=== PATIENT | female | born 1935 | race Caucasian/White ===

== ENCOUNTER → 2016-09-24 | Outpatient (CLI) | payer MEDICARE, OTHER ==
--- NOTE | 2016-09-24 14:58 | US ---
EXAMINATION TYPE: US carotid duplex BILAT DATE OF EXAM: 09/24/2016 2:15 PM COMPARISON: NONE CLINICAL HISTORY: Carotid Bruit R09.89. Carotid bruit right side EXAM MEASUREMENTS: RIGHT: Peak Systolic Velocity (PSV) cm/sec ----- Right CCA: 68.6 ----- Right ICA: 94.1 ----- Right ECA: 99.6 ICA/CCA ratio: 1.4 RIGHT: End Diastole cm/sec ----- Right CCA: 13.6 ----- Right ICA: 32.5 ----- Right ECA: 0.0 LEFT: Peak Systolic Velocity (PSV) cm/sec ----- Left CCA: 74.7 ----- Left ICA: 76.4 ----- Left ECA: 119.8 ICA/CCA ratio: 1.0 LEFT: End Diastole cm/sec ----- Left CCA: 18.8 ----- Left ICA: 27.6 ----- Left ECA: 12.4 VERTEBRALS (direction of flow): Right Vertebral: Antegrade Left Vertebral: Antegrade TECHNOLOGIST IMPRESSION: No evidence of significant hemodynamic stenosis bilaterally Grayscale, color Doppler, spectral Doppler imaging performed. Atheromatous changes are present at the carotid bulbs. IMPRESSION: No hemodynamic significant stenosis of the proximal internal carotid arteries bilaterall y by Doppler criteria, and indirect measurement of carotid stenosis
== END | disposition home or self-care (01) ==
LOC: RADUSWWP 13:54
PROVIDERS: ATTEND Family Medicine
DX: R09.89 Other specified symptoms and signs involving the circulatory and respiratory systems (principal)
CPT/HCPCS: 93880

== ENCOUNTER 2017-04-28 16:23 | Emergency (ER) | payer MEDICARE, OTHER ==
[2017-04-28] MEDS ORDERED: SODIUM CHLORIDE 0.9% 1,000 ML IV STA (17:01)
[2017-04-28 17:30] LABS: Basophils % (A) 0 %; CH 29.7; CHCM 33.4; Eosinophils # (A) 0.1 k/uL (0-0.7); Eosinophils % (A) 2 %; HCT 40.4 % (34.0-46.0); HDW 2.22; HGB 13.4 gm/dL (11.4-16.0); Luc # (Auto) 0.08; Luc % (Auto) 2; Lymphocytes # (A) 0.9 k/uL (1.0-4.8); Lymphocytes % (A) 21 %; MCH 29.5 pg (25.0-35.0); MCHC 33.1 g/dL (31.0-37.0); MCV 89.1 fL (80.0-100.0); Mean Platelet Volume 7.3; Monocytes # (A) 0.3 k/uL (0-1.0); Monocytes % (A) 7 %; Neutrophils % (A) 68 %; RBC 4.53 m/uL (3.80-5.40); RDW 13.3 % (11.5-15.5); WBC 4.4 k/uL (3.8-10.6)
[2017-04-28 17:43] LABS: ALT 28 U/L (9-52); AST 18 U/L (14-36); Alkaline Phosphatase 70 U/L (38-126); Anion Gap 9 mmol/L; Blood Urea Nitrogen 11 mg/dL (7-17); Carbon Dioxide 22 mmol/L (22-30); Chloride 104 mmol/L (98-107); Glucose 93 mg/dL (74-99); Non-African American GFR(MDRD) 60 (>60 ml/min/1.73 sqM); Potassium 4.2 mmol/L (3.5-5.1); Sodium 135 mmol/L (137-145); Total Bilirubin 0.3 mg/dL (0.2-1.3); Total Protein 6.5 g/dL (6.3-8.2)
--- NOTE | 2017-04-28 17:49 | ED ---
General Adult HPI - General Chief complaint: Urogenital Stated complaint: UTI Time Seen by Provider: 04/28/17 16:52 Source: patient, RN notes reviewed Mode of arrival: wheelchair Limitations: no limitations - History of Present Illness Initial comments: 82-year-old female presents emergency Department chief complaint of right-sided flank pain. Patient states it started on for this with her Dr. she was diagnosed with UTI. Patient states her flank pain has been progressively worsening. Patient states she's had low-grade fevers at home. Patient states she's had nausea without vomiting. She called her doctor today and they referred her here due to her worsening symptoms. She states that she started the antibiotics initially 5:00. Patient was concerned due to the fact that she is just not feeling any better and she is getting worse so she thought that she should be reevaluated. Patient denies any recent fever, chills, shortness of breath, chest pain,vomiting, numbness or tingling, dysuria or hematuria, constipation or diarrhea, headaches or visual changes, or any other current symptoms. - Related Data Home Medications Medication Instructions Recorded Confirmed Cholecalciferol [Vitamin D3] 1,000 unit PO DAILY 12/14/14 04/28/17 Cyanocobalamin [Vitamin B-12] 500 mcg PO DAILY 12/14/14 04/28/17 Ubidecarenone [Co Q-10] 100 mg PO DAILY 12/14/14 04/28/17 Cephalexin [Keflex] 500 mg PO Q6HR 04/28/17 04/28/17 Ibuprofen [Motrin] 200 - 400 mg PO Q6HR PRN 04/28/17 04/28/17 Levothyroxine Sodium [Synthroid] 88 mcg PO DAILY 04/28/17 04/28/17 Previous Rx's Medication Instructions Recorded Levofloxacin [Levaquin] 750 mg PO DAILY #7 tab 04/28/17 Allergies Allergy/AdvReac Type Severity Reaction Status Date / Time Iodinated Contrast- Oral and Allergy Anaphylaxis Verified 04/28/17 16:52 IV Dye [Iodinated Contrast Media - IV Dye] atorvastatin calcium AdvReac Nausea Verified 04/28/17 16:52 [From Lipitor] celecoxib [From Celebrex] AdvReac Nausea Verified 04/28/17 16:52 influenza virus vaccine, AdvReac Nausea & Verified 04/28/17 16:29 specific Vomiting [influenza virus vacc,specific] Influenza Virus Vaccines AdvReac Nausea & Verified 04/28/17 16:52 Vomiting & Diarrhea Review of Systems ROS Statement: Those systems with pertinent positive or pertinent negative responses have been documented in the HPI. ROS Other: All systems not noted in ROS Statement are negative. Past Medical History Past Medical History: Cancer, Hearing Disorder / Deafness, Hyperlipidemia, Osteoarthritis (OA), Thyroid Disorder Additional Past Medical History / Comment(s): bowel obstruction, right breast cancer, skin cancer, osteoporosis History of Any Multi-Drug Resistant Organisms: MRSA Date of last positivie culture/infection: Pt states 6-7yrs ago MDRO Source:: post surgical wound from bowel resection Past Surgical History: Bowel Resection, Breast Surgery, Cholecystectomy, Hysterectomy Additional Past Surgical History / Comment(s): bilateral cataracts Past Anesthesia/Blood Transfusion Reactions: No Reported Reaction Past Psychological History: No Psychological Hx Reported Smoking Status: Never smoker Past Alcohol Use History: None Reported Past Drug Use History: None Reported - Past Family History Mother Additional Family Medical History / Comment(s): Stomach cancer Father Family Medical History: CVA/TIA General Exam - General Exam Comments Initial Comments: General: The patient is awake and alert, in no distress, and does not appear acutely ill. Eye: Pupils are equal, round and reactive to light, extra-ocular movements are intact; there is normal conjunctiva bilaterally. No signs of icterus. Ears, nose, mouth and throat: There are moist mucous membranes and no oral lesions. Neck: The neck is supple, there is no tenderness. Cardiovascular: There is a regular rate and rhythm. No murmur, rub or gallop is appreciated. Respiratory: Lungs are clear to auscultation, respirations are non-labored, breath sounds are equal. No wheezes, stridor, rales, or rhonchi. Gastrointestinal: Soft, non-distended, mild tenderness in right lower quadrant of the abdomen without masses or organomegaly noted. There is no rebound or guarding present. No CVA tenderness. Bowel sounds are unremarkable. Back: There is no tenderness to palpation in the midline. There is no obvious deformity. No rashes noted. Musculoskeletal: Normal ROM, no tenderness, There is no pedal edema. There is no calf tenderness or swelling. Sensation intact. Pulses equal bilaterally 2+. Neurological: CN II-XII intact, There are no obvious motor or sensory deficits. Coordination appears grossly intact. Speech is normal. Skin: Skin is warm and dry and no rashes or lesions are noted. Psychiatric: Cooperative, appropriate mood & affect, normal judgment. Limitations: no limitations Course Vital Signs 04/28/17 16:26 Temperature 99.1 F Pulse Rate 93 Respiratory 18 Rate Blood Pressure 127/71 O2 Sat by Pulse 95 Oximetry Medical Decision Making - Medical Decision Making 82-year-old female presents for right-sided abdominal pain. At this time patient's laboratory is reviewed that does show no white blood cell, vital signs are stable she does appear to have suspicion for UTI and CT does show suspicion for right lower lobe pneumonia. This time we will put the patient on Levaquin. We discussed stopping the Keflex. We discussed close follow-up return parameters all patient's questions. She stated she understood and she is agreement plan. She'll be discharged. - Lab Data Result diagrams: 04/28/17 17:18 04/28/17 17:18 Lab Results 04/28/17 04/28/17 04/28/17 Range/Units 17:18 17:18 17:18 WBC 4.4 (3.8-10.6) k/uL RBC 4.53 (3.80-5.40) m/uL Hgb 13.4 (11.4-16.0) gm/dL Hct 40.4 (34.0-46.0) % MCV 89.1 (80.0-100.0) fL MCH 29.5 (25.0-35.0) pg MCHC 33.1 (31.0-37.0) g/dL RDW 13.3 (11.5-15.5) % Plt Count 178 (150-450) k/uL Neutrophils % 68 % Lymphocytes % 21 % Monocytes % 7 % Eosinophils % 2 % Basophils % 0 % Neutrophils # 3.0 (1.3-7.7) k/uL Lymphocytes # 0.9 L (1.0-4.8) k/uL Monocytes # 0.3 (0-1.0) k/uL Eosinophils # 0.1 (0-0.7) k/uL Basophils # 0.0 (0-0.2) k/uL Sodium 135 L (137-145) mmol/L Potassium 4.2 (3.5-5.1) mmol/L Chloride 104 (98-107) mmol/L Carbon Dioxide 22 (22-30) mmol/L Anion Gap 9 mmol/L BUN 11 (7-17) mg/dL Creatinine 0.90 (0.52-1.04) mg/dL Est GFR (MDRD) Af Amer >60 (>60 ml/min/1.73 sqM) Est GFR (MDRD) Non-Af 60 (>60 ml/min/1.73 sqM) Glucose 93 (74-99) mg/dL Plasma Lactic Acid Jefferson 1.6 (0.7-2.0) mmol/L Calcium 9.0 (8.4-10.2) mg/dL Total Bilirubin 0.3 (0.2-1.3) mg/dL AST 18 (14-36) U/L ALT 28 (9-52) U/L Alkaline Phosphatase 70 (38-126) U/L Total Protein 6.5 (6.3-8.2) g/dL Albumin 3.5 (3.5-5.0) g/dL Urine Color Urine Appearance (Clear) Urine pH (5.0-8.0) Ur Specific [place] (1.001-1.035) Urine Protein (Negative) Urine Glucose (UA) (Negative) Urine Ketones (Negative) Urine Blood (Negative) Urine Nitrite (Negative) Urine Bilirubin (Negative) Urine Urobilinogen (<2.0) mg/dL Ur Leukocyte Esterase (Negative) Urine RBC (0-5) /hpf Urine WBC (0-5) /hpf Ur Squamous Epith Cells (0-4) /hpf Urine Bacteria (None) /hpf Urine Mucus (None) /hpf 04/28/17 Range/Units 17:43 WBC (3.8-10.6) k/uL RBC (3.80-5.40) m/uL Hgb (11.4-16.0) gm/dL Hct (34.0-46.0) % MCV (80.0-100.0) fL MCH (25.0-35.0) pg MCHC (31.0-37.0) g/dL RDW (11.5-15.5) % Plt Count (150-450) k/uL Neutrophils % % Lymphocytes % % Monocytes % % Eosinophils % % Basophils % % Neutrophils # (1.3-7.7) k/uL Lymphocytes # (1.0-4.8) k/uL Monocytes # (0-1.0) k/uL Eosinophils # (0-0.7) k/uL Basophils # (0-0.2) k/uL Sodium (137-145) mmol/L Potassium (3.5-5.1) mmol/L Chloride (98-107) mmol/L Carbon Dioxide (22-30) mmol/L Anion Gap mmol/L BUN (7-17) mg/dL Creatinine (0.52-1.04) mg/dL Est GFR (MDRD) Af Amer (>60 ml/min/1.73 sqM) Est GFR (MDRD) Non-Af (>60 ml/min/1.73 sqM) Glucose (74-99) mg/dL Plasma Lactic Acid Jefferson (0.7-2.0) mmol/L Calcium (8.4-10.2) mg/dL Total Bilirubin (0.2-1.3) mg/dL AST (14-36) U/L ALT (9-52) U/L Alkaline Phosphatase (38-126) U/L Total Protein (6.3-8.2) g/dL Albumin (3.5-5.0) g/dL Urine Color Yellow Urine Appearance Clear (Clear) Urine pH 6.0 (5.0-8.0) Ur Specific [place] 1.012 (1.001-1.035) Urine Protein Negative (Negative) Urine Glucose (UA) Negative (Negative) Urine Ketones Negative (Negative) Urine Blood Negative (Negative) Urine Nitrite Negative (Negative) Urine Bilirubin Negative (Negative) Urine Urobilinogen <2.0 (<2.0) mg/dL Ur Leukocyte Esterase Large H (Negative) Urine RBC <1 (0-5) /hpf Urine WBC 46 H (0-5) /hpf Ur Squamous Epith Cells <1 (0-4) /hpf Urine Bacteria Rare H (None) /hpf Urine Mucus Rare H (None) /hpf - Radiology Data Radiology results: report reviewed, image reviewed Disposition Clinical Impression: Right lower lobe pneumonia, UTI (urinary tract infection) Disposition: HOME SELF-CARE Instructions: Urinary Tract Infection in Women (ED), Bacterial Pneumonia (ED) Additional Instructions: Please use medication as discussed. Please follow up with family doctor if symptoms have not improved over the next two days. Please return to the emergency room if your symptoms increase or worsen or for any other concerns. Prescriptions: Levofloxacin [Levaquin] 750 mg PO DAILY #7 tab Referrals: Rob Arias MD [Primary Care Provider] - 1-2 days Time of Disposition: 18:39
[2017-04-28 17:59] LABS: Appearance,Urine Clear (Clear); Bacteria,Urine Rare /hpf; Bilirubin,Urine Negative (Negative); Glucose,Urine (UA) Negative (Negative); Ketones,Urine Negative (Negative); Leukocyte Esterase,Urine Large (Negative); Mucus,Urine Rare /hpf; Nitrite,Urine Negative (Negative); Particle Count 1168; Protein,Urine Negative (Negative); RBC,Urine <1 /hpf (0-5); Specific Gravity,Urine 1.012 (1.001-1.035); Squamous Epithelial Cell,Urine <1 /hpf (0-4); UA Billing (MACRO vs. MICRO) MICRO; Urobilinogen,Urine <2.0 mg/dL (<2.0); WBC,Urine 46 /hpf (0-5)
--- NOTE | 2017-04-28 18:28 | CT ---
EXAMINATION TYPE: CT abdomen pelvis wo con DATE OF EXAM: 04/28/2017 COMPARISON: 08/26/2015 HISTORY: Patient complains of right flank pain and fever. CT DLP: 400.8 mGycm Automated exposure control for dose reduction was used. TECHNIQUE: Helical acquisition of images was performed from the lung bases through the pelvis. FINDINGS: There is some patchy pneumonic consolidation at the right posterior lung base. There is a hiatal girma ia. There is no pleural effusion. There are clips from cholecystectomy. Spleen and pancreas appear normal. Liver shows no focal defect. There is umbilical hernia that contains omental fat. I see no intestinal wall thickening. Bladder is almost empty. There is fluid-filled loop of bowel in the pelvis on the right side that is probably the cecum. There are spondylotic changes in the lumbar spine. Abdominal aorta is atheromatous. There is no retroperitoneal adenopathy. Kidneys have normal size. There is no hydronephrosis. Ureters are not dilated. There is no adrenal ma ss. Common bile duct is large and measures 1.5 cm. There is no dilation of the intrahepatic bile ducts. IMPRESSION: Hiatal hernia. UMBILICAL HERNIA CONTAINS OMENTAL FAT. THERE IS CLEARING OF THE SMALL BOWEL ILEUS FINDINGS COMPARED T O OLD EXAM. STABLE MILDLY DILATED COMMON BILE DUCT BUT NO DILATION OF THE INTRAHEPATIC BILE DUCTS. THERE IS NEW RIGHT LOWER LOBE PNEUMONIA COMPARED TO OLD EXAM.
[2017-04-28] MEDS ORDERED: LEVOFLOXACIN 750 MG TAB PO STA (18:40)
[2017-04-28] MEDS ORDERED: HYDROmorphone 1 MG/ML 1 ML SYRINGE IVP STA (18:40)
[2017-04-28 19:42] VITALS: BP 144/64; PULSE 85; RESP 18; TEMP 98.4
== END 2017-04-28 19:53 | disposition home or self-care (01) ==
LOC: EC 16:23
DX: J18.9 Pneumonia, unspecified organism (principal); N39.0 Urinary tract infection, site not specified; E07.9 Disorder of thyroid, unspecified; Z85.3 Personal history of malignant neoplasm of breast; Z85.828 Personal history of other malignant neoplasm of skin; Z86.14 Personal history of Methicillin resistant Staphylococcus aureus infection; Z90.49 Acquired absence of other specified parts of digestive tract; Z90.710 Acquired absence of both cervix and uterus; Z79.899 Other long term (current) drug therapy; Z91.041 Radiographic dye allergy status; Z88.8 Allergy status to other drugs, medicaments and biological substances; Z88.1 Allergy status to other antibiotic agents; Z88.7 Allergy status to serum and vaccine
CPT/HCPCS: 36415; 80053; 83605; 85025; 81001; 87040; 87086; 74176; 99284; 96365; 96375; 96361; J0696; J1170

== ENCOUNTER → 2017-10-12 | Outpatient (CLI) | payer MEDICARE ==
--- NOTE | 2017-10-12 16:29 | XR ---
EXAMINATION TYPE: XR chest 2V DATE OF EXAM: 10/12/2017 COMPARISON: Prior chest x-ray 12/13/2014 HISTORY: Dyspnea TECHNIQUE: Frontal and lateral views of the chest are obtained. FINDINGS: There is no focal air space opacity, pleural effusion, or pneumothorax seen. The cardiac silhouette size is within normal limits. Prominent lung volume could be indicative of COPD. Surgical clips present in the right axillary region again noted. Patient is rotated, there may be spinal curva ture. Apical pleural thickening is stable. The osseous structures are intact. IMPRESSION: No acute cardiopulmonary process.
== END | disposition home or self-care (01) ==
LOC: RADXRMAIN 15:35
PROVIDERS: ATTEND Physician Assistant
DX: R06.00 Dyspnea, unspecified (principal)
CPT/HCPCS: 71046

== ENCOUNTER 2018-02-03 10:15 | Day surgery (SDC) | payer MEDICARE ==
[2018-02-02 09:48] VITALS: BMI 29.2
--- NOTE | 2018-02-03 09:13 | P.GSHP ---
History of Present Illness H&P Date: 02/03/18 CHIEF COMPLAINT: Colon screen HISTORY OF PRESENT ILLNESS: The patient is a 83-year-old female who presents for colon screen. Lower endoscopy was offered for further evaluation and management. PAST MEDICAL HISTORY: Please see list. PAST SURGICAL HISTORY: Please see list. MEDICATIONS: Please see list. ALLERGIES: Please see list. SOCIAL HISTORY: No illicit drug use FAMILY HISTORY: No reports of Crohn disease or ulcerative colitis. REVIEW OF ORGAN SYSTEMS: CONSTITUTIONAL: No reports of fevers or chills. PHYSICAL EXAM: VITAL SIGNS: Stable GENERAL: Well-developed pleasant in no acute distress. HEENT: No scleral icterus. Extraocular movements grossly intact. Moist buccal mucosa. NECK: Supple without lymphadenopathy. CHEST: Unlabored respirations. Equal bilateral excursions. CARDIOVASCULAR: Regular rate and rhythm. Distal 2+ pulses. ABDOMEN: Soft, nontender, nondistended. MUSCULOSKELETAL: No clubbing, cyanosis, or edema. ASSESSMENT: 1. Colon screen. PLAN: 1. Recommend proceeding with a lower endoscopy Past Medical History Past Medical History: Cancer, Hearing Disorder / Deafness, Hyperlipidemia, Osteoarthritis (OA), Thyroid Disorder Additional Past Medical History / Comment(s): constipation for 2 1/2 weeks, able to pass gas and very small amounts of stools,Hx bowel obstruction, right breast cancer-1997 no chemo or radiation, melanoma face 2015, osteoporosis History of Any Multi-Drug Resistant Organisms: MRSA Date of last positivie culture/infection: 2010? MDRO Source:: post surgical wound from bowel resection Past Surgical History: Appendectomy, Bowel Resection, Breast Surgery, Cholecystectomy, Hysterectomy Additional Past Surgical History / Comment(s): bilateral cataracts,rt mastectomy Past Anesthesia/Blood Transfusion Reactions: No Reported Reaction Smoking Status: Never smoker - Past Family History Mother Family Medical History: Cancer Additional Family Medical History / Comment(s): Stomach cancer Father Family Medical History: CVA/TIA Medications and Allergies Home Medications Medication Instructions Recorded Confirmed Type Cholecalciferol [Vitamin D3] 2,000 unit PO DAILY 12/14/14 02/02/18 History Cyanocobalamin [Vitamin B-12] 1,000 mcg PO DAILY 12/14/14 02/02/18 History Ubidecarenone [Co Q-10] 100 mg PO DAILY 12/14/14 02/02/18 History Levothyroxine Sodium [Synthroid] 88 mcg PO QAM 10/24/17 07/31/18 History Acetaminophen [Tylenol] 500 mg PO Q4-6H PRN 02/02/18 02/02/18 History Matys Acid Indigestion Supp 1 tbsp PO TID-W/MEALS 02/02/18 02/02/18 History Allergies Allergy/AdvReac Type Severity Reaction Status Date / Time Iodinated Contrast- Oral and Allergy Anaphylaxis Verified 02/02/18 09:37 IV Dye [Iodinated Contrast Media - IV Dye] atorvastatin calcium AdvReac Nausea Verified 02/02/18 09:37 [From Lipitor] celecoxib [From Celebrex] AdvReac Nausea Verified 02/02/18 09:37 influenza virus vaccine, AdvReac Nausea & Verified 02/02/18 09:37 specific Vomiting & [influenza virus Diarrhea,high vacc,specific] fever Influenza Virus Vaccines AdvReac Nausea & Verified 02/02/18 09:37 Vomiting & Diarrhea,high fever
[~2018-02-03 10:15] MED LIST: LACTATED RINGERS 1,000 ML IV SCH; LIDOCAINE 1% 20 ML VIAL (10MG/ML) FOR IV START INTRADERMA PRN
[2018-02-03 11:46] VITALS: TEMP 98
[2018-02-03] MEDS ORDERED: LIDOCAINE 1% INJ 10MG/ML (20 ML MDV) ONE (12:12)
[2018-02-03] MEDS ORDERED: ONDANSETRON 4 MG/2 ML VIAL ONE (12:12)
[2018-02-03] MEDS ORDERED: PROPOFOL 10 MG/ML 20 ML VIAL IV ONE (12:12)
[2018-02-03 12:53] VITALS: RESP 20
--- NOTE | 2018-02-03 13:00 | P.PCN ---
Date of Procedure: 02/03/18 Description of Procedure: PREOPERATIVE DIAGNOSIS: Change in bowel habits History of partial colectomy Personal history of high-risk colon polyps POSTOPERATIVE DIAGNOSIS: Change in bowel habits History of partial colectomy Personal history of high-risk colon polyps Diverticulosis, scattered Tumor adenoma of transverse colon and sigmoid colon OPERATION: Colonoscopy to the ileocecal valve and appendiceal orifice SURGEON: Kailyn Pineda MD. ANESTHESIA: MAC. INDICATIONS: The patient is a 83-year-old female who presents for colonoscopy screening. Her last colonoscopy was more than 10+ years ago. Benefits and risks were described and informed consent was obtained. DESCRIPTION OF PROCEDURE: The patient had undergone Gatorade, MiraLAX and Dulcolax prep. She had been brought into the operating room and laid in the left lateral decubitus position. After adequate intravenous sedation, the rectum was examined with 2% lidocaine jelly. No external hemorrhoids were encountered. The rectal tone was within normal limits. No lesions were palpated in the rectal vault. An Olympus colonoscope was advanced until the ileocecal valve were clearly viewed. The prep was excellent with clear visualization of the mucosal folds. Her colon was extremely tortuous with high risk of colonic volvulus. Abdominal pressure was used to advance the scope. Tubular adenomas were identified along the sigmoid colon and transverse colon over 1 cm however difficult to obtain secondary to tortuosity of colon. The scope was removed with visualization of each mucosal fold. Scattered diverticulosis was encountered. No evidence of focal colitis was found. Retroflexion of the scope demonstrated grade 1 internal hemorrhoids without active bleeding or inflammation. The colon was desufflated. The patient had tolerated the procedure well. Withdrawal time was over 6 minutes. FINDINGS: Internal hemorrhoids, grade 1 No external prolapsed hemorrhoids. No arteriovenous malformations. Tubular adenomas were identified along the sigmoid colon and transverse colon over 1 cm however difficult to obtain secondary to tortuosity of colon. No focal colitis Colonic volvulus Sigmoid diverticulosis RECOMMENDATIONS: Barium enema today. Repeat colonoscopy one year for polypectomy Plan - Discharge Summary New Discharge Prescriptions: No Action Ubidecarenone [Co Q-10] 100 mg PO DAILY Cyanocobalamin [Vitamin B-12] 1,000 mcg PO DAILY Cholecalciferol [Vitamin D3] 2,000 unit PO DAILY Levothyroxine Sodium [Synthroid] 88 mcg PO QAM Matys Acid Indigestion Supp 1 tbsp PO TID-W/MEALS Acetaminophen [Tylenol] 500 mg PO Q4-6H PRN PRN Reason: Pain Discharge Medication List Cholecalciferol [Vitamin D3] 2,000 unit PO DAILY 12/14/14 [History] Cyanocobalamin [Vitamin B-12] 1,000 mcg PO DAILY 12/14/14 [History] Ubidecarenone [Co Q-10] 100 mg PO DAILY 12/14/14 [History] Levothyroxine Sodium [Synthroid] 88 mcg PO QAM 04/28/17 [History] Acetaminophen [Tylenol] 500 mg PO Q4-6H PRN 02/02/18 [History] Matys Acid Indigestion Supp 1 tbsp PO TID-W/MEALS 02/02/18 [History] Follow up Appointment(s)/Referral(s): Kailyn Pineda MD [STAFF PHYSICIAN] - 02/09/18 Patient Instructions/Handouts: Colorectal Polyps (GEN), Diverticulosis Diet ( GEN), Diverticulosis (GEN) Activity/Diet/Wound Care/Special Instructions: Repeat colonoscopy one year, 2018 for high-risk colon polyp Discharge Disposition: HOME SELF-CARE
[2018-02-03 13:12] VITALS: BP 152/73; PULSE 66
--- NOTE | 2018-02-03 14:16 | FL ---
EXAMINATION TYPE: FL barium enema DATE OF EXAM: 02/03/2018 COMPARISON: CT abdomen pelvis April 28, 2017. HISTORY: Incomplete colonoscopy. History of constipation for 3 weeks with intermittent pain. TECHNIQUE: A double contrast barium enema study is attempted. A total of 1 minute 17 seconds of fluo roscopic time was utilized during procedure. FINDINGS: Pile Driver view of the abdomen shows overall prominence of gas throughout small and large bowel loops. Gas is seen in nondistended stomach. Cholecystectomy clips are redemonstrated. Barium enema was attempted. There is poor proximal progression likely due to gas prominent colonic lo ops after contrast reaches level of splenic flexure. Patient then was unable to tolerate procedure as there was significant leak from rectum. At this point procedure had to be terminated. IMPRESSION: Unsuccessful enema study as patient does not have satisfactory rectal control or tone to prevent leakage. Spot imaging not performed. Consider further investigation with CT colonoscopy as i f felt clinically necessary.
== END 2018-02-03 13:29 | disposition home or self-care (01) ==
LOC: ORWHC2ENDO 10:15
PROVIDERS: ATTEND Surgery Plastic and Reconstructive Surgery
DX: D12.5 Benign neoplasm of sigmoid colon (principal); D12.3 Benign neoplasm of transverse colon; K57.30 Diverticulosis of large intestine without perforation or abscess without bleeding; K64.0 First degree hemorrhoids; Q43.8 Other specified congenital malformations of intestine; K56.2 Volvulus; Z86.010 Personal history of colon polyps; Z90.49 Acquired absence of other specified parts of digestive tract; H91.90 Unspecified hearing loss, unspecified ear; E78.5 Hyperlipidemia, unspecified; M19.90 Unspecified osteoarthritis, unspecified site; E07.9 Disorder of thyroid, unspecified; M81.0 Age-related osteoporosis without current pathological fracture; Z85.3 Personal history of malignant neoplasm of breast; Z85.820 Personal history of malignant melanoma of skin; Z86.14 Personal history of Methicillin resistant Staphylococcus aureus infection; Z79.890 Hormone replacement therapy; Z79.899 Other long term (current) drug therapy; Z91.041 Radiographic dye allergy status
CPT/HCPCS: 74270; 45378; J2405; J2001; J2704

== ENCOUNTER 2018-02-05 15:40 | Emergency (ER) | payer MEDICARE ==
[2018-02-05 15:58] VITALS: TEMP 97.9
--- NOTE | 2018-02-05 16:55 | ED ---
General Adult HPI - General Chief complaint: Abdominal Pain Stated complaint: Abd Pain Time Seen by Provider: 02/05/18 16:12 Source: patient, family, RN notes reviewed, old records reviewed Mode of arrival: wheelchair Limitations: no limitations - History of Present Illness Initial comments: Chief complaint and history of present illness this is an 83-year-old female here with her significant other. The patient reports abdominal bloating. No nausea no vomiting. She has not had a bowel movement or passed gas since she had a colonoscopy followed by barium enema yesterday. The patient's colonoscopy was done because she had had frequent episodes of constipation. The colonoscopy report was reviewed. The surgeon mentioned tortuous bowel. No biopsies performed. - Related Data Home Medications Medication Instructions Recorded Confirmed Cholecalciferol [Vitamin D3] 2,000 unit PO DAILY 12/14/14 02/03/18 Cyanocobalamin [Vitamin B-12] 1,000 mcg PO DAILY 12/14/14 02/03/18 Ubidecarenone [Co Q-10] 100 mg PO DAILY 12/14/14 02/03/18 Levothyroxine Sodium [Synthroid] 88 mcg PO QAM 04/28/17 02/03/18 Acetaminophen [Tylenol] 500 mg PO Q4-6H PRN 02/02/18 02/03/18 Matys Acid Indigestion Supp 1 tbsp PO TID-W/MEALS 02/02/18 02/03/18 Previous Rx's Medication Instructions Recorded Sulfamethox-Tmp 800-160Mg [Bactrim 1 each PO Q12HR #20 tab 02/05/18 DS 800-160 mg] Allergies Allergy/AdvReac Type Severity Reaction Status Date / Time Iodinated Contrast- Oral and Allergy Anaphylaxis Verified 02/05/18 15:59 IV Dye [Iodinated Contrast Media - IV Dye] atorvastatin calcium AdvReac Nausea Verified 02/05/18 15:59 [From Lipitor] celecoxib [From Celebrex] AdvReac Nausea Verified 02/05/18 15:59 influenza virus vaccine, AdvReac Nausea & Verified 02/05/18 15:59 specific Vomiting & [influenza virus Diarrhea,high vacc,specific] fever Influenza Virus Vaccines AdvReac Nausea & Verified 02/05/18 15:59 Vomiting & Diarrhea,high fever Review of Systems ROS Statement: Those systems with pertinent positive or pertinent negative responses have been documented in the HPI. Review of systems. No visual acuity changes, patient has had bilateral cataract surgery. Denies any chest pain or shortness of breath. States that she feels bloated. Mild discomfort no cramping. No burping, no flatus, no bowel movement. No neuro deficits. All systems are reviewed. Past medical problems significant for breast cancer, hyperlipidemia, osteoarthritis, hypothyroidism and constipation. Her surgeries include appendectomy, right breast resection because of breast cancer. Bowel resection because of diverticulosis, cholecystectomy, hysterectomy as noted above bilateral cataracts. Family history includes cancers, stomach, lung and breast. Patient has ALLERGIES to iodine contrast, Lipitor, influenza virus vaccine and celecoxib. Nonsmoker nondrinker ROS Other: All systems not noted in ROS Statement are negative. Past Medical History Past Medical History: Cancer, Hearing Disorder / Deafness, Hyperlipidemia, Osteoarthritis (OA), Thyroid Disorder Additional Past Medical History / Comment(s): constipation ,Hx bowel obstruction , right breast cancer-1997 no chemo or radiation, melanoma face 2015, osteoporosis History of Any Multi-Drug Resistant Organisms: MRSA Date of last positivie culture/infection: 2010? MDRO Source:: post surgical wound from bowel resection Past Surgical History: Appendectomy, Bowel Resection, Breast Surgery, Cholecystectomy, Hysterectomy Additional Past Surgical History / Comment(s): bilateral cataracts,rt mastectomy Past Anesthesia/Blood Transfusion Reactions: No Reported Reaction Past Psychological History: No Psychological Hx Reported Smoking Status: Never smoker - Past Family History Mother Family Medical History: Cancer Additional Family Medical History / Comment(s): Stomach cancer Father Family Medical History: CVA/TIA General Exam - General Exam Comments Initial Comments: General: The patient is awake and alert, here because she has not passed gas and feels bloated after having had a colonoscopy and barium enema just yesterday. Vital signs show a temperature 97.9 pulse 88 respiratory rate 18 pulse ox 94% on room air and blood pressure 107/76. Eye: Pupils are equal, round and reactive to light, extra-ocular movements are intact ; there is normal conjunctiva bilaterally. No signs of icterus. History of bilateral cataract surgery. Ears, nose, mouth and throat: There are moist mucous membranes and no oral lesions. Neck: The neck is supple, there is no tenderness Cardiovascular: There is a regular rate and rhythm. No murmur, rub or gallop is appreciated. Respiratory: Lungs are clear to auscultation, respirations are non-labored, breath sounds are equal. No wheezes, stridor, rales, or rhonchi. Gastrointestinal: Examination of the abdomen shows patient's mildly tympanitic, states and looks bloated. Hypoactive bowel sounds. No pain with deep palpation, no organomegaly. Back: No back pain Musculoskeletal: Sensation intact. Pulses equal bilaterally 2+. Neurological: Denies any neuro deficits, no dizziness. Alert and oriented. Skin: Denies any rashes Limitations: no limitations Course Vital Signs 02/05/18 15:54 Temperature 97.9 F Pulse Rate 88 Respiratory 18 Rate Blood Pressure 107/76 O2 Sat by Pulse 94 L Oximetry Medical Decision Making - Medical Decision Making Medical decision making; this is an 83-year-old female here for complaint of bloating. Has not passed gas or bowel movement since having had a colonoscopy yesterday followed by a barium enema. X-ray of the abdomen was done and reviewed by radiologist his impression is there is barium and large bowel. There is no sign of intestinal obstruction or pneumoperitoneum. Fecal pattern is normal. There is mild lumbar dextroscoliosis. Lung bases are clear. There are surgical clips in the right upper quadrant. Impression; nonacute abdomen. As read by Dr. Michaud Labs show white count 6 hemoglobin 14 hematocrit of 44 potassium 4.2. BUN 9 creatinine 0.9 the GFR 60. The patient's urine shows 22 whites and 1 red positive leukoesterase. Amylase lipase normal limits. Blood sugar 94. The plant this time the patient be placed on medication for what appears to be urinary tract infection, cultures are pending. She'll also be advised to increase her fluids and take mag citrate to help her intestines discharge the air and barium from yesterday's procedure. Advised return emergency room if she has increased discomfort or problems. Otherwise follow-up with family physician and her surgeon. - Lab Data Result diagrams: 02/05/18 16:45 02/05/18 16:45 Lab Results 02/05/18 02/05/18 02/05/18 Range/Units 16:45 16:45 16:45 WBC 6.0 (3.8-10.6) k/uL RBC 5.08 (3.80-5.40) m/uL Hgb 14.8 (11.4-16.0) gm/dL Hct 44.5 (34.0-46.0) % MCV 87.5 (80.0-100.0) fL MCH 29.1 (25.0-35.0) pg MCHC 33.2 (31.0-37.0) g/dL RDW 12.7 (11.5-15.5) % Plt Count 212 (150-450) k/uL Neutrophils % 55 % Lymphocytes % 31 % Monocytes % 7 % Eosinophils % 4 % Basophils % 0 % Neutrophils # 3.3 (1.3-7.7) k/uL Lymphocytes # 1.9 (1.0-4.8) k/uL Monocytes # 0.4 (0-1.0) k/uL Eosinophils # 0.3 (0-0.7) k/uL Basophils # 0.0 (0-0.2) k/uL Sodium 141 (137-145) mmol/L Potassium 4.2 (3.5-5.1) mmol/L Chloride 106 (98-107) mmol/L Carbon Dioxide 26 (22-30) mmol/L Anion Gap 9 mmol/L BUN 9 (7-17) mg/dL Creatinine 0.90 (0.52-1.04) mg/dL Est GFR (CKD-EPI)AfAm 69 (>60 ml/min/1.73 sqM) Est GFR (CKD-EPI)NonAf 60 (>60 ml/min/1.73 sqM) Glucose 94 (74-99) mg/dL Calcium 9.8 (8.4-10.2) mg/dL Total Bilirubin 0.4 (0.2-1.3) mg/dL AST 29 (14-36) U/L ALT 29 (9-52) U/L Alkaline Phosphatase 76 (38-126) U/L Total Protein 7.3 (6.3-8.2) g/dL Albumin 4.4 (3.5-5.0) g/dL Amylase 53 (30-110) U/L Lipase 109 (23-300) U/L Urine Color Light Yellow Urine Appearance Clear (Clear) Urine pH 6.0 (5.0-8.0) Ur Specific [place] 1.005 (1.001-1.035) Urine Protein Negative (Negative) Urine Glucose (UA) Negative (Negative) Urine Ketones Negative (Negative) Urine Blood Negative (Negative) Urine Nitrite Negative (Negative) Urine Bilirubin Negative (Negative) Urine Urobilinogen <2.0 (<2.0) mg/dL Ur Leukocyte Esterase Large H (Negative) Urine RBC 1 (0-5) /hpf Urine WBC 22 H (0-5) /hpf Urine WBC Clumps Rare H (None) /hpf Ur Squamous Epith Cells <1 (0-4) /hpf Urine Bacteria Rare H (None) /hpf Disposition Clinical Impression: Constipation by delayed colonic transit, UTI (urinary tract infection) Disposition: HOME SELF-CARE Condition: Fair Instructions: Constipation (ED), High Fiber Diet (ED), Fleet Enema (ED), Urinary Tract Infection in Women (ED) Additional Instructions: Continue with fluids. Take Bactrim for the urinary tract infection. Use the magnesium citrate to help bowel movement to remove the gas and barium from yesterday's colonoscopy. Return emergency room if pain starts, follow-up family doctor as needed. Prescriptions: Sulfamethox-Tmp 800-160Mg [Bactrim DS 800-160 mg] 1 each PO Q12HR #20 tab Is patient prescribed a controlled substance at d/c from ED?: No Referrals: Rob Arias MD [Primary Care Provider] - 1-2 days Time of Disposition: 17:49
[2018-02-05 17:12] LABS: Basophils % (A) 0 %; Eosinophils # (A) 0.3 k/uL (0-0.7); Eosinophils % (A) 4 %; HCT 44.5 % (34.0-46.0); HGB 14.8 gm/dL (11.4-16.0); Lymphocytes # (A) 1.9 k/uL (1.0-4.8); Lymphocytes % (A) 31 %; MCH 29.1 pg (25.0-35.0); MCHC 33.2 g/dL (31.0-37.0); MCV 87.5 fL (80.0-100.0); Monocytes # (A) 0.4 k/uL (0-1.0); Monocytes % (A) 7 %; Neutrophils # (A) 3.3 k/uL (1.3-7.7); Neutrophils % (A) 55 %; Platelet Count 212 k/uL (150-450); RBC 5.08 m/uL (3.80-5.40); RDW 12.7 % (11.5-15.5)
--- NOTE | 2018-02-05 17:14 | XR ---
EXAMINATION TYPE: XR abdomen 2V DATE OF EXAM: 02/05/2018 COMPARISON: 01/14/2016 HISTORY: Abdominal pain TECHNIQUE: Supine and upright views. FINDINGS: There is barium in the large bowel. There is no sign of intestinal obstruction or pneumoperitoneum. Fecal pattern is normal. There is mild lumbar dextroscoliosis. Lung bases are clear. There are surgic al clips in the right upper quadrant. IMPRESSION: Nonacute abdomen.
[2018-02-05 17:18] LABS: Appearance,Urine Clear (Clear); Bacteria,Urine Rare /hpf; Bilirubin,Urine Negative (Negative); Blood,Urine Negative (Negative); Color,Urine Light Yellow; Glucose,Urine (UA) Negative (Negative); Ketones,Urine Negative (Negative); Leukocyte Esterase,Urine Large (Negative); Nitrite,Urine Negative (Negative); Protein,Urine Negative (Negative); RBC,Urine 1 /hpf (0-5); Specific Gravity,Urine 1.005 (1.001-1.035); Squamous Epithelial Cell,Urine <1 /hpf (0-4); Urobilinogen,Urine <2.0 mg/dL (<2.0); WBC,Urine 22 /hpf (0-5)
[2018-02-05 17:24] LABS: Albumin 4.4 g/dL (3.5-5.0); Calcium 9.8 mg/dL (8.4-10.2); Potassium 4.2 mmol/L (3.5-5.1); Total Bilirubin 0.4 mg/dL (0.2-1.3); Total Protein 7.3 g/dL (6.3-8.2)
[2018-02-05] MEDS ORDERED: SULFAMETH-TMP DS STARTER PACK 2 TAB BTL PO STA (17:42)
[2018-02-05] MEDS ORDERED: MAGNESIUM CITRATE 296 ML BOTTLE PO ONE (17:43)
[2018-02-05 18:18] VITALS: BP 160/67; PULSE 76; RESP 16
== END 2018-02-05 18:17 | disposition home or self-care (01) ==
LOC: EC 15:40
DX: K59.01 Slow transit constipation (principal); N39.0 Urinary tract infection, site not specified; M41.86 Other forms of scoliosis, lumbar region; E03.9 Hypothyroidism, unspecified; H91.90 Unspecified hearing loss, unspecified ear; Z85.3 Personal history of malignant neoplasm of breast; Z85.820 Personal history of malignant melanoma of skin; Z86.14 Personal history of Methicillin resistant Staphylococcus aureus infection; Z79.899 Other long term (current) drug therapy; Z91.041 Radiographic dye allergy status; Z88.7 Allergy status to serum and vaccine; Z88.6 Allergy status to analgesic agent; Z88.8 Allergy status to other drugs, medicaments and biological substances; Z90.49 Acquired absence of other specified parts of digestive tract; Z90.710 Acquired absence of both cervix and uterus; Z98.890 Other specified postprocedural states
CPT/HCPCS: 36415; 74019; 80053; 81001; 82150; 83690; 85025; 87086; 99284

== ENCOUNTER → 2018-05-14 | Outpatient (CLI) | payer MEDICARE ==
[2018-05-14 16:35] LABS: HCT 44.3 % (34.0-46.0); HGB 14.6 gm/dL (11.4-16.0); MCH 29.5 pg (25.0-35.0); MCHC 32.9 g/dL (31.0-37.0); MCV 89.6 fL (80.0-100.0); Mean Platelet Volume 6.8; Platelet Count 175 k/uL (150-450); RBC 4.94 m/uL (3.80-5.40); RDW 13.1 % (11.5-15.5); WBC 5.2 k/uL (3.8-10.6)
== END | disposition home or self-care (01) ==
LOC: LABPAT 15:50
PROVIDERS: ATTEND Anesthesiology
DX: Z01.812 Encounter for preprocedural laboratory examination (principal)
CPT/HCPCS: 85027

== ENCOUNTER 2018-05-20 07:33 | Inpatient (IN) | payer MEDICARE ==
[2018-05-12 12:07] VITALS: BMI 21.6
[~2018-05-20 07:33] MED LIST changes: +DEXAMETHASONE SOD PHOSPHATE 10 MG/ML 1 ML VIAL IV ONE; +HEPARIN SODIUM,PORCINE 5,000 UNIT/ML 1 ML VIAL SQ ONE; -LACTATED RINGERS 1,000 ML IV SCH; +MIDAZOLAM 2 MG/2 ML VIAL IV PRN; +ONDANSETRON 4 MG/2 ML VIAL IVP ONE; +ceFAZolin IN SWFI 2 GM/20 ML SYRINGE IVP ONE; +fentaNYL (PF) 50 MCG/ML 2 ML AMP IV PRN; +metroNIDAZOLE-NS PMX 500 MG in SALINE 1 100ML.BAG IVPB ONE
[2018-05-20] MEDS: LACTATED RINGERS 1,000 ML IV SCH (08:04)
--- NOTE | 2018-05-20 09:09 | P.GSHP ---
History of Present Illness H&P Date: 05/20/18 CHIEF COMPLAINT: Paraesophageal hiatal hernia with gastroesophageal reflux disease. HISTORY OF PRESENT ILLNESS: The patient is a 83-year-old female who presents with paraesophageal hiatal hernia. She has completed an esophageal manometry including upper endoscopy workup. Now she presents for surgical intervention. PAST MEDICAL HISTORY: Please see list. PAST SURGICAL HISTORY: Please see list. MEDICATIONS: Please see list. ALLERGIES: Please see list. SOCIAL HISTORY: No illicit drug use FAMILY HISTORY: No reports of Crohn disease or ulcerative colitis. REVIEW OF ORGAN SYSTEMS: CONSTITUTIONAL: No reports of fevers or chills. GI: Denies any blood in stools or constipation. PHYSICAL EXAM: VITAL SIGNS: Stable GENERAL: Well-developed pleasant and in no acute distress. HEENT: No scleral icterus. Extraocular movements grossly intact. Moist buccal mucosa. NECK: Supple without lymphadenopathy. CHEST: Unlabored respirations. Equal bilateral excursions. CARDIOVASCULAR: Regular rate and rhythm. Distal 2+ pulses. ABDOMEN: Soft, nondistended. No peritoneal signs. MUSCULOSKELETAL: No clubbing, cyanosis, or edema. SKIN: Well-perfused. Good skin turgor. MANOMETRY: Shows no evidence of achalasia or scleroderma. ASSESSMENT: 1. Diaphragmatic paraesophageal hiatal hernia with severe gastroesophageal reflux disease. PLAN: 1. Recommend proceeding with a robotic paraesophageal hiatal hernia with possible mesh. 2. Benefits and risks of surgical intervention was discussed including possibility of open technique. 3. Inpatient hospitalization recommended of 2 nights 4. DVT prophylaxis. 5. Antibiotic prophylaxis. 6. She has also completed a very low caloric high-protein diet to address underlying hepatomegaly. Past Medical History Past Medical History: Atrial Fibrillation, Cancer, COPD, GERD/Reflux, Hearing Disorder / Deafness, Hyperlipidemia, Musculoskeletal Disorder, Osteoarthritis ( OA), Pneumonia, Thyroid Disorder Additional Past Medical History / Comment(s): Constipation, bowel adhesions. Hx bowel obstruction, right breast cancer-1997 no chemo or radiation, melanoma face 2014, osteoporosis, pneumonia Aug 2016. History of Any Multi-Drug Resistant Organisms: MRSA Date of last positivie culture/infection: 2010? MDRO Source:: post surgical wound from bowel resection Past Surgical History: Appendectomy, Bowel Resection, Breast Surgery, Cholecystectomy, Hysterectomy Additional Past Surgical History / Comment(s): Bilateral cataracts, right mastectomy. Past Anesthesia/Blood Transfusion Reactions: No Reported Reaction Past Psychological History: No Psychological Hx Reported Smoking Status: Never smoker Past Alcohol Use History: None Reported Past Drug Use History: None Reported - Past Family History Sister(s) Family Medical History: CVA/TIA Son(s) Additional Family Medical History / Comment(s): Congential heart problem. Daughter(s) Family Medical History: Cancer Mother Family Medical History: Cancer Additional Family Medical History / Comment(s): Stomach cancer Father Family Medical History: CVA/TIA Medications and Allergies Home Medications Medication Instructions Recorded Confirmed Type Cholecalciferol [Vitamin D3] 2,000 unit PO DAILY 12/14/14 05/20/18 History Cyanocobalamin [Vitamin B-12] 1,000 mcg PO DAILY 12/14/14 05/12/18 History Ubidecarenone [Co Q-10] 100 mg PO DAILY 12/14/14 05/20/18 History Levothyroxine Sodium [Synthroid] 88 mcg PO QAM 04/28/17 05/20/18 History Acetaminophen [Tylenol] 500 mg PO Q4-6H PRN 02/02/18 05/20/18 History L.acidoph,Paracasei, B.lactis 1 each PO DAILY 05/12/18 05/12/18 History [Probiotic] Stool Softener 1 tab PO DAILY 05/12/18 05/20/18 History Allergies Allergy/AdvReac Type Severity Reaction Status Date / Time Iodinated Contrast- Oral and Allergy Anaphylaxis Verified 05/12/18 12:20 IV Dye [Iodinated Contrast Media - IV Dye] atorvastatin calcium AdvReac Nausea Verified 05/12/18 12:20 [From Lipitor] celecoxib [From Celebrex] AdvReac Nausea Verified 05/12/18 12:20 influenza virus vaccine, AdvReac Nausea & Verified 05/12/18 12:20 specific Vomiting & [influenza virus Diarrhea,high vacc,specific] fever Surgical - Exam Vital Signs Temp Pulse Resp BP Pulse Ox 97.3 F L 86 18 151/66 94 L 05/20/18 07:54 05/20/18 07:54 05/20/18 07:54 05/20/18 07:54 05/20/18 07:54
[2018-05-20] MEDS ORDERED: SUCCINYLCHOLINE CHLORIDE 100 MG/5 ML SYR IV ONE (09:36)
[2018-05-20] MEDS ORDERED: GLYCOPYRROLATE 0.2 MG/ML 2 ML VIAL ONE (09:36)
[2018-05-20] MEDS ORDERED: LIDOCAINE 1% INJ 10MG/ML (20 ML MDV) ONE (09:36)
[2018-05-20] MEDS ORDERED: fentaNYL (PF) 50 MCG/ML 2 ML AMP ONE (09:36)
[2018-05-20] MEDS ORDERED: VECURONIUM 10 MG VIAL IV ONE (09:36)
[2018-05-20] MEDS ORDERED: NEOSTIGMINE 1 MG/ML 10 ML VIAL ONE (09:36)
[2018-05-20] MEDS ORDERED: PROPOFOL 10 MG/ML 20 ML VIAL IV ONE (09:36)
[2018-05-20] MEDS ORDERED: PHENYLEPHRINE-0.9% NACL SYG 1 MG/10 ML SYRINGE ONE (09:36)
[2018-05-20] MEDS ORDERED: BUPIVACAIN-EPI 0.25%-1:200,000 30 ML VIAL SQ ONE (10:03)
[2018-05-20] MEDS ORDERED: LACTATED RINGERS 1,000 ML IV ONE (11:00)
[2018-05-20] MEDS ORDERED: ACETAMINOPHEN IV (For NPO) 1,000 MG in EMPTY BAG 1 BAG IVPB ONE (12:00)
[2018-05-20] MEDS ORDERED: HYDROcodone/APAP 15 ML SOLUTION PO PRN (12:00)
[2018-05-20] MEDS: ALBUTEROL NEBULIZED 2.5 MG/3 ML INHALATION SCH ×3 (12:00→19:11)
[2018-05-20] MEDS ORDERED: NALOXONE 0.4 MG/ML 1 ML VIAL IV PRN (12:00)
--- NOTE | 2018-05-20 12:00 | P.OP ---
Description of Procedure: DESCRIPTION OF PROCEDURE(S): SURGEON: JONY THOMAS MD PREOPERATIVE DIAGNOSES: 1. Gastroesophageal reflux disease. 2. Paraesophageal hiatal hernia, midline. 3. Presbyesophagus 4. Dysphagia 5. Hypothyroidism 6. Atrial fibrillation 7. History of breast cancer 8. History of melanoma 9. History of multiple abdominal adhesions POSTOPERATIVE DIAGNOSES: 1. Gastroesophageal reflux disease. 2. 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 Presbyesophagus 4. Dysphagia 5. Hypothyroidism 6. Atrial fibrillation 7. History of breast cancer 8. History of melanoma 9. History of multiple abdominal adhesions 10. Moderate peritoneal adhesions lower abdomen and pelvis 11. Mediastinal mass 3 cm 12. Gastritis OPERATION: 1. Robotic-assisted da Tayla Xi laparoscopic repair of paraesophageal hiatal hernia, 8 x 7 cm, with [place] Biopatch A 8 x 8 cm. 2. Intraoperative esophagogastroduodenoscopy with cold biopsy forceps of the antrum 3. Placement of esophageal 56-Malay bougie ANESTHESIA: General with local anesthetic. ESTIMATED BLOOD LOSS: 5 mL SPECIMENS REMOVED: 1. Mediastinal mass 3 cm at phrenoesophageal ligament 2. Antrum biopsies upper endoscopy COMPLICATIONS: None. FINDINGS: 1. Large midline paraesophageal hiatal hernia 7 x 8 cm requiring moderate dissection and mediastinum 2. Gastritis with biopsies obtained of the antrum 3. Lymphadenopathy along the perigastric phrenoesophageal ligament INDICATIONS: The patient is a 83-year-old male who presents with regurgitation, gastroesophageal reflux disease poorly controlled despite medications, and a symptomatic diaphragmatic hiatal hernia. Preoperative workup including upper endoscopy demonstrated a Hill grade 4 lower esophageal valve. She completed an esophageal manometry. Given the severity of his symptoms, she had elected for surgical intervention. Benefits and risks including bleeding, infection, recurrence, dysphagia, injury to the lung, need for further surgery was described at length. Informed consent was obtained. DESCRIPTION: The patient was brought into the operating room and placed in supine position. Preoperatively she had received heparin subcutaneously for DVT prophylaxis. After general induction, the abdomen was prepped and draped in standard sterile fashion. The patient had previously voided prior to coming to the operating room. [place] draping was placed along the abdomen. A timeout protocol was confirmed with the surgical team, for which the patient's name, procedure to be performed including DVT prophylaxis with bilateral SCDs, and preoperative antibiotics were also confirmed. A robotic da Tayla Xi system was prepped and primed. At 12 cm from the xiphoid to just below the umbilicus, proposed port sites were marked with indelible marker along the left axillary line, left mid-clavicular line with each ports were marked 10 cm from each other. A 5 mm 0 degrees laparoscopic trocar entry was performed along the left upper quadrant. The abdomen was insufflated to 15 mmHg pressure she tolerated well. Diagnostic laparoscopy demonstrated no injury to bowel, viscera, or mesentery. No injury had occurred to the small bowel or viscera. Moderate adhesions along the lower abdomen and epigastrium were identified where ports were readjusted at 10 cm distal to the xiphoid. Next, one 8 mm robotic port was placed along the right upper abdomen. An 8-mm port was were placed along the left lateral abdominal wall. The camera 8-mm port was maintained along the epigastrium via the hernia defect. Another 12 mm port was placed along the left upper abdominal wall after exchanging the 5 mm port. Please note that the ports were placed at least 20 cm away from the target anatomy. Care was taken to check that each robotic arm were safely away from collision with the bed or the patient. At the epigastrium, a median sized Herbert liver retractor was placed under direct visualization with the Iron [employer] For [employer] Adults placed under the right shoulder of the patient. All robotic arms were used. The patient was repositioned in reverse Trendelenburg position at 14-degrees after lowering the bed. The robot was docked above the right side of the patient. Using a grasper for arm 3, a grasper for arm 1, including vessel sealer for arm 2, the robotic system was docked and primed as described. Instruments were interchanged by the curatorial assistant. I had sat at the console. The gastrohepatic ligament was cleaved using a vessel sealer. Next, the phrenoesophageal ligament was mobilized and the distal esophagus was mobilized circumferentially. The left and right crura was identified. An midline hiatal hernia and sac was found incarcerated into the mediastinum. A separate mediastinal lesion 3 x 2 cm was found along the external surface of the distal esophagus and resected. Circumferentially, the hernia sac was excised and brought into the peritoneal cavity. Moderate dissection into the mediastinum was performed to release the esophagus into the abdominal cavity. Care was taken to avoid any gastrotomy. The measured defect was consistent with 8 cm axial length and 7 cm in width. After dissection, the distal esophagus of 3 cm was brought into the abdominal cavity. Once the hiatus and crura was dissected, 2-0 VLOC suture was placed to reapproximate the diaphragmatic hiatus posteriorly. To buttress the repair, a [place] Biopatch A was prepared along the back table and cut in half of a austin-hole fashion as to reinforce the repair as an underlay. The mesh was placed along the crural repair and tagged using horizontal mattress sutures using 2-0 VLOC. I went to the head of the bed to perform intraoperative esophagogastroduodenoscopy and placement of a 56Fr bougie. The patient has history of presbyesophagus including mild esophageal dysmotility and a 56-Malay bougie was placed under direct visualization. The bougie was placed for 1 minute and then removed. An Olympus gastroscope was passed through posterior oropharynx. Erosive esophagitis LA grade A was confirmed. The stomach was entered. Retroflexion of the scope confirmed a Hill grade 2 lower esophageal valve. The stomach had been desufflated. No evidence of leaks were found of the esophagus or stomach. Gastritis was identified along the antrum with cold biopsy forceps obtained. The squamocolumnar junction and hiatus was placed at 40 cm from the incisors. Minimal bleeding was found along the GE junction without full-thickness defect. The GI tract with desufflated This concluded the endoscopic portion of the case. The robot was undocked from the patient. I re-scrubbed into the case. All instruments and pneumoperitoneum and specimens were evacuated from the abdominal cavity. Incisions were reapproximated using 4-0 Monocryl in an interrupted subcuticular fashion. Liquid glue was applied to the skin. Local anesthetic was infiltrated in all wounds for postop analgesia. Multiple intra-abdominal films were obtained. At the end of the procedure, needle, sponge, and instrument count was verified correct by the surgical assistant. The patient had tolerated the procedure well and was taken to the postanesthesia unit in stable condition. Intraoperative films were reviewed with the patient's family who was pleased with the level of care. Console time 44 minutes Plan - Discharge Summary Discharge Rx Participant: Yes New Discharge Prescriptions: No Action Ubidecarenone [Co Q-10] 100 mg PO DAILY Cyanocobalamin [Vitamin B-12] 1,000 mcg PO DAILY Cholecalciferol [Vitamin D3] 2,000 unit PO DAILY Levothyroxine Sodium [Synthroid] 88 mcg PO QAM Acetaminophen [Tylenol] 500 mg PO Q4-6H PRN PRN Reason: Pain L.acidoph,Paracasei, B.lactis [Probiotic] 1 each PO DAILY Stool Softener 1 tab PO DAILY Discharge Medication List Cholecalciferol [Vitamin D3] 2,000 unit PO DAILY 12/14/14 [History] Cyanocobalamin [Vitamin B-12] 1,000 mcg PO DAILY 12/14/14 [History] Ubidecarenone [Co Q-10] 100 mg PO DAILY 12/14/14 [History] Levothyroxine Sodium [Synthroid] 88 mcg PO QAM 04/28/17 [History] Acetaminophen [Tylenol] 500 mg PO Q4-6H PRN 02/02/18 [History] L.acidoph,Paracasei, B.lactis [Probiotic] 1 each PO DAILY 05/12/18 [History] Stool Softener 1 tab PO DAILY 05/12/18 [History]
[2018-05-20] MEDS: HYDROmorphone 1 MG/ML 1 ML SYRINGE IVP ONE ×2 (12:11→12:15)
[2018-05-20] MEDS ORDERED: MEPERIDINE 50 MG/ML SYRINGE IVP ONE (12:21)
[2018-05-20] MEDS: HYOSCYAMINE ORAL DROPS 1.875 MG/15 ML BOTTLE PO SCH ×3 (13:14→23:07)
[2018-05-20] MEDS: SIMETHICONE 40 MG/0.6 ML DROPS 2,000 MG/30 ML BOTTLE PO SCH ×3 (13:14→23:07)
[2018-05-20] MEDS: 0.9% NACL WITH KCL 20 MEQ/L 1,000 ML IV SCH ×2 (13:37→23:07)
[2018-05-20] MEDS: AMPICILLIN-SULBACTAM 3 GM in SODIUM CHLORIDE 0.9% 100 ML IVPB SCH ×2 (13:38→17:38)
[2018-05-20] MEDS: ONDANSETRON 4 MG/2 ML VIAL IVP SCH ×3 (13:38→23:07)
[2018-05-20] MEDS: DEXAMETHASONE SOD PHOSPHATE 4 MG/ML 1 ML VIAL IV SCH ×3 (13:41→23:07)
[2018-05-20] MEDS: HYDROmorphone 1 MG/ML 1 ML SYRINGE IVP PRN ×2 (13:55→17:39)
[2018-05-21] MEDS: HYDROmorphone 1 MG/ML 1 ML SYRINGE IVP PRN (02:47)
[2018-05-21] MEDS: DEXAMETHASONE SOD PHOSPHATE 4 MG/ML 1 ML VIAL IV SCH ×2 (05:10→12:09)
[2018-05-21] MEDS: SIMETHICONE 40 MG/0.6 ML DROPS 2,000 MG/30 ML BOTTLE PO SCH ×2 (05:10→12:09)
[2018-05-21] MEDS: HYOSCYAMINE ORAL DROPS 1.875 MG/15 ML BOTTLE PO SCH ×2 (05:10→12:10)
[2018-05-21] MEDS: ONDANSETRON 4 MG/2 ML VIAL IVP SCH ×2 (05:11→12:09)
[2018-05-21] MEDS: LACTATED RINGERS 1,000 ML IV SCH (05:43)
[2018-05-21] MEDS ORDERED: LEVOTHYROXINE 88 MCG TAB PO SCH (06:30)
[2018-05-21] MEDS ORDERED: 0.9% NACL WITH KCL 20 MEQ/L 1,000 ML IV SCH (08:00)
[2018-05-21 08:32] LABS: Basophils % (A) 0 %; Eosinophils # (A) 0.1 k/uL (0-0.7); Eosinophils % (A) 1 %; HCT 35.2 % (34.0-46.0); HGB 11.7 gm/dL (11.4-16.0); Lymphocytes # (A) 0.6 k/uL (1.0-4.8); Lymphocytes % (A) 8 %; MCH 29.3 pg (25.0-35.0); MCHC 33.1 g/dL (31.0-37.0); MCV 88.6 fL (80.0-100.0); Mean Platelet Volume 7.3; Monocytes # (A) 0.2 k/uL (0-1.0); Monocytes % (A) 3 %; Neutrophils # (A) 6.3 k/uL (1.3-7.7); Neutrophils % (A) 88 %; Platelet Count 165 k/uL (150-450); RBC 3.98 m/uL (3.80-5.40); WBC 7.2 k/uL (3.8-10.6)
[2018-05-21 08:49] LABS: Magnesium 1.5 mg/dL (1.6-2.3); Phosphorus 3.2 mg/dL (2.5-4.5); Potassium 4.7 mmol/L (3.5-5.1)
[2018-05-21] MEDS: ALBUTEROL NEBULIZED 2.5 MG/3 ML INHALATION SCH ×3 (08:57→15:20)
[2018-05-21] MEDS ORDERED: PANTOPRAZOLE 40 MG/10 ML VIAL IV SCH (09:00)
[2018-05-21] MEDS ORDERED: ENOXAPARIN 30 MG/0.3 ML SYRINGE SQ SCH (09:00)
[2018-05-21] MEDS: MAGNESIUM SULFATE-D5W PMX 1 GM in DEXTROSE/WATER 1 100ML.BAG IVPB SCH ×4 (10:05→14:28)
--- NOTE | 2018-05-21 10:10 | FL ---
EXAMINATION TYPE: FL UGI DATE OF EXAM: 05/21/2018 LIMITED UGI-ESOPHAGRAM: CLINICAL HISTORY: Hiatal hernia and reflux status post Avery fundoplication surgery one day earlier. Comparison:CT abdomen pelvis April 28, 2017. Esophagram May 21, 2016 TECHNIQUE: Limited esophagram is performed utilizing 20 oz of thin liquid barium. A total of 54 seco nds of fluoroscopic time was utilized during procedure. 24 spot images are saved. FINDINGS: The patient swallowed contrast without difficulty or delay. Esophageal peristalsis and mo tility are satisfactory. There is good flow of contrast along the diaphragmatic hiatus into the stoma ch on initial images, there is mild delay on subsequent swallows. There is no evidence of contrast ex travasation to suggest leak. No persistent hiatal hernia is seen after surgery. Patient remains asymp tomatic. Cholecystectomy clips are incidentally noted. IMPRESSION: No evidence of leak or significant obstruction status post Avery fundoplication surgery yesterday.
--- NOTE | 2018-05-21 13:52 | P.PN ---
Subjective Progress Note Date: 05/21/18 CHIEF COMPLAINT: Status post paraesophageal hiatal hernia repair HISTORY OF PRESENT ILLNESS: The patient is a 83-year-old female status post repair of large hiatal hernia. She is tolerating liquids. Esophagram was within normal limits. She reports mild abdominal gas bloat following drinking the esophagram contrast. Family is at bedside. She has baseline history of chronic constipation. PHYSICAL EXAM: VITAL SIGNS: Vital Signs Temp 97.9 F 05/21/18 07:00 Pulse 78 05/21/18 11:47 Resp 18 05/21/18 08:00 BP 94/55 05/21/18 07:00 Pulse Ox 96 05/21/18 07:00 Intake & Output 05/20/18 05/21/18 05/21/18 18:59 06:59 18:59 Intake Total 1800 Output Total 355 200 Balance 1445 -200 Weight 58.967 kg 58.967 kg 58.967 kg Intake: IV 1800 Output: Urine 350 200 Estimated Blood Loss 5 Other: Voiding Method Toilet Toilet # Voids 3 GENERAL: Well-developed in no acute distress. HEENT: No sclera icterus. Extraocular movements grossly intact. Moist buccal mucosa. Head is atraumatic, normocephalic. Hears conversational speech. No nasal drainage. NECK: Supple without lymphadenopathy. CHEST: Non-labored respirations and equal bilateral excursions. CARDIOVASCULAR: Regular rate. Regular rhythm ABDOMEN: Soft. Minimally distended. Nontender. MUSCULOSKELETAL: No clubbing, cyanosis or edema. NEUROLOGIC: No focal or lateralizing signs. Cranial nerves II through XII grossly intact. PSYCH: Alert and oriented to person, place and time. SKIN: Well perfused. Good skin turgor. LABS: Reviewed ASSESSMENT: 1. Paraesophageal hiatal hernia symptomatic 2. Low magnesium level PLAN: 1. Recommend correction of low magnesium level 2. Laxative described for bowel movement 3. Post-[place] diet reviewed in detail. Objective - Vital Signs Vital signs: Vital Signs Temp 97.9 F 05/21/18 07:00 Pulse 78 05/21/18 11:47 Resp 18 05/21/18 08:00 BP 94/55 05/21/18 07:00 Pulse Ox 96 05/21/18 07:00 Intake & Output 05/20/18 05/21/18 05/21/18 18:59 06:59 18:59 Intake Total 1800 Output Total 355 200 Balance 1445 -200 Weight 58.967 kg 58.967 kg 58.967 kg Intake: IV 1800 Output: Urine 350 200 Estimated Blood Loss 5 Other: Voiding Method Toilet Toilet # Voids 3 - Labs CBC & Chem 7: 05/21/18 07:53 05/21/18 07:53 Labs: Abnormal Lab Results - Last 24 Hours (Table) 05/21/18 05/21/18 Range/Units 07:53 07:53 Lymphocytes # 0.6 L (1.0-4.8) k/uL Sodium 136 L (137-145) mmol/L Carbon Dioxide 20 L (22-30) mmol/L Magnesium 1.5 L (1.6-2.3) mg/dL
[2018-05-21 15:44] VITALS: BP 105/66; PULSE 100; RESP 16; TEMP 97.5
--- NOTE | 2018-05-24 19:03 | P.DS ---
Providers Date of admission: 05/21/18 13:46 Expected date of discharge: 05/21/18 Attending physician: Kailyn Pineda Primary care physician: Rob Arias - Discharge Diagnosis(es) (1) Paraesophageal hernia with obstruction but no gangrene Status: Acute (2) Abdominal pain Status: Acute (3) Hiatal hernia Status: Acute (4) History of colonic diverticulitis Status: Acute (5) S/P hernia repair Status: Acute Hospital Course: POSTOPERATIVE DIAGNOSES: 1. Gastroesophageal reflux disease. 2. 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 Presbyesophagus 4. Dysphagia 5. Hypothyroidism 6. Atrial fibrillation 7. History of breast cancer 8. History of melanoma 9. History of multiple abdominal adhesions 10. Moderate peritoneal adhesions lower abdomen and pelvis 11. Mediastinal mass 3 cm 12. Gastritis COURSE: The patient is an 83-year-old female who reports underlying dysphagia including severe gastroesophageal reflux disease. She underwent a paraesophageal hiatal hernia demonstrating a large hiatal hernia. Esophagram postoperatively was unremarkable for obstruction or leaks. Post hiatal hernia diet was reviewed in detail which demonstrated understanding. Prior to discharge she was tolerating diet. Pertinent Studies: Esophagram demonstrates no evidence of obstruction or leak Procedures: OPERATION: 1. Robotic-assisted da Tayla Xi laparoscopic repair of paraesophageal hiatal hernia, 8 x 7 cm, with Dalhart Biopatch A 8 x 8 cm. 2. Intraoperative esophagogastroduodenoscopy with cold biopsy forceps of the antrum 3. Placement of esophageal 56-[place] bougie ANESTHESIA: General with local anesthetic. ESTIMATED BLOOD LOSS: 5 mL SPECIMENS REMOVED: 1. Mediastinal mass 3 cm at phrenoesophageal ligament 2. Antrum biopsies upper endoscopy COMPLICATIONS: None. FINDINGS: 1. Large midline paraesophageal hiatal hernia 7 x 8 cm requiring moderate dissection and mediastinum 2. Gastritis with biopsies obtained of the antrum 3. Lymphadenopathy along the perigastric phrenoesophageal ligament Patient Condition at Discharge: Stable Plan - Discharge Summary Discharge Rx Participant: Yes New Discharge Prescriptions: New Ondansetron HCl [Zofran] 4 mg PO Q8HR PRN #10 tablet PRN Reason: Nausea Simethicone 40 mg/0.6 ml Drops [Mylicon Drops] 40 mg PO Q6HR PRN #30 ml PRN Reason: Abdominal Distention Continue Ubidecarenone [Co Q-10] 100 mg PO DAILY Levothyroxine Sodium [Synthroid] 88 mcg PO QAM Acetaminophen [Tylenol] 500 mg PO Q4-6H PRN PRN Reason: Pain L.acidoph,Paracasei, B.lactis [Probiotic] 1 cap PO DAILY Stool Softener 1 tab PO DAILY Discontinued Cyanocobalamin [Vitamin B-12] 1,000 mcg PO DAILY Cholecalciferol [Vitamin D3] 2,000 unit PO DAILY Discharge Medication List Ubidecarenone [Co Q-10] 100 mg PO DAILY 12/14/14 [History] Levothyroxine Sodium [Synthroid] 88 mcg PO QAM 04/28/17 [History] Acetaminophen [Tylenol] 500 mg PO Q4-6H PRN 02/02/18 [History] L.acidoph,Paracasei, B.lactis [Probiotic] 1 cap PO DAILY 05/12/18 [History] Stool Softener 1 tab PO DAILY 05/12/18 [History] Ondansetron HCl [Zofran] 4 mg PO Q8HR PRN #10 tablet 05/21/18 [Rx] Simethicone 40 mg/0.6 ml Drops [Mylicon Drops] 40 mg PO Q6HR PRN #30 ml [Rx] Follow up Appointment(s)/Referral(s): Kailyn Pineda MD [STAFF PHYSICIAN] - 05/25/18 10:20 am Patient Instructions/Handouts: Simethicone (By mouth), Ondansetron (By mouth), Laparoscopic Hiatal Hernia Repair (DC) Activity/Diet/Wound Care/Special Instructions: No lifting for 4 pounds in 4 weeks. May shower. No bathtub soaks. Liquid diet only. No straws or carbonated beverages. Open capsules or crush medications for anything larger than a tic tac Discharge Disposition: HOME SELF-CARE
== END 2018-05-21 16:00 | disposition home or self-care (01) | DRG 327 ==
LOC: OR 07:33 → EDSTATUS 11:30 → 4SSUR 11:45 → OR 05-21 16:20
PROVIDERS: ADMIT Surgery Plastic and Reconstructive Surgery; ATTEND Surgery Plastic and Reconstructive Surgery
PROC: 8E0W0CZ Robotic Assisted Procedure of Trunk Region, Open Approach (ICD-10-PCS; principal; 2018-05-20 09:10)
PROC: 0BUT0JZ Supplement Diaphragm with Synthetic Substitute, Open Approach (ICD-10-PCS; principal; 2018-05-20 09:10)
PROC: 0DD78ZX Extraction of Stomach, Pylorus, Via Natural or Artificial Opening Endoscopic, Diagnostic (ICD-10-PCS; principal; 2018-05-20 09:10)
PROC: 0DB50ZX Excision of Esophagus, Open Approach, Diagnostic (ICD-10-PCS; principal; 2018-05-20 09:10)
DX: K44.0 Diaphragmatic hernia with obstruction, without gangrene (principal); K22.10 Ulcer of esophagus without bleeding; E03.9 Hypothyroidism, unspecified; E78.5 Hyperlipidemia, unspecified; H91.90 Unspecified hearing loss, unspecified ear; I48.91 Unspecified atrial fibrillation; J44.9 Chronic obstructive pulmonary disease, unspecified; K21.9 Gastro-esophageal reflux disease without esophagitis; K22.4 Dyskinesia of esophagus; K22.8 Other specified diseases of esophagus; K29.70 Gastritis, unspecified, without bleeding; Z80.0 Family history of malignant neoplasm of digestive organs; Z85.3 Personal history of malignant neoplasm of breast; Z85.820 Personal history of malignant melanoma of skin; Z90.11 Acquired absence of right breast and nipple; Z90.710 Acquired absence of both cervix and uterus
CPT/HCPCS: 74240; 80051; 82310; 82565; 83735; 84100; 84520; 85025; 88304; 88305; 93005; 94640

== ENCOUNTER → 2018-06-14 | Outpatient (CLI) | payer MEDICARE ==
--- NOTE | 2018-06-14 11:30 | XR ---
Left shoulder HISTORY: Pain 3 views of the left shoulder correlated to chest x-ray 10/12/2017 There is arthropathy at the acromioclavicular joint. Bone mineralization is reduced. Left lung apex s hows some apical pleural thickening as on prior chest x-ray. Alignment is maintained. Joint spaces wi thin normal limits. The aorta is dense. No fracture or dislocation. IMPRESSION: Acromioclavicular joint arthropathy. Apical pleural thickening. Osteopenia. Shoulder MRI may be of benefit.
== END | disposition home or self-care (01) ==
LOC: RADXRMAIN 10:57
PROVIDERS: ATTEND Physician Assistant
DX: M12.812 Other specific arthropathies, not elsewhere classified, left shoulder (principal); M85.812 Other specified disorders of bone density and structure, left shoulder

== ENCOUNTER → 2018-08-06 | Outpatient (CLI) | payer MEDICARE ==
--- NOTE | 2018-08-06 10:06 | US ---
EXAMINATION TYPE: US axilla LT DATE OF EXAM: 08/06/2018 COMPARISON: NONE CLINICAL HISTORY: R22.9 Localized swelling, mass and lump, unspecifi. Left axilla pain and lump for 2 weeks that is getting larger. History of breast cancer right breast Multiple probable lymph nodes noted left axilla with largest 2 = 2.6 x 1.4 x 1.8cm and 2.6 x 1.2 x 2. 4cm IMPRESSION: Multiple abnormal appearing lymph nodes within the left axilla.
== END ==
LOC: RADUSWWP 09:25
PROVIDERS: ATTEND Family Medicine
DX: R22.2 Localized swelling, mass and lump, trunk (principal)

== ENCOUNTER → 2018-08-12 | Outpatient (CLI) | payer MEDICARE ==
[2018-08-12 09:41] VITALS: BP 137/78; PULSE 95; RESP 18; TEMP 96.2; BMI 22.1
--- NOTE | 2018-08-12 10:49 | P.GSHP ---
History of Present Illness H&P Date: 08/12/18 Chief Complaint: pain left axilla Marsha is an 83-year-old white female who is status post right mastectomy in 1999. The patient was treated with Arimidex for 5 years. The patient has subsequently had skin cancer on her left cheek and nose, as well as ovarian cancer. Both tubes and ovaries were removed as she had already had a hysterectomy. She did not have any chemotherapy. The patient approximately 5 weeks ago lifted a 20 pound container of salt. Following that she had pain in her left upper extremity. She saw physician and had x-rays done, she was told she did not have any fracture and piriformis sling. The pain abated following this. Approximately 2 weeks ago patient began having increased pain again in the left axilla and upper outer quadrant of the left breast. The patient now complains of a large swelling under her left arm. The patient complains of chills the past 2 days. The patient has night sweats for the past 6 months. The patient does not know if she has any recent fever. She also has a lump in the upper outer quadrant of her left breast. She states that she is noticed it approximately 2 weeks ago. The patient has no history of any infection the breast. She has no history of any recent trauma to the breast. The patient had a CBC performed on 130 119. White count was 9, hemoglobin 13.2. Patient's TSH 3.85 and T4 1 0.43 both within normal limits. The patient underwent an ultrasound of the left axilla and 2118. This revealed multiple palpable lymph nodes in the left axilla with the largest being 2.6 x 1.4. Impression multiple abnormal-appearing lymph nodes within the left axilla Family history: 1. patient: ovarian, skin cancer, breast cancer 2. mother: stomach 3. three sisters: breast cancer, youngest in her 50's 4. brother: lung 5. brother: kidney cancer 6. daughter: colon Hormonal History: menarche: 10 : 5, children 5, breast fed: yes, first born at 16 menopause: hysterectomy at 43; dropped uterus and bleeding BCP: 1 year hormones: premarin 4 years Past surgical history: 1. Appendectomy 2. Hysterectomy 3. Right mastectomy 4. Subsequent bilateral salpingo-oophorectomy 5. facial surgery for cancer took 6 hours 6. Bilateral cataracts 7. hiatal hernia 8. colon resection/diverticuli 9. Second bowel resection/surgery patient had MRSA at that time about 2013 Past medical history: 1. thrush 2. weak/loss of appitite Social history: Smoke: Negative Alcohol: Negative drugs: Negative - Constitutional Constitutional: Reports sweats - EENT Comment: cataract surgery bilateral cloudy vision of the right eye at times Eyes: right blurred vision, denies pain Ears: bilateral: decreased hearing, deny: tinnitus Ears, nose, mouth and throat: Reports headache - Breasts Breasts: bilateral: as per HPI - Cardiovascular Cardiovascular: Reports irregular heart beat, Reports shortness of breath, Denies chest pain - Respiratory Respiratory: Denies cough, Denies 7 - Gastrointestinal Comment: diverticular disease hiatal hernia Gastrointestinal: Reports constipation - Genitourinary (Female) Comment: ovarian cancer - Menstruation Menstruation: Reports post hysterectomy - Musculoskeletal Comment: arthritis - Integumentary Comment: skin cancer - Neurological Neurological: Reports weakness, Denies numbness - Psychiatric Psychiatric: Reports depression, Denies anxiety - Endocrine Endocrine: Reports fatigue, Denies weight change - Hematologic/Lymphatic Comment: none - Allergic/Immunologic Allergic/Immunologic: Reports as per HPI, Reports seasonal allergies Past Medical History Past Medical History: Atrial Fibrillation, Cancer, COPD, GERD/Reflux, Hearing Disorder / Deafness, Hyperlipidemia, Musculoskeletal Disorder, Osteoarthritis ( OA), Pneumonia, Thyroid Disorder Additional Past Medical History / Comment(s): Constipation, bowel adhesions. Hx bowel obstruction, right breast cancer-1997 no chemo or radiation, melanoma face 2014, osteoporosis, pneumonia Aug 2016. History of Any Multi-Drug Resistant Organisms: MRSA Date of last positivie culture/infection: 2010? MDRO Source:: post surgical wound from bowel resection Past Surgical History: Appendectomy, Bowel Resection, Breast Surgery, Cholecystectomy, Hysterectomy Additional Past Surgical History / Comment(s): Bilateral cataracts, right mastectomy. Past Anesthesia/Blood Transfusion Reactions: No Reported Reaction Past Psychological History: No Psychological Hx Reported Smoking Status: Never smoker Past Alcohol Use History: None Reported Past Drug Use History: None Reported - Past Family History Sister(s) Family Medical History: CVA/TIA Son(s) Additional Family Medical History / Comment(s): Congential heart problem. Daughter(s) Family Medical History: Cancer Mother Family Medical History: Cancer Additional Family Medical History / Comment(s): Stomach cancer Father Family Medical History: CVA/TIA Medications and Allergies Home Medications Medication Instructions Recorded Confirmed Type Ubidecarenone [Co Q-10] 88 mg PO DAILY 12/14/14 08/12/18 History Levothyroxine Sodium [Synthroid] 88 mcg PO QAM 04/28/17 08/12/18 History Acetaminophen [Tylenol] 500 mg PO Q4-6H PRN 02/02/18 08/12/18 History L.acidoph,Paracasei, B.lactis 1 cap PO DAILY 05/12/18 08/12/18 History [Probiotic] Stool Softener 3 tab PO DAILY 05/12/18 08/12/18 History Ondansetron HCl [Zofran] 4 mg PO Q8HR PRN #10 tablet 05/21/18 08/12/18 Rx Simethicone 40 mg/0.6 ml Drops 40 mg PO Q6HR PRN #30 ml 05/21/18 08/12/18 Rx [Mylicon Drops] Ascorbic Acid [Vitamin C] 08/12/18 History Cholecalciferol (Vitamin D3) 08/12/18 History [Vitamin D3] Cyanocobalamin (Vitamin B-12) 08/12/18 History [Vitamin B-12] [place]-3 Fatty Acids/Fish Oil [Fish 08/12/18 History Oil 1,000 mg Softgel] Allergies Allergy/AdvReac Type Severity Reaction Status Date / Time Iodinated Contrast- Oral and Allergy Anaphylaxis Verified 08/12/18 09:43 IV Dye [Iodinated Contrast Media - IV Dye] atorvastatin calcium AdvReac Nausea Verified 08/12/18 09:43 [From Lipitor] celecoxib [From Celebrex] AdvReac Nausea Verified 08/12/18 09:43 cephalexin [From Keflex] AdvReac Unknown Unverified 08/12/18 09:43 influenza virus vaccine, AdvReac Nausea & Verified 08/12/18 09:43 specific Vomiting & [influenza virus Diarrhea,high vacc,specific] fever Surgical - Exam Vital Signs Temp Pulse Resp BP 96.2 F L 95 18 137/78 08/12/18 09:28 08/12/18 09:28 08/12/18 09:28 08/12/18 09:28 BMI 22.1 - General cachectic - Eyes PERRL - ENT status post left facial surgery resection from melanoma normal nares - Neck no masses, trachea midline - Respiratory normal respiratory effort, clear to auscultation - Cardiovascular Rhythm: regular Heart Sounds: normal: S1, S2 - Abdomen well healed scar from prior surgery Abdomen: soft - Integumentary well healed scar right neck well healed scar abdomen - Neurologic no disoriented, no combative - Musculoskeletal normal gait - Psychiatric oriented to time, oriented to person, oriented to place, speech is normal, memory intact Breast examination: Right breast: Patient is status post mastectomy chest wall is incision is clean and dry with no evidence of recurrence, right axilla no adenopathy of concern Left breast: Enlarged mass upper outer quadrant area extending to the region of the axilla approximately 5 cm in size there is resting as to whether these are 2 separate masses or if this is contiguous with axillary adenopathy Left axilla: Left axillary mass contiguous with upper outer quadrant breast mass This area is tender to palpation, no other masses of concern noted in the breast Results Ultrasound of left axilla reviewed Assessment and Plan Assessment: Impression: 1. New-onset left axillary and upper outer quadrant left breast Mass. 2. Pain in left breast 3. Night sweats 4. Chills 5. Normal white count on 130 119 6. Status post surgery for ovarian cancer in 7. Status post surgery for diverticular disease 8. Status post surgery for hiatal hernia 9. Melanoma right face 10. Intermittent atrial fibrillation 11. Weakness 12. Asthma 13. Prior history of MRSA Plan: 1. Left breast mammogram 2. Biopsy of left breast and axillary lesions 3. Medical management of medical conditions 4. Patient does not appear to have acute infection at this time we will facilitate biopsies as soon as possible to initiate treatment Dr. Rob Arias
== END | disposition home or self-care (01) ==
LOC: WWCWWP 09:24
PROVIDERS: ATTEND Surgery
DX: Z53.9 Procedure and treatment not carried out, unspecified reason (principal)

== ENCOUNTER → 2018-08-12 | Outpatient (CLI) | payer MEDICARE ==
--- NOTE | 2018-08-12 13:00 | MM ---
Reason for exam: additional evaluation requested from prior study. Last mammogram was performed 2 years and 5 months ago. History: Patient is postmenopausal, has history of ovarian cancer at age 73, has history of breast cancer at age 65, and history of other cancer. Family history of breast cancer in sister at age 50 and breast cancer in sister at age 60. Mastectomy of the right breast, 1999. 2 excisional biopsies of the left breast. Physical Findings: Breast exam performed by Dr. Deras. MG 3D Diag Mammo W/Cad LT CC and MLO view(s) were taken of the left breast. Prior study comparison: March 04, 2016, left breast MG diagnostic mammo LT w CAD. March 02, 2015, left breast MG diagnostic mammo LT w CAD. The breast tissue is heterogeneously dense. This may lower the sensitivity of mammography. No suspicious calcifications are seen. Increased interstitium may reflect CHF. Correlate clinically. No significant new findings when compared with previous films. These results were verbally communicated with the patient and result sheet given to the patient on 08/12/18. ASSESSMENT: Benign, BI-RAD 2 RECOMMENDATION: Follow-up diagnostic mammogram of the left breast in 1 year.
== END | disposition home or self-care (01) ==
LOC: RADMAMWWP 11:15
PROVIDERS: ATTEND Surgery
DX: Z08 Encounter for follow-up examination after completed treatment for malignant neoplasm (principal); Z85.3 Personal history of malignant neoplasm of breast; Z90.11 Acquired absence of right breast and nipple
CPT/HCPCS: 77065; G0279; 77061

== ENCOUNTER 2018-08-18 08:45 | Day surgery (SDC) | payer MEDICARE ==
[2018-08-18 09:19] VITALS: TEMP 98.2
[2018-08-18 10:51] VITALS: BP 128/64; PULSE 84; RESP 16
--- NOTE | 2018-08-18 12:10 | US ---
EXAMINATION TYPE: US FNA first lesion, US biopsy soft tissue/muscle DATE OF EXAM: 08/18/2018 HISTORY: Left axillary mass, adenopathy. FINDINGS: Maximal barrier technique was utilized. The skin overlying a suitable path to the patient' s mass was localized with ultrasound and the left axilla and the overlying skin prepped and draped. Ultrasound was utilized with sterile technique. Lidocaine was used for local anesthesia. 2 passes w ere made with a 25-gauge and 23-gauge needle, specimen submitted to cytology. A skin marina was made wi th a scalpel. An 18-gauge needle was advanced under direct ultrasound guidance and core specimen obt ained of the mass, an additional core was obtained at adjacent lesion. Specimen submitted in formali n to Pathology. Following the procedure, hemostasis achieved and the patient is discharged in stable condition without complication. IMPRESSION:STATUS POST ULTRASOUND GUIDED CORE BIOPSY and fine-needle aspiration OF left axillary MASS as described, PATHOLOGY IS PENDING. THIS PROCEDURE IS PERFORMED BY THE UNDERSIGNED.
== END 2018-08-18 10:40 | disposition home or self-care (01) ==
LOC: RADPROMAIN 08:45
PROVIDERS: ATTEND Surgery
DX: D49.89 Neoplasm of unspecified behavior of other specified sites (principal)
CPT/HCPCS: 10005; 20206; 76942; 88173; 88305; 88341; 88342

== ENCOUNTER → 2018-08-27 | Outpatient (CLI) | payer MEDICARE ==
[2018-08-27 14:40] VITALS: BP 124/69; PULSE 83; RESP 18; TEMP 96.4; BMI 21.6
--- NOTE | 2018-08-27 15:43 | P.GSHP ---
History of Present Illness H&P Date: 08/27/18 Chief Complaint: Left axillary adenopathy Marsha is an 83-year-old white female who is status post right mastectomy in 1999. The patient was treated with Arimidex for 5 years. The patient subsequently had skin cancer on the left cheek and nose as well as ovarian cancer. Both tubes and ovaries removed as she had already had a hysterectomy. She did not have any chemotherapy. The patient several weeks ago this to 20 pound container of salt. Following that she had pain in her left upper extremity. She saw a physician and had x- rays done and was told she did not have any fracture and her arm was placed in a sling. The pain abated following this but several weeks later she began having increasing pain again in the left axilla and upper outer quadrant of the left breast. The patient presented complaining of some swelling under her left arm. The patient complained of chills as well. The patient subsequently underwent a core biopsy of this area which was consistent with findings highly suspicious for diffuse large B-cell lymphoma this was done on 08/18/2018. This was reviewed by pathology in [place]. The results of this were reviewed with Dr. Howard from [facility]. The case was discussed with Dr. Kennedy, from medical oncology and it was recommended by pathology as well as medical oncology that an open biopsy be performed so definitive diagnosis could be obtained. I discussed this with the patient and her granddaughter and of offered them a ultrasound guided repeat core biopsy. The patient wanted more definitive procedure to be performed and has declined repeat ultrasound-guided core biopsy. They understand the risks and benefits associated with an open biopsy including the possibility of bleeding and wished to proceed. Family history: 1. Patient: Ovarian, skin, and breast cancer 2. Mother: Stomach cancer 3. 3 sisters: Breast cancer, youngest in her 50s 4. Brother: Lung cancer 5. Bladder: Kidney cancer 6. Daughter: Colon cancer Hormonal history: Menarche: 10 Pregnancies: 5, and 5 children, breast fed: Yes, firstborn a 16 Menopause: Hysterectomy of 43 secondary to dropped uterus and bleeding Postoperative control pills: 1 year Hormones: Premarin 4 years Past surgical history: 1. Appendectomy 2. Hysterectomy 3. Right mastectomy 4. Subsequent bilateral salpingo-oophorectomy 5. Facial surgery for cancer took 6 hours 6. Bilateral cataract surgery 7. Hiatal hernia 8. Colon resection diverticular disease 9. Second bowel resection/patient had MRSA at that time about 2013 Past medical history: 1./ 2. Weak/loss of appetite Social history: Smoke: Negative Alcohol: Negative Drugs: Negative - Constitutional Constitutional: Reports sweats - EENT Eyes: right blurred vision, denies pain Ears: bilateral: decreased hearing, deny: tinnitus Ears, nose, mouth and throat: Reports headache - Breasts Breasts: bilateral: as per HPI - Cardiovascular Cardiovascular: Reports irregular heart beat, Reports shortness of breath - Respiratory Respiratory: Denies cough, Denies 7 - Gastrointestinal Comment: diverticular disease Gastrointestinal: Reports constipation - Genitourinary (Female) Comment: ovarian cancer - Menstruation Menstruation: Reports post hysterectomy - Musculoskeletal Comment: arthritis - Integumentary Integumentary: Reports as per HPI - Neurological Neurological: Reports weakness - Psychiatric Psychiatric: Reports depression - Endocrine Endocrine: Reports fatigue - Allergic/Immunologic Allergic/Immunologic: Reports seasonal allergies Past Medical History Past Medical History: Atrial Fibrillation, Cancer, COPD, GERD/Reflux, Hearing Disorder / Deafness, Hyperlipidemia, Musculoskeletal Disorder, Osteoarthritis ( OA), Pneumonia, Thyroid Disorder Additional Past Medical History / Comment(s): Constipation, bowel adhesions. Hx bowel obstruction, right breast cancer-1997 no chemo or radiation, melanoma face 2014, osteoporosis, pneumonia Aug 2016. History of Any Multi-Drug Resistant Organisms: MRSA Date of last positivie culture/infection: 2010? MDRO Source:: post surgical wound from bowel resection Past Surgical History: Appendectomy, Bowel Resection, Breast Surgery, Cholecystectomy, Hysterectomy Additional Past Surgical History / Comment(s): Bilateral cataracts, right mastectomy. Past Anesthesia/Blood Transfusion Reactions: No Reported Reaction Past Psychological History: No Psychological Hx Reported Smoking Status: Never smoker Past Alcohol Use History: None Reported Past Drug Use History: None Reported - Past Family History Sister(s) Family Medical History: CVA/TIA Additional Family Medical History / Comment(s): breast Cancer in 3 sisters Son(s) Family Medical History: Thyroid Disorder Additional Family Medical History / Comment(s): Congential heart problem. Daughter(s) Family Medical History: Cancer Additional Family Medical History / Comment(s): colon cancer Mother Family Medical History: Cancer Additional Family Medical History / Comment(s): Stomach cancer Father Family Medical History: CVA/TIA Medications and Allergies Home Medications Medication Instructions Recorded Confirmed Type Ubidecarenone [Co Q-10] 88 mg PO DAILY 12/14/14 08/27/18 History Levothyroxine Sodium [Synthroid] 88 mcg PO QAM 04/28/17 08/27/18 History Acetaminophen [Tylenol] 500 mg PO Q4-6H PRN 02/02/18 08/27/18 History L.acidoph,Paracasei, B.lactis 1 cap PO DAILY 05/12/18 08/27/18 History [Probiotic] Stool Softener 3 tab PO DAILY 05/12/18 08/27/18 History Ondansetron HCl [Zofran] 4 mg PO Q8HR PRN #10 tablet 05/21/18 08/27/18 Rx Simethicone 40 mg/0.6 ml Drops 40 mg PO Q6HR PRN #30 ml 05/21/18 08/27/18 Rx [Mylicon Drops] Ascorbic Acid [Vitamin C] 1 tablet PO DAILY 08/12/18 08/27/18 History Cholecalciferol (Vitamin D3) 1 tablet PO DAILY 08/12/18 08/27/18 History [Vitamin D3] Cyanocobalamin (Vitamin B-12) 1 tablet PO DAILY 08/12/18 08/27/18 History [Vitamin B-12] Allergies Allergy/AdvReac Type Severity Reaction Status Date / Time Iodinated Contrast- Oral and Allergy Anaphylaxis Verified 08/27/18 14:36 IV Dye [Iodinated Contrast Media - IV Dye] atorvastatin calcium AdvReac Nausea Verified 08/27/18 14:36 [From Lipitor] celecoxib [From Celebrex] AdvReac Nausea Verified 08/27/18 14:36 cephalexin [From Keflex] AdvReac Unknown Unverified 08/27/18 14:36 influenza virus vaccine, AdvReac Nausea & Verified 08/27/18 14:36 specific Vomiting & [influenza virus Diarrhea,high vacc,specific] fever Surgical - Exam Vital Signs Temp Pulse Resp BP Pulse Ox 96.4 F L 83 18 124/69 94 L 08/27/18 14:37 08/27/18 14:37 08/27/18 14:37 08/27/18 14:37 08/27/18 14:37 BMI 21.6 - General cachectic - Eyes normal ocular movement - ENT no hearing loss, no congestion - Neck no masses, trachea midline - Cardiovascular Heart Sounds: normal: S1, S2 - Abdomen well healed scar from prior surgery Abdomen: soft, non tender, no guarding, no rigid, no rebound - Integumentary normal turgor - Neurologic no disoriented, no combative - Musculoskeletal normal gait - Psychiatric oriented to time, oriented to person, oriented to place, speech is normal, memory intact Breast examination: Right breast: Patient status post mastectomy, chest wall incision clean and dry with no evidence of recurrence Right axilla: No adenopathy of concern Left breast: Enlarged fullness upper-outer quadrant area extending to the region of the axilla proximally 5 cm in size, there are also a fullness of the left axilla Left axilla: Left axillary mass contiguous with upper-outer quadrant breast mass This area is not tender to palpation today The patient does not have cervical adenopathy, no right axillary adenopathy, no groin adenopathy Results Patient's pathology report revealed highly suspicious for B-cell lymphoma Assessment and Plan Assessment: Impression: 1. New-onset left axillary node but her quadrant breast mass, status post core biopsy suspicious for B-cell lymphoma 2. Resolved pain in left breast 3. Night sweats 4. Status post surgery for ovarian cancer 5. Status post surgery for diverticular disease 6. Status post surgery for hiatal hernia 7. Melanoma right face 8. Family history of breast cancer 9. Personal history of breast cancer Plan: 1. The patient is going to have a open biopsy of the left upper outer quadrant/ axillary breast adenopathy 2. Medical management of medical conditions We have discussed options with the patient and her granddaughter. This will include repeat core biopsy versus open biopsy in the operating room. They understand the risk of open biopsy which includes increased risk of bleeding, risk of infection. They wish to proceed. The do not want to undergo a repeat core biopsy and has declined this at the present time. Her case is also been discussed with medical oncology and pathology which also are requesting an open biopsy be performed. Cc: Dr. Rob Arias
== END | disposition home or self-care (01) ==
LOC: WWCWWP 14:26
PROVIDERS: ATTEND Surgery
DX: Z53.9 Procedure and treatment not carried out, unspecified reason (principal)

== ENCOUNTER 2018-09-07 08:50 | Day surgery (SDC) | payer MEDICARE ==
[2018-09-03 10:47] VITALS: BMI 21.1
[~2018-09-07 08:50] MED LIST changes: +HYDROmorphone 0.5 MG/0.5 ML SYRINGE IVP PRN; +LACTATED RINGERS 1,000 ML IV SCH; +Pre Op ABX Message 1 EACH MISC MISCELLANE ONE; +SCOPOLAMINE 1.5MG/72HR PATCH TRANSDERM ONE; -ceFAZolin IN SWFI 2 GM/20 ML SYRINGE IVP ONE; -fentaNYL (PF) 50 MCG/ML 2 ML AMP IV PRN; -metroNIDAZOLE-NS PMX 500 MG in SALINE 1 100ML.BAG IVPB ONE
[2018-09-07 09:18] VITALS: RESP 16
[2018-09-07] MEDS ORDERED: HEPARIN SODIUM,PORCINE 5,000 UNIT/ML 1 ML VIAL SQ ONE (10:01)
[2018-09-07] MEDS ORDERED: HYDROmorphone (PF) 1 MG/ML ONE (10:19)
[2018-09-07] MEDS ORDERED: LIDOCAINE 1% INJ 10MG/ML (20 ML MDV) ONE (10:19)
[2018-09-07] MEDS ORDERED: SUCCINYLCHOLINE CHLORIDE 100 MG/5 ML SYR IV ONE (10:19)
[2018-09-07] MEDS ORDERED: fentaNYL (PF) 50 MCG/ML 2 ML AMP ONE (10:19)
[2018-09-07] MEDS ORDERED: PROPOFOL 10 MG/ML 20 ML VIAL IV ONE (10:19)
[2018-09-07] MEDS ORDERED: LIDOCAINE 1% INJ 10MG/ML (20 ML MDV) SQ ONE ×2 (10:21)
--- NOTE | 2018-09-07 11:11 | P.OP ---
Date of Procedure: 09/07/18 Preoperative Diagnosis: Mass left breast tail of the breast extending into the axilla Postoperative Diagnosis: Same Procedure(s) Performed: Local biopsy left tail of the breast/axillary mass Anesthesia: ELIAS Surgeon: Mary Deras Estimated Blood Loss (ml): 5 IV fluids (ml): 400 Pathology: other (The biopsy tissue axillary tail of left breast) Condition: stable Disposition: same day Indications for Procedure: Biopsies suspicious for B-cell lymphoma but nondiagnostic recommended to undergo open biopsy Operative Findings: Mass tail of the breast extending into the area of the axilla Description of Procedure: Marsha is an 83-year-old white female who presented with a fullness in the tail of the left breast extending to the area of the axilla. A core biopsy was obtained which was suspicious for B-cell lymphoma but nondiagnostic. We were requested to perform an open biopsy for more tissue. The patient was taken to the operating room and the left breast and axilla were prepped and draped in a sterile fashion. This was done following induction of general anesthesia. An incision was made over the palpable abnormality. A area approximately 2 x 2 centimeters which was firm and consistent with tumor was excised. This was done utilizing the Harmonic scalpel and being careful to maintain hemostasis. After assured that hemostasis was attained the specimen was sent fresh to pathology. The deep tissues were closed using 3-0 Vicryl suture. The skin was closed using 4-0 Monocryl. Intraoperative conversation with pathology was obtained and the specimen was evaluated by pathology prior to awakening the patient. Patient tolerated procedure in stable condition. All instrument and sponge counts were correct at the end of the case.
--- NOTE | 2018-09-07 11:24 | P.DS ---
Providers Attending physician: Mary Deras Primary care physician: Rob Arias Plan - Discharge Summary Discharge Rx Participant: No New Discharge Prescriptions: No Action Ubidecarenone [Co Q-10] 88 mg PO DAILY Levothyroxine Sodium [Synthroid] 88 mcg PO QAM L.acidoph,Paracasei, B.lactis [Probiotic] 1 cap PO DAILY Stool Softener 3 tab PO DAILY Cyanocobalamin (Vitamin B-12) [Vitamin B-12] 1,000 mcg PO DAILY Cholecalciferol (Vitamin D3) [Vitamin D3] 2,000 unit PO DAILY Ascorbic Acid [Vitamin C] 500 mg PO DAILY Discharge Medication List Ubidecarenone [Co Q-10] 88 mg PO DAILY 12/14/14 [History] Levothyroxine Sodium [Synthroid] 88 mcg PO QAM 04/28/17 [History] L.acidoph,Paracasei, B.lactis [Probiotic] 1 cap PO DAILY 05/12/18 [History] Stool Softener 3 tab PO DAILY 05/12/18 [History] Ascorbic Acid [Vitamin C] 500 mg PO DAILY 08/12/18 [History] Cholecalciferol (Vitamin D3) [Vitamin D3] 2,000 unit PO DAILY 08/12/18 [History] Cyanocobalamin (Vitamin B-12) [Vitamin B-12] 1,000 mcg PO DAILY 08/12/18 [ History] Follow up Appointment(s)/Referral(s): Mary Deras MD [STAFF PHYSICIAN] - 1 Week Activity/Diet/Wound Care/Special Instructions: do not drive today may shower after 48 hours Discharge Disposition: HOME SELF-CARE
[2018-09-07 11:35] VITALS: TEMP 98.2
[2018-09-07 12:47] VITALS: BP 117/54; PULSE 82
== END 2018-09-07 12:58 | disposition home or self-care (01) ==
LOC: OR 08:50
PROVIDERS: ATTEND Surgery
DX: C83.34 Diffuse large B-cell lymphoma, lymph nodes of axilla and upper limb (principal); E07.9 Disorder of thyroid, unspecified; M19.90 Unspecified osteoarthritis, unspecified site; C43.30 Malignant melanoma of unspecified part of face; Z85.3 Personal history of malignant neoplasm of breast; Z87.19 Personal history of other diseases of the digestive system; Z85.828 Personal history of other malignant neoplasm of skin; Z85.43 Personal history of malignant neoplasm of ovary; Z90.11 Acquired absence of right breast and nipple; Z90.710 Acquired absence of both cervix and uterus; Z90.79 Acquired absence of other genital organ(s); Z90.722 Acquired absence of ovaries, bilateral; Z80.3 Family history of malignant neoplasm of breast; Z80.51 Family history of malignant neoplasm of kidney; Z80.1 Family history of malignant neoplasm of trachea, bronchus and lung; Z80.0 Family history of malignant neoplasm of digestive organs; Z79.890 Hormone replacement therapy; Z79.899 Other long term (current) drug therapy; Z88.8 Allergy status to other drugs, medicaments and biological substances; Z88.1 Allergy status to other antibiotic agents; Z91.041 Radiographic dye allergy status; Z88.7 Allergy status to serum and vaccine; E78.5 Hyperlipidemia, unspecified; I48.91 Unspecified atrial fibrillation; Z87.01 Personal history of pneumonia (recurrent)
CPT/HCPCS: 19120; 88305; 88342; 88341; J1644; J1100; J2405; J2001; J3010; J1170; J0330; J2704

== ENCOUNTER → 2018-09-10 | Outpatient (CLI) | payer MEDICARE ==
[2018-09-10 13:04] VITALS: BP 153/78; PULSE 91; RESP 18; TEMP 96.9; BMI 20.5
--- NOTE | 2018-09-10 13:08 | P.PN ---
Progress Note - Text Progress Note Date: 09/10/18 Marsha is an 83-year-old white female status post left lateral breast/axillary tissue biopsy on 3518. 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 The patient has no complaints related to the biopsy. Physical exam: Lungs: Clear Heart: S1-S2 normal murmurs Incision: Clean and dry Evidence of infection Impression: 1. Patient postoperative left lateral breast/axillary donovan tissue biopsy positive for diffuse large B-cell lymphoma 2. Patient doing well at this time Plan: 1. Follow-up with medical oncology 2. Patient to follow here regarding her breast disease in 6 months CC: Dr. Kennedy, DR. Gilmore
== END | disposition home or self-care (01) ==
LOC: WWCWWP 12:42
PROVIDERS: ATTEND Surgery
DX: Z53.9 Procedure and treatment not carried out, unspecified reason (principal)

== ENCOUNTER → 2018-09-14 | Outpatient (CLI) | payer MEDICARE ==
[2018-09-14 12:03] VITALS: BP 135/63; PULSE 88; RESP 18; TEMP 97.2
--- NOTE | 2018-09-14 14:40 | P.PN ---
Progress Note - Text Progress Note Date: 09/14/18 The patient is an 83 year-old white female who is status post left breast/axillary tissue biopsy on 3518. 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 The patient was seen postoperatively and 3818. At that time she had no complaints related to the surgery and was doing well. However since then she is began to experience pain in the left axilla. This is remote from the biopsy site. A be consistent with the tumor itself. The patient has an appointment with medical oncology in approximately a week and a half however states that she wishes to see them sooner if possible. Physical exam: Incision clean and dry no evidence of infection Mild ecchymosis at incision site No Evidence of hematoma at this time Bulky left axillary adenopathy Impression: 1. Patient post procedure biopsy, positive for large B-cell lymphoma Plan: 1. I discussed the case with Dr. Kennedy who is going to see the patient on at 7:00 AM. I've also discussed this with the patient and she feels comfortable with this.
== END ==
LOC: WWCWWP 11:48
PROVIDERS: ATTEND Surgery
DX: Z53.9 Procedure and treatment not carried out, unspecified reason (principal)

== ENCOUNTER → 2018-09-16 | Outpatient (CLI) | payer MEDICARE ==
--- NOTE | 2018-09-16 13:32 | ECHOF ---
Referral Reason: MEASUREMENTS -------- HEIGHT: 162.6 cm WEIGHT: 56.2 kg BP: RVIDd: 2.9 cm (< 3.3) IVSd: 0.9 cm (0.6 - 1.1) LVIDd: 4.2 cm (3.9 - 5.3) LVPWd: 0.9 cm (0.6 - 1.1) IVSs: 1.4 cm LVIDs: 2.4 cm LVPWs: 1.7 cm LAESV Index (A-L): 20.91 ml/m Ao Diam: 2.9 cm (2.0 - 3.7) AV Cusp: 1.4 cm (1.5 - 2.6) LA Diam: 2.5 cm (2.7 - 3.8) MV EXCURSION: 12.755 mm (> 18.000) MV EF SLOPE: 27 mm/s (70 - 150) EPSS: 0.5 cm MV E Elias: 0.86 m/s MV DecT: 215 ms MV A Elias: 1.28 m/s MV E/A Ratio: 0.68 AR PHT: 266 ms RAP: 5.00 mmHg RVSP: 38.40 mmHg FINDINGS -------- Sinus rhythm with extra systolic beats. This was a technically adequate study. The left ventricular size is normal. Overall left ventricular systolic function is low-normal with, an EF between 50 - 55 %. The right ventricle is normal in size. Normal LA size by volume 22+/-6 ml/m2. The right atrial size is normal. There is mild aortic valve sclerosis. There is [id number] aortic regurgitation. The mitral valve leaflets are mildly thickened. Moderate mitral annular calcification present. Mi ld mitral regurgitation is present. Moderate tricuspid regurgitation present. There is mild pulmonary hypertension. The right ventric ular systolic pressure, as measured by Doppler, is 38.40mmHg. Trace/mild (physiologic) pulmonic regurgitation. There is a small, generalized pericardial effusion present. CONCLUSIONS -------- 1. Sinus rhythm with extra systolic beats. 2. This was a technically adequate study. 3. The left ventricular size is normal. 4. Overall left ventricular systolic function is low-normal with, an EF between 50 - 55 %. 5. Normal LA size by volume 22+/-6 ml/m2. 6. There is mild aortic valve sclerosis. 7. There is acjf-qe-gkjkvxak aortic regurgitation. 8. The mitral valve leaflets are mildly thickened. 9. Moderate mitral annular calcification present. 10. Mild mitral regurgitation is present. 11. Moderate tricuspid regurgitation present. 12. There is mild pulmonary hypertension. 13. Trace/mild (physiologic) pulmonic regurgitation. 14. There is a small, generalized pericardial effusion present. PLANT [employer] EQUIPMENT WORKER: Deborah Hanson RDCS
== END | disposition home or self-care (01) ==
LOC: RADECHMAIN 10:08
PROVIDERS: ATTEND Internal Medicine Hematology & Oncology
DX: Z01.818 Encounter for other preprocedural examination (principal); I08.3 Combined rheumatic disorders of mitral, aortic and tricuspid valves; I27.20 Pulmonary hypertension, unspecified; I31.3 Pericardial effusion (noninflammatory)
CPT/HCPCS: 93306

== ENCOUNTER → 2018-09-16 | Day surgery (SDC) | payer MEDICARE ==
[~2018-09-16] MED LIST changes: -DEXAMETHASONE SOD PHOSPHATE 10 MG/ML 1 ML VIAL IV ONE; -HEPARIN SODIUM,PORCINE 5,000 UNIT/ML 1 ML VIAL SQ ONE; -HYDROmorphone 0.5 MG/0.5 ML SYRINGE IVP PRN; -LACTATED RINGERS 1,000 ML IV SCH; -LIDOCAINE 1% 20 ML VIAL (10MG/ML) FOR IV START INTRADERMA PRN; +LIDOCAINE 1% INJ 10MG/ML (20 ML MDV) SQ ONE; -MIDAZOLAM 2 MG/2 ML VIAL IV PRN; -ONDANSETRON 4 MG/2 ML VIAL IVP ONE; -Pre Op ABX Message 1 EACH MISC MISCELLANE ONE; -SCOPOLAMINE 1.5MG/72HR PATCH TRANSDERM ONE
[2018-09-16 09:34] VITALS: PULSE 76; RESP 18; TEMP 98
[2018-09-16 11:46] VITALS: BP 129/62
--- NOTE | 2018-09-17 10:04 | IR ---
EXAMINATION TYPE: IR cvc insert >=5 years DATE OF EXAM: 09/16/2018 COMPARISON: NONE CLINICAL HISTORY: B-cell lymphoma Needs long-term intravenous access for chemotherapy. PROCEDURE: After informed consent, the skin overlying the right basilic vein was localized with ultrasound and n oted to be compressible and patent. An ultrasound image was obtained and submitted on the patient's chart. The overlying skin was prepped and draped and Lidocaine was used for local anesthesia. A ski n marina was made with a scalpel. Access was gained to the vein under ultrasound guidance with a 21 ga uge needle and a 0.018 inch wire was advanced. Access site was dilated with Peel-Away sheath and cat heter tailored to the appropriate length and advanced such that the distal tip is at the cavoatrial j unction. Spot image was obtained verifying placement. Catheter was fixed to the skin and a sterile dressing was placed following hemostasis. Catheter was aspirated and flushed with saline. Patient w as discharged in stable condition without complication. Maximal barrier technique is utilized. Ultra sound image is documented on the chart. Ultrasound used with sterile technique. Fluoro time and fluoroscopic images submitted to document procedure: 1.2 minutes fluoroscopy, 648 int raoperative C-arm images IMPRESSION: STATUS POST ULTRASOUND AND FLUOROSCOPIC GUIDED PICC LINE PLACEMENT, READY FOR USE. THIS PROCEDURE WAS PERFORMED BY THE UNDERSIGNED.
== END ==
LOC: CATHCVL 09:13
PROVIDERS: ATTEND Radiology Diagnostic Radiology
DX: C83.39 Diffuse large B-cell lymphoma, extranodal and solid organ sites (principal); C83.34 Diffuse large B-cell lymphoma, lymph nodes of axilla and upper limb; C82.09 Follicular lymphoma grade I, extranodal and solid organ sites; C44.319 Basal cell carcinoma of skin of other parts of face; M15.9 Polyosteoarthritis, unspecified; M79.7 Fibromyalgia; E03.9 Hypothyroidism, unspecified; E78.00 Pure hypercholesterolemia, unspecified; Z85.3 Personal history of malignant neoplasm of breast; Z90.11 Acquired absence of right breast and nipple; Z80.0 Family history of malignant neoplasm of digestive organs; Z80.1 Family history of malignant neoplasm of trachea, bronchus and lung; Z80.3 Family history of malignant neoplasm of breast; Z80.52 Family history of malignant neoplasm of bladder; Z79.890 Hormone replacement therapy; Z79.891 Long term (current) use of opiate analgesic; Z88.8 Allergy status to other drugs, medicaments and biological substances; Z91.041 Radiographic dye allergy status
CPT/HCPCS: 36573; C1751; C1769; J2001

== ENCOUNTER 2018-09-17 05:38 | Day surgery (SDC) | payer MEDICARE ==
[2018-09-16 14:52] VITALS: BMI 21.2
[~2018-09-17 05:38] MED LIST changes: +LACTATED RINGERS 1,000 ML IV SCH; +LIDOCAINE 1% 20 ML VIAL (10MG/ML) FOR IV START INTRADERMA PRN; -LIDOCAINE 1% INJ 10MG/ML (20 ML MDV) SQ ONE
[2018-09-17 06:26] VITALS: TEMP 98.4
[2018-09-17] MEDS ORDERED: PROPOFOL 10 MG/ML 20 ML VIAL IV ONE (07:17)
--- NOTE | 2018-09-17 07:39 | P.PCN ---
Date of Procedure: 09/17/18 Preoperative Diagnosis: B cell NHL Postoperative Diagnosis: B-cell lymphoma Procedure(s) Performed: bone marrow aspiration biopsy Anesthesia: MAC Surgeon: Valeriy Dalal Chief Marketing Officer #1: Stated None Estimated Blood Loss (ml): 2 Pathology: other Condition: stable Disposition: same day Indications for Procedure: new diagnosis of diffuse large B-cell lymphoma. Bone marrow aspiration biopsy done for staging Operative Findings: adequate samples Description of Procedure: the procedure was explained in detail to the patient in the office by Dr. Kennedy. She presented to the outpatient endoscopy suite where IV access and informed consent was obtained. She was then placed in the left lateral decubitus position. The area over both posterior iliac crest was cleaned and prepped with chlorhexidine and sterile draping. IV sedation was then initiated. local anesthesia was administered with lidocaine to the right posterior hilar crest. A Jamshidi needle was then inserted and bone marrow aspirate and biopsy obtained. On withdrawal of the needle hemostasis was easily achieved. Blood loss was minimal and recovery from sedation was satisfactory. she appeared to have tolerated the procedure well without any obvious immediate complications.
[2018-09-17 07:51] VITALS: RESP 16
[2018-09-17 07:51] LABS: Basophils % (A) 0 %; Eosinophils # (A) 0.3 k/uL (0-0.7); Eosinophils % (A) 3 %; HCT 34.7 % (34.0-46.0); HGB 11.2 gm/dL (11.4-16.0); Lymphocytes % (A) 9 %; MCH 26.7 pg (25.0-35.0); MCHC 32.4 g/dL (31.0-37.0); MCV 82.6 fL (80.0-100.0); Mean Platelet Volume 7.5; Monocytes # (A) 0.9 k/uL (0-1.0); Monocytes % (A) 8 %; Neutrophils # (A) 8.8 k/uL (1.3-7.7); Neutrophils % (A) 79 %; Platelet Count 333 k/uL (150-450); RDW 14.1 % (11.5-15.5); WBC 11.2 k/uL (3.8-10.6)
[2018-09-17 08:08] VITALS: BP 101/61; PULSE 85
== END 2018-09-17 08:29 | disposition home or self-care (01) ==
LOC: OR 05:38
PROVIDERS: ATTEND Internal Medicine Hematology & Oncology
DX: D64.9 Anemia, unspecified (principal); Z90.11 Acquired absence of right breast and nipple; M15.9 Polyosteoarthritis, unspecified; M79.7 Fibromyalgia; E03.9 Hypothyroidism, unspecified; Z85.3 Personal history of malignant neoplasm of breast; Z85.43 Personal history of malignant neoplasm of ovary; Z85.828 Personal history of other malignant neoplasm of skin; Z85.89 Personal history of malignant neoplasm of other organs and systems; E78.00 Pure hypercholesterolemia, unspecified; Z80.0 Family history of malignant neoplasm of digestive organs; Z80.52 Family history of malignant neoplasm of bladder; Z80.1 Family history of malignant neoplasm of trachea, bronchus and lung; Z80.3 Family history of malignant neoplasm of breast; Z79.890 Hormone replacement therapy; Z79.891 Long term (current) use of opiate analgesic; Z88.8 Allergy status to other drugs, medicaments and biological substances; Z91.041 Radiographic dye allergy status
CPT/HCPCS: 85025; 38222; J2704

== ENCOUNTER → 2018-09-18 | Outpatient (CLI) | payer MEDICARE ==
--- NOTE | 2018-09-20 09:12 | PE ---
Nuclear medicine PET/CT HISTORY: Lymphoma, initial Patient received 13.1 mCi F-18 FDG intravenously in delayed scanning was performed from the skull bas e to the mid thighs. An attenuation correction, localization CT scan was also performed. Correlation to CT 04/28/2017 Neck and chest: Left supraclavicular adenopathy shows associated hypermetabolic uptake, SUV 9.5, 8.7. There is extensive retropectoral, left axillary adenopathy with associated hypermetabolic uptake, AMEZCUA V up to 15. Left upper lobe lung mass measures approximately 16 x 14 mm and shows hypermetabolic upta ke, SUV 5.3. Retrocaval pretracheal nodes, prevascular nodes, subcarinal nodes show associated hyperm etabolic uptake SUV 3.8-7.4, there is internal mammary node which is enlarged on the left and shows a ssociated hypermetabolic uptake, SUV 13.1. There is a small left pleural effusion, basilar atelectati c changes are present bilaterally. The heart is enlarged. There are coronary artery calcifications. T here is trace pericardial effusion. Small hiatal hernia. Abdomen pelvis: There is extensive retroperitoneal adenopathy with associated hypermetabolic uptake S UV 10, spleen shows hyperintensity and is likely enlarged, SUV 15-18. There is activity along the les ser curvature of the stomach SUV 7.6 and within the portal region there is adenopathy with associated hypermetabolic uptake, SUV 6. Hypermetabolic uptake is also noted along the iliac nodes SUV 6.2-11on the right, 3.3-16 on the left. There is some mild uptake in the inguinal nodes, left inguinal node is enlarged at 17 mm. SUV 11. Patient is post cholecystectomy. Osseous structures: No suspicious hypermetabolic uptake. IMPRESSION: Findings compatible with patient's history of lymphoma.
== END | disposition home or self-care (01) ==
LOC: RADPETMAIN 09:30
PROVIDERS: ATTEND Internal Medicine Hematology & Oncology
DX: C83.34 Diffuse large B-cell lymphoma, lymph nodes of axilla and upper limb (principal)
CPT/HCPCS: 78815; A9552

== ENCOUNTER 2018-09-26 06:41 | Inpatient (IN) | payer MEDICARE ==
--- NOTE | 2018-09-26 07:19 | XR ---
EXAMINATION TYPE: XR KUB DATE OF EXAM: 09/26/2018 CLINICAL DATA: 83-year-old female with pain, [facility] COMPARISON: Correlation PET CT 09/18/2018 and radiograph 02/03/2018 FINDINGS: Lung bases are clear. No evidence for free intraperitoneal air. No dilated small bowel or air-fluid levels. Scattered air and stool seen throughout the colon extendi ng distally into the rectum. Multiple prominent air distended colonic loops redemonstrated. Cholecystectomy clips. IMPRESSION: Some similar prominent air distended colon without evidence of bowel obstruction or free intraperiton eal air.
--- NOTE | 2018-09-26 07:38 | ED ---
General Adult HPI - General Chief complaint: Abdominal Pain Stated complaint: Abdominal Pain Time Seen by Provider: 09/26/18 07:13 Source: patient Mode of arrival: wheelchair Limitations: no limitations - History of Present Illness Initial comments: Dictation was produced using [employer] dictation software. please excuse any grammatical, word or spelling errors. Chief Complaint: 83-year-old female presents with abdominal pain and constipation since yesterday. History of Present Illness: Patient is 83-year-old female shows past medical history of lymphoma. She is currently has a PICC line placed for chemotherapy. Patient is known history of bowel adhesions causing mild bowel obstruction. Patient has seen Dr. Dumont from general surgery before. She reports that her last bowel movement was 2 days ago. She feels nauseous however no vomiting. Patient also reports associated abdominal pain. She reports that she has twisted while which was told to her by general surgeon. There was plans to have lysis of adhesions procedure performed however in light of recent lymphoma exacerbation that surgery was rescheduled for later time once lymphoma issues were addressed. Patient states she has not passed gas at all today. She does feel nauseated. Denies any fever, chills, constitutional symptoms. Patient still able to tolerate clear liquids. The ROS documented in this emergency department record has been reviewed and confirmed by me. Those systems with pertinent positive or negative responses have been documented in the HPI. All other systems are other negative and/or noncontributory. PHYSICAL EXAM: General Impression: Alert and oriented x3, not in acute distress HEENT: Normocephalic atraumatic, extra-ocular movements intact, pupils equal and reactive to light bilaterally, mucous membranes moist. Cardiovascular: Heart regular rate and rhythm, S1&S2 audible, no murmurs, rubs or gallops Chest: Lungs clear to auscultation bilaterally, no rhonchi, no wheeze, no rales Abdomen: Bowel sounds present, diffuse abdominal tenderness, tympany to percussion Musculoskeletal: Pulses present and equal in all extremities, no peripheral edema Motor: no focal deficits noted Neurological: CN II-XII grossly intact, no focal motor or sensory deficits noted Skin: Intact with no visualized rashes Psych: Normal affect and mood ED course: 83-year-old female past medical history of lymphoma, atrial fibrill ation, dyslipidemia, pneumonia, bowel adhesions presents with obstipation. Vital signs upon arrival are within acceptable limits. Patient is resting comfortably at this time. There is elicited tenderness with palpation to the abdomen.Lab data evaluation obtained. Patient is monocytosis 11.1 likely secondary to stress. Metabolic panel shows no acute processes. No laxity acidosis or anion gap acidosis. Given patient's degree of symptoms x-ray was obtained showing crease tumor burden of the bowel and retroperitoneal space. Given positive radiographic evidence and patient's abdominal symptoms , obstipation patient will be admitted to inpatient with consultation to general surgery, gastroenterology and oncology. At this point patient not showing any signs of vomiting however she feels nauseous and is having abdominal pain. She is given IV analgesia. At this point there is no clear indication for NG tube placement. Patient understandable and agreeable to plan. No findings to sug gest intra-abdominal infection to warrant antibiotic administration at this time. - Related Data Home Medications Medication Instructions Recorded Confirmed Levothyroxine Sodium [Synthroid] 88 mcg PO QAM 04/28/17 09/26/18 traMADol HCL [Ultram] 50 mg PO Q6H PRN 09/14/18 09/26/18 Acetaminophen [Tylenol Extra 500 mg PO TID PRN 09/26/18 09/26/18 Strength] Allergies Allergy/AdvReac Type Severity Reaction Status Date / Time Iodinated Contrast- Oral and Allergy Anaphylaxis Verified 09/26/18 07:40 IV Dye [Iodinated Contrast Media - IV Dye] atorvastatin calcium AdvReac Nausea Verified 09/26/18 07:40 [From Lipitor] celecoxib [From Celebrex] AdvReac Nausea Verified 09/26/18 07:40 cephalexin [From Keflex] AdvReac Unknown Verified 09/26/18 07:40 influenza virus vaccine, AdvReac Nausea & Verified 09/26/18 07:40 specific Vomiting & [influenza virus Diarrhea,high vacc,specific] fever Review of Systems ROS Statement: Those systems with pertinent positive or pertinent negative responses have been documented in the HPI. ROS Other: All systems not noted in ROS Statement are negative. Past Medical History Past Medical History: Atrial Fibrillation, Cancer, COPD, GERD/Reflux, Hearing Disorder / Deafness, Hyperlipidemia, Musculoskeletal Disorder, Osteoarthritis (OA), Pneumonia, Thyroid Disorder Additional Past Medical History / Comment(s): Constipation, bowel adhesions. Hx bowel obstruction, right breast cancer-1997 no chemo or radiation, melanoma face 2015, osteoporosis, pneumonia Aug 2016, Lymphoma History of Any Multi-Drug Resistant Organisms: MRSA Date of last positivie culture/infection: 2010? MDRO Source:: post surgical wound from bowel resection Past Surgical History: Appendectomy, Bowel Resection, Breast Surgery, Cholecystectomy, Hysterectomy Additional Past Surgical History / Comment(s): Bilateral cataracts, right mastectomy. Past Anesthesia/Blood Transfusion Reactions: No Reported Reaction Additional Past Anesthesia/Blood Transfusion Reaction / Comment(s): no hx blood transfusion Past Psychological History: No Psychological Hx Reported Smoking Status: Never smoker Past Alcohol Use History: None Reported Past Drug Use History: None Reported - Past Family History Sister(s) Family Medical History: Cancer, CVA/TIA Additional Family Medical History / Comment(s): breast Cancer in 3 sisters Son(s) Family Medical History: Cancer, Thyroid Disorder Additional Family Medical History / Comment(s): LYMPHOMA, Congential heart problem. Daughter(s) Family Medical History: Cancer Additional Family Medical History / Comment(s): colon cancer Brother(s) Family Medical History: Cancer Additional Family Medical History / Comment(s): ONE BROTHER BLADDER CA, ONE WITH LUNG CA Mother Family Medical History: Cancer Additional Family Medical History / Comment(s): Stomach cancer Father Family Medical History: CVA/TIA General Exam Limitations: no limitations Course Vital Signs 09/26/18 09/26/18 09/26/18 06:47 07:40 08:00 Temperature 97.9 F Pulse Rate 93 82 Respiratory 20 18 16 Rate Blood Pressure 121/72 121/82 121/82 O2 Sat by Pulse 95 96 97 Oximetry 09/26/18 09/26/18 09/26/18 08:30 09:00 09:30 Temperature Pulse Rate 84 Respiratory 16 Rate Blood Pressure 111/62 130/67 124/70 O2 Sat by Pulse 96 96 95 Oximetry 09/26/18 10:00 Temperature Pulse Rate Respiratory Rate Blood Pressure 132/63 O2 Sat by Pulse 96 Oximetry Medical Decision Making - Lab Data Result diagrams: 09/26/18 07:40 09/26/18 07:40 Lab Results 09/26/18 09/26/18 09/26/18 Range/Units 07:40 07:40 07:40 WBC 11.1 H (3.8-10.6) k/uL RBC 4.06 (3.80-5.40) m/uL Hgb 10.8 L (11.4-16.0) gm/dL Hct 34.2 (34.0-46.0) % MCV 84.2 (80.0-100.0) fL MCH 26.6 (25.0-35.0) pg MCHC 31.6 (31.0-37.0) g/dL RDW 14.3 (11.5-15.5) % Plt Count 326 (150-450) k/uL Neutrophils % 85 % Lymphocytes % 7 % Monocytes % 5 % Eosinophils % 2 % Basophils % 0 % Neutrophils # 9.4 H (1.3-7.7) k/uL Lymphocytes # 0.8 L (1.0-4.8) k/uL Monocytes # 0.6 (0-1.0) k/uL Eosinophils # 0.2 (0-0.7) k/uL Basophils # 0.0 (0-0.2) k/uL Hypochromasia Slight Sodium 135 L (137-145) mmol/L Potassium 3.8 (3.5-5.1) mmol/L Chloride 99 (98-107) mmol/L Carbon Dioxide 29 (22-30) mmol/L Anion Gap 7 mmol/L BUN 13 (7-17) mg/dL Creatinine 0.91 (0.52-1.04) mg/dL Est GFR (CKD-EPI)AfAm 67 (>60 ml/min/1.73 sqM) Est GFR (CKD-EPI)NonAf 59 (>60 ml/min/1.73 sqM) Glucose 106 H (74-99) mg/dL Plasma Lactic Acid Jefferson 1.2 (0.7-2.0) mmol/L Calcium 11.5 H (8.4-10.2) mg/dL Magnesium 1.9 (1.6-2.3) mg/dL Total Bilirubin 0.8 (0.2-1.3) mg/dL AST 26 (14-36) U/L ALT 21 (9-52) U/L Alkaline Phosphatase 93 (38-126) U/L Total Protein 5.6 L (6.3-8.2) g/dL Albumin 2.8 L (3.5-5.0) g/dL Lipase 71 (23-300) U/L Disposition Clinical Impression: Abdominal pain Disposition: ADMITTED IP TO THIS HOSP Condition: Fair Referrals: Rob Arias MD [Primary Care Provider] - 1-2 days Decision Time: 10:32
[2018-09-26 07:51] LABS: Basophils % (A) 0 %; Eosinophils # (A) 0.2 k/uL (0-0.7); Eosinophils % (A) 2 %; HCT 34.2 % (34.0-46.0); HGB 10.8 gm/dL (11.4-16.0); Hypochromasia Slight; Lymphocytes # (A) 0.8 k/uL (1.0-4.8); Lymphocytes % (A) 7 %; MCH 26.6 pg (25.0-35.0); MCHC 31.6 g/dL (31.0-37.0); MCV 84.2 fL (80.0-100.0); Mean Platelet Volume 6.2; Monocytes # (A) 0.6 k/uL (0-1.0); Monocytes % (A) 5 %; Neutrophils # (A) 9.4 k/uL (1.3-7.7); Neutrophils % (A) 85 %; Platelet Count 326 k/uL (150-450); RBC 4.06 m/uL (3.80-5.40); RDW 14.3 % (11.5-15.5); WBC 11.1 k/uL (3.8-10.6)
[2018-09-26] MEDS ORDERED: MORPHINE SULFATE 2 MG/ML SYRINGE IVP STA (08:07)
[2018-09-26 08:21] LABS: Albumin 2.8 g/dL (3.5-5.0); Calcium 11.5 mg/dL (8.4-10.2); Magnesium 1.9 mg/dL (1.6-2.3); Potassium 3.8 mmol/L (3.5-5.1); Total Bilirubin 0.8 mg/dL (0.2-1.3); Total Protein 5.6 g/dL (6.3-8.2)
--- NOTE | 2018-09-26 08:22 | CT ---
EXAMINATION TYPE: CT abdomen pelvis wo con DATE OF EXAM: 09/26/2018 COMPARISON: PET CT 09/18/2018 HISTORY: 83-year-old female Abdominal pain CT DLP: 373.9 mGycm. Automated exposure control for dose reduction was used. TECHNIQUE: Contiguous axial scanning of the abdomen and pelvis without IV contrast. Coronal and sagit pavan reconstructions performed. FINDINGS: Heart upper limits of normal in size with new small pericardial effusion measuring 1.1 cm thick. Cont inued small left pleural effusion. Patchy posterior basilar opacities are noted, probably atelectasis . 5 mm right basilar pulmonary nodule axial image 10 is unchanged. Moderate atherosclerotic calcification throughout the abdominal aorta and iliac arteries. Stable dilatation of bile duct into 1.5 cm without a distal obstructing lesion seen, probably chronic in this patient status post cholecystectomy. Noncontrast appearance of the liver, adrenal glands, kidneys, and pancreas show no gross abnormal mob ility. Stable bulky appearance to the spleen, borderline enlarged at 13.8 cm. It appears slightly larger fro m prior exam. Central hypodensity is unchanged. Generalized lymphadenopathy particularly in the retroperitoneal region shows slight increase in the i nterval measuring 2.4 cm aortocaval versus 2.2 cm, previously, 2.3 cm right pericaval versus 1.9 cm, previously. 1.7 cm left para-aortic versus 1.6 cm, previously. Small fatty umbilical hernia. No dilated small bowel, free fluid, or free air. Low hanging cecum located within the pelvis. Moderate stool primarily in the cecum though decreased f rom prior. No pericolonic inflammatory change seen. Bladder partially distended. Iliac GI lymph nodes measure 21.8 cm on the right and 1.5 cm on the left and do not appear significantly changed. Small amount of cul-de-sac free fluid is unchanged. Left fe moral chain/inguinal lymph node measures 1.6 cm, unchanged. Bones: Facet arthropathy lower lumbar spine. Moderate to advanced degenerative disc disease throughou t the lumbar spine. IMPRESSION: 1. Correlate for possible fluid overload state given small left pleural effusion and small amount of pelvic ascites. A small pericardial effusion measuring 1.1 cm thick is new. 2. Diffuse retroperitoneal and some mesenteric lymphadenopathy as well as pelvic side chain and left inguinal lymphadenopathy. Lymph nodes, particularly in the retroperitoneum are either stable or slig htly larger measuring up to 2.4 cm as outlined above. 3. Bulky spleen is slightly larger now as well measuring 13.8 cm versus 12.0 cm, previously. 4. Stable 1.5 cm dilatation of the bile duct probably normal in this patient post cholecystectomy. T his can be confirmed with normal alkaline phosphatase and bilirubin levels.
[2018-09-26] MEDS ORDERED: ACETAMINOPHEN TAB 325 MG TAB PO PRN (10:26)
[2018-09-26] MEDS ORDERED: NALOXONE 0.4 MG/ML 1 ML VIAL IV PRN (10:26)
[2018-09-26] MEDS: SODIUM CHLORIDE 0.9% 1,000 ML IV SCH (10:44)
[2018-09-26 11:50] LABS: Appearance,Urine Clear (Clear); Color,Urine Light Yellow; Specific Gravity,Urine 1.005 (1.001-1.035)
[2018-09-26 11:51] LABS: Bilirubin,Urine Negative (Negative); Blood,Urine Negative (Negative); Glucose,Urine (UA) Negative (Negative); Ketones,Urine Negative (Negative); Leukocyte Esterase,Urine Small (Negative); Nitrite,Urine Negative (Negative); Protein,Urine Negative (Negative); Urobilinogen,Urine <2.0 mg/dL (<2.0)
[2018-09-26 11:52] LABS: RBC,Urine 1 /hpf (0-5); WBC,Urine >5 /hpf (0-5)
[2018-09-26 11:53] LABS: Amorphous Sediment,Urine Moderate /hpf; Bacteria,Urine Many /hpf; Squamous Epithelial Cell,Urine 3 /hpf (0-4)
--- NOTE | 2018-09-26 13:06 | P.HPIM ---
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 Arias This is a pleasant 83 years old female with past medical history of atrial fibrillation, COPD, lymphoma, GERD, hearing difficulty, osteoarthritis, hyperlipidemia, constipation,. Who presents because of abdominal pain. Patient states that she's been diagnosed with lymphoma about 4-5 weeks ago when she had left axillary lymphadenopathy. Biopsy was positive for lymphoma as per patient. And she follow up with Dr. Kennedy. However patient denies fever or weakness. About 4 days ago she was started having crampy abdominal pain in the middle abdomen more on the right side, nonradiating, was severe enough to prevent her from sleep, it felt like 10/10. Usually patient constipated but she is not eating much and she did not have bowel movement for the last 3-4 days. She has some nausea but no vomiting. She is drinking enough fluid but not good amount of food. No urinary complaints. CT of the abdomen: atelectasis, pulmonary nodule (5mm), slightly enlarged spleen and slightly enlarged than before retroperitoneal lymphadenopathy. Postcholecystectomy CBD dilatation WBC 11.1 K, hemoglobin 10.8.creatinine 0.9, lactic acid 1.2, high calcium at 11.5. Urinalysis is negative for infection. Patient has history of constipation, colonoscopy done on 02/2018: Diverticulosis,tortuous colon, Tubular adenomas were identified along the sigmoid colon and transverse colon over 1 cm however difficult to obtain secondary to tortuosity of colon. Review of Systems CONSTITUTIONAL: No fever, no malaise, no fatigue. HEENT: No recent visual problems or hearing problems. Denied any sore throat. CARDIOVASCULAR: No orthopnea, PND, no palpitations, no syncope. PULMONARY: No shortness of breath, no cough, no hemoptysis. GASTROINTESTINAL: No diarrhea, no nausea, no vomiting, no abdominal pain. Normoactive bowel sounds. NEUROLOGICAL: No headaches, no weakness, no numbness. HEMATOLOGICAL: Denies any bleeding or petechiae. GENITOURINARY: Denies any burning micturition, frequency, or urgency. MUSCULOSKELETAL/RHEUMATOLOGICAL: Denies any joint pain, swelling, or any muscle pain. ENDOCRINE: Denies any polyuria or polydipsia. Past Medical History Past Medical History: Atrial Fibrillation, Cancer, COPD, GERD/Reflux, Hearing Disorder / Deafness, Hyperlipidemia, Musculoskeletal Disorder, Osteoarthritis (OA), Pneumonia, Thyroid Disorder Additional Past Medical History / Comment(s): Constipation, bowel adhesions. Hx bowel obstruction, right breast cancer-1997 no chemo or radiation, melanoma face 2014, osteoporosis, pneumonia Aug 2016, Lymphoma History of Any Multi-Drug Resistant Organisms: MRSA Date of last positivie culture/infection: 2010? MDRO Source:: post surgical wound from bowel resection Past Surgical History: Appendectomy, Bowel Resection, Breast Surgery, Cholecyste ctomy, Hysterectomy Additional Past Surgical History / Comment(s): Bilateral cataracts, right mastectomy. Past Anesthesia/Blood Transfusion Reactions: No Reported Reaction Additional Past Anesthesia/Blood Transfusion Reaction / Comment(s): no hx blood transfusion Past Psychological History: No Psychological Hx Reported Smoking Status: Never smoker Past Alcohol Use History: None Reported Past Drug Use History: None Reported - Past Family History Sister(s) Family Medical History: Cancer, CVA/TIA Additional Family Medical History / Comment(s): breast Cancer in 3 sisters Son(s) Family Medical History: Cancer, Thyroid Disorder Additional Family Medical History / Comment(s): LYMPHOMA, Congential heart problem. Daughter(s) Family Medical History: Cancer Additional Family Medical History / Comment(s): colon cancer Brother(s) Family Medical History: Cancer Additional Family Medical History / Comment(s): ONE BROTHER BLADDER CA, ONE WITH LUNG CA Mother Family Medical History: Cancer Additional Family Medical History / Comment(s): Stomach cancer Father Family Medical History: CVA/TIA Medications and Allergies Home Medications Medication Instructions Recorded Confirmed Type RX: Levothyroxine Sodium 88 mcg PO QAM 04/28/17 09/26/18 History [Synthroid] traMADol HCL [Ultram] 50 mg PO Q6H PRN 09/14/18 09/26/18 History Acetaminophen [Tylenol Extra 500 mg PO TID PRN 09/26/18 09/26/18 History Strength] Allergies Allergy/AdvReac Type Severity Reaction Status Date / Time Iodinated Contrast- Oral and Allergy Anaphylaxis Verified 09/26/18 07:40 IV Dye [Iodinated Contrast Media - IV Dye] atorvastatin calcium AdvReac Nausea Verified 09/26/18 07:40 [From Lipitor] celecoxib [From Celebrex] AdvReac Nausea Verified 09/26/18 07:40 cephalexin [From Keflex] AdvReac Unknown Verified 09/26/18 07:40 influenza virus vaccine, AdvReac Nausea & Verified 09/26/18 07:40 specific Vomiting & [influenza virus Diarrhea,high vacc,specific] fever Physical Exam Vitals: Vital Signs Temp Pulse Resp BP Pulse Ox 09/26/18 10:30 150/69 96 09/26/18 10:00 132/63 96 09/26/18 09:30 124/70 95 09/26/18 09:00 130/67 96 09/26/18 08:30 84 16 111/62 96 09/26/18 08:00 82 16 121/82 97 09/26/18 07:40 18 121/82 96 09/26/18 06:47 97.9 F 93 20 121/72 95 Intake and Output 09/25/18 09/26/18 09/26/18 22:59 06:59 14:59 Other: Weight 55.792 kg GENERAL: The patient is alert and oriented x3, not in any acute distress. Well developed, well nourished. HEENT: Pupils are round and equally reacting to light. EOMI. No scleral icterus. No conjunctival pallor. Normocephalic, atraumatic. No pharyngeal erythema. No t hyromegaly. CARDIOVASCULAR: S1 and S2 present. No murmurs, rubs, or gallops. PULMONARY: Chest is clear to auscultation, no wheezing or crackles. -ABDOMEN: Soft, I abdominal periumbilical tenderness, with no guarding or rebound tenderness nondistended, normoactive bowel sounds. No palpable organom egaly. MUSCULOSKELETAL: No joint swelling or deformity. EXTREMITIES: No cyanosis, clubbing, or pedal edema. NEUROLOGICAL: Gross neurological examination did not reveal any focal deficits. SKIN: No rashes. Results CBC & Chem 7: 09/26/18 07:40 09/26/18 07:40 Labs: Abnormal Lab Results - Last 24 Hours (Table) 09/26/18 09/26/18 09/26/18 Range/Units 07:40 07:40 10:02 WBC 11.1 H (3.8-10.6) k/uL Hgb 10.8 L (11.4-16.0) gm/dL Neutrophils # 9.4 H (1.3-7.7) k/uL Lymphocytes # 0.8 L (1.0-4.8) k/uL Sodium 135 L (137-145) mmol/L Glucose 106 H (74-99) mg/dL Calcium 11.5 H (8.4-10.2) mg/dL Total Protein 5.6 L (6.3-8.2) g/dL Albumin 2.8 L (3.5-5.0) g/dL Urine WBC >5 H (0-5) /hpf Urine WBC Clumps Rare H (None) /hpf Amorphous Sediment Moderate H (None) /hpf Urine Bacteria Many H (None) /hpf Assessment and Plan Assessment: Abdominal pain, GI and surgery consult has been called by ED team Slightly worsening retroperitoneal lymphadenopathy and splenomegaly Recent history of lymphoma Pulmonary nodule, 5 mm Chronic atrial fibrillation, not on anticoagulation. Patient follow up with Dr. Casarez History of GERD Hearing difficulty Osteoarthritis Hyperlipidemia History of constipation Postcholecystectomy CBD dilatation Plan: This is a pleasant 83 years old female who presents because of abdominal pain with recently diagnosed lymphoma. Her pain looks like related to her retroperitoneal lymphadenopathy and lymphoma. Reconsult and hematology. However GI and surgical consult has been called already. With pain management. Gentle hydration Labs and medication were reviewed.. Continue same treatment. Continue with symptomatic treatment. Resume home medication. Monitor lytes and vitals. DVT and GI prophylaxis. Further recommendations of the clinical course of the patient DVT prophylaxis: Subcutaneous heparin GI Prophylaxis: Pepcid PT/OT: Pending Prognosis is guarded Dr. Arias and his team will resume the care of the patient tomorrow
[2018-09-26] MEDS: MORPHINE SULFATE 2 MG/ML SYRINGE IVP PRN (13:55)
[2018-09-26] MEDS: ONDANSETRON 4 MG/2 ML VIAL IVP PRN (13:56)
[2018-09-26] MEDS ORDERED: CLOTRIMAZOLE TROCHE 10 MG TROCHE MUCOUS MEM SCH (16:00)
[2018-09-26] MEDS ORDERED: MD COMMUNICATION TO PHARMACY 1 EACH MISC PO PRN (16:13)
--- NOTE | 2018-09-26 16:27 | P.GSCN ---
History of Present Illness Consult date: 09/26/18 History of present illness: CHIEF COMPLAINT: Abdominal pain HISTORY OF PRESENT ILLNESS: The patient is an 83-year-old female with recent history of high-grade lymphoma diagnosis less than 1 month ago. She reports in the last 2-3 days having severe constipation with ongoing abdominal pain of the lower abdomen. She had taken cathartics including laxatives, smooth move tea, prune juice without any bowel movement. She is passing decreased amount of flatus. Pain is crampy in nature. She is pending a Mediport placement to address her high-grade lymphoma. She denies any alleviating factors. She reports moderate to severe crampy bilateral lower abdominal pain. PAST MEDICAL HISTORY: See list. PAST SURGICAL HISTORY: See list. MEDICATIONS: See list. ALLERGIES: See list. SOCIAL HISTORY: No illicit drug use FAMILY HISTORY: No reports of Crohn's disease or inflammatory bowel disease REVIEW OF ORGAN SYSTEMS: CONSTITUTIONAL: No fevers or chills. Has recent weight loss. EYES: Denies any trouble with vision. Wears glasses. HEENT: No difficulties with hearing. No nosebleeds. No difficulty swallowing. RESPIRATORY: Denies pneumonia. Denies any troubles with breathing or dyspnea on exertion. CARDIOVASCULAR: Denies any chest pain, palpitations, or recent heart attacks. GASTROINTESTINAL: Resolved gastroesophageal reflux disease and dysphagia following hiatal hernia repair 8 months ago. History of chronic constipation. GENITOURINARY: Denies any blood in urine or increased urinary frequency. NEUROLOGICAL: Denies any numbness or tingling along the distal extremities. No seizure disorders or headaches. MUSCULOSKELETAL: Has back pain, stiffness or joint arthritis. SKIN: No current skin cancer. No rash. PSYCHIATRIC: Denies current depression or suicidal thoughts. ENDOCRINE: Has thyroid disorders. Denies any blood sugar glucose intolerance. HEME/LYMPHATIC: New diagnosis of high-grade lymphoma. No recent deep venous thrombosis. ALLERGY/IMMUNOLOGY: No immunoglobulin therapy. No immune deficiencies. BREAST: History of breast cancer status post mastectomy, left side. PHYSICAL EXAM: VITALS: Reviewed CONSTITUTIONAL: Well developed and in no acute distress. EYES: Conjuctivae with sclera icterus.Extraocular movements grossly intact. HEAD, EARS, NOSE, THROAT: Moist buccal mucosa. Head is atraumatic, normocephalic. Hears conversational speech. No nasal drainage. NECK: Supple. No thyromegaly. RESPIRATORY: Non-labored respirations and equal bilateral excursions. No gross wheezes. CARDIOVASCULAR: Regular rate and rhythm. Extremities without moderate edema. Palpable 2+ radial pulses. ABDOMEN: Soft. Tender bilateral lower abdomen. No peritonitis. LYMPH: No neck lymphadenopathy. No axillary lymphadenopathy. MUSCULOSKELETAL: No clubbing cyanosis or edema. SKIN: Warm and well perfused with good skin turgor. NEUROLOGIC: Cranial nerves I through XII grossly intact. Sensation upper and extremities intact. No focal or lateralizing signs. PSYCH: Appropriate affect. Alert and oriented to person, place and time. Displays appropriate insight. CLINCAL LABS: Reviewed RADIOLOGY: Report reviewed IMAGING: Independently reviewed a CT of the abdomen and pelvis including PET scan consistent with diffuse lymphoma, high-grade. Retained stool along the rectum sigmoid colon and cecum. ASSESSMENT: 1. Bilateral lower abdominal pain 2. High-grade diffuse lymphoma, new diagnosis 3. Need for chemotherapeutic access 4. History of chronic constipation PLAN: 1. Recommend soapsuds enema. 2. IV fluid hydration for leukocytosis and dehydration. 3. She is scheduled for Mediport placement in 2 weeks however given the severity of her lymphoma, we'll arrange for immediate port placement during current admission. Thank you for this kind consultation. Past Medical History Past Medical History: Atrial Fibrillation, Cancer, COPD, GERD/Reflux, Hearing Disorder / Deafness, Hyperlipidemia, Musculoskeletal Disorder, Osteoarthritis (OA), Pneumonia, Thyroid Disorder Additional Past Medical History / Comment(s): Constipation, bowel adhesions. Hx bowel obstruction, right breast cancer-1997 no chemo or radiation, melanoma face 2014, osteoporosis, pneumonia Aug 2016, Lymphoma History of Any Multi-Drug Resistant Organisms: MRSA Year Discovered:: 2010? MDRO Source:: post surgical wound from bowel resection Past Surgical History: Appendectomy, Bowel Resection, Breast Surgery, Cholecystectomy, Hysterectomy Additional Past Surgical History / Comment(s): Bilateral cataracts, right mastectomy. Past Anesthesia/Blood Transfusion Reactions: No Reported Reaction Additional Past Anesthesia/Blood Transfusion Reaction / Comm: no hx blood transfusion Past Psychological History: No Psychological Hx Reported Smoking Status: Never smoker Past Alcohol Use History: None Reported Past Drug Use History: None Reported - Past Family History Sister(s) Family Medical History: Cancer, CVA/TIA Additional Family Medical History / Comment(s): breast Cancer in 3 sisters Son(s) Family Medical History: Cancer, Thyroid Disorder Additional Family Medical History / Comment(s): LYMPHOMA, Congential heart problem. Daughter(s) Family Medical History: Cancer Additional Family Medical History / Comment(s): colon cancer Brother(s) Family Medical History: Cancer Additional Family Medical History / Comment(s): ONE BROTHER BLADDER CA, ONE WITH LUNG CA Mother Family Medical History: Cancer Additional Family Medical History / Comment(s): Stomach cancer Father Family Medical History: CVA/TIA Medications and Allergies Home Medications Medication Instructions Recorded Confirmed Type Levothyroxine Sodium [Synthroid] 88 mcg PO QAM 04/28/17 09/26/18 History traMADol HCL [Ultram] 50 mg PO Q6H PRN 09/14/18 09/26/18 History Acetaminophen [Tylenol Extra 500 mg PO TID PRN 09/26/18 09/26/18 History Strength] Allergies Allergy/AdvReac Type Severity Reaction Status Date / Time Iodinated Contrast- Oral and Allergy Anaphylaxis Verified 09/26/18 07:40 IV Dye [Iodinated Contrast Media - IV Dye] atorvastatin calcium AdvReac Nausea Verified 09/26/18 07:40 [From Lipitor] celecoxib [From Celebrex] AdvReac Nausea Verified 09/26/18 07:40 cephalexin [From Keflex] AdvReac Unknown Verified 09/26/18 07:40 influenza virus vaccine, AdvReac Nausea & Verified 09/26/18 07:40 specific Vomiting & [influenza virus Diarrhea,high vacc,specific] fever Surgical - Exam Vital Signs Temp Pulse Resp BP Pulse Ox 97.9 F 93 20 121/72 95 09/26/18 06:47 09/26/18 06:47 09/26/18 06:47 09/26/18 06:47 09/26/18 06:47 Results - Labs 09/26/18 07:40 09/26/18 07:40 Abnormal Lab Results - Last 24 Hours (Table) 09/26/18 09/26/18 09/26/18 Range/Units 07:40 07:40 10:02 WBC 11.1 H (3.8-10.6) k/uL Hgb 10.8 L (11.4-16.0) gm/dL Neutrophils # 9.4 H (1.3-7.7) k/uL Lymphocytes # 0.8 L (1.0-4.8) k/uL Sodium 135 L (137-145) mmol/L Glucose 106 H (74-99) mg/dL Calcium 11.5 H (8.4-10.2) mg/dL Total Protein 5.6 L (6.3-8.2) g/dL Albumin 2.8 L (3.5-5.0) g/dL Urine WBC >5 H (0-5) /hpf Urine WBC Clumps Rare H (None) /hpf Amorphous Sediment Moderate H (None) /hpf Urine Bacteria Many H (None) /hpf Diabetes panel 09/26/18 Range/Units 07:40 Sodium 135 L (137-145) mmol/L Potassium 3.8 (3.5-5.1) mmol/L Chloride 99 (98-107) mmol/L Carbon Dioxide 29 (22-30) mmol/L BUN 13 (7-17) mg/dL Creatinine 0.91 (0.52-1.04) mg/dL Glucose 106 H (74-99) mg/dL Calcium 11.5 H (8.4-10.2) mg/dL AST 26 (14-36) U/L ALT 21 (9-52) U/L Alkaline Phosphatase 93 (38-126) U/L Total Protein 5.6 L (6.3-8.2) g/dL Albumin 2.8 L (3.5-5.0) g/dL Calcium panel 09/26/18 Range/Units 07:40 Calcium 11.5 H (8.4-10.2) mg/dL Albumin 2.8 L (3.5-5.0) g/dL Pituitary panel 09/26/18 Range/Units 07:40 Sodium 135 L (137-145) mmol/L Potassium 3.8 (3.5-5.1) mmol/L Chloride 99 (98-107) mmol/L Carbon Dioxide 29 (22-30) mmol/L BUN 13 (7-17) mg/dL Creatinine 0.91 (0.52-1.04) mg/dL Glucose 106 H (74-99) mg/dL Calcium 11.5 H (8.4-10.2) mg/dL Adrenal panel 09/26/18 Range/Units 07:40 Sodium 135 L (137-145) mmol/L Potassium 3.8 (3.5-5.1) mmol/L Chloride 99 (98-107) mmol/L Carbon Dioxide 29 (22-30) mmol/L BUN 13 (7-17) mg/dL Creatinine 0.91 (0.52-1.04) mg/dL Glucose 106 H (74-99) mg/dL Calcium 11.5 H (8.4-10.2) mg/dL Total Bilirubin 0.8 (0.2-1.3) mg/dL AST 26 (14-36) U/L ALT 21 (9-52) U/L Alkaline Phosphatase 93 (38-126) U/L Total Protein 5.6 L (6.3-8.2) g/dL Albumin 2.8 L (3.5-5.0) g/dL Assessment and Plan (1) High grade malignant lymphoma Current Visit: Yes Status: Acute Code(s): C85.90 - NON-HODGKIN LYMPHOMA, UNSPECIFIED, UNSPECIFIED SITE SNOMED Code(s): 586730972 (2) Lower abdominal pain Current Visit: Yes Status: Acute Code(s): R10.30 - LOWER ABDOMINAL PAIN, UNSPECIFIED SNOMED Code(s): 52785859 (3) Leukocytosis Current Visit: Yes Status: Acute Code(s): D72.829 - ELEVATED WHITE BLOOD CELL COUNT, UNSPECIFIED SNOMED Code(s): 708266111
[2018-09-26] MEDS ORDERED: SODIUM CHLORIDE 0.9% 1,000 ML IV ONE (16:28)
[2018-09-26] MEDS: NYSTATIN 100000 UNIT/ML PO SCH ×2 (16:54→20:18)
[2018-09-26] MEDS: FAMOTIDINE 20 MG/2 ML VIAL IV SCH (20:16)
[2018-09-27] MEDS: NYSTATIN 100000 UNIT/ML PO SCH ×6 (00:44→23:56)
[2018-09-27] MEDS: SODIUM CHLORIDE 0.9% 1,000 ML IV SCH ×2 (00:44→21:26)
[2018-09-27] MEDS: HEPARIN SODIUM,PORCINE 5,000 UNIT/ML 1 ML VIAL SQ SCH ×3 (00:44→21:27)
[2018-09-27] MEDS: LEVOTHYROXINE 88 MCG TAB PO SCH (05:51)
[2018-09-27 08:20] LABS: Basophils # (A) 0.1 k/uL (0-0.2); Basophils % (A) 1 %; Eosinophils # (A) 0.2 k/uL (0-0.7); Eosinophils % (A) 3 %; HCT 33.5 % (34.0-46.0); HGB 10.4 gm/dL (11.4-16.0); Hypochromasia Marked; Lymphocytes # (A) 0.8 k/uL (1.0-4.8); Lymphocytes % (A) 10 %; MCH 26.8 pg (25.0-35.0); MCHC 30.9 g/dL (31.0-37.0); MCV 86.6 fL (80.0-100.0); Mean Platelet Volume 7.2; Monocytes # (A) 0.5 k/uL (0-1.0); Monocytes % (A) 6 %; Neutrophils # (A) 6.8 k/uL (1.3-7.7); Neutrophils % (A) 80 %; Platelet Count 282 k/uL (150-450); RBC 3.87 m/uL (3.80-5.40); RDW 13.9 % (11.5-15.5); WBC 8.6 k/uL (3.8-10.6)
[2018-09-27 08:33] LABS: Calcium 11.1 mg/dL (8.4-10.2); Potassium 4.2 mmol/L (3.5-5.1)
--- NOTE | 2018-09-27 08:33 | P.PN ---
Progress Note - Text Progress Note Date: 09/27/18 I am out of town for the week. Dr. Scanlon to take over care. Nursing team made aware.
[2018-09-27] MEDS: FAMOTIDINE 20 MG/2 ML VIAL IV SCH (08:37)
[2018-09-27] MEDS: MORPHINE SULFATE 2 MG/ML SYRINGE IVP PRN ×3 (08:38→21:26)
[2018-09-27] MEDS ORDERED: PANTOPRAZOLE 40 MG/10 ML VIAL IV SCH (09:00)
[2018-09-27] MEDS ORDERED: IV FLUID CONTINUATION 1,000 ML IV ONE (10:28)
--- NOTE | 2018-09-27 10:56 | P.CONS ---
History of Present Illness - Reason for Consult Consult date: 09/27/18 lymphoma Requesting physician: Saturnino Huff - Chief Complaint abd pain - History of Present Illness Mrs. Dudley is a very pleasant female pt of Dr. Kennedy, treated by Dr. Grace for Non-Hodgkin's lymphoma-Grade I-II Follicular-Jun 2008 involving R fallopian tube, treated with surgery alone (Dr. Galvez) resection back in 2007. She has a remote history of a stage II breast cancer diagnosed in December 1999, treated with R mastectomy, no chemotherapy, received Arimidex X 5 years, last visit 2011. She also had a basal cell carcinoma extending to the margin of rese ction in 2018. 09/16/18 she presented to PCP Dr. Zuleima Arias, with rapidly progressive painful swelling of L axilla X 2 months, core biopsy 08/18/18 was suggestive of high-grade lymphoma, incisional biopsy on 09/07/18 revealed DLBCL, BCL6+. She was to have port placed in the near future to begin R-CHOP in the outpatient setting. She had concerns about "twisted bowel", but, it was clarified that the lymphoma was the more likely cause of her symptoms and she needed to start treatment. She was positive for B symptoms of night sweats and weight loss of 25lbs in last 4 months. She came to the hospital with c/o of abd pain and constipation, the pain is constant, wraps around the lower abd to the back, her right axilla has adenopathy that is painful, denies nausea, dysphagia, dysuria, bleeding or lower extremity swelling. Review of Systems 14 point ROS is negative except as stated in HPI Past Medical History Past Medical History: Atrial Fibrillation, Cancer, COPD, GERD/Reflux, Hearing Disorder / Deafness, Hyperlipidemia, Musculoskeletal Disorder, Osteoarthritis (OA), Pneumonia, Thyroid Disorder Additional Past Medical History / Comment(s): Constipation, bowel adhesions. Hx bowel obstruction, right breast cancer-1997 no chemo or radiation, melanoma face 2014, osteoporosis, pneumonia Aug 2016, Lymphoma History of Any Multi-Drug Resistant Organisms: MRSA Year Discovered:: 2010? MDRO Source:: post surgical wound from bowel resection Past Surgical History: Appendectomy, Bowel Resection, Breast Surgery, Cholecystectomy, Hysterectomy Additional Past Surgical History / Comment(s): Bilateral cataracts, right mastectomy. Past Anesthesia/Blood Transfusion Reactions: No Reported Reaction Additional Past Anesthesia/Blood Transfusion Reaction / Comm: no hx blood transfusion Past Psychological History: No Psychological Hx Reported Smoking Status: Never smoker Past Alcohol Use History: None Reported Past Drug Use History: None Reported - Past Family History Sister(s) Family Medical History: Cancer, CVA/TIA Additional Family Medical History / Comment(s): breast Cancer in 3 sisters Son(s) Family Medical History: Cancer, Thyroid Disorder Additional Family Medical History / Comment(s): LYMPHOMA, Congential heart problem. Daughter(s) Family Medical History: Cancer Additional Family Medical History / Comment(s): colon cancer Brother(s) Family Medical History: Cancer Additional Family Medical History / Comment(s): ONE BROTHER BLADDER CA, ONE WITH LUNG CA Mother Family Medical History: Cancer Additional Family Medical History / Comment(s): Stomach cancer Father Family Medical History: CVA/TIA Medications and Allergies Home Medications Medication Instructions Recorded Confirmed Type Levothyroxine Sodium [Synthroid] 88 mcg PO QAM 04/28/17 09/26/18 History traMADol HCL [Ultram] 50 mg PO Q6H PRN 09/14/18 09/26/18 History Acetaminophen [Tylenol Extra 500 mg PO TID PRN 09/26/18 09/26/18 History Strength] Allergies Allergy/AdvReac Type Severity Reaction Status Date / Time Iodinated Contrast- Oral and Allergy Anaphylaxis Verified 09/26/18 07:40 IV Dye [Iodinated Contrast Media - IV Dye] atorvastatin calcium AdvReac Nausea Verified 09/26/18 07:40 [From Lipitor] celecoxib [From Celebrex] AdvReac Nausea Verified 09/26/18 07:40 cephalexin [From Keflex] AdvReac Unknown Verified 09/26/18 07:40 influenza virus vaccine, AdvReac Nausea & Verified 09/26/18 07:40 specific Vomiting & [influenza virus Diarrhea,high vacc,specific] fever Physical Exam Vitals: Vital Signs Temp Pulse Pulse Resp BP Pulse Ox 09/27/18 10:17 97.9 F 79 20 141/65 94 L 09/27/18 06:01 97.6 F 76 18 135/64 94 L 09/26/18 21:22 98.9 F 76 17 134/66 96 09/26/18 20:07 16 09/26/18 16:30 98.0 F 74 17 139/75 93 L 09/26/18 14:44 73 16 09/26/18 12:45 97.8 F 73 16 142/60 97 Intake and Output 09/26/18 09/27/18 09/27/18 22:59 06:59 14:59 Intake Total 600 Balance 600 Intake: Intake, IV Titration 400 Amount Sodium Chloride 0.9% 1, 400 000 ml @ 50 mls/hr IV . Q20H [facility] Rx#:[id number] Oral 200 Other: Voiding Method Toilet # Voids 1 1 # Bowel Movements 1 - Constitutional General appearance: cooperative, no acute distress, thin - EENT Eyes: anicteric sclerae, EOMI ENT: hearing grossly normal, normal oropharynx - Neck Neck: lymphadenopathy - Respiratory Respiratory: bilateral: CTA - Cardiovascular Heart sounds: normal: S1, S2 - Gastrointestinal General gastrointestinal: no absent bowel sounds, no decreased bowel sounds, no distended, no hepatomegaly, no hyperactive bowel sounds, normal bowel sounds, no organomegaly, no rigid, no scaphoid, soft, no splenomegaly, tenderness, no um bilical hernia, no ventral hernia Localized gastrointestinal: tender: RLQ, LLQ, epigastric periumbilical, suprabubic - Integumentary Integumentary: pale - Neurologic Neurologic: CNII-XII intact - Musculoskeletal Musculoskeletal: generalized weakness, strength equal bilaterally - Psychiatric Psychiatric: A&O x's 3, appropriate affect, intact judgment & insight Results CBC & Chem 7: 09/27/18 07:45 09/27/18 07:45 Labs: Abnormal Lab Results - Last 24 Hours (Table) 09/26/18 09/27/18 09/27/18 Range/Units 10:02 07:45 07:45 Hgb 10.4 L (11.4-16.0) gm/dL Hct 33.5 L (34.0-46.0) % MCHC 30.9 L (31.0-37.0) g/dL Lymphocytes # 0.8 L (1.0-4.8) k/uL Calcium 11.1 H (8.4-10.2) mg/dL Urine WBC >5 H (0-5) /hpf Urine WBC Clumps Rare H (None) /hpf Amorphous Sediment Moderate H (None) /hpf Urine Bacteria Many H (None) /hpf Microbiology - Last 24 Hours (Table) 09/26/18 10:02 Urine Culture - Preliminary Urine,Voided Abdominal x-ray: report reviewed CT scan - abdomen: report reviewed CT scan - pelvis: report reviewed Assessment and Plan (1) Abdominal pain Narrative/Plan: Likely r/t retroperitoneal adenopathy and constipation. Pain medication titration Aggressive bowel mgmt Current Visit: Yes Status: Acute Priority: High Code(s): R10.9 - UNSPECIFIED ABDOMINAL PAIN SNOMED Code(s): 22735937 (2) High grade malignant lymphoma Narrative/Plan: Pt is going to have her port placed while inpatient so she can begin treatment soon. Current Visit: Yes Status: Acute Priority: High Code(s): C85.90 - NON- HODGKIN LYMPHOMA, UNSPECIFIED, UNSPECIFIED SITE SNOMED Code(s): 615994223 Plan: Attests: I have performed H&P and developed impression and plan of care of patient, discussed with dictator. I agree with dictated note, documented as a scribe.
--- NOTE | 2018-09-27 11:05 | P.PN ---
Progress Note - Text Progress Note Date: 09/27/18 The patient will undergo placement of Port-A-Cath today. The risks and benefits were discussed with the patient and her family.
[2018-09-27] MEDS ORDERED: fentaNYL (PF) 50 MCG/ML 2 ML AMP ONE (11:20)
[2018-09-27] MEDS ORDERED: PROPOFOL 10 MG/ML 20 ML VIAL IV ONE (11:20)
[2018-09-27] MEDS ORDERED: LACTATED RINGERS 1,000 ML IV ONE (11:23)
[2018-09-27] MEDS ORDERED: BUPIVACAIN-EPI 0.5%-1:200,000 30 ML VIAL SQ ONE ×2 (11:41)
[2018-09-27] MEDS ORDERED: HEPARIN SODIUM,PORCINE 100 UNIT/ML 5 ML VIAL IV ONE (11:50)
--- NOTE | 2018-09-27 12:06 | P.OP ---
Date of Procedure: 09/27/18 Preoperative Diagnosis: Lymphoma Postoperative Diagnosis: Lymphoma Procedure(s) Performed: Insertion of left subclavian Port-A-Cath Anesthesia: MAC Surgeon: Jorge Scanlon Estimated Blood Loss (ml): 10 Pathology: none sent Condition: stable Disposition: PACU Description of Procedure: ThPROCEDURE: The patient was placed on the operating table in the supine position. She received MAC anesthetic. The [left] chest was prepped and draped in the usual sterile fashion. The skin underneath the right clavicle was anesthetized with 1% Xylocaine and using Seldinger technique, the right subclavian vein was cannulized. The wire was placed through the needle and positioned under fluoroscopy. Next, the needle was removed and the port site was anesthetized with 1% Xylocaine. Skin was incised with #15 blade and port pocket was made using blunt and sharp dissection. Following this the catheter was attached to the sport and the port was flushed. The port was positioned into the pocket site and was secured with 3-0 Vicryl suture. The catheter was then brought out through the wire site and then the dilator sheath was placed over the wire and the dilator and the wire were removed. The catheter was placed through the sheath and the sheath was removed. The port was flushed with hep-lock solution. Skin was closed with interrupted 3-0 Vicryl sutures. Steri-Strips were applied. The patient tolerated the procedure well. The patient was sent to recovery room for chest x-ray after the procedure.
--- NOTE | 2018-09-27 13:37 | FL ---
Fluoroscopy INDICATION: Pain, line placement FINDINGS: Fluoroscopy time: 8 seconds. Images obtained: 1. IMPRESSIONS: 1. Documentation of fluoroscopy.
[2018-09-27 14:50] VITALS: BMI 21.1
--- NOTE | 2018-09-27 17:48 | P.PN ---
Subjective Patient had placement of Port-A-Cath. Continues to complain of abdominal pain. Patient had consultation with oncology Objective - Vital Signs Vital signs: Vital Signs Temp 97.9 F 09/27/18 13:32 Pulse 94 09/27/18 13:32 Resp 16 09/27/18 13:32 BP 108/75 09/27/18 13:32 Pulse Ox 94 L 09/27/18 13:32 Intake & Output 09/26/18 09/27/18 09/27/18 18:59 06:59 18:59 Intake Total 285 533 3680 Output Total 10 Balance 217 685 5053 Weight 55.792 kg Intake: IV 450 Intake, IV Titration 200 400 400 Amount Sodium Chloride 0.9% 1, 200 400 400 000 ml @ 50 mls/hr IV . Q20H [facility] Rx#:[id number] Oral 0 200 300 Output: Estimated Blood Loss 10 Other: Voiding Method Toilet Toilet Toilet # Voids 1 # Bowel Movements 1 - Constitutional General appearance: Present: mild distress, thin - EENT Ears: bilateral: normal - Neck Neck: Present: lymphadenopathy - Respiratory Respiratory: bilateral: CTA - Cardiovascular Rhythm: irregularly irregular - Gastrointestinal General gastrointestinal: Present: soft Localized gastrointestinal: tender: diffuse - Integumentary Integumentary: Present: normal - Neurologic Neurologic: Present: CNII-XII intact - Musculoskeletal Musculoskeletal: Present: generalized weakness - Psychiatric Psychiatric: Present: A&O x's 3, appropriate affect, intact judgment & insight - Labs CBC & Chem 7: 09/27/18 07:45 09/27/18 07:45 Labs: Abnormal Lab Results - Last 24 Hours (Table) 09/27/18 09/27/18 Range/Units 07:45 07:45 Hgb 10.4 L (11.4-16.0) gm/dL Hct 33.5 L (34.0-46.0) % MCHC 30.9 L (31.0-37.0) g/dL Lymphocytes # 0.8 L (1.0-4.8) k/uL Calcium 11.1 H (8.4-10.2) mg/dL Microbiology - Last 24 Hours (Table) 09/26/18 10:02 Urine Culture - Preliminary Urine,Voided - Imaging and Cardiology CT scan - abdomen: report reviewed CT scan - chest: report reviewed Assessment and Plan Plan: Assessment Abdominal pain Worsening retroperitoneal lymphadenopathy and splenomegaly new diagnosis of lymphoma Chronic atrial fibrillation EKG noted sinus rhythm with PACs GERD Heart of hearing Osteoarthritis Hyperlipidemia Chronic constipation UTI awaiting cultures Plan Continue consultation with Dr. Lara and oncology
--- NOTE | 2018-09-27 20:36 | P.PN ---
Subjective Progress Note Date: 09/27/18 Principal diagnosis: Abdominal pain Attempted to see the patient on two occasions but she was out of her room undergoing a procedure. We will see the patient tomorrow. Objective - Vital Signs Vital signs: Vital Signs Temp 97.9 F 09/27/18 13:32 Pulse 94 09/27/18 13:32 Resp 16 09/27/18 13:32 BP 108/75 09/27/18 13:32 Pulse Ox 94 L 09/27/18 13:32 Intake & Output 09/27/18 09/27/18 09/28/18 06:59 18:59 06:59 Intake Total 600 1150 Output Total 10 Balance 600 1140 Weight 55.792 kg Intake: IV 450 Intake, IV Titration 400 400 Amount Sodium Chloride 0.9% 1, 400 400 000 ml @ 50 mls/hr IV . Q20H [facility] Rx#:[id number] Oral 200 300 Output: Estimated Blood Loss 10 Other: Voiding Method Toilet Toilet # Voids 1 - Labs CBC & Chem 7: 09/27/18 07:45 09/27/18 07:45 Labs: Abnormal Lab Results - Last 24 Hours (Table) 09/27/18 09/27/18 Range/Units 07:45 07:45 Hgb 10.4 L (11.4-16.0) gm/dL Hct 33.5 L (34.0-46.0) % MCHC 30.9 L (31.0-37.0) g/dL Lymphocytes # 0.8 L (1.0-4.8) k/uL Calcium 11.1 H (8.4-10.2) mg/dL Microbiology - Last 24 Hours (Table) 09/26/18 10:02 Urine Culture - Preliminary Urine,Voided Group D Enterococcus
[2018-09-27] MEDS: FAMOTIDINE 20 MG TAB PO SCH (21:26)
[2018-09-28] MEDS: MORPHINE SULFATE 2 MG/ML SYRINGE IVP PRN ×2 (03:31→10:08)
[2018-09-28] MEDS: NYSTATIN 100000 UNIT/ML PO SCH ×4 (03:31→20:49)
[2018-09-28] MEDS: POLYETHYLENE GLYCOL 3350 17 GM POWD.PACK PO SCH (08:22)
[2018-09-28] MEDS: HEPARIN SODIUM,PORCINE 5,000 UNIT/ML 1 ML VIAL SQ SCH ×2 (08:22→20:49)
[2018-09-28] MEDS: LEVOTHYROXINE 88 MCG TAB PO SCH (08:22)
[2018-09-28] MEDS: FAMOTIDINE 20 MG TAB PO SCH ×2 (08:22→20:49)
[2018-09-28 08:56] LABS: Basophils % (A) 0 %; Eosinophils # (A) 0.2 k/uL (0-0.7); Eosinophils % (A) 2 %; HCT 36.9 % (34.0-46.0); HGB 11.1 gm/dL (11.4-16.0); Hypochromasia Marked; Lymphocytes % (A) 11 %; MCH 26.2 pg (25.0-35.0); MCHC 30.1 g/dL (31.0-37.0); Mean Platelet Volume 7.6; Monocytes # (A) 0.5 k/uL (0-1.0); Monocytes % (A) 5 %; Neutrophils # (A) 7.6 k/uL (1.3-7.7); Neutrophils % (A) 80 %; Platelet Count 321 k/uL (150-450); RBC 4.24 m/uL (3.80-5.40); RDW 13.9 % (11.5-15.5); WBC 9.6 k/uL (3.8-10.6)
[2018-09-28 09:21] LABS: Calcium 11.3 mg/dL (8.4-10.2); Potassium 4.1 mmol/L (3.5-5.1)
[2018-09-28] MEDS ORDERED: SENNOSIDES 8.6 MG TAB PO SCH (10:30)
--- NOTE | 2018-09-28 10:46 | P.PN ---
Subjective Progress Note Date: 09/28/18 Principal diagnosis: abd pain, lymphoma In f/u today pt has persistent lower abd pain, managed with current analgesic regimen, no BM since stool she had with enema on admit, appetite is fair, she has early satiety. Port has been placed Objective - Vital Signs Vital signs: Vital Signs Temp 98.1 F 09/28/18 05:49 Pulse 77 09/28/18 05:49 Resp 16 09/28/18 05:49 BP 106/66 09/28/18 05:49 Pulse Ox 97 09/28/18 05:49 Intake & Output 09/27/18 09/28/18 09/28/18 18:59 06:59 18:59 Intake Total 1150 1000 Output Total 10 Balance 1140 1000 Weight 55.792 kg Intake: IV 450 Intake, IV Titration 400 700 Amount Sodium Chloride 0.9% 1, 400 700 000 ml @ 50 mls/hr IV . Q20H [facility] Rx#:[id number] Oral 300 300 Output: Estimated Blood Loss 10 Other: Voiding Method Toilet Toilet # Voids 2 - Constitutional General appearance: Present: cooperative, no acute distress, thin - EENT Eyes: Present: anicteric sclerae, EOMI ENT: Present: hearing grossly normal - Neck Neck: Present: lymphadenopathy - Respiratory Respiratory: bilateral: CTA - Cardiovascular Heart sounds: normal: S1, S2 - Gastrointestinal General gastrointestinal: Present: soft, tenderness - Integumentary Integumentary: Present: pale - Neurologic Neurologic: Present: CNII-XII intact - Musculoskeletal Musculoskeletal: Present: generalized weakness, strength equal bilaterally - Psychiatric Psychiatric: Present: A&O x's 3, appropriate affect, intact judgment & insight - Labs CBC & Chem 7: 09/28/18 08:18 09/28/18 08:18 Labs: Abnormal Lab Results - Last 24 Hours (Table) 09/28/18 09/28/18 Range/Units 08:18 08:18 Hgb 11.1 L (11.4-16.0) gm/dL MCHC 30.1 L (31.0-37.0) g/dL Carbon Dioxide 32 H (22-30) mmol/L Creatinine 1.09 H (0.52-1.04) mg/dL Glucose 115 H (74-99) mg/dL Calcium 11.3 H (8.4-10.2) mg/dL Microbiology - Last 24 Hours (Table) 09/26/18 10:02 Urine Culture - Preliminary Urine,Voided Group D Enterococcus Assessment and Plan (1) Abdominal pain Narrative/Plan: Converted to oral pain medication today. Nursing will monitor and report effectiveness Aggressive bowel regimen ordered (miralax daily with senna BID) Current Visit: Yes Status: Acute Priority: High Code(s): R10.9 - UNSPECIFIED ABDOMINAL PAIN SNOMED Code(s): 73095965 (2) High grade malignant lymphoma Narrative/Plan: Port has been placed. Recommendation is to begin treatment ALLISON outpatient. It was clarified again with pt and family at bedside that much of the cause of her abd pain is from adenopathy. Hoping to have constipation under control and pain managed on orals in the next 24 hours so pt can be discharged Current Visit: Yes Status: Acute Priority: High Code(s): C85.90 - NON- HODGKIN LYMPHOMA, UNSPECIFIED, UNSPECIFIED SITE SNOMED Code(s): 030490119 (3) Early satiety Narrative/Plan: Reviewed with pt that her early satiety is r/t lymphoma and constipation. She is to start chemo as soon as discharged and she is on medications for relief of constipation. Pt and family was educated on small, frequent meals as a strategy for relief of early satiety. Also, recommended plenty of fluids, using liquid nutritional supplements Current Visit: Yes Status: Acute Priority: Medium Code(s): R68.81 - EARLY SATIETY SNOMED Code(s): 563264380
--- NOTE | 2018-09-28 11:50 | P.PN ---
Subjective Progress Note Date: 09/28/18 CHIEF COMPLAINT: Lymphoma HISTORY OF PRESENT ILLNESS: 83-year-old female who is status post insertion of left subclavian Port-A-Cath secondary to lymphoma. POD #1. Patient examined at the bedside. Patient reports mild tenderness near surgical site. PHYSICAL EXAM: VITAL SIGNS: Reviewed. GENERAL: Well-developed in no acute distress. HEENT: No sclera icterus. Extraocular movements grossly intact. Moist buccal mucosa. Head is atraumatic, normocephalic. ABDOMEN: Soft. Nondistended. Nontender. NEUROLOGIC: Alert and oriented. Cranial nerves II through XII grossly intact. SKIN: Port-A-Cath surgical site without drainage. No signs of infection. ASSESSMENT: 1. Lymphoma, status post left subclavian Port-A-Cath insertion PLAN: Patient is stable from a surgical standpoint. We will sign off. Patient is to follow-up with Dr. Scanlon in one week to assess surgical site. Nurse practitioner note has been reviewed by physician. Signing provider agrees with the documented findings, assessment, and plan of care. Objective - Vital Signs Vital signs: Vital Signs Temp 98.1 F 09/28/18 05:49 Pulse 77 09/28/18 05:49 Resp 16 09/28/18 05:49 BP 106/66 09/28/18 05:49 Pulse Ox 97 09/28/18 05:49 Intake & Output 09/27/18 09/28/18 09/28/18 18:59 06:59 18:59 Intake Total 1150 1000 Output Total 10 Balance 1140 1000 Weight 55.792 kg Intake: IV 450 Intake, IV Titration 400 700 Amount Sodium Chloride 0.9% 1, 400 700 000 ml @ 50 mls/hr IV . Q20H [facility] Rx#:[id number] Oral 300 300 Output: Estimated Blood Loss 10 Other: Voiding Method Toilet Toilet # Voids 2 - Labs CBC & Chem 7: 09/28/18 08:18 09/28/18 08:18 Labs: Abnormal Lab Results - Last 24 Hours (Table) 09/28/18 09/28/18 Range/Units 08:18 08:18 Hgb 11.1 L (11.4-16.0) gm/dL MCHC 30.1 L (31.0-37.0) g/dL Carbon Dioxide 32 H (22-30) mmol/L Creatinine 1.09 H (0.52-1.04) mg/dL Glucose 115 H (74-99) mg/dL Calcium 11.3 H (8.4-10.2) mg/dL Microbiology - Last 24 Hours (Table) 09/26/18 10:02 Urine Culture - Preliminary Urine,Voided Group D Enterococcus
--- NOTE | 2018-09-28 11:56 | P.PN ---
Subjective Patient resting in bed appears more comfortable than yesterday. His urinary tract infection enterococcus will be started on ampicillin. In continue with surgical consult and oncology. Has a Port-A-Cath in place plan is to start chemotherapy on discharge Objective - Vital Signs Vital signs: Vital Signs Temp 98.1 F 09/28/18 05:49 Pulse 77 09/28/18 05:49 Resp 16 09/28/18 05:49 BP 106/66 09/28/18 05:49 Pulse Ox 97 09/28/18 05:49 Intake & Output 09/27/18 09/28/18 09/28/18 18:59 06:59 18:59 Intake Total 1150 1000 Output Total 10 Balance 1140 1000 Weight 55.792 kg Intake: IV 450 Intake, IV Titration 400 700 Amount Sodium Chloride 0.9% 1, 400 700 000 ml @ 50 mls/hr IV . Q20H [facility] Rx#:[id number] Oral 300 300 Output: Estimated Blood Loss 10 Other: Voiding Method Toilet Toilet # Voids 2 - Constitutional General appearance: Present: mild distress - EENT Eyes: Present: PERRLA Ears: bilateral: normal - Neck Neck: Present: normal ROM - Respiratory Respiratory: bilateral: CTA - Cardiovascular Rhythm: regular - Gastrointestinal General gastrointestinal: Present: soft Localized gastrointestinal: tender: diffuse - Musculoskeletal Musculoskeletal: Present: generalized weakness - Psychiatric Psychiatric: Present: A&O x's 3, appropriate affect, intact judgment & insight - Labs CBC & Chem 7: 09/28/18 08:18 09/28/18 08:18 Labs: Abnormal Lab Results - Last 24 Hours (Table) 09/28/18 09/28/18 Range/Units 08:18 08:18 Hgb 11.1 L (11.4-16.0) gm/dL MCHC 30.1 L (31.0-37.0) g/dL Carbon Dioxide 32 H (22-30) mmol/L Creatinine 1.09 H (0.52-1.04) mg/dL Glucose 115 H (74-99) mg/dL Calcium 11.3 H (8.4-10.2) mg/dL Microbiology - Last 24 Hours (Table) 09/26/18 10:02 Urine Culture - Preliminary Urine,Voided Group D Enterococcus Assessment and Plan Plan: Assessment Abdominal pain secondary to lymphadenopathy Recent diagnosis of lymphoma History of chronic A. fib patient knows Kvng PACs History of GERD Chronic hearing Osteoarthritis Hyperlipidemia Constipation Urinary tract infection enterococcus group D \ Plan Continue consultation with oncology and gastroenterology Discharge home and then chemotherapy initiated
[2018-09-28] MEDS: AMPICILLIN 1,000 MG in SODIUM CHLORIDE 0.9% 50 ML IVPB SCH ×2 (13:02→18:45)
[2018-09-28] MEDS ORDERED: BISACODYL 10 MG SUPP RECTAL PRN (13:07)
[2018-09-28] MEDS ORDERED: BISACODYL 10 MG SUPP RECTAL STA (13:07)
--- NOTE | 2018-09-28 13:07 | P.CONS ---
History of Present Illness - Reason for Consult Consult date: 09/28/18 Abdominal pain Requesting physician: Rob Arias - Chief Complaint Abdominal pain - History of Present Illness 83-year-old female with a history of high-grade lymphoma recently diagnosed one month ago admitted with constipation diffuse abdominal discomfort in the lower a bdomen. Patient received enema with minimal improvement. Colonoscopy last fall to her memory unremarkable. Mediport inserted during this hospitalization. Denies hematemesis hematochezia melena. White count 9.6. Hemoglobin 11.1. Platelet 321. CT abdomen small amount of pelvic ascites. Small pericardial effusion. Small left pleural effusion. Diffuse retroperitoneal some mesenteric lymphadenopathy as well as pelvic site chain and left inguinal lymphadenopathy. Bulky spleen. Review of Systems ReConstitutional: Denies fever, chills, sweats, weight gain, or loss. HEENT: Negative for migraines, blurred vision or loss, earaches, drainage, t innitus, oral mucosal lesions, dysphagia, or odynophagia. CARDIAC: Negative for chest pain, arrhythmias, or palpitation. RESPIRATORY: Negative for shortness of breath, hemoptysis, cough, or sputum pro duction. GI: See HPI for pertinent findings. : Negative for hematuria, urgency, frequency, polyuria, or dysuria. GYNc: Negative vaginal discharge. MUSCULOSKELETAL: Negative for muscle aches, swelling, arthritis, and arthralgias. NEUROLOGIC: Negative for stroke or TIA. ENDOCRINE: Negative for thyroid problems. SKIN: Negative for rash or itching. PSYCHIATRIC: Negative history for depression and anxietymale Past Medical History Past Medical History: Atrial Fibrillation, Cancer, COPD, GERD/Reflux, Hearing Disorder / Deafness, Hyperlipidemia, Musculoskeletal Disorder, Osteoarthritis (OA), Pneumonia, Thyroid Disorder Additional Past Medical History / Comment(s): Constipation, bowel adhesions. Hx bowel obstruction, right breast cancer-1997 no chemo or radiation, melanoma face 2014, osteoporosis, pneumonia Aug 2016, Lymphoma History of Any Multi-Drug Resistant Organisms: MRSA Year Discovered:: 2010? MDRO Source:: post surgical wound from bowel resection Past Surgical History: Appendectomy, Bowel Resection, Breast Surgery, Cholecystectomy, Hysterectomy Additional Past Surgical History / Comment(s): Bilateral cataracts, right mastectomy. Past Anesthesia/Blood Transfusion Reactions: No Reported Reaction Additional Past Anesthesia/Blood Transfusion Reaction / Comm: no hx blood transfusion Past Psychological History: No Psychological Hx Reported Smoking Status: Never smoker Past Alcohol Use History: None Reported Past Drug Use History: None Reported - Past Family History Sister(s) Family Medical History: Cancer, CVA/TIA Additional Family Medical History / Comment(s): breast Cancer in 3 sisters Son(s) Family Medical History: Cancer, Thyroid Disorder Additional Family Medical History / Comment(s): LYMPHOMA, Congential heart problem. Daughter(s) Family Medical History: Cancer Additional Family Medical History / Comment(s): colon cancer Brother(s) Family Medical History: Cancer Additional Family Medical History / Comment(s): ONE BROTHER BLADDER CA, ONE WITH LUNG CA Mother Family Medical History: Cancer Additional Family Medical History / Comment(s): Stomach cancer Father Family Medical History: CVA/TIA Medications and Allergies Home Medications Medication Instructions Recorded Confirmed Type Levothyroxine Sodium [Synthroid] 88 mcg PO QAM 04/28/17 09/26/18 History traMADol HCL [Ultram] 50 mg PO Q6H PRN 09/14/18 09/26/18 History Acetaminophen [Tylenol Extra 500 mg PO TID PRN 09/26/18 09/26/18 History Strength] Lidocaine-Prilocaine Cream [Emla 1 applic TOPICAL DIRECTED PRN 09/28/18 Rx Cream 2.5%/2.5%] #30 gm Allergies Allergy/AdvReac Type Severity Reaction Status Date / Time Iodinated Contrast- Oral and Allergy Anaphylaxis Verified 09/26/18 07:40 IV Dye [Iodinated Contrast Media - IV Dye] atorvastatin calcium AdvReac Nausea Verified 09/26/18 07:40 [From Lipitor] celecoxib [From Celebrex] AdvReac Nausea Verified 09/26/18 07:40 cephalexin [From Keflex] AdvReac Unknown Verified 09/26/18 07:40 influenza virus vaccine, AdvReac Nausea & Verified 09/26/18 07:40 specific Vomiting & [influenza virus Diarrhea,high vacc,specific] fever Physical Exam Vitals: Vital Signs Temp Pulse Pulse Resp BP Pulse Ox 09/28/18 12:39 97.9 F 73 18 106/53 94 L 09/28/18 05:49 98.1 F 77 16 106/66 97 09/27/18 21:25 98.0 F 85 16 131/57 94 L 09/27/18 20:20 16 09/27/18 13:32 97.9 F 94 16 108/75 94 L Intake and Output 09/27/18 09/28/18 09/28/18 22:59 06:59 14:59 Intake Total 500 500 Balance 500 500 Intake: Intake, IV Titration 300 400 Amount Sodium Chloride 0.9% 1, 300 400 000 ml @ 50 mls/hr IV . Q20H [facility] Rx#:[id number] Oral 200 100 Other: Voiding Method Toilet # Voids 1 2 General appearance: The patient is alert, oriented, in no acute distress. HET: Head is normocephalic and atraumatic. Pupils are equal and reactive. Or opharynx is clear without lesions. Neck: Supple without lymphadenopathy. Trachea midline. Left anterior chest wall port without erythema or drainage Heart: S1 S2. Regular rate and rhythm. Lungs: No crackles or wheezes are heard. Abdomen: Soft, mildly bloated with mild tenderness across mid lower abdomen with bowel sounds. No peritoneal signs. No palpable organomegaly or masses. Extremities: Normal skin color and turgor. No cyanosis, rash, ulceration, clubbing, or edema. Radial and pedal pulses are 2/4 bilaterally. Neurological: No focal deficits. Strength and sensation are grossly intact. Results CBC & Chem 7: 09/28/18 08:18 09/28/18 08:18 Labs: Abnormal Lab Results - Last 24 Hours (Table) 09/28/18 09/28/18 Range/Units 08:18 08:18 Hgb 11.1 L (11.4-16.0) gm/dL MCHC 30.1 L (31.0-37.0) g/dL Carbon Dioxide 32 H (22-30) mmol/L Creatinine 1.09 H (0.52-1.04) mg/dL Glucose 115 H (74-99) mg/dL Calcium 11.3 H (8.4-10.2) mg/dL Microbiology - Last 24 Hours (Table) 09/26/18 10:02 Urine Culture - Preliminary Urine,Voided Group D Enterococcus CT scan - abdomen: report reviewed (Dr. Hartman) Assessment and Plan (1) Abdominal pain Narrative/Plan: 83-year-old female with a recent diagnosis of high-grade lymphoma underlying constipation Mediport placement completed. Colonoscopy reported last fall reported by patient within normal limits. Current Visit: Yes Status: Acute Priority: High Code(s): R10.9 - UNSPECIFIED ABDOMINAL PAIN SNOMED Code(s): 79467306 (2) Constipation Current Visit: Yes Status: Acute Code(s): K59.00 - CONSTIPATION, UNSPECIFIED SNOMED Code(s): 75370617 (3) High grade malignant lymphoma Current Visit: Yes Status: Acute Priority: High Code(s): C85.90 - NON- HODGKIN LYMPHOMA, UNSPECIFIED, UNSPECIFIED SITE SNOMED Code(s): 175770087 Plan: 1. Senokot 2 tablets twice a day. Continue MiraLAX 17 g daily. Dulcolax suppository 1 and as needed. We'll follow with you. Thank you for this kind referral and the opportunity to participate in the care of your patient. This consultation was discussed with Dr. Hartman. The impression and plan of care have been directed as dictated.
[2018-09-28] MEDS: HYDROcodone/APAP 10-325MG 1 EACH TAB PO PRN ×3 (13:11→23:10)
[2018-09-28] MEDS: SODIUM CHLORIDE 0.9% 1,000 ML IV SCH (17:14)
[2018-09-28] MEDS: SENNOSIDES 8.6 MG TAB PO SCH (20:49)
[2018-09-29] MEDS: NYSTATIN 100000 UNIT/ML PO SCH ×5 (00:41→21:25)
[2018-09-29] MEDS: AMPICILLIN 1,000 MG in SODIUM CHLORIDE 0.9% 50 ML IVPB SCH ×5 (00:47→23:58)
[2018-09-29] MEDS: HYDROcodone/APAP 10-325MG 1 EACH TAB PO PRN ×2 (03:16→15:27)
[2018-09-29] MEDS: POLYETHYLENE GLYCOL 3350 17 GM POWD.PACK PO SCH (08:27)
[2018-09-29] MEDS: FAMOTIDINE 20 MG TAB PO SCH ×2 (08:27→21:26)
[2018-09-29] MEDS: LEVOTHYROXINE 88 MCG TAB PO SCH (08:27)
[2018-09-29] MEDS: SENNOSIDES 8.6 MG TAB PO SCH ×2 (08:27→21:26)
[2018-09-29] MEDS: HEPARIN SODIUM,PORCINE 5,000 UNIT/ML 1 ML VIAL SQ SCH ×2 (08:27→21:26)
[2018-09-29] MEDS ORDERED: MAGNESIUM HYDROXIDE 2,400 MG/10 ML CUP PO PRN ×2 (10:02)
--- NOTE | 2018-09-29 10:03 | P.PN ---
Subjective Progress Note Date: 09/29/18 Principal diagnosis: Abdominal pain constipation high-grade lymphoma Abdominal pain improved. Passing flatus no bowel movements. Tolerating diet. No emesis. Objective - Vital Signs Vital signs: Vital Signs Temp 97.8 F 09/29/18 05:00 Pulse 101 H 09/29/18 05:00 Resp 16 09/29/18 05:00 BP 128/86 09/29/18 05:00 Pulse Ox 94 L 09/29/18 05:00 Intake & Output 09/28/18 09/29/18 09/29/18 18:59 06:59 18:59 Intake Total 400 1180 Balance 400 1180 Intake: Intake, IV Titration 400 Amount Sodium Chloride 0.9% 1, 400 000 ml @ 50 mls/hr IV . Q20H [facility] Rx#:[id number] Oral 1180 Other: Voiding Method Toilet # Voids 2 2 - Exam General appearance: The patient is alert, oriented, in no acute distress. HET: Head is normocephalic and atraumatic. Pupils are equal and reactive. Oropharynx is clear without lesions. Neck: Supple without lymphadenopathy. Trachea midline. Heart: S1 S2. Regular rate and rhythm. Lungs: No crackles or wheezes are heard. Abdomen: Soft, nontender, nondistended with bowel sounds. No peritoneal signs. No palpable organomegaly or masses. Extremities: Normal skin color and turgor. No cyanosis, rash, ulceration, clubbing, or edema. Radial and pedal pulses are 2/4 bilaterally. Neurological: No focal deficits. Strength and sensation are grossly intact. - Labs CBC & Chem 7: 09/28/18 08:18 09/28/18 08:18 Labs: Microbiology - Last 24 Hours (Table) 09/26/18 10:02 Urine Culture - Final Urine,Voided Enterococcus faecalis Assessment and Plan (1) Abdominal pain Narrative/Plan: 83-year-old female with a recent diagnosis of high-grade lymphoma underlying constipation Mediport placement completed. Colonoscopy reported last fall reported by patient within normal limits. Current Visit: Yes Status: Acute Priority: High Code(s): R10.9 - UNSPECIFIED ABDOMINAL PAIN SNOMED Code(s): 56963641 (2) Constipation Current Visit: Yes Status: Acute Code(s): K59.00 - CONSTIPATION, UNSPECIFIED SNOMED Code(s): 25249205 (3) High grade malignant lymphoma Current Visit: Yes Status: Acute Priority: High Code(s): C85.90 - NON- HODGKIN LYMPHOMA, UNSPECIFIED, UNSPECIFIED SITE SNOMED Code(s): 405478175 Plan: 1. Milk of magnesia 1 and twice a day as needed for constipation. Continue Senokot 2 tablets twice a day. Continue MiraLAX 17 g daily. Dulcolax suppository daily as needed. We'll follow with you. Assessment and plan a care discussed with Dr. Hartman
--- NOTE | 2018-09-29 12:11 | P.PN ---
Subjective Patient feeling much better today sitting in chair at bedside with family in attendance. Patient states she's not have a bowel movement yet. Hopeful discharge home after bowel start working. Patient being treated for UTI with ampicillin noted converted and culture Objective - Vital Signs Vital signs: Vital Signs Temp 97.8 F 09/29/18 05:00 Pulse 101 H 09/29/18 05:00 Resp 16 09/29/18 05:00 BP 128/86 09/29/18 05:00 Pulse Ox 94 L 09/29/18 05:00 Intake & Output 09/28/18 09/29/18 09/29/18 18:59 06:59 18:59 Intake Total 400 1180 Balance 400 1180 Intake: Intake, IV Titration 400 Amount Sodium Chloride 0.9% 1, 400 000 ml @ 50 mls/hr IV . Q20H [facility] Rx#:[id number] Oral 1180 Other: Voiding Method Toilet # Voids 2 2 - Constitutional General appearance: Present: mild distress - EENT Eyes: Present: PERRLA Ears: bilateral: normal - Neck Neck: Present: normal ROM - Respiratory Respiratory: bilateral: CTA - Cardiovascular Rhythm: regular - Gastrointestinal General gastrointestinal: Present: distended, normal bowel sounds, soft - Integumentary Integumentary: Present: normal - Neurologic Neurologic: Present: CNII-XII intact - Musculoskeletal Musculoskeletal: Present: generalized weakness - Psychiatric Psychiatric: Present: A&O x's 3, appropriate affect, intact judgment & insight - Labs CBC & Chem 7: 09/28/18 08:18 09/28/18 08:18 Labs: Microbiology - Last 24 Hours (Table) 09/26/18 10:02 Urine Culture - Final Urine,Voided Enterococcus faecalis Assessment and Plan Plan: Assessment Abdominal pain worsening retroperitoneal lymphadenopathy was splenomegaly Recent diagnosis of lymphoma Chronic atrial fibrillation noted to be in sinus rhythm with PACs history of GERD Heart of hearing Osteoarthritis Hyperlipidemia History of chronic constipation Urinary tract infection enterococcus group D Plan Chemotherapy be initiated after discharge Continue consultation with GI regarding constipation
--- NOTE | 2018-09-29 13:45 | P.PN ---
Subjective Progress Note Date: 09/29/18 Principal diagnosis: abd pain, lymphoma In f/u today pt states good control over abd pain with oral norco, she has had no BM since stool she had with enema on admit. She is feeling better, drinking plenty of fluids. Objective - Vital Signs Vital signs: Vital Signs Temp 97.8 F 09/29/18 05:00 Pulse 101 H 09/29/18 05:00 Resp 16 09/29/18 05:00 BP 128/86 09/29/18 05:00 Pulse Ox 94 L 09/29/18 05:00 Intake & Output 09/28/18 09/29/18 09/29/18 18:59 06:59 18:59 Intake Total 400 1180 Balance 400 1180 Intake: Intake, IV Titration 400 Amount Sodium Chloride 0.9% 1, 400 000 ml @ 50 mls/hr IV . Q20H [facility] Rx#:[id number] Oral 1180 Other: Voiding Method Toilet # Voids 2 2 - Constitutional General appearance: Present: cooperative, no acute distress, thin - EENT Eyes: Present: anicteric sclerae, EOMI ENT: Present: hearing grossly normal - Respiratory Respiratory: bilateral: CTA - Cardiovascular Rhythm: irregularly irregular Heart sounds: normal: S1, S2 Abnormal Heart Sounds: Absent: systolic murmur, diastolic murmur, rub, S3 Gallop, S4 Gallop, click, other - Peripheral edema leg Peripheral Edema: bilateral: None - Gastrointestinal General gastrointestinal: Present: soft Localized gastrointestinal: tender: RLQ - Neurologic Neurologic: Present: CNII-XII intact - Musculoskeletal Musculoskeletal: Present: generalized weakness, strength equal bilaterally - Psychiatric Psychiatric: Present: A&O x's 3, appropriate affect, intact judgment & insight - Labs CBC & Chem 7: 09/28/18 08:18 09/28/18 08:18 Labs: Microbiology - Last 24 Hours (Table) 09/26/18 10:02 Urine Culture - Final Urine,Voided Enterococcus faecalis Assessment and Plan (1) Abdominal pain Narrative/Plan: Oral pain meds providing adequate pain relief. Cont aggressive bowel regimen ordered (miralax daily with senna BID) Current Visit: Yes Status: Acute Priority: High Code(s): R10.9 - UNSPECIFIED ABDOMINAL PAIN SNOMED Code(s): 78939811 (2) High grade malignant lymphoma Narrative/Plan: Port has been placed. Recommendation is to begin treatment ALLISON outpatient. Adding a dose of Milk of mag to hopefully relieve constipation Current Visit: Yes Status: Acute Priority: High Code(s): C85.90 - NON- HODGKIN LYMPHOMA, UNSPECIFIED, UNSPECIFIED SITE SNOMED Code(s): 503792855 (3) Early satiety Narrative/Plan: Reinforced previous discussion that early satiety is r/t lymphoma and cons tipation. Educated on small, frequent meals, liberal fluids and consuming liquid nutritional supplements Current Visit: Yes Status: Acute Priority: Medium Code(s): R68.81 - EARLY SATIETY SNOMED Code(s): 689991734
[2018-09-29] MEDS: SODIUM CHLORIDE 0.9% 1,000 ML IV SCH (15:26)
[2018-09-29] MEDS: ONDANSETRON 4 MG/2 ML VIAL IVP PRN (18:40)
[2018-09-30] MEDS: HYDROcodone/APAP 10-325MG 1 EACH TAB PO PRN ×4 (00:12→18:09)
[2018-09-30] MEDS: AMPICILLIN 1,000 MG in SODIUM CHLORIDE 0.9% 50 ML IVPB SCH ×3 (05:19→16:52)
[2018-09-30] MEDS: NYSTATIN 100000 UNIT/ML PO SCH ×5 (05:21→22:00)
[2018-09-30] MEDS: LEVOTHYROXINE 88 MCG TAB PO SCH (05:22)
[2018-09-30] MEDS: POLYETHYLENE GLYCOL 3350 17 GM POWD.PACK PO SCH (08:19)
[2018-09-30] MEDS: HEPARIN SODIUM,PORCINE 5,000 UNIT/ML 1 ML VIAL SQ SCH ×2 (08:19→22:05)
[2018-09-30] MEDS: SODIUM CHLORIDE 0.9% 1,000 ML IV SCH (08:20)
[2018-09-30] MEDS: SENNOSIDES 8.6 MG TAB PO SCH ×2 (08:20→22:05)
[2018-09-30] MEDS: FAMOTIDINE 20 MG TAB PO SCH ×2 (08:20→22:04)
--- NOTE | 2018-09-30 08:52 | P.PN ---
Subjective Progress Note Date: 09/30/18 Principal diagnosis: Abdominal pain constipation high-grade lymphoma Abdominal pain improved but no bowel movement. Passing flatus. Tolerating diet. No emesis. Objective - Vital Signs Vital signs: Vital Signs Temp 98.0 F 09/30/18 05:00 Pulse 92 09/30/18 05:00 Resp 16 09/30/18 05:00 BP 106/50 09/30/18 05:00 Pulse Ox 93 L 09/30/18 05:00 Intake & Output 09/29/18 09/30/18 09/30/18 18:59 06:59 18:59 Intake Total 400 1060 Balance 400 1060 Weight 55.792 kg Intake: Intake, IV Titration 400 700 Amount Ampicillin 1,000 mg In 100 Sodium Chloride 0.9% 50 ml @ 100 mls/hr IVPB Q6HR [facility] Rx#:[id number] Sodium Chloride 0.9% 1, 400 600 000 ml @ 50 mls/hr IV . Q20H [facility] Rx#:[id number] Oral 360 Other: Voiding Method Toilet # Voids 1 - Exam General appearance: The patient is alert, oriented, in no acute distress. HET: Head is normocephalic and atraumatic. Pupils are equal and reactive. Oropharynx is clear without lesions. Neck: Supple without lymphadenopathy. Trachea midline. Heart: S1 S2. Regular rate and rhythm. Lungs: No crackles or wheezes are heard. Abdomen: Soft, nontender, nondistended with bowel sounds. No peritoneal signs. No palpable organomegaly or masses. Extremities: Normal skin color and turgor. No cyanosis, rash, ulceration, clubbing, or edema. Radial and pedal pulses are 2/4 bilaterally. Neurological: No focal deficits. Strength and sensation are grossly intact. - Labs CBC & Chem 7: 10/01/18 07:34 10/01/18 07:34 Assessment and Plan (1) Abdominal pain Narrative/Plan: 83-year-old female with a recent diagnosis of high-grade lymphoma underlying constipation Mediport placement completed. Colonoscopy reported last fall reported by patient within normal limits. Current Visit: Yes Status: Acute Priority: High Code(s): R10.9 - UNSPECIFIED ABDOMINAL PAIN SNOMED Code(s): 15428222 (2) Constipation Current Visit: Yes Status: Acute Code(s): K59.00 - CONSTIPATION, UNSPECIFIED SNOMED Code(s): 84810596 (3) High grade malignant lymphoma Current Visit: Yes Status: Acute Priority: High Code(s): C85.90 - NON- [place] LYMPHOMA, UNSPECIFIED, UNSPECIFIED SITE SNOMED Code(s): 497333760 Plan: 1. Continue current medical therapy. Passing flatus no bowel movements minimal abdominal pain. Fleet enema 1 abdominal xrays if no improvement. General surgery following will defer to their recommendations. We'll continue to follow as needed. Assessment and plan a care discussed with Dr. Hartman
[2018-09-30] MEDS ORDERED: NA PHOS,M-B/NA PHOS,DI-BA 133 ML ENEMA RECTAL ONE (09:00)
[2018-09-30 11:29] LABS: Albumin 2.9 g/dL (3.5-5.0); Phosphorus 3.1 mg/dL (2.5-4.5); Potassium 4.2 mmol/L (3.5-5.1); Total Bilirubin 0.6 mg/dL (0.2-1.3); Total Protein 5.6 g/dL (6.3-8.2)
--- NOTE | 2018-09-30 12:51 | P.PN ---
Subjective Progress Note Date: 09/30/18 Principal diagnosis: abd pain, lymphoma In follow-up today patient is sitting in a chair. She is unable to confirm if her pain is controlled. Did verify with nursing that they're providing her pain medications as requested. Patient still has not had a bowel movement on her ow n. Case was discussed with Dr. Ramirez. Abdominal x-ray has been ordered for evaluation. Since calcium is noted to be fluctuating between 11 and 11.5, labs been ordered to rule out possible tumor lysis. Objective - Vital Signs Vital signs: Vital Signs Temp 98.0 F 09/30/18 12:11 Pulse 84 09/30/18 12:11 Resp 16 09/30/18 12:11 BP 154/72 09/30/18 12:11 Pulse Ox 90 L 09/30/18 12:11 Intake & Output 09/29/18 09/30/18 09/30/18 18:59 06:59 18:59 Intake Total 400 1060 120 Balance 400 1060 120 Weight 55.792 kg Intake: Intake, IV Titration 400 700 Amount Ampicillin 1,000 mg In 100 Sodium Chloride 0.9% 50 ml @ 100 mls/hr IVPB Q6HR [facility] Rx#:[id number] Sodium Chloride 0.9% 1, 400 600 000 ml @ 50 mls/hr IV . Q20H [facility] Rx#:[id number] Oral 360 120 Other: Voiding Method Toilet Toilet # Voids 1 - Labs CBC & Chem 7: 09/28/18 08:18 09/30/18 10:52 Labs: Abnormal Lab Results - Last 24 Hours (Table) 09/30/18 Range/Units 10:52 Sodium 134 L (137-145) mmol/L Calcium 11.0 H (8.4-10.2) mg/dL Total Protein 5.6 L (6.3-8.2) g/dL Albumin 2.9 L (3.5-5.0) g/dL Assessment and Plan (1) Abdominal pain Current Visit: Yes Status: Acute Priority: High Code(s): R10.9 - UNSPECIFIED ABDOMINAL PAIN SNOMED Code(s): 35980392 (2) High grade malignant lymphoma Current Visit: Yes Status: Acute Priority: High Code(s): C85.90 - NON- H[place] LYMPHOMA, UNSPECIFIED, UNSPECIFIED SITE SNOMED Code(s): 108662215 (3) Early satiety Current Visit: Yes Status: Acute Priority: Medium Code(s): R68.81 - EARLY SATIETY SNOMED Code(s): 858841802 Plan: Case was discussed with Dr. Ramirez. Abdominal x-ray has been ordered for constipation, no bowel movement since admission and that was induced with an enema. Nursing states an enema on Thursday, 4 days ago with no stool. We'll await results Calcium to be fluctuating between 11 and 11.5, labs been ordered to rule out spontaneous tumor lysis. There was discussion of possibly doing extended care facility but, patient's symptoms are related to her aggressive lymphoma. After discussion with attending going to try to plan for home care with PT/OT. Check with the office currently we are still awaiting her [employer] insurance to get approval for chemo (this process was started over 2 weeks ago). We will let patient know as soon as possible when we are able to start her treatment. We will continue with current analgesic regimen, patient will have to make sure that she is clear and communicating her pain and making sure that it is treated. Aggressive bowel regimen remains, especially due to narcotics. Awaiting abdominal x-ray.
--- NOTE | 2018-09-30 15:29 | XR ---
EXAMINATION TYPE: XR abdomen 2V DATE OF EXAM: 09/30/2018 CLINICAL DATA: 83-year-old female with constipation, history of lymphoma, [facility] COMPARISON: 09/26/2018 FINDINGS: Right axillary clips. Central line is present at the caval atrial junction. Small left pleural effusi on with left basilar opacity. No evidence for free intraperitoneal air. Scattered air-fluid levels are present involving multiple small bowel loops and also right hemicolon. Small bowel loops are dilated up to 3.6 cm. Some distal rectal gas remains an additional air seen wi thin the ascending colon and splenic flexure. IMPRESSION: 1. Small left pleural effusion with left basilar atelectasis or infiltrate. 2. No free air seen. 3. Small bowel and colonic air-fluid levels. Colonic air remains but small bowel loops are dilated no w up to 3.6 cm. Correlate for a marked generalized ileus versus partial small bowel obstruction.
--- NOTE | 2018-09-30 23:40 | PN ---
PROGRESS NOTE I am covering for Dr. Arias. DATE OF SERVICE: 09/30/2018 I This 83-year-old woman who was admitted with features of abdominal pain with worsening retroperitoneal lymphadenopathy and splenomegaly also had constipation. The patient is also complaining of tiredness and weakness. Hematology/Oncology is following the patient closely and recommending outpatient chemotherapy sooner than later. Otherwise, the patient also had an abdominal flat plate showed only small left pleural effusion. Oral intake is extremely poor at this time. Some ileus was also suspected. A CT scan of the abdomen and pelvis that was done on the day of admission showed retroperitoneal lymphadenopathy and bulky spleen suggestive of lymphoma at this time. Past medical history reviewed. REVIEW OF SYSTEMS: CARDIOVASCULAR SYSTEM: No angina, palpitations. RESPIRATORY SYSTEM: As mentioned earlier. GI: As mentioned earlier. : No dysuria or retention. NERVOUS SYSTEM: No numbness, weakness. CURRENT MEDICATIONS: Reviewed. The include: 1. Tylenol p.r.n. 2. [place] 10 mg q.4 p.r.n. 3. Unasyn 1 gram q.6. 4. Dulcolax 10 mg p.r.n. 5. Pepcid 20 mg b.i.d. 6. Heparin 5000 units subcutaneously b.i.d. 7. Milk of Magnesia. 8. Narcan. 9. Nystatin. 10.Zofran. 11.MiraLAX. 12.Senokot. 13.IV fluids. PHYSICAL EXAMINATION: Patient is alert, oriented x2. Pulse 84, blood pressure 150/72, respiration 16, temperature 98 degrees, pulse ox 98% on room air. HEENT: Conjunctivae normal. Oral mucosa moist. NECK: No jugular venous distention. No carotid bruit. No lymph node enlargement. CARDIOVASCULAR SYSTEM: S1, S2 muffled. RESPIRATORY SYSTEM: Breath sounds diminished at the bases. A few scattered rhonchi and crackles. ABDOMEN: Soft. Mild diffuse distention. Mild diffuse discomfort on palpation. No guarding. No rigidity. No mass palpable. No ascites. LEGS: No edema. No swelling. NERVOUS SYSTEM: Higher functions as mentioned earlier. Moves all 4 limbs. No focal motor or sensory deficit. LYMPHATICS: No lymph node palpable in neck, axillae or groin. SKIN: No ulcer, rash, bleeding. JOINTS: No active deforming arthropathy. LABS: WBC 9.6, hemoglobin 11.1, sodium 134. Calcium is 11. ASSESSMENT: 1. Abdominal pain secondary to worsening retroperitoneal lymphadenopathy and splenomegaly as well as possible lymphoma. 2. Recent diagnosis of lymphoma. 3. Chronic atrial fibrillation. 4. History of hard of hearing. 5. Degenerative joint disease. 6. Hyperlipidemia. 7. History of chronic constipation. 8. Urinary tract infection with Enterococcus faecalis which is vancomycin-sensitive. 9. Hyponatremia. 10.Anemia of chronic disease. 11.Hypercalcemia secondary to lymphoma. 12.Hypoalbuminemia with mild to moderate protein-calorie malnutrition. 13.NO CODE, NO CPR, NO VENT. RECOMMENDATIONS AND DISCUSSION: In this 83-year-old woman who presented with multiple complex medical issues, we will monitor the patient closely, continue the current management, continue with symptomatic treatment. Otherwise at this time I recommend closely follow with Hematology/Oncology. Hematology/Oncology would like to start the chemotherapy sooner than later to give some palliative relief and comfort for her abdominal symptoms. Will continue to monitor. PT/OT evaluation. Home with home care and PT/OT also will be considered. DVT prophylaxis. Further recommendations to follow. Repeat labs will be ordered. MMODL / IJN: [id number] /
[2018-10-01] MEDS: NYSTATIN 100000 UNIT/ML PO SCH ×3 (00:45→11:04)
[2018-10-01] MEDS: AMPICILLIN 1,000 MG in SODIUM CHLORIDE 0.9% 50 ML IVPB SCH ×3 (00:45→12:21)
[2018-10-01] MEDS: SODIUM CHLORIDE 0.9% 1,000 ML IV SCH (04:20)
[2018-10-01 04:59] VITALS: BP 119/55; RESP 16; TEMP 98.4
[2018-10-01] MEDS: LEVOTHYROXINE 88 MCG TAB PO SCH (06:04)
[2018-10-01] MEDS: HEPARIN SODIUM,PORCINE 5,000 UNIT/ML 1 ML VIAL SQ SCH (07:28)
[2018-10-01] MEDS: FAMOTIDINE 20 MG TAB PO SCH (07:29)
[2018-10-01] MEDS: POLYETHYLENE GLYCOL 3350 17 GM POWD.PACK PO SCH (07:29)
[2018-10-01] MEDS: SENNOSIDES 8.6 MG TAB PO SCH (07:37)
[2018-10-01 08:20] LABS: Basophils % (A) 0 %; Eosinophils # (A) 0.2 k/uL (0-0.7); Eosinophils % (A) 2 %; HCT 39.2 % (34.0-46.0); HGB 11.6 gm/dL (11.4-16.0); Hypochromasia Moderate; Lymphocytes % (A) 8 %; MCH 25.1 pg (25.0-35.0); MCHC 29.6 g/dL (31.0-37.0); MCV 84.8 fL (80.0-100.0); Mean Platelet Volume 6.7; Monocytes # (A) 0.8 k/uL (0-1.0); Monocytes % (A) 6 %; Neutrophils # (A) 9.9 k/uL (1.3-7.7); Neutrophils % (A) 82 %; Platelet Count 297 k/uL (150-450); RBC 4.62 m/uL (3.80-5.40); RDW 14.1 % (11.5-15.5); WBC 12.1 k/uL (3.8-10.6)
[2018-10-01 08:33] LABS: Calcium 11.1 mg/dL (8.4-10.2); Potassium 3.9 mmol/L (3.5-5.1)
[2018-10-01 10:18] VITALS: PULSE 93
--- NOTE | 2018-10-01 11:58 | P.PN ---
Progress Note - Text Progress Note Date: 10/01/18 Patient is being discharged home today. O2 sat on room air after ambulation 87%. Patient will require 2 L nasal cannula O2 for her hypoxic respiratory failure as well as duonebs 4 times a day and every 4 hours when necessary shortness of breath, for her COPD. Case management arranging.
[2018-10-01] MEDS: HYDROcodone/APAP 10-325MG 1 EACH TAB PO PRN (12:20)
--- NOTE | 2018-10-01 22:50 | DS ---
DISCHARGE SUMMARY DATE OF SERVICE: 10/01/2018 FINAL DIAGNOSES: 1. Abdominal pain secondary to worsening retroperitoneal lymphadenopathy, splenomegaly as well as possible lymphoma. 2. Recent diagnosis of lymphoma; waiting for outpatient chemotherapy. 3. Chronic atrial fibrillation. 4. History of hard of hearing. 5. Degenerative joint disease. 6. Hyperlipidemia. 7. History of chronic constipation. 8. Urinary tract infection with Enterococcus faecalis which is vancomycin-sensitive. 9. Hyponatremia. 10.Anemia of chronic disease. 11.Hypercalcemia secondary to lymphoma. 12.Hypoalbuminemia with mild to moderate protein-calorie malnutrition. 13.NO CODE, NO CPR, NO VENT. DISCHARGE DISPOSITION: The patient will be discharged in stable condition with guarded prognosis. Total time taken 35 minutes. HISTORY OF PRESENT ILLNESS: This 83-year-old woman with a past medical history of multiple medical problems, being followed by Dr. Rob Arias in the outpatient setting, was admitted with abdominal pain. The patient was recently diagnosed with lymphoma, treated symptomatically and improved significantly. Outpatient chemotherapy was suggested by Hematology/Oncology, and the patient was discharged in stable condition with guarded prognosis. The patient also had UTI which was treated with IV antibiotics. On exam, vitals are stable. CARDIOVASCULAR SYSTEM: S1, S2 muffled. ABDOMEN: Soft. Mild diffuse discomfort. Otherwise, no guarding, no rigidity. Bowel sounds present. LEGS: No edema. No swelling. NERVOUS SYSTEM: No focal deficit. DISCHARGE ADVICE AND MEDICATIONS: 1. Discharge diet is cardiac, soft and low-residue. 2. Activity limited until followup. 3. Follow up with Dr. Arias in 2-3 days. 4. Follow up with Dr. Dalal as advised for chemotherapy. 5. Follow up with Surgery as recommended. 6. Home care is also being arranged. 7. Synthroid 88 mcg p.o. each morning. 8. Tylenol p.r.n. t.i.d. 9. Augmentin 875 mg p.o. b.i.d. 10.DuoNeb q.i.d. and p.r.n. 11.Lidocaine; local application. 12.MiraLAX 17 grams daily. 13.[place] 10 mg q.6 p.r.n. 14.Pepcid 20 mg p.o. b.i.d. 15.Senokot 17.2 mg p.o. t.i.d. p.r.n. Once again, the patient is being discharged in stable condition with guarded prognosis. Hold laxatives if there is any diarrhea. MMODL / IJN: [id number] /
[2018-10-02] MEDS ORDERED: FAMOTIDINE 20 MG TAB PO SCH (09:00)
--- NOTE | 2018-10-04 09:28 | CDI ---
Documentation Clarification Form Date: 10/04/18 From: Lucie Moise Phone: If you have a question regarding this query, please contact Megan Dumont at [phone] Admit Date: 10/01/2018 9:11:00 AM Patient Name: Marsha Dudley Visit Number: [id number] Discharge Date: 10/01/2018 4:00:00 PM ATTENTION: The Clinical Documentation Specialists (CDI) and [facility] Coding Staff appreciate your assistance in clarifying documentation. Please respond to the clarification below the line at the bottom and electronically sign. The CDI & [facility] Coding staff will review the response and follow-up if needed. Please note: Queries are made part of the Legal Health Record. If you have any questions, please contact the author of this message via ITS. Connie Qiu NP/Dr. Mery Ramirez The patient presented with abdominal pain due to worsening retroperitoneal lymphadenopathy, splenomegaly as well as possible lymphoma. Per your 10/01 progress note the patient will require 2 L O2 per nasal cannula at home for hypoxic respiratory failure. History/Risk Factors: The patient has a history of COPD, chronic a-fib and and anemia of chronic disease. Tobacco use: No history of tobacco use. Clinical Indicators: Decreased O2 sat. Per Connie Qiu's 10/01 progress note, the patient's O2 sat on room air after ambulation was 87%. Vital signs: T. 97.9, P. 93, R. 20, BP 121/72. Pulse oximetry: Admit 95%, Discharge Day: Room air w/exercise 87%, room air at rest 78%, O2 at rest 93% Lung/Breathing assessment: 10/01 - breath sounds diminished at the bases. A few scattered rhonchi and crackles. Treatment: Breathing tx: None O2/Vent/BiPap: O2 per nasal cannula 2-3 and up to 6 on 09/27. Patient going home with O2 at 2L In your professional opinion, can you please clarify the acuity of the hypoxic respiratory failure.? Acute Chronic Acute on Chronic acute hypoxic respiratory failure 10/19/18 acute hypoxic respiratory failure - already answered see above MTDD
== END 2018-10-01 16:00 | disposition home health service (06) | DRG 823 ==
LOC: EC 06:41 → INTOOBSV 10:26 → 3NMEDONC 10:26 → OBSVTOIN 10-01 09:11
PROVIDERS: ADMIT Family Medicine; ATTEND Family Medicine
PROC: 05HY33Z Insertion of Infusion Device into Upper Vein, Percutaneous Approach (ICD-10-PCS; 2018-09-27)
PROC: 0JH60WZ Insertion of Totally Implantable Vascular Access Device into Chest Subcutaneous Tissue and Fascia, Open Approach (ICD-10-PCS; principal; 2018-09-27 13:35)
DX: C83.30 Diffuse large B-cell lymphoma, unspecified site (principal); J96.01 Acute respiratory failure with hypoxia; E44.0 Moderate protein-calorie malnutrition; E87.1 Hypo-osmolality and hyponatremia; I31.3 Pericardial effusion (noninflammatory); J98.11 Atelectasis; N39.0 Urinary tract infection, site not specified; R18.8 Other ascites; K56.7 Ileus, unspecified; I48.2 Chronic atrial fibrillation; J44.9 Chronic obstructive pulmonary disease, unspecified; E83.52 Hypercalcemia; D63.8 Anemia in other chronic diseases classified elsewhere; Z66 Do not resuscitate; B95.2 Enterococcus as the cause of diseases classified elsewhere; D72.821 Monocytosis (symptomatic); E78.5 Hyperlipidemia, unspecified; H91.90 Unspecified hearing loss, unspecified ear; K21.9 Gastro-esophageal reflux disease without esophagitis; K57.30 Diverticulosis of large intestine without perforation or abscess without bleeding; M19.90 Unspecified osteoarthritis, unspecified site; E07.9 Disorder of thyroid, unspecified; K66.0 Peritoneal adhesions (postprocedural) (postinfection); R68.81 Early satiety; R91.1 Solitary pulmonary nodule; K59.09 Other constipation; Z79.890 Hormone replacement therapy; Z90.710 Acquired absence of both cervix and uterus; Z90.11 Acquired absence of right breast and nipple; Z85.3 Personal history of malignant neoplasm of breast; Z85.820 Personal history of malignant melanoma of skin; Z86.14 Personal history of Methicillin resistant Staphylococcus aureus infection; Z98.42 Cataract extraction status, left eye; Z98.41 Cataract extraction status, right eye; Z96.1 Presence of intraocular lens; Z88.7 Allergy status to serum and vaccine; Z88.8 Allergy status to other drugs, medicaments and biological substances; Z88.1 Allergy status to other antibiotic agents; Z91.041 Radiographic dye allergy status; Z68.21 Body mass index [BMI] 21.0-21.9, adult; Z87.01 Personal history of pneumonia (recurrent); Z80.7 Family history of other malignant neoplasms of lymphoid, hematopoietic and related tissues; Z80.52 Family history of malignant neoplasm of bladder; Z80.3 Family history of malignant neoplasm of breast; Z80.1 Family history of malignant neoplasm of trachea, bronchus and lung; Z80.0 Family history of malignant neoplasm of digestive organs; Z80.8 Family history of malignant neoplasm of other organs or systems; Z83.49 Family history of other endocrine, nutritional and metabolic diseases; Z82.3 Family history of stroke; Z90.49 Acquired absence of other specified parts of digestive tract
CPT/HCPCS: 36415; 74018; 74019; 74176; 77001; 80048; 80053; 81001; 83605; 83690; 83735; 83970; 84100; 85025; 87077; 87086; 87186; 93005; 96374; 99285

== ENCOUNTER 2018-10-03 16:34 | Inpatient (IN) | payer MEDICARE ==
[2018-10-03] MEDS ORDERED: MORPHINE SULFATE 4 MG/ML SYRINGE IV STA (16:43)
[2018-10-03] MEDS ORDERED: ONDANSETRON 4 MG/2 ML VIAL IVP STA (16:43)
[2018-10-03] MEDS ORDERED: SODIUM CHLORIDE 0.9% 1,000 ML IV STA ×2 (16:43)
--- NOTE | 2018-10-03 16:44 | ED ---
Abdominal Pain HPI - General Chief Complaint: Abdominal Pain Stated Complaint: vomiting Time Seen by Provider: 10/03/18 16:43 Source: patient, RN notes reviewed, old records reviewed Mode of arrival: wheelchair Limitations: no limitations - History of Present Illness Initial Comments: This is an 80-year-old female the ER for evaluation. Patient has significant abdominal pain. Patient resents today for evaluation regarding abdominal pain shortness of breath with cough. No known fevers. Patient does have multiple history of abdominal surgery multiple abdominal surgeries prior. Mild nausea no vomiting no diarrhea MD Complaint: abdominal pain -: hour(s), unknown Location: diffuse, periumbilical, epigastric, suprapubic Radiation: none Migration to: no migration Severity: moderate Severity scale (1-10): 5 Quality: aching Consistency: constant Improves With: nothing Worsens With: nothing Associated Symptoms: nausea, other (weakness) - Related Data Home Medications Medication Instructions Recorded Confirmed Levothyroxine Sodium [Synthroid] 88 mcg PO QAM 04/28/17 10/03/18 Acetaminophen [Tylenol Extra 500 mg PO TID PRN 09/26/18 10/03/18 Strength] Ipratropium-Albuterol Nebulize 3 ml INHALATION RT-QID 10/03/18 10/03/18 [Duoneb 0.5 mg-3 mg/3 ml Soln] Sodium Bicarbonate Tab 1,300 mg PO BID 10/03/18 10/03/18 Previous Rx's Medication Instructions Recorded Lidocaine-Prilocaine Cream [[place] 1 applic TOPICAL DIRECTED PRN 09/28/18 Cream 2.5%/2.5%] #30 gm Amoxic-Pot Clav 875-125Mg 1 tab PO Q12HR #10 tablet 10/01/18 [Augmentin 875-125] Famotidine [Pepcid] 20 mg PO Q12HR #60 tab 10/01/18 HYDROcodone/APAP 10-325MG [[place] 1 each PO Q6H PRN #10 tab 10/01/18 10-325] Polyethylene Glycol 3350 [Miralax] 17 gm PO DAILY powd.pack 10/01/18 Allergies Allergy/AdvReac Type Severity Reaction Status Date / Time Iodinated Contrast- Oral and Allergy Anaphylaxis Verified 10/03/18 16:56 IV Dye [Iodinated Contrast Media - IV Dye] atorvastatin calcium AdvReac Nausea Verified 10/03/18 16:56 [From Lipitor] celecoxib [From Celebrex] AdvReac Nausea Verified 10/03/18 16:56 cephalexin [From Keflex] AdvReac Unknown Verified 10/03/18 16:56 influenza virus vaccine, AdvReac Nausea & Verified 10/03/18 16:56 specific Vomiting & [influenza virus Diarrhea,high vacc,specific] fever Review of Systems ROS Statement: Those systems with pertinent positive or pertinent negative responses have been documented in the HPI. ROS Other: All systems not noted in ROS Statement are negative. Past Medical History Past Medical History: Atrial Fibrillation, Cancer, COPD, GERD/Reflux, Hearing Disorder / Deafness, Hyperlipidemia, Musculoskeletal Disorder, Osteoarthritis (OA), Pneumonia, Thyroid Disorder Additional Past Medical History / Comment(s): Constipation, bowel adhesions. Hx bowel obstruction, right breast cancer-1997 no chemo or radiation, melanoma face 2014, osteoporosis, pneumonia Aug 2016, Lymphoma History of Any Multi-Drug Resistant Organisms: MRSA Date of last positivie culture/infection: 2010? MDRO Source:: post surgical wound from bowel resection Past Surgical History: Appendectomy, Bowel Resection, Breast Surgery, Cholecystectomy, Hysterectomy Additional Past Surgical History / Comment(s): Bilateral cataracts, right mastectomy. Past Anesthesia/Blood Transfusion Reactions: No Reported Reaction Additional Past Anesthesia/Blood Transfusion Reaction / Comment(s): no hx blood transfusion Past Psychological History: No Psychological Hx Reported Smoking Status: Never smoker Past Alcohol Use History: None Reported Past Drug Use History: None Reported - Past Family History Sister(s) Family Medical History: Cancer, CVA/TIA Additional Family Medical History / Comment(s): breast Cancer in 3 sisters Son(s) Family Medical History: Cancer, Thyroid Disorder Additional Family Medical History / Comment(s): LYMPHOMA, Congential heart problem. Daughter(s) Family Medical History: Cancer Additional Family Medical History / Comment(s): colon cancer Brother(s) Family Medical History: Cancer Additional Family Medical History / Comment(s): ONE BROTHER BLADDER CA, ONE WITH LUNG CA Mother Family Medical History: Cancer Additional Family Medical History / Comment(s): Stomach cancer Father Family Medical History: CVA/TIA General Exam Limitations: no limitations General appearance: alert, in no apparent distress Head exam: Present: atraumatic, normocephalic, normal inspection Eye exam: Present: normal appearance, PERRL, EOMI. Absent: scleral icterus, conjunctival injection, periorbital swelling ENT exam: Present: normal exam, mucous membranes moist Neck exam: Present: normal inspection. Absent: tenderness, meningismus, lymphadenopathy Respiratory exam: Present: normal lung sounds bilaterally. Absent: respiratory distress, wheezes, rales, rhonchi, stridor Cardiovascular Exam: Present: regular rate, normal rhythm, normal heart sounds. Absent: systolic murmur, diastolic murmur, rubs, gallop, clicks GI/Abdominal exam: Present: soft, normal bowel sounds. Absent: distended, tenderness, guarding, rebound, rigid Extremities exam: Present: normal inspection, full ROM, normal capillary refill. Absent: tenderness, pedal edema, joint swelling, calf tenderness Back exam: Present: normal inspection Neurological exam: Present: alert, oriented X3, CN II-XII intact Psychiatric exam: Present: normal affect, normal mood Skin exam: Present: warm, dry, intact, normal color. Absent: rash Course Vital Signs 10/03/18 16:35 Temperature 99.0 F Pulse Rate 83 Respiratory 20 Rate Blood Pressure 139/57 O2 Sat by Pulse 90 L Oximetry - Reevaluation(s) Reevaluation #1: 10/03/18 16:46 Medical records reviewed Reevaluation #2: 10/03/18 19:46 Patient's pain is improved, no nausea vomiting Medical Decision Making - Medical Decision Making 83 female the ER, CT is positive for pneumonia x-rays positive for pneumonia. Abdominal pain with ileus. Also mild anemia with [place] grand he will a drop. Patient will be admitted for evaluation of continuing hemoglobin drop, IV antibiotics for pneumonia - Lab Data Result diagrams: 10/03/18 16:50 10/03/18 16:50 Lab Results 10/03/18 10/03/18 10/03/18 Range/Units 16:50 16:50 16:50 WBC 11.5 H (3.8-10.6) k/uL RBC 3.84 (3.80-5.40) m/uL Hgb 9.8 L D (11.4-16.0) gm/dL Hct 31.4 L (34.0-46.0) % MCV 81.8 (80.0-100.0) fL MCH 25.6 (25.0-35.0) pg MCHC 31.3 (31.0-37.0) g/dL RDW 14.9 (11.5-15.5) % Plt Count 315 (150-450) k/uL Neutrophils % 82 % Lymphocytes % 8 % Monocytes % 7 % Eosinophils % 2 % Basophils % 0 % Neutrophils # 9.4 H (1.3-7.7) k/uL Lymphocytes # 1.0 (1.0-4.8) k/uL Monocytes # 0.8 (0-1.0) k/uL Eosinophils # 0.2 (0-0.7) k/uL Basophils # 0.0 (0-0.2) k/uL Sodium 135 L (137-145) mmol/L Potassium 3.6 (3.5-5.1) mmol/L Chloride 97 L (98-107) mmol/L Carbon Dioxide 31 H (22-30) mmol/L Anion Gap 7 mmol/L BUN 10 (7-17) mg/dL Creatinine 0.83 (0.52-1.04) mg/dL Est GFR (CKD-EPI)AfAm 76 (>60 ml/min/1.73 sqM) Est GFR (CKD-EPI)NonAf 66 (>60 ml/min/1.73 sqM) Glucose 100 H (74-99) mg/dL Plasma Lactic Acid [place] 1.4 (0.7-2.0) mmol/L Calcium 11.7 H (8.4-10.2) mg/dL Total Bilirubin 0.6 (0.2-1.3) mg/dL AST 31 (14-36) U/L ALT 24 (9-52) U/L Alkaline Phosphatase 85 (38-126) U/L Total Protein 5.5 L (6.3-8.2) g/dL Albumin 2.8 L (3.5-5.0) g/dL Amylase <30 L (30-110) U/L Lipase 82 (23-300) U/L Urine Color Urine Appearance (Clear) Urine pH (5.0-8.0) Ur Specific [place] (1.001-1.035) Urine Protein (Negative) Urine Glucose (UA) (Negative) Urine Ketones (Negative) Urine Blood (Negative) Urine Nitrite (Negative) Urine Bilirubin (Negative) Urine Urobilinogen (<2.0) mg/dL Ur Leukocyte Esterase (Negative) Urine WBC (0-5) /hpf 10/03/18 Range/Units 17:36 WBC (3.8-10.6) k/uL RBC (3.80-5.40) m/uL Hgb (11.4-16.0) gm/dL Hct (34.0-46.0) % MCV (80.0-100.0) fL MCH (25.0-35.0) pg MCHC (31.0-37.0) g/dL RDW (11.5-15.5) % Plt Count (150-450) k/uL Neutrophils % % Lymphocytes % % Monocytes % % Eosinophils % % Basophils % % Neutrophils # (1.3-7.7) k/uL Lymphocytes # (1.0-4.8) k/uL Monocytes # (0-1.0) k/uL Eosinophils # (0-0.7) k/uL Basophils # (0-0.2) k/uL Sodium (137-145) mmol/L Potassium (3.5-5.1) mmol/L Chloride (98-107) mmol/L Carbon Dioxide (22-30) mmol/L Anion Gap mmol/L BUN (7-17) mg/dL Creatinine (0.52-1.04) mg/dL Est GFR (CKD-EPI)AfAm (>60 ml/min/1.73 sqM) Est GFR (CKD-EPI)NonAf (>60 ml/min/1.73 sqM) Glucose (74-99) mg/dL Plasma Lactic Acid [place] (0.7-2.0) mmol/L Calcium (8.4-10.2) mg/dL Total Bilirubin (0.2-1.3) mg/dL AST (14-36) U/L ALT (9-52) U/L Alkaline Phosphatase (38-126) U/L Total Protein (6.3-8.2) g/dL Albumin (3.5-5.0) g/dL Amylase (30-110) U/L Lipase (23-300) U/L Urine Color Light Yellow Urine Appearance Cloudy H (Clear) Urine pH 7.0 (5.0-8.0) Ur Specific [place] 1.005 (1.001-1.035) Urine Protein Negative (Negative) Urine Glucose (UA) Negative (Negative) Urine Ketones Negative (Negative) Urine Blood Negative (Negative) Urine Nitrite Negative (Negative) Urine Bilirubin Negative (Negative) Urine Urobilinogen <2.0 (<2.0) mg/dL Ur Leukocyte Esterase Small H (Negative) Urine WBC 20 H (0-5) /hpf - Radiology Data Radiology results: report reviewed (Chest x-ray CT head and pelvis positive for pneumonia, ileus), image reviewed Disposition Clinical Impression: High grade malignant lymphoma, Ileus, Pneumonia, Anemia Disposition: ADMITTED IP TO THIS HOSP Condition: Fair Is patient prescribed a controlled substance at d/c from ED?: No Referrals: oRb Arias MD [Primary Care Provider] - 1-2 days
[2018-10-03 17:02] LABS: Basophils % (A) 0 %; Eosinophils # (A) 0.2 k/uL (0-0.7); Eosinophils % (A) 2 %; HCT 31.4 % (34.0-46.0); Lymphocytes % (A) 8 %; MCH 25.6 pg (25.0-35.0); MCHC 31.3 g/dL (31.0-37.0); MCV 81.8 fL (80.0-100.0); Mean Platelet Volume 6.9; Monocytes # (A) 0.8 k/uL (0-1.0); Monocytes % (A) 7 %; Neutrophils # (A) 9.4 k/uL (1.3-7.7); Neutrophils % (A) 82 %; Platelet Count 315 k/uL (150-450); RBC 3.84 m/uL (3.80-5.40); RDW 14.9 % (11.5-15.5); WBC 11.5 k/uL (3.8-10.6)
[2018-10-03 17:04] LABS: HGB 9.8 gm/dL (11.4-16.0)
[2018-10-03 17:12] LABS: ALT 24 U/L (9-52); AST 31 U/L (14-36); Albumin 2.8 g/dL (3.5-5.0); Alkaline Phosphatase 85 U/L (38-126); Amylase <30 U/L (30-110); Anion Gap 7 mmol/L; Blood Urea Nitrogen 10 mg/dL (7-17); Calcium 11.7 mg/dL (8.4-10.2); Carbon Dioxide 31 mmol/L (22-30); Chloride 97 mmol/L (98-107); Glucose 100 mg/dL (74-99); Lipase 82 U/L (23-300); Potassium 3.6 mmol/L (3.5-5.1); Sodium 135 mmol/L (137-145); Total Bilirubin 0.6 mg/dL (0.2-1.3); Total Protein 5.5 g/dL (6.3-8.2)
--- NOTE | 2018-10-03 17:28 | XR ---
EXAMINATION TYPE: XR abdomen acute w cxr DATE OF EXAM: 10/03/2018 COMPARISON: 09/30/2018 HISTORY: TECHNIQUE: Chest x-ray with supine and upright abdomen FINDINGS: There is some blunting of the costophrenic angles more on the left side. Heart is enlarged. There is no gross heart failure. There is some infiltrate in the left lower lobe. There is surgical clips at t he right axilla. There is a left subclavian catheter with the tip in the superior vena cava. There is large and small bowel gas throughout the abdomen. There is no sign of free air. There are no patholo gic calcifications over the kidneys. There are clips from cholecystectomy. IMPRESSION: There is evidence for some small bowel ileus. No change. Left lower lobe pneumonia with bilateral pleural effusions. Unchanged.
[2018-10-03 17:54] LABS: Appearance,Urine Cloudy (Clear); Bilirubin,Urine Negative (Negative); Blood,Urine Negative (Negative); Color,Urine Light Yellow; Glucose,Urine (UA) Negative (Negative); Ketones,Urine Negative (Negative); Leukocyte Esterase,Urine Small (Negative); Nitrite,Urine Negative (Negative); Protein,Urine Negative (Negative); Specific Gravity,Urine 1.005 (1.001-1.035); Urobilinogen,Urine <2.0 mg/dL (<2.0); WBC,Urine 20 /hpf (0-5)
[2018-10-03] MEDS ORDERED: diphenhydrAMINE 50 MG/ML 1 ML VIAL IVP STA (18:10)
[2018-10-03] MEDS ORDERED: methylPREDNISolone SOD SUCCI 125 MG/2 ML VIAL IV STA (18:10)
[2018-10-03] MEDS ORDERED: FAMOTIDINE 20 MG/2 ML VIAL IV STA (18:10)
[2018-10-03] MEDS ORDERED: PIPERACILLIN-TAZOBACTAM 3.375 GM in SODIUM CHLORIDE 0.9% 100 ML IVPB STA (18:20)
[2018-10-03] MEDS ORDERED: LEVOFLOXACIN 750MG-D5W PMX 750 MG in DEXTROSE/WATER 1 150ML.BAG IVPB STA (18:20)
--- NOTE | 2018-10-03 19:38 | CT ---
EXAMINATION TYPE: CT abdomen pelvis w con DATE OF EXAM: 10/03/2018 COMPARISON: 09/26/2018 HISTORY: abdominal pain, nausea, vomiting. CT DLP: 714 mGycm Automated exposure control for dose reduction was used. TECHNIQUE: Helical acquisition of images was performed from the lung bases through the pelvis. CONTRAST: Performed without Oral Contrast and with IV Contrast, patient injected with 100 mL of Isovue 300. FINDINGS: There are moderate bilateral pleural effusions. There is basilar pulmonary consolidation and atelecta sis. There is pericardial effusion. Heart appears enlarged. There are clips from cholecystectomy. There is dilated common bile duct that measures 2.3 cm. I see n o definite filling defect. There are numerous variable sized hypodense areas in the spleen. These roshan sure up to almost 3 cm. I see no pancreatic mass. There are numerous enlarged retroperitoneal lymph nodes that measure up to 4 x 3 cm. Abdominal aorta is atheromatous. There is no adrenal mass. Kidneys show satisfactory contrast opacification. There is no hydronephrosis. There is mild free fluid in the pelvis. Bladder distends smoothly. There is no pe lvic mass. There are a few inguinal lymph nodes that measure up to 2.2 cm. There is no evidence of a bowel obstruction. There is no mesenteric edema. There are multiple enlarge d mesenteric lymph nodes that measure up to 1.5 cm. There is no free air. Lumbar spine is intact. I s ee no bony destructive process. Bony pelvis is intact. IMPRESSION: ATHEROSCLEROTIC VASCULAR DISEASE. MILD FREE FLUID IN THE PELVIS. MESENTERIC AND RETROPERITONEAL LYMPH ADENOPATHY. INGUINAL ADENOPATHY. MILDLY DILATED BILIARY TREE SLIGHTLY WORSE THAN LAST EXAM BUT NO OBSTRUCTING LESION SEEN. MRCP MIGHT BE USEFUL FOR FURTHER EVALUATION. SMALL PERICARDIAL EFFUSION UNCHANGED. BILATERAL PLEURAL EFFUSIONS AND BASILAR PULMONARY INFILTRATES AND ATELECTASIS INCREASED COMPARED TO R ECENT EXAM. NUMEROUS SPLENIC MASSES CONSISTENT WITH METASTATIC DISEASE. Subcutaneous edema is increas ed compared to last exam. This could relate to congestive heart failure.
[2018-10-03] MEDS ORDERED: PNEUMONIA PROTOCOL UTILIZED 1 EACH MISC PO PRN (19:45)
[2018-10-03] MEDS ORDERED: ALBUTEROL NEBULIZED 2.5 MG/3 ML INHALATION PRN (19:45)
[2018-10-03] MEDS: IPRATROPIUM-ALBUTEROL 3 ML NEB INHALATION SCH (23:29)
[2018-10-03] MEDS: SODIUM CHLORIDE 0.9% 1,000 ML IV SCH (23:49)
[2018-10-04] MEDS ORDERED: PIPERACILLIN-TAZOBACTAM 3.375 GM in SODIUM CHLORIDE 0.9% 100 ML IVPB SCH (06:00)
[2018-10-04] MEDS: SODIUM CHLORIDE 0.9% 1,000 ML IV SCH ×2 (06:05→15:33)
[2018-10-04] MEDS: IPRATROPIUM-ALBUTEROL 3 ML NEB INHALATION SCH ×4 (09:56→20:18)
[2018-10-04 12:01] VITALS: BMI 21.2
--- NOTE | 2018-10-04 12:44 | P.HPIM ---
History of Present Illness 83-year-old female is return visit for complaints of continued abdominal pain and shortness of breath. Patient was found to have pneumonia with pleural effusion. Patient has a history of high-grade malignant lymphoma ileus chronic anemia. Review of Systems Constitutional: Reports fatigue Respiratory: Reports dyspnea Gastrointestinal: Reports abdominal pain, Reports constipation Past Medical History Past Medical History: Atrial Fibrillation, Cancer, COPD, GERD/Reflux, Hearing Disorder / Deafness, Hyperlipidemia, Musculoskeletal Disorder, Osteoarthritis (OA), Pneumonia, Thyroid Disorder Additional Past Medical History / Comment(s): Constipation, bowel adhesions. Hx bowel obstruction, right breast cancer-1997 no chemo or radiation, melanoma face 2014, osteoporosis, pneumonia Aug 2016, Lymphoma History of Any Multi-Drug Resistant Organisms: MRSA Date of last positivie culture/infection: 2010? MDRO Source:: post surgical wound from bowel resection Past Surgical History: Appendectomy, Bowel Resection, Breast Surgery, Cholecystectomy, Hysterectomy Additional Past Surgical History / Comment(s): Bilateral cataracts, right mastectomy. Past Anesthesia/Blood Transfusion Reactions: No Reported Reaction Additional Past Anesthesia/Blood Transfusion Reaction / Comment(s): no hx blood transfusion Past Psychological History: No Psychological Hx Reported Smoking Status: Former smoker Past Alcohol Use History: None Reported Past Drug Use History: None Reported - Past Family History Sister(s) Family Medical History: Cancer, CVA/TIA Additional Family Medical History / Comment(s): breast Cancer in 4 sisters Son(s) Family Medical History: Cancer, Thyroid Disorder Additional Family Medical History / Comment(s): LYMPHOMA, Congential heart problem. Daughter(s) Family Medical History: Cancer Additional Family Medical History / Comment(s): colon cancer Brother(s) Family Medical History: Cancer Additional Family Medical History / Comment(s): ONE BROTHER BLADDER CA, ONE WITH LUNG CA Mother Family Medical History: Cancer Additional Family Medical History / Comment(s): Stomach cancer Father Family Medical History: CVA/TIA Medications and Allergies Home Medications Medication Instructions Recorded Confirmed Type Levothyroxine Sodium [Synthroid] 88 mcg PO QAM 04/28/17 10/03/18 History Acetaminophen [Tylenol Extra 500 mg PO TID PRN 09/26/18 10/03/18 History Strength] Lidocaine-Prilocaine Cream [Emla 1 applic TOPICAL DIRECTED PRN 09/28/18 10/03/18 Rx Cream 2.5%/2.5%] #30 gm Amoxic-Pot Clav 875-125Mg 1 tab PO Q12HR #10 tablet 10/01/18 10/03/18 Rx [Augmentin 875-125] Famotidine [Pepcid] 20 mg PO Q12HR #60 tab 10/01/18 10/03/18 Rx HYDROcodone/APAP 10-325MG [Levant 1 each PO Q6H PRN #10 tab 10/01/18 10/03/18 Rx 10-325] Polyethylene Glycol 3350 [Miralax] 17 gm PO DAILY powd.pack 10/01/18 10/03/18 Rx Ipratropium-Albuterol Nebulize 3 ml INHALATION RT-QID 10/03/18 10/03/18 History [Duoneb 0.5 mg-3 mg/3 ml Soln] Sodium Bicarbonate Tab 1,300 mg PO BID 10/03/18 10/03/18 History Allergies Allergy/AdvReac Type Severity Reaction Status Date / Time Iodinated Contrast- Oral and Allergy Anaphylaxis Verified 10/03/18 16:56 IV Dye [Iodinated Contrast Media - IV Dye] atorvastatin calcium AdvReac Nausea Verified 10/03/18 16:56 [From Lipitor] celecoxib [From Celebrex] AdvReac Nausea Verified 10/03/18 16:56 cephalexin [From Keflex] AdvReac Unknown Verified 10/03/18 16:56 influenza virus vaccine, AdvReac Nausea & Verified 10/03/18 16:56 specific Vomiting & [influenza virus Diarrhea,high vacc,specific] fever Physical Exam Vitals: Vital Signs Temp Pulse Pulse Resp BP BP Pulse Ox 10/04/18 12:05 82 10/04/18 11:54 82 10/04/18 11:36 98 F 86 18 134/60 95 10/04/18 05:21 97.0 F L 78 16 128/63 93 L 10/03/18 23:00 97.7 F 74 18 116/70 94 L 10/03/18 21:00 98.0 F 86 18 118/97 93 L 10/03/18 20:29 98.7 F 82 16 143/81 93 L 10/03/18 16:35 99.0 F 83 20 139/57 90 L Intake and Output 10/03/18 10/04/18 10/04/18 22:59 06:59 14:59 Intake Total 150 300 Balance 150 300 Intake: Intake, IV Titration 150 300 Amount Levofloxacin 750Mg-D5w 150 Pmx 750 mg In Dextrose/ Water 1 150ml.bag @ 100 mls/hr IVPB Q24H [facility] Rx#: [id number] Piperacillin-Tazobactam 3 100 .375 gm In Sodium Chloride 0.9% 100 ml @ 25 mls/hr IVPB ONCE [facility] Rx# :[id number] Sodium Chloride 0.9% 1, 200 000 ml @ 100 mls/hr IV . Q10H [facility] Rx#:[id number] Other: Voiding Method Toilet # Voids 1 2 # Bowel Movements 1 Weight 56.245 kg 56.245 kg - Constitutional General appearance: mild distress - EENT Eyes: PERRLA Ears: bilateral: normal - Neck Neck: normal ROM - Respiratory Respiratory: bilateral: diminished - Cardiovascular Rhythm: regular - Gastrointestinal General gastrointestinal: decreased bowel sounds, soft - Integumentary Erythema to coccyx area - Neurologic Neurologic: CNII-XII intact - Musculoskeletal Musculoskeletal: generalized weakness - Psychiatric Psychiatric: A&O x's 3, appropriate affect, intact judgment & insight Results CBC & Chem 7: 10/03/18 16:50 10/03/18 16:50 Labs: Abnormal Lab Results - Last 24 Hours (Table) 10/03/18 10/03/18 10/03/18 Range/Units 16:50 16:50 17:36 WBC 11.5 H (3.8-10.6) k/uL Hgb 9.8 L D (11.4-16.0) gm/dL Hct 31.4 L (34.0-46.0) % Neutrophils # 9.4 H (1.3-7.7) k/uL Sodium 135 L (137-145) mmol/L Chloride 97 L (98-107) mmol/L Carbon Dioxide 31 H (22-30) mmol/L Glucose 100 H (74-99) mg/dL Calcium 11.7 H (8.4-10.2) mg/dL Total Protein 5.5 L (6.3-8.2) g/dL Albumin 2.8 L (3.5-5.0) g/dL Amylase <30 L (30-110) U/L Urine Appearance Cloudy H (Clear) Ur Leukocyte Esterase Small H (Negative) Urine WBC 20 H (0-5) /hpf Microbiology - Last 24 Hours (Table) 10/03/18 17:36 Urine Culture - Preliminary Urine,Voided Abdominal x-ray: report reviewed CT scan - abdomen: report reviewed Thrombosis Risk Factor Assmnt - Choose All That Apply Any of the Below Risk Factors Present?: Yes Each Factor Represents 1 point: Serious lung disease incl. pneumonia (< 1month) Other Risk Factors: Yes Each Risk Factor Represents 2 Points: Malignancy Each Risk Factor Represents 3 Points: Age 75 years or older Other congenital or acquired thrombophilia - If yes, enter type in comment: No Thrombosis Risk Factor Assessment Total Risk Factor Score: 6 Thrombosis Risk Factor Assessment Level: High Risk Assessment and Plan Plan: Assessment Pneumonia probable healthcare acquired High-grade malignant lymphoma Pleural effusion Ileus Anemia to secondary to chronic disease Paroxysmal atrial fibrillation history History of COPD History of GERD History of osteoarthritis History of bowel resection Plan consultation with pulmonology
--- NOTE | 2018-10-04 12:45 | US ---
EXAMINATION TYPE: US chest DATE OF EXAM: 10/04/2018 COMPARISON: Chest x-ray 10/03/2018 CLINICAL HISTORY: Left pleural effusion TECHNIQUE: Targeted ultrasound of the posterior lower left hemithorax EXAM MEASUREMENTS: Left Pleural Effusion pocket size: 5.0 cm Left skin surface to fluid distance: 1.5 cm Lung seen within mid to anterior portion of fluid pocket Left side MARKED for possible thoracentesis outside the dept. Pulmonologists are able to review the images in the patient?s EMR. IMPRESSIONS: Left pleural effusion
[2018-10-04] MEDS ORDERED: LIDOCAINE-PRILOCAINE 2.5-2.5% CREAM 5 GM TUBE TOPICAL PRN (12:46)
--- NOTE | 2018-10-04 14:30 | CONS ---
CONSULTATION PULMONARY/CRITICAL CARE CONSULTATION This is a pulmonary/critical care consultation for left pleural effusion. This is an 83-year-old female who was seen in the emergency room. She came in apparently with abdominal discomfort. She also apparently had some shortness of breath and minimal cough. We were consulted because of a small left pleural effusion. We did do an ultrasound. The effusion is about 1.5 cm deep and it is about 5 cm in size, not particularly large. The patient is on oxygen, but appears to be relatively comfortable. She does have a history of non-Hodgkin's lymphoma. The patient seems relatively comfortable. She denies any chest pain or chest discomfort. Denies any cough or phlegm production. Denies any wheezing. No fever or chills. I did have a conversation with the patient and the family at the bedside. They understand that if the fluid was relatively smaller, we probably would do nothing about it. MEDICATIONS: Her medications are reviewed. They include levothyroxine, Tylenol, updrafts, sodium bicarbonate tablets, lidocaine, pilocarpine cream, Augmentin, famotidine, Mica, and MiraLAX. ALLERGIES: Allergies include IVP DYE, LIPITOR, CELEBREX, KEFLEX, and INFLUENZA VACCINE. MEDICAL HISTORY: Medical history includes atrial fibrillation, non-Hodgkin's lymphoma, gastroesophageal reflux disease, deafness, hyperlipidemia, DJD, hypothyroidism, chronic constipation, bowel adhesions, previous history of bowel obstruction, right breast cancer, melanoma, osteoporosis, and non-Hodgkin's lymphoma. SURGICAL HISTORY: Surgical history includes among other things bowel resection, appendectomy, breast surgery cholecystectomy, hysterectomy, bilateral cataract surgery, right mastectomy. SOCIAL HISTORY: Social history is significant that she is a lifelong nonsmoker. Denies any illicit drug use or alcohol use. FAMILY HISTORY: Family history is positive for CVA, cancer, lymphoma, hypothyroidism, colon cancer, bladder cancer, and lung cancer. REVIEW OF SYSTEMS: CONSTITUTIONAL: Negative. NEUROLOGIC: Negative. HEENT: Negative. CARDIOVASCULAR: Negative. PULMONARY: Mild shortness of breath seemingly improved. Minimal cough. No phlegm production. GI: Abdominal pain. : Negative. RHEUMATOLOGIC: Negative. IMMUNOLOGIC: Negative. ENDOCRINOLOGIC: Negative. DERMATOLOGIC: Negative. PHYSICAL EXAMINATION: Current vital signs are reviewed. Temperature 98, heart rate 82, respiratory rate 18, blood pressure 134/60, mean 84, room air saturation 95% on 3 L. She is 98%. Appears in no acute distress. HEENT examination is grossly unremarkable. Mucous membranes are moist. Nasal O2 noted. NECK: Supple. Full range of motion. No adenopathy. Cardiovascular examination reveals regular rhythm and rate. S1, S2 normal. No S3, S4, or murmur. Lungs reveal mostly clear breath sounds. A few scattered rhonchi noted. No wheezes or crackles. Slight decreased breath sounds at the left base. ABDOMEN: Soft. Bowel sounds are heard. Extremities are intact. No cyanosis, clubbing, or edema. Skin without rash. Neurologic examination is brief but nonfocal. LABS: Labs are reviewed. White count 11.5, hemoglobin 9.8, hematocrit 31.4, platelet count 315,000. Sodium 135, potassium 3.6, chloride 97, CO2 of 31. BUN and creatinine were 10 and 0.83. Urine is leukocyte esterase positive and there is 20 WBCs in the urine and urine somewhat cloudy. Influenza A and B studies were both negative. Microbiologic studies are negative. Chest x-ray shows bilateral effusions left greater than right, relatively smaller in size. Ultrasound does show a 5 cm pocket on the left side. Medications are reviewed. The patient is on albuterol p.r.n. and Zosyn and Levaquin. The patient is also on updrafts with DuoNeb. ASSESSMENT: 1. Possible pneumonia, although the patient really has a paucity of pulmonary complaints. Her number one issue was abdominal pain. 2. Abdominal discomfort, for which the patient came to the emergency room. 3. Non-Hodgkin's lymphoma. 4. Left-sided pleural effusion relatively smaller in size. 5. No prior history of intrinsic pulmonary disease and lifelong nonsmoker. 6. History of breast cancer. 7. Hypothyroidism. 8. History of atrial fibrillation. 9. History of chronic constipation. 10.Degenerative joint disease. 11.Deafness. 12.Hyperlipidemia. 13.History of melanoma. 14.History of breast cancer with previous mastectomy. 15.Diagnosis of non-Hodgkin's lymphoma. PLAN: The patient's medications will be reviewed. I do not believe she has an overwhelming infection. The patient's medications will be tailored accordingly. The patient can stay on the updrafts for now. We will discuss with her the possibility of thoracentesis, but again I think the fluid is relatively smaller in size. We will continue to follow. Prognosis is guarded. MMODL / IJN: [id number] / MTDD
--- NOTE | 2018-10-04 15:24 | XR ---
EXAMINATION TYPE: XR chest 2V DATE OF EXAM: 10/04/2018 COMPARISON: PET CT September 18, 2018 HISTORY: History of lymphoma with pneumonia per order. TECHNIQUE: Frontal and lateral views of the chest are obtained. FINDINGS: There is new left subclavian Mediport catheter terminating in SVC. There is chronic parenc hymal change with larger small left pleural effusion and associated left basilar atelectasis and/or i nfiltrate. The cardiac silhouette size is enlarged. Right-sided mastectomy changes are redemonstrate d. The osseous structures are demineralized. IMPRESSION: Chronic changes with small left pleural effusion increased from prior and worsening left basilar acute infiltrate and/or atelectasis.
[2018-10-04] MEDS ORDERED: IPRATROPIUM-ALBUTEROL 3 ML NEB INHALATION SCH (16:00)
[2018-10-04] MEDS: FAMOTIDINE 20 MG TAB PO SCH (19:58)
[2018-10-04] MEDS: SODIUM BICARBONATE TAB 650 MG TAB PO SCH (19:58)
[2018-10-04] MEDS ORDERED: LEVOFLOXACIN 750MG-D5W PMX 750 MG in DEXTROSE/WATER 1 150ML.BAG IVPB SCH (20:00)
[2018-10-05] MEDS: ACETAMINOPHEN TAB 500 MG TAB PO PRN ×2 (01:15→11:31)
[2018-10-05] MEDS: SODIUM CHLORIDE 0.9% 1,000 ML IV SCH ×3 (06:03→21:03)
[2018-10-05] MEDS: LEVOTHYROXINE 88 MCG TAB PO SCH (06:04)
[2018-10-05] MEDS: POLYETHYLENE GLYCOL 3350 17 GM POWD.PACK PO SCH (08:01)
[2018-10-05] MEDS: FAMOTIDINE 20 MG TAB PO SCH (08:01)
[2018-10-05] MEDS: SODIUM BICARBONATE TAB 650 MG TAB PO SCH ×2 (08:01→21:01)
[2018-10-05] MEDS: IPRATROPIUM-ALBUTEROL 3 ML NEB INHALATION SCH ×4 (08:22→19:31)
--- NOTE | 2018-10-05 11:42 | P.PN ---
Subjective Patient resting in bed. States abdominal pain improved. Patient was able have a bowel movement. Patient was evaluated by pulmonology for pleural effusion Objective - Vital Signs Vital signs: Vital Signs Temp 97.7 F 10/05/18 05:00 Pulse 84 10/05/18 08:34 Resp 18 10/05/18 08:00 BP 105/56 10/05/18 05:00 Pulse Ox 96 10/05/18 08:23 Intake & Output 10/04/18 10/05/18 10/05/18 18:59 06:59 18:59 Intake Total 500 Balance 500 Weight 56.245 kg Intake: Intake, IV Titration 500 Amount Piperacillin-Tazobactam 3 100 .375 gm In Sodium Chloride 0.9% 100 ml @ 25 mls/hr IVPB Q8H [facility] Rx#: [id number] Sodium Chloride 0.9% 1, 400 000 ml @ 100 mls/hr IV . Q10H [facility] Rx#:[id number] Other: Voiding Method Toilet Toilet # Voids 2 - Constitutional General appearance: Present: mild distress - EENT Eyes: Present: PERRLA Ears: bilateral: normal - Neck Neck: Present: normal ROM - Respiratory Respiratory: bilateral: diminished - Cardiovascular Rhythm: regular - Gastrointestinal General gastrointestinal: Present: normal bowel sounds, soft Localized gastrointestinal: tender: diffuse - Integumentary Integumentary: Present: normal - Neurologic Neurologic: Present: CNII-XII intact - Musculoskeletal Musculoskeletal: Present: generalized weakness - Psychiatric Psychiatric: Present: A&O x's 3, appropriate affect, intact judgment & insight - Labs CBC & Chem 7: 10/03/18 16:50 10/03/18 16:50 Labs: Abnormal Lab Results - Last 24 Hours (Table) 10/04/18 Range/Units 17:12 Procalcitonin 0.13 H (0.02-0.09) ng/mL Microbiology - Last 24 Hours (Table) 10/03/18 19:38 Blood Culture - Preliminary Blood No Growth after 24 hours 10/03/18 17:36 Urine Culture - Final Urine,Voided - Imaging and Cardiology Chest x-ray: report reviewed Assessment and Plan Plan: Assessment Non-Hodgkin's lymphoma high-grade malignant Ileus Pneumonia Anemia chronic disease Left pleural effusion History of atrial fibrillation in sinus rhythm COPD GERD Osteoarthritis History of bowel resection Plan Consultation with gastroenterology for abdominal pain Continue consultation with pulmonology monitoring pleural effusion
--- NOTE | 2018-10-05 15:22 | P.PN ---
Subjective Progress Note Date: 10/05/18 Principal diagnosis: Possible pneumonia, small left pleural effusion This 83-year-old white female patient with past medical history non-Hodgkin's lymphoma, hemoglobin to the hospital on 10/03/2018 with shortness of breath and minimal cough. Denied any chest pain or chest discomfort, denied any chest congestion and phlegm production no wheezing, no fever or chills. Fluids and be were negative. Chest x-ray showed bilateral pleural effusions left greater than the right, relatively small in size. Ultrasound of the chest showed a 5 cm pocket on the left side. She was placed on empiric antibiotics in the form of Zosyn and Levaquin she is on formerly [facility]. She seen in follow-up on oncology floor, she is on room air, with a pulse ox of 94-96%, she is afebrile, hemodynamically patient is stable. No cough or chest congestion, no chest discomfort. Blood and urine cultures were negative. She continues on Levaquin for empiric antibiotic coverage, Zosyn has been discontinued. Lung sounds reveal diminished breath sounds at the bases, no rhonchi or wheezes Objective - Vital Signs Vital signs: Vital Signs Temp 98 F 10/05/18 12:49 Pulse 80 10/05/18 13:51 Resp 18 10/05/18 12:49 BP 177/49 10/05/18 12:49 Pulse Ox 94 L 10/05/18 14:45 Intake & Output 10/04/18 10/05/18 10/05/18 18:59 06:59 18:59 Intake Total 500 Balance 500 Weight 56.245 kg Intake: Intake, IV Titration 500 Amount Piperacillin-Tazobactam 3 100 .375 gm In Sodium Chloride 0.9% 100 ml @ 25 mls/hr IVPB Q8H [facility] Rx#: [id number] Sodium Chloride 0.9% 1, 400 000 ml @ 100 mls/hr IV . Q10H [facility] Rx#:[id number] Other: Voiding Method Toilet Toilet # Voids 2 - Exam GENERAL EXAM: Alert, pleasant, 83-year-old white female comfortable in no apparent distress. HEAD: Normocephalic/atraumatic. EYES: Normal reaction of pupils, equal size. Conjunctiva pink, sclera white. NOSE: Clear with pink turbinates. THROAT: No erythema or exudates. NECK: No masses, no JVD, no thyroid enlargement, no adenopathy. CHEST: No chest wall deformity. Symmetrical expansion. LUNGS: Equal air entry with diminished breath sounds at bases, no significant rhonchi or wheezes CVS: Regular rate and rhythm, normal S1 and S2, no gallops, no murmurs, no rubs ABDOMEN: Soft, nontender. No hepatosplenomegaly, normal bowel sounds, no guarding or rigidity. EXTREMITIES: No clubbing, no edema, no cyanosis, 2+ pulses and upper and lower extremities. MUSCULOSKELETAL: Muscle strength and tone normal. SPINE: No scoliosis or deformity SKIN: No rashes CENTRAL NERVOUS SYSTEM: Alert and oriented -3. No focal deficits, tone is normal in all 4 extremities. PSYCHIATRIC: Alert and oriented -3. Appropriate affect. Intact judgment and insight. - Labs CBC & Chem 7: 10/03/18 16:50 10/03/18 16:50 Labs: Abnormal Lab Results - Last 24 Hours (Table) 10/04/18 Range/Units 17:12 Procalcitonin 0.13 H (0.02-0.09) ng/mL Microbiology - Last 24 Hours (Table) 10/03/18 19:38 Blood Culture - Preliminary Blood No Growth after 24 hours 10/03/18 17:36 Urine Culture - Final Urine,Voided Assessment and Plan Plan: Assessment: #1. Small left-sided pleural effusion, some the chest showed a 5 cm pocket on the left #2. Possible left basilar pneumonia, difficult to exclude #3. History of non-Hodgkin's lymphoma #4. History of breast cancer, previous mastectomy #5. Hypothyroidism #6. Hyperlipidemia #7. History of melanoma Plan: Continue current medical treatment, continue the antibiotics, vital signs are stable, no acute complaints, no worsening dyspnea, she is maintaining good O2 saturations on room air, no cough or chest congestion. Left pleural effusion is small in size, and there is no plan for drainage. I performed a history & physical examination of the patient and discussed their management with my nurse practitioner, Linda García. I reviewed the nurse practitioner's note and agree with the documented findings and plan of care. Lung sounds are positive for diminished breath sounds. The findings and the impression was discussed with the patient. I attest to the documentation by the nurse practitioner. Time with Patient: Less than 30
[2018-10-05] MEDS: HYDROcodone/APAP 10-325MG 1 EACH TAB PO PRN (16:18)
[2018-10-05] MEDS ORDERED: LEVOFLOXACIN 750 MG TAB PO SCH (20:00)
--- NOTE | 2018-10-05 21:39 | P.CONS ---
History of Present Illness - Reason for Consult Consult date: 10/05/18 Abdominal pain Requesting physician: Rob Arias - Chief Complaint Abdominal pain - History of Present Illness A 3-year-old female with a medical history significant for non-Hodgkin's lymphoma, COPD, GERD and osteoarthritis who presented to the hospital with complaints of abdominal pain and shortness of breath. The patient reports shortness of breath with associated cough and was started on antibiotic therapy for treatment of possible pneumonia. In addition the patient has reported abdominal pain. She reports that this pain is across her whole abdomen, it is described as sharp and stabbing in nature. Worse in the lower abdomen the pain will come and go. She reports bowel movements every 4 days prior to presentation. Since being admitted the patient reports that she has been having soft bowel movements every day. On her prior admission the patient was noted to be constipated and started on a bowel regimen. In addition the patient is followed up with the surgical service in the outpatient setting and there is concern for adhesions with discussion of possible exploratory laparotomy with lysis of adhesions which has been postponed due to the patient's recent diagnosis of high-grade non-Hodgkin's lymphoma. Currently the patient is receiving Pepcid and MiraLAX therapy. Review of Systems REVIEW OF SYSTEMS: CONSTITUTIONAL: Denies any fevers, chills, weight change or fatigue. CARDIOVASCULAR: Denies any chest pain, palpitations high or low blood pressures RESPIRATORY: Denies hemoptysis but did report shortness of breath and cough on presentation. GENITOURINARY: No dysuria or hematuria. MUSCULOSKELETAL: No weakness reported. SKIN: Denies any new rashes or lesions, jaundice or pallor. PSYCHIATRIC: Denies any depression or anxiety. NEUROLOGY: Denies headache, denies any new focal deficits. EARS/NOSE/THROAT: No recent hearing change, congestion, nasal discharge or sore throat. EYES: No pain in eyes, discharge or change in vision. GASTROINTESTINAL: As per HPI. Past Medical History Past Medical History: Atrial Fibrillation, Cancer, COPD, GERD/Reflux, Hearing Disorder / Deafness, Hyperlipidemia, Musculoskeletal Disorder, Osteoarthritis (OA), Pneumonia, Thyroid Disorder Additional Past Medical History / Comment(s): Constipation, bowel adhesions. Hx bowel obstruction, right breast cancer-1997 no chemo or radiation, melanoma face 2014, osteoporosis, pneumonia Aug 2016, Lymphoma History of Any Multi-Drug Resistant Organisms: MRSA Year Discovered:: 2010? MDRO Source:: post surgical wound from bowel resection Past Surgical History: Appendectomy, Bowel Resection, Breast Surgery, Cholecystectomy, Hysterectomy Additional Past Surgical History / Comment(s): Bilateral cataracts, right mastectomy. Past Anesthesia/Blood Transfusion Reactions: No Reported Reaction Additional Past Anesthesia/Blood Transfusion Reaction / Comm: no hx blood transfusion Past Psychological History: No Psychological Hx Reported Smoking Status: Former smoker Past Alcohol Use History: None Reported Past Drug Use History: None Reported - Past Family History Sister(s) Family Medical History: Cancer, CVA/TIA Additional Family Medical History / Comment(s): breast Cancer in 4 sisters Son(s) Family Medical History: Cancer, Thyroid Disorder Additional Family Medical History / Comment(s): LYMPHOMA, Congential heart pro blem. Daughter(s) Family Medical History: Cancer Additional Family Medical History / Comment(s): colon cancer Brother(s) Family Medical History: Cancer Additional Family Medical History / Comment(s): ONE BROTHER BLADDER CA, ONE WITH LUNG CA Mother Family Medical History: Cancer Additional Family Medical History / Comment(s): Stomach cancer Father Family Medical History: CVA/TIA Medications and Allergies Home Medications Medication Instructions Recorded Confirmed Type Levothyroxine Sodium [Synthroid] 88 mcg PO QAM 04/28/17 10/03/18 History Acetaminophen [Tylenol Extra 500 mg PO TID PRN 09/26/18 10/03/18 History Strength] Lidocaine-Prilocaine Cream [Emla 1 applic TOPICAL DIRECTED PRN 09/28/18 10/03/18 Rx Cream 2.5%/2.5%] #30 gm Amoxic-Pot Clav 875-125Mg 1 tab PO Q12HR #10 tablet 10/01/18 10/03/18 Rx [Augmentin 875-125] Famotidine [Pepcid] 20 mg PO Q12HR #60 tab 10/01/18 10/03/18 Rx HYDROcodone/APAP 10-325MG [[place] 1 each PO Q6H PRN #10 tab 10/01/18 10/03/18 Rx 10-325] Polyethylene Glycol 3350 [Miralax] 17 gm PO DAILY powd.pack 10/01/18 10/03/18 Rx Ipratropium-Albuterol Nebulize 3 ml INHALATION RT-QID 10/03/18 10/03/18 History [Duoneb 0.5 mg-3 mg/3 ml Soln] Sodium Bicarbonate Tab 1,300 mg PO BID 10/03/18 10/03/18 History Allergies Allergy/AdvReac Type Severity Reaction Status Date / Time Iodinated Contrast- Oral and Allergy Anaphylaxis Verified 10/03/18 16:56 IV Dye [Iodinated Contrast Media - IV Dye] atorvastatin calcium AdvReac Nausea Verified 10/03/18 16:56 [From Lipitor] celecoxib [From Celebrex] AdvReac Nausea Verified 10/03/18 16:56 cephalexin [From Keflex] AdvReac Unknown Verified 10/03/18 16:56 influenza virus vaccine, AdvReac Nausea & Verified 10/03/18 16:56 specific Vomiting & [influenza virus Diarrhea,high vacc,specific] fever Physical Exam Vitals: Vital Signs Temp Pulse Pulse Resp BP Pulse Ox Pulse Ox 10/05/18 19:36 80 10/05/18 19:32 80 10/05/18 16:00 88 18 10/05/18 15:56 84 10/05/18 15:49 88 10/05/18 14:45 94 L 10/05/18 13:51 80 96 10/05/18 12:49 98 F 88 18 177/49 94 L 10/05/18 08:34 84 10/05/18 08:23 85 96 10/05/18 08:00 75 18 10/05/18 05:00 97.7 F 75 18 105/56 94 L Intake and Output 10/05/18 10/05/18 10/05/18 06:59 14:59 22:59 Other: Voiding Method Toilet Toilet # Voids 2 3 # Bowel Movements 2 On physical examination, patient appears comfortable in no apparent distress. HEAD: Normocephalic, atraumatic. EYES: No scleral icterus. No conjunctival injection. MOUTH: No lesions, tongue midline. NECK: Trachea midline, no gross abnormalities. CHEST: Decreased air entry bilaterally. HEART: Regular rate and rhythm. ABDOMEN: Soft, mildly tender to palpation in all quadrants. Bowel sounds are positive. No organomegaly. No guarding or rigidity. EXTREMITIES: No pedal edema. SKIN: No rashes, no jaundice. NEUROLOGIC: Alert and oriented x3. No focal deficits. Results CBC & Chem 7: 10/03/18 16:50 10/03/18 16:50 Labs: Abnormal Lab Results - Last 24 Hours (Table) 10/04/18 Range/Units 17:12 Procalcitonin 0.13 H (0.02-0.09) ng/mL Microbiology - Last 24 Hours (Table) 10/03/18 19:38 Blood Culture - Preliminary Blood No Growth after 24 hours 10/03/18 17:36 Urine Culture - Final Urine,Voided Abdominal x-ray: report reviewed (X-ray of the abdomen with findings suggestive of possible ileus.) Assessment and Plan (1) Abdominal pain Narrative/Plan: Patient presenting back to the hospital with recurrent episodes of abdominal bi n, this likely is multifactorial in the setting of adhesions from prior intra- abdominal surgeries, constipation and lymphadenopathy in the setting of non- Hodgkin's lymphoma. Current Visit: No Status: Acute Priority: High Code(s): R10.9 - UNSPECIFIED ABDOMINAL PAIN SNOMED Code(s): 71818568 (2) Constipation Current Visit: No Status: Acute Code(s): K59.00 - CONSTIPATION, UNSPECIFIED SNOMED Code(s): 75296726 (3) High grade malignant lymphoma Current Visit: Yes Status: Acute Priority: High Code(s): C85.90 - NON-HODGKIN LYMPHOMA, UNSPECIFIED, UNSPECIFIED SITE SNOMED Code(s): 417959854 Plan: Supportive care Okay for diet Patient currently on MiraLAX therapy, will titrate according to bowel movements (currently reporting daily soft bowel movements) Continue Pepcid therapy We'll order repeat x-ray of the abdomen in the morning Will add Bentyl 3 times a day for abdominal cramping Thank you for allowing us to participate in the care of the patient we will co elias to follow
[2018-10-05] MEDS: DICYCLOMINE 10 MG CAP PO SCH (22:02)
[2018-10-06] MEDS: HYDROcodone/APAP 10-325MG 1 EACH TAB PO PRN (00:15)
[2018-10-06] MEDS: DICYCLOMINE 10 MG CAP PO SCH ×2 (00:17→07:40)
[2018-10-06] MEDS: LEVOTHYROXINE 88 MCG TAB PO SCH (05:57)
[2018-10-06] MEDS: POLYETHYLENE GLYCOL 3350 17 GM POWD.PACK PO SCH (07:38)
[2018-10-06] MEDS: SODIUM BICARBONATE TAB 650 MG TAB PO SCH (07:38)
[2018-10-06] MEDS: SODIUM CHLORIDE 0.9% 1,000 ML IV SCH (07:39)
[2018-10-06] MEDS: IPRATROPIUM-ALBUTEROL 3 ML NEB INHALATION SCH ×2 (08:44→12:54)
[2018-10-06] MEDS ORDERED: FAMOTIDINE 20 MG TAB PO SCH (09:00)
--- NOTE | 2018-10-06 10:52 | XR ---
EXAMINATION TYPE: XR abdomen 1V DATE OF EXAM: 10/06/2018 COMPARISON: 09/30/2018 INDICATION: Abdominal pain constipation TECHNIQUE: Single view abdomen frontal supine view FINDINGS: Nonspecific bowel gas is present within small bowel loops as well as the colon. Prominent small bowel loops are not evident at this time. Psoas margins are normal. No organomegaly is present. Cholecystectomy clips are in the right upper quadrant. Osseous structures appear unremarkable. There is some scoliosis within the lumbar spine. IMPRESSION: 1. Nonspecific abdomen
--- NOTE | 2018-10-06 11:35 | P.PN ---
Subjective Patient states improvement cleared for discharge per pulmonology. Abdominal x- ray nonspecific no obstruction noted. Patient was a readmission for complaints of abdominal pain. Patient severely diagnosed non-Hodgkin's lymphoma. Patient noted to have left pleural effusion we'll monitor patient states some relief. Patient to follow-up with oncology and family physician Assessment High-grade malignant lymphoma non-Hodgkin's Ileus Pleural effusion Pneumonia hospital-acquired Anemia chronic disease History of atrial fibrillation in sinus rhythm History of COPD GERD Osteoarthritis Recent bowel resection Plan Follow-up with oncology for lymphoma treatment Follow-up with family physician Objective - Vital Signs Vital signs: Vital Signs Temp 97.7 F 10/06/18 05:00 Pulse 82 10/06/18 08:56 Resp 16 10/06/18 08:00 BP 138/64 10/06/18 05:00 Pulse Ox 95 10/06/18 05:00 Intake & Output 10/05/18 10/06/18 10/06/18 18:59 06:59 18:59 Intake Total 1600 480 Balance 1600 480 Intake: Intake, IV Titration 1600 Amount Sodium Chloride 0.9% 1, 1600 000 ml @ 100 mls/hr IV . Q10H [facility] Rx#:[id number] Oral 480 Other: Voiding Method Toilet Toilet Toilet # Voids 3 1 # Bowel Movements 2 - Labs CBC & Chem 7: 10/03/18 16:50 10/03/18 16:50 Labs: Microbiology - Last 24 Hours (Table) 10/03/18 19:38 Blood Culture - Preliminary Blood No Growth after 48 hours
[2018-10-06 11:48] VITALS: BP 154/73; PULSE 76; RESP 17; TEMP 97.3
--- NOTE | 2018-10-06 13:41 | P.DS ---
Providers Date of admission: 10/03/18 19:45 Expected date of discharge: 10/06/18 Attending physician: Rob Arias Consults: 10/04/18 10:12 Consult Physician Urgent Consulting Provider: Neela Torre Consult Reason/Comments: pneumonia pleural effusion Do you want consulting provider notified?: Yes 10/04/18 12:45 Consult Physician Urgent Consulting Provider: Serg Lara Consult Reason/Comments: abd pain Do you want consulting provider notified?: Yes Primary care physician: Rob Arias Hospital Course: 83-year-old female was admitted through the emergency room with complaints of abdominal pain. Patient is a new diagnosis of non-Hodgkin's lymphoma. This is a readmission. Patient has been cleared by pulmonology for pneumonia. Abdominal x- ray this morning was nonspecific no indications of obstruction. Patient was evaluated by pulmonology and gastroenterology Assessment high-grade malignant lymphoma non-Hodgkin's [place] pleural effusion to be monitor by pulmonology pneumonia hospital acquired anemia of chronic disease history of atrial fibrillation in sinus rhythm history of COPD GERD osteoarthritis recent bowel resection Plan follow up with oncology for lymphoma treatment follow up with family physician Dr. Rob Arias Patient Condition at Discharge: Fair Plan - Discharge Summary Discharge Rx Participant: No New Discharge Prescriptions: New Dicyclomine [Bentyl] 10 mg PO TID #30 cap Levofloxacin [Levaquin] 750 mg PO DAILY@1999 7 Days #7 tab Continue Levothyroxine Sodium [Synthroid] 88 mcg PO QAM Acetaminophen [Tylenol Extra Strength] 500 mg PO TID PRN PRN Reason: Pain Lidocaine-Prilocaine Cream [Emla Cream 2.5%/2.5%] 1 applic TOPICAL DIRECTED PRN #30 gm PRN Reason: Painful Procedures Polyethylene Glycol 3350 [Miralax] 17 gm PO DAILY powd.pack Famotidine [Pepcid] 20 mg PO Q12HR #60 tab HYDROcodone/APAP 10-325MG [[place] 10-325] 1 each PO Q6H PRN #10 tab PRN Reason: Pain Sodium Bicarbonate Tab 1,300 mg PO BID Discontinued Amoxic-Pot Clav 875-125Mg [Augmentin 875-125] 1 tab PO Q12HR #10 tablet Ipratropium-Albuterol Nebulize [Duoneb 0.5 mg-3 mg/3 ml Soln] 3 ml INHALATION RT-QID Discharge Medication List Levothyroxine Sodium [Synthroid] 88 mcg PO QAM 04/28/17 [History] Acetaminophen [Tylenol Extra Strength] 500 mg PO TID PRN 09/26/18 [History] Lidocaine-Prilocaine Cream [Emla Cream 2.5%/2.5%] 1 applic TOPICAL DIRECTED PRN #30 gm 09/28/18 [Rx] Famotidine [Pepcid] 20 mg PO Q12HR #60 tab 10/01/18 [Rx] HYDROcodone/APAP 10-325MG [[place] 10-325] 1 each PO Q6H PRN #10 tab 10/01/18 [Rx] Polyethylene Glycol 3350 [Miralax] 17 gm PO DAILY powd.pack 10/01/18 [Rx] Sodium Bicarbonate Tab 1,300 mg PO BID 10/03/18 [History] Dicyclomine [Bentyl] 10 mg PO TID #30 cap 10/06/18 [Rx] Levofloxacin [Levaquin] 750 mg PO DAILY@1999 7 Days #7 tab 10/06/18 [Rx] Follow up Appointment(s)/Referral(s): Rob Arias MD [Primary Care Provider] - 10/12/18 2:00 pm [facility], [NON-STAFF] - 1 Week Wilson Kennedy MD [STAFF PHYSICIAN] - 10/07/18 3:00 pm Discharge Disposition: HOME WITH HOME HEALTH SERVICES
--- NOTE | 2018-10-06 14:34 | P.PN ---
Subjective Progress Note Date: 10/06/18 Principal diagnosis: Possible pneumonia, small left pleural effusion This 83-year-old white female patient with past medical history non-Hodgkin's lymphoma, hemoglobin to the hospital on 10/03/2018 with shortness of breath and minimal cough. Denied any chest pain or chest discomfort, denied any chest congestion and phlegm production no wheezing, no fever or chills. Fluids and be were negative. Chest x-ray showed bilateral pleural effusions left greater than the right, relatively small in size. Ultrasound of the chest showed a 5 cm pocket on the left side. She was placed on empiric antibiotics in the form of Zosyn and Levaquin she is on formerly [facility]. She seen in follow-up on oncology floor, she is on room air, with a pulse ox of 94-96%, she is afebrile, hemodynamically patient is stable. No cough or chest congestion, no chest discomfort. Blood and urine cultures were negative. She continues on Levaquin for empiric antibiotic coverage, Zosyn has been discontinued. Lung sounds reveal diminished breath sounds at the bases, no rhonchi or wheezes On 10/06/2018 patient seen in follow-up on medical oncology floor. She is sitting up in bed, in no acute distress, she is awake alert oriented 3, denies any shortness of breath, denies any chest pain, she is on 2 L of oxygen per nasal cannula pulse ox is 94%, she is afebrile, hemodynamically stable. Patient has only occasional cough, with rare production of whitish colored phlegm. No new labs today, blood and urine cultures are negative. Acute events overnight, sounds reveal diminished breath sounds over left lower lung, some limited crackles. She is doing well, denies any shortness of breath chest pain, from pulmonary perspective she stable for discharge home today. Objective - Vital Signs Vital signs: Vital Signs Temp 97.3 F L 10/06/18 11:48 Pulse 76 10/06/18 11:48 Resp 17 10/06/18 11:48 BP 154/73 10/06/18 11:48 Pulse Ox 94 L 10/06/18 12:51 Intake & Output 10/05/18 10/06/18 10/06/18 18:59 06:59 18:59 Intake Total 1600 8840 Balance 1600 8840 Intake: Intake, IV Titration 1600 8000 Amount Sodium Chloride 0.9% 1, 1600 8000 000 ml @ 100 mls/hr IV . Q10H [facility] Rx#:[id number] Oral 840 Other: Voiding Method Toilet Toilet Toilet # Voids 3 1 3 # Bowel Movements 2 - Exam GENERAL EXAM: Alert, pleasant, 83-year-old white female comfortable in no apparent distress. HEAD: Normocephalic/atraumatic. EYES: Normal reaction of pupils, equal size. Conjunctiva pink, sclera white. NOSE: Clear with pink turbinates. THROAT: No erythema or exudates. NECK: No masses, no JVD, no thyroid enlargement, no adenopathy. CHEST: No chest wall deformity. Symmetrical expansion. LUNGS: Equal air entry with diminished breath sounds at bases, no significant rhonchi or wheezes CVS: Regular rate and rhythm, normal S1 and S2, no gallops, no murmurs, no rubs ABDOMEN: Soft, nontender. No hepatosplenomegaly, normal bowel sounds, no guarding or rigidity. EXTREMITIES: No clubbing, no edema, no cyanosis, 2+ pulses and upper and lower extremities. MUSCULOSKELETAL: Muscle strength and tone normal. SPINE: No scoliosis or deformity SKIN: No rashes CENTRAL NERVOUS SYSTEM: Alert and oriented -3. No focal deficits, tone is normal in all 4 extremities. PSYCHIATRIC: Alert and oriented -3. Appropriate affect. Intact judgment and insight. - Labs CBC & Chem 7: 10/03/18 16:50 10/03/18 16:50 Labs: Microbiology - Last 24 Hours (Table) 10/03/18 19:38 Blood Culture - Preliminary Blood No Growth after 48 hours Assessment and Plan Plan: Assessment: #1. Small left-sided pleural effusion, some the chest showed a 5 cm pocket on the left #2. Possible left basilar pneumonia, difficult to exclude #3. History of non-Hodgkin's lymphoma #4. History of breast cancer, previous mastectomy #5. Hypothyroidism #6. Hyperlipidemia #7. History of melanoma Plan: From pulmonary perspective patient remains stable, denies any shortness of breath, denies any chest pain, no cough or congestion. Afebrile. Cultures are negative thus far. Small left pleural effusion, no plans for drainage. From pulmonary perspective patient is stable for discharge home today on oral course of antibiotics. I performed a history & physical examination of the patient and discussed their management with my nurse practitioner, Linda García. I reviewed the nurse practitioner's note and agree with the documented findings and plan of care. Lung sounds are positive for diminished breath sounds. The findings and the impression was discussed with the patient. I attest to the documentation by the nurse practitioner. Time with Patient: Less than 30
== END 2018-10-06 14:30 | disposition home health service (06) | DRG 388 ==
LOC: EC 16:34 → 4MS4W 19:45 → 3NMEDONC 21:11
PROVIDERS: ADMIT Family Medicine; ATTEND Family Medicine
DX: K56.7 Ileus, unspecified (principal); J18.9 Pneumonia, unspecified organism; J44.0 Chronic obstructive pulmonary disease with (acute) lower respiratory infection; C81.90 Hodgkin lymphoma, unspecified, unspecified site; I48.0 Paroxysmal atrial fibrillation; D63.8 Anemia in other chronic diseases classified elsewhere; M19.90 Unspecified osteoarthritis, unspecified site; K21.9 Gastro-esophageal reflux disease without esophagitis; H91.90 Unspecified hearing loss, unspecified ear; E78.5 Hyperlipidemia, unspecified; M81.0 Age-related osteoporosis without current pathological fracture; E03.9 Hypothyroidism, unspecified; Y95 Nosocomial condition; Z68.21 Body mass index [BMI] 21.0-21.9, adult; Z71.3 Dietary counseling and surveillance; Z79.899 Other long term (current) drug therapy; Z79.890 Hormone replacement therapy; Z86.14 Personal history of Methicillin resistant Staphylococcus aureus infection; Z85.3 Personal history of malignant neoplasm of breast; Z85.820 Personal history of malignant melanoma of skin; Z87.891 Personal history of nicotine dependence; Z90.710 Acquired absence of both cervix and uterus; Z90.49 Acquired absence of other specified parts of digestive tract; Z98.42 Cataract extraction status, left eye; Z98.41 Cataract extraction status, right eye; Z88.7 Allergy status to serum and vaccine; Z88.8 Allergy status to other drugs, medicaments and biological substances; Z90.11 Acquired absence of right breast and nipple; Z88.1 Allergy status to other antibiotic agents; Z91.041 Radiographic dye allergy status; Z82.3 Family history of stroke; Z80.7 Family history of other malignant neoplasms of lymphoid, hematopoietic and related tissues; Z80.0 Family history of malignant neoplasm of digestive organs; Z80.3 Family history of malignant neoplasm of breast; Z80.52 Family history of malignant neoplasm of bladder; Z80.1 Family history of malignant neoplasm of trachea, bronchus and lung; Z83.49 Family history of other endocrine, nutritional and metabolic diseases
CPT/HCPCS: 36415; 71046; 74018; 74022; 74177; 76604; 80053; 81001; 82150; 83605; 83690; 84145; 85025; 87040; 87086; 87502; 94640; 94760; 96361; 96365; 96375; 99285

== ENCOUNTER → 2018-10-18 | Outpatient (CLI) | payer MEDICARE ==
--- NOTE | 2018-10-18 11:59 | XR ---
EXAMINATION TYPE: XR chest 2V DATE OF EXAM: 10/18/2018 COMPARISON: Chest x-ray October 04, 2018. HISTORY: Hypoxia. History of lymphoma. Background chronic emphysematous change is noted. TECHNIQUE: Frontal and lateral views of the chest are obtained. FINDINGS: There is left subclavian Mediport catheter redemonstrated. There is persistent left basila r opacity consistent with small left pleural effusion and associated left basilar atelectasis and/or infiltrate. Improved aeration right lung is noted. The cardiac silhouette size is stable and upper l imits of normal. The osseous structures are demineralized. Right axillary surgical clips are redemo nstrated from right-sided mastectomy with absent right breast shadow noted IMPRESSION: Chronic emphysematous change with persistent small left pleural effusion and associated left basilar atelectasis and/or infiltrate. Improved aeration right lung base. No new infiltrate is s een.
== END | disposition home or self-care (01) ==
LOC: RADXRMAIN 10:24
PROVIDERS: ATTEND Family Medicine
DX: J43.9 Emphysema, unspecified (principal); J90 Pleural effusion, not elsewhere classified; J98.11 Atelectasis
CPT/HCPCS: 71046

== ENCOUNTER → 2018-12-04 | Outpatient (CLI) | payer MEDICARE ==
--- NOTE | 2018-12-04 12:15 | PE ---
EXAMINATION TYPE: PET CT fusion skull to thigh DATE OF EXAM: 12/04/2018 COMPARISON: Prior PET/CT September 18, 2018. CT abdomen and pelvis October 03, 2018 and older CTs. HISTORY: Non-Hodgkin lymphoma originally diagnosed left axilla completed chemotherapy November 30. TECHNIQUE: Following the intravenous administration of 10.62 mCi of F-18 FDG, whole body images are performed from the skull base to the midthigh. Images are reviewed on the computer in the coronal, a xial, and sagittal planes. Reconstructed rotating images are created on independent workstation and reviewed on the computer. A noncontrast CT is performed in conjunction with the PET scan. SCAN: Subsequent Scan FINDINGS: MEAN SUV MEDIASTINUM: 0.90 MEAN SUV LIVER: 1.81 SKULL BASE AND NECK: Marked interval improvement in left supraclavicular and axillary adenopathy wit hout residual hypermetabolic uptake or enlarged lymph nodes identified currently. CHEST, MEDIASTINUM, AND HILAR REGION: There is fairly stable appearing spiculated hypermetabolic nodu le posterior left upper lobe measuring 1.8 x 1.7 cm on axial image 67 with max SUV of 4.42. There is marked interval improvement in left intramammary hypermetabolic enlarged lymph nodes and med iastinal lymph nodes without residual enlarged or hypermetabolic lymph nodes identified on current st udy. No new areas of hypermetabolic uptake are present. ABDOMEN AND PELVIS: Marked interval improvement in splenomegaly and prior visualized abnormal hyperme tabolic uptake. Marked interval improvement in abnormal hypermetabolic retroperitoneal adenopathy throughout the abdo men and pelvis extending into bilateral groin region. No suspicious enlarged lymph nodes or hypermeta bolic lymph nodes are identified on current study. OSSEOUS STRUCTURES: Mild diffuse uptake is presumed posttreatment response. No new areas of suspiciou s hypermetabolic uptake. OTHER CT: There is new left subclavian Mediport catheter terminating in SVC. Scleral calcification ri ght globe is redemonstrated. Cardiomegaly with small to tiny pericardial effusion is redemonstrated. Interval resolution of small left pleural effusion. Coronary artery calcifications redemonstrated along with calcifications along the aortic and mitral valves. Cholecystectomy clips are redemonstrated. There is moderate calcified plaque of aorta extending into iliac branch vessels. There is low lying slightly prominent cecum into the right pelvis. Uterus is poe rgically absent. There is small fat-containing umbilical hernia. Slight thickening to both adrenal gl ands without hypermetabolic uptake is redemonstrated and stable. There is ductal convex scoliosis centered in the mid lumbar spine with multilevel facet uropathy in t he mid to lower lumbar spine. IMPRESSION: Positive treatment response with resolution of abnormal enlarged lymph nodes and hypermet abolic uptake. Stable appearing hypermetabolic left upper lobe spiculated nodule raises concern for s econdary neoplasm or primary lung carcinoma. No new areas of suspicious hypermetabolic uptake are not ed.
== END | disposition home or self-care (01) ==
LOC: RADPETMAIN 07:50
PROVIDERS: ATTEND Internal Medicine Hematology & Oncology
DX: C83.34 Diffuse large B-cell lymphoma, lymph nodes of axilla and upper limb (principal)
CPT/HCPCS: 78815; A9552

== ENCOUNTER → 2018-12-06 | Outpatient (CLI) | payer MEDICARE ==
--- NOTE | 2018-12-07 10:38 | ECHOF ---
Referral Reason:C83.34 Lymphoma; Z81.8 chemo MEASUREMENTS -------- HEIGHT: 165.1 cm WEIGHT: 56.2 kg BP: 114/73 RVIDd: 2.8 cm (< 3.3) IVSd: 1.0 cm (0.6 - 1.1) LVIDd: 3.7 cm (3.9 - 5.3) LVPWd: 1.3 cm (0.6 - 1.1) IVSs: 1.2 cm LVIDs: 3.1 cm LVPWs: 2.0 cm LA Diam: 2.9 cm (2.7 - 3.8) LAESV Index (A-L): 23.00 ml/m Ao Diam: 3.3 cm (2.0 - 3.7) AV Cusp: 1.9 cm (1.5 - 2.6) MV EXCURSION: 11.562 mm (> 18.000) MV EF SLOPE: 11 mm/s (70 - 150) EPSS: 0.6 cm MV E Elias: 0.86 m/s MV DecT: 218 ms MV A Elias: 1.33 m/s MV E/A Ratio: 0.65 AR PHT: 552 ms RAP: 5.00 mmHg RVSP: 29.66 mmHg FINDINGS -------- Sinus rhythm. This was a technically good study. The left ventricular size is normal. There is mild concentric left ventricular hypertrophy. Overa ll left ventricular systolic function is low-normal with, an EF between 50 - 55 %. The right ventricle is normal in size. Normal LA size by volume 22+/-6 ml/m2. The right atrium is normal in size. Interatrial and interventricular septum intact. There is mild aortic valve sclerosis. There is rrzg-tx-[id number] aortic regurgitation. The mitral valve leaflets are mildly thickened. Mild mitral annular calcification present. Mild tricuspid regurgitation present. Right ventricular systolic pressure is normal at < 35 mmHg. Trace/mild (physiologic) pulmonic regurgitation. The aortic root size is normal. Normal inferior vena cava with normal inspiratory collapse consistent with estimated right atrial pre ssure of 5 mmHg. There is no pericardial effusion. CONCLUSIONS -------- 1. Sinus rhythm. 2. This was a technically good study. 3. The left ventricular size is normal. 4. There is mild concentric left ventricular hypertrophy. 5. Overall left ventricular systolic function is low-normal with, an EF between 50 - 55 %. 6. The right ventricle is normal in size. 7. Normal LA size by volume 22+/-6 ml/m2. 8. The right atrium is normal in size. 9. Interatrial and interventricular septum intact. 10. There is mild aortic valve sclerosis. 11. There is yzyu-vj-viynrodo aortic regurgitation. 12. The mitral valve leaflets are mildly thickened. 13. Mild mitral annular calcification present. 14. Mild tricuspid regurgitation present. 15. Right ventricular systolic pressure is normal at < 35 mmHg. 16. Trace/mild (physiologic) pulmonic regurgitation. 17. The aortic root size is normal. 18. Normal inferior vena cava with normal inspiratory collapse consistent with estimated right atrial pressure of 5 mmHg. 19. There is no pericardial effusion. CONTENT STRATEGIST: Chasity Ray RDCS
== END | disposition home or self-care (01) ==
LOC: RADECHMAIN 15:32
PROVIDERS: ATTEND Internal Medicine Hematology & Oncology
DX: Z01.818 Encounter for other preprocedural examination (principal); C83.34 Diffuse large B-cell lymphoma, lymph nodes of axilla and upper limb; I08.3 Combined rheumatic disorders of mitral, aortic and tricuspid valves
CPT/HCPCS: 93306

== ENCOUNTER → 2019-01-14 | Outpatient (CLI) | payer MEDICARE ==
[2019-01-14 12:11] VITALS: BP 123/72; PULSE 79; RESP 16; TEMP 97.9; BMI 24.7
--- NOTE | 2019-01-14 12:49 | P.PN ---
Subjective Progress Note Date: 01/14/19 Principal diagnosis: B cell lymphoma Marsha is an 83-year-old white female status post right axillary node biopsy in September 2018. Pathology was positive for B-cell lymphoma. She has subsequently undergone 4 courses of chemotherapy. She was recently told by the medical oncologist that she is stable doing well and they will see her again on January 27. She did not have any radiation therapy. Patient is status post right mastectomy in 1999. She was treated with Imitrex for 5 years. She subsequently had skin cancer on the left cheek and nose as well as ovarian cancer. Both tubes and ovaries were removed as she had already had a hysterectomy. She did not have chemotherapy for this. At her visit in August she had been lifting a heavy container cells. Following that she had pain in her left upper extremity. She has seen a physician and x-rays were done and she was told she did not have any fractured her arm was placed in a sling. The pain abated following this several weeks later she began having increasing pain began in the left axilla and upper outer quadrant of the left breast. At that time she underwent a core biopsy of this area which was consistent with findings highly suspicious for diffuse large B-cell lymphoma. The patient subsequently underwent an open biopsy for definitive diagnosis. Patient's last left breast mammogram was August 2018 this was felt to be benign with a repeat mammogram in 1 year recommended. Family history: 1. Patient: Ovarian, skin, and breast cancer 2. Mother: Stomach cancer 3. 3 sisters: Breast cancer, youngest in her 50s 4. Further: Lung cancer 5. Daughter: Colon cancer Hormonal history: Menarche: 10 Pregnancies: 55 children, press-fit: Yes, this point a 16 Menopause: Hysterectomy 43 secondary to trapped uterus and bleeding control pills 1 year Hormones: 4 years Past surgical history: 1. Appendectomy 2. Hysterectomy 3. Right mastectomy 4. Bilateral salpingo-oophorectomy 5. Facial surgery for cancer 6. Bilateral cataract surgery 7. Hiatal hernia 8. Colon resection diverticular disease 9. Bowel resection in 2013 10. axillary fullness, biopsy done Medical history: 1. B-cell lymphoma being treated 2. hypothyroid Social history: Smoke: Negative Alcohol: Negative Drugs: Negative Review of systems: Constitutional: Night sweats HEENT: Negative Breasts: Status post right mastectomy Heart: Irregular heartbeat Respiratory: Negative GI: Colon resection diverticular disease : History of ovarian cancer Musculoskeletal: Arthritis Integument: Skin cancer Neurologic: Weakness Psychiatric: Depression Endocrine: Fatigue ALLERGIES: Seasonal ALLERGIES Objective - Vital Signs Vital signs: Vital Signs Temp 97.9 F 01/14/19 12:01 Pulse 79 01/14/19 12:01 Resp 16 01/14/19 12:01 BP 123/72 01/14/19 12:01 Pulse Ox 99 01/14/19 12:01 Intake & Output 01/13/19 01/14/19 01/14/19 18:59 06:59 18:59 Weight 57.606 kg - Exam BMI 24.8 - Constitutional General appearance: Present: average body habitus - EENT Eyes: Present: EOMI ENT: Present: hard of hearing - Neck Details: well healed scar from prior surgery right side of neck, no adenopathy of concern - Respiratory Respiratory: bilateral: CTA - Cardiovascular Heart sounds: normal: S1, S2 - Gastrointestinal Gastrointestinal Comment(s): No guarding or rebound, no hepatomegaly or splenomegaly General gastrointestinal: Present: soft - Integumentary Integumentary: Present: normal turgor - Musculoskeletal Musculoskeletal: Present: gait normal - Additional findings Additional findings: Examination of the chest wall reveals well-healed scar from prior right mastectomy, no evidence of recurrent disease, no adenopathy in the right axilla concern Left breast: Multiple positional exam revealed scar from prior biopsy no dominant masses or nodules of concern, fibrocystic changes Left axilla: Shoddy adenopathy Assessment and Plan Assessment: Impression: 1. Patient is status post left axillary breast tail biopsy which was positive for a B-cell lymphoma, she is status post chemotherapy and doing well 2. Patient history of ovarian, skin, and breast cancer 3. Family history of breast cancer 4. Atrial fibrillation 5. Healing disorder 6. Hyperlipidemia 7. Thyroid disorder 8. Musculoskeletal disorder 9. COPD Plan: 1. left breast mammogram August 2019 with appointment at that time 2. Continue follow-up with Dr. Kennedy medical oncology 3. Medical management of medical conditions 4. No evidence of breast cancer at this time Cc: Dr. Rob Arias, Dr. Wilson Kennedy
== END | disposition home or self-care (01) ==
LOC: WWCWWP 12:01
PROVIDERS: ATTEND Surgery
DX: Z53.9 Procedure and treatment not carried out, unspecified reason (principal)

== ENCOUNTER → 2019-06-18 | Outpatient (CLI) | payer MEDICARE ==
--- NOTE | 2019-06-21 07:45 | PE ---
EXAMINATION TYPE: PET CT fusion skull to thigh DATE OF EXAM: 06/18/2019 COMPARISON: Prior PET/CT December 04, 2018 and older studies. HISTORY: Non-Hodgkin's lymphoma initially diagnosed left axilla in October 2018. Patient reports hist ory of right breast cancer 2003 and melanoma in the past. TECHNIQUE: Following the intravenous administration of 10.62 mCi of F-18 FDG, whole body images are performed from the skull base to the midthigh. Images are reviewed on the computer in the coronal, a xial, and sagittal planes. Reconstructed rotating images are created on independent workstation and reviewed on the computer. A noncontrast CT is performed in conjunction with the PET scan. SCAN: Subsequent Scan FINDINGS: MEAN SUV MEDIASTINUM: 1.15 MEAN SUV LIVER: 1.93 SKULL BASE AND NECK: No new areas of suspicious hypermetabolic uptake. No new hypermetabolic uptake or enlarging adenopathy left supraclavicular and axillary regions noted. CHEST, MEDIASTINUM, AND HILAR REGION: Fairly stable hypermetabolic posterior left upper lobe nodule w ith slightly spiculated margins measuring 2.0 x 1.5 cm axial image 77 with max SUV of 4.58 on current study. No recurrent enlarging or hypermetabolic adenopathy clearly identified. No new areas of abnormal hype rmetabolic uptake are seen. ABDOMEN AND PELVIS: No new areas of suspicious hypermetabolic uptake. OSSEOUS STRUCTURES: No new areas of suspicious hypermetabolic uptake. OTHER CT: There is stable left subclavian Mediport catheter terminating in SVC. Scleral calcification right globe is redemonstrated. Cardiomegaly with small to tiny pericardial effusion is slightly larg er versus prior. Coronary artery calcifications redemonstrated along with calcifications along the ao rtic and mitral valves. Cholecystectomy clips are redemonstrated. There is moderate calcified plaque of aorta extending into iliac branch vessels. There is low lying slightly prominent cecum into the right pelvis. Uterus is no сергей surgically absent. There is small fat- containing umbilical hernia redemonstrated. Slight thicken ing to both adrenal glands without hypermetabolic uptake is redemonstrated and stable. There is dextr oconvex scoliosis centered in the mid lumbar spine with multilevel spurring of the thoracolumbar spin e and with multilevel facet arthropathy in the mid to lower lumbar spine. IMPRESSION: Overall stable findings from most recent PET/CT. No recurrent hypermetabolic adenopathy a kayleen or below diaphragm. Stable posterior left upper lobe hypermetabolic spiculated nodule in which l juhi neoplasm cannot be excluded.
== END | disposition home or self-care (01) ==
LOC: RADPETMAIN 10:53
PROVIDERS: ATTEND Internal Medicine Hematology & Oncology
DX: C83.34 Diffuse large B-cell lymphoma, lymph nodes of axilla and upper limb (principal); R91.1 Solitary pulmonary nodule; Z92.21 Personal history of antineoplastic chemotherapy
CPT/HCPCS: 78815; A9552

== ENCOUNTER 2019-07-21 16:06 | Emergency (ER) | payer MEDICARE ==
[2019-07-21] MEDS ORDERED: SODIUM CHLORIDE 0.9% 500 ML 500 ML IV ONE (16:27)
--- NOTE | 2019-07-21 16:46 | ED ---
Female Urogenital HPI - General Chief complaint: Urogenital Stated complaint: Kidney issues Time Seen by Provider: 07/21/19 16:15 Source: patient Mode of arrival: ambulatory Limitations: no limitations - History of Present Illness Initial comments: 84-year-old female patient presents to the emergency department today for evaluation after being sent by her doctor for hematuria. Patient states she has been having some bilateral flank pain, worse on the right for the last couple of days. Patient states today she had a urinalysis performed at her doctor's office which showed presence of blood. She was sent over for further evaluation. Patient states she has had some nausea and has felt chilled and feverish. She denies any history of kidney stone. Denies dysuria or urinary frequency. Denies any constipation or diarrhea. She does have a history of A. fib and takes only a baby aspirin. Patient denies any recent rash, shortness breath, cough, chest pain, numbness, tingling, dizziness, weakness, headache, visual changes, or any other complaints. - Related Data Home Medications Medication Instructions Recorded Confirmed Levothyroxine Sodium [Synthroid] 88 mcg PO QAM 04/28/17 01/14/19 Acetaminophen [Tylenol Extra 500 mg PO TID PRN 09/26/18 01/14/19 Strength] Previous Rx's Medication Instructions Recorded Lidocaine-Prilocaine Cream [Emla 1 applic TOPICAL DIRECTED PRN 09/28/18 Cream 2.5%/2.5%] #30 gm Polyethylene Glycol 3350 [Miralax] 17 gm PO DAILY powd.pack 10/01/18 Nitrofurantoin Monohyd/M-Cryst 100 mg PO Q12HR #14 cap 07/21/19 [Macrobid] Allergies Allergy/AdvReac Type Severity Reaction Status Date / Time Iodinated Contrast Media Allergy Anaphylaxis Verified 07/21/19 16:13 [Iodinated Contrast Media - IV Dye] atorvastatin calcium AdvReac Nausea Verified 07/21/19 16:13 [From Lipitor] celecoxib [From Celebrex] AdvReac Nausea Verified 07/21/19 16:13 cephalexin [From Keflex] AdvReac Unknown Verified 07/21/19 16:13 influenza virus vaccine, AdvReac Nausea & Verified 07/21/19 16:13 specific Vomiting & [influenza virus Diarrhea,high vacc,specific] fever Review of Systems ROS Statement: Those systems with pertinent positive or pertinent negative responses have been documented in the HPI. ROS Other: All systems not noted in ROS Statement are negative. Past Medical History Past Medical History: Atrial Fibrillation, Cancer, COPD, GERD/Reflux, Hearing Disorder / Deafness, Hyperlipidemia, Musculoskeletal Disorder, Osteoarthritis (OA), Pneumonia, Thyroid Disorder Additional Past Medical History / Comment(s): Constipation, bowel adhesions. Hx bowel obstruction, right breast cancer-1997 no chemo or radiation, melanoma face 2014, osteoporosis, pneumonia Aug 2016, Lymphoma History of Any Multi-Drug Resistant Organisms: MRSA Date of last positivie culture/infection: 2010? MDRO Source:: post surgical wound from bowel resection Past Surgical History: Appendectomy, Bowel Resection, Breast Surgery, Cholecystectomy, Hysterectomy Additional Past Surgical History / Comment(s): Bilateral cataracts, right mastectomy. Past Anesthesia/Blood Transfusion Reactions: No Reported Reaction Additional Past Anesthesia/Blood Transfusion Reaction / Comment(s): no hx blood transfusion Past Psychological History: No Psychological Hx Reported Smoking Status: Former smoker Past Alcohol Use History: None Reported Past Drug Use History: None Reported - Past Family History Sister(s) Family Medical History: Cancer, CVA/TIA Additional Family Medical History / Comment(s): breast Cancer in 4 sisters Son(s) Family Medical History: Cancer, Thyroid Disorder Additional Family Medical History / Comment(s): LYMPHOMA, Congential heart problem. Daughter(s) Family Medical History: Cancer Additional Family Medical History / Comment(s): colon cancer Brother(s) Family Medical History: Cancer Additional Family Medical History / Comment(s): ONE BROTHER BLADDER CA, ONE WITH LUNG CA Mother Family Medical History: Cancer Additional Family Medical History / Comment(s): Stomach cancer Father Family Medical History: CVA/TIA General Exam Limitations: no limitations General appearance: alert, in no apparent distress, other (Physical well- developed, well-nourished elderly female patient in no acute distress. Vital signs upon presentation are temperature 98.1F, pulse 109, respirations 22, blood pressure 144/79, pulse ox 98% on room air.) Eye exam: Present: normal appearance, PERRL, EOMI. Absent: scleral icterus, conjunctival injection, periorbital swelling ENT exam: Present: normal exam, normal oropharynx, mucous membranes moist Respiratory exam: Present: normal lung sounds bilaterally. Absent: respiratory distress, wheezes, rales, rhonchi, stridor Cardiovascular Exam: Present: normal rhythm, tachycardia, normal heart sounds. Absent: systolic murmur, diastolic murmur, rubs, gallop, clicks GI/Abdominal exam: Present: soft, normal bowel sounds. Absent: distended, tenderness, guarding, rebound, rigid Back exam: Present: normal inspection, CVA tenderness (R), CVA tenderness (L) Neurological exam: Present: alert, oriented X3, CN II-XII intact Psychiatric exam: Present: normal affect, normal mood Skin exam: Present: warm, dry, intact, normal color. Absent: rash Course Vital Signs 07/21/19 07/21/19 07/21/19 16:11 17:41 18:16 Temperature 98.1 F 98.2 F 98 F Pulse Rate 109 H 69 64 Respiratory 22 18 18 Rate Blood Pressure 144/79 144/73 137/78 O2 Sat by Pulse 98 98 98 Oximetry Medical Decision Making - Medical Decision Making 84-year-old female patient presents to the emergency department today for eval uation of flank pain and hematuria. Physical examination reveals mild right CVA tenderness. Mild left CVA tenderness. Abdomen is soft and nontender. Labs reviewed and did reveal positive urinary tract infection. There is no red blood cells in the urine. I did discuss signs and results with the patient. We will treat for urinary tract infection with Macrobid. She is instructed increase fluids patient is instructed to follow-up with her primary care physician for recheck in 1-2 days. Return parameters discussed in detail. She verbalizes understanding and agrees with this plan. - Lab Data Result diagrams: 07/21/19 16:44 07/21/19 16:44 Lab Results 07/21/19 07/21/19 07/21/19 Range/Units 16:44 16:44 16:44 WBC 5.1 (3.8-10.6) k/uL RBC 4.83 (3.80-5.40) m/uL Hgb 14.9 (11.4-16.0) gm/dL Hct 44.7 (34.0-46.0) % MCV 92.5 (80.0-100.0) fL MCH 30.8 (25.0-35.0) pg MCHC 33.3 (31.0-37.0) g/dL RDW 12.2 (11.5-15.5) % Plt Count 166 (150-450) k/uL Neutrophils % 58 % Lymphocytes % 24 % Monocytes % 7 % Eosinophils % 5 % Basophils % 3 % Neutrophils # 3.0 (1.3-7.7) k/uL Lymphocytes # 1.2 (1.0-4.8) k/uL Monocytes # 0.3 (0-1.0) k/uL Eosinophils # 0.3 (0-0.7) k/uL Basophils # 0.1 (0-0.2) k/uL Sodium 137 (137-145) mmol/L Potassium 5.1 (3.5-5.1) mmol/L Chloride 103 (98-107) mmol/L Carbon Dioxide 26 (22-30) mmol/L Anion Gap 8 mmol/L BUN 18 H (7-17) mg/dL Creatinine 0.93 (0.52-1.04) mg/dL Est GFR (CKD-EPI)AfAm 66 (>60 ml/min/1.73 sqM) Est GFR (CKD-EPI)NonAf 57 (>60 ml/min/1.73 sqM) Glucose 89 (74-99) mg/dL Plasma Lactic Acid [place] 0.8 (0.7-2.0) mmol/L Calcium 9.8 (8.4-10.2) mg/dL Total Bilirubin 1.1 (0.2-1.3) mg/dL AST 43 H (14-36) U/L ALT 17 (4-34) U/L Alkaline Phosphatase 105 (38-126) U/L Total Protein 7.8 (6.3-8.2) g/dL Albumin 4.7 (3.5-5.0) g/dL Urine Color Urine Appearance (Clear) Urine pH (5.0-8.0) Ur Specific [place] (1.001-1.035) Urine Protein (Negative) Urine Glucose (UA) (Negative) Urine Ketones (Negative) Urine Blood (Negative) Urine Nitrite (Negative) Urine Bilirubin (Negative) Urine Urobilinogen (<2.0) mg/dL Ur Leukocyte Esterase (Negative) Urine RBC (0-5) /hpf Urine WBC (0-5) /hpf Ur Squamous Epith Cells (0-4) /hpf Urine Bacteria (None) /hpf 07/21/19 Range/Units 16:44 WBC (3.8-10.6) k/uL RBC (3.80-5.40) m/uL Hgb (11.4-16.0) gm/dL Hct (34.0-46.0) % MCV (80.0-100.0) fL MCH (25.0-35.0) pg MCHC (31.0-37.0) g/dL RDW (11.5-15.5) % Plt Count (150-450) k/uL Neutrophils % % Lymphocytes % % Monocytes % % Eosinophils % % Basophils % % Neutrophils # (1.3-7.7) k/uL Lymphocytes # (1.0-4.8) k/uL Monocytes # (0-1.0) k/uL Eosinophils # (0-0.7) k/uL Basophils # (0-0.2) k/uL Sodium (137-145) mmol/L Potassium (3.5-5.1) mmol/L Chloride (98-107) mmol/L Carbon Dioxide (22-30) mmol/L Anion Gap mmol/L BUN (7-17) mg/dL Creatinine (0.52-1.04) mg/dL Est GFR (CKD-EPI)AfAm (>60 ml/min/1.73 sqM) Est GFR (CKD-EPI)NonAf (>60 ml/min/1.73 sqM) Glucose (74-99) mg/dL Plasma Lactic Acid [place] (0.7-2.0) mmol/L Calcium (8.4-10.2) mg/dL Total Bilirubin (0.2-1.3) mg/dL AST (14-36) U/L ALT (4-34) U/L Alkaline Phosphatase (38-126) U/L Total Protein (6.3-8.2) g/dL Albumin (3.5-5.0) g/dL Urine Color Yellow Urine Appearance Clear (Clear) Urine pH 6.0 (5.0-8.0) Ur Specific [place] 1.007 (1.001-1.035) Urine Protein Negative (Negative) Urine Glucose (UA) Negative (Negative) Urine Ketones Negative (Negative) Urine Blood Negative (Negative) Urine Nitrite Negative (Negative) Urine Bilirubin Negative (Negative) Urine Urobilinogen <2.0 (<2.0) mg/dL Ur Leukocyte Esterase Large H (Negative) Urine RBC 1 (0-5) /hpf Urine WBC 41 H (0-5) /hpf Ur Squamous Epith Cells <1 (0-4) /hpf Urine Bacteria Rare H (None) /hpf Disposition Clinical Impression: Urinary tract infection Disposition: HOME SELF-CARE Condition: Good Instructions (If sedation given, give patient instructions): Urinary Tract Infection in Women (ED) Additional Instructions: Increase fluids. Complete antibiotic prescription in full. Follow up with your primary care physician for recheck in 1-2 days. Return to the emergency department for any new, worsening, or concerning symptoms. Prescriptions: Nitrofurantoin Monohyd/M-Cryst [Macrobid] 100 mg PO Q12HR #14 cap Is patient prescribed a controlled substance at d/c from ED?: No Referrals: Rob Arias MD [Primary Care Provider] - 1-2 days Time of Disposition: 17:59
[2019-07-21 16:58] LABS: Basophils # (A) 0.1 k/uL (0-0.2); Basophils % (A) 3 %; Eosinophils # (A) 0.3 k/uL (0-0.7); Eosinophils % (A) 5 %; HCT 44.7 % (34.0-46.0); HGB 14.9 gm/dL (11.4-16.0); Lymphocytes # (A) 1.2 k/uL (1.0-4.8); Lymphocytes % (A) 24 %; MCH 30.8 pg (25.0-35.0); MCHC 33.3 g/dL (31.0-37.0); MCV 92.5 fL (80.0-100.0); Mean Platelet Volume 7.4; Monocytes # (A) 0.3 k/uL (0-1.0); Monocytes % (A) 7 %; Neutrophils % (A) 58 %; Platelet Count 166 k/uL (150-450); RBC 4.83 m/uL (3.80-5.40); RDW 12.2 % (11.5-15.5); WBC 5.1 k/uL (3.8-10.6)
[2019-07-21 17:06] LABS: Albumin 4.7 g/dL (3.5-5.0); Calcium 9.8 mg/dL (8.4-10.2); Total Bilirubin 1.1 mg/dL (0.2-1.3); Total Protein 7.8 g/dL (6.3-8.2)
[2019-07-21 17:11] LABS: Potassium 5.1 mmol/L (3.5-5.1)
[2019-07-21 17:19] LABS: Appearance,Urine Clear (Clear); Bacteria,Urine Rare /hpf; Bilirubin,Urine Negative (Negative); Blood,Urine Negative (Negative); Color,Urine Yellow; Glucose,Urine (UA) Negative (Negative); Ketones,Urine Negative (Negative); Leukocyte Esterase,Urine Large (Negative); Nitrite,Urine Negative (Negative); Protein,Urine Negative (Negative); RBC,Urine 1 /hpf (0-5); Specific Gravity,Urine 1.007 (1.001-1.035); Squamous Epithelial Cell,Urine <1 /hpf (0-4); Urobilinogen,Urine <2.0 mg/dL (<2.0); WBC,Urine 41 /hpf (0-5)
[2019-07-21 17:42] VITALS: RESP 18
[2019-07-21] MEDS ORDERED: NITROFURANTOIN MONOHYD/M-CRYST 100 MG CAP PO STA (17:44)
[2019-07-21 18:20] VITALS: BP 137/78; PULSE 64; TEMP 98
== END 2019-07-21 18:16 | disposition home or self-care (01) ==
LOC: EC 16:06
DX: N39.0 Urinary tract infection, site not specified (principal); R00.0 Tachycardia, unspecified; R11.0 Nausea; I48.91 Unspecified atrial fibrillation; E07.9 Disorder of thyroid, unspecified; Z87.891 Personal history of nicotine dependence; Z88.1 Allergy status to other antibiotic agents; Z88.7 Allergy status to serum and vaccine; Z88.6 Allergy status to analgesic agent; Z88.8 Allergy status to other drugs, medicaments and biological substances; Z91.041 Radiographic dye allergy status; Z79.82 Long term (current) use of aspirin; Z79.890 Hormone replacement therapy; Z86.14 Personal history of Methicillin resistant Staphylococcus aureus infection; Z85.3 Personal history of malignant neoplasm of breast; Z90.11 Acquired absence of right breast and nipple; Z85.820 Personal history of malignant melanoma of skin; Z85.72 Personal history of non-Hodgkin lymphomas; Z90.49 Acquired absence of other specified parts of digestive tract; Z80.0 Family history of malignant neoplasm of digestive organs
CPT/HCPCS: 36415; 80053; 81001; 83605; 85025; 87040; 99284

== ENCOUNTER 2019-08-04 06:42 | Day surgery (SDC) | payer MEDICARE ==
[2019-08-02 14:25] VITALS: BMI 21.6
[2019-08-04] MEDS ORDERED: LACTATED RINGERS 1,000 ML IV ONE (07:07)
[2019-08-04 07:23] VITALS: TEMP 98.6
[2019-08-04] MEDS ORDERED: LIDOCAINE 1% INJ 10MG/ML (20 ML MDV) ONE (07:40)
[2019-08-04] MEDS ORDERED: PROPOFOL 10 MG/ML 20 ML VIAL IV ONE (07:40)
--- NOTE | 2019-08-04 07:43 | P.GSHP ---
History of Present Illness H&P Date: 08/04/19 CHIEF COMPLAINT: Colon screen HISTORY OF PRESENT ILLNESS: The patient is a 84-year-old female who presents for colon screen. Lower endoscopy was offered for further evaluation and management. PAST MEDICAL HISTORY: Please see list. PAST SURGICAL HISTORY: Please see list. MEDICATIONS: Please see list. ALLERGIES: Please see list. SOCIAL HISTORY: No illicit drug use FAMILY HISTORY: No reports of Crohn disease or ulcerative colitis. REVIEW OF ORGAN SYSTEMS: CONSTITUTIONAL: No reports of fevers or chills. PHYSICAL EXAM: VITAL SIGNS: Stable GENERAL: Well-developed pleasant in no acute distress. HEENT: No scleral icterus. Extraocular movements grossly intact. Moist buccal mucosa. NECK: Supple without lymphadenopathy. CHEST: Unlabored respirations. Equal bilateral excursions. CARDIOVASCULAR: Regular rate and rhythm. Distal 2+ pulses. ABDOMEN: Soft, nontender, nondistended. MUSCULOSKELETAL: No clubbing, cyanosis, or edema. ASSESSMENT: 1. Colon screen. PLAN: 1. Recommend proceeding with a lower endoscopy Past Medical History Past Medical History: Atrial Fibrillation, Cancer, COPD, Hearing Disorder / Deafness, Hyperlipidemia, Osteoarthritis (OA), Pneumonia, Thyroid Disorder Additional Past Medical History / Comment(s): Constipation, bowel adhesions. Hx bowel obstruction, right breast cancer-1997 no chemo or radiation, melanoma face, osteoporosis, non hodgkens Lymphoma, recent UTI, ovarian cancer, hx diverticulitis History of Any Multi-Drug Resistant Organisms: MRSA Date of last positivie culture/infection: 2010? MDRO Source:: post surgical wound from bowel resection Past Surgical History: Appendectomy, Bowel Resection, Breast Surgery, Cholecystectomy, Hysterectomy Additional Past Surgical History / Comment(s): Bilateral cataracts, right mastectomy. surgery to repair hiatal hernia, jevon oophorectomy, port placement Past Anesthesia/Blood Transfusion Reactions: No Reported Reaction Additional Past Anesthesia/Blood Transfusion Reaction / Comment(s): no hx blood transfusion Smoking Status: Former smoker - Past Family History Sister(s) Family Medical History: Cancer Additional Family Medical History / Comment(s): breast Cancer in 4 sisters Son(s) Family Medical History: Cancer Additional Family Medical History / Comment(s): LYMPHOMA, Congential heart problem. Daughter(s) Family Medical History: Cancer Additional Family Medical History / Comment(s): colon cancer Brother(s) Family Medical History: Cancer Additional Family Medical History / Comment(s): ONE BROTHER BLADDER CA, ONE WITH LUNG CA Mother Family Medical History: Cancer Additional Family Medical History / Comment(s): Stomach cancer Father Family Medical History: CVA/TIA Medications and Allergies Home Medications Medication Instructions Recorded Confirmed Type Acetaminophen [Tylenol Extra 500 mg PO TID PRN 09/26/18 08/04/19 History Strength] Polyethylene Glycol 3350 [Miralax] 17 gm PO DAILY powd.pack 10/01/18 08/04/19 Rx Aspirin [Adult Low Dose Aspirin EC] 81 mg PO DAILY 08/02/19 08/02/19 History Docusate [Colace] 100 mg PO BID 08/02/19 08/04/19 History Fluticasone Nasal Jeannette [Flonase 1 spray EA NOSTRIL DAILY PRN 08/02/19 08/04/19 History Nasal Jeannette] Immunotherapy 1 applicate IV Q60D 08/02/19 08/04/19 History Levothyroxine Sodium [Synthroid] 100 mcg PO DAILY 08/02/19 08/04/19 History Allergies Allergy/AdvReac Type Severity Reaction Status Date / Time Iodinated Contrast Media Allergy Severe Anaphylaxis Verified 08/04/19 07:17 [Iodinated Contrast Media - IV Dye] atorvastatin calcium AdvReac Nausea Verified 08/04/19 07:17 [From Lipitor] celecoxib [From Celebrex] AdvReac Nausea Verified 08/04/19 07:17 cephalexin [From Keflex] AdvReac thrush Verified 08/04/19 07:17 influenza virus vaccine, AdvReac Nausea & Verified 08/04/19 07:17 specific Vomiting & [influenza virus Diarrhea,high vacc,specific] fever Surgical - Exam Vital Signs Temp Pulse Resp BP Pulse Ox 98.6 F 117 H 14 152/81 98 08/04/19 07:21 08/04/19 07:21 08/04/19 07:21 08/04/19 07:21 08/04/19 07:21
[2019-08-04 08:21] VITALS: RESP 16
--- NOTE | 2019-08-04 08:38 | P.PCN ---
Date of Procedure: 08/04/19 Description of Procedure: PREOPERATIVE DIAGNOSIS: History of diverticulitis Change in bowel habits History of partial colectomy Personal history of high-risk colon polyps POSTOPERATIVE DIAGNOSIS: History of diverticulitis Change in bowel habits History of partial colectomy Personal history of high-risk colon polyps Diverticulosis, scattered OPERATION: Colonoscopy to the ascending colon SURGEON: Kailyn Pineda MD. ANESTHESIA: MAC. INDICATIONS: The patient is a 83-year-old female who presents for colonoscopy. She has history of high-risk polyps including change in bowel habits and diverticulosis with diverticulitis. Her last colonoscopy was less than 5 years ago. Benefits and risks were described and informed consent was obtained. DESCRIPTION OF PROCEDURE: The patient had undergone Suprep. She had been brought into the operating room and laid in the left lateral decubitus position. After adequate intravenous sedation, the rectum was examined with 2% lidocaine jelly. No external hemorrhoids were encountered. The rectal tone was within normal limits. No lesions were palpated in the rectal vault. An Olympus colonoscope was advanced until the ileocecal valve were clearly viewed. The prep was excellent with clear visualization of the mucosal folds. Her colon was extremely tortuous. Abdominal pressure was used to advance the scope. No additional large adenomatous polyps were found. The scope was removed with visualization of each mucosal fold. Scattered diverticulosis was encountered. No evidence of focal colitis was found. Retroflexion of the scope demonstrated grade 1 internal hemorrhoids without active bleeding or inflammation. The colon was desufflated. The patient had tolerated the procedure well. Withdrawal time was over 6 minutes. FINDINGS: Aronchick preparation quality scale 1 (1-5) Internal hemorrhoids, grade 1 No external prolapsed hemorrhoids. No arteriovenous malformations. No new tubular adenomas No focal colitis Sigmoid diverticulosis RECOMMENDATIONS: 1. Will need continued colonic surveillance with history of colon cancer Plan - Discharge Summary New Discharge Prescriptions: No Action Acetaminophen [Tylenol Extra Strength] 500 mg PO TID PRN PRN Reason: Pain Polyethylene Glycol 3350 [Miralax] 17 gm PO DAILY powd.pack Levothyroxine Sodium [Synthroid] 100 mcg PO DAILY Fluticasone Nasal [place] [Flonase Nasal [place]] 1 spray EA NOSTRIL DAILY PRN PRN Reason: Runny Nose Aspirin [Adult Low Dose Aspirin EC] 81 mg PO DAILY Docusate [Colace] 100 mg PO BID Immunotherapy 1 applicate IV Q60D Discharge Medication List Acetaminophen [Tylenol Extra Strength] 500 mg PO TID PRN 09/26/18 [History] Polyethylene Glycol 3350 [Miralax] 17 gm PO DAILY powd.pack 10/01/18 [Rx] Aspirin [Adult Low Dose Aspirin EC] 81 mg PO DAILY 08/02/19 [History] Docusate [Colace] 100 mg PO BID 08/02/19 [History] Fluticasone Nasal [place] [Flonase Nasal [place]] 1 spray EA NOSTRIL DAILY PRN 08/02/19 [History] Immunotherapy 1 applicate IV Q60D 08/02/19 [History] Levothyroxine Sodium [Synthroid] 100 mcg PO DAILY 08/02/19 [History] Follow up Appointment(s)/Referral(s): Kailyn Pineda MD [STAFF PHYSICIAN] - 08/16/19 Patient Instructions/Handouts: *[facility] - (Anesthesia) Endoscopy Discharge Instructions, *Sur[facility] - (Anesthesia) Discharge Instructions Outpatient Surgery, Diverticulosis (DC), Diverticulosis Diet (GEN) Discharge Disposition: HOME SELF-CARE
[2019-08-04 09:15] VITALS: BP 147/74; PULSE 74
== END 2019-08-04 09:15 | disposition home or self-care (01) ==
LOC: ORWHC2ENDO 06:42
PROVIDERS: ATTEND Surgery Plastic and Reconstructive Surgery
DX: K57.30 Diverticulosis of large intestine without perforation or abscess without bleeding (principal); Q43.8 Other specified congenital malformations of intestine; K64.0 First degree hemorrhoids; Z85.038 Personal history of other malignant neoplasm of large intestine; Z86.010 Personal history of colon polyps; I48.91 Unspecified atrial fibrillation; J44.9 Chronic obstructive pulmonary disease, unspecified; H91.90 Unspecified hearing loss, unspecified ear; E78.5 Hyperlipidemia, unspecified; M19.90 Unspecified osteoarthritis, unspecified site; K59.00 Constipation, unspecified; E07.9 Disorder of thyroid, unspecified; K08.89 Other specified disorders of teeth and supporting structures; Z88.1 Allergy status to other antibiotic agents; Z88.6 Allergy status to analgesic agent; Z91.041 Radiographic dye allergy status; Z85.3 Personal history of malignant neoplasm of breast; Z85.820 Personal history of malignant melanoma of skin; Z87.01 Personal history of pneumonia (recurrent); Z87.19 Personal history of other diseases of the digestive system; Z87.39 Personal history of other diseases of the musculoskeletal system and connective tissue; Z85.71 Personal history of Hodgkin lymphoma; Z87.440 Personal history of urinary (tract) infections; Z85.43 Personal history of malignant neoplasm of ovary; Z86.14 Personal history of Methicillin resistant Staphylococcus aureus infection; Z90.49 Acquired absence of other specified parts of digestive tract; Z98.890 Other specified postprocedural states; Z90.710 Acquired absence of both cervix and uterus; Z98.42 Cataract extraction status, left eye; Z98.41 Cataract extraction status, right eye; Z90.11 Acquired absence of right breast and nipple; Z90.722 Acquired absence of ovaries, bilateral; Z87.891 Personal history of nicotine dependence; Z79.899 Other long term (current) drug therapy; Z79.82 Long term (current) use of aspirin; Z79.890 Hormone replacement therapy; Z88.8 Allergy status to other drugs, medicaments and biological substances; Z88.7 Allergy status to serum and vaccine; Z97.2 Presence of dental prosthetic device (complete) (partial); Z80.3 Family history of malignant neoplasm of breast; Z80.7 Family history of other malignant neoplasms of lymphoid, hematopoietic and related tissues; Z82.79 Family history of other congenital malformations, deformations and chromosomal abnormalities; Z80.0 Family history of malignant neoplasm of digestive organs; Z80.52 Family history of malignant neoplasm of bladder; Z80.1 Family history of malignant neoplasm of trachea, bronchus and lung; Z82.3 Family history of stroke
CPT/HCPCS: 45378; J2001; J1642; J2704

== ENCOUNTER → 2019-08-15 | Outpatient (CLI) | payer MEDICARE ==
--- NOTE | 2019-08-16 09:10 | MM ---
Reason for exam: additional evaluation requested from prior study. Last mammogram was performed 1 year ago. History: Patient is postmenopausal, has history of other cancer at age 83, has history of ovarian cancer at age 73, and has history of breast cancer at age 65. Family history of breast cancer in sister at age 50 and breast cancer in sister at age 60. Mastectomy of the right breast, 1999. 2 excisional biopsies of the left breast. Took hormonal contraceptives for 2 months. Physical Findings: Nurse did not find any significant physical abnormalities on exam. MG Diagnostic Mammo LT w CAD CC and MLO view(s) were taken of the left breast. Prior study comparison: August 12, 2018, left breast MG 3d diag mammo w/cad LT. March 04, 2016, left breast MG diagnostic mammo LT w CAD. The breast tissue is heterogeneously dense. This may lower the sensitivity of mammography. Finding: There is equal indistinct architectural distortion located 11 cm from the nipple in the upper outer quadrant, axillary tail position of the left breast. Focal asymmetry on the left breast. New finding since August 12, 2018 and March 04, 2016. These results were verbally communicated with the patient and result sheet given to the patient on 08/15/19. ASSESSMENT: Incomplete: need additional imaging evaluation, BI-RAD 0 RECOMMENDATION: Ultrasound of the left breast.
--- NOTE | 2019-08-16 09:12 | USB ---
Reason for exam: additional evaluation requested from abnormal screening. History: Patient is postmenopausal, has history of other cancer at age 83, has history of ovarian cancer at age 73, and has history of breast cancer at age 65. Family history of breast cancer in sister at age 50 and breast cancer in sister at age 60. Mastectomy of the right breast, 1999. 2 excisional biopsies of the left breast. Took hormonal contraceptives for 2 months. US Breast Limited LT Left limited breast ultrasound including focal area of concern, retroareolar and axilla demonstrates a 0.5 x 0.4 x 0.3cm oval, irregular, hypoechoic lesion at 2 o'clock, suspicious, ultrasound core biopsy, then correlate with mammogram and a 0.5 x 0.5 x 0.4cm oval node at the axilla tail. These results were verbally communicated with the patient and result sheet given to the patient on 08/15/19. ASSESSMENT: Suspicious, BI-RAD 4 RECOMMENDATION: Ultrasound core biopsy of the left breast. Called office with mammographic findings and has scheduled an appointment for the patient for 08/18/19 at 3:[address] Deras. PRELIMINARY REPORT CALLED AND FAXED TO DR. DERAS ON 08/16/19.
== END | disposition home or self-care (01) ==
LOC: RADMAMWWP 15:47
PROVIDERS: ATTEND Surgery
DX: R92.8 Other abnormal and inconclusive findings on diagnostic imaging of breast (principal)
CPT/HCPCS: 77065

== ENCOUNTER → 2019-09-12 | Day surgery (SDC) | payer MEDICARE ==
[2019-09-12 13:54] VITALS: RESP 16; TEMP 97.9
[2019-09-12 15:01] VITALS: BP 141/76; PULSE 69
--- NOTE | 2019-09-12 15:39 | USB ---
EXAMINATION TYPE: US biopsy breast VAD LT, MG diagnostic mammo LT wo CAD DATE OF EXAM: 09/12/2019 CLINICAL HISTORY: R92.8, Abnormal mammogram. TECHNIQUE: Ultrasound guided core biopsy of left breast. COMPARISON: Left breast ultrasound dated 08/15/2019 FINDINGS: The procedure of ultrasound guided core biopsy was explained to the patient. Benefits, alternatives, and risks were discussed. An informed consent was then obtained. Preprocedural timeout was performed. The patient was placed in supine positioning for imaging and for the procedure. The overlying skin was prepped and draped in usual sterile fashion. Lidocaine buffered with bicarbonate was used as anesthetic into the skin and subcutaneous tissue up to a 0.5 cm mass at the 2:00 position in the left. Under ultrasound guidance, a 12-gauge vacuum assisted biopsy gun device was used to obtain 3 core samples. Following this, a coil-shaped biopsy marker was left at the site of biopsy. The patient tolerated the procedure well without any immediate complication. The patient was kept in the radiology department for short stay after the procedure and then discharged home in stable condition. Postprocedure mammogram demonstrates appropriate biopsy marker placement. IMPRESSION: Successful, uncomplicated ultrasound guided core biopsy of a 5 mm mass at the 2:00 position in the left breast, full pathology results to follow. Pathology Results: Benign LEFT BREAST LESION AT 2:00 POSITION, NEEDLE CORE BIOPSIES: Predominantly fibrous breast parenchyma with fibrocystic spectrum disease changes, microscopic calcifications and metaplastic changes. Recommendation Follow up mammogram of the left breast in 6 months. ALEXD
== END ==
LOC: RADUSWWP 13:31
PROVIDERS: ATTEND Surgery
DX: N60.12 Diffuse cystic mastopathy of left breast (principal); N60.82 Other benign mammary dysplasias of left breast
CPT/HCPCS: 88305; 77065; 19083; A4648; J2001

== ENCOUNTER → 2019-11-03 | Outpatient (CLI) | payer MEDICARE ==
--- NOTE | 2019-11-03 15:24 | CT ---
EXAMINATION TYPE: CT brain wo con DATE OF EXAM: 11/03/2019 HISTORY: Headache and vision loss. History of non-Hodgkin lymphoma CT DLP: 1012.7 mGycm. Automated Exposure Control for Dose Reduction was Utilized. TECHNIQUE: CT scan of the head is performed without contrast. COMPARISON: None. FINDINGS: There is no acute intracranial hemorrhage or midline shift identified. There is diffuse v entricular and sulcal prominence consistent with diffuse age-related cerebral atrophy. There is low- attenuation in the periventricular white matter consistent with chronic small vessel ischemic change. Scleral calcification right globe. Visualized sinuses are clear. Some hyperostosis frontalis redemon strated. IMPRESSION: No acute intracranial hemorrhage or midline shift. There is mild diffuse cerebral atrop hy and mild to moderate nonspecific white matter changes presumed on the basis of product of chronic small vessel ischemic change in patient of this age. Both findings new or more prominent from 2012 CT .
== END | disposition home or self-care (01) ==
LOC: RADCTMAIN 14:53
PROVIDERS: ATTEND Family Medicine
DX: G31.9 Degenerative disease of nervous system, unspecified (principal); R90.82 White matter disease, unspecified
CPT/HCPCS: 70450

== ENCOUNTER 2019-12-29 10:28 | Day surgery (SDC) | payer MEDICARE, OTHER ==
[2019-12-27 14:59] VITALS: BMI 23.5
[2019-12-29 11:07] VITALS: RESP 16; TEMP 98.3
[2019-12-29 12:25] VITALS: BP 142/71
--- NOTE | 2020-01-26 08:34 | IR ---
Fluoroscopic portogram([facility]). HISTORY: Device malfunction. The patient presented to the CVL with a Zeng needle within the port. Preliminary fluoroscopy demonst rated the catheter to be intact. There is a small amount of contrast along the tip of the catheter . Could represent a tiny fibrin sheath. 0.5 minutes of fluoroscopy utilized and 140 images submitted. IMPRESSION: 1. No obstruction or extravasation. See above.
== END 2019-12-29 12:30 | disposition home or self-care (01) ==
LOC: CATHCVL 10:28
PROVIDERS: ATTEND Radiology Diagnostic Radiology
DX: T85.618A Breakdown (mechanical) of other specified internal prosthetic devices, implants and grafts, initial encounter (principal); C83.30 Diffuse large B-cell lymphoma, unspecified site; C82.09 Follicular lymphoma grade I, extranodal and solid organ sites; G89.3 Neoplasm related pain (acute) (chronic); D70.2 Other drug-induced agranulocytosis; J96.21 Acute and chronic respiratory failure with hypoxia; Z99.81 Dependence on supplemental oxygen; G72.9 Myopathy, unspecified; G47.00 Insomnia, unspecified; F41.1 Generalized anxiety disorder; M79.7 Fibromyalgia; M19.90 Unspecified osteoarthritis, unspecified site; E03.9 Hypothyroidism, unspecified; E78.00 Pure hypercholesterolemia, unspecified; Z85.3 Personal history of malignant neoplasm of breast; Z90.49 Acquired absence of other specified parts of digestive tract; Z90.710 Acquired absence of both cervix and uterus; Z90.11 Acquired absence of right breast and nipple; Z98.890 Other specified postprocedural states; Z80.0 Family history of malignant neoplasm of digestive organs; Z80.1 Family history of malignant neoplasm of trachea, bronchus and lung; Z80.3 Family history of malignant neoplasm of breast; Z86.19 Personal history of other infectious and parasitic diseases; Z79.890 Hormone replacement therapy; Z88.8 Allergy status to other drugs, medicaments and biological substances; Z91.041 Radiographic dye allergy status
CPT/HCPCS: 36598

== ENCOUNTER → 2020-01-18 | Outpatient (CLI) | payer MEDICARE, OTHER ==
--- NOTE | 2020-01-18 16:32 | CT ---
EXAMINATION TYPE: CT ChestAbdPelvis w con DATE OF EXAM: 01/18/2020 COMPARISON: Prior nuclear medicine PET/CT 06/18/2019 HISTORY: Pulmonary, breast cancer CT DLP: 1052 mGycm Automated exposure control for dose reduction was used. CONTRAST: CT scan of the chest, abdomen and pelvis is performed with Oral Contrast and with IV Contrast, patien t injected with 100 mL of Isovue 300. FINDINGS: There is a small hiatal hernia present. Small umbilical hernia contains fat. LUNGS: The lungs are remarkable for a stable spiculated left upper lobe lung mass. In the left lower lobe on axial image #40 minimal pleural thickening is noted posteriorly questionable clinical signifi cance. There is no pleural effusion or pneumothorax seen. The tracheobronchial tree is patent. MEDIASTINUM: There are no greater than 1 cm hilar or mediastinal lymph nodes. No pericardial effusi on is seen. Air coronary artery calcifications present. AORTA: No significant abnormality is seen. OTHER: No additional significant abnormality is seen. LIVER/GB: Liver shows no mass, calcification peripherally in the right lobe at the level of the diaph ragm is stable, patient is post cholecystectomy, dilated common bile duct likely due to postcholecyst ectomy change. PANCREAS: No significant abnormality is seen. SPLEEN: No significant abnormality is seen. ADRENALS: No significant abnormality is seen. KIDNEYS: No significant abnormality is seen. REPRODUCTIVE ORGANS: Not seen. BOWEL: No significant abnormality is seen. FREE AIR: No Free Air visible. ASCITES: None seen. RETROPERITONEAL ADENOPATHY: No retroperitoneal adenopathy is seen. LYMPH NODES: No greater than 1 cm abdominal or pelvic lymph nodes are appreciated. URINARY BLADDER: No significant abnormality is seen. PELVIC ADENOPATHY: None visualized. OSSEOUS STRUCTURES: No significant abnormality is seen. IMPRESSION: No acute osseous fracture, abnormal fluid collection, or evidence of solid organ injury i n the thorax, abdomen, or pelvis.
== END | disposition home or self-care (01) ==
LOC: RADCTMAIN 13:17
PROVIDERS: ATTEND Internal Medicine Hematology & Oncology
DX: C50.919 Malignant neoplasm of unspecified site of unspecified female breast (principal); C82.09 Follicular lymphoma grade I, extranodal and solid organ sites; Z88.8 Allergy status to other drugs, medicaments and biological substances; Z91.041 Radiographic dye allergy status
CPT/HCPCS: 82565; 84520; 71260; 74177; 36415; Q9967

== ENCOUNTER → 2020-02-23 | Outpatient (CLI) | payer MEDICARE ==
--- NOTE | 2020-02-24 18:00 | ECHOF ---
Referral Reason:R03.0 elevated blood pressure reading, w/o dx hype MEASUREMENTS -------- HEIGHT: 152.4 cm WEIGHT: 63.5 kg BP: 157/70 RVIDd: 3.1 cm (< 3.3) IVSd: 1.1 cm (0.6 - 1.1) LVIDd: 4.7 cm (3.9 - 5.3) LVPWd: 1.1 cm (0.6 - 1.1) EDV(Teich): 101 ml IVSs: 1.5 cm LVIDs: 3.0 cm LVPWs: 1.6 cm %IVS Thck: 43 % ESV(Teich): 36 ml EF(Teich): 64 % %FS: 35 % SV(Teich): 65 ml LA Diam: 2.9 cm (2.7 - 3.8) LALs A4C: 4.3 cm LAAs A4C: 14.8 cm LAESV A-L A4C: 44 ml LAESV MOD A4C: 43 ml LALs A2C: 5.7 cm LAAs A2C: 15.4 cm LAESV A-L A2C: 35 ml LAESV MOD A2C: 33 ml LAESV(A-L): 45 ml LAESV Index (A-L): 28.11 ml/m Ao Diam: 3.2 cm (2.0 - 3.7) AV Cusp: 2.0 cm (1.5 - 2.6) MV EXCURSION: 9.111 mm (> 18.000) MV EF SLOPE: 15 mm/s (70 - 150) EPSS: 0.7 cm MV E Elias: 0.90 m/s MV DecT: 372 ms MV Dec Adams: 2.4 m/s MV A Elias: 1.33 m/s MV E/A Ratio: 0.68 MV PHT: 108 ms MV Vmax: 1.71 m/s MV Vmean: 0.87 m/s MV maxP.73 mmHg MV meanP.65 mmHg MV VTI: 46.6 cm LVOT Vmax: 1.13 m/s LVOT maxP.09 mmHg AV Vmax: 1.64 m/s AV maxP.86 mmHg AV Vmax: 1.31 m/s AV Vmean: 0.79 m/s AV maxP.63 mmHg AV meanP.82 mmHg AV Env.Ti: 259 ms AV VTI: 23.4 cm AR Vmax: 3.25 m/s AR maxP.22 mmHg AR PHT: 733 ms AR Dec Time: 2527 ms AR Dec Adams: 1.3 m/s TR Vmax: 2.67 m/s TR maxP.54 mmHg RAP: 5.00 mmHg RVSP: 33.54 mmHg FINDINGS -------- Sinus rhythm. This was a technically good study. The left ventricular size is normal. There is borderline concentric left ventricular hypertrophy. Overall left ventricular systolic function is normal with, an EF between 55 - 60 %. The right ventricle is normal in size. Normal LA size by volume 22+/-6 ml/m2. The right atrium is normal in size. Interatrial and interventricular septum intact. There is mild aortic valve sclerosis. There is moderate aortic regurgitation. The mitral valve leaflets are mildly thickened. Moderate mitral annular calcification present. Mo derate mitral regurgitation is present. The peak and mean MV gradients are 11.73mmHg 3.65mmHg as m easured by doppler. Mild mitral stenosis. Moderate tricuspid regurgitation present. There is borderline pulmonary artery hypertension. The right ventricular systolic pressure, as measured by Doppler, is 33.54mmHg. Trace/mild (physiologic) pulmonic regurgitation. The aortic root size is normal. Normal inferior vena cava with normal inspiratory collapse consistent with estimated right atrial pre ssure of 5 mmHg. There is no pericardial effusion. CONCLUSIONS -------- 1. The left ventricular size is normal. 2. There is borderline concentric left ventricular hypertrophy. 3. Overall left ventricular systolic function is normal with, an EF between 55 - 60 %. 4. There is mild aortic valve sclerosis. 5. There is moderate aortic regurgitation. 6. The mitral valve leaflets are mildly thickened. 7. Moderate mitral annular calcification present. 8. Moderate mitral regurgitation is present. 9. The peak and mean MV gradients are 11.73mmHg 3.65mmHg as measured by doppler. 10. Mild mitral stenosis. 11. Moderate tricuspid regurgitation present. 12. There is borderline pulmonary artery hypertension. 13. The right ventricular systolic pressure, as measured by Doppler, is 33.54mmHg. 14. Trace/mild (physiologic) pulmonic regurgitation. 15. There is no pericardial effusion. INTEGRITY MANAGER: Chasity Ray RDCS
== END | disposition home or self-care (01) ==
LOC: RADECHMAIN 14:55
PROVIDERS: ATTEND Family Medicine
DX: I08.3 Combined rheumatic disorders of mitral, aortic and tricuspid valves (principal)
CPT/HCPCS: 93306

== ENCOUNTER → 2020-03-16 | Outpatient (CLI) | payer MEDICARE, OTHER ==
--- NOTE | 2020-03-19 08:12 | MM ---
Reason for exam: follow-up at short interval from prior study. Last mammogram was performed 6 months ago. History: Patient is postmenopausal, has history of other cancer at age 83, has history of ovarian cancer at age 73, and has history of breast cancer at age 65. Family history of breast cancer in sister at age 50 and breast cancer in sister at age 60. Benign US biopsy breast VAD LT of the left breast, September 12, 2019. Mastectomy of the right breast, 1999. 2 excisional biopsies of the left breast. Took hormonal contraceptives for 2 months. Physical Findings: Nurse did not find any significant physical abnormalities on exam. MG Diagnostic Mammo LT w CAD CC and MLO view(s) were taken of the left breast. Prior study comparison: September 12, 2019, left breast MG diagnostic mammo LT wo CAD. August 15, 2019, left breast MG diagnostic mammo LT w CAD. The breast tissue is heterogeneously dense. This may lower the sensitivity of mammography. No significant new findings when compared with previous films. These results were verbally communicated with the patient and result sheet given to the patient on 03/16/20. ASSESSMENT: Benign, BI-RAD 2 RECOMMENDATION: Follow-up diagnostic mammogram of the left breast in 1 year.
== END | disposition home or self-care (01) ==
LOC: RADMAMWWP 14:12
PROVIDERS: ATTEND Surgery
DX: R92.8 Other abnormal and inconclusive findings on diagnostic imaging of breast (principal)
CPT/HCPCS: 77065

== ENCOUNTER 2020-04-05 15:21 | Observation (INO) | payer MEDICARE, OTHER ==
[2020-04-05] MEDS ORDERED: SODIUM CHLORIDE 0.9% 1,000 ML IV STA (15:49)
[2020-04-05] MEDS ORDERED: ONDANSETRON 4 MG/2 ML VIAL IVP STA (15:49)
[2020-04-05] MEDS ORDERED: MORPHINE SULFATE 4 MG/ML SYRINGE IV STA (15:49)
--- NOTE | 2020-04-05 15:57 | ED ---
Headache HPI - General Chief Complaint: Headache Stated Complaint: Headache Time Seen by Provider: 04/05/20 15:37 Source: RN notes reviewed, old records reviewed Mode of arrival: wheelchair Limitations: no limitations, altered mental status (Secondary to severe pain) - History of Present Illness Initial Comments: This is a 5-year-old female DF for evaluation patient Dese for evaluation regards to severe headache patient with she was complaining of severe headache with nausea. No recent Travel history other complaints. Patient is in severe severe pain screaming moaning in pain denies history of similar pain before states pains and back were not top of her head. No fevers no trauma, no blood thinners Complaint: headache -: hour(s) (4) Onset Description: sudden Location: frontal, occipital, neck Severity: severe Severity scale (1-10): 10 Quality: aching, throbbing, sharp Consistency: constant Improves With: nothing Worsens With: none Context: occurred at rest Associated Symptoms: nausea, weakness Treatments Prior to Arrival: none - Related Data Home Medications Medication Instructions Recorded Confirmed RX: Acetaminophen [Tylenol Extra 500 mg PO TID PRN 09/26/18 12/27/19 Strength] Aspirin [Adult Low Dose Aspirin EC] 81 mg PO DAILY 08/02/19 12/29/19 Docusate [Colace] 100 mg PO BID 08/02/19 12/29/19 Fluticasone Nasal [place] [Flonase 1 spray EA NOSTRIL DAILY PRN 08/02/19 12/29/19 Nasal [place]] Immunotherapy 1 dose IV Q60D 08/02/19 12/29/19 Levothyroxine Sodium [Synthroid] 100 mcg PO DAILY 08/02/19 12/29/19 [place]-3/Dha/Epa/Fish Oil [Fish Oil 1.5 each PO DAILY 08/25/19 12/29/19 500 mg Softgel] Ubidecarenone [Co Q-10] 300 mg PO DAILY 08/25/19 12/29/19 Albuterol Inhaler [Ventolin Hfa 1 puff INHALATION DAILY PRN 12/27/19 12/29/19 Inhaler] Allergies Allergy/AdvReac Type Severity Reaction Status Date / Time Iodinated Contrast Media Allergy Severe Anaphylaxis Verified 12/27/19 14:50 [Iodinated Contrast Media - IV Dye] atorvastatin calcium AdvReac Nausea Verified 12/27/19 14:50 [From Lipitor] celecoxib [From Celebrex] AdvReac Nausea Verified 12/27/19 14:50 cephalexin [From Keflex] AdvReac thrush Verified 12/27/19 14:50 influenza virus vaccine, AdvReac Nausea & Verified 12/27/19 14:50 specific Vomiting & [influenza virus Diarrhea,high vacc,specific] fever Review of Systems ROS Statement: Those systems with pertinent positive or pertinent negative responses have been documented in the HPI. ROS Other: All systems not noted in ROS Statement are negative. Past Medical History Past Medical History: Atrial Fibrillation, Cancer, COPD, GERD/Reflux, Hearing Disorder / Deafness, Hyperlipidemia, Osteoarthritis (OA), Pneumonia, Thyroid Disorder Additional Past Medical History / Comment(s): Constipation, bowel adhesions. Hx bowel obstruction, right breast cancer-1997 no chemo or radiation, melanoma face 2014, osteoporosis, pneumonia Aug 2016, Lymphoma receives immunotherapy q60d History of Any Multi-Drug Resistant Organisms: MRSA Date of last positivie culture/infection: 2010? MDRO Source:: post surgical wound from bowel resection Past Surgical History: Appendectomy, Bowel Resection, Breast Surgery, Cholecystectomy, Hysterectomy Additional Past Surgical History / Comment(s): Bilateral cataracts, right mastectomy, port a cath left upper chest Past Anesthesia/Blood Transfusion Reactions: No Reported Reaction Additional Past Anesthesia/Blood Transfusion Reaction / Comment(s): no hx blood transfusion Past Psychological History: No Psychological Hx Reported Smoking Status: Never smoker Past Alcohol Use History: None Reported Past Drug Use History: None Reported - Past Family History Sister(s) Family Medical History: Cancer Additional Family Medical History / Comment(s): breast Cancer in 4 sisters Son(s) Family Medical History: Cancer Additional Family Medical History / Comment(s): LYMPHOMA, Congential heart problem. Daughter(s) Family Medical History: Cancer Additional Family Medical History / Comment(s): colon cancer Brother(s) Family Medical History: Cancer Additional Family Medical History / Comment(s): ONE BROTHER BLADDER CA, ONE WITH LUNG CA Mother Family Medical History: Cancer Additional Family Medical History / Comment(s): Stomach cancer Father Family Medical History: CVA/TIA General Exam - General Exam Comments Initial Comments: NIH of 0, no focal deficits, no meningeal signs General appearance: alert, in no apparent distress Head exam: Present: atraumatic, normocephalic, normal inspection Eye exam: Present: normal appearance, PERRL, EOMI. Absent: scleral icterus, conjunctival injection, periorbital swelling ENT exam: Present: normal exam, mucous membranes moist Neck exam: Present: normal inspection. Absent: tenderness, meningismus, lymphadenopathy Respiratory exam: Present: normal lung sounds bilaterally. Absent: respiratory distress, wheezes, rales, rhonchi, stridor Cardiovascular Exam: Present: regular rate, normal rhythm, normal heart sounds. Absent: systolic murmur, diastolic murmur, rubs, gallop, clicks GI/Abdominal exam: Present: soft, normal bowel sounds. Absent: distended, tenderness, guarding, rebound, rigid Extremities exam: Present: normal inspection, full ROM, normal capillary refill. Absent: tenderness, pedal edema, joint swelling, calf tenderness Back exam: Present: normal inspection Neurological exam: Present: alert, oriented X3, CN II-XII intact Psychiatric exam: Present: normal affect, normal mood Skin exam: Present: warm, dry, intact, normal color. Absent: rash Course Vital Signs 04/05/20 04/05/20 15:31 17:35 Temperature 98.0 F Pulse Rate 95 93 Respiratory 18 16 Rate Blood Pressure 129/71 148/67 O2 Sat by Pulse 96 97 Oximetry - Reevaluation(s) Reevaluation #1: 04/05/20 17:16 Medical record is reviewed Reevaluation #2: 04/05/20 17:16 Patient's evaluation is continued patient is not complaining of back pain and chest pain chest pain back pain pain radiating to the back. Reevaluation #3: 04/05/20 18:22 A she was in significant distress of anxiety and pain although that is improved with symptom control here in the ER Reevaluation #4: 04/05/20 18:22 Patient as well as the patient informed results, questions are answered, patient does admit to still chest pain, - Consultations Consultation #1: Spoke with [facility] agrees to admit this patient Medical Decision Making - Medical Decision Making 85 female to the ER for evaluation of severe headache and chest pain - Lab Data Result diagrams: 04/05/20 16:00 04/05/20 16:00 Lab Results 04/05/20 04/05/20 04/05/20 Range/Units 16:00 16:00 16:00 WBC 8.7 (3.8-10.6) k/uL RBC 4.89 (3.80-5.40) m/uL Hgb 14.6 (11.4-16.0) gm/dL Hct 45.0 (34.0-46.0) % MCV 92.0 (80.0-100.0) fL MCH 29.8 (25.0-35.0) pg MCHC 32.4 (31.0-37.0) g/dL RDW 12.1 (11.5-15.5) % Plt Count 154 (150-450) k/uL Neutrophils % 85 % Lymphocytes % 6 % Monocytes % 5 % Eosinophils % 4 % Basophils % 0 % Neutrophils # 7.4 (1.3-7.7) k/uL Lymphocytes # 0.5 L (1.0-4.8) k/uL Monocytes # 0.4 (0-1.0) k/uL Eosinophils # 0.4 (0-0.7) k/uL Basophils # 0.0 (0-0.2) k/uL PT 9.9 (9.0-12.0) sec INR 0.9 (<1.2) APTT 22.4 (22.0-30.0) sec Sodium 134 L (137-145) mmol/L Potassium 5.8 H (3.5-5.1) mmol/L Chloride 109 H (98-107) mmol/L Carbon Dioxide 14 L (22-30) mmol/L Anion Gap 11 mmol/L BUN 16 (7-17) mg/dL Creatinine 0.92 (0.52-1.04) mg/dL Est GFR (CKD-EPI)AfAm 66 (>60 ml/min/1.73 sqM) Est GFR (CKD-EPI)NonAf 57 (>60 ml/min/1.73 sqM) Glucose 91 (74-99) mg/dL Calcium 9.5 (8.4-10.2) mg/dL Phosphorus 3.6 (2.5-4.5) mg/dL Magnesium 1.8 (1.6-2.3) mg/dL Total Bilirubin 1.8 H (0.2-1.3) mg/dL AST 66 H (14-36) U/L ALT 19 (4-34) U/L Alkaline Phosphatase 150 H (38-126) U/L Creatine Kinase 97 (30-135) U/L Troponin I (0.000-0.034) ng/mL Total Protein 7.7 (6.3-8.2) g/dL Albumin 4.6 (3.5-5.0) g/dL 04/05/20 Range/Units 16:00 WBC (3.8-10.6) k/uL RBC (3.80-5.40) m/uL Hgb (11.4-16.0) gm/dL Hct (34.0-46.0) % MCV (80.0-100.0) fL MCH (25.0-35.0) pg MCHC (31.0-37.0) g/dL RDW (11.5-15.5) % Plt Count (150-450) k/uL Neutrophils % % Lymphocytes % % Monocytes % % Eosinophils % % Basophils % % Neutrophils # (1.3-7.7) k/uL Lymphocytes # (1.0-4.8) k/uL Monocytes # (0-1.0) k/uL Eosinophils # (0-0.7) k/uL Basophils # (0-0.2) k/uL PT (9.0-12.0) sec INR (<1.2) APTT (22.0-30.0) sec Sodium (137-145) mmol/L Potassium (3.5-5.1) mmol/L Chloride (98-107) mmol/L Carbon Dioxide (22-30) mmol/L Anion Gap mmol/L BUN (7-17) mg/dL Creatinine (0.52-1.04) mg/dL Est GFR (CKD-EPI)AfAm (>60 ml/min/1.73 sqM) Est GFR (CKD-EPI)NonAf (>60 ml/min/1.73 sqM) Glucose (74-99) mg/dL Calcium (8.4-10.2) mg/dL Phosphorus (2.5-4.5) mg/dL Magnesium (1.6-2.3) mg/dL Total Bilirubin (0.2-1.3) mg/dL AST (14-36) U/L ALT (4-34) U/L Alkaline Phosphatase (38-126) U/L Creatine Kinase (30-135) U/L Troponin I <0.012 (0.000-0.034) ng/mL Total Protein (6.3-8.2) g/dL Albumin (3.5-5.0) g/dL - EKG Data -: EKG Interpreted by Me (EKG sinus rhythm 87 SD 174 QRS 86 QTc 438) Disposition Clinical Impression: Chest pain, Abdominal pain, Headache Disposition: ADMITTED IP TO THIS HOSP Condition: Fair Is patient prescribed a controlled substance at d/c from ED?: No Referrals: Rob Arias MD [Primary Care Provider] - 1-2 days
[2020-04-05] MEDS ORDERED: methylPREDNISolone SOD SUCCI 125 MG/2 ML VIAL IV STA (16:01)
[2020-04-05] MEDS ORDERED: diphenhydrAMINE 50 MG/ML 1 ML VIAL IVP STA (16:01)
[2020-04-05] MEDS ORDERED: FAMOTIDINE 20 MG/2 ML VIAL IV STA (16:01)
[2020-04-05 16:14] LABS: Basophils % (A) 0 %; Eosinophils # (A) 0.4 k/uL (0-0.7); Eosinophils % (A) 4 %; HGB 14.6 gm/dL (11.4-16.0); Lymphocytes # (A) 0.5 k/uL (1.0-4.8); Lymphocytes % (A) 6 %; MCH 29.8 pg (25.0-35.0); MCHC 32.4 g/dL (31.0-37.0); Mean Platelet Volume 7.2; Monocytes # (A) 0.4 k/uL (0-1.0); Monocytes % (A) 5 %; Neutrophils # (A) 7.4 k/uL (1.3-7.7); Neutrophils % (A) 85 %; Platelet Count 154 k/uL (150-450); RBC 4.89 m/uL (3.80-5.40); RDW 12.1 % (11.5-15.5); WBC 8.7 k/uL (3.8-10.6)
[2020-04-05 16:26] LABS: INR 0.9 (<1.2); Partial Thromboplastin Time 22.4 sec (22.0-30.0); Prothrombin Time 9.9 sec (9.0-12.0)
--- NOTE | 2020-04-05 16:45 | CT ---
EXAMINATION TYPE: CT brain wo con DATE OF EXAM: 04/05/2020 COMPARISON: 11/03/2019 INDICATION: Syncopal episode today. Superior headache DLP: 1127.4 mGycm, Automated exposure control for dose reduction was used. CONTRAST: None CT of the brain is performed utilizing 3 mm thick sections through the posterior fossa and 3 mm thick sections through the remaining calvarium. Study is performed within 24 hours of arrival to the hosp ital. No abnormal hyperdensity is present to suggest an acute intracranial hemorrhage. No mass lesion is evident. No acute infarcts are evident. Mild periventricular white matter hypodensity is present, likely on th e basis of chronic white matter ischemic changes Ventricles and sulci are appropriate for the patient age. Paranasal sinuses and mastoid air cells within the [id number] are clear. IMPRESSIONS: 1. Mild periventricular white matter chronic appearing ischemic changes, stable from prior exam. 2. No acute intracranial process
[2020-04-05 17:01] LABS: Albumin 4.6 g/dL (3.5-5.0); Calcium 9.5 mg/dL (8.4-10.2); Magnesium 1.8 mg/dL (1.6-2.3); Phosphorus 3.6 mg/dL (2.5-4.5); Potassium 5.8 mmol/L (3.5-5.1); Total Bilirubin 1.8 mg/dL (0.2-1.3); Total Protein 7.7 g/dL (6.3-8.2)
[2020-04-05] MEDS ORDERED: HYDROmorphone 1 MG/ML 1 ML SYRINGE IVP PRN (17:05)
[2020-04-05] MEDS ORDERED: HYDROmorphone 1 MG/ML 1 ML SYRINGE IVP STA (17:05)
[2020-04-05] MEDS ORDERED: LORazepam 2 MG/ML INJ IV STA (17:13)
--- NOTE | 2020-04-05 18:06 | CT ---
EXAMINATION TYPE: CT angio COW [place] DATE OF EXAM: 04/05/2020 COMPARISON: None HISTORY: Headache. CT DLP: 1137.6 mGycm Automated exposure control for dose reduction was used. CONTRAST: Performed with IV Contrast, patient injected with 50ml mL of Isovue 370. There are 3-D post processed images. There are images obtained from the skull base to the vertex of t he brain with IV contrast. There is arterial flow in both vertebral arteries. Right vertebral artery is larger than the left. Th ere is arterial flow in the vertebrobasilar artery system. There is arterial flow in the anterior mid dle and posterior cerebral arteries bilaterally. I see no sign of intracranial aneurysm or neovascula rity. There is no evidence of hemodynamic stenosis. Posterior cerebral arteries appear to fill mostly through the basilar artery. There is no mass effect. There is normal contrast opacification of the venous sinuses. IMPRESSION: Negative CT angiogram of the brain.
--- NOTE | 2020-04-05 18:18 | CT ---
EXAMINATION TYPE: CT angio thor/abd pel aorta DATE OF EXAM: 04/05/2020 COMPARISON: None HISTORY: Abdominal pain. CT DLP: 846.9 mGycm Automated exposure control for dose reduction was used. CONTRAST: Performed with IV Contrast, patient injected with 50ml mL of Isovue 370. Images obtained from the thoracic inlet to the floor the pelvis with 3-D post processed images. 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 Heart is enlarged. There is no pericardial effusion. T here is no aortic dissection. I see no filling defects in the pulmonary arteries. Thoracic aorta is a theromatous. There is arterial flow in the celiac artery and superior mesenteric artery. There is plaque formation at the origins of the arteries. There is arterial flow in both renal arteries. There is arterial [place] w in the iliac and femoral arteries. I see no hemodynamic stenosis. There is variable plaque formatio n and luminal narrowing of the iliac arteries up to 50%. There is no abdominal aortic aneurysm. There is no dissection. There is 2.5 cm irregular masslike infiltrate at the left upper lobe posteriorly. There is coarse che undglass interstitial infiltrates in the mid and lower lung michelle posteriorly. There is no pleural e ffusion. There are no hilar masses. There is dilation of the intra and extrahepatic bile ducts. The common bile duct measures 2.5 cm. Spl een is intact. There is no pancreatic mass. The stomach is intact. Kidneys show satisfactory contrast opacification. There is no hydronephrosis. There is no retroperitoneal adenopathy. Bladder distends smoothly. There is no free fluid in the pelvis. There is no sign of a bowel obstruct ion. There is 2 x 3 cm umbilical hernia that contains fat. There is no sign of free air. Vertebra hav e normal alignment. There is no significant compression deformity. The bony pelvis is intact. IMPRESSION: There is atherosclerotic vascular disease. No aortic aneurysm or dissection. No evidence of hemodynam ic stenosis. No evidence of pulmonary embolism. Left upper lobe mass increased compared to old exam a nd consistent with tumor. There are new bilateral interstitial infiltrates in the lung michelle compare d to old exam. This could relate to heart failure. Heart appears increased compared to old exam. Dilated biliary tree not significantly different than old exam. No obstructing lesion seen.
[2020-04-05] MEDS ORDERED: ASPIRIN 81 MG PO STA (18:20)
[2020-04-05] MEDS ORDERED: NITROGLYCERIN SL TABS 0.4 MG TAB SUBLINGUAL PRN (18:20)
[2020-04-05] MEDS ORDERED: MORPHINE SULFATE 4 MG/ML SYRINGE IVP PRN (18:22)
[2020-04-05] MEDS ORDERED: LORazepam 2 MG/ML INJ IV PRN (18:22)
[2020-04-05] MEDS ORDERED: ONDANSETRON 4 MG/2 ML VIAL IVP PRN (18:22)
[2020-04-06] MEDS: METOPROLOL TARTRATE 25 MG TAB PO SCH ×2 (01:44→09:24)
[2020-04-06 04:28] VITALS: TEMP 97.4
[2020-04-06 06:56] LABS: Cholesterol 231 mg/dL (<200); HDL Cholesterol 61 mg/dL (40-60); LDL Cholesterol,Calculated 148 mg/dL (0-99); Triglycerides 109 mg/dL (<150)
[2020-04-06 08:20] VITALS: BP 108/49; PULSE 67; RESP 16
[2020-04-06] MEDS ORDERED: ASPIRIN 325 MG TAB PO SCH (09:00)
--- NOTE | 2020-04-06 10:10 | P.CRDCN ---
History of Present Illness Consult date: 04/06/20 History of present illness: CHIEF COMPLAINT: Chest pain HISTORY OF PRESENT ILLNESS: This is a 85-year old female with a past medical history significant for hypothyroidism and COPD. Patient states she used to follow in the office with Dr. Casarez, but has not been back to the office since he retired. We have been asked to see the patient in consultation for chest pain. Patient examined this morning at the bedside. is present and provides most of the HPI. He reports that the patient was recently diagnosed with a urinary tract infection and was started on Macrobid by her primary care physician. The patient took her medication yesterday and approximately an hour afterwards began having a severe headache that radiated down her neck. The patient also reports having some left lateral wall chest discomfort and left flank pain. The patient currently denies any chest pain or shortness of breath. Denies lightheadedness or dizziness. Denies palpitations. DIAGNOSTICS: EKG reveals sinus rhythm with PACs. CTA of brain and CT of brain negative for acute process CTA of chest reveals 4 cm aortic aneurysm and possible heart failure Laboratory data: WBC 8.7. Hemoglobin 14.6. Platelet count 154. Sodium 134. Potassium 5.8. BUN 16. Creatinine 0.92. Magnesium 1.8. Current home cardiac medications include aspirin 81 mg daily. Echocardiogram completed in February 2020 revealed ejection fraction 55-60%, moderate mitral regurgitation, mild mitral stenosis, moderate tricuspid regurgitation, and borderline pulmonary artery hypertension REVIEW OF SYSTEMS: At the time of my exam: CONSTITUTIONAL: Denies fever or chills. HEENT: Denies blurred vision, vision changes, or eye pain. Denies hemoptysis CARDIOVASCULAR: Denies chest pain, orthopnea, PND or palpitations RESPIRATORY: No shortness of breath. GASTROINTESTINAL: Denies abdominal pain. Denies nausea or vomiting. HEMATOLOGIC: Denies bleeding disorders. GENITOURINARY: Denies any blood in urine. SKIN: Denies pruitis. Denies rash. PHYSICAL EXAM: VITAL SIGNS: Reviewed. GENERAL: Well-developed in no acute distress. HEENT: Head is normocephalic. Pupils are equal, round. Sclerae anicteric. Mucous membranes of the mouth are moist. Neck supple. No JVD or thyromegaly LUNGS: Respirations even and unlabored. Lungs essentially clear to auscultation bilaterally. HEART: Regular rate and rhythm. S1 and S2 heard. ABDOMEN: Soft. Nondistended. Nontender. EXTREMITIES: Normal range of motion. No clubbing or cyanosis. Peripheral pulses intact. No lower extremity edema NEUROLOGIC: Awake and alert. Oriented x 3. ASSESSMENT: Chest pain, atypical Recent diagnosis of urinary tract infection Hypothyroidism Hyperkalemia PLAN: An acute coronary event has been ruled out No need to repeat echocardiogram as this was just performed in February 2020 Repeat BMP to ensure hyperkalemia has resolved Patient is stable for discharge from a cardiac perspective Nurse practitioner note has been reviewed by physician. Signing provider agrees with the documented findings, assessment, and plan of care. Past Medical History Past Medical History: Atrial Fibrillation, Cancer, COPD, GERD/Reflux, Hearing Disorder / Deafness, Hyperlipidemia, Osteoarthritis (OA), Pneumonia, Thyroid Disorder Additional Past Medical History / Comment(s): Constipation, bowel adhesions. Hx bowel obstruction, right breast cancer-1997 no chemo or radiation, melanoma face 2014, osteoporosis, pneumonia Aug 2016, Lymphoma receives immunotherapy q60d History of Any Multi-Drug Resistant Organisms: MRSA Date of last positivie culture/infection: 2010? MDRO Source:: post surgical wound from bowel resection Past Surgical History: Appendectomy, Bowel Resection, Breast Surgery, Cholecystectomy, Hysterectomy Additional Past Surgical History / Comment(s): Bilateral cataracts, right mastectomy, port a cath left upper chest Past Anesthesia/Blood Transfusion Reactions: No Reported Reaction Additional Past Anesthesia/Blood Transfusion Reaction / Comment(s): no hx blood transfusion Past Psychological History: No Psychological Hx Reported Smoking Status: Former smoker Past Alcohol Use History: None Reported Additional Past Alcohol Use History / Comment(s): smoked for 1 yr at age 20 Past Drug Use History: None Reported - Past Family History Sister(s) Family Medical History: Cancer Additional Family Medical History / Comment(s): breast Cancer in 4 sisters Son(s) Family Medical History: Cancer Additional Family Medical History / Comment(s): LYMPHOMA, Congential heart problem. Daughter(s) Family Medical History: Cancer Additional Family Medical History / Comment(s): colon cancer Brother(s) Family Medical History: Cancer Additional Family Medical History / Comment(s): ONE BROTHER BLADDER CA, ONE WITH LUNG CA Mother Family Medical History: Cancer Additional Family Medical History / Comment(s): Stomach cancer Father Family Medical History: CVA/TIA Medications and Allergies Home Medications Medication Instructions Recorded Confirmed Type Acetaminophen [Tylenol Extra 500 mg PO TID PRN 09/26/18 04/05/20 History Strength] Aspirin [Adult Low Dose Aspirin EC] 81 mg PO DAILY 08/02/19 04/05/20 History Docusate [Colace] 100 mg PO BID PRN 08/02/19 04/05/20 History Fluticasone Nasal [place] [Flonase 1 spray EA NOSTRIL DAILY PRN 08/02/19 04/05/20 History Nasal [place]] Immunotherapy 1 dose IV Q60D 08/02/19 04/05/20 History Levothyroxine Sodium [Synthroid] 100 mcg PO DAILY 08/02/19 04/05/20 History [place]-3/Dha/Epa/Fish Oil [Fish Oil 1 tab PO DAILY 08/25/19 04/05/20 History 500 mg Softgel] Ubidecarenone [Co Q-10] 300 mg PO DAILY 08/25/19 04/05/20 History Albuterol Inhaler [Ventolin Hfa 1 puff INHALATION DAILY PRN 12/27/19 04/05/20 History Inhaler] Immune Booster (Unknown Strength) 1 tab PO DAILY 04/05/20 04/05/20 History L.acidoph,Paracasei, B.lactis 1 tab PO DAILY 04/05/20 04/05/20 History [Probiotic] Nitrofurantoin Monohyd/M-Cryst 100 mg PO Q12H 04/05/20 04/05/20 History [Macrobid] Prebiotic (Unknown Strength) 1 tab PO DAILY 04/05/20 04/05/20 History Vitamin B-12 (Unknown Strength) 1 tab PO DAILY 04/05/20 04/05/20 History Vitamin B3 (Unknown Strength) 1 tab PO DAILY 04/05/20 04/05/20 History Allergies Allergy/AdvReac Type Severity Reaction Status Date / Time Iodinated Contrast Media Allergy Severe Anaphylaxis Verified 04/05/20 19:42 [Iodinated Contrast Media - IV Dye] atorvastatin calcium AdvReac Nausea Verified 04/05/20 19:42 [From Lipitor] celecoxib [From Celebrex] AdvReac Nausea Verified 04/05/20 19:42 cephalexin [From Keflex] AdvReac thrush Verified 04/05/20 19:42 influenza virus vaccine, AdvReac Nausea & Verified 04/05/20 19:42 specific Vomiting & [influenza virus Diarrhea,high vacc,specific] fever Physical Exam Vitals: Vital Signs Temp Pulse Pulse Resp BP BP Pulse Ox 04/06/20 08:06 97.4 F L 67 16 108/49 96 04/06/20 03:00 97.4 F L 68 18 104/53 97 04/05/20 21:36 97.6 F 74 16 128/67 96 04/05/20 17:35 93 16 148/67 97 04/05/20 15:31 98.0 F 95 18 129/71 96 Intake and Output 04/05/20 04/06/20 04/06/20 22:59 06:59 14:59 Intake Total 0 Balance 0 Intake: Oral 0 Other: Voiding Method Toilet Toilet Incontinent Incontinent # Voids 1 1 Weight 63.503 kg Results 04/05/20 16:00 04/05/20 16:00 Cardiac Enzymes 04/05/20 04/05/20 04/05/20 Range/Units 16:00 16:00 19:49 AST 66 H (14-36) U/L Troponin I <0.012 <0.012 (0.000-0.034) ng/mL 04/05/20 Range/Units 22:36 AST (14-36) U/L Troponin I <0.012 (0.000-0.034) ng/mL Coagulation 04/05/20 Range/Units 16:00 PT 9.9 (9.0-12.0) sec APTT 22.4 (22.0-30.0) sec Lipids 04/06/20 Range/Units 06:10 Triglycerides 109 (<150) mg/dL Cholesterol 231 H (<200) mg/dL HDL Cholesterol 61 H (40-60) mg/dL CBC 04/05/20 Range/Units 16:00 WBC 8.7 (3.8-10.6) k/uL RBC 4.89 (3.80-5.40) m/uL Hgb 14.6 (11.4-16.0) gm/dL Hct 45.0 (34.0-46.0) % Plt Count 154 (150-450) k/uL Comprehensive Metabolic Panel 04/05/20 Range/Units 16:00 Sodium 134 L (137-145) mmol/L Potassium 5.8 H (3.5-5.1) mmol/L Chloride 109 H (98-107) mmol/L Carbon Dioxide 14 L (22-30) mmol/L BUN 16 (7-17) mg/dL Creatinine 0.92 (0.52-1.04) mg/dL Glucose 91 (74-99) mg/dL Calcium 9.5 (8.4-10.2) mg/dL AST 66 H (14-36) U/L ALT 19 (4-34) U/L Alkaline Phosphatase 150 H (38-126) U/L Total Protein 7.7 (6.3-8.2) g/dL Albumin 4.6 (3.5-5.0) g/dL Current Medications Generic Name Dose Route Start Last Admin Trade Name Freq PRN Reason Stop Dose Admin Aspirin 325 mg 04/06/20 09:00 04/06/20 09:24 Aspirin 325 Mg Tab PO 325 mg DAILY DWAYNE Administration Hydromorphone HCl 1 mg 04/05/20 17:05 Hydromorphone 1 Mg/Ml 1 Ml Syringe IVP Q4HR PRN Pain Lorazepam 1 mg 04/05/20 18:22 Lorazepam 2 Mg/Ml Inj IV Q4HR PRN Anxiety Metoprolol Tartrate 25 mg 04/05/20 21:00 04/06/20 09:24 Metoprolol Tartrate 25 Mg Tab PO 25 mg BID DWAYNE Administration Morphine Sulfate 4 mg 04/05/20 18:22 Morphine Sulfate 4 Mg/Ml Syringe IVP Q4HR PRN Pain Nitroglycerin 0.4 mg 04/05/20 18:20 Nitroglycerin Sl Tabs 0.4 Mg Tab SUBLINGUAL Q5M PRN Chest Pain Ondansetron HCl 4 mg 04/05/20 18:22 Ondansetron 4 Mg/2 Ml Vial IVP Q6HR PRN Nausea And Vomiting Intake and Output 04/05/20 04/06/20 04/06/20 22:59 06:59 14:59 Intake Total 0 Balance 0 Intake: Oral 0 Other: Voiding Method Toilet Toilet Incontinent Incontinent # Voids 1 1 Weight 63.503 kg 04/05/20 16:00 04/05/20 16:00
[2020-04-06 10:20] LABS: Calcium 8.9 mg/dL (8.4-10.2); Potassium 4.4 mmol/L (3.5-5.1)
[2020-04-07] MEDS ORDERED: ASPIRIN 81 MG PO SCH (09:00)
--- NOTE | 2020-04-20 16:21 | P.HPIM ---
History of Present Illness H&P Date: 04/06/20 Chief Complaint: Chest pain 85-year old female with a past medical history significant for hypothyroidism and COPD. Patient states she used to follow in the office with Dr. Casarez, but has not been back to the office since he retired. We have been asked to see the patient in consultation for chest pain. Patient examined this morning at the bedside. is present and provides most of the HPI. He reports that the patient was recently diagnosed with a urinary tract infection and was started on Macrobid by her primary care physician. The patient took her medication yesterday and approximately an hour afterwards began having a severe headache that radiated down her neck. The patient also reports having some left lateral wall chest discomfort and left flank pain. The patient currently denies any chest pain or shortness of breath. Denies lightheadedness or dizziness. Denies palpitations. Review of Systems REVIEW OF SYSTEMS: CONSTITUTIONAL: No fever, no malaise, no fatigue. HEENT: No recent visual problems or hearing problems. Denied any sore throat. CARDIOVASCULAR: No chest pain, orthopnea, PND, no palpitations, no syncope. PULMONARY: No shortness of breath, no cough, no hemoptysis. GASTROINTESTINAL: No diarrhea, no nausea, no vomiting, no abdominal pain. NEUROLOGICAL: No headaches, no weakness, no numbness. HEMATOLOGICAL: Denies any bleeding or petechiae. GENITOURINARY: Denies any burning micturition, frequency, or urgency. MUSCULOSKELETAL/RHEUMATOLOGICAL: Denies any joint pain, swelling, or any muscle pain. ENDOCRINE: Denies any polyuria or polydipsia. The rest of the 14-point review of systems is negative. Past Medical History Past Medical History: Atrial Fibrillation, Cancer, COPD, GERD/Reflux, Hearing Disorder / Deafness, Hyperlipidemia, Osteoarthritis (OA), Pneumonia, Thyroid Disorder Additional Past Medical History / Comment(s): Constipation, bowel adhesions. Hx bowel obstruction, right breast cancer-1997 no chemo or radiation, melanoma face 2014, osteoporosis, pneumonia Aug 2016, Lymphoma receives immunotherapy q60d History of Any Multi-Drug Resistant Organisms: MRSA Date of last positivie culture/infection: 2010? MDRO Source:: post surgical wound from bowel resection Past Surgical History: Appendectomy, Bowel Resection, Breast Surgery, Cholecystectomy, Hysterectomy Additional Past Surgical History / Comment(s): Bilateral cataracts, right mastectomy, port a cath left upper chest Past Anesthesia/Blood Transfusion Reactions: No Reported Reaction Additional Past Anesthesia/Blood Transfusion Reaction / Comment(s): no hx blood transfusion Past Psychological History: No Psychological Hx Reported Smoking Status: Former smoker Past Alcohol Use History: None Reported Additional Past Alcohol Use History / Comment(s): smoked for 1 yr at age 20 Past Drug Use History: None Reported - Past Family History Sister(s) Family Medical History: Cancer Additional Family Medical History / Comment(s): breast Cancer in 4 sisters Son(s) Family Medical History: Cancer Additional Family Medical History / Comment(s): LYMPHOMA, Congential heart problem. Daughter(s) Family Medical History: Cancer Additional Family Medical History / Comment(s): colon cancer Brother(s) Family Medical History: Cancer Additional Family Medical History / Comment(s): ONE BROTHER BLADDER CA, ONE WITH LUNG CA Mother Family Medical History: Cancer Additional Family Medical History / Comment(s): Stomach cancer Father Family Medical History: CVA/TIA Medications and Allergies Home Medications Medication Instructions Recorded Confirmed Type Acetaminophen [Tylenol Extra 500 mg PO TID PRN 09/26/18 04/05/20 History Strength] Aspirin [Adult Low Dose Aspirin EC] 81 mg PO DAILY 08/02/19 04/05/20 History Docusate [Colace] 100 mg PO BID PRN 08/02/19 04/05/20 History Fluticasone Nasal [place] [Flonase 1 spray EA NOSTRIL DAILY PRN 08/02/19 04/05/20 History Nasal [place]] Immunotherapy 1 dose IV Q60D 08/02/19 04/05/20 History Levothyroxine Sodium [Synthroid] 100 mcg PO DAILY 08/02/19 04/05/20 History [place]-3/Dha/Epa/Fish Oil [Fish Oil 1 tab PO DAILY 08/25/19 04/05/20 History 500 mg Softgel] Ubidecarenone [Co Q-10] 300 mg PO DAILY 08/25/19 04/05/20 History Albuterol Inhaler [Ventolin Hfa 1 puff INHALATION DAILY PRN 12/27/19 04/05/20 History Inhaler] Immune Booster (Unknown Strength) 1 tab PO DAILY 04/05/20 04/05/20 History L.acidoph,Paracasei, B.lactis 1 tab PO DAILY 04/05/20 04/05/20 History [Probiotic] Nitrofurantoin Monohyd/M-Cryst 100 mg PO Q12H 04/05/20 04/05/20 History [Macrobid] Prebiotic (Unknown Strength) 1 tab PO DAILY 04/05/20 04/05/20 History Vitamin B-12 (Unknown Strength) 1 tab PO DAILY 04/05/20 04/05/20 History Vitamin B3 (Unknown Strength) 1 tab PO DAILY 04/05/20 04/05/20 History Allergies Allergy/AdvReac Type Severity Reaction Status Date / Time Iodinated Contrast Media Allergy Severe Anaphylaxis Verified 04/05/20 19:42 [Iodinated Contrast Media - IV Dye] atorvastatin calcium AdvReac Nausea Verified 04/05/20 19:42 [From Lipitor] celecoxib [From Celebrex] AdvReac Nausea Verified 04/05/20 19:42 cephalexin [From Keflex] AdvReac thrush Verified 04/05/20 19:42 influenza virus vaccine, AdvReac Nausea & Verified 04/05/20 19:42 specific Vomiting & [influenza virus Diarrhea,high vacc,specific] fever Physical Exam Vitals: Vital Signs Temp Pulse Pulse Resp BP BP Pulse Ox 04/06/20 09:00 67 16 04/06/20 08:06 97.4 F L 67 16 108/49 96 04/06/20 03:00 97.4 F L 68 18 104/53 97 04/05/20 21:36 97.6 F 74 16 128/67 96 04/05/20 17:35 93 16 148/67 97 04/05/20 15:31 98.0 F 95 18 129/71 96 Intake and Output 04/05/20 04/06/20 04/06/20 22:59 06:59 14:59 Intake Total 480 Balance 480 Intake: Oral 480 Other: Voiding Method Toilet Toilet Toilet Incontinent Incontinent Incontinent # Voids 1 1 Weight 63.503 kg - Constitutional General appearance: Present: average body habitus, cooperative, no acute distress - EENT Eyes: Present: anicteric sclerae, EOMI, PERRLA, normal appearance ENT: Present: hearing grossly normal, normal oropharynx Ears: bilateral: normal - Neck Neck: Present: normal ROM. Absent: lymphadenopathy, rigidity, thyromegaly Carotids: negative: bruit present Thyroid: bilateral: normal size, negative: enlarged, nodule - Respiratory Respiratory: bilateral: CTA, negative: rales, rhonchi, wheezing - Cardiovascular Rhythm: regular Heart sounds: normal: S1, S2 Abnormal Heart Sounds: Absent: systolic murmur, diastolic murmur - Gastrointestinal General gastrointestinal: Present: normal bowel sounds, soft. Absent: distended, organomegaly, tenderness - Genitourinary Genitourinary Comment(s): deferred - Integumentary Integumentary: Present: normal turgor. Absent: jaundiced, rash, ulcer - Neurologic Neurologic: Present: CNII-XII intact. Absent: focal deficits - Musculoskeletal Musculoskeletal: Present: gait normal, strength equal bilaterally - Psychiatric Psychiatric: Present: A&O x's 3, appropriate affect, intact judgment & insight Results CBC & Chem 7: 04/05/20 16:00 04/06/20 06:10 Labs: Abnormal Lab Results - Last 24 Hours (Table) 04/05/20 04/05/20 04/06/20 Range/Units 16:00 16:00 06:10 Lymphocytes # 0.5 L (1.0-4.8) k/uL Sodium 134 L (137-145) mmol/L Potassium 5.8 H (3.5-5.1) mmol/L Chloride 109 H (98-107) mmol/L Carbon Dioxide 14 L (22-30) mmol/L Glucose (74-99) mg/dL Total Bilirubin 1.8 H (0.2-1.3) mg/dL AST 66 H (14-36) U/L Alkaline Phosphatase 150 H (38-126) U/L Cholesterol 231 H (<200) mg/dL LDL Cholesterol, Calc 148 H (0-99) mg/dL HDL Cholesterol 61 H (40-60) mg/dL 04/06/20 Range/Units 06:10 Lymphocytes # (1.0-4.8) k/uL Sodium 134 L (137-145) mmol/L Potassium (3.5-5.1) mmol/L Chloride (98-107) mmol/L Carbon Dioxide (22-30) mmol/L Glucose 142 H (74-99) mg/dL Total Bilirubin (0.2-1.3) mg/dL AST (14-36) U/L Alkaline Phosphatase (38-126) U/L Cholesterol (<200) mg/dL LDL Cholesterol, Calc (0-99) mg/dL HDL Cholesterol (40-60) mg/dL Assessment and Plan Assessment: 1. Chest rule out acute coronary syndrome; we will admit to cardiac telemetry a nd monitor cardiac enzymes every 83; monitor EKG; obtain 2-D echo; consult cardiology 2. Recent UTI; continue with home treatment 3. Hypothyroidism; continue with home dose of levothyroxine 4. Hyperlipidemia; statin therapy DVT prophylaxis; SCDs CODE STATUS; full code
--- NOTE | 2020-04-20 16:38 | P.DS ---
Providers Date of admission: 04/05/20 18:21 Expected date of discharge: 04/06/20 Attending physician: Mery Ramirez Consults: 04/05/20 18:21 Consult Physician Urgent Consulting Provider: Juancho Hercules Consult Reason/Comments: cp Do you want consulting provider notified?: Yes Primary care physician: Rob Arias [facility] Course: 85-year old female with a past medical history significant for hypothyroidism and COPD. Patient states she used to follow in the office with Dr. Casarez, but has not been back to the office since he retired. We have been asked to see the patient in consultation for chest pain. Patient examined this morning at the bedside. is present and provides most of the HPI. He reports that the patient was recently diagnosed with a urinary tract infection and was started on Macrobid by her primary care physician. The patient took her medication yesterday and approximately an hour afterwards began having a severe headache that radiated down her neck. The patient also reports having some left lateral wall chest discomfort and left flank pain. The patient currently denies any chest pain or shortness of breath. Denies lightheadedness or dizziness. Denies palpitations. Patient was admitted by cardiology and acute coronary syndrome was ruled out; cardiology reviewed echocardiogram from February 2020 and did not want any further workup; patient's hyperkalemia resolved and was discharged home in a stable condition Patient Condition at Discharge: Fair Plan - Discharge Summary Discharge Rx Participant: No New Discharge Prescriptions: Continue Acetaminophen [Tylenol Extra Strength] 500 mg PO TID PRN PRN Reason: Pain Levothyroxine Sodium [Synthroid] 100 mcg PO DAILY Fluticasone Nasal [place] [Flonase Nasal [place]] 1 spray EA NOSTRIL DAILY PRN PRN Reason: Runny Nose Aspirin [Adult Low Dose Aspirin EC] 81 mg PO DAILY Docusate [Colace] 100 mg PO BID PRN PRN Reason: Constipation Immunotherapy 1 dose IV Q60D Ubidecarenone [Co Q-10] 300 mg PO DAILY [place]-3/Dha/Epa/Fish Oil [Fish Oil 500 mg Softgel] 1 tab PO DAILY Albuterol Inhaler [Ventolin Hfa Inhaler] 1 puff INHALATION DAILY PRN PRN Reason: Dyspnea L.acidoph,Paracasei, B.lactis [Probiotic] 1 tab PO DAILY Immune Booster (Unknown Strength) 1 tab PO DAILY Vitamin B3 (Unknown Strength) 1 tab PO DAILY Vitamin B-12 (Unknown Strength) 1 tab PO DAILY Prebiotic (Unknown Strength) 1 tab PO DAILY Nitrofurantoin Monohyd/M-Cryst [Macrobid] 100 mg PO Q12H Discharge Medication List Acetaminophen [Tylenol Extra Strength] 500 mg PO TID PRN 09/26/18 [History] Aspirin [Adult Low Dose Aspirin EC] 81 mg PO DAILY 08/02/19 [History] Docusate [Colace] 100 mg PO BID PRN 08/02/19 [History] Fluticasone Nasal [place] [Flonase Nasal [place]] 1 spray EA NOSTRIL DAILY PRN 08/02/19 [History] Immunotherapy 1 dose IV Q60D 08/02/19 [History] Levothyroxine Sodium [Synthroid] 100 mcg PO DAILY 08/02/19 [History] [place]-3/Dha/Epa/Fish Oil [Fish Oil 500 mg Softgel] 1 tab PO DAILY 08/25/19 [History] Ubidecarenone [Co Q-10] 300 mg PO DAILY 08/25/19 [History] Albuterol Inhaler [Ventolin Hfa Inhaler] 1 puff INHALATION DAILY PRN 12/27/19 [History] Immune Booster (Unknown Strength) 1 tab PO DAILY 04/05/20 [History] L.acidoph,Paracasei, B.lactis [Probiotic] 1 tab PO DAILY 04/05/20 [History] Nitrofurantoin Monohyd/M-Cryst [Macrobid] 100 mg PO Q12H 04/05/20 [History] Prebiotic (Unknown Strength) 1 tab PO DAILY 04/05/20 [History] Vitamin B-12 (Unknown Strength) 1 tab PO DAILY 04/05/20 [History] Vitamin B3 (Unknown Strength) 1 tab PO DAILY 04/05/20 [History] Follow up Appointment(s)/Referral(s): Rob Arias MD [Primary Care Provider] - 04/11/20 2:20 pm Patient Instructions/Handouts: Chest Pain (GEN), Hyperkalemia (GEN) Discharge Disposition: HOME SELF-CARE
== END 2020-04-06 14:00 | disposition home or self-care (01) ==
LOC: EC 15:21 → 3NCARDOBS 18:21
PROVIDERS: ADMIT Hospitalist; ATTEND Hospitalist
DX: R51.9 Headache, unspecified (principal); R07.89 Other chest pain; R11.0 Nausea; N39.0 Urinary tract infection, site not specified; E03.9 Hypothyroidism, unspecified; E78.5 Hyperlipidemia, unspecified; E87.5 Hyperkalemia; H91.90 Unspecified hearing loss, unspecified ear; I48.91 Unspecified atrial fibrillation; J44.9 Chronic obstructive pulmonary disease, unspecified; Z79.82 Long term (current) use of aspirin; Z79.890 Hormone replacement therapy; Z80.0 Family history of malignant neoplasm of digestive organs; Z80.1 Family history of malignant neoplasm of trachea, bronchus and lung; Z80.3 Family history of malignant neoplasm of breast; Z80.52 Family history of malignant neoplasm of bladder; Z80.7 Family history of other malignant neoplasms of lymphoid, hematopoietic and related tissues; Z85.3 Personal history of malignant neoplasm of breast; Z87.891 Personal history of nicotine dependence; Z90.11 Acquired absence of right breast and nipple; Z90.710 Acquired absence of both cervix and uterus
CPT/HCPCS: 93005 ×2; 96374; 96375; 99285; 36415; 80061; 80053; 80048; 82550; 83735; 84100; 84484; 85025; 85610; 85730; 70496; 70450; 71275; 74174; G0378 ×2; J2060; J2270; J1200; J2930; J2405; Q9967

== ENCOUNTER → 2020-05-12 | Outpatient (CLI) | payer MEDICARE, OTHER ==
--- NOTE | 2020-05-14 07:06 | PE ---
EXAMINATION TYPE: PET CT fusion skull to thigh DATE OF EXAM: 05/12/2020 COMPARISON: Most recent PET CT June 18, 2019 and older PET CTs. Most recent CT April 05, 2020 an d older CTs HISTORY: History of right breast cancer 2000. Non-Hodgkin Lymphoma progress study. Originally diagn osed in 2019 currently on immunotherapy. TECHNIQUE: Following the intravenous administration of 8.9 mCi of F-18 FDG, whole body images are pe rformed from the skull base to the midthigh. Images are reviewed on the computer in the coronal, axi al, and sagittal planes. Reconstructed rotating images are created on independent workstation and re viewed on the computer. A localization noncontrast CT is performed in conjunction with the PET scan . SCAN: Subsequent Scan FINDINGS: MEAN SUV MEDIASTINUM: 2.01 MEAN SUV LIVER: 1.94 SKULL BASE AND NECK: No new areas of suspicious hypermetabolic uptake. CHEST, MEDIASTINUM, AND HILAR REGION: Slightly larger and more hypermetabolic posterior left upper lo be nodule currently measuring 2.3 x 2.1 cm axial image 62 with max SUV of 6.75 on current study. No new suspicious hypermetabolic nodules or lymph nodes. ABDOMEN AND PELVIS: No new areas of abnormal hypermetabolic uptake. Normal excretion. OSSEOUS STRUCTURES: No new areas of abnormal hypermetabolic uptake. OTHER CT: There is stable left subclavian Mediport catheter terminating in SVC. Scleral calcification right globe is redemonstrated. Cardiomegaly with tiny pericardial effusion is fairly stable versus p rior. Coronary artery calcifications redemonstrated along with calcifications within the aortic and m itral valves. [id number] biapical pleural/parenchymal scarring. Surgical clips right axilla wit h absent right breast noted. Scar tissue left axilla. Cholecystectomy clips are redemonstrated. There is moderate calcified plaque of aorta extending into iliac branch vessels. There is low lying slightly prominent cecum into the right pelvis. Uterus is no сергей surgically absent. There is small fat- containing umbilical hernia redemonstrated. Slight thicken ing to both adrenal glands without hypermetabolic uptake is redemonstrated and stable consistent with benign lipid rich hyperplasia. There is dextroconvex scoliosis centered in the mid lumbar spine with multilevel spurring of the thor acolumbar spine and with multilevel facet arthropathy in the mid to lower lumbar spine. IMPRESSION: Local neoplastic progression. No new hypermetabolic lymph nodes or masses.
== END | disposition home or self-care (01) ==
LOC: RADPETMAIN 08:51
PROVIDERS: ATTEND Internal Medicine Hematology & Oncology
DX: C85.84 Other specified types of non-Hodgkin lymphoma, lymph nodes of axilla and upper limb (principal)
CPT/HCPCS: 78815; A9552

== ENCOUNTER 2020-06-02 05:18 | Observation (INO) | payer MEDICARE, OTHER ==
[2020-06-02 05:51] LABS: Basophils % (A) 0 %; Eosinophils # (A) 0.2 k/uL (0-0.7); Eosinophils % (A) 3 %; HCT 40.6 % (34.0-46.0); HGB 13.6 gm/dL (11.4-16.0); Lymphocytes # (A) 1.3 k/uL (1.0-4.8); Lymphocytes % (A) 17 %; MCH 30.6 pg (25.0-35.0); MCHC 33.6 g/dL (31.0-37.0); MCV 91.1 fL (80.0-100.0); Mean Platelet Volume 7.1; Monocytes # (A) 0.3 k/uL (0-1.0); Monocytes % (A) 5 %; Neutrophils # (A) 5.3 k/uL (1.3-7.7); Neutrophils % (A) 74 %; Platelet Count 190 k/uL (150-450); RBC 4.46 m/uL (3.80-5.40); WBC 7.2 k/uL (3.8-10.6)
--- NOTE | 2020-06-02 06:01 | ED ---
Chest Pain HPI - General Chief Complaint: Chest Pain Stated Complaint: Chest Pain Time Seen by Provider: 06/02/20 05:25 Source: patient, EMS Mode of arrival: EMS Limitations: no limitations - History of Present Illness Initial Comments: Patient is 85-year-old woman who presents to be evaluated for chest pain that came on this morning. The patient states she had been in her usual state of health when she went to sleep. She woke she is bathroom and then had the onset of substernal pain that she states was sharp and accompanied by diaphoresis. She then felt weak and they called EMS. She was given nitroglycerin and states she is feeling much better now though the nitroglycerin did give her a mild headache. On review of systems, patient states she was diagnosed recently with herpes zoster affecting the right side of her chest. She is taking Valtrex and Tylenol with codeine. She states that that pain is completely different from what she experienced this morning. MD Complaint: chest pain -: minutes(s) Onset: during rest Pain Location: substernal Pain Radiation: none Severity: moderate Quality: sharp Consistency: now resolved Improves With: nitroglycerin Worsens With: nothing Anginal Symptoms: diaphoresis Treatments Prior to Arrival: nitroglycerin - Related Data Home Medications Medication Instructions Recorded Confirmed Acetaminophen [Tylenol Extra 500 mg PO TID PRN 09/26/18 04/05/20 Strength] Aspirin [Adult Low Dose Aspirin EC] 81 mg PO DAILY 08/02/19 04/05/20 Docusate [Colace] 100 mg PO BID PRN 08/02/19 04/05/20 Fluticasone Nasal [place] [Flonase 1 spray EA NOSTRIL DAILY PRN 08/02/19 04/05/20 Nasal [place]] Immunotherapy 1 dose IV Q60D 08/02/19 04/05/20 Levothyroxine Sodium [Synthroid] 100 mcg PO DAILY 08/02/19 04/05/20 [place]-3/Dha/Epa/Fish Oil [Fish Oil 1 tab PO DAILY 08/25/19 04/05/20 500 mg Softgel] Ubidecarenone [Co Q-10] 300 mg PO DAILY 08/25/19 04/05/20 Albuterol Inhaler [Ventolin Hfa 1 puff INHALATION DAILY PRN 12/27/19 04/05/20 Inhaler] Immune Booster (Unknown Strength) 1 tab PO DAILY 10/01/20 10/01/20 L.acidoph,Paracasei, B.lactis 1 tab PO DAILY 04/05/20 04/05/20 [Probiotic] Nitrofurantoin Monohyd/M-Cryst 100 mg PO Q12H 04/05/20 04/05/20 [Macrobid] Prebiotic (Unknown Strength) 1 tab PO DAILY 04/05/20 04/05/20 Vitamin B-12 (Unknown Strength) 1 tab PO DAILY 04/05/20 04/05/20 Vitamin B3 (Unknown Strength) 1 tab PO DAILY 04/05/20 04/05/20 Allergies Allergy/AdvReac Type Severity Reaction Status Date / Time Iodinated Contrast Media Allergy Severe Anaphylaxis Verified 06/02/20 05:26 [Iodinated Contrast Media - IV Dye] atorvastatin calcium AdvReac Nausea Verified 06/02/20 05:26 [From Lipitor] celecoxib [From Celebrex] AdvReac Nausea Verified 06/02/20 05:26 cephalexin [From Keflex] AdvReac thrush Verified 06/02/20 05:26 influenza virus vaccine, AdvReac Nausea & Verified 06/02/20 05:26 specific Vomiting & [influenza virus Diarrhea,high vacc,specific] fever Review of Systems ROS Statement: Those systems with pertinent positive or pertinent negative responses have been documented in the HPI. ROS Other: All systems not noted in ROS Statement are negative. Constitutional: Denies: fever, chills Respiratory: Reports: dyspnea. Denies: cough, wheezes Cardiovascular: Reports: chest pain. Denies: palpitations, orthopnea, edema, syncope Gastrointestinal: Denies: abdominal pain, nausea, vomiting, diarrhea Genitourinary: Denies: dysuria, hematuria Musculoskeletal: Denies: back pain Skin: Denies: rash Neurological: Denies: headache, weakness, numbness EKG Findings - EKG Comments: EKG Findings:: 12-lead ECG shows what appears to be in atrial fibrillation competing pacemaker rate 90 bpm - EKG Results: EKG: interpreted by ERMD - Blocks, [place], Hypertrophy, ST Abn: QRS axis and voltage: left axis deviation (-30 to -90) Chamber hypertrophy or enlargement: only voltage criteria for left ventricular hypertrophy Repolarization changes or abnormalities: nonspecific abnormality, ST segment, and/or T wave Past Medical History Past Medical History: Atrial Fibrillation, Cancer, COPD, GERD/Reflux, Hearing Disorder / Deafness, Hyperlipidemia, Osteoarthritis (OA), Pneumonia, Thyroid Disorder Additional Past Medical History / Comment(s): Constipation, bowel adhesions. Hx bowel obstruction, right breast cancer-1997 no chemo or radiation, melanoma face 2014, osteoporosis, pneumonia Aug 2016, Lymphoma receives immunotherapy q60d, active shingles History of Any Multi-Drug Resistant Organisms: MRSA Date of last positivie culture/infection: 2010? MDRO Source:: post surgical wound from bowel resection Past Surgical History: Appendectomy, Bowel Resection, Breast Surgery, Cholecystectomy, Hysterectomy Additional Past Surgical History / Comment(s): Bilateral cataracts, right mastectomy, port a cath left upper chest Past Anesthesia/Blood Transfusion Reactions: No Reported Reaction Additional Past Anesthesia/Blood Transfusion Reaction / Comment(s): no hx blood transfusion Past Psychological History: No Psychological Hx Reported Smoking Status: Former smoker Past Alcohol Use History: None Reported Past Drug Use History: None Reported - Past Family History Sister(s) Family Medical History: Cancer Additional Family Medical History / Comment(s): breast Cancer in 4 sisters Son(s) Family Medical History: Cancer Additional Family Medical History / Comment(s): LYMPHOMA, Congential heart problem. Daughter(s) Family Medical History: Cancer Additional Family Medical History / Comment(s): colon cancer Brother(s) Family Medical History: Cancer Additional Family Medical History / Comment(s): ONE BROTHER BLADDER CA, ONE WITH LUNG CA Mother Family Medical History: Cancer Additional Family Medical History / Comment(s): Stomach cancer Father Family Medical History: CVA/TIA General Exam Limitations: no limitations General appearance: alert, in no apparent distress Head exam: Present: atraumatic, normocephalic Eye exam: Present: normal appearance. Absent: scleral icterus, conjunctival injection Neck exam: Present: normal inspection, full ROM Respiratory exam: Present: normal lung sounds bilaterally. Absent: respiratory distress, wheezes, rales, rhonchi, stridor Cardiovascular Exam: Present: regular rate, normal rhythm, normal heart sounds. Absent: systolic murmur, diastolic murmur, rubs, gallop GI/Abdominal exam: Present: soft. Absent: distended, tenderness, guarding, rebo und, rigid, mass Extremities exam: Present: normal inspection, normal capillary refill. Absent: pedal edema, calf tenderness Back exam: Present: normal inspection. Absent: CVA tenderness (R), CVA tenderness (L) Neurological exam: Present: alert Skin exam: Present: warm, dry, intact, normal color. Absent: rash Course Vital Signs 06/02/20 06/02/20 06/02/20 05:20 05:29 07:19 Temperature 97.4 F L 97.9 F Pulse Rate 109 H 77 80 Respiratory 22 16 16 Rate Blood Pressure 169/100 148/67 133/55 O2 Sat by Pulse 98 66 L Oximetry Disposition Clinical Impression: Chest pain Disposition: ADMITTED IP TO THIS HOSP Condition: Good Instructions (If sedation given, give patient instructions): Chest Pain (ED) Is patient prescribed a controlled substance at d/c from ED?: No Referrals: Rob Arias MD [Primary Care Provider] - 1-2 days
[2020-06-02 06:03] LABS: Prothrombin Time 10.4 sec (9.0-12.0)
[2020-06-02 06:20] LABS: Albumin 3.6 g/dL (3.5-5.0); Magnesium 1.8 mg/dL (1.6-2.3); Potassium 3.9 mmol/L (3.5-5.1); Total Bilirubin 0.6 mg/dL (0.2-1.3); Total Protein 6.1 g/dL (6.3-8.2)
[2020-06-02 06:30] LABS: Partial Thromboplastin Time 21.7 sec (22.0-30.0)
[2020-06-02] MEDS ORDERED: NITROGLYCERIN SL TABS 0.4 MG TAB SUBLINGUAL PRN (07:15)
[2020-06-02] MEDS ORDERED: ACETAMINOPHEN TAB 500 MG TAB PO PRN (07:17)
[2020-06-02] MEDS ORDERED: ALBUTEROL NEBULIZED 2.5 MG/3 ML INHALATION PRN (07:17)
[2020-06-02] MEDS ORDERED: DOCUSATE 100 MG CAP PO PRN (07:17)
--- NOTE | 2020-06-02 07:48 | XR ---
EXAMINATION TYPE: XR chest 2V DATE OF EXAM: 06/02/2020 COMPARISON: Chest x-ray October 18, 2018. CT chest January 18, 2020. Most recent PET/CT May 12, 2020 HISTORY: Chest pain. History of lymphoma. TECHNIQUE: Frontal and lateral views of the chest are obtained. FINDINGS: There is background chronic emphysematous change redemonstrated. Stable left subclavian Me diport catheter. Left upper lung nodule redemonstrated near EKG lead. No new focal airspace opacity, pleural effusion, or pneumothorax seen bilaterally. Stable mild cardiomegaly. Right axillary surgical clips redemonstrated. Osseous structures are demineralized with underlying scoliosis. IMPRESSION: Chronic changes and mild cardiomegaly without new acute pulmonary process.
[2020-06-02] MEDS: ASPIRIN 81 MG PO SCH (09:45)
[2020-06-02] MEDS: valACYclovir HCL 1,000 MG TABLET PO SCH ×2 (09:45→22:29)
[2020-06-02] MEDS: ISOSORBIDE MONONITRATE ER 30 MG TAB.ER.24H PO SCH (11:32)
[2020-06-02] MEDS: METOPROLOL TARTRATE 25 MG TAB PO SCH ×2 (11:32→22:18)
--- NOTE | 2020-06-02 12:12 | P.CRDCN ---
History of Present Illness Consult date: 06/02/20 Requesting physician: Mery Ramirez Reason for Consult (text): chest pain Chief complaint: chest pain, diaphoresis, weakness History of present illness: This is a pleasant 85-year-old female patient with a history of hypothyroidism, lymphoma, recent shingles outbreak and COPD. She previously followed with Dr. Casarez but has not been seen in the office since his detention. She presented to the emergency department after waking early this morning to get up to go to the bathroom and developed some chest pain that lasted about 5-10 minutes and after going to the bathroom she became very diaphoretic and weak. She did not have a bowel movement she only urinated. She's been feeling better since coming to the emergency department. Upon arrival EKG showed sinus rhythm with frequent PACs. She's been afebrile. Blood pressure has been elevated as high as 199/86. Heart rates been high 60s to 100. Laboratory values show normal CBC, sodium 135, potassium 3.9, BUN 16, creatinine 0.94 and troponins negative 2. Chest x- ray showed chronic changes and mild cardiomegaly without new acute pulmonary process. Home medications include multiple supplements, Valtrex, levothyroxine, and low-dose aspirin. Upon examination she is resting comfortably in bed with her at the bedside. She is overall feeling better. Past Medical History Past Medical History: Atrial Fibrillation, Cancer, COPD, GERD/Reflux, Hearing Disorder / Deafness, Hyperlipidemia, Osteoarthritis (OA), Pneumonia, Thyroid Disorder Additional Past Medical History / Comment(s): Constipation, bowel adhesions. Hx bowel obstruction, right breast cancer-1997 no chemo or radiation, melanoma face 2014, osteoporosis, pneumonia Aug 2016, Lymphoma receives immunotherapy q60d, active shingles History of Any Multi-Drug Resistant Organisms: MRSA Date of last positivie culture/infection: 2010? MDRO Source:: post surgical wound from bowel resection Past Surgical History: Appendectomy, Bowel Resection, Breast Surgery, Cholecystectomy, Hysterectomy Additional Past Surgical History / Comment(s): Bilateral cataracts, right mastectomy, port a cath left upper chest Past Anesthesia/Blood Transfusion Reactions: No Reported Reaction Additional Past Anesthesia/Blood Transfusion Reaction / Comment(s): no hx blood transfusion Past Psychological History: No Psychological Hx Reported Smoking Status: Former smoker Past Alcohol Use History: None Reported Past Drug Use History: None Reported - Past Family History Sister(s) Family Medical History: Cancer Additional Family Medical History / Comment(s): breast Cancer in 4 sisters Son(s) Family Medical History: Cancer Additional Family Medical History / Comment(s): LYMPHOMA, Congential heart problem. Daughter(s) Family Medical History: Cancer Additional Family Medical History / Comment(s): colon cancer Brother(s) Family Medical History: Cancer Additional Family Medical History / Comment(s): ONE BROTHER BLADDER CA, ONE WITH LUNG CA Mother Family Medical History: Cancer Additional Family Medical History / Comment(s): Stomach cancer Father Family Medical History: CVA/TIA Medications and Allergies Home Medications Medication Instructions Recorded Confirmed Type Acetaminophen [Tylenol Extra 500 mg PO TID PRN 09/26/18 06/02/20 History Strength] Aspirin [Adult Low Dose Aspirin EC] 81 mg PO DAILY 08/02/19 06/02/20 History Docusate [Colace] 100 mg PO BID PRN 08/02/19 06/02/20 History Levothyroxine Sodium [Synthroid] 100 mcg PO DAILY 08/02/19 06/02/20 History Ubidecarenone [Co Q-10] 300 mg PO DAILY 08/25/19 06/02/20 History Albuterol Inhaler [Ventolin Hfa 2 puff INHALATION RT-Q4H PRN 12/27/19 06/02/20 History Inhaler] Immune Booster (Unknown Strength) 1 tab PO DAILY 04/05/20 06/02/20 History L.acidoph,Paracasei, B.lactis 1 tab PO DAILY 04/05/20 06/02/20 History [Probiotic] Ascorbic Acid [Vitamin C] 1,000 mg PO DAILY 06/02/20 06/02/20 History Black Seed Oil 1 dose PO DAILY 06/02/20 06/02/20 History Cholecalciferol [Vitamin D3 (25 2,000 unit PO DAILY 06/02/20 06/02/20 History Mcg = 1000 Iu)] Cyanocobalamin (Vitamin B-12) 1,000 mcg PO DAILY 06/02/20 06/02/20 History [Vitamin B-12] Oil Of Oregano 1 dose PO DAILY 06/02/20 06/02/20 History [place]-3 Fatty Acids/Fish Oil [Fish 1 cap PO DAILY 06/02/20 06/02/20 History Oil 1,000 mg Softgel] traMADol HCL 50 mg PO Q6H PRN 06/02/20 06/02/20 History valACYclovir [Valtrex] 500 mg PO BID 06/02/20 06/02/20 History Allergies Allergy/AdvReac Type Severity Reaction Status Date / Time Iodinated Contrast Media Allergy Severe Anaphylaxis Verified 06/02/20 08:42 [Iodinated Contrast Media - IV Dye] atorvastatin calcium AdvReac Nausea Verified 06/02/20 08:42 [From Lipitor] celecoxib [From Celebrex] AdvReac Nausea Verified 06/02/20 08:42 cephalexin [From Keflex] AdvReac thrush Verified 06/02/20 08:42 influenza virus vaccine, AdvReac Nausea & Verified 06/02/20 08:42 specific Vomiting & [influenza virus Diarrhea,high vacc,specific] fever Physical Exam Vitals: Vital Signs Temp Pulse Resp BP Pulse Ox 06/02/20 11:56 72 18 134/78 97 06/02/20 11:25 82 18 162/82 96 06/02/20 11:16 97.9 F 73 18 148/70 96 06/02/20 11:00 100 18 145/80 98 06/02/20 08:36 66 18 199/86 98 06/02/20 07:19 97.9 F 80 16 133/55 06/02/20 05:29 77 16 148/67 66 L 06/02/20 05:20 97.4 F L 109 H 22 169/100 98 Intake and Output 06/01/20 06/02/20 06/02/20 22:59 06:59 14:59 Other: Weight 63.503 kg PHYSICAL EXAMINATION: This is a 85-year-old female in no apparent distress at the time of my examination. VITAL SIGNS: Blood pressure 134/78, heart rate 72, respirations 18, temp 97.9F. Patient is 97 % on 2 L via nasal cannula. HEENT: Head is atraumatic, normocephalic. Pupils are equal, round. Sclerae anicteric. Conjunctivae are clear. Mucous membranes of the mouth are moist. Neck is supple. There is no elevated jugular venous pressure. No carotid bruit is heard. CHEST EXAMINATION: Clear to auscultation bilaterally. No wheezes rales or rhonchi. Respirations even and nonlabored. HEART EXAMINATION: Heart regular with extrasystole, positive S1 and S2. No S3. No S4. With a systolic murmur. ABDOMEN: Soft, nontender. Bowel sounds are heard. No organomegaly noted. EXTREMITIES: 2+ peripheral pulses with no evidence of peripheral edema and no calf tenderness noted. NEUROLOGIC EXAMINATION: Patient is awake, alert and oriented x3. Results 06/02/20 05:44 06/02/20 05:44 Cardiac Enzymes 06/02/20 06/02/20 06/02/20 Range/Units 05:44 05:44 10:28 AST 60 H (14-36) U/L Troponin I <0.012 <0.012 (0.000-0.034) ng/mL Coagulation 06/02/20 Range/Units 05:44 PT 10.4 (9.0-12.0) sec APTT 21.7 L (22.0-30.0) sec CBC 06/02/20 Range/Units 05:44 WBC 7.2 (3.8-10.6) k/uL RBC 4.46 (3.80-5.40) m/uL Hgb 13.6 (11.4-16.0) gm/dL Hct 40.6 (34.0-46.0) % Plt Count 190 (150-450) k/uL Comprehensive Metabolic Panel 06/02/20 Range/Units 05:44 Sodium 135 L (137-145) mmol/L Potassium 3.9 (3.5-5.1) mmol/L Chloride 108 H (98-107) mmol/L Carbon Dioxide 22 (22-30) mmol/L BUN 16 (7-17) mg/dL Creatinine 0.94 (0.52-1.04) mg/dL Glucose 119 H (74-99) mg/dL Calcium 9.0 (8.4-10.2) mg/dL AST 60 H (14-36) U/L ALT 25 (4-34) U/L Alkaline Phosphatase 103 (38-126) U/L Total Protein 6.1 L (6.3-8.2) g/dL Albumin 3.6 (3.5-5.0) g/dL Current Medications Generic Name Dose Route Start Last Admin Trade Name Freq PRN Reason Stop Dose Admin Acetaminophen 500 mg 06/02/20 07:17 Acetaminophen Tab 500 Mg Tab PO TID PRN Pain Acetaminophen/Codeine Phosphate 2 each 06/02/20 07:27 Acetaminophen-Codeine 300-30mg Tab PO Q6H PRN Pain Albuterol Sulfate 2.5 mg 06/02/20 07:17 Albuterol Nebulized 2.5 Mg/3 Ml INHALATION DAILY PRN Dyspnea Aspirin 81 mg 06/02/20 09:00 06/02/20 09:45 Aspirin 81 Mg PO 81 mg DAILY DWAYNE Administration Docusate Sodium 100 mg 06/02/20 07:17 Docusate 100 Mg Cap PO BID PRN Constipation Isosorbide Mononitrate 30 mg 06/02/20 11:15 06/02/20 11:32 Isosorbide Mononitrate Er 30 Mg Tab.Er.24h PO 30 mg DAILY DWAYNE Administration Levothyroxine Sodium 100 mcg 06/03/20 06:30 Levothyroxine [address] [place] [address] DWAYNE Metoprolol Tartrate 25 mg 06/02/20 11:15 06/02/20 11:32 Metoprolol Tartrate 25 Mg Tab PO 25 mg BID DWAYNE Administration Nitroglycerin 0.4 mg 06/02/20 07:15 06/02/20 08:38 Nitroglycerin Sl Tabs 0.4 Mg Tab SUBLINGUAL 0.4 mg Q5M PRN Administration Chest Pain Valacyclovir HCl 1,000 mg 06/02/20 09:00 06/02/20 09:45 Valacyclovir Hcl 1,000 Mg Tablet PO 1,000 mg BID DWAYNE Administration Intake and Output 06/01/20 06/02/20 06/02/20 22:59 06:59 14:59 Other: Weight 63.503 kg 06/02/20 05:44 06/02/20 05:44 EKG Interpretations (text) Sinus rhythm with frequent PACs Assessment and Plan Assessment: #1 symptoms of chest pain with troponins negative 2 and no evidence of ischemia on EKG #2 elevated blood pressure #3 PACs #4 hypothyroidism Plan: From cardiology's perspective the patient had a 2-D echo with Doppler done in February of this year which showed a normal LV systolic function with ejection fraction of 55-60%, moderate AR, moderate MR, mild MS, moderate TR and borderline hypertension. We will not repeat an echocardiogram this admission. At this time we will treat the patient medically. Continue low-dose aspirin. We will add a nitrate and beta barbara. Continue to trend troponins. We will continue to follow the patient provide further recommendations accordingly. RECREATION COORDINATOR note has been reviewed, I agree with a documented findings and plan of care. Patient was seen and examined.
[2020-06-02] MEDS ORDERED: traMADol 50 MG TAB PO PRN (14:36)
--- NOTE | 2020-06-02 15:02 | P.HPIM ---
History of Present Illness This is a pleasant 85 resolved female with multiple medical problems as below who presents because of chest pain patient developed chest pain while going to the bathroom. Chest pain was central radiating into the back, felt like squeezing pain/pain she did not fall but she has to sit on the toilet seat but she could not get up Patient felt dizzy and short of breath with some dizziness and nausea she managed to crawl to the floor but she did not fall or hit herself. Currently she feels better. She denies smoking, alcohol or illicit drugs She has recent infection of shingles in the upper abdomen with the lesions been dried, because of recent infection with shingles her lymphoma chemotherapy was held until June 19. Patient has an appointment with her oncologist on June 07 CBC, INR, BMP and liver enzymes were unremarkable. Serial troponins are negative 3 with less than 0.012. D-dimer is negative as 0.5 Chest x-ray: No acute process by Radiologist, chronic changes only. EKG showing chronic atrial fibrillation at 90 bpm In the emergency room patient was continued with aspirin Review of Systems CONSTITUTIONAL: No fever, no malaise, no fatigue. HEENT: No recent visual problems or hearing problems. Denied any sore throat. CARDIOVASCULAR: No orthopnea, PND, no palpitations, no syncope. PULMONARY: No shortness of breath, no cough, no hemoptysis. GASTROINTESTINAL: No diarrhea, no nausea, no vomiting, no abdominal pain. Normoactive bowel sounds. NEUROLOGICAL: No headaches, no weakness, no numbness. HEMATOLOGICAL: Denies any bleeding or petechiae. GENITOURINARY: Denies any burning micturition, frequency, or urgency. MUSCULOSKELETAL/RHEUMATOLOGICAL: Denies any joint pain, swelling, or any muscle pain. ENDOCRINE: Denies any polyuria or polydipsia. Past Medical History Past Medical History: Atrial Fibrillation, Cancer, COPD, GERD/Reflux, Hearing Disorder / Deafness, Hyperlipidemia, Osteoarthritis (OA), Pneumonia, Thyroid Disorder Additional Past Medical History / Comment(s): Constipation, bowel adhesions. Hx bowel obstruction, right breast cancer-1997 no chemo or radiation, melanoma face 2014, osteoporosis, pneumonia Aug 2016, Lymphoma receives immunotherapy q60d, active shingles History of Any Multi-Drug Resistant Organisms: MRSA Date of last positivie culture/infection: 2010? MDRO Source:: post surgical wound from bowel resection Past Surgical History: Appendectomy, Bowel Resection, Breast Surgery, Cholecystectomy, Hysterectomy Additional Past Surgical History / Comment(s): Bilateral cataracts, right mastectomy, port a cath left upper chest Past Anesthesia/Blood Transfusion Reactions: No Reported Reaction Additional Past Anesthesia/Blood Transfusion Reaction / Comment(s): no hx blood transfusion Past Psychological History: No Psychological Hx Reported Smoking Status: Former smoker Past Alcohol Use History: None Reported Past Drug Use History: None Reported - Past Family History Sister(s) Family Medical History: Cancer Additional Family Medical History / Comment(s): breast Cancer in 4 sisters Son(s) Family Medical History: Cancer Additional Family Medical History / Comment(s): LYMPHOMA, Congential heart problem. Daughter(s) Family Medical History: Cancer Additional Family Medical History / Comment(s): colon cancer Brother(s) Family Medical History: Cancer Additional Family Medical History / Comment(s): ONE BROTHER BLADDER CA, ONE WITH LUNG CA Mother Family Medical History: Cancer Additional Family Medical History / Comment(s): Stomach cancer Father Family Medical History: CVA/TIA Medications and Allergies Home Medications Medication Instructions Recorded Confirmed Type Acetaminophen [Tylenol Extra 500 mg PO TID PRN 09/26/18 06/02/20 History Strength] Aspirin [Adult Low Dose Aspirin EC] 81 mg PO DAILY 08/02/19 06/02/20 History Docusate [Colace] 100 mg PO BID PRN 08/02/19 06/02/20 History Levothyroxine Sodium [Synthroid] 100 mcg PO DAILY 08/02/19 06/02/20 History Ubidecarenone [Co Q-10] 300 mg PO DAILY 08/25/19 06/02/20 History Albuterol Inhaler [Ventolin Hfa 2 puff INHALATION RT-Q4H PRN 12/27/19 06/02/20 History Inhaler] Immune Booster (Unknown Strength) 1 tab PO DAILY 04/05/20 06/02/20 History L.acidoph,Paracasei, B.lactis 1 tab PO DAILY 04/05/20 06/02/20 History [Probiotic] Ascorbic Acid [Vitamin C] 1,000 mg PO DAILY 06/02/20 06/02/20 History Black Seed Oil 1 dose PO DAILY 06/02/20 06/02/20 History Cholecalciferol [Vitamin D3 (25 2,000 unit PO DAILY 06/02/20 06/02/20 History Mcg = 1000 Iu)] Cyanocobalamin (Vitamin B-12) 1,000 mcg PO DAILY 06/02/20 06/02/20 History [Vitamin B-12] Oil Of Oregano 1 dose PO DAILY 06/02/20 06/02/20 History [place]-3 Fatty Acids/Fish Oil [Fish 1 cap PO DAILY 06/02/20 06/02/20 History Oil 1,000 mg Softgel] traMADol HCL 50 mg PO Q6H PRN 06/02/20 06/02/20 History valACYclovir [Valtrex] 500 mg PO BID 06/02/20 06/02/20 History Allergies Allergy/AdvReac Type Severity Reaction Status Date / Time Iodinated Contrast Media Allergy Severe Anaphylaxis Verified 06/02/20 08:42 [Iodinated Contrast Media - IV Dye] atorvastatin calcium AdvReac Nausea Verified 06/02/20 08:42 [From Lipitor] celecoxib [From Celebrex] AdvReac Nausea Verified 06/02/20 08:42 cephalexin [From Keflex] AdvReac thrush Verified 06/02/20 08:42 influenza virus vaccine, AdvReac Nausea & Verified 06/02/20 08:42 specific Vomiting & [influenza virus Diarrhea,high vacc,specific] fever Physical Exam Vitals: Vital Signs Temp Pulse Resp BP Pulse Ox 06/02/20 13:27 60 18 110/61 96 06/02/20 11:56 72 18 134/78 97 06/02/20 11:25 82 18 162/82 96 06/02/20 11:16 97.9 F 73 18 148/70 96 06/02/20 11:00 100 18 145/80 98 06/02/20 08:36 66 18 199/86 98 06/02/20 07:19 97.9 F 80 16 133/55 06/02/20 05:29 77 16 148/67 66 L 06/02/20 05:20 97.4 F L 109 H 22 169/100 98 Intake and Output 06/01/20 06/02/20 06/02/20 22:59 06:59 14:59 Other: Weight 63.503 kg GENERAL: The patient is alert and oriented x3, not in any acute distress. Well developed, well nourished. HEENT: Pupils are round and equally reacting to light. EOMI. No scleral icterus. No conjunctival pallor. Normocephalic, atraumatic. No pharyngeal erythema. No thyromegaly. CARDIOVASCULAR: S1 and S2 present. No murmurs, rubs, or gallops. PULMONARY: Chest is clear to auscultation, no wheezing or crackles. -ABDOMEN: Soft, nontender, nondistended, normoactive bowel sounds. No palpable organomegaly. Dried vesicles in the right upper abdomen to the dermatome MUSCULOSKELETAL: No joint swelling or deformity. EXTREMITIES: No cyanosis, clubbing, or pedal edema. NEUROLOGICAL: Gross neurological examination did not reveal any focal deficits. SKIN: No rashes. No petechiae Results CBC & Chem 7: 06/02/20 05:44 06/02/20 05:44 Labs: Abnormal Lab Results - Last 24 Hours (Table) 06/02/20 06/02/20 Range/Units 05:44 05:44 APTT 21.7 L (22.0-30.0) sec Sodium 135 L (137-145) mmol/L Chloride 108 H (98-107) mmol/L Glucose 119 H (74-99) mg/dL AST 60 H (14-36) U/L Total Protein 6.1 L (6.3-8.2) g/dL Assessment and Plan Assessment: Chest pain with negative d-dimer. Rule out cardiac causes Shingles with healing lesion in right upper abdomen dermatome Lymphoma, she supposed to get chemotherapy but postponed until June 19 Chronic atrial fibrillation, rate controlled COPD, normoactive tissue GERD Hearing difficulty Hyperlipidemia Osteoarthritis History of breast cancer in 1997 Plan: This is a pleasant 85 years old female who presents with chest pain. Cardiology on the case, old echocardiogram was reviewed showing valvular heart disease, no need to repeat echo for now. 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 Resume her home dose of aspirin. Labs and medication were reviewed.. Continue same treatment. Continue with symptomatic treatment. Resume home medication. Monitor lytes and vitals. DVT and GI prophylaxis. Further recommendations depends on the clinical course of t he patient DVT prophylaxis: Subcutaneous heparin GI Prophylaxis: Pepcid PT/OT: Pending Prognosis is guarded
[2020-06-02] MEDS: Acetaminophen-Codeine 300-30mg TAB PO PRN ×2 (16:35→22:14)
[2020-06-03] MEDS: Acetaminophen-Codeine 300-30mg TAB PO PRN ×2 (04:45→09:02)
[2020-06-03 06:20] VITALS: RESP 18
[2020-06-03] MEDS ORDERED: LEVOTHYROXINE 100 MCG TAB PO SCH (06:30)
[2020-06-03 07:35] LABS: Cholesterol 227 mg/dL (<200); HDL Cholesterol 53 mg/dL (40-60); LDL Cholesterol,Calculated 131 mg/dL (0-99); Triglycerides 214 mg/dL (<150)
[2020-06-03] MEDS: ASPIRIN 81 MG PO SCH (08:57)
[2020-06-03] MEDS: ISOSORBIDE MONONITRATE ER 30 MG TAB.ER.24H PO SCH (08:58)
[2020-06-03] MEDS: valACYclovir HCL 1,000 MG TABLET PO SCH (08:58)
[2020-06-03] MEDS: METOPROLOL TARTRATE 25 MG TAB PO SCH (08:58)
[2020-06-03] MEDS ORDERED: CHOLECALCIFEROL 1,000 UNIT TAB PO SCH (09:00)
[2020-06-03] MEDS ORDERED: ASCORBIC ACID 500 MG TAB PO SCH (09:00)
[2020-06-03 09:16] VITALS: BP 151/70; TEMP 96.8
--- NOTE | 2020-06-03 10:35 | PN ---
PROGRESS NOTE Mrs. Dudley is an 85-year-old female who presented with symptoms of left-sided chest discomfort as well as discomfort related to her recent herpes zoster. Her chest discomfort resolved. She is complaining of some discomfort at the site of her shingles. She denies any dizziness or palpitation. She denies any nausea. Her breathing is stable. She continues to be at this time on aspirin 81 mg daily, isosorbide mononitrate 30 mg daily, metoprolol tartrate 25 mg twice a day. PHYSICAL EXAMINATION: Blood pressure running in the 120s with a heart rate in 60s to 70s. LUNGS: Clear. Heart regular rate and rhythm S1, S2. No S3. No rub. ABDOMEN: Soft, nontender. EXTREMITIES: No edema. IMPRESSION: 1. Chest discomfort, atypical features for ischemic heart disease probably noncardiac. 2. Hypertension under better control. 3. Recent herpes zoster infection. RECOMMENDATIONS: From the cardiac standpoint, she is stable. I would expect she should be able to be discharged home soon from the cardiac standpoint. Will see her on an as-needed basis. Please feel free to call us for any questions. MMODL / IJN: [id number] /
[2020-06-03] MEDS ORDERED: GABAPENTIN 300 MG CAP PO SCH (13:00)
[2020-06-03 13:45] VITALS: PULSE 70
== END 2020-06-03 15:48 | disposition home or self-care (01) ==
LOC: EC 05:18 → 1SOBS 07:15
PROVIDERS: ADMIT Hospitalist; ATTEND Hospitalist
DX: R07.89 Other chest pain (principal); B02.9 Zoster without complications; I11.9 Hypertensive heart disease without heart failure; C85.90 Non-Hodgkin lymphoma, unspecified, unspecified site; I49.1 Atrial premature depolarization; I08.3 Combined rheumatic disorders of mitral, aortic and tricuspid valves; I48.20 Chronic atrial fibrillation, unspecified; J44.9 Chronic obstructive pulmonary disease, unspecified; R61 Generalized hyperhidrosis; K21.9 Gastro-esophageal reflux disease without esophagitis; E78.5 Hyperlipidemia, unspecified; M19.90 Unspecified osteoarthritis, unspecified site; E03.9 Hypothyroidism, unspecified; K59.00 Constipation, unspecified; H91.90 Unspecified hearing loss, unspecified ear; M81.0 Age-related osteoporosis without current pathological fracture; Z79.82 Long term (current) use of aspirin; Z79.890 Hormone replacement therapy; Z79.899 Other long term (current) drug therapy; Z88.7 Allergy status to serum and vaccine; Z88.8 Allergy status to other drugs, medicaments and biological substances; Z88.1 Allergy status to other antibiotic agents; Z91.041 Radiographic dye allergy status; Z85.3 Personal history of malignant neoplasm of breast; Z87.01 Personal history of pneumonia (recurrent); Z85.820 Personal history of malignant melanoma of skin; Z86.14 Personal history of Methicillin resistant Staphylococcus aureus infection; Z90.49 Acquired absence of other specified parts of digestive tract; Z90.11 Acquired absence of right breast and nipple; Z90.710 Acquired absence of both cervix and uterus; Z87.19 Personal history of other diseases of the digestive system; Z98.42 Cataract extraction status, left eye; Z98.41 Cataract extraction status, right eye; Z87.891 Personal history of nicotine dependence; Z80.3 Family history of malignant neoplasm of breast; Z80.7 Family history of other malignant neoplasms of lymphoid, hematopoietic and related tissues; Z80.0 Family history of malignant neoplasm of digestive organs; Z80.1 Family history of malignant neoplasm of trachea, bronchus and lung; Z80.52 Family history of malignant neoplasm of bladder; Z82.3 Family history of stroke; Z82.79 Family history of other congenital malformations, deformations and chromosomal abnormalities
CPT/HCPCS: 93005 ×2; 99285; 36415; 94640; 85379; 80061; 80053; 83735; 84484; 85025; 85610; 85730; 71046; G0378 ×2

== ENCOUNTER 2020-07-05 13:44 | Emergency (ER) | payer MEDICARE, OTHER ==
[2020-07-05 14:03] VITALS: TEMP 98.3
[2020-07-05] MEDS ORDERED: IPRATROPIUM-ALBUTEROL 3 ML NEB INHALATION STA (14:19)
--- NOTE | 2020-07-05 14:24 | ED ---
General Adult HPI - General Chief complaint: Weakness Stated complaint: Weakness/SOB/Headache Time Seen by Provider: 07/05/20 14:05 Source: patient, RN notes reviewed, old records reviewed Mode of arrival: ambulatory Limitations: no limitations - History of Present Illness Initial comments: 85-year-old female patient ED for evaluation weakness shortness of breath headache. Patient reports that symptoms have been ongoing for the last 2 days. She reports that when she gets overexerted herself she feels short of breath that she has had a mild generalized headache since this morning. Patient has a history of COPD. She denies any chest pain or any focal area of pain. She denies any coughing or any fevers. Systemic: Pt denies fatigue, fever/chills, rash. Pt denies weakness, night sweats, weight loss. Neuro: Pt denies visual disturbances, syncope or pre-syncope. HEENT: Pt denies ocular discharge or irritation, otalgia, rhinorrhea, pharyngitis or notable lymphadenopathy. Cardiopulmonary: Pt denies chest pain, heart palpitations, dyspnea on exertion. Abdominal/GI: Pt denies abdominal pain, n/v/d. : Pt denies dysuria, burning w/ urination, frequency/urgency. Denies new onset urinary or bowel incontinence. MSK: Pt denies myalgia, loss of strength or function in extremities. Neuro: Pt denies new onset weakness, paresthesias. - Related Data Home Medications Medication Instructions Recorded Confirmed Acetaminophen [Tylenol Extra 500 mg PO TID PRN 09/26/18 06/02/20 Strength] Aspirin [Adult Low Dose Aspirin EC] 81 mg PO DAILY 08/02/19 06/02/20 Docusate [Colace] 100 mg PO BID PRN 08/02/19 06/02/20 Levothyroxine Sodium [Synthroid] 100 mcg PO DAILY 08/02/19 06/02/20 Ubidecarenone [Co Q-10] 300 mg PO DAILY 08/25/19 06/02/20 Albuterol Inhaler [Ventolin Hfa 2 puff INHALATION RT-Q4H PRN 12/27/19 06/02/20 Inhaler] Immune Booster (Unknown Strength) 1 tab PO DAILY 04/05/20 06/02/20 L.acidoph,Paracasei, B.lactis 1 tab PO DAILY 04/05/20 06/02/20 [Probiotic] Ascorbic Acid [Vitamin C] 1,000 mg PO DAILY 06/02/20 06/02/20 Black Seed Oil 1 dose PO DAILY 06/02/20 06/02/20 Cholecalciferol [Vitamin D3 (25 2,000 unit PO DAILY 06/02/20 06/02/20 Mcg = 1000 Iu)] Cyanocobalamin (Vitamin B-12) 1,000 mcg PO DAILY 06/02/20 06/02/20 [Vitamin B-12] Oil Of Oregano 1 dose PO DAILY 06/02/20 06/02/20 [place]-3 Fatty Acids/Fish Oil [Fish 1 cap PO DAILY 06/02/20 06/02/20 Oil 1,000 mg Softgel] traMADol HCL 50 mg PO Q6H PRN 06/02/20 06/02/20 valACYclovir [Valtrex] 500 mg PO BID 06/02/20 06/02/20 Previous Rx's Medication Instructions Recorded Gabapentin [Neurontin] 300 mg PO TID #45 cap 06/03/20 Isosorbide Mononitrate ER [Imdur] 30 mg PO DAILY #30 tab.er.24h 06/03/20 Metoprolol Tartrate [Lopressor] 25 mg PO BID #60 tab 06/03/20 Nitroglycerin Sl Tabs [Nitrostat] 0.4 mg SUBLINGUAL Q5M PRN #20 tab 06/03/20 Albuterol Nebulized [Ventolin 2.5 mg INHALATION Q4H PRN 10 Days 07/05/20 Nebulized] #30 nebu Cephalexin [Keflex] 500 mg PO Q6HR 10 Days #40 cap 07/05/20 Ipratropium-Albuterol Nebulize 1 neb INHALATION Q6HR PRN 40 Days 07/05/20 [Duoneb 0.5 mg-3 mg/3 ml Soln] #30 neb Allergies Allergy/AdvReac Type Severity Reaction Status Date / Time Iodinated Contrast Media Allergy Severe Anaphylaxis Verified 07/05/20 14:03 [Iodinated Contrast Media - IV Dye] atorvastatin calcium AdvReac Nausea Verified 07/05/20 14:03 [From Lipitor] celecoxib [From Celebrex] AdvReac Nausea Verified 07/05/20 14:03 cephalexin [From Keflex] AdvReac thrush Verified 07/05/20 14:03 influenza virus vaccine, AdvReac Nausea & Verified 07/05/20 14:03 specific Vomiting & [influenza virus Diarrhea,high vacc,specific] fever Review of Systems ROS Statement: Those systems with pertinent positive or pertinent negative responses have been documented in the HPI. ROS Other: All systems not noted in ROS Statement are negative. Past Medical History Past Medical History: Atrial Fibrillation, Cancer, COPD, GERD/Reflux, Hearing Disorder / Deafness, Hyperlipidemia, Osteoarthritis (OA), Pneumonia, Thyroid Disorder Additional Past Medical History / Comment(s): Constipation, bowel adhesions. Hx bowel obstruction, right breast cancer-1997 no chemo or radiation, melanoma face 2014, osteoporosis, pneumonia Aug 2016, Lymphoma receives immunotherapy q60d, active shingles History of Any Multi-Drug Resistant Organisms: MRSA Date of last positivie culture/infection: 2010? MDRO Source:: post surgical wound from bowel resection Past Surgical History: Appendectomy, Bowel Resection, Breast Surgery, Cholecystectomy, Hysterectomy Additional Past Surgical History / Comment(s): Bilateral cataracts, right mastectomy, port a cath left upper chest Past Anesthesia/Blood Transfusion Reactions: No Reported Reaction Additional Past Anesthesia/Blood Transfusion Reaction / Comment(s): no hx blood transfusion Past Psychological History: No Psychological Hx Reported Smoking Status: Former smoker Past Alcohol Use History: None Reported Past Drug Use History: None Reported - Past Family History Sister(s) Family Medical History: Cancer Additional Family Medical History / Comment(s): breast Cancer in 4 sisters Son(s) Family Medical History: Cancer Additional Family Medical History / Comment(s): LYMPHOMA, Congential heart problem. Daughter(s) Family Medical History: Cancer Additional Family Medical History / Comment(s): colon cancer Brother(s) Family Medical History: Cancer Additional Family Medical History / Comment(s): ONE BROTHER BLADDER CA, ONE WITH LUNG CA Mother Family Medical History: Cancer Additional Family Medical History / Comment(s): Stomach cancer Father Family Medical History: CVA/TIA General Exam - General Exam Comments Initial Comments: Constitutional: NAD, AOX3, Pt has pleasant affect. HEENT: NC/AT, trachea midline, neck supple, no lymphadenopathy. Posterior pharynx non erythematous, without exudates. External ears appear normal, without discharge. Mucous membranes moist. Eyes PERRLA, EOM intact. There is no scleral icterus. No pallor noted. Cardiopulmonary: RRR, no murmurs, rubs or gallops, no JVD noted. Mild wheezing noted posterior lung michelle.. No peripheral edema. Abdominal exam: Abdomen soft and non-distended. Abdomen non-tender to palpation in all 4 quadrants. Bowel sounds active in LLQ. No hepatosplenomegaly. No ecchymosis Neuro: CN II-XII intact. No nuchal rigidity. No raccon eyes, no bowie sign, no hemotympanum. No cervical spinal tenderness. MSK: No posterior calf tenderness bilaterally, homans sign negative bilaterally. Posterior tibialis and radial pulse +2 bilaterally. Sensation intact in upper and lower extremities. Full active ROM in upper and lower extremities, 5/5 stre gnth. Limitations: no limitations Course Vital Signs 07/05/20 07/05/20 07/05/20 13:59 15:00 15:13 Temperature 98.3 F Pulse Rate 82 76 73 Respiratory 20 22 Rate Blood Pressure 125/85 126/65 O2 Sat by Pulse 97 98 Oximetry 07/05/20 07/05/20 07/05/20 15:18 15:30 16:00 Temperature Pulse Rate 76 60 76 Respiratory 22 20 Rate Blood Pressure 125/88 126/53 O2 Sat by Pulse 100 98 Oximetry Medical Decision Making - Medical Decision Making 85-year-old female patient ED for evaluation of multiple complaints. She reports that she has had a mild frontal headache. Reports that she is feeling generally weak and she also had mild shortness of breath. No chest pain. Physical exam displayed intact neurologic exam. Mild wheezing. Vital signs are stable, afebrile. Of investigations significantly urinary tract infection. EKG is nonischemic. In CT and chest x-ray did not display any acute process. Patient is feeling much improved with analgesia, breathing treatment. Shortness of breath is resolved. She'll be placed on Keflex for urinary tract infection. She reports she has had no difficulty taking this medication the past. She also represcribed breathing treatments will follow-up with her primary care provider and return if any worsening symptoms. Case dsicussed with Dr. Yoo. - Lab Data Result diagrams: 07/05/20 14:26 07/05/20 14:26 Lab Results 12/31/20 12/31/20 12/31/20 Range/Units 14:18 14:18 14:18 WBC (3.8-10.6) k/uL RBC (3.80-5.40) m/uL Hgb (11.4-16.0) gm/dL Hct (34.0-46.0) % MCV (80.0-100.0) fL MCH (25.0-35.0) pg MCHC (31.0-37.0) g/dL RDW (11.5-15.5) % Plt Count (150-450) k/uL MPV Neutrophils % % Lymphocytes % % Monocytes % % Eosinophils % % Basophils % % Neutrophils # (1.3-7.7) k/uL Lymphocytes # (1.0-4.8) k/uL Monocytes # (0-1.0) k/uL Eosinophils # (0-0.7) k/uL Basophils # (0-0.2) k/uL PT (9.0-12.0) sec INR (<1.2) APTT (22.0-30.0) sec D-Dimer (<0.60) mg/L FEU Sodium (137-145) mmol/L Potassium (3.5-5.1) mmol/L Chloride (98-107) mmol/L Carbon Dioxide (22-30) mmol/L Anion Gap mmol/L BUN (7-17) mg/dL Creatinine (0.52-1.04) mg/dL Est GFR (CKD-EPI)AfAm (>60 ml/min/1.73 sqM) Est GFR (CKD-EPI)NonAf (>60 ml/min/1.73 sqM) Glucose (74-99) mg/dL Plasma Lactic Acid Jefferson (0.7-2.0) mmol/L Calcium (8.4-10.2) mg/dL Phosphorus (2.5-4.5) mg/dL Magnesium (1.6-2.3) mg/dL Total Bilirubin (0.2-1.3) mg/dL AST (14-36) U/L ALT (4-34) U/L Alkaline Phosphatase (38-126) U/L Troponin I (0.000-0.034) ng/mL NT-Pro-B Natriuret Pep 831 pg/mL Total Protein (6.3-8.2) g/dL Albumin (3.5-5.0) g/dL Urine Color Yellow Urine Appearance Cloudy H (Clear) Urine pH 6.5 (5.0-8.0) Ur Specific Hunter 1.014 (1.001-1.035) Urine Protein Negative (Negative) Urine Glucose (UA) Negative (Negative) Urine Ketones Negative (Negative) Urine Blood Negative (Negative) Urine Nitrite Negative (Negative) Urine Bilirubin Negative (Negative) Urine Urobilinogen <2.0 (<2.0) mg/dL Ur Leukocyte Esterase Large H (Negative) Urine RBC 2 (0-5) /hpf Urine WBC 140 H (0-5) /hpf Ur Squamous Epith Cells 1 (0-4) /hpf Amorphous Sediment Rare H (None) /hpf Urine Bacteria Rare H (None) /hpf Coronavirus (PCR) Not Detected (Not Detectd) 07/05/20 07/05/20 07/05/20 Range/Units 14:26 14:26 14:26 WBC 8.8 (3.8-10.6) k/uL RBC 4.99 (3.80-5.40) m/uL Hgb 15.7 (11.4-16.0) gm/dL Hct 45.6 (34.0-46.0) % MCV 91.3 (80.0-100.0) fL MCH 31.4 (25.0-35.0) pg MCHC 34.4 (31.0-37.0) g/dL RDW 12.4 (11.5-15.5) % Plt Count 198 (150-450) k/uL MPV 7.1 Neutrophils % 74 % Lymphocytes % 15 % Monocytes % 6 % Eosinophils % 3 % Basophils % 0 % Neutrophils # 6.6 (1.3-7.7) k/uL Lymphocytes # 1.3 (1.0-4.8) k/uL Monocytes # 0.5 (0-1.0) k/uL Eosinophils # 0.3 (0-0.7) k/uL Basophils # 0.0 (0-0.2) k/uL PT 10.6 (9.0-12.0) sec INR 1.0 (<1.2) APTT 22.8 (22.0-30.0) sec D-Dimer 0.49 (<0.60) mg/L FEU Sodium 135 L (137-145) mmol/L Potassium 4.1 (3.5-5.1) mmol/L Chloride 108 H (98-107) mmol/L Carbon Dioxide 20 L (22-30) mmol/L Anion Gap 7 mmol/L BUN 15 (7-17) mg/dL Creatinine 0.92 (0.52-1.04) mg/dL Est GFR (CKD-EPI)AfAm 66 (>60 ml/min/1.73 sqM) Est GFR (CKD-EPI)NonAf 57 (>60 ml/min/1.73 sqM) Glucose 105 H (74-99) mg/dL Plasma Lactic Acid Jefferson (0.7-2.0) mmol/L Calcium 9.7 (8.4-10.2) mg/dL Phosphorus 2.6 (2.5-4.5) mg/dL Magnesium 1.7 (1.6-2.3) mg/dL Total Bilirubin 0.6 (0.2-1.3) mg/dL AST 27 (14-36) U/L ALT 18 (4-34) U/L Alkaline Phosphatase 79 (38-126) U/L Troponin I (0.000-0.034) ng/mL NT-Pro-B Natriuret Pep pg/mL Total Protein 6.7 (6.3-8.2) g/dL Albumin 4.0 (3.5-5.0) g/dL Urine Color Urine Appearance (Clear) Urine pH (5.0-8.0) Ur Specific Hunter (1.001-1.035) Urine Protein (Negative) Urine Glucose (UA) (Negative) Urine Ketones (Negative) Urine Blood (Negative) Urine Nitrite (Negative) Urine Bilirubin (Negative) Urine Urobilinogen (<2.0) mg/dL Ur Leukocyte Esterase (Negative) Urine RBC (0-5) /hpf Urine WBC (0-5) /hpf Ur Squamous Epith Cells (0-4) /hpf Amorphous Sediment (None) /hpf Urine Bacteria (None) /hpf Coronavirus (PCR) (Not Detectd) 07/05/20 07/05/20 Range/Units 14:26 14:26 WBC (3.8-10.6) k/uL RBC (3.80-5.40) m/uL Hgb (11.4-16.0) gm/dL Hct (34.0-46.0) % MCV (80.0-100.0) fL MCH (25.0-35.0) pg MCHC (31.0-37.0) g/dL RDW (11.5-15.5) % Plt Count (150-450) k/uL MPV Neutrophils % % Lymphocytes % % Monocytes % % Eosinophils % % Basophils % % Neutrophils # (1.3-7.7) k/uL Lymphocytes # (1.0-4.8) k/uL Monocytes # (0-1.0) k/uL Eosinophils # (0-0.7) k/uL Basophils # (0-0.2) k/uL PT (9.0-12.0) sec INR (<1.2) APTT (22.0-30.0) sec D-Dimer (<0.60) mg/L FEU Sodium (137-145) mmol/L Potassium (3.5-5.1) mmol/L Chloride (98-107) mmol/L Carbon Dioxide (22-30) mmol/L Anion Gap mmol/L BUN (7-17) mg/dL Creatinine (0.52-1.04) mg/dL Est GFR (CKD-EPI)AfAm (>60 ml/min/1.73 sqM) Est GFR (CKD-EPI)NonAf (>60 ml/min/1.73 sqM) Glucose (74-99) mg/dL Plasma Lactic Acid Jefferson 2.0 (0.7-2.0) mmol/L Calcium (8.4-10.2) mg/dL Phosphorus (2.5-4.5) mg/dL Magnesium (1.6-2.3) mg/dL Total Bilirubin (0.2-1.3) mg/dL AST (14-36) U/L ALT (4-34) U/L Alkaline Phosphatase (38-126) U/L Troponin I <0.012 (0.000-0.034) ng/mL NT-Pro-B Natriuret Pep pg/mL Total Protein (6.3-8.2) g/dL Albumin (3.5-5.0) g/dL Urine Color Urine Appearance (Clear) Urine pH (5.0-8.0) Ur Specific Hunter (1.001-1.035) Urine Protein (Negative) Urine Glucose (UA) (Negative) Urine Ketones (Negative) Urine Blood (Negative) Urine Nitrite (Negative) Urine Bilirubin (Negative) Urine Urobilinogen (<2.0) mg/dL Ur Leukocyte Esterase (Negative) Urine RBC (0-5) /hpf Urine WBC (0-5) /hpf Ur Squamous Epith Cells (0-4) /hpf Amorphous Sediment (None) /hpf Urine Bacteria (None) /hpf Coronavirus (PCR) (Not Detectd) - EKG Data -: EKG Interpreted by Me (and Dr. Yoo ) EKG Comments: Ventricular rate 80, WV interval 162, QRS 80,QT/QTC 370/426. sinus rhythm with premature atrial complex. Left anterior fascicular block. No concern for acute ischemia. Disposition Clinical Impression: UTI (urinary tract infection), Headache, COPD (chronic obstructive pulmonary disease) Disposition: HOME SELF-CARE Condition: Stable Instructions (If sedation given, give patient instructions): COPD (Chronic Obstructive Pulmonary Disease) (ED), Urinary Tract Infection in Women (ED) Additional Instructions: Follow up with PCP tomorrow. Take antibiotics as directed. Use breathing treatments as needed. Return to ED with any worsening symptoms. Prescriptions: Ipratropium-Albuterol Nebulize [Duoneb 0.5 mg-3 mg/3 ml Soln] 1 neb INHALATION Q6HR PRN 40 Days #30 neb PRN Reason: wheezing Cephalexin [Keflex] 500 mg PO Q6HR 10 Days #40 cap Albuterol Nebulized [Ventolin Nebulized] 2.5 mg INHALATION Q4H PRN 10 Days #30 nebu PRN Reason: Cough Is patient prescribed a controlled substance at d/c from ED?: No Referrals: Rob Arias MD [Primary Care Provider] - 1-2 days
[2020-07-05] MEDS ORDERED: HYDROcodone/APAP 5-325MG 1 EACH TAB PO STA (14:35)
[2020-07-05 14:40] LABS: Basophils % (A) 0 %; Eosinophils # (A) 0.3 k/uL (0-0.7); Eosinophils % (A) 3 %; HCT 45.6 % (34.0-46.0); HGB 15.7 gm/dL (11.4-16.0); Lymphocytes # (A) 1.3 k/uL (1.0-4.8); Lymphocytes % (A) 15 %; MCH 31.4 pg (25.0-35.0); MCHC 34.4 g/dL (31.0-37.0); MCV 91.3 fL (80.0-100.0); Mean Platelet Volume 7.1; Monocytes # (A) 0.5 k/uL (0-1.0); Monocytes % (A) 6 %; Neutrophils # (A) 6.6 k/uL (1.3-7.7); Neutrophils % (A) 74 %; Platelet Count 198 k/uL (150-450); RBC 4.99 m/uL (3.80-5.40); RDW 12.4 % (11.5-15.5); WBC 8.8 k/uL (3.8-10.6)
[2020-07-05 14:53] LABS: Calcium 9.7 mg/dL (8.4-10.2); Magnesium 1.7 mg/dL (1.6-2.3); Phosphorus 2.6 mg/dL (2.5-4.5); Potassium 4.1 mmol/L (3.5-5.1); Total Bilirubin 0.6 mg/dL (0.2-1.3); Total Protein 6.7 g/dL (6.3-8.2)
[2020-07-05 14:58] LABS: D-Dimer 0.49 mg/L FEU (<0.60); Partial Thromboplastin Time 22.8 sec (22.0-30.0); Prothrombin Time 10.6 sec (9.0-12.0)
--- NOTE | 2020-07-05 15:08 | XR ---
EXAMINATION TYPE: XR chest 2V DATE OF EXAM: 07/05/2020 COMPARISON: 06/02/2020 HISTORY: 85-year-old female with weakness TECHNIQUE: AP and lateral views FINDINGS: Heart upper limits of normal in size. Aorta and pulmonary vasculature within normal limits. Surgical clips in the right axilla. Mild interstitial prominence is unchanged. No consolidation or pleural eff usion. Left anterior chest wall injection port with subclavian access and catheter tip at the lower S VC level. Severe degenerative disc disease near the thoracic lumbar junction with focal kyphosis here. IMPRESSION: Chronic changes without acute process seen. Borderline heart size.
--- NOTE | 2020-07-05 15:12 | CT ---
EXAMINATION TYPE: CT brain wo con DATE OF EXAM: 07/05/2020 COMPARISON: 04/05/2020 HISTORY: 85-year-old female Weakness, superior headache TECHNIQUE: Examination was done in axial plane without intravenous contrast. Coronal and sagittal r econstructions performed. CT DLP: 1066.4 mGycm Automated exposure control for dose reduction was used. FINDINGS: There is no evidence of acute intracranial hemorrhage, acute ischemic changes, mass, mass-effect, or extra-axial fluid collection. There is no effacement of cerebral sulci or basal subarachnoid cister ns. There is no hydrocephalus. There is no midline shift. Rivero-white matter distinction is preserv ed. Focal subcortical hypodensity anterior frontal lobe is unchanged. Additional minimal scattered patchy subcortical white matter hypodensities. Paranasal sinuses and mastoid air cells are pneumatized. Orbits and globes are intact. IMPRESSION: Mild patchy burden of chronic small vessel ischemic disease. No acute intracranial abnormality seen.
[2020-07-05 15:53] LABS: Amorphous Sediment,Urine Rare /hpf; Appearance,Urine Cloudy (Clear); Bacteria,Urine Rare /hpf; Bilirubin,Urine Negative (Negative); Blood,Urine Negative (Negative); Color,Urine Yellow; Glucose,Urine (UA) Negative (Negative); Ketones,Urine Negative (Negative); Leukocyte Esterase,Urine Large (Negative); Nitrite,Urine Negative (Negative); PH, Urine 6.5 (5.0-8.0); Protein,Urine Negative (Negative); RBC,Urine 2 /hpf (0-5); Specific Gravity,Urine 1.014 (1.001-1.035); Squamous Epithelial Cell,Urine 1 /hpf (0-4); Urobilinogen,Urine <2.0 mg/dL (<2.0); WBC,Urine 140 /hpf (0-5)
[2020-07-05] MEDS ORDERED: diphenhydrAMINE 50 MG/ML 1 ML VIAL IVP STA (16:21)
[2020-07-05 16:53] VITALS: BP 128/61; PULSE 68; RESP 24
== END 2020-07-05 17:33 | disposition home or self-care (01) ==
LOC: EC 13:44
DX: N39.0 Urinary tract infection, site not specified (principal); J44.9 Chronic obstructive pulmonary disease, unspecified; R51.9 Headache, unspecified; H91.90 Unspecified hearing loss, unspecified ear; E78.5 Hyperlipidemia, unspecified; E07.9 Disorder of thyroid, unspecified; M19.90 Unspecified osteoarthritis, unspecified site; Z20.828 Contact with and (suspected) exposure to other viral communicable diseases; Z79.899 Other long term (current) drug therapy; Z79.890 Hormone replacement therapy; Z79.82 Long term (current) use of aspirin; Z91.041 Radiographic dye allergy status; Z88.8 Allergy status to other drugs, medicaments and biological substances; Z88.1 Allergy status to other antibiotic agents; Z88.7 Allergy status to serum and vaccine; Z88.6 Allergy status to analgesic agent; Z86.14 Personal history of Methicillin resistant Staphylococcus aureus infection; Z85.72 Personal history of non-Hodgkin lymphomas; Z85.820 Personal history of malignant melanoma of skin; Z85.3 Personal history of malignant neoplasm of breast; Z87.891 Personal history of nicotine dependence
CPT/HCPCS: 36415; 94640; 93005; 85379; 83880; 80053; 83605; 83735; 84100; 84484; 85025; 85610; 85730; 81001; 87086; 87635; 71046; 70450; 99285; 96365; 96375; J1200; J0696

== ENCOUNTER → 2020-09-21 | Outpatient (CLI) | payer MEDICARE, OTHER ==
--- NOTE | 2020-09-25 06:04 | PE ---
EXAMINATION TYPE: PET CT fusion skull to thigh DATE OF EXAM: 09/21/2020 COMPARISON: Prior PET/CT May 12, 2020 and older studies HISTORY: Non-Hodgkin Lymphoma progress study. Currently on chemotherapy treatment through September 03. H istory of right-sided breast cancer 1999. TECHNIQUE: Following the intravenous administration of 13.01 mCi of F-18 FDG, whole body images are performed from the skull base to the midthigh. Images are reviewed on the computer in the coronal, a xial, and sagittal planes. Reconstructed rotating images are created on independent workstation and reviewed on the computer. A localization and attenuation correction CT is performed in conjunction with the PET scan. Blood glucose level equals 93 SCAN: Subsequent Scan FINDINGS: Mean SUV mediastinum: 0.74 Mean SUV liver: 2.12 SKULL BASE AND NECK: No new areas of suspicious hypermetabolic uptake. CHEST, MEDIASTINUM, AND HILAR REGION: Fairly stable in size hypermetabolic posterior left upper lobe nodule currently measuring 2.3 x 2.1 cm axial image 63 with max SUV 7.53 current study versus 6.75 on prior study. No new suspicious hypermetabolic nodules or lymph nodes. ABDOMEN AND PELVIS: No new areas of abnormal hypermetabolic uptake. Normal excretion. OSSEOUS STRUCTURES: No new areas of abnormal hypermetabolic uptake. OTHER CT: There is stable left subclavian Mediport catheter terminating in SVC. Scleral calcification right globe is redemonstrated. Cardiomegaly with tiny pericardial effusion is fairly stable versus p rior. Coronary artery calcifications redemonstrated along with calcifications within the aortic and m itral valves. [id number] biapical pleural/parenchymal scarring. Surgical clips right axilla wit h absent right breast noted. Scar tissue left axilla. Cholecystectomy clips are redemonstrated. There is moderate calcified plaque of aorta extending into iliac branch vessels. There is low lying slightly prominent cecum into the right pelvis. Uterus is no сергей surgically absent. There is small fat- containing umbilical hernia redemonstrated. Slight thicken ing to both adrenal glands without hypermetabolic uptake is redemonstrated and stable consistent with benign lipid rich hyperplasia. There is dextroconvex scoliosis centered in the mid lumbar spine with multilevel spurring of the thor acolumbar spine and with multilevel facet arthropathy in the mid to lower lumbar spine. IMPRESSION: Slight Local neoplastic progression. No new hypermetabolic lymph nodes or masses.
== END | disposition home or self-care (01) ==
LOC: RADPETMAIN 12:07
PROVIDERS: ATTEND Internal Medicine Hematology & Oncology
DX: C85.90 Non-Hodgkin lymphoma, unspecified, unspecified site (principal); Z85.3 Personal history of malignant neoplasm of breast
CPT/HCPCS: 78815; A9552

== ENCOUNTER → 2020-09-27 | Outpatient (CLI) | payer MEDICARE, OTHER | END | disposition home or self-care (01) | LOC: LABWHC1 16:31 | PROVIDERS: ATTEND Family Medicine | DX: Z20.822 Contact with and (suspected) exposure to COVID-19 (principal) | CPT/HCPCS: U0003; C9803; U0005 ==

== ENCOUNTER 2020-09-28 07:16 | Inpatient (IN) | payer MEDICARE, OTHER ==
[2020-09-28] MEDS ORDERED: LIDOCAINE VISCOUS 2% 15 ML CUP MUCOUS MEM ONE (08:13)
[2020-09-28] MEDS ORDERED: KETOROLAC 15 MG/ML 1 ML VIAL IVP STA (08:14)
--- NOTE | 2020-09-28 08:54 | XR ---
EXAMINATION TYPE: XR chest 2V DATE OF EXAM: 09/28/2020 COMPARISON: 07/05/2020 HISTORY: Shortness of breath TECHNIQUE: Frontal and lateral views of the chest are obtained. FINDINGS: Scattered senescent parenchymal changes noted. Hyperinflation compatible with COPD. Subtle interstitial prominence within the mid and lower lung zones may reflect developing infiltrate. Correlate clinically. MediPort catheter is unchanged. Heart size is stable. Mediastinal structures are stable and grossly unremarkable. No evidence for hilar prominence. Degenerative changes dorsal spine. IMPRESSION: 1. Subtle interstitial prominence within the mid and lower lung zones may reflect developing infiltra te. Correlate clinically.
[2020-09-28] MEDS ORDERED: methylPREDNISolone SOD SUCCI 125 MG/2 ML VIAL IV STA (09:15)
[2020-09-28] MEDS ORDERED: FAMOTIDINE 20 MG/2 ML VIAL IV STA (09:15)
[2020-09-28] MEDS ORDERED: diphenhydrAMINE 50 MG/ML 1 ML VIAL IVP STA (09:15)
[2020-09-28 09:16] LABS: Basophils % (A) 1 %; Eosinophils % (A) 0 %; HCT 44.9 % (34.0-46.0); HGB 15.4 gm/dL (11.4-16.0); Lymphocytes # (A) 0.9 k/uL (1.0-4.8); Lymphocytes % (A) 39 %; MCHC 34.2 g/dL (31.0-37.0); MCV 90.8 fL (80.0-100.0); Mean Platelet Volume 7.8; Monocytes # (A) 0.3 k/uL (0-1.0); Monocytes % (A) 13 %; Neutrophils % (A) 44 %; Platelet Count 145 k/uL (150-450); RBC 4.95 m/uL (3.80-5.40); RDW 12.8 % (11.5-15.5); WBC 2.2 k/uL (3.8-10.6)
[2020-09-28 09:23] LABS: Albumin 3.9 g/dL (3.5-5.0); C Reactive Protein 14.2 mg/L (<10.0); Calcium 8.8 mg/dL (8.4-10.2); Potassium 4.4 mmol/L (3.5-5.1); Total Bilirubin 0.5 mg/dL (0.2-1.3); Total Protein 6.5 g/dL (6.3-8.2)
[2020-09-28 09:26] LABS: Prothrombin Time 10.8 sec (9.0-12.0)
--- NOTE | 2020-09-28 10:00 | CT ---
EXAMINATION TYPE: CT soft tissue neck w con DATE OF EXAM: 09/28/2020 COMPARISON: Head CT 09/21/2020 HISTORY: Throat swelling and hoarseness CT DLP: 230 mGycm CONTRAST: CT scan of the neck is performed with IV Contrast, patient injected with 80 mL of Isovue 300. Contrast enhanced CT of the neck was performed from the skull base through the lung apices. AIRWAY: The supraglottic and subglottic portions of the airway appear patent and free of mass. Ther e is airway narrowing at the level of the vocal cords measuring up to 3.7 mm. This is of uncertain et iology and consider direct visualization. No distinct mass appreciated. SALIVARY GLANDS: The submandibular and parotid glands are free of mass or inflammatory process. THYROID GLAND: No nodules or masses seen. LYMPH NODES: No adenopathy seen greater than 1cm. LUNG APICES: 2.5 cm left upper lobe mass. OTHER: Vascular structures are patent. Moderate degenerative narrowing throughout the cervical spine . No abscess seen. IMPRESSION: 1.There is airway narrowing at the level of the vocal cords measuring up to 3.7 mm. This is of uncert ain etiology and consider direct visualization. No distinct mass appreciated. 2. Left apical lung mass.
[2020-09-28] MEDS ORDERED: MORPHINE SULFATE 4 MG/ML SYRINGE IVP STA (10:13)
[2020-09-28] MEDS ORDERED: NALOXONE 0.4 MG/ML 1 ML VIAL IV PRN (10:39)
--- NOTE | 2020-09-28 10:39 | ED ---
ENT HPI - General Chief complaint: ENT Stated complaint: SALEEM Source: patient, family Mode of arrival: wheelchair Limitations: physical limitation - History of Present Illness Initial comments: 85-year-old female with past medical history of A. fib, COPD, lymphoma on active chemotherapy presents emergency Department reporting that her throat is closing off. She reports that she began having a sore throat yesterday. She attempted to go to sleep. She woke at 3 AM and states that she had sudden onset that her throat was closing off. She feels as if she is having difficulty breathing and swallowing. Patient was able to take some Tylenol and drink some water without vomiting. No history of similar in the past. Denies fevers or chills. No concern for ALLERGIC reaction as the patient has not come into contact with any new exposures. She did test positive for Covid yesterday however denies any current shortness of breath, cough, nausea, vomiting or diarrhea. Patient sees Dr. Kennedy from oncology. Last chemo session was on the eighth. No other alleviating, precipitating or modifying factors - Related Data Home Medications Medication Instructions Recorded Confirmed Acetaminophen [Tylenol Extra 500 - 1,000 mg PO TID PRN 09/26/18 09/28/20 Strength] Levothyroxine Sodium [Synthroid] 100 mcg PO DAILY 08/02/19 09/28/20 Ubidecarenone [Co Q-10] 300 mg PO DAILY 08/25/19 09/28/20 Albuterol Inhaler [Ventolin Hfa 2 puff INHALATION RT-Q4H PRN 12/27/19 09/28/20 Inhaler] Ascorbic Acid [Vitamin C] 1,000 mg PO DAILY 06/02/20 09/28/20 Cholecalciferol [Vitamin D3 (25 50 mcg PO DAILY 06/02/20 09/28/20 Mcg = 1000 Iu)] Cyanocobalamin (Vitamin B-12) 1,000 mcg PO DAILY 06/02/20 09/28/20 [Vitamin B-12] [place]-3 Fatty Acids/Fish Oil [Fish 1 cap PO DAILY 06/02/20 09/28/20 Oil 1,000 mg Softgel] Albuterol Nebulized [Ventolin 2.5 mg INHALATION RT-QID PRN 09/28/20 09/28/20 Nebulized] Multivit-Min36/Iron/Folic Acid 1 tab PO DAILY 09/28/20 09/28/20 [Geritol Complete Tablet] Allergies Allergy/AdvReac Type Severity Reaction Status Date / Time Iodinated Contrast Media Allergy Severe Anaphylaxis Verified 09/28/20 11:47 [Iodinated Contrast Media - IV Dye] atorvastatin calcium AdvReac Nausea Verified 09/28/20 11:47 [From Lipitor] celecoxib [From Celebrex] AdvReac Nausea Verified 09/28/20 11:47 cephalexin [From Keflex] AdvReac thrush Verified 09/28/20 11:47 influenza virus vaccine, AdvReac Nausea & Verified 09/28/20 11:47 specific Vomiting & [influenza virus Diarrhea,high vacc,specific] fever Review of Systems ROS Statement: Those systems with pertinent positive or pertinent negative responses have been documented in the HPI. ROS Other: All systems not noted in ROS Statement are negative. Past Medical History Past Medical History: Atrial Fibrillation, Cancer, COPD, GERD/Reflux, Hearing Disorder / Deafness, Hyperlipidemia, Osteoarthritis (OA), Pneumonia, Thyroid Disorder Additional Past Medical History / Comment(s): Constipation, bowel adhesions. Hx bowel obstruction, right breast cancer-1997 no chemo or radiation, melanoma face 2014, osteoporosis, pneumonia Aug 2016, Lymphoma receives immunotherapy q60d, active shingles History of Any Multi-Drug Resistant Organisms: MRSA Date of last positivie culture/infection: 2010? MDRO Source:: post surgical wound from bowel resection Past Surgical History: Appendectomy, Bowel Resection, Breast Surgery, Cholecystectomy, Hysterectomy Additional Past Surgical History / Comment(s): Bilateral cataracts, right mastectomy, port a cath left upper chest Past Anesthesia/Blood Transfusion Reactions: No Reported Reaction Additional Past Anesthesia/Blood Transfusion Reaction / Comment(s): no hx blood transfusion Past Psychological History: No Psychological Hx Reported Smoking Status: Former smoker Past Alcohol Use History: None Reported Past Drug Use History: None Reported - Past Family History Sister(s) Family Medical History: Cancer Additional Family Medical History / Comment(s): breast Cancer in 4 sisters Son(s) Family Medical History: Cancer Additional Family Medical History / Comment(s): LYMPHOMA, Congential heart problem. Daughter(s) Family Medical History: Cancer Additional Family Medical History / Comment(s): colon cancer Brother(s) Family Medical History: Cancer Additional Family Medical History / Comment(s): ONE BROTHER BLADDER CA, ONE WITH LUNG CA Mother Family Medical History: Cancer Additional Family Medical History / Comment(s): Stomach cancer Father Family Medical History: CVA/TIA General Exam Limitations: no limitations General appearance: alert, in no apparent distress Head exam: Present: atraumatic, normocephalic, normal inspection Eye exam: Present: normal appearance, PERRL, EOMI. Absent: scleral icterus, conjunctival injection, periorbital swelling ENT exam: Present: normal exam, mucous membranes moist, other (no posterior pharyngeal swelling. No drooling, trisumus, hoarseness or stridor. No brawny edema of the neck. No palpable anterior neck lizz) Neck exam: Present: normal inspection. Absent: tenderness, meningismus, lymphadenopathy Respiratory exam: Present: normal lung sounds bilaterally. Absent: respiratory distress, wheezes, rales, rhonchi, stridor Cardiovascular Exam: Present: regular rate, normal rhythm, normal heart sounds. Absent: systolic murmur, diastolic murmur, rubs, gallop, clicks GI/Abdominal exam: Present: soft, normal bowel sounds. Absent: distended, tenderness, guarding, rebound, rigid Extremities exam: Present: normal inspection, full ROM, normal capillary refill. Absent: tenderness, pedal edema, joint swelling, calf tenderness Back exam: Present: normal inspection Neurological exam: Present: alert, oriented X3, CN II-XII intact Psychiatric exam: Present: normal affect, normal mood Skin exam: Present: warm, dry, intact, normal color. Absent: rash Course Vital Signs 09/28/20 09/28/20 09/28/20 07:17 07:32 08:00 Temperature 99.1 F Pulse Rate 63 Respiratory 22 Rate Blood Pressure 131/60 O2 Sat by Pulse 95 94 L 95 Oximetry 09/28/20 09/28/20 09/28/20 08:37 10:00 10:33 Temperature Pulse Rate 53 L 72 Respiratory 18 18 Rate Blood Pressure 131/60 124/44 128/54 O2 Sat by Pulse 96 93 L 95 Oximetry 09/28/20 09/28/20 09/28/20 12:00 14:00 16:00 Temperature Pulse Rate 72 67 Respiratory 20 23 20 Rate Blood Pressure 120/60 137/62 120/57 O2 Sat by Pulse 95 89 L 88 L Oximetry 09/28/20 17:23 Temperature 99.1 F Pulse Rate 67 Respiratory 20 Rate Blood Pressure 120/57 O2 Sat by Pulse 94 L Oximetry Medical Decision Making - Medical Decision Making Upon arrival patient is placed in room 23. A thorough history and physical exam is performed. Patient is in a significant amount of distress due to the sensation that her airway is closing off. Patient does not demonstrate any drooling, trismus, hoarseness or stridor. Posterior pharynx is widely patent. The patient does have normal vitals. IV is established. The patient was given 15 mg of Toradol for pain control and started on 75 mL of normal saline per hour. I also provided her with some viscous lidocaine. Laboratory studies were conducted. I did recommend a CT of her soft tissues of her neck. Patient does have a contrast ALLERGY and therefore she is given Benadryl, Pepcid and Solu-Medrol. Laboratory studies are reviewed. White count mildly low at 2.2. CT of the neck demonstrates airway narrowing at the level of the vocal cords measuring 3.7 mm. Left apical lung mass consistent with her history of lymphoma. Chest x-ray demonstrates subtle interstitial prominence within the mid and lower lung zones. I did discuss these results with Dr. Del Castillo who accepted admission of the patient. I will place oncology and ENT on consult for possible scope. Patient did agree to this treatment plan and continued to have some pain and therefore she was given 4 mg of morphine informal grams of Zofran. Patient is currently awaiting a bed on the floor - Lab Data Result diagrams: 10/01/20 06:59 10/01/20 06:59 Lab Results 09/28/20 09/28/20 09/28/20 Range/Units 07:35 08:35 08:35 WBC 2.2 L (3.8-10.6) k/uL RBC 4.95 (3.80-5.40) m/uL Hgb 15.4 (11.4-16.0) gm/dL Hct 44.9 (34.0-46.0) % MCV 90.8 (80.0-100.0) fL MCH 31.0 (25.0-35.0) pg MCHC 34.2 (31.0-37.0) g/dL RDW 12.8 (11.5-15.5) % Plt Count 145 L (150-450) k/uL Plt Count Comment MPV 7.8 Immature Gran % (Auto) % Absolute Nucleated RBC (0.00-0.00) X 10*3/uL Neutrophils % 44 % Lymphocytes % 39 % Monocytes % 13 % Eosinophils % 0 % Basophils % 1 % Immature Gran # (0.00-0.04) X 10*3/uL Neutrophils # 1.0 L (1.3-7.7) k/uL Lymphocytes # 0.9 L (1.0-4.8) k/uL Monocytes # 0.3 (0-1.0) k/uL Eosinophils # 0.0 (0-0.7) k/uL Basophils # 0.0 (0-0.2) k/uL NRBC/100 WBC Diff (0.0-0.0) /100 WBCS Elliptocytes ESR Cancelled PT 10.8 (9.0-12.0) sec INR 1.0 (<1.2) APTT 25.0 (22.0-30.0) sec D-Dimer (<0.60) mg/L FEU Sodium (137-145) mmol/L Potassium (3.5-5.1) mmol/L Chloride (98-107) mmol/L Carbon Dioxide (22-30) mmol/L Anion Gap mmol/L BUN (7-17) mg/dL Creatinine (0.52-1.04) mg/dL Est GFR (CKD-EPI)AfAm (>60 ml/min/1.73 sqM) Est GFR (CKD-EPI)NonAf (>60 ml/min/1.73 sqM) Glucose (74-99) mg/dL Plasma Lactic Acid Jefferson 1.3 (0.7-2.0) mmol/L Calcium (8.4-10.2) mg/dL Total Bilirubin (0.2-1.3) mg/dL AST (14-36) U/L ALT (4-34) U/L Alkaline Phosphatase (38-126) U/L Lactate Dehydrogenase (313-618) U/L C-Reactive Protein (<10.0) mg/L Total Protein (6.3-8.2) g/dL Albumin (3.5-5.0) g/dL Globulin g/dL Albumin/Globulin Ratio 09/28/20 09/28/20 09/29/20 Range/Units 08:35 10:00 09:10 WBC 2.0 L (3.8-10.6) k/uL RBC 4.57 (3.80-5.40) m/uL Hgb 14.5 (11.4-16.0) gm/dL Hct 42.5 (34.0-46.0) % MCV 93.2 (80.0-100.0) fL MCH 31.7 (25.0-35.0) pg MCHC 34.0 (31.0-37.0) g/dL RDW 12.3 (11.5-15.5) % Plt Count 116 L (150-450) k/uL Plt Count Comment DECREASED A MPV 8.0 Immature Gran % (Auto) 0.6 % Absolute Nucleated RBC 0 (0.00-0.00) X 10*3/uL Neutrophils % 48 % Lymphocytes % 38 % Monocytes % 10 % Eosinophils % 1 % Basophils % 0 % Immature Gran # 0.01 (0.00-0.04) X 10*3/uL Neutrophils # 1.0 L (1.3-7.7) k/uL Lymphocytes # 0.8 L (1.0-4.8) k/uL Monocytes # 0.2 (0-1.0) k/uL Eosinophils # 0.0 (0-0.7) k/uL Basophils # 0.0 (0-0.2) k/uL NRBC/100 WBC Diff 0 (0.0-0.0) /100 WBCS Elliptocytes 2+ ESR 9 PT (9.0-12.0) sec INR (<1.2) APTT (22.0-30.0) sec D-Dimer (<0.60) mg/L FEU Sodium 130 L (137-145) mmol/L Potassium 4.4 (3.5-5.1) mmol/L Chloride 102 (98-107) mmol/L Carbon Dioxide 19 L (22-30) mmol/L Anion Gap 9 mmol/L BUN 10 (7-17) mg/dL Creatinine 0.95 (0.52-1.04) mg/dL Est GFR (CKD-EPI)AfAm 64 (>60 ml/min/1.73 sqM) Est GFR (CKD-EPI)NonAf 55 (>60 ml/min/1.73 sqM) Glucose 112 H (74-99) mg/dL Plasma Lactic Acid Jefferson (0.7-2.0) mmol/L Calcium 8.8 (8.4-10.2) mg/dL Total Bilirubin 0.5 (0.2-1.3) mg/dL AST 121 H (14-36) U/L ALT 160 H (4-34) U/L Alkaline Phosphatase 111 (38-126) U/L Lactate Dehydrogenase (313-618) U/L C-Reactive Protein 14.2 H (<10.0) mg/L Total Protein 6.5 (6.3-8.2) g/dL Albumin 3.9 (3.5-5.0) g/dL Globulin g/dL Albumin/Globulin Ratio 09/29/20 09/29/20 Range/Units 09:13 11:48 WBC (3.8-10.6) k/uL RBC (3.80-5.40) m/uL Hgb (11.4-16.0) gm/dL Hct (34.0-46.0) % MCV (80.0-100.0) fL MCH (25.0-35.0) pg MCHC (31.0-37.0) g/dL RDW (11.5-15.5) % Plt Count (150-450) k/uL Plt Count Comment MPV Immature Gran % (Auto) % Absolute Nucleated RBC (0.00-0.00) X 10*3/uL Neutrophils % % Lymphocytes % % Monocytes % % Eosinophils % % Basophils % % Immature Gran # (0.00-0.04) X 10*3/uL Neutrophils # (1.3-7.7) k/uL Lymphocytes # (1.0-4.8) k/uL Monocytes # (0-1.0) k/uL Eosinophils # (0-0.7) k/uL Basophils # (0-0.2) k/uL NRBC/100 WBC Diff (0.0-0.0) /100 WBCS Elliptocytes ESR PT (9.0-12.0) sec INR (<1.2) APTT (22.0-30.0) sec D-Dimer 0.38 (<0.60) mg/L FEU Sodium 133 L (137-145) mmol/L Potassium 5.1 (3.5-5.1) mmol/L Chloride 106 (98-107) mmol/L Carbon Dioxide 21 L (22-30) mmol/L Anion Gap 6 mmol/L BUN 14 (7-17) mg/dL Creatinine 0.92 (0.52-1.04) mg/dL Est GFR (CKD-EPI)AfAm 66 (>60 ml/min/1.73 sqM) Est GFR (CKD-EPI)NonAf 57 (>60 ml/min/1.73 sqM) Glucose 108 H (74-99) mg/dL Plasma Lactic Acid Jefferson (0.7-2.0) mmol/L Calcium 8.3 L (8.4-10.2) mg/dL Total Bilirubin 0.8 (0.2-1.3) mg/dL AST 314 H (14-36) U/L ALT 284 H (4-34) U/L Alkaline Phosphatase 120 (38-126) U/L Lactate Dehydrogenase 1149 H (313-618) U/L C-Reactive Protein 27.0 H (<10.0) mg/L Total Protein 6.1 L (6.3-8.2) g/dL Albumin 3.6 (3.5-5.0) g/dL Globulin 2.5 g/dL Albumin/Globulin Ratio 1.4 Disposition Clinical Impression: Acute respiratory insufficiency, Trachea, stenosis, Lymphoma, COVID-19 Disposition: ADMITTED IP TO THIS [facility] Condition: Stable Is patient prescribed a controlled substance at d/c from ED?: No Decision to Admit Reason: Admit from EC Decision Date: 09/28/20 Decision Time: 10:39
[2020-09-28] MEDS: ONDANSETRON 4 MG/2 ML VIAL IVP PRN (12:12)
[2020-09-28] MEDS: SODIUM CHLORIDE 0.9% 1,000 ML IV SCH ×2 (13:11→21:52)
[2020-09-28] MEDS: MORPHINE SULFATE 4 MG/ML SYRINGE IV PRN (21:50)
--- NOTE | 2020-09-28 23:51 | P.HPIM ---
History of Present Illness H&P Date: 09/28/20 Chief Complaint: Sore throat Ms. Dudley is a 85-year-old female with a past medical history of atrial fibrillation, GERD, hypertension, hyperlipidemia, osteoarthritis, thyroid disorder, and breast cancer, melanoma of the face, osteoporosis, lymphoma receiving immunotherapy coming to the hospital stating that she has a sore throat and feels like that it is closing off on her. Patient states that she was diagnosed with Covid infection 3 to 4 days back, she states that her granddaughter was tested positive for Covid and she probably got it from her. She has also been feeling lethargic with myalgias. She denies having any fevers or chills. Her main complaint is that she feels that her throat is closing off and it has been difficult for her to breathe or swallow. Patient denies having any abdominal pain nausea vomiting or diarrhea. No dysuria or hematuria. In the ER patient had soft tissue neck CT showing airway narrowing at the level of vocal cords measuring up to 3.7 mm and the left apical lung mass. Patient was given a dose of Solu-Medrol and is admitted for further management. Patient's vitals at the time of admission temperature of 99.1, heart rate 63, rest rate 22 saturating at 95% on room air. On reviewing her labs white count of 2.2, hemoglobin 15.4, platelets 145. Sodium 130, potassium 4.4, chloride 102, bicarb 19. BUN is 10 and creatinine 0.95. CRP of 14.2. Review of Systems REVIEW OF SYSTEMS: CONSTITUTIONAL: As per HPI HEENT: No recent visual problems or hearing problems. As per HPI CARDIOVASCULAR: No chest pain, orthopnea, PND, no palpitations, no syncope. PULMONARY:No cough or SOB GASTROINTESTINAL: NO nausea and vomiting. No diarrhea. No abdominal pain NEUROLOGICAL: No headaches, no weakness. HEMATOLOGICAL: Denies any bleeding or petechiae. GENITOURINARY: Denies any burning micturition, frequency, or urgency. MUSCULOSKELETAL/RHEUMATOLOGICAL: Denies any joint pain, swelling, or any muscle pain. ENDOCRINE: Denies any polyuria or polydipsia. The rest of the 14-point review of systems is negative. Past Medical History Past Medical History: Atrial Fibrillation, Cancer, COPD, GERD/Reflux, Hearing Disorder / Deafness, Hyperlipidemia, Osteoarthritis (OA), Pneumonia, Thyroid Disorder Additional Past Medical History / Comment(s): Constipation, bowel adhesions. Hx bowel obstruction, right breast cancer-1997 no chemo or radiation, melanoma face 2014, osteoporosis, pneumonia Aug 2016, Lymphoma receives immunotherapy q60d, active shingles History of Any Multi-Drug Resistant Organisms: MRSA Date of last positivie culture/infection: 2010? MDRO Source:: post surgical wound from bowel resection Past Surgical History: Appendectomy, Bowel Resection, Breast Surgery, Cholecystectomy, Hysterectomy Additional Past Surgical History / Comment(s): Bilateral cataracts, right mast ectomy, port a cath left upper chest Past Anesthesia/Blood Transfusion Reactions: No Reported Reaction Additional Past Anesthesia/Blood Transfusion Reaction / Comment(s): no hx blood transfusion Past Psychological History: No Psychological Hx Reported Smoking Status: Former smoker Past Alcohol Use History: None Reported Past Drug Use History: None Reported - Past Family History Sister(s) Family Medical History: Cancer Additional Family Medical History / Comment(s): breast Cancer in 4 sisters Son(s) Family Medical History: Cancer Additional Family Medical History / Comment(s): LYMPHOMA, Congential heart pro blem. Daughter(s) Family Medical History: Cancer Additional Family Medical History / Comment(s): colon cancer Brother(s) Family Medical History: Cancer Additional Family Medical History / Comment(s): ONE BROTHER BLADDER CA, ONE WITH LUNG CA Mother Family Medical History: Cancer Additional Family Medical History / Comment(s): Stomach cancer Father Family Medical History: CVA/TIA Medications and Allergies Home Medications Medication Instructions Recorded Confirmed Type Acetaminophen [Tylenol Extra 500 - 1,000 mg PO TID PRN 09/26/18 09/28/20 History Strength] Levothyroxine Sodium [Synthroid] 100 mcg PO DAILY 08/02/19 09/28/20 History Ubidecarenone [Co Q-10] 300 mg PO DAILY 08/25/19 09/28/20 History Albuterol Inhaler [Ventolin Hfa 2 puff INHALATION RT-Q4H PRN 12/27/19 09/28/20 History Inhaler] Ascorbic Acid [Vitamin C] 1,000 mg PO DAILY 06/02/20 09/28/20 History Cholecalciferol [Vitamin D3 (25 50 mcg PO DAILY 06/02/20 09/28/20 History Mcg = 1000 Iu)] Cyanocobalamin (Vitamin B-12) 1,000 mcg PO DAILY 06/02/20 09/28/20 History [Vitamin B-12] [place]-3 Fatty Acids/Fish Oil [Fish 1 cap PO DAILY 06/02/20 09/28/20 History Oil 1,000 mg Softgel] Albuterol Nebulized [Ventolin 2.5 mg INHALATION RT-QID PRN 09/28/20 09/28/20 History Nebulized] Multivit-Min36/Iron/Folic Acid 1 tab PO DAILY 09/28/20 09/28/20 History [Geritol Complete Tablet] Allergies Allergy/AdvReac Type Severity Reaction Status Date / Time Iodinated Contrast Media Allergy Severe Anaphylaxis Verified 09/28/20 11:47 [Iodinated Contrast Media - IV Dye] atorvastatin calcium AdvReac Nausea Verified 09/28/20 11:47 [From Lipitor] celecoxib [From Celebrex] AdvReac Nausea Verified 09/28/20 11:47 cephalexin [From Keflex] AdvReac thrush Verified 09/28/20 11:47 influenza virus vaccine, AdvReac Nausea & Verified 09/28/20 11:47 specific Vomiting & [influenza virus Diarrhea,high vacc,specific] fever Physical Exam Vitals: Vital Signs Temp Pulse Resp BP Pulse Ox 09/28/20 17:23 99.1 F 67 20 120/57 94 L 09/28/20 16:00 67 20 120/57 88 L 09/28/20 14:00 72 23 137/62 89 L 09/28/20 12:00 20 120/60 95 09/28/20 10:33 72 18 128/54 95 09/28/20 10:00 124/44 93 L 09/28/20 08:37 53 L 18 131/60 96 09/28/20 08:00 131/60 95 09/28/20 07:32 94 L 09/28/20 07:17 99.1 F 63 22 95 Intake and Output 09/28/20 09/28/20 09/28/20 06:59 14:59 22:59 Other: Weight 67.585 kg PHYSICAL EXAMINATION: GENERAL: The patient is alert and oriented x3, not in any acute distress. Elderly lying in bed HEENT: Pupils are round and equally reacting to light. EOMI. No scleral icterus. No pallor. Throat exam- she has dentures, could not visualize the back of her thraot. CARDIOVASCULAR: S1 and S2 present. PULMONARY: Bilateral breath sounds positive. No crackles at the lower lung bases. ABDOMEN: Abdomen is soft. Nontender. Nondistended. Normal bowel sounds. MUSCULOSKELETAL: No joint swelling or deformity. EXTREMITIES: No cyanosis, clubbing, or pedal edema. NEUROLOGICAL: Gross neurological examination did not reveal any focal deficits. SKIN: No rashes. Results CBC & Chem 7: 09/28/20 08:35 09/28/20 08:35 Labs: Abnormal Lab Results - Last 24 Hours (Table) 09/28/20 09/28/20 Range/Units 08:35 08:35 WBC 2.2 L (3.8-10.6) k/uL Plt Count 145 L (150-450) k/uL Neutrophils # 1.0 L (1.3-7.7) k/uL Lymphocytes # 0.9 L (1.0-4.8) k/uL Sodium 130 L (137-145) mmol/L Carbon Dioxide 19 L (22-30) mmol/L Glucose 112 H (74-99) mg/dL AST 121 H (14-36) U/L ALT 160 H (4-34) U/L C-Reactive Protein 14.2 H (<10.0) mg/L Assessment and Plan Assessment: ASSESSMENT COVID-19 pneumonia Sore throat Airway narrowing at the level of vocal cords Leukopenia with lymphopenia Hyponatremia-most likely hypovolemic Transaminitis Elevated inflammatory markers History of atrial fibrillation Right breast cancer Lymphoma on immunotherapy Hyperlipidemia Hypertension GERD Thyroid disorder Hard of hearing History of breast surgery History of hysterectomy History of bowel resection Former smoker PLAN: Patient received a dose of Solu-Medrol in the ED along with Benadryl and famotidine. She states that she feels a little better since coming in to the hospital. Patient is requiring 2 L of oxygen and saturating at 94%. As the CAT scan of the neck is showing narrowing at the level of vocal cords, patient will need direct visualization of the larynx, for which ENT has been consulted. Patient has Covid and chest x-ray showing bilateral infiltrates, so we will continue with Decadron 6 mg. Lovenox for DVT prophylaxis. She will be restarted on her home medications. Oncology Dr. Kennedy has been consulted. Overall prognosis is guarded secondary to her age and chronic medical conditions. Further recommendations to follow depending on the progress of the patient.
[2020-09-29] MEDS: LEVOTHYROXINE 100 MCG TAB PO SCH (05:11)
[2020-09-29] MEDS: MORPHINE SULFATE 4 MG/ML SYRINGE IV PRN (06:25)
[2020-09-29] MEDS: CYANOCOBALAMIN 500 MCG TAB PO SCH (08:15)
[2020-09-29] MEDS: ASCORBIC ACID 500 MG TAB PO SCH (08:15)
[2020-09-29] MEDS: ENOXAPARIN 40 MG/0.4 ML SYRINGE SQ SCH (08:15)
[2020-09-29] MEDS: MULTIVITAMINS, THERA 1 EACH TAB PO SCH (08:15)
[2020-09-29] MEDS: CHOLECALCIFEROL 25 MCG (1000 IU) TABLET PO SCH (08:15)
[2020-09-29] MEDS ORDERED: NON FORMULARY DRUG (Ubidecarenone [Co Q-10] 300 MG Capsule) PO SCH (09:00)
[2020-09-29] MEDS ORDERED: NON FORMULARY DRUG (Omega-3 Fatty Acids/Fish Oil [Fish Oil 1,000 Mg Softgel] 1 EACH Capsul PO SCH (09:00)
[2020-09-29] MEDS ORDERED: dexAMETHasone 2 MG TAB PO SCH (09:00)
[2020-09-29 09:51] LABS: Basophils % (A) 0 %; Eosinophils % (A) 1 %; HCT 42.5 % (34.0-46.0); HGB 14.5 gm/dL (11.4-16.0); Lymphocytes # (A) 0.8 k/uL (1.0-4.8); Lymphocytes % (A) 38 %; MCH 31.7 pg (25.0-35.0); MCV 93.2 fL (80.0-100.0); Monocytes # (A) 0.2 k/uL (0-1.0); Monocytes % (A) 10 %; Neutrophils % (A) 48 %; Platelet Count 116 k/uL (150-450); RBC 4.57 m/uL (3.80-5.40); RDW 12.3 % (11.5-15.5)
[2020-09-29 12:27] LABS: ALT 284 U/L (4-34); AST 314 U/L (14-36); African American GFR (CKD) 66 (>60 ml/min/1.73 sqM); Albumin 3.6 g/dL (3.5-5.0); Albumin/Globulin Ratio 1.4; Alkaline Phosphatase 120 U/L (38-126); Anion Gap 6 mmol/L; Blood Urea Nitrogen 14 mg/dL (7-17); Calcium 8.3 mg/dL (8.4-10.2); Carbon Dioxide 21 mmol/L (22-30); Chloride 106 mmol/L (98-107); Globulin 2.5 g/dL; Glucose 108 mg/dL (74-99); LDH 1149 U/L (313-618); Non-African American GFR(CKD) 57 (>60 ml/min/1.73 sqM); Sodium 133 mmol/L (137-145); Total Bilirubin 0.8 mg/dL (0.2-1.3); Total Protein 6.1 g/dL (6.3-8.2)
[2020-09-29 12:33] LABS: Potassium 5.1 mmol/L (3.5-5.1)
--- NOTE | 2020-09-29 15:02 | P.CONS ---
History of Present Illness - Reason for Consult Consult date: 09/29/20 Lymphoma Requesting physician: Nessa Pike - Chief Complaint Throat tightness - History of Present Illness Ms. Dudley is an 85 yo female with history of NHL as detailed below, how is here for sudden onset of throat tightening that woke her up at 3am. Work up in ED revealed narrowing of airway at vocal cord and CXR with bilateral infiltrate. COVID positive from a few days ago. WBC 2, Hgb 14, plt 145 on presentation, 116 today. She was started on steroids and admitted for further care. We were called due to her history of lymphoma, on treatment. Her cancer history is as follows: She follows with Dr. Kennedy. 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 She also has a remote history of a stage II breast cancer which was diagnosed in December 1999. She has not been seen by myself for about 3 1/2 years. She had been having problems with the dizziness and was seen in an emergency room. During the course of that evaluation, a skin lesion was noted by the ER physician and an excision was recommended. This was done on the 24 of March. The pathology was positive for basal cell carcinoma extending to the margin of resection. Patient denies any other history of skin lesions in the past. She denies any adenopathy. She's not had any fever, chills, night sweats or unexplained weight loss. 09/16/18: Marsha presented to Dr Zuleima Arias, her PCP, with rapidly progressive painful swelling of L axilla X 2 months, she was refered to Dr Arias-Vinod > Core Bx on 08/18/18 was suggestive of high-grade Lymphoma, incisional Bx on 09/07/18 revealed Diffuse Large B cell Lymphoma, BCL6+, further Molecular studies pending (Gen Path). She is C/O severe L axillary pain, denies fever, but admits night sweats and weight loss of 25 LBS in last 4 months which she attributed part of it to recent Hital Hernia surgery (Dr Pineda). 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 Had R Mastectomy 1999, no Chemotherapy, received AIs(Arimidex) X 5 years (Dr Grace), last visit 2011. 10/20/18-patient follow-up today, status post first R-CHOP with Neulasta. Patient was doing very well up until the last 2-3 days, soreness of the tongue has decreased her appetite and oral intake, she is down nearly 10 pounds, she is feeling very weak. Denies fevers, difficulty swallowing, shortness of breath is stable, oxygen needs are stable, no abdominal pain or distention, patient did require a fleets enema for constipation, no bleeding, swelling, weakness is moderate/severe. 10 point review of systems is otherwise negative 10/29/18: Reported severe mucositis for 10 days after Chemotherapy > recovered, had minimal N/V, lost 10LBS in last 2 weeks. 11/16/18: Feels Ok, C/O fatigue, No B-symptoms. Tolerated cycle#2 of R-CHOP Chemotherapy well. 12/09/18: Feels Ok, Tired, tolerated Chemotherapy (Cycle#3) poorly. PET Scan : CR but ELOINA spiculated pulmonary nodule persiststed with moderated SUV of 5. 12/22/18: Only complaint is fatigue and palpiatations. Copleted chemo, otherwise feeling better. 01/27/19: Feels Ok, stronger, no B-symptoms, fully active. 04/26/19: Feels well, tolerating Rituxan well without side effects. 06/23/19: Feels well, tolerating Rituxan well, no B-symptoms, fully active. 08/23/19: Feels well, tolerating Rituxan infusion well. Had an abnormal L mammogram, will have biopsy soon. 12/27/19: Feels Ok, C/O upper back pain, no B-symptoms. 02/02/20: Feels well, no B-symptoms , active, tolerated Rituxan well 03/08/20: Feels well, insurance declined further coverage for Rituxan 05/25/20: C/O painfull R sisded abdominal wall lesions started 2 days ago, no B- symptoms. PET Scan: Definate progression 06/07/20:shingles pain has been keeping up at night, gabapentin helps but only taking tid. Lesions scabbed over. Otherwise feels k, denies b symptoms. 06/19/20: Feels Ok, Zoster lesions healed, no longer painful. 07/31/20: Feels Ok, C/O mild left lower chest wall tenderness, no B-symptoms. She was last seen on 07/31/20 and plan was to proceed with Rituxan weekly x 4 doses, followed by PET scan. She completed her 4 weekly rituxan treatments, last given on 09/10/20. Review of Systems All systems: negative Past Medical History Past Medical History: Atrial Fibrillation, Cancer, COPD, GERD/Reflux, Hearing Disorder / Deafness, Hyperlipidemia, Osteoarthritis (OA), Pneumonia, Thyroid Disorder Additional Past Medical History / Comment(s): Constipation, bowel adhesions. Hx bowel obstruction, right breast cancer-1997 no chemo or radiation, melanoma face 2014, osteoporosis, pneumonia Aug 2016, Lymphoma receives immunotherapy q60d, active shingles History of Any Multi-Drug Resistant Organisms: MRSA Year Discovered:: 2010? MDRO Source:: post surgical wound from bowel resection Past Surgical History: Appendectomy, Bowel Resection, Breast Surgery, Cholecystectomy, Hysterectomy Additional Past Surgical History / Comment(s): Bilateral cataracts, right mastectomy, port a cath left upper chest Past Anesthesia/Blood Transfusion Reactions: No Reported Reaction Additional Past Anesthesia/Blood Transfusion Reaction / Comm: no hx blood transfusion Past Psychological History: No Psychological Hx Reported Smoking Status: Former smoker Past Alcohol Use History: None Reported Past Drug Use History: None Reported - Past Family History Sister(s) Family Medical History: Cancer Additional Family Medical History / Comment(s): breast Cancer in 4 sisters Son(s) Family Medical History: Cancer Additional Family Medical History / Comment(s): LYMPHOMA, Congential heart problem. Daughter(s) Family Medical History: Cancer Additional Family Medical History / Comment(s): colon cancer Brother(s) Family Medical History: Cancer Additional Family Medical History / Comment(s): ONE BROTHER BLADDER CA, ONE WITH LUNG CA Mother Family Medical History: Cancer Additional Family Medical History / Comment(s): Stomach cancer Father Family Medical History: CVA/TIA Medications and Allergies Home Medications Medication Instructions Recorded Confirmed Type Acetaminophen [Tylenol Extra 500 - 1,000 mg PO TID PRN 09/26/18 09/28/20 History Strength] Levothyroxine Sodium [Synthroid] 100 mcg PO DAILY 08/02/19 09/28/20 History Ubidecarenone [Co Q-10] 300 mg PO DAILY 08/25/19 09/28/20 History Albuterol Inhaler [Ventolin Hfa 2 puff INHALATION RT-Q4H PRN 12/27/19 09/28/20 History Inhaler] Ascorbic Acid [Vitamin C] 1,000 mg PO DAILY 06/02/20 09/28/20 History Cholecalciferol [Vitamin D3 (25 50 mcg PO DAILY 06/02/20 09/28/20 History Mcg = 1000 Iu)] Cyanocobalamin (Vitamin B-12) 1,000 mcg PO DAILY 06/02/20 09/28/20 History [Vitamin B-12] [place]-3 Fatty Acids/Fish Oil [Fish 1 cap PO DAILY 06/02/20 09/28/20 History Oil 1,000 mg Softgel] Albuterol Nebulized [Ventolin 2.5 mg INHALATION RT-QID PRN 09/28/20 09/28/20 History Nebulized] Multivit-Min36/Iron/Folic Acid 1 tab PO DAILY 09/28/20 09/28/20 History [Geritol Complete Tablet] Allergies Allergy/AdvReac Type Severity Reaction Status Date / Time Iodinated Contrast Media Allergy Severe Anaphylaxis Verified 09/28/20 11:47 [Iodinated Contrast Media - IV Dye] atorvastatin calcium AdvReac Nausea Verified 09/28/20 11:47 [From Lipitor] celecoxib [From Celebrex] AdvReac Nausea Verified 09/28/20 11:47 cephalexin [From Keflex] AdvReac thrush Verified 09/28/20 11:47 influenza virus vaccine, AdvReac Nausea & Verified 09/28/20 11:47 specific Vomiting & [influenza virus Diarrhea,high vacc,specific] fever Physical Exam Vitals: Vital Signs Temp Pulse Pulse Resp BP BP Pulse Ox 09/29/20 08:00 97.7 F 65 16 122/70 98 09/29/20 00:54 98.6 F 68 20 129/70 94 L 09/28/20 20:00 97.6 F 74 18 131/57 97 09/28/20 17:57 98.2 F 72 20 138/57 98 09/28/20 17:23 99.1 F 67 20 120/57 94 L 09/28/20 16:00 67 20 120/57 88 L 09/28/20 14:00 72 23 137/62 89 L Intake and Output 09/28/20 09/29/20 09/29/20 22:59 06:59 14:59 Intake Total 560 Balance 560 Intake: Intake, IV Titration 560 Amount Sodium Chloride 0.9% 1, 560 000 ml @ 75 mls/hr IV . [id number] [facility] Rx#:[id number] Other: Voiding Method Toilet Toilet # Voids 1 1 1 Weight 67.585 kg Due to concerns of COVID19 detection/exposure, in an effort to limit healthcare provider exposure and transmission, parts of the encounter may have been obtained through chart review, family members, total/video visits, and/or discussion with primary team/nursing and ancillary staff. Results CBC & Chem 7: 09/29/20 09:10 09/29/20 11:48 Labs: Abnormal Lab Results - Last 24 Hours (Table) 09/29/20 09/29/20 Range/Units 09:10 11:48 WBC 2.0 L (3.8-10.6) k/uL Plt Count 116 L (150-450) k/uL Plt Count Comment DECREASED A Neutrophils # 1.0 L (1.3-7.7) k/uL Lymphocytes # 0.8 L (1.0-4.8) k/uL Sodium 133 L (137-145) mmol/L Carbon Dioxide 21 L (22-30) mmol/L Glucose 108 H (74-99) mg/dL Calcium 8.3 L (8.4-10.2) mg/dL AST 314 H (14-36) U/L ALT 284 H (4-34) U/L Lactate Dehydrogenase 1149 H (313-618) U/L C-Reactive Protein 27.0 H (<10.0) mg/L Total Protein 6.1 L (6.3-8.2) g/dL Comments: CT neck with airway narrowing at hte level of the vocal cords. Left apical lung mass. Chest x-ray: report reviewed Assessment and Plan Assessment: 1. COVID pneumonia 2. Bicytopenia, with anemia and thrombocytopenia due to chemotherapy and infection 3. Airway/vocal cord narrowing 4. Lung mass 5. NHL s/p rituxan weekly x4 doses Plan: Ms. Dudley is an 85 yo female, pt of Dr. Kennedy, with known long standing history of NHL, [place], who is here for throat swelling and airway narrowing at vocal cord on CT in setting of recent diagnosis of COVID infection. CXR with bilateral infiltrations consistent with COVID pneumonia. CT neck also with lung mass, ?infiltrate vs mass? She did recently receive rituxan weekly x4, last dose on 09/10/20. COVID infection management as per primary team. As for her lymphoma, she completed her planned treatment already. Once pt overall improved and discharged, she can follow up with Dr. Kennedy as previously planned for repeat imaging and reassessing her condition. She also has bicytopenia, leukopenia/neutropenia and thrombocytopenia, which is new. Likely this is due to her COVID infection and acute illness, however cannot rule out side effect of rituxan. Monitor and supportive transfusion in future if needed and plt continues to be downtrending. No need for G-CSF as this time as ANC is 1.0 and seems stable. Due to concerns of COVID19 detection/exposure, in an effort to limit healthcare provider exposure and transmission, parts of the encounter may have been obtained through chart review, family members, total/video visits, and/or discussion with primary team/nursing and ancillary staff.
[2020-09-29] MEDS ORDERED: dexAMETHasone 4 MG TAB PO SCH (16:00)
[2020-09-29] MEDS: SODIUM CHLORIDE 0.9% 1,000 ML IV SCH (16:43)
[2020-09-29] MEDS: DEXAMETHASONE SOD PHOSPHATE 10 MG/ML 1 ML VIAL IV SCH ×2 (16:50→21:44)
[2020-09-29] MEDS: TEMAZEPAM 15 MG CAP PO PRN (21:44)
--- NOTE | 2020-09-29 21:55 | P.PN ---
Subjective Progress Note Date: 09/29/20 Principal diagnosis: COVID Pneumonia Ms. Dudley is a 85-year-old female with a past medical history of atrial fibrillation, GERD, hypertension, hyperlipidemia, osteoarthritis, thyroid disorder, and breast cancer, melanoma of the face, osteoporosis, lymphoma receiving immunotherapy coming to the hospital stating that she has a sore throat and feels like that it is closing off on her. Patient states that she was diagnosed with Covid infection 3 to 4 days back, she states that her granddaughter was tested positive for Covid and she probably got it from her. She has also been feeling lethargic with myalgias. She denies having any fevers or chills. Her main complaint is that she feels that her throat is closing off and it has been difficult for her to breathe or swallow. Patient denies having any abdominal pain nausea vomiting or diarrhea. No dysuria or hematuria. In the ER patient had soft tissue neck CT showing airway narrowing at the level of vocal cords measuring up to 3.7 mm and the left apical lung mass. Patient was given a dose of Solu-Medrol and is admitted for further management. Patient's vitals at the time of admission temperature of 99.1, heart rate 63, rest rate 22 saturating at 95% on room air. On reviewing her labs white count of 2.2, hemoglobin 15.4, platelets 145. Sodium 130, potassium 4.4, chloride 102, bicarb 19. BUN is 10 and creatinine 0.95. CRP of 14.2. On 09/29/2020-patient was seen and examined at the bedside. She states that her throat tightness feels much better compared to yesterday. As per discussion with nursing staff, patient had difficulty swallowing her pills this morning. She crushed it in applesauce and give it to the patient. Patient states that difficulty in breathing is better. No chest pain or palpitations. No abdominal pain nausea vomiting or diarrhea. No dysuria or hematuria. On reviewing her vitals T-max of 98.6, heart rate 60s to 70s, respiratory 20, blood pressure 129/70 saturating at 94% on 2 L of oxygen. On reviewing the labs from this morning white count of 2, hemoglobin 14.5, platelets 116. Sodium 133, potassium 5.1, chloride 106, bicarb 21, BUN 14, creatinine 0.92. AST 314, ALT 284. CRP 27. Active Medications Ascorbic Acid (Ascorbic Acid 500 Mg Tab) 1,000 mg PO DAILY [facility] Last Admin: 09/29/20 08:15 Dose: 1,000 mg Documented by: Cholecalciferol (Cholecalciferol 25 Mcg (1000 Iu) Tablet) 50 mcg PO DAILY [facility] Last Admin: 09/29/20 08:15 Dose: 50 mcg Documented by: Cyanocobalamin (Cyanocobalamin 500 Mcg Tab) 1,000 mcg PO DAILY [facility] Last Admin: 09/29/20 08:15 Dose: 1,000 mcg Documented by: Dexamethasone Sodium Phosphate (Dexamethasone Sod Phosphate 10 Mg/Ml 1 Ml Vial) 8 mg IV Q8HR [facility] Stop: 09/30/20 15:59 Last Admin: 09/29/20 21:44 Dose: 8 mg Documented by: Dexamethasone Sodium Phosphate (Dexamethasone Sod Phosphate 4 Mg/Ml 1 Ml Vial) 4 mg IV Q8HR [facility] Stop: 10/01/20 15:59 Dexamethasone Sodium Phosphate (Dexamethasone Sod Phosphate 4 Mg/Ml 1 Ml Vial) 2 mg IV BID [facility] Enoxaparin Sodium (Enoxaparin 40 Mg/0.4 Ml Syringe) 40 mg SQ DAILY [facility] Last Admin: 09/29/20 08:15 Dose: 40 mg Documented by: Sodium Chloride (Saline 0.9%) 1,000 mls @ 75 mls/hr IV .[id number] [facility] Last Admin: 09/29/20 16:43 Dose: Not Given Documented by: Levothyroxine Sodium (Levothyroxine 100 Mcg Tab) 100 mcg PO DAILY@0630 [facility] Last Admin: 09/29/20 05:11 Dose: 100 mcg Documented by: Morphine Sulfate (Morphine Sulfate 4 Mg/Ml Syringe) 4 mg IV Q4HR PRN PRN Reason: Severe Pain Last Admin: 09/29/20 06:25 Dose: 4 mg Documented by: Multivitamins (Multivitamins, Thera 1 Each Tab) 1 each PO DAILY [facility] Last Admin: 09/29/20 08:15 Dose: 1 each Documented by: Naloxone HCl (Naloxone 0.4 Mg/Ml 1 Ml Vial) 0.2 mg IV Q2M PRN PRN Reason: Opioid Reversal Ondansetron HCl (Ondansetron 4 Mg/2 Ml Vial) 4 mg IVP Q8H PRN PRN Reason: Nausea And Vomiting Last Admin: 09/28/20 12:12 Dose: 4 mg Documented by: Temazepam (Temazepam 15 Mg Cap) 15 mg PO HS PRN PRN Reason: Insomnia Last Admin: 09/29/20 21:44 Dose: 15 mg Documented by: Objective - Vital Signs Vital signs: Vital Signs Temp 97.7 F 09/29/20 08:00 Pulse 65 09/29/20 08:00 Resp 16 09/29/20 08:00 BP 122/70 09/29/20 08:00 Pulse Ox 98 09/29/20 08:00 Intake & Output 09/28/20 09/29/20 09/29/20 18:59 06:59 18:59 Intake Total 560 Balance 560 Weight 67.585 kg Intake: Intake, IV Titration 560 Amount Sodium Chloride 0.9% 1, 560 000 ml @ 75 mls/hr IV . [id number] [facility] Rx#:[id number] Other: Voiding Method Toilet Toilet # Voids 1 1 - Exam PHYSICAL EXAMINATION: GENERAL: The patient is alert and oriented x3, not in any acute distress. Elderly lying in bed HEENT: Pupils are round and equally reacting to light. EOMI. No scleral icterus. No pallor. Throat exam- she has dentures, could not visualize the back of her thraot. CARDIOVASCULAR: S1 and S2 present. PULMONARY: Bilateral breath sounds positive. Few crackles at the lower lung bases. ABDOMEN: Abdomen is soft. Nontender. Nondistended. Normal bowel sounds. MUSCULOSKELETAL: No joint swelling or deformity. EXTREMITIES: No cyanosis, clubbing, or pedal edema. NEUROLOGICAL: Gross neurological examination did not reveal any focal deficits. SKIN: No rashes. - Labs CBC & Chem 7: 09/29/20 09:10 09/29/20 11:48 Labs: Abnormal Lab Results - Last 24 Hours (Table) 09/29/20 Range/Units 09:10 WBC 2.0 L (3.8-10.6) k/uL Plt Count 116 L (150-450) k/uL Neutrophils # 1.0 L (1.3-7.7) k/uL Lymphocytes # 0.8 L (1.0-4.8) k/uL Assessment and Plan Assessment: ASSESSMENT COVID-19 pneumonia Sore throat Airway narrowing at the level of vocal cords Leukopenia with lymphopenia Hyponatremia-most likely hypovolemic Transaminitis Elevated inflammatory markers History of atrial fibrillation Right breast cancer Lymphoma on immunotherapy Hyperlipidemia Hypertension GERD Thyroid disorder Hard of hearing History of breast surgery History of hysterectomy History of bowel resection Former smoker PLAN: Patient symptoms of sore throat and chest tightness seem to be improving. She is requiring 2 L of oxygen to keep her saturations around 94%. Will consult ID Dr. Menendez. Patient to be continued on Decadron 6 mg daily. Lovenox for DVT prophylaxis. Oncology and ENT have been consulted. Overall prognosis is guarded secondary to her age and chronic medical conditions. Further recommendations to follow depending on the progress of the patient.
[2020-09-30] MEDS: SODIUM CHLORIDE 0.9% 1,000 ML IV SCH ×2 (01:22→17:55)
[2020-09-30] MEDS: LEVOTHYROXINE 100 MCG TAB PO SCH (05:25)
--- NOTE | 2020-09-30 05:46 | CONS ---
CONSULTATION DATE OF SERVICE: 09/29/2020 REASON FOR THE CONSULTATION: Respiratory distress with narrowing of the laryngeal airway. HISTORY OF PRESENT ILLNESS: The patient is a very pleasant 85-year-old female who states that approximately 3 or 4 days prior to coming to [facility] Emergency Room, she developed a sore throat and generalized body aches. She apparently had been previously diagnosed as being COVID-19 positive. She subsequently states that in the last approximately 24 hours prior to her admission, that she developed a significant sore throat, difficulty swallowing, and also a feeling as if her throat was closing off. That is to say, she was having some difficulty breathing. She also noticed that her voice became extremely hoarse. She was taken to the [facility] Emergency Room and was felt to be in respiratory distress. At that time she was given a dose of Solu-Medrol, oxygen, and a CT scan was performed. The CT scan, which I personally reviewed, showed evidence of narrowing of the airway at the level of the true vocal cords. This appears to be most likely due to edema and not secondary to any type of mass. The patient has history of lymphoma and is currently undergoing chemotherapy. In addition to this, there was a high suspicion for there being some slight inflammation of the upper trachea suggesting tracheitis. The patient has history of COPD and emphysema, but she quit smoking when she was approximately 20 years old. She was subsequently admitted to the hospital and has been given dexamethasone 6 mg, steroids. ALLERGIES: IODINE, RADIOCONTRAST DYE, CELEBREX, ATORVASTATIN, KEFLEX, and FLU VACCINE. HOME MEDICATIONS: Include [id number] Co-Q10, Synthroid, Ventolin inhaler, albuterol updraft treatments and extra-strength Tylenol tablets. REVIEW OF SYSTEMS: Positive with respect to the respiratory system in that the patient has history of COPD and emphysema. The metabolic endocrine system is positive in that the patient is known to be hypothyroid. The remainder of review of systems is unremarkable. PHYSICAL EXAMINATION: Patient is a very pleasant 85-year-old female who is alert, cooperative and well- oriented to time and place. She is not in any acute respiratory distress at this time and her voice sounds slightly hoarse, but the patient is not having any difficulty swallowing or airway difficulty. She states that the soreness of throat has decreased somewhat. On physical examination HEENT patient is normocephalic. Tympanic membranes are normal. Middle ear space is free of any fluid or infection. Pupils equal, round, react to light and accommodation. Extraocular movements within normal limits. Intranasal examination reveals moderate to severe septal deviation with compensatory hypertrophy of inferior turbinates. The inferior turbinates had a moderate amount of mucus on the mucous membranes and draining down the posterior pharynx. The mucus is clear. Examination of the oropharynx is unremarkable. I am not able to examine the larynx nor would I attempt to examine the patient's larynx in the hospital room if a patient who was having swelling of the vocal cords. In those cases, if it was necessary, then the patient would be examined in the surgical suite, in a controlled situation. Palpation of neck is negative for any neck masses or lymphadenopathy. Cranial nerves 2-12 and remainder of the head and neck exam is unremarkable. CHEST CARDIOVASCULAR: Both lung michelle are clear to percussion and auscultation. Patient is in regular sinus rhythm S1, S2 without any murmurs, S3s or S4s. ABDOMEN: There is no evidence any masses, megaly or tenderness. The abdomen is soft. SKIN: Unremarkable. Musculoskeletal, neurological and remainder of physical exam is unremarkable. IMPRESSION: Acute obstructive laryngitis with early tracheitis. PLAN: I am going to initiate this patient on a brief burst of steroids, specifically dexamethasone 8 mg IV t.i.d. for 24 hours, then dexamethasone 4 mg IV t.i.d. for 24 hours, and finally dexamethasone 2 mg IV b.i.d., then stop. This should help resolve the remaining laryngeal edema and any tracheal edema that the patient is experiencing. Unfortunately, this patient is definitely immunosuppressed. If there is any concern with regard to a bacterial infection, then certainly coverage with any type of oral antibiotic would be sufficient, however, I will leave that up to the primary physician to determine whether or not they wish to place her on a type of antibiotic or not. I would certainly recommend keeping the patient through Thursday, but if she is feeling better by Thursday, then certainly she would be able to be discharged. The brief burst of dexamethasone that she is on could certainly be interrupted at that time, even if she has not completed the full course, without any concern for problems. I am not sure whether or not the COVID-19 had any role in this patient's laryngitis. Certainly, viruses as well as bacteria are known to cause laryngitis and certainly because the patient is immune compromised, she would be a definite candidate for something like that happening, especially since the COVID-19 seems to really affect the respiratory tract. I personally review the patient's CT scan and agree that all of her airway obstruction was at the level of both the true vocal cords and there was no evidence of any masses in the neck/larynx that would necessitate any type of surgical intervention at this time. I understand that she does have a mass/lesion in the upper lung field on the right side. I wanted to take this opportunity to thank you for allowing me to assist in the care of your patient. I will see her again tomorrow on 09/30/2020, to make sure she is doing well. If she is, then at that point, I will sign off of her case. If you need to re-consult me, feel free to do so. Thank you again for allowing me to participate in the care of your patient. JEAN-PAUL / KULWANT: [id number] / ABUNDIO
[2020-09-30] MEDS: ENOXAPARIN 40 MG/0.4 ML SYRINGE SQ SCH (08:24)
[2020-09-30] MEDS: MULTIVITAMINS, THERA 1 EACH TAB PO SCH (08:24)
[2020-09-30] MEDS: CYANOCOBALAMIN 500 MCG TAB PO SCH (08:24)
[2020-09-30] MEDS: CHOLECALCIFEROL 25 MCG (1000 IU) TABLET PO SCH (08:24)
[2020-09-30] MEDS: ASCORBIC ACID 500 MG TAB PO SCH (08:24)
[2020-09-30] MEDS: ONDANSETRON 4 MG/2 ML VIAL IVP PRN (08:25)
[2020-09-30] MEDS: DEXAMETHASONE SOD PHOSPHATE 10 MG/ML 1 ML VIAL IV SCH (08:25)
[2020-09-30 08:56] LABS: Basophils # (A) 0 X 10*3/uL (0.00-0.10); Basophils % (A) 0 %; Eosinophils # (A) 0 X 10*3/uL (0.04-0.35); Eosinophils % (A) 0 %; HCT 38.4 % (37.2-46.3); HGB 12.4 g/dL (12.0-15.0); Lymphocytes % (A) 30.5 %; MCH 30.4 pg (27.0-32.0); MCHC 32.3 g/dL (32.0-37.0); MCV 94.1 fL (80.0-97.0); Mean Platelet Volume 10.3 fL (9.5-12.2); Monocytes # (A) 0.31 X 10*3/uL (0.20-1.00); Monocytes % (A) 15.7 %; Neutrophils # (A) 1.03 X 10*3/uL (1.80-7.70); Neutrophils % (A) 52.3 %; Platelet Count 105 X 10*3/uL (140-440); RBC 4.08 X 10*6/uL (4.10-5.20); RDW 12.1 % (11.5-14.5); WBC 1.97 X 10*3/uL (4.50-10.00)
[2020-09-30 09:17] LABS: African American GFR (CKD) 67.6 (60.0-200.0); Albumin 3.5 g/dL (3.80-4.90); Albumin/Globulin Ratio 2.06 (1.60-3.17); BUN/Creat Ratio 16.67 Ratio (12.00-20.00); C Reactive Protein 0.9 mg/dL (0.0-0.8); Calcium 8.3 mg/dL (8.7-10.3); Globulin 1.7 g/dL (1.6-3.3); Non-African American GFR(CKD) 58.3 (60.0-200.0); Potassium 4.3 mmol/L (3.5-5.5); Total Bilirubin 0.3 mg/dL (0.3-1.2); Total Protein 5.2 g/dL (6.2-8.2)
--- NOTE | 2020-09-30 15:55 | P.PN ---
Subjective Progress Note Date: 09/30/20 Principal diagnosis: COVID Pneumonia Ms. Dudley is a 85-year-old female with a past medical history of atrial fibrillation, GERD, hypertension, hyperlipidemia, osteoarthritis, thyroid disorder, and breast cancer, melanoma of the face, osteoporosis, lymphoma receiving immunotherapy coming to the hospital stating that she has a sore throat and feels like that it is closing off on her. Patient states that she was diagnosed with Covid infection 3 to 4 days back, she states that her granddaughter was tested positive for Covid and she probably got it from her. She has also been feeling lethargic with myalgias. She denies having any fevers or chills. Her main complaint is that she feels that her throat is closing off and it has been difficult for her to breathe or swallow. Patient denies having any abdominal pain nausea vomiting or diarrhea. No dysuria or hematuria. In the ER patient had soft tissue neck CT showing airway narrowing at the level of vocal cords measuring up to 3.7 mm and the left apical lung mass. Patient was given a dose of Solu-Medrol and is admitted for further management. Patient's vitals at the time of admission temperature of 99.1, heart rate 63, rest rate 22 saturating at 95% on room air. On reviewing her labs white count of 2.2, hemoglobin 15.4, platelets 145. Sodium 130, potassium 4.4, chloride 102, bicarb 19. BUN is 10 and creatinine 0.95. CRP of 14.2. On 09/29/2020-patient was seen and examined at the bedside. She states that her throat tightness feels much better compared to yesterday. As per discussion with nursing staff, patient had difficulty swallowing her pills this morning. She crushed it in applesauce and give it to the patient. Patient states that difficulty in breathing is better. No chest pain or palpitations. No abdominal pain nausea vomiting or diarrhea. No dysuria or hematuria. On reviewing her vitals T-max of 98.6, heart rate 60s to 70s, respiratory 20, blood pressure 129/70 saturating at 94% on 2 L of oxygen. On reviewing the labs from this morning white count of 2, hemoglobin 14.5, platelets 116. Sodium 133, potassium 5.1, chloride 106, bicarb 21, BUN 14, creatinine 0.92. AST 314, ALT 284. CRP 27. On 09/30/2020 - patient was seen and examined at bedside. On reviewing the overnight telemetry, patient was found to have bradycardia heart rate as low as 30 in sinus rhythm, and this happened during her sleep. Patient denies having any chest pain or palpitations. She has mild difficulty in breathing along with mild dry cough. No abdominal pain nausea vomiting or diarrhea. No dysuria or hematuria. On reviewing her vitals T-max of 98.9, heart rate 30s to 50s, respiratory rate 18, blood pressure 1 32 x 68, saturating at 94% on room air. On reviewing her labs- white count of 1.97, hemoglobin 12.4, platelets 105. Sodium 139, potassium 4.3, chloride 108, bicarbonate 25, BUN 15, creatinine 0.9. AST 101, ALT 194, LDH 208, CRP 0.9. Active Medications Ascorbic Acid (Ascorbic Acid 500 Mg Tab) 1,000 mg PO DAILY [facility] Last Admin: 09/30/20 08:24 Dose: 1,000 mg Documented by: Cholecalciferol (Cholecalciferol 25 Mcg (1000 Iu) Tablet) 50 mcg PO DAILY [facility] Last Admin: 09/30/20 08:24 Dose: 50 mcg Documented by: Cyanocobalamin (Cyanocobalamin 500 Mcg Tab) 1,000 mcg PO DAILY [facility] Last Admin: 09/30/20 08:24 Dose: 1,000 mcg Documented by: Dexamethasone Sodium Phosphate (Dexamethasone Sod Phosphate 10 Mg/Ml 1 Ml Vial) 8 mg IV Q8HR [facility] Stop: 09/30/20 15:59 Last Admin: 09/30/20 08:25 Dose: 8 mg Documented by: Dexamethasone Sodium Phosphate (Dexamethasone Sod Phosphate 4 Mg/Ml 1 Ml Vial) 4 mg IV Q8HR [facility] Stop: 10/01/20 15:59 Dexamethasone Sodium Phosphate (Dexamethasone Sod Phosphate 4 Mg/Ml 1 Ml Vial) 2 mg IV BID [facility] Enoxaparin Sodium (Enoxaparin 40 Mg/0.4 Ml Syringe) 40 mg SQ DAILY [facility] Last Admin: 09/30/20 08:24 Dose: 40 mg Documented by: Sodium Chloride (Saline 0.9%) 1,000 mls @ 75 mls/hr IV .[id number] [facility] Last Admin: 09/30/20 01:22 Dose: 75 mls/hr Documented by: Levothyroxine Sodium (Levothyroxine 100 Mcg Tab) 100 mcg PO DAILY@0630 [facility] Last Admin: 09/30/20 05:25 Dose: 100 mcg Documented by: Morphine Sulfate (Morphine Sulfate 4 Mg/Ml Syringe) 4 mg IV Q4HR PRN PRN Reason: Severe Pain Last Admin: 09/29/20 06:25 Dose: 4 mg Documented by: Multivitamins (Multivitamins, Thera 1 Each Tab) 1 each PO DAILY [facility] Last Admin: 09/30/20 08:24 Dose: 1 each Documented by: Naloxone HCl (Naloxone 0.4 Mg/Ml 1 Ml Vial) 0.2 mg IV Q2M PRN PRN Reason: Opioid Reversal Ondansetron HCl (Ondansetron 4 Mg/2 Ml Vial) 4 mg IVP Q8H PRN PRN Reason: Nausea And Vomiting Last Admin: 09/30/20 08:25 Dose: 4 mg Documented by: Temazepam (Temazepam 15 Mg Cap) 15 mg PO HS PRN PRN Reason: Insomnia Last Admin: 09/29/20 21:44 Dose: 15 mg Documented by: Objective - Vital Signs Vital signs: Vital Signs Temp 97.9 F 09/30/20 07:25 Pulse 35 L 09/30/20 07:25 Resp 18 09/30/20 07:25 BP 132/68 09/30/20 07:25 Pulse Ox 94 L 09/30/20 07:25 Intake & Output 09/29/20 09/30/20 09/30/20 18:59 06:59 18:59 Other: Voiding Method Toilet Toilet Toilet # Voids 1 2 2 - Exam PHYSICAL EXAMINATION: GENERAL: The patient is alert and oriented x3, not in any acute distress. HEENT: Pupils are round and equally reacting to light. EOMI. No scleral icterus. No pallor. Throat exam- she has dentures, could not visualize the back of her thraot. CARDIOVASCULAR: S1 and S2 present. Bradycardia PULMONARY: Bilateral breath sounds positive. Few crackles at the lower lung bases. ABDOMEN: Abdomen is soft. Nontender. Nondistended. Normal bowel sounds. MUSCULOSKELETAL: No joint swelling or deformity. EXTREMITIES: No cyanosis, clubbing, or pedal edema. NEUROLOGICAL: Gross neurological examination did not reveal any focal deficits. SKIN: No rashes. - Labs CBC & Chem 7: 09/30/20 06:35 09/30/20 06:35 Labs: Abnormal Lab Results - Last 24 Hours (Table) 09/30/20 09/30/20 Range/Units 06:35 06:35 WBC 1.97 L (4.50-10.00) X 10*3/uL RBC 4.08 L (4.10-5.20) X 10*6/uL Plt Count 105 L (140-440) X 10*3/uL Neutrophils # 1.03 L (1.80-7.70) X 10*3/uL Lymphocytes # 0.60 L (0.90-5.00) X 10*3/uL Eosinophils # 0 L (0.04-0.35) X 10*3/uL Est GFR (CKD-EPI)NonAf 58.3 L (60.0-200.0) Glucose 136 H (70-110) mg/dL Calcium 8.3 L (8.7-10.3) mg/dL AST 101 H (13-35) U/L ALT 194 H (8-44) U/L C-Reactive Protein 0.9 H (0.0-0.8) mg/dL Total Protein 5.2 L (6.2-8.2) g/dL Albumin 3.50 L (3.80-4.90) g/dL Assessment and Plan Assessment: ASSESSMENT COVID-19 pneumonia Acute obstructive Laryngitis with early tracheitis Leukopenia with lymphopenia Bradycardia Hyponatremia- resolved Transaminitis - trending down Elevated inflammatory markers History of atrial fibrillation Right breast cancer Lymphoma on immunotherapy Hyperlipidemia Hypertension GERD Thyroid disorder Hard of hearing History of breast surgery History of hysterectomy History of bowel resection Former smoker PLAN: Patient was evaluated by ENT Dr. Diaz and started on dexamethasone 8 mg IV 3 times a day yesterday and he suggested a taper. Patient will be getting 4 mg IV 3 times a day today. She should be continued on 6 mg dexamethasone daily to cover for COVID pneumonia for a total of 10 day course. This was discussed in detail with the pharmacy today on the phone. She is currently sat urating at 95% on room air. ID Dr. Menendez consulted for antibiotic stewardship in view of her immunocompromised status and COVID. Lovenox for DVT prophylaxis. As the patient has bradycardia heart rate as low as 34 on the telemetry, during her sleep, will consult cardiology for any further recomm endations. Overall prognosis is guarded secondary to her age and chronic medical conditions. Further recommendations to follow depending on the progress of the patient.
[2020-09-30] MEDS: DEXAMETHASONE SOD PHOSPHATE 4 MG/ML 1 ML VIAL IV SCH ×2 (17:55→21:49)
[2020-09-30] MEDS ORDERED: REMDESIVIR 200 MG in SODIUM CHLORIDE 0.9% 250 ML IVPB ONE (18:00)
--- NOTE | 2020-09-30 20:27 | CONS ---
CONSULTATION DATE OF SERVICE: 09/30/2020 REASON FOR CONSULTATION: COVID-19 infection. HISTORY OF PRESENT ILLNESS: The patient is an 85-year-old female with past medical history significant for lymphoma, history of lung cancer for which the patient is currently on chemo. He did have left chest wall MediPort. The patient presented to the [facility] ER on September 28, for evaluation of symptoms of throat was closing off. The patient symptoms started the day before presentation to hospital. The symptoms started when it was time to go to sleep, woke up in the morning and feeling like his throat was closing off. The patient was also complaining of difficulty in breathing and swallowing. Did have some nausea but no vomiting. The patient denies having any chest pain, shortness of breath. Minimal cough but not bringing up any sputum. No abdominal pain. Did have some diarrhea. With concern for possible allergic reaction, the patient presented to [facility] 2 days ago. The patient on arrival to the ER did have a low-grade fever of 99.1 degrees Fahrenheit. The patient noticed to be hypoxic. At one point, she was on room air. She is currently 93% on room air. The patient did have leukopenia as well as lymphopenia. D-dimer was normal. Liver enzymes are elevated. CRP was elevated. LDH of 149. The patient did have a chest x-ray with evidence of lower zone developing infiltrate. Did have a CT of the soft tissue of the neck which shows at the level of adding up to 3.7 mm possible etiology left apical lung mass. The patient has been evaluated by the ENT. The patient has been started on steroids and subsequently did have improvement in her symptoms. Infectious disease was consulted with a positive COVID test and need for Remdesivir therapy. REVIEW OF SYSTEMS: Positive points have been mentioned in HPI. Rest of systems are negative. PAST MEDICAL HISTORY: Significant for lymphoma, COPD, atrial fibrillation, history of lung cancer, osteoarthritis, pneumonia, hypothyroidism. PAST SURGICAL HISTORY: Appendectomy, bowel resection, breast surgery, cholecystectomy, hysterectomy, and Port- A-catheter placement for chemo. SOCIAL HISTORY: Remote history of smoking. No drinking or drug use. FAMILY HISTORY: Sister with history of breast cancer and mother history of lymphoma. ALLERGIES: TO IODINATED CONTRAST DYE, CEPHALEXIN, LIPITOR AND CELEBREX. MEDICATIONS: The patient is currently on vitamin C, vitamin D3, vitamin B1, dexamethasone, Lovenox, Synthroid, morphine sulfate, Theragran, Narcan, Zofran, Restoril, and zinc sulfate. PHYSICAL EXAMINATION: Blood pressure 129/74, pulse of 50, temperature 98.9. She is 93% on room air. General description is an elderly female lying in bed in no distress. HEENT: Examination shows no pallor or scleral icterus. Oral mucous membranes dry. NECK: Trachea central. No thyromegaly. LUNGS: Unlabored breathing, decreased breath sounds. No wheeze. HEART S1, S2. Regular rate and rhythm. ABDOMEN soft, no tenderness. No guarding. No rigidity. EXTREMITIES: No edema of the feet. SKIN examination: No rash or mass palpable. NEUROLOGICAL: Patient is awake, alert, oriented times three. Mood and affect normal. LABS: Hemoglobin 12.4, white count 1.97, BUN of 15, creatinine 0.9 and electrolytes have been normal. Liver enzymes are elevated. LDH was elevated as well as CRP. Covid testing is positive. Chest x-ray with developing infiltrate. DIAGNOSTIC IMPRESSION/PLAN: Patient admitted to the hospital with increasing shortness of breath in addition to the patient's symptom of throat closing up. She did have abnormal CT with some narrowing that was seen and has been seen by an ENT, started on dexamethasone. The patient does have developing infiltrate with underlying chronic obstructive pulmonary disease, symptom onset of the 25th with component of COVID-19 pneumonia, acute and high risk of progression to respiratory failure. PLAN: 1. The patient will be started on Remdesivir per protocol 200 mg x1 followed by 100 mg daily. Heart rate needs to be monitored closely. Currently not on any beta blockers. 2. Lovenox, dexamethasone, zinc and vitamin C. 3. Droplet isolation and respiratory support. 4. We will follow on clinical condition and culture to further adjust medication if needed. Thank you for this consultation. Will follow this patient along with you. MMODL / IJN: [id number] /
[2020-09-30] MEDS: TEMAZEPAM 15 MG CAP PO PRN (21:49)
--- NOTE | 2020-10-01 04:17 | PN ---
PROGRESS NOTE DATE OF SERVICE: 09/30/2020. SUBJECTIVE: Vital sounds are stable. The patient is afebrile. The patient states that she feels much better. She feels that her voice is just about back to normal. She is not having difficulty swallowing. Her sore throat is minimal at this time. She is also not complaining of any difficulty with respect to breathing or her airway. OBJECTIVE: HEENT patient is normocephalic. Examination of oropharynx, palpation of neck etc and remainder of the head and neck exam all within normal limits. ASSESSMENT: Severe acute laryngitis with partial obstruction of the laryngeal airway, tracheitis, resolving. PLAN: The dexamethasone burst is helping the patient significantly and her airway is just about back to normal.Dexamethasone is the "work horse" in most ENT cases compared to other steroids. I do not believe that she is having any airway problems at this time, nor do I feel that she is going to have any in the immediate future. Therefore, if the primary service feels that appropriate, the patient, from an ENT standpoint, can be safely discharged home tomorrow(10/01/2020). If she is still in the middle of the some of the steroid treatment, because the dose is so low it is safe to abruptly stop this without concern of any type of problems. In addition, I would wonder whether not this patient would be a candidate for Remdesivir or would that be contraindicated because of her lymphoma and her current chemotherapy treatment. I will not need to see this patient for followup in my office, but again I will remain available if I need to be reconsulted for this patient. I want to take this opportunity to thank you for allowing me to assist in the care of this pleasant patient. If I could be of any further assistance, please feel free to call my office. MMODL / IJN: [id number] / ABUNDIO
[2020-10-01] MEDS: SODIUM CHLORIDE 0.9% 1,000 ML IV SCH ×2 (05:22→19:39)
[2020-10-01] MEDS: LEVOTHYROXINE 100 MCG TAB PO SCH (05:23)
[2020-10-01] MEDS: MULTIVITAMINS, THERA 1 EACH TAB PO SCH (09:00)
[2020-10-01] MEDS: CYANOCOBALAMIN 500 MCG TAB PO SCH (09:00)
[2020-10-01] MEDS: ASCORBIC ACID 500 MG TAB PO SCH (09:00)
[2020-10-01] MEDS: ZINC SULFATE 220 MG CAP PO SCH (09:01)
[2020-10-01] MEDS: DEXAMETHASONE SOD PHOSPHATE 4 MG/ML 1 ML VIAL IV SCH ×2 (09:01→17:22)
[2020-10-01] MEDS: ENOXAPARIN 40 MG/0.4 ML SYRINGE SQ SCH (09:01)
[2020-10-01] MEDS: CHOLECALCIFEROL 25 MCG (1000 IU) TABLET PO SCH (09:01)
[2020-10-01 10:26] LABS: Basophils # (A) 0.01 X 10*3/uL (0.00-0.10); Basophils % (A) 0.4 %; Eosinophils # (A) 0 X 10*3/uL (0.04-0.35); Eosinophils % (A) 0 %; HCT 35.7 % (37.2-46.3); HGB 11.7 g/dL (12.0-15.0); Lymphocytes # (A) 0.59 X 10*3/uL (0.90-5.00); Lymphocytes % (A) 21.1 %; MCHC 32.8 g/dL (32.0-37.0); MCV 94.7 fL (80.0-97.0); Mean Platelet Volume 10.9 fL (9.5-12.2); Monocytes # (A) 0.51 X 10*3/uL (0.20-1.00); Monocytes % (A) 18.2 %; Neutrophils # (A) 1.66 X 10*3/uL (1.80-7.70); Neutrophils % (A) 59.2 %; Platelet Count 118 X 10*3/uL (140-440); RBC 3.77 X 10*6/uL (4.10-5.20); RDW 12.3 % (11.5-14.5)
[2020-10-01 12:58] LABS: African American GFR (CKD) 67.6 (60.0-200.0); Albumin 3.2 g/dL (3.80-4.90); Anion Gap 7.2 mmol/L (4.00-12.00); BUN/Creat Ratio 17.78 Ratio (12.00-20.00); Calcium 8.1 mg/dL (8.7-10.3); Carbon Dioxide 20.8 mmol/L (21.6-31.8); Globulin 1.6 g/dL (1.6-3.3); Magnesium 2.1 mg/dL (1.5-2.4); Non-African American GFR(CKD) 58.3 (60.0-200.0); Phosphorus 3.4 mg/dL (2.4-5.1); Total Bilirubin 0.2 mg/dL (0.3-1.2); Total Protein 4.8 g/dL (6.2-8.2); Uric Acid 4.2 mg/dL (2.9-7.7)
--- NOTE | 2020-10-01 14:39 | P.PN ---
Subjective Progress Note Date: 10/01/20 COVID Pneumonia Ms. Dudley is a 85-year-old female with a past medical history of atrial fibrillation, GERD, hypertension, hyperlipidemia, osteoarthritis, thyroid disorder, and breast cancer, melanoma of the face, osteoporosis, lymphoma receiving immunotherapy coming to the hospital stating that she has a sore throat and feels like that it is closing off on her. Patient states that she was diagnosed with Covid infection 3 to 4 days back, she states that her granddaughter was tested positive for Covid and she probably got it from her. She has also been feeling lethargic with myalgias. She denies having any fevers or chills. Her main complaint is that she feels that her throat is closing off and it has been difficult for her to breathe or swallow. Patient denies having any abdominal pain nausea vomiting or diarrhea. No dysuria or hematuria. In the ER patient had soft tissue neck CT showing airway narrowing at the level of vocal cords measuring up to 3.7 mm and the left apical lung mass. Patient was given a dose of Solu-Medrol and is admitted for further management. Patient's vitals at the time of admission temperature of 99.1, heart rate 63, rest rate 22 saturating at 95% on room air. On reviewing her labs white count of 2.2, hemoglobin 15.4, platelets 145. Sodium 130, potassium 4.4, chloride 102, bicarb 19. BUN is 10 and creatinine 0.95. CRP of 14.2. On 09/29/2020-patient was seen and examined at the bedside. She states that her throat tightness feels much better compared to yesterday. As per discussion with nursing staff, patient had difficulty swallowing her pills this morning. She crushed it in applesauce and give it to the patient. Patient states that difficulty in breathing is better. No chest pain or palpitations. No abdominal pain nausea vomiting or diarrhea. No dysuria or hematuria. On reviewing her vitals T-max of 98.6, heart rate 60s to 70s, respiratory 20, blood pressure 129/70 saturating at 94% on 2 L of oxygen. On reviewing the labs from this morning white count of 2, hemoglobin 14.5, platelets 116. Sodium 133, potassium 5.1, chloride 106, bicarb 21, BUN 14, creatinine 0.92. AST 314, ALT 284. CRP 27. On 09/30/2020 - patient was seen and examined at bedside. On reviewing the overnight telemetry, patient was found to have bradycardia heart rate as low as 30 in sinus rhythm, and this happened during her sleep. Patient denies having any chest pain or palpitations. She has mild difficulty in breathing along with mild dry cough. No abdominal pain nausea vomiting or diarrhea. No dysuria or hematuria. On reviewing her vitals T-max of 98.9, heart rate 30s to 50s, respiratory rate 18, blood pressure 1 32 x 68, saturating at 94% on room air. On reviewing her labs- white count of 1.97, hemoglobin 12.4, platelets 105. Sodium 139, potassium 4.3, chloride 108, bicarbonate 25, BUN 15, creatinine 0.9. AST 101, ALT 194, LDH 208, CRP 0.9. 10/01/2020 Patient is seen and evaluated in follow-up currently sitting up in the chair status post is working with physical therapy. Patient will require a walker for gait dysfunction. Patient is currently maintained on 2 L of oxygen via nasal cannula at 96% oxygenation. Patient states she has had oxygen at home in the past although returned it as it was not needed. Patient may need home oxygen was stabilized and discharged. Patient is being followed by infectious disease and currently maintained on Remdesivir along with dexamethasone, Lovenox, vitamin C and zinc supplements and will continue at this time. Patient was seen and evaluated by ENT Dr. Diaz she had some increase swelling and edema noted in her airway passage although has improved she states significantly with steroids. Patient continues to have some tenderness of the oral pharynx although states is tolerating diet with no difficulties in swallowing. Inflammatory markers trending down and liver functions trending down as well. Review of systems: Constitutional: No reports of fatigue, fever, or chills Cardiovascular: No reports of chest pain or palpitations Respiratory: Reports mild shortness of breath or cough GI: No reports of nausea, vomiting, or diarrhea : No reports of dysuria or retention Neurovascular: No reports of weakness or numbness All medications have been reviewed Objective - Vital Signs Vital signs: Vital Signs Temp 97.8 F 10/01/20 07:15 Pulse 60 10/01/20 07:15 Resp 24 10/01/20 07:15 BP 115/51 10/01/20 07:15 Pulse Ox 96 10/01/20 07:15 Intake & Output 09/30/20 10/01/20 10/01/20 18:59 06:59 18:59 Intake Total 240 Balance 240 Intake: Oral 240 Other: Voiding Method Toilet Toilet Toilet # Voids 2 1 - Exam GENERAL: The patient is alert and oriented x3, not in any acute distress. HEENT: Pupils are round and equally reacting to light. EOMI. No scleral icterus. No pallor. Throat exam- she has dentures, swelling improved CARDIOVASCULAR: S1 and S2 present. Bradycardia PULMONARY: Bilateral breath sounds diminished with some scattered rhonchi noted. ABDOMEN: Abdomen is soft. Nontender. Nondistended. Normal bowel sounds. MUSCULOSKELETAL: No joint swelling or deformity. EXTREMITIES: No cyanosis, clubbing, or pedal edema. NEUROLOGICAL: Gross neurological examination did not reveal any focal deficits. SKIN: No rashes. - Labs CBC & Chem 7: 10/01/20 06:59 10/01/20 06:59 Labs: Abnormal Lab Results - Last 24 Hours (Table) 10/01/20 Range/Units 06:59 WBC 2.80 L (4.50-10.00) X 10*3/uL RBC 3.77 L (4.10-5.20) X 10*6/uL Hgb 11.7 L (12.0-15.0) g/dL Hct 35.7 L (37.2-46.3) % Plt Count 118 L (140-440) X 10*3/uL Neutrophils # 1.66 L (1.80-7.70) X 10*3/uL Lymphocytes # 0.59 L (0.90-5.00) X 10*3/uL Eosinophils # 0 L (0.04-0.35) X 10*3/uL Assessment and Plan Assessment: COVID-19 pneumonia Acute obstructive Laryngitis with early tracheitis Leukopenia with lymphopenia Bradycardia Hyponatremia- resolved Transaminitis - trending down Elevated inflammatory markers History of atrial fibrillation Right breast cancer Lymphoma on immunotherapy Hyperlipidemia Hypertension GERD Thyroid disorder Hard of hearing History of breast surgery History of hysterectomy History of bowel resection Former smoker PLAN: Patient has been evaluated by ENT Dr. Diaz and started on dexamethasone taper and will finish and continue on dexamethasone 6 mg daily for Covid pneumonia. Infectious disease consulted and following and patient has been started on Remdesivir and will continue to monitor closely. Patient is following with oncology outpatient she is actively receiving treatment. Patient is also maintained on Lovenox along with vitamin C and zinc supplements and will continue. Continue to monitor airway. Patient had some brief episodes of bradycardia during rest and is asymptomatic and will continue telemetry monitoring. She denies any chest pain, shortness of breath, or palpitations. Patient was seen and evaluated by PT/OT therapy and will require a walker upon discharge for steady gait. Overall prognosis is guarded secondary to her age and chronic medical conditions.
[2020-10-01] MEDS ORDERED: REMDESIVIR 100 MG in SODIUM CHLORIDE 0.9% 250 ML IVPB SCH (18:00)
[2020-10-01] MEDS: TEMAZEPAM 15 MG CAP PO PRN (21:31)
[2020-10-01] MEDS: MORPHINE SULFATE 4 MG/ML SYRINGE IV PRN (21:41)
--- NOTE | 2020-10-01 21:46 | P.PN ---
Subjective Progress Note Date: 10/01/20 Principal diagnosis: Covid, Respiratory Failure WBC are improving and hemoglobin stable. Awaiting IgG level for potential additional immune support with IVIG during viral infection. Objective - Vital Signs Vital signs: Vital Signs Temp 98.1 F 10/01/20 20:00 Pulse 51 L 10/01/20 20:00 Resp 20 10/01/20 20:00 BP 141/51 10/01/20 20:00 Pulse Ox 96 10/01/20 20:00 Intake & Output 10/01/20 10/01/20 10/02/20 06:59 18:59 06:59 Intake Total 480 Balance 480 Intake: Oral 480 Other: Voiding Method Toilet Toilet # Voids 1 1 # Bowel Movements 1 - Constitutional General appearance: Present: cooperative, mild distress - EENT Eyes: Present: EOMI ENT: Present: hard of hearing, NA/AT, normal oropharynx - Neck Neck: Present: lymphadenopathy - Respiratory Respiratory: bilateral: diminished, rhonchi, wheezing - Cardiovascular Rhythm: regularly irregular - Gastrointestinal General gastrointestinal: Present: soft - Integumentary Integumentary: Present: pale - Neurologic Neurologic: Present: CNII-XII intact - Musculoskeletal Musculoskeletal: Present: generalized weakness - Psychiatric Psychiatric: Present: A&O x's 3 - Labs CBC & Chem 7: 10/01/20 06:59 10/01/20 06:59 Labs: Abnormal Lab Results - Last 24 Hours (Table) 10/01/20 10/01/20 Range/Units 06:59 06:59 WBC 2.80 L (4.50-10.00) X 10*3/uL RBC 3.77 L (4.10-5.20) X 10*6/uL Hgb 11.7 L (12.0-15.0) g/dL Hct 35.7 L (37.2-46.3) % Plt Count 118 L (140-440) X 10*3/uL Neutrophils # 1.66 L (1.80-7.70) X 10*3/uL Lymphocytes # 0.59 L (0.90-5.00) X 10*3/uL Eosinophils # 0 L (0.04-0.35) X 10*3/uL Carbon Dioxide 20.8 L (21.6-31.8) mmol/L Est GFR (CKD-EPI)NonAf 58.3 L (60.0-200.0) Glucose 115 H (70-110) mg/dL Calcium 8.1 L (8.7-10.3) mg/dL Total Bilirubin 0.2 L (0.3-1.2) mg/dL AST 45 H (13-35) U/L ALT 125 H (8-44) U/L Total Protein 4.8 L (6.2-8.2) g/dL Albumin 3.20 L (3.80-4.90) g/dL Assessment and Plan (1) Acute respiratory insufficiency Current Visit: Yes Status: Acute Code(s): R06.89 - OTHER ABNORMALITIES OF BREATHING SNOMED Code(s): 631728730 (2) COVID-19 Current Visit: Yes Status: Acute Code(s): U07.1 - COVID-19 SNOMED Code(s): 910734892 (3) Lymphoma Current Visit: Yes Status: Acute Code(s): C85.90 - NON-HODGKIN LYMPHOMA, UNSPECIFIED, UNSPECIFIED SITE SNOMED Code(s): 697064878 Plan: Check for additional support of IVIG if IgG decreased COntinue supportive care If ANC less than 1 will begin GCSF.
--- NOTE | 2020-10-02 00:01 | PN ---
PROGRESS NOTE DATE OF SERVICE: 10/01/2020. REASON FOR FOLLOWUP: Covid 19 pneumonia. INTERVAL HISTORY: Patient is currently afebrile. The patient is breathing comfortably. He denies having any chest pain. Occasional cough. No nausea, vomiting. No abdominal pain or diarrhea. PHYSICAL EXAMINATION: Blood pressure 141/51 with a pulse of 81, temperature 98.1. She is 97% on 2 L nasal cannula. General description is an elderly female lying in bed in no distress. Respiratory system: Unlabored breathing, decreased breath sounds. Heart S1, S2. Regular. Abdomen: Soft, no tenderness. LAB: Hemoglobin 11.1, white count 2.8, BUN of 16, creatinine 0.9. DIAGNOSTIC IMPRESSION AND PLAN: Patient with acute COVID-19 pneumonia. The patient was on hold because of bradyarrhythmia. Cardiology was supposed to be consulted. However that was not done. This morning, the patient heart rate has normalized. Remdesivir has been started that will continue along with dexamethasone and along with zinc. We will monitor clinical course closely. Continue supportive care. MMODL / IJN: [id number] /
[2020-10-02] MEDS: LEVOTHYROXINE 100 MCG TAB PO SCH (05:23)
[2020-10-02] MEDS: ENOXAPARIN 40 MG/0.4 ML SYRINGE SQ SCH (08:09)
[2020-10-02] MEDS: DEXAMETHASONE SOD PHOSPHATE 4 MG/ML 1 ML VIAL IV SCH (08:10)
[2020-10-02] MEDS: ZINC SULFATE 220 MG CAP PO SCH (08:10)
[2020-10-02] MEDS: ASCORBIC ACID 500 MG TAB PO SCH (08:10)
[2020-10-02] MEDS: CYANOCOBALAMIN 500 MCG TAB PO SCH (08:10)
[2020-10-02] MEDS: CHOLECALCIFEROL 25 MCG (1000 IU) TABLET PO SCH (08:10)
[2020-10-02] MEDS: MULTIVITAMINS, THERA 1 EACH TAB PO SCH (08:10)
[2020-10-02] MEDS: ONDANSETRON 4 MG/2 ML VIAL IVP PRN (10:28)
[2020-10-02] MEDS: REMDESIVIR 100 MG in SODIUM CHLORIDE 0.9% 250 ML IVPB SCH (12:28)
--- NOTE | 2020-10-02 14:30 | P.PN ---
Subjective COVID Pneumonia Ms. Dudley is a 85-year-old female with a past medical history of atrial fibrillation, GERD, hypertension, hyperlipidemia, osteoarthritis, thyroid disorder, and breast cancer, melanoma of the face, osteoporosis, lymphoma receiving immunotherapy coming to the hospital stating that she has a sore throat and feels like that it is closing off on her. Patient states that she was diagnosed with Covid infection 3 to 4 days back, she states that her granddaughter was tested positive for Covid and she probably got it from her. She has also been feeling lethargic with myalgias. She denies having any fevers or chills. Her main complaint is that she feels that her throat is closing off and it has been difficult for her to breathe or swallow. Patient denies having any abdominal pain nausea vomiting or diarrhea. No dysuria or hematuria. In the ER patient had soft tissue neck CT showing airway narrowing at the level of vocal cords measuring up to 3.7 mm and the left apical lung mass. Patient was given a dose of Solu-Medrol and is admitted for further management. Patient's vitals at the time of admission temperature of 99.1, heart rate 63, rest rate 22 saturating at 95% on room air. On reviewing her labs white count of 2.2, hemoglobin 15.4, platelets 145. Sodium 130, potassium 4.4, chloride 102, bicarb 19. BUN is 10 and creatinine 0.95. CRP of 14.2. On 09/29/2020-patient was seen and examined at the bedside. She states that her throat tightness feels much better compared to yesterday. As per discussion with nursing staff, patient had difficulty swallowing her pills this morning. She crushed it in applesauce and give it to the patient. Patient states that difficulty in breathing is better. No chest pain or palpitations. No abdominal pain nausea vomiting or diarrhea. No dysuria or hematuria. On reviewing her vitals T-max of 98.6, heart rate 60s to 70s, respiratory 20, blood pressure 129/70 saturating at 94% on 2 L of oxygen. On reviewing the labs from this morning white count of 2, hemoglobin 14.5, platelets 116. Sodium 133, potassium 5.1, chloride 106, bicarb 21, BUN 14, creatinine 0.92. AST 314, ALT 284. CRP 27. On 09/30/2020 - patient was seen and examined at bedside. On reviewing the overnight telemetry, patient was found to have bradycardia heart rate as low as 30 in sinus rhythm, and this happened during her sleep. Patient denies having any chest pain or palpitations. She has mild difficulty in breathing along with mild dry cough. No abdominal pain nausea vomiting or diarrhea. No dysuria or hematuria. On reviewing her vitals T-max of 98.9, heart rate 30s to 50s, respi ratory rate 18, blood pressure 1 32 x 68, saturating at 94% on room air. On reviewing her labs- white count of 1.97, hemoglobin 12.4, platelets 105. Sodium 139, potassium 4.3, chloride 108, bicarbonate 25, BUN 15, creatinine 0.9. AST 101, ALT 194, LDH 208, CRP 0.9. 10/01/2020 Patient is seen and evaluated in follow-up currently sitting up in the chair status post is working with physical therapy. Patient will require a walker for gait dysfunction. Patient is currently maintained on 2 L of oxygen via nasal cannula at 96% oxygenation. Patient states she has had oxygen at home in the past although returned it as it was not needed. Patient may need home oxygen was stabilized and discharged. Patient is being followed by infectious disease and currently maintained on Remdesivir along with dexamethasone, Lovenox, vitamin C and zinc supplements and will continue at this time. Patient was seen and evaluated by ENT Dr. Diaz she had some increase swelling and edema noted in her airway passage although has improved she states significantly with steroids. Patient continues to have some tenderness of the oral pharynx although states is tolerating diet with no difficulties in swallowing. Inflammatory markers trending down and liver functions trending down as well. 10/03/2019 Patient remains on 2 L of oxygen feeling bit better. We will continue to wean off oxygen possibility of discharge in a day or 2 Review of systems: Constitutional: No reports of fatigue, fever, or chills Cardiovascular: No reports of chest pain or palpitations Respiratory: Reports mild shortness of breath or cough GI: No reports of nausea, vomiting, or diarrhea : No reports of dysuria or retention Neurovascular: No reports of weakness or numbness All medications have been reviewed Objective - Vital Signs Vital signs: Vital Signs Temp 98.9 F 10/02/20 07:05 Pulse 63 03/30/21 07:05 Resp 16 10/02/20 07:05 BP 118/55 10/02/20 07:05 Pulse Ox 93 L 10/02/20 08:45 Intake & Output 10/01/20 10/02/20 10/02/20 18:59 06:59 18:59 Intake Total 480 250 Balance 480 250 Intake: Intake, IV Titration 250 Amount Remdesivir 100 mg In 250 Sodium Chloride 0.9% 250 ml @ 250 mls/hr IVPB DAILY@1800 [facility] Rx#: [id number] Oral 480 Other: Voiding Method Toilet Toilet # Voids 1 2 # Bowel Movements 1 - Exam GENERAL: The patient is alert and oriented x3, not in any acute distress. HEENT: Pupils are round and equally reacting to light. EOMI. No scleral icterus. No pallor. Throat exam- she has dentures, swelling improved CARDIOVASCULAR: S1 and S2 present. Bradycardia PULMONARY: Bilateral breath sounds diminished with some scattered rhonchi. ABDOMEN: Abdomen is soft. Nontender. Nondistended. Normal bowel sounds. MUSCULOSKELETAL: No joint swelling or deformity. EXTREMITIES: No cyanosis, clubbing, or pedal edema. NEUROLOGICAL: Gross neurological examination did not reveal any focal deficits. SKIN: No rashes. - Labs CBC & Chem 7: 10/01/20 06:59 10/01/20 06:59 Assessment and Plan Plan: COVID-19 pneumonia: Patient is on Decadron, Remdesivir, Covid vitamins. Patient is presently on 2 L of oxygen continue to wean off 50 saturating at 93% is still a chance of worsening because of which patient is not being discharged at this time. Acute obstructive Laryngitis with tracheitis Leukopenia with lymphopenia Bradycardia, mild sinus secondary to Remdesivir Hyponatremia- resolved, hypovolemic hyponatremia improved Transaminitis - trending down Elevated inflammatory markers History of atrial fibrillation Right breast cancer Lymphoma on immunotherapy Hyperlipidemia Hypertension GERD Thyroid disorder Former smoker Patient was seen and evaluated by PT/OT therapy and will require a walker upon discharge for steady gait. Overall prognosis is guarded secondary to her age and chronic medical conditions.
[2020-10-02] MEDS: SODIUM CHLORIDE 0.9% 1,000 ML IV SCH ×2 (18:58→21:11)
[2020-10-02] MEDS: MORPHINE SULFATE 4 MG/ML SYRINGE IV PRN (21:06)
[2020-10-02] MEDS: TEMAZEPAM 15 MG CAP PO PRN (22:40)
--- NOTE | 2020-10-03 03:07 | PN ---
PROGRESS NOTE DATE OF SERVICE: 10/02/2020. REASON FOR FOLLOWUP: Covid 19 pneumonia. INTERVAL HISTORY: Patient is currently afebrile. The patient is still complaining of shortness of breath on minimal exertion. Also has a cough with moderate intensity. No chest pain. No abdominal pain. No worsening diarrhea. PHYSICAL EXAMINATION: Blood pressure 134/60, pulse of 103, temperature 98.3. She is 93% on 2 L nasal cannula. General description is an elderly female lying in bed in no distress. Respiratory system: Unlabored breathing, decreased intensity of breath sounds. No wheeze. HEART: S1, S2. Regular rate and rhythm. ABDOMEN: Soft, no tenderness. LABS: Hemoglobin 11.7, white count 2.0, BUN of 16, creatinine 0.9. DIAGNOSTIC IMPRESSION AND PLAN: Patient with acute COVID-19 pneumonia. The patient is currently covered with Remdesivir that will be continued while waiting her closely in addition to the dexamethasone, ascorbic acid, zinc and Lovenox and monitor clinical course closely. Continue supportive care. MMODL / IJN: [id number] /
[2020-10-03] MEDS: LEVOTHYROXINE 100 MCG TAB PO SCH (06:03)
[2020-10-03] MEDS: ENOXAPARIN 40 MG/0.4 ML SYRINGE SQ SCH (08:41)
[2020-10-03] MEDS: CHOLECALCIFEROL 25 MCG (1000 IU) TABLET PO SCH (08:41)
[2020-10-03] MEDS: ASCORBIC ACID 500 MG TAB PO SCH (08:41)
[2020-10-03] MEDS: CYANOCOBALAMIN 500 MCG TAB PO SCH (08:42)
[2020-10-03] MEDS: DEXAMETHASONE SOD PHOSPHATE 10 MG/ML 1 ML VIAL IV SCH (08:42)
[2020-10-03] MEDS: ZINC SULFATE 220 MG CAP PO SCH (08:42)
[2020-10-03] MEDS: SODIUM CHLORIDE 0.9% 1,000 ML IV SCH (08:42)
[2020-10-03] MEDS: MULTIVITAMINS, THERA 1 EACH TAB PO SCH (08:42)
[2020-10-03 09:14] LABS: HGB 13.9 g/dL (12.0-15.0); MCH 30.6 pg (27.0-32.0); MCHC 33.1 g/dL (32.0-37.0); MCV 92.5 fL (80.0-97.0); Mean Platelet Volume 10.6 fL (9.5-12.2); Platelet Count 119 X 10*3/uL (140-440); RBC 4.54 X 10*6/uL (4.10-5.20); WBC 3.33 X 10*3/uL (4.50-10.00)
--- NOTE | 2020-10-03 09:42 | XR ---
EXAMINATION TYPE: XR chest 1V portable DATE OF EXAM: 10/03/2020 COMPARISON: Chest x-ray 09/28/2020 HISTORY: Pneumonia TECHNIQUE: Single frontal view of the chest is obtained. FINDINGS: Left-sided port is stable of the distal tip overlying the superior vena cava. Surgical cli ps present in the right axilla. Indeterminate sclerotic density present in the proximal right humerus . There are overlying artifacts. No evident pneumothorax or pleural effusion. Cardiac mediastinal anna houette not significantly changed accounting for differences in technique, rotation. Bilateral airspa ce disease is present. IMPRESSION: Findings consistent with patient's history pneumonia. Indeterminate density in the proxi mal right humerus, consider bone scan as indicated.
[2020-10-03 09:59] LABS: African American GFR (CKD) 77.9 (60.0-200.0); BUN/Creat Ratio 17.5 Ratio (12.00-20.00); Calcium 7.9 mg/dL (8.7-10.3); Non-African American GFR(CKD) 67.2 (60.0-200.0)
[2020-10-03 10:08] LABS: ALT 171 U/L (4-34); AST 94 U/L (14-36); African American GFR (CKD) 73 (>60 ml/min/1.73 sqM); Albumin 3.1 g/dL (3.5-5.0); Albumin/Globulin Ratio 1.3; Alkaline Phosphatase 92 U/L (38-126); Anion Gap 4 mmol/L; Blood Urea Nitrogen 15 mg/dL (7-17); C Reactive Protein 79.7 mg/L (<10.0); Calcium 8.1 mg/dL (8.4-10.2); Carbon Dioxide 27 mmol/L (22-30); Chloride 99 mmol/L (98-107); Globulin 2.3 g/dL; Glucose 143 mg/dL (74-99); LDH 864 U/L (313-618); Non-African American GFR(CKD) 63 (>60 ml/min/1.73 sqM); Sodium 130 mmol/L (137-145); Total Bilirubin 0.6 mg/dL (0.2-1.3); Total Protein 5.4 g/dL (6.3-8.2)
[2020-10-03] MEDS: REMDESIVIR 100 MG in SODIUM CHLORIDE 0.9% 250 ML IVPB SCH (11:51)
[2020-10-03] MEDS: MORPHINE SULFATE 4 MG/ML SYRINGE IV PRN (11:52)
[2020-10-03 11:58] LABS: Immunoglobulin A 64.1 mg/dL (60.0-350.0); Immunoglobulin M 87.3 mg/dL (40.0-280.0)
--- NOTE | 2020-10-03 12:36 | P.CRDCN ---
History of Present Illness History of present illness: HISTORY OF PRESENTING ILLNESS This is a pleasant 85-year-old female past medical history significant for GERD, hypertension, hyperlipidemia, lymphoma receiving immunotherapy. She used to foll ow in the office with Dr. Casarez, last seen in 2018. We have been asked to see in consultation for new onset atrial fibrillation. It is in the patient's history that she has had atrial fibrillation, however, patient is not on anticoagulation and office notes do not mention any episodes of atrial fib rillation. Patient presents to the hospital with complaints of sore throat, felt her throat was closing off, lethargy, myalgias. Patient was recently diagnosis covid-19 infection 3 days ago and she states that her granddaughter was tested positive for covid-19. In the ER, CT of the soft tissue neck showing airway narrowing at the level of the vocal cords measuring up to 3.7 mm in the left apical lung mass. On 09/30, patient was found to be sinus bradycardia, HR 30s during her sleep. Per Nursing she has been getting bradycardic with Remdesivir medication. Laboratory data reviewed, sodium 1:30, potassium 4.0, creatinine 0.85, magnesium 2.1, elevated liver enzymes AST 94, PLT 171 , D-dimer 0.28 Vital signs blood pressure 118/82, heart rate 70s-120. Patient does not currently take any cardiac medications she is not on an anticoagulation DIAGNOSTICS Echocardiogram 02/2020 revealed left ventricular systolic function with an EF between 55-60%, mild aortic valve sclerosis, moderate AR, moderate MR, mild mitral stenosis, moderate TR, borderline pulmonary hypertension. Telemetry tracings indicate 10/02 around 1020am episode of atrial fibrillation RVR 170s. 10/03 another episode of atrial fibrillation with HR 160s. Patient also converts back at times to sinus tachycardia Chest xray Consistent with pneumonia REVIEW OF SYSTEMS At the time of my exam: CONSTITUTIONAL: Denies fever or chills. CARDIOVASCULAR: Denies chest pain, shortness of breath, orthopnea, PND or palpitations. RESPIRATORY: Denies cough. GASTROINTESTINAL: Denies abdominal pain, diarrhea, constipation, nausea or vomiting. MUSCULOSKELETAL: Denies myalgias. NEUROLOGIC: Denies numbness, tingling, headacbe or weakness. ENDOCRINE: Denies fatigue, weight change, polydipsia or polyurina. GENITOURINARY: Denies burning, hematuria or urgency with micturation. HEMATOLOGIC: Denies history of anemia or bleeding. PHYSICAL EXAMINATION Thorough physical exam not completed due to Covid-19 ASSESSMENT Paroxysmal Atrial Fibrillation- -[id number] score 4 COVID-19 Hypertension Hyperlipidemia PLAN -Will start metoprolol tartrate 12.5mg BID -Continue cardiac telemetry -Will discuss anticoagulation plan with family and PCP and most likely start anticoagulation tomorrow. Nurse Practitioner note has been reviewed, I agree with a documented findings and plan of care. Patient was seen and examined. Past Medical History Past Medical History: Atrial Fibrillation, Cancer, COPD, GERD/Reflux, Hearing Disorder / Deafness, Hyperlipidemia, Osteoarthritis (OA), Pneumonia, Thyroid Disorder Additional Past Medical History / Comment(s): Constipation, bowel adhesions. Hx bowel obstruction, right breast cancer-1997 no chemo or radiation, melanoma face 2014, osteoporosis, pneumonia Aug 2016, Lymphoma receives immunotherapy q60d, active shingles History of Any Multi-Drug Resistant Organisms: MRSA Date of last positivie culture/infection: 2010? MDRO Source:: post surgical wound from bowel resection Past Surgical History: Appendectomy, Bowel Resection, Breast Surgery, Cholecystectomy, Hysterectomy Additional Past Surgical History / Comment(s): Bilateral cataracts, right mastectomy, port a cath left upper chest Past Anesthesia/Blood Transfusion Reactions: No Reported Reaction Additional Past Anesthesia/Blood Transfusion Reaction / Comment(s): no hx blood transfusion Past Psychological History: No Psychological Hx Reported Smoking Status: Former smoker Past Alcohol Use History: None Reported Past Drug Use History: None Reported - Past Family History Sister(s) Family Medical History: Cancer Additional Family Medical History / Comment(s): breast Cancer in 4 sisters Son(s) Family Medical History: Cancer Additional Family Medical History / Comment(s): LYMPHOMA, Congential heart problem. Daughter(s) Family Medical History: Cancer Additional Family Medical History / Comment(s): colon cancer Brother(s) Family Medical History: Cancer Additional Family Medical History / Comment(s): ONE BROTHER BLADDER CA, ONE WITH LUNG CA Mother Family Medical History: Cancer Additional Family Medical History / Comment(s): Stomach cancer Father Family Medical History: CVA/TIA Medications and Allergies Home Medications Medication Instructions Recorded Confirmed Type Acetaminophen [Tylenol Extra 500 - 1,000 mg PO TID PRN 09/26/18 09/28/20 History Strength] Levothyroxine Sodium [Synthroid] 100 mcg PO DAILY 08/02/19 09/28/20 History Ubidecarenone [Co Q-10] 300 mg PO DAILY 08/25/19 09/28/20 History Albuterol Inhaler [Ventolin Hfa 2 puff INHALATION RT-Q4H PRN 12/27/19 09/28/20 History Inhaler] Ascorbic Acid [Vitamin C] 1,000 mg PO DAILY 06/02/20 09/28/20 History Cholecalciferol [Vitamin D3 (25 50 mcg PO DAILY 06/02/20 09/28/20 History Mcg = 1000 Iu)] Cyanocobalamin (Vitamin B-12) 1,000 mcg PO DAILY 06/02/20 09/28/20 History [Vitamin B-12] Welcome-3 Fatty Acids/Fish Oil [Fish 1 cap PO DAILY 06/02/20 09/28/20 History Oil 1,000 mg Softgel] Albuterol Nebulized [Ventolin 2.5 mg INHALATION RT-QID PRN 09/28/20 09/28/20 History Nebulized] Multivit-Min36/Iron/Folic Acid 1 tab PO DAILY 09/28/20 09/28/20 History [Geritol Complete Tablet] Allergies Allergy/AdvReac Type Severity Reaction Status Date / Time Iodinated Contrast Media Allergy Severe Anaphylaxis Verified 09/28/20 11:47 [Iodinated Contrast Media - IV Dye] atorvastatin calcium AdvReac Nausea Verified 09/28/20 11:47 [From Lipitor] celecoxib [From Celebrex] AdvReac Nausea Verified 09/28/20 11:47 cephalexin [From Keflex] AdvReac thrush Verified 09/28/20 11:47 influenza virus vaccine, AdvReac Nausea & Verified 09/28/20 11:47 specific Vomiting & [influenza virus Diarrhea,high vacc,specific] fever Physical Exam Vitals: Vital Signs Temp Pulse Resp BP Pulse Ox 10/03/20 08:00 97.8 F 119 H 17 118/82 84 L 10/03/20 02:00 98.5 F 112 H 16 129/68 93 L 10/02/20 21:16 43 L 18 10/02/20 19:40 98.3 F 43 L 18 134/60 93 L 10/02/20 13:00 98.9 F 56 L 16 131/54 91 L Intake and Output 10/02/20 10/03/20 10/03/20 22:59 06:59 14:59 Intake Total 120 Balance 120 Intake: Oral 120 Other: Voiding Method Toilet Toilet # Voids 1 2 1 # Bowel Movements 0 Results 10/03/20 05:08 10/03/20 09:15 Cardiac Enzymes 10/03/20 Range/Units 09:15 AST 94 H (14-36) U/L Lactate Dehydrogenase 864 H (313-618) U/L CBC 10/03/20 Range/Units 05:08 WBC 3.33 L (4.50-10.00) X 10*3/uL RBC 4.54 (4.10-5.20) X 10*6/uL Hgb 13.9 (12.0-15.0) g/dL Hct 42.0 (37.2-46.3) % Plt Count 119 L (140-440) X 10*3/uL Comprehensive Metabolic Panel 10/03/20 10/03/20 Range/Units 05:08 09:15 Sodium 135 130 L (135-145) mmol/L Potassium 4.0 4.0 (3.5-5.5) mmol/L Chloride 103 99 (96-109) mmol/L Carbon Dioxide 24.0 27 (21.6-31.8) mmol/L BUN 14.0 15 (9.0-27.0) mg/dL Creatinine 0.8 0.85 (0.6-1.5) mg/dL Glucose 114 H 143 H (70-110) mg/dL Calcium 7.9 L 8.1 L (8.7-10.3) mg/dL AST 94 H (14-36) U/L ALT 171 H (4-34) U/L Alkaline Phosphatase 92 (38-126) U/L Total Protein 5.4 L (6.3-8.2) g/dL Albumin 3.1 L (3.5-5.0) g/dL Current Medications Generic Name Dose Route Start Last Admin Trade Name Freq PRN Reason Stop Dose Admin Ascorbic Acid 1,000 mg 09/29/20 09:00 10/03/20 08:41 Ascorbic Acid 500 Mg Tab PO 1,000 mg DAILY DWAYNE Administration Cholecalciferol 50 mcg 09/29/20 09:00 10/03/20 08:41 Cholecalciferol 25 Mcg (1000 Iu) Tablet PO 50 mcg DAILY DWAYNE Administration Cyanocobalamin 1,000 mcg 09/29/20 09:00 10/03/20 08:42 Cyanocobalamin 500 Mcg Tab PO 1,000 mcg DAILY DWAYNE Administration Dexamethasone Sodium Phosphate 6 mg 10/03/20 09:00 10/03/20 08:42 Dexamethasone Sod Phosphate 10 Mg/Ml 1 Ml Vial IV 10/08/20 23:00 6 mg DAILY DWAYNE Administration Enoxaparin Sodium 40 mg 09/29/20 09:00 10/03/20 08:41 Enoxaparin 40 Mg/0.4 Ml Syringe SQ 40 mg DAILY DWAYNE Administration Sodium Chloride 1,000 mls @ 75 mls/hr 09/28/20 10:45 10/03/20 08:42 Saline 0.9% IV 75 mls/hr .[id number] DWAYNE Administration Remdesivir 100 mg/ Sodium 250 mls @ 250 mls/hr 10/02/20 12:00 10/03/20 11:51 Chloride IVPB 10/04/20 12:59 250 mls/hr DAILY@1200 DWAYNE Administration Levothyroxine Sodium 100 mcg 09/29/20 06:30 10/03/20 06:03 Levothyroxine 100 Mcg Tab PO 100 mcg DAILY@0630 DWAYNE Administration Metoprolol Tartrate 12.5 mg 10/03/20 21:00 Metoprolol Tartrate 12.5 Mg Tab PO BID [facility] Morphine Sulfate 4 mg 09/28/20 10:39 10/03/20 11:52 Morphine Sulfate 4 Mg/Ml Syringe IV 4 mg Q4HR PRN Administration Severe Pain Multivitamins 1 each 09/29/20 09:00 10/03/20 08:42 Multivitamins, Thera 1 Each Tab PO 1 each DAILY DWAYNE Administration Naloxone HCl 0.2 mg 09/28/20 10:39 Naloxone 0.4 Mg/Ml 1 Ml Vial IV Q2M PRN Opioid Reversal Ondansetron HCl 4 mg 09/28/20 11:59 10/02/20 10:28 Ondansetron 4 Mg/2 Ml Vial IVP 4 mg Q8H PRN Administration Nausea And Vomiting Temazepam 15 mg 09/29/20 16:59 10/02/20 22:40 Temazepam 15 Mg Cap PO 15 mg HS PRN Administration Insomnia Zinc Sulfate 220 mg 10/01/20 09:00 10/03/20 08:42 Zinc Sulfate 220 Mg Cap PO 220 mg DAILY DWAYNE Administration Intake and Output 10/02/20 10/03/20 10/03/20 22:59 06:59 14:59 Intake Total 120 Balance 120 Intake: Oral 120 Other: Voiding Method Toilet Toilet # Voids 1 2 1 # Bowel Movements 0 10/03/20 05:08 10/03/20 09:15
[2020-10-03] MEDS: METOPROLOL TARTRATE 12.5 MG TAB PO SCH ×2 (13:54→21:13)
--- NOTE | 2020-10-03 15:19 | P.PN ---
Subjective Progress Note Date: 10/03/20 Principal diagnosis: Covid, Respiratory Failure IgG is 533, pharmacy notified and asked for additional immune support given her dx covid and other multiple co morbidities and lymphoma history. We will give her 20grams daily x2 Objective - Vital Signs Vital signs: Vital Signs Temp 100.0 F H 10/03/20 14:00 Pulse 115 H 10/03/20 14:00 Resp 22 10/03/20 14:00 BP 133/73 10/03/20 14:00 Pulse Ox 90 L 10/03/20 14:00 Intake & Output 10/02/20 10/03/20 10/03/20 18:59 06:59 18:59 Intake Total 520 Balance 520 Intake: Oral 520 Other: Voiding Method Toilet Toilet # Voids 4 2 1 # Bowel Movements 0 0 - Exam - Constitutional General appearance: Present: cooperative, mild distress - EENT Eyes: Present: EOMI ENT: Present: hard of hearing, NA/AT, normal oropharynx - Neck Neck: Present: lymphadenopathy - Respiratory Respiratory: bilateral: diminished, rhonchi, wheezing - Cardiovascular Rhythm: regularly irregular - Gastrointestinal General gastrointestinal: Present: soft - Integumentary Integumentary: Present: pale - Neurologic Neurologic: Present: CNII-XII intact - Musculoskeletal Musculoskeletal: Present: generalized weakness - Psychiatric Psychiatric: Present: A&O x's 3 - Labs CBC & Chem 7: 10/04/20 09:40 10/04/20 09:39 Labs: Abnormal Lab Results - Last 24 Hours (Table) 10/01/20 10/03/20 10/03/20 Range/Units 06:59 05:08 05:08 WBC 3.33 L (4.50-10.00) X 10*3/uL Plt Count 119 L (140-440) X 10*3/uL Sodium (137-145) mmol/L Glucose 114 H (70-110) mg/dL Calcium 7.9 L (8.7-10.3) mg/dL AST (14-36) U/L ALT (4-34) U/L Lactate Dehydrogenase (313-618) U/L C-Reactive Protein (<10.0) mg/L Total Protein (6.3-8.2) g/dL Albumin (3.5-5.0) g/dL IgG 533.0 L (700.0-1600.0) mg/dL 10/03/20 Range/Units 09:15 WBC (4.50-10.00) X 10*3/uL Plt Count (140-440) X 10*3/uL Sodium 130 L (137-145) mmol/L Glucose 143 H (70-110) mg/dL Calcium 8.1 L (8.7-10.3) mg/dL AST 94 H (14-36) U/L ALT 171 H (4-34) U/L Lactate Dehydrogenase 864 H (313-618) U/L C-Reactive Protein 79.7 H (<10.0) mg/L Total Protein 5.4 L (6.3-8.2) g/dL Albumin 3.1 L (3.5-5.0) g/dL IgG (700.0-1600.0) mg/dL Microbiology - Last 24 Hours (Table) 10/02/20 19:30 Gram Stain - Preliminary Sputum Sputum Culture - Preliminary Assessment and Plan (1) Acute respiratory insufficiency Current Visit: Yes Status: Acute Code(s): R06.89 - OTHER ABNORMALITIES OF BREATHING SNOMED Code(s): 783763012 (2) COVID-19 Current Visit: Yes Status: Acute Code(s): U07.1 - COVID-19 SNOMED Code(s): 783668549 (3) Lymphoma Current Visit: Yes Status: Acute Code(s): C85.90 - NON-HODGKIN LYMPHOMA, UNSPECIFIED, UNSPECIFIED SITE SNOMED Code(s): 281584417 Plan: IgG 533 - We will give her 20grams daily x2 COntinue supportive care If ANC less than 1 will begin GCSF. Although currently stable
[2020-10-03] MEDS ORDERED: IMMUNE GLOBULIN (GAMMAGARD) 20 GM in EMPTY BAG 1 BAG IV ONE (16:00)
[2020-10-03] MEDS ORDERED: IOPAMIDOL CONTRAST (ORAL USE) VIAL PO PRN (16:04)
[2020-10-03] MEDS: ACETAMINOPHEN TAB 500 MG TAB PO PRN (16:54)
--- NOTE | 2020-10-03 17:26 | CT ---
EXAMINATION TYPE: CT ChestAbdPelvis wo con DATE OF EXAM: 10/03/2020 COMPARISON: HISTORY: Chest pain radiating to LT side of back. PT allergic to iodine, RN Melissa said study had to be done ALLISON because of possible dissection. Changed to CAP w/o. CT DLP: 496.80 mGycm Automated exposure control for dose reduction was used. Images obtained from the thoracic inlet to the floor the pelvis with no contrast. FINDINGS: There is patchy interstitial and airspace infiltrates throughout both lungs. There is more involvemen t of the upper lobes. There are bilateral pleural effusions. There is infiltrate and atelectasis at t he posterior lung bases. Heart is slightly enlarged. There is calcification in the mitral annulus. Th ere is coronary artery calcification. There is 4 cm aneurysm of the ascending aorta. There is no cont rast to evaluate for dissection. There is no pericardial effusion. There are no hilar masses. There is no mediastinal adenopathy. Liver spleen appear intact. There is no pancreatic mass. There is pancreatic atrophy. There are clips from cholecystectomy. There is dilated common bile duct that measures 2.2 cm. Intrahepatic bile duct s are not dilated. There is no adrenal mass. Kidneys have normal size. There is no hydronephrosis. Ureters are not dilat ed. Abdominal aorta is atheromatous. There is epigastric ventral hernia that contains fat and portion s of intestinal loops. There is no incarceration. Hernia is 4.5 cm in width. There is no retroperitoneal adenopathy. There is umbilical hernia that contains fat and measures 1.5 x 2 cm. The bladder distends smoothly. There is some free fluid in the pelvis. Fluid has low attenuat ion with density of 3 which is consistent with nonhemorrhagic fluid. There is no inguinal hernia. There is no evidence of a pelvic mass. There is no mesenteric edema. There is no free air. There is no sign of a bowel obstruction. Appendix is not definitely seen. There is no evidence of thickened appendix. Thoracic and lumbar spine appear intact. There is no significant compression deformity. Sternum is in tact. The bony pelvis is intact. Proximal femurs and hip joints are intact. There is no hip dysplasia . There is mild acetabular spurring. Sacroiliac joints are intact. Shoulder joints are intact. IMPRESSION: Bilateral patchy pneumonia with pleural effusions and basilar infiltrate and atelectasis. Aneurysm of the ascending aorta. Possibility of aortic dissection not evaluated due to lack of contra st. There is low-density free fluid in the pelvis of uncertain significance. No sign of inflammatory dominick l disease. Epigastric ventral hernia and umbilical hernia.
[2020-10-03] MEDS ORDERED: FUROSEMIDE 10 MG/ML 2 ML VIAL IV ONE (17:48)
--- NOTE | 2020-10-03 18:01 | P.PN ---
Subjective Progress Note Date: 10/03/20 COVID Pneumonia Ms. Dudley is a 85-year-old female with a past medical history of atrial fibrillation, GERD, hypertension, hyperlipidemia, osteoarthritis, thyroid disorder, and breast cancer, melanoma of the face, osteoporosis, lymphoma receiving immunotherapy coming to the hospital stating that she has a sore throat and feels like that it is closing off on her. Patient states that she was diagnosed with Covid infection 3 to 4 days back, she states that her granddaughter was tested positive for Covid and she probably got it from her. She has also been feeling lethargic with myalgias. She denies having any fevers or chills. Her main complaint is that she feels that her throat is closing off and it has been difficult for her to breathe or swallow. Patient denies having any abdominal pain nausea vomiting or diarrhea. No dysuria or hematuria. In the ER patient had soft tissue neck CT showing airway narrowing at the level of vocal cords measuring up to 3.7 mm and the left apical lung mass. Patient was given a dose of Solu-Medrol and is admitted for further management. Patient's vitals at the time of admission temperature of 99.1, heart rate 63, rest rate 22 saturating at 95% on room air. On reviewing her labs white count of 2.2, hemoglobin 15.4, platelets 145. Sodium 130, potassium 4.4, chloride 102, bicarb 19. BUN is 10 and creatinine 0.95. CRP of 14.2. On 09/29/2020-patient was seen and examined at the bedside. She states that her throat tightness feels much better compared to yesterday. As per discussion with nursing staff, patient had difficulty swallowing her pills this morning. She crushed it in applesauce and give it to the patient. Patient states that difficulty in breathing is better. No chest pain or palpitations. No abdominal pain nausea vomiting or diarrhea. No dysuria or hematuria. On reviewing her vitals T-max of 98.6, heart rate 60s to 70s, respiratory 20, blood pressure 129/70 saturating at 94% on 2 L of oxygen. On reviewing the labs from this morning white count of 2, hemoglobin 14.5, platelets 116. Sodium 133, potassium 5.1, chloride 106, bicarb 21, BUN 14, creatinine 0.92. AST 314, ALT 284. CRP 27. On 09/30/2020 - patient was seen and examined at bedside. On reviewing the overnight telemetry, patient was found to have bradycardia heart rate as low as 30 in sinus rhythm, and this happened during her sleep. Patient denies having any chest pain or palpitations. She has mild difficulty in breathing along with mild dry cough. No abdominal pain nausea vomiting or diarrhea. No dysuria or hematuria. On reviewing her vitals T-max of 98.9, heart rate 30s to 50s, respiratory rate 18, blood pressure 1 32 x 68, saturating at 94% on room air. On reviewing her labs- white count of 1.97, hemoglobin 12.4, platelets 105. Sodium 139, potassium 4.3, chloride 108, bicarbonate 25, BUN 15, creatinine 0.9. AST 101, ALT 194, LDH 208, CRP 0.9. 10/01/2020 Patient is seen and evaluated in follow-up currently sitting up in the chair status post is working with physical therapy. Patient will require a walker for gait dysfunction. Patient is currently maintained on 2 L of oxygen via nasal cannula at 96% oxygenation. Patient states she has had oxygen at home in the past although returned it as it was not needed. Patient may need home oxygen was stabilized and discharged. Patient is being followed by infectious disease and currently maintained on Remdesivir along with dexamethasone, Lovenox, vitamin C and zinc supplements and will continue at this time. Patient was seen and evaluated by ENT Dr. Diaz she had some increase swelling and edema noted in her airway passage although has improved she states significantly with steroids. Patient continues to have some tenderness of the oral pharynx although states is tolerating diet with no difficulties in swallowing. Inflammatory markers trending down and liver functions trending down as well. 10/03/2019 Patient remains on 2 L of oxygen feeling bit better. We will continue to wean off oxygen possibility of discharge in a day or 2 10/03/2020 Patient is seen and evaluated this morning currently requiring more oxygen and has continued cough and chest pain that radiates to her back. 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 Patient will be given a dose of IV Lasix and monitored closely. She continues to be on 5 L of oxygen and is receiv ing Remdesivir. Infectious disease is following and will consult pulmonary. Cardiology also consulted as patient has been in and out of [facility] with RVR and was started on metoprolol. Patient was also noted to have a low-grade fever today. Patient's overall appearance is ill-appearing. Patient denies history of aneurysm. Review of systems: Constitutional: reports fatigue, and fever, or chills Cardiovascular: Reports chest pain or palpitations Respiratory: Reports worsening shortness of breath or cough GI: No reports of nausea, vomiting, or diarrhea : No reports of dysuria or retention Neurovascular: No reports of weakness or numbness All medications have been reviewed Objective - Vital Signs Vital signs: Vital Signs Temp 97.8 F 10/03/20 08:00 Pulse 119 H 10/03/20 08:00 Resp 17 10/03/20 08:00 BP 118/82 10/03/20 08:00 Pulse Ox 84 L 10/03/20 08:00 Intake & Output 10/02/20 10/03/20 10/03/20 18:59 06:59 18:59 Intake Total 120 Balance 120 Intake: Oral 120 Other: Voiding Method Toilet Toilet # Voids 4 2 1 # Bowel Movements 0 0 - Exam GENERAL: The patient is alert and oriented x3, ill-appearing today, reQuiring m ore oxygen and currently on 5 L HEENT: Pupils are round and equally reacting to light. EOMI. No scleral icterus. No pallor. Throat exam- she has dentures, swelling improved CARDIOVASCULAR: S1 and S2 present. Bradycardia PULMONARY: Bilateral breath sounds diminished with some scattered rhonchi noted. ABDOMEN: Abdomen is soft. Nontender. Nondistended. Normal bowel sounds. MUSCULOSKELETAL: No joint swelling or deformity. EXTREMITIES: No cyanosis, clubbing, or pedal edema. NEUROLOGICAL: Gross neurological examination did not reveal any focal deficits. SKIN: No rashes. - Labs CBC & Chem 7: 10/03/20 05:08 10/03/20 09:15 Labs: Abnormal Lab Results - Last 24 Hours (Table) 10/01/20 10/03/20 10/03/20 Range/Units 06:59 05:08 05:08 WBC 3.33 L (4.50-10.00) X 10*3/uL Plt Count 119 L (140-440) X 10*3/uL Sodium (137-145) mmol/L Glucose 114 H (70-110) mg/dL Calcium 7.9 L (8.7-10.3) mg/dL AST (14-36) U/L ALT (4-34) U/L Lactate Dehydrogenase (313-618) U/L C-Reactive Protein (<10.0) mg/L Total Protein (6.3-8.2) g/dL Albumin (3.5-5.0) g/dL IgG 533.0 L (700.0-1600.0) mg/dL 10/03/20 Range/Units 09:15 WBC (4.50-10.00) X 10*3/uL Plt Count (140-440) X 10*3/uL Sodium 130 L (137-145) mmol/L Glucose 143 H (70-110) mg/dL Calcium 8.1 L (8.7-10.3) mg/dL AST 94 H (14-36) U/L ALT 171 H (4-34) U/L Lactate Dehydrogenase 864 H (313-618) U/L C-Reactive Protein 79.7 H (<10.0) mg/L Total Protein 5.4 L (6.3-8.2) g/dL Albumin 3.1 L (3.5-5.0) g/dL IgG (700.0-1600.0) mg/dL Microbiology - Last 24 Hours (Table) 10/02/20 19:30 Gram Stain - Preliminary Sputum Sputum Culture - Preliminary Assessment and Plan Assessment: COVID-19 pneumonia, a she is maintained on Decadron currently receiving remdesivir, vitamin and zinc supplements along with Lovenox, now requiring 5 L of oxygen and having worsening shortness of breath Acute obstructive Laryngitis with early tracheitis Leukopenia with lymphopenia Bradycardia Hyponatremia- resolved Transaminitis - trending down Elevated inflammatory markers History of atrial fibrillation Right breast cancer Lymphoma on immunotherapy Hyperlipidemia Hypertension GERD Thyroid disorder Hard of hearing History of breast surgery History of hysterectomy History of bowel resection Former smoker PLAN: Sinuous current medications patient will be given a one-time dose of 20 mg IV Lasix as CT of the chest showed pleural effusions and pulmonary will be consulted. multiple medical consultations following. Cardiology also consulted as patient has been in and out of [facility] with no known history. Patient currently receiving Remdesivir and continued on Lovenox along with vitamin supplements. Currently and worsening shortness of breath and is on [address] abdomen and pelvis chest done as mentioned previously. Overall prognosis remains guarded.
[2020-10-03] MEDS ORDERED: METOPROLOL TARTRATE 12.5 MG TAB PO SCH (21:00)
[2020-10-03] MEDS: TEMAZEPAM 15 MG CAP PO PRN (21:20)
[2020-10-03] MEDS: FUROSEMIDE 10 MG/ML 2 ML VIAL IV SCH (22:30)
--- NOTE | 2020-10-03 22:41 | PN ---
PROGRESS NOTE DATE OF SERVICE: 10/03/2020 REASON FOR FOLLOWUP: Acute COVID-19 pneumonia. INTERVAL HISTORY: Patient is currently atrial fibrillation with RVR and did have a low grade fever of 100 this afternoon. The patient denies any worsening shortness of breath. She did have some cough with occasional sputum. No nausea, no vomiting. No abdominal pain or diarrhea. PHYSICAL EXAMINATION: Blood pressure 124/61 with a pulse of 103, temperature is 97.5. She is 92% 4 L nasal cannula. General description is an elderly female up in the bed in no distress. RESPIRATORY SYSTEM: Unlabored breathing. Decreased breath sounds in the bases with no wheeze. HEART S1, S2. Regular rate and rhythm. ABDOMEN: Soft, no tenderness. LABS: Hemoglobin is 13.1, white count 3.33, creatinine 0.85. Troponin has been negative. DIAGNOSTIC IMPRESSION AND PLAN: Patient with acute COVID-19 pneumonia in this patient currently covered with Remdesivir to continue along with dexamethasone, Lovenox and ascorbic acid. Monitor clinical course closely. Continue supportive care. MMALANL / OLYN: [id number] /
[2020-10-04] MEDS: ACETAMINOPHEN TAB 500 MG TAB PO PRN ×3 (00:04→19:54)
[2020-10-04] MEDS: MORPHINE SULFATE 4 MG/ML SYRINGE IV PRN (00:05)
[2020-10-04] MEDS: ONDANSETRON 4 MG/2 ML VIAL IVP PRN (00:36)
[2020-10-04] MEDS ORDERED: METOPROLOL TARTRATE 12.5 MG TAB PO STA (00:43)
[2020-10-04] MEDS: SODIUM CHLORIDE 0.9% 1,000 ML IV SCH (00:54)
[2020-10-04] MEDS: LEVOTHYROXINE 100 MCG TAB PO SCH (06:04)
[2020-10-04] MEDS: ENOXAPARIN 40 MG/0.4 ML SYRINGE SQ SCH (09:29)
[2020-10-04] MEDS: CYANOCOBALAMIN 500 MCG TAB PO SCH (09:29)
[2020-10-04] MEDS: FUROSEMIDE 10 MG/ML 2 ML VIAL IV SCH ×2 (09:30→19:55)
[2020-10-04] MEDS: ASCORBIC ACID 500 MG TAB PO SCH (09:30)
[2020-10-04] MEDS: DEXAMETHASONE SOD PHOSPHATE 10 MG/ML 1 ML VIAL IV SCH (09:30)
[2020-10-04] MEDS: MULTIVITAMINS, THERA 1 EACH TAB PO SCH (09:30)
[2020-10-04] MEDS: CHOLECALCIFEROL 25 MCG (1000 IU) TABLET PO SCH (09:30)
[2020-10-04] MEDS: METOPROLOL TARTRATE 12.5 MG TAB PO SCH ×3 (09:40→21:58)
[2020-10-04] MEDS: ZINC SULFATE 220 MG CAP PO SCH (09:40)
[2020-10-04 10:39] LABS: African American GFR (CKD) 68 (>60 ml/min/1.73 sqM); Anion Gap 6 mmol/L; Blood Urea Nitrogen 19 mg/dL (7-17); Calcium 8.1 mg/dL (8.4-10.2); Carbon Dioxide 29 mmol/L (22-30); Chloride 99 mmol/L (98-107); Glucose 97 mg/dL (74-99); Non-African American GFR(CKD) 59 (>60 ml/min/1.73 sqM); Potassium 3.7 mmol/L (3.5-5.1); Sodium 134 mmol/L (137-145)
[2020-10-04 10:45] LABS: HCT 43.8 % (34.0-46.0); HGB 14.7 gm/dL (11.4-16.0); MCH 30.6 pg (25.0-35.0); MCHC 33.5 g/dL (31.0-37.0); MCV 91.4 fL (80.0-100.0); Mean Platelet Volume 8.4; Platelet Count 164 k/uL (150-450); RDW 12.6 % (11.5-15.5); WBC 4.1 k/uL (3.8-10.6)
[2020-10-04 11:01] LABS: Band Neutrophils % 8 %; Eosinophils # (M) 0.04 k/uL (0-0.7); Lymphocytes # (M) 1.11 k/uL (1.0-4.8); Metamyelocytes # (M) 0.08 k/uL (0); Metamyelocytes % 2 %; Monocytes # (M) 0.41 k/uL (0-1.0); Myelocytes # (M) 0.04 k/uL (0); Myelocytes % 1 %; Neutrophils % (M) 53 %; Nucleated Red Blood Cells 0 /100 WBC (0-0); Poikilocytosis (M) Present; Total Cells Counted 200; Toxic Vacuolation Present
[2020-10-04] MEDS: REMDESIVIR 100 MG in SODIUM CHLORIDE 0.9% 250 ML IVPB SCH (12:10)
--- NOTE | 2020-10-04 12:53 | P.CNPUL ---
History of Present Illness Consult date: 10/04/20 Requesting physician: Mery Ramirez Reason for consult: dyspnea, abnormal CXR/CT Chief complaint: Sore throat, difficulty swallowing, shortness of breath History of present illness: This is an 85-year-old female patient with a history of atrial fibrillation, COPD, lymphoma on active chemotherapy, hypothyroidism, hearing disorder, hyperlipidemia, right breast cancer, melanoma former smoker. She had presented to the emergency room back on 09/28/2020. We're consulted today for a chest x- ray showing possible pleural effusion. Computed tomography scan of the chest revealed bilateral patchy pneumonia with pleural effusions and basilar infiltrate and atelectasis. She is seen today on the regular medical floor. Currently sitting up in a chair at the bedside. Maintaining O2 saturation low 90s on 4 L/m per nasal cannula. She's afebrile. Sputum culture pending. Blood culture reveals no growth to date. White count 4.1. Hemoglobin 14.7. Sodium 134. Creatinine 0.90. Troponin is negative x 2. ProBNP 5330. She is initiated on Lasix 20 mg IV every 12 hours. Anticoagulated with Eliquis. Remains on vitamin supplements, dexamethasone. He has been initiated on Remdesivir. This is day number #4. Review of Systems REVIEW OF SYSTEMS: CONSTITUTIONAL: Generalized weakness. Denies any recent significant weight loss or weight gain. EYES: Denies change in vision. EARS, NOSE, MOUTH, THROAT: Denies headaches, denies sore throat. CARDIOVASCULAR: Denies chest pain, palpitations or syncopal episodes. RESPIRATORY: Positive for shortness of breath, cough, congestion no hemoptysis. GASTROINTESTINAL: Denies change in appetite, denies abdominal pain GENITOURINARY: Denies hematuria, denies infections. MUSKULOSKELETAL: Denies pain, denies swelling. INTEGUMENTARY: Denies rash, denies eczema. NEUROLOGICAL: Denies recent memory loss, no recent seizure activity. PSYCHIATRIC: Denies anxiety, denies depression. HEMATOLOGIC/LYMPHATIC: Denies anemia, denies enlarged lymph nodes. Past Medical History Past Medical History: Atrial Fibrillation, Cancer, COPD, GERD/Reflux, Hearing Disorder / Deafness, Hyperlipidemia, Osteoarthritis (OA), Pneumonia, Thyroid Disorder Additional Past Medical History / Comment(s): Constipation, bowel adhesions. Hx bowel obstruction, right breast cancer-1997 no chemo or radiation, melanoma face 2015, osteoporosis, pneumonia Aug 2016, Lymphoma receives immunotherapy q60d, active shingles History of Any Multi-Drug Resistant Organisms: MRSA Date of last positivie culture/infection: 2010? MDRO Source:: post surgical wound from bowel resection Past Surgical History: Appendectomy, Bowel Resection, Breast Surgery, Cholecystectomy, Hysterectomy Additional Past Surgical History / Comment(s): Bilateral cataracts, right mastectomy, port a cath left upper chest Past Anesthesia/Blood Transfusion Reactions: No Reported Reaction Additional Past Anesthesia/Blood Transfusion Reaction / Comment(s): no hx blood transfusion Past Psychological History: No Psychological Hx Reported Smoking Status: Former smoker Past Alcohol Use History: None Reported Past Drug Use History: None Reported - Past Family History Sister(s) Family Medical History: Cancer Additional Family Medical History / Comment(s): breast Cancer in 4 sisters Son(s) Family Medical History: Cancer Additional Family Medical History / Comment(s): LYMPHOMA, Congential heart problem. Daughter(s) Family Medical History: Cancer Additional Family Medical History / Comment(s): colon cancer Brother(s) Family Medical History: Cancer Additional Family Medical History / Comment(s): ONE BROTHER BLADDER CA, ONE WITH LUNG CA Mother Family Medical History: Cancer Additional Family Medical History / Comment(s): Stomach cancer Father Family Medical History: CVA/TIA Medications and Allergies Home Medications Medication Instructions Recorded Confirmed Type Acetaminophen [Tylenol Extra 500 - 1,000 mg PO TID PRN 09/26/18 09/28/20 History Strength] Levothyroxine Sodium [Synthroid] 100 mcg PO DAILY 08/02/19 09/28/20 History Ubidecarenone [Co Q-10] 300 mg PO DAILY 08/25/19 09/28/20 History Albuterol Inhaler [Ventolin Hfa 2 puff INHALATION RT-Q4H PRN 12/27/19 09/28/20 History Inhaler] Ascorbic Acid [Vitamin C] 1,000 mg PO DAILY 06/02/20 09/28/20 History Cholecalciferol [Vitamin D3 (25 50 mcg PO DAILY 06/02/20 09/28/20 History Mcg = 1000 Iu)] Cyanocobalamin (Vitamin B-12) 1,000 mcg PO DAILY 06/02/20 09/28/20 History [Vitamin B-12] Childress-3 Fatty Acids/Fish Oil [Fish 1 cap PO DAILY 06/02/20 09/28/20 History Oil 1,000 mg Softgel] Albuterol Nebulized [Ventolin 2.5 mg INHALATION RT-QID PRN 09/28/20 09/28/20 H istory Nebulized] Multivit-Min36/Iron/Folic Acid 1 tab PO DAILY 09/28/20 09/28/20 History [Geritol Complete Tablet] Apixaban [Eliquis] 2.5 mg PO BID 30 Days #60 tablet 10/04/20 Rx Allergies Allergy/AdvReac Type Severity Reaction Status Date / Time Iodinated Contrast Media Allergy Severe Anaphylaxis Verified 09/28/20 11:47 [Iodinated Contrast Media - IV Dye] atorvastatin calcium AdvReac Nausea Verified 09/28/20 11:47 [From Lipitor] celecoxib [From Celebrex] AdvReac Nausea Verified 09/28/20 11:47 cephalexin [From Keflex] AdvReac thrush Verified 09/28/20 11:47 influenza virus vaccine, AdvReac Nausea & Verified 09/28/20 11:47 specific Vomiting & [influenza virus Diarrhea,high vacc,specific] fever Physical Exam Vitals: Vital Signs Temp Pulse Resp BP Pulse Ox 10/04/20 08:00 97.1 F L 57 L 18 115/56 90 L 10/04/20 02:00 97.5 F L 94 18 99/65 94 L 10/04/20 01:27 160 H 10/04/20 00:46 99.1 F 79 20 131/78 92 L 10/04/20 00:25 97.9 F 140 H 24 140/89 94 L 10/04/20 00:08 157 H 10/03/20 21:09 94 L 10/03/20 20:00 97.5 F L 103 H 18 124/61 92 L 10/03/20 14:00 100.0 F H 115 H 22 133/73 90 L Intake and Output 10/03/20 10/04/20 10/04/20 22:59 06:59 14:59 Intake Total 200 Balance 200 Intake: Oral 200 Other: Voiding Method Toilet Toilet # Voids 1 GENERAL EXAM: Alert, frail, 85-year-old female patient, on 4 L nasal cannula comfortable in no apparent distress. HEAD: Normocephalic. EYES: Normal reaction of pupils, equal size. NOSE: Clear with pink turbinates. THROAT: No erythema or exudates. NECK: No masses, no JVD. CHEST: No chest wall deformity. LUNGS: Equal air entry with with crackles in the bilateral bases. CVS: S1 and S2 normal with no audible murmur, irregular rhythm. ABDOMEN: No hepatosplenomegaly, normal bowel sounds, no guarding or rigidity. SPINE: No scoliosis or deformity SKIN: No rashes CENTRAL NERVOUS SYSTEM: No focal deficits, tone is normal in all 4 extremities. EXTREMITIES: There is no peripheral edema. No clubbing, no cyanosis. Peripheral pulses are intact. Results - Laboratory Findings CBC and BMP: 10/04/20 09:40 10/04/20 09:39 PT/INR, D-dimer PT 10.8 sec (9.0-12.0) 09/28/20 08:35 INR 1.0 (<1.2) 09/28/20 08:35 D-Dimer 0.28 mg/L FEU (<0.60) 09/30/20 06:35 Abnormal lab findings: Abnormal Labs 09/28/20 09/28/20 09/29/20 08:35 08:35 09:10 WBC 2.2 L 2.0 L RBC Hgb Hct Plt Count 145 L 116 L Plt Count Comment DECREASED A Neutrophils # 1.0 L 1.0 L Lymphocytes # 0.9 L 0.8 L Eosinophils # Metamyelocytes # (Man) Myelocytes # (Manual) Sodium 130 L Carbon Dioxide 19 L BUN Est GFR (CKD-EPI)NonAf Glucose 112 H Calcium Total Bilirubin AST 121 H ALT 160 H Lactate Dehydrogenase C-Reactive Protein 14.2 H Total Protein Albumin IgG 09/29/20 09/30/20 09/30/20 11:48 06:35 06:35 WBC 1.97 L RBC 4.08 L Hgb Hct Plt Count 105 L Plt Count Comment Neutrophils # 1.03 L Lymphocytes # 0.60 L Eosinophils # 0 L Metamyelocytes # (Man) Myelocytes # (Manual) Sodium 133 L Carbon Dioxide 21 L BUN Est GFR (CKD-EPI)NonAf 58.3 L Glucose 108 H 136 H Calcium 8.3 L 8.3 L Total Bilirubin AST 314 H 101 H ALT 284 H 194 H Lactate Dehydrogenase 1149 H C-Reactive Protein 27.0 H 0.9 H Total Protein 6.1 L 5.2 L Albumin 3.50 L IgG 10/01/20 10/01/20 10/01/20 06:59 06:59 06:59 WBC 2.80 L RBC 3.77 L Hgb 11.7 L Hct 35.7 L Plt Count 118 L Plt Count Comment Neutrophils # 1.66 L Lymphocytes # 0.59 L Eosinophils # 0 L Metamyelocytes # (Man) Myelocytes # (Manual) Sodium Carbon Dioxide 20.8 L BUN Est GFR (CKD-EPI)NonAf 58.3 L Glucose 115 H Calcium 8.1 L Total Bilirubin 0.2 L AST 45 H ALT 125 H Lactate Dehydrogenase C-Reactive Protein Total Protein 4.8 L Albumin 3.20 L IgG 533.0 L 10/03/20 10/03/20 10/03/20 05:08 05:08 09:15 WBC 3.33 L RBC Hgb Hct Plt Count 119 L Plt Count Comment Neutrophils # Lymphocytes # Eosinophils # Metamyelocytes # (Man) Myelocytes # (Manual) Sodium 130 L Carbon Dioxide BUN Est GFR (CKD-EPI)NonAf Glucose 114 H 143 H Calcium 7.9 L 8.1 L Total Bilirubin AST 94 H ALT 171 H Lactate Dehydrogenase 864 H C-Reactive Protein 79.7 H Total Protein 5.4 L Albumin 3.1 L IgG 10/04/20 10/04/20 09:39 09:40 WBC RBC Hgb Hct Plt Count Plt Count Comment Neutrophils # Lymphocytes # Eosinophils # Metamyelocytes # (Man) 0.08 H Myelocytes # (Manual) 0.04 H Sodium 134 L Carbon Dioxide BUN 19 H Est GFR (CKD-EPI)NonAf Glucose Calcium 8.1 L Total Bilirubin AST ALT Lactate Dehydrogenase C-Reactive Protein Total Protein Albumin IgG - Diagnostic Findings Chest x-ray: image reviewed CT scan - chest: image reviewed Assessment and Plan Assessment: 1 Acute hypoxemic respiratory failure secondary to CoVID 19 pneumonia, acute exacerbation of diastolic congestive heart failure 2 Paroxysmal atrial fibrillation 3 Hypertension 4 Hyperlipidemia 5 lymphoma with active chemotherapy 6 Hypothyroidism 7 Hyperlipidemia 8 Hearing disorder 9 Hypothyroidism 10 History of breast cancer 11 History of melanoma 12 Previous bowel resection 13 Poor overall functional performance based on the above-mentioned multiple comorbidities Plan: The patient was seen and evaluated by Dr. Salazar Chest x-ray, CAT scans and labs reviewed Continue IV diuretics No need for thoracentesis at this time Titrate down the FiO2 as tolerated Continue Remdesivir, Decadron, vitamin supplements Anticoagulation per cardiology We will continue to follow make further recommendations based on her clinical status I, the cosigning physician, performed a history & physical examination of the patient. Lungs sounds crackles in the bilateral posterior bases. Maintaining good O2 saturations in the 90s on 4 L/m per nasal cannula. I discussed the assessment and plan of care with my nurse practitioner, Aleshia Mancilla. I attest to the above consultation as dictated by her. Time with Patient: Greater than 30
[2020-10-04 13:41] VITALS: BMI 24.7
--- NOTE | 2020-10-04 13:53 | P.PN ---
Subjective This is a pleasant 85-year-old female past medical history significant for GERD, hypertension, hyperlipidemia, lymphoma receiving immunotherapy. She used to follow in the office with Dr. Casarez, last seen in 2018. We have been asked to see in consultation for new onset atrial fibrillation. It is in the patient's history that she has had atrial fibrillation, however, patient is not on anticoagulation and office notes do not mention any episodes of atrial fibrillation. Patient presents to the hospital with complaints of sore throat, felt her throat was closing off, lethargy, myalgias. Patient was recently diagnosis covid-19 infection 3 days ago and she states that her granddaughter was tested positive for covid-19. In the ER, CT of the soft tissue neck showing airway narrowing at the level of the vocal cords measuring up to 3.7 mm in the left apical lung mass. On 09/30, patient was found to be sinus bradycardia, HR 30s during her sleep. Per Nursing she has been getting bradycardic with Remdesivir medication. Laboratory data reviewed, sodium 1:30, potassium 4.0, creatinine 0.85, magnesium 2.1, elevated liver enzymes AST 94, PLT 171 , D-dimer 0.28 Vital signs blood pressure 118/82, heart rate 70s-120. Patient does not currently take any cardiac medications she is not on an anticoagulation DIAGNOSTICS Echocardiogram 02/2020 revealed left ventricular systolic function with an EF between 55-60%, mild aortic valve sclerosis, moderate AR, moderate MR, mild mitral stenosis, moderate TR, borderline pulmonary hypertension. Telemetry tracings indicate 10/02 around 1020am episode of atrial fibrillation RVR 170s. 10/03 another episode of atrial fibrillation with HR 160s. Patient also converts back at times to sinus tachycardia Chest xray Consistent with pneumonia 10/04/20: Overnight A-Team called due to increased HR in the 160s, Patient noted to be in atrial flutter. Patient given one time dose of Lopressor 12.5mg PO. Patient's t elemetry reviewed Patient continues to be in and out of atrial fibrillation. HR noted overnight in the 140s. BP overnight 99/65, this am BP 115/56m afebrile, maintaining oxygen saturations on 4L nasal cannula. Laboratory data reviewed, sodium 134, potassium 3.7, serum creatinine 0.90, creatinine 19, troponin negative 2, BNP 5330, TSH 1.9, WBC 4.1, hemoglobin 14.7, platelets 164.Spoke with patient's yesterday and he states she has been told she has had atrial fibrillation before, but that it was controlled and "not critical where she had to do anything about". He doesnt recall her being on an anticoagulation or metoprolol. He states that she used to see Dr. 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 He does endorse some worries about a blood thinner due to his being very weak. PHYSICAL EXAMINATION Thorough physical exam not completed due to Covid-19, Patient discussed and chart reviewed ASSESSMENT Paroxysmal Atrial Fibrillation- -[id number] score 4 COVID-19 Hypertension Hyperlipidemia PLAN -Will increase metoprolol tartrate 12.5mg to TID -Continue cardiac telemetry -Will start Eliquis 2.5mg BID and check cost with case management. Nurse Practitioner note has been reviewed, I agree with a documented findings and plan of care. Patient was seen and examined. Objective - Vital Signs Vital signs: Vital Signs Temp 97.1 F L 10/04/20 08:00 Pulse 57 L 10/04/20 08:00 Resp 18 10/04/20 08:00 BP 115/56 10/04/20 08:00 Pulse Ox 90 L 10/04/20 08:00 Intake & Output 10/03/20 10/04/20 10/04/20 18:59 06:59 18:59 Intake Total 520 200 Balance 520 200 Weight 67.585 kg Intake: Oral 520 200 Other: Voiding Method Toilet Toilet Toilet # Voids 1 1 - Labs CBC & Chem 7: 10/04/20 09:40 10/04/20 09:39 Labs: Abnormal Lab Results - Last 24 Hours (Table) 10/04/20 10/04/20 Range/Units 09:39 09:40 Metamyelocytes # (Man) 0.08 H (0) k/uL Myelocytes # (Manual) 0.04 H (0) k/uL Sodium 134 L (137-145) mmol/L BUN 19 H (7-17) mg/dL Calcium 8.1 L (8.4-10.2) mg/dL Microbiology - Last 24 Hours (Table) 10/03/20 09:15 Blood Culture - Preliminary Blood No Growth after 24 hours
--- NOTE | 2020-10-04 14:49 | P.PN ---
Subjective Progress Note Date: 10/04/20 COVID Pneumonia Ms. Dudley is a 85-year-old female with a past medical history of atrial fibrillation, GERD, hypertension, hyperlipidemia, osteoarthritis, thyroid disorder, and breast cancer, melanoma of the face, osteoporosis, lymphoma receiving immunotherapy coming to the hospital stating that she has a sore throat and feels like that it is closing off on her. Patient states that she was diagnosed with Covid infection 3 to 4 days back, she states that her granddaughter was tested positive for Covid and she probably got it from her. She has also been feeling lethargic with myalgias. She denies having any fevers or chills. Her main complaint is that she feels that her throat is closing off and it has been difficult for her to breathe or swallow. Patient denies having any abdominal pain nausea vomiting or diarrhea. No dysuria or hematuria. In the ER patient had soft tissue neck CT showing airway narrowing at the level of vocal cords measuring up to 3.7 mm and the left apical lung mass. Patient was given a dose of Solu-Medrol and is admitted for further management. Patient's vitals at the time of admission temperature of 99.1, heart rate 63, rest rate 22 saturating at 95% on room air. On reviewing her labs white count of 2.2, hemoglobin 15.4, platelets 145. Sodium 130, potassium 4.4, chloride 102, bicarb 19. BUN is 10 and creatinine 0.95. CRP of 14.2. On 09/29/2020-patient was seen and examined at the bedside. She states that her throat tightness feels much better compared to yesterday. As per discussion with nursing staff, patient had difficulty swallowing her pills this morning. She crushed it in applesauce and give it to the patient. Patient states that difficulty in breathing is better. No chest pain or palpitations. No abdominal pain nausea vomiting or diarrhea. No dysuria or hematuria. On reviewing her vitals T-max of 98.6, heart rate 60s to 70s, respiratory 20, blood pressure 129/70 saturating at 94% on 2 L of oxygen. On reviewing the labs from this morning white count of 2, hemoglobin 14.5, platelets 116. Sodium 133, potassium 5.1, chloride 106, bicarb 21, BUN 14, creatinine 0.92. AST 314, ALT 284. CRP 27. On 09/30/2020 - patient was seen and examined at bedside. On reviewing the overnight telemetry, patient was found to have bradycardia heart rate as low as 30 in sinus rhythm, and this happened during her sleep. Patient denies having any chest pain or palpitations. She has mild difficulty in breathing along with mild dry cough. No abdominal pain nausea vomiting or diarrhea. No dysuria or hematuria. On reviewing her vitals T-max of 98.9, heart rate 30s to 50s, respiratory rate 18, blood pressure 1 32 x 68, saturating at 94% on room air. On reviewing her labs- white count of 1.97, hemoglobin 12.4, platelets 105. Sodium 139, potassium 4.3, chloride 108, bicarbonate 25, BUN 15, creatinine 0.9. AST 101, ALT 194, LDH 208, CRP 0.9. 10/01/2020 Patient is seen and evaluated in follow-up currently sitting up in the chair status post is working with physical therapy. Patient will require a walker for gait dysfunction. Patient is currently maintained on 2 L of oxygen via nasal cannula at 96% oxygenation. Patient states she has had oxygen at home in the past although returned it as it was not needed. Patient may need home oxygen was stabilized and discharged. Patient is being followed by infectious disease and currently maintained on Remdesivir along with dexamethasone, Lovenox, vitamin C and zinc supplements and will continue at this time. Patient was seen and evaluated by ENT Dr. Diaz she had some increase swelling and edema noted in her airway passage although has improved she states significantly with steroids. Patient continues to have some tenderness of the oral pharynx although states is tolerating diet with no difficulties in swallowing. Inflammatory markers trending down and liver functions trending down as well. 10/03/2019 Patient remains on 2 L of oxygen feeling bit better. We will continue to wean off oxygen possibility of discharge in a day or 2 10/03/2020 Patient is seen and evaluated this morning currently requiring more oxygen and has continued cough and chest pain that radiates to her back. 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 Patient will be given a dose of IV Lasix and monitored closely. She continues to be on 5 L of oxygen and is receiv ing Remdesivir. Infectious disease is following and will consult pulmonary. Cardiology also consulted as patient has been in and out of A. fib with RVR and was started on metoprolol. Patient was also noted to have a low-grade fever today. Patient's overall appearance is ill-appearing. Patient denies history of aneurysm. 10/04/2020 Patient is seen in follow-up this morning appears slightly improved from yesterday. Pulmonary was consulted and now following along with infectious disease and cardiology. Patient continues to be in atrial fibrillation and was initiated on metoprolol by cardiology and is being started on anticoagulant Eliquis. Patient is currently maintained on 4 L of oxygen via nasal cannula and denies any worsening shortness of breath. Patient states she has a continued cough and was having some back discomfort although has improved from yesterday. Patient was started on 20 mg IV Lasix twice daily and will continue at this time. Patient was also on IV fluids which were discontinued. Patient is tolerating diet and drinking with no reports of nausea or vomiting noted. BNP was done yesterday showing 5330. Sodium today is 134 with a potassium of 3.7 and current creatinine is 0.9. CBC within normal limits. Patient is afebrile. Review of systems: Constitutional: reports fatigue, and fever, or chills Cardiovascular: Reports chest pain or palpitations Respiratory: Reports shortness of breath and cough although feels has slightly improved GI: No reports of nausea, vomiting, or diarrhea : No reports of dysuria or retention Neurovascular: No reports of weakness or numbness All medications have been reviewed Objective - Vital Signs Vital signs: Vital Signs Temp 97.1 F L 10/04/20 08:00 Pulse 57 L 10/04/20 08:00 Resp 18 10/04/20 08:00 BP 115/56 10/04/20 08:00 Pulse Ox 90 L 10/04/20 08:00 Intake & Output 10/03/20 10/04/20 10/04/20 18:59 06:59 18:59 Intake Total 520 200 Balance 520 200 Weight 67.585 kg Intake: Oral 520 200 Other: Voiding Method Toilet Toilet Toilet # Voids 1 1 - Exam GENERAL: The patient is alert and oriented x3, appears in no acute distress, currently on 4 L via nasal cannula HEENT: Pupils are round and equally reacting to light. EOMI. No scleral icterus. No pallor. Throat exam- she has dentures, swelling improved CARDIOVASCULAR: S1 and S2 present. Bradycardia PULMONARY: Bilateral breath sounds diminished with some scattered rhonchi noted. ABDOMEN: Abdomen is soft. Nontender. Nondistended. Normal bowel sounds. MUSCULOSKELETAL: No joint swelling or deformity. EXTREMITIES: No cyanosis, clubbing, or pedal edema. NEUROLOGICAL: Gross neurological examination did not reveal any focal deficits. SKIN: No rashes. - Labs CBC & Chem 7: 10/04/20 09:40 10/04/20 09:39 Labs: Abnormal Lab Results - Last 24 Hours (Table) 10/04/20 10/04/20 Range/Units 09:39 09:40 Metamyelocytes # (Man) 0.08 H (0) k/uL Myelocytes # (Manual) 0.04 H (0) k/uL Sodium 134 L (137-145) mmol/L BUN 19 H (7-17) mg/dL Calcium 8.1 L (8.4-10.2) mg/dL Microbiology - Last 24 Hours (Table) 10/02/20 19:30 Gram Stain - Preliminary Sputum Sputum Culture - Preliminary 10/03/20 09:15 Blood Culture - Preliminary Blood No Growth after 24 hours Assessment and Plan Assessment: COVID-19 pneumonia, a she is maintained on Decadron received her last dose of remdesivir today, vitamin and zinc supplements along with Eliquis, currently 4 L of oxygen Acute obstructive Laryngitis with early tracheitis Leukopenia with lymphopenia Bradycardia Hyponatremia- resolved Transaminitis - trending down Elevated inflammatory markers History of atrial fibrillation Right breast cancer Lymphoma on immunotherapy Hyperlipidemia Hypertension GERD Thyroid disorder Hard of hearing History of breast surgery History of hysterectomy History of bowel resection Former smoker PLAN: Continue current medications. Patient is maintained on 20 mg IV Lasix twice daily as CT of the chest showed pleural effusions and pulmonary following. Patient currently on 4 L of oxygen via nasal cannula and discuss with nursing s taff about weaning as tolerated. multiple medical consultations following. Cardiology following as well for atrial fibrillation and discussed with patient today and states she does have a history of atrial fibrillation but was not on any medications or anticoagulation for it. She was started on metoprolol along with Eliquis. Patient currently receiving last dose of Remdesivir today.
[2020-10-04] MEDS ORDERED: IMMUNE GLOBULIN (GAMMAGARD) 20 GM in EMPTY BAG 1 BAG IV ONE (16:00)
[2020-10-04] MEDS: APIXABAN 2.5 MG TABLET PO SCH (19:54)
--- NOTE | 2020-10-04 20:12 | P.PN ---
Subjective Progress Note Date: 10/04/20 Principal diagnosis: Covid, Respiratory Failure Status post one dose IVIG, Afebrile Objective - Vital Signs Vital signs: Vital Signs Temp 98.3 F 10/04/20 19:37 Pulse 94 10/04/20 19:37 Resp 20 10/04/20 19:37 BP 127/76 10/04/20 19:37 Pulse Ox 94 L 10/04/20 14:00 Intake & Output 10/04/20 10/04/20 10/05/20 06:59 18:59 06:59 Intake Total 700 Balance 700 Weight 67.585 kg Intake: Oral 700 Other: Voiding Method Toilet Toilet Toilet # Voids 1 5 - Exam - Constitutional General appearance: Present: cooperative, mild distress - EENT Eyes: Present: EOMI ENT: Present: hard of hearing, NA/AT, normal oropharynx - Neck Neck: Present: lymphadenopathy - Respiratory Respiratory: bilateral: diminished, rhonchi, wheezing - Cardiovascular Rhythm: regularly irregular - Gastrointestinal General gastrointestinal: Present: soft - Integumentary Integumentary: Present: pale - Neurologic Neurologic: Present: CNII-XII intact - Musculoskeletal Musculoskeletal: Present: generalized weakness - Psychiatric Psychiatric: Present: A&O x's 3 - Labs CBC & Chem 7: 10/04/20 09:40 10/04/20 09:39 Labs: Abnormal Lab Results - Last 24 Hours (Table) 10/04/20 10/04/20 Range/Units 09:39 09:40 Metamyelocytes # (Man) 0.08 H (0) k/uL Myelocytes # (Manual) 0.04 H (0) k/uL Sodium 134 L (137-145) mmol/L BUN 19 H (7-17) mg/dL Calcium 8.1 L (8.4-10.2) mg/dL Microbiology - Last 24 Hours (Table) 10/02/20 19:30 Gram Stain - Preliminary Sputum Sputum Culture - Preliminary 10/03/20 09:15 Blood Culture - Preliminary Blood No Growth after 24 hours Assessment and Plan (1) Acute respiratory insufficiency Current Visit: Yes Status: Acute Code(s): R06.89 - OTHER ABNORMALITIES OF BREATHING SNOMED Code(s): 932854601 (2) COVID-19 Current Visit: Yes Status: Acute Code(s): U07.1 - COVID-19 SNOMED Code(s): 664417345 (3) Lymphoma Current Visit: Yes Status: Acute Code(s): C85.90 - NON-HODGKIN LYMPHOMA, UNSPECIFIED, UNSPECIFIED SITE SNOMED Code(s): 389840161 Plan: IgG 533 - Status POst 1/2 IVIG for additional immune support Monitor CMP COntinue supportive care Stable counts today no intervention
[2020-10-04] MEDS: TEMAZEPAM 15 MG CAP PO PRN (21:52)
--- NOTE | 2020-10-05 05:43 | PN ---
PROGRESS NOTE DATE OF SERVICE: 10/04/2020 REASON FOR FOLLOWUP: COVID-19 pneumonia. INTERVAL HISTORY: The patient is currently afebrile. The patient is feeling better compared to yesterday. The patient denies having any chest pain. No shortness of breath or cough. No nausea, vomiting. No abdominal pain or diarrhea. PHYSICAL EXAMINATION: VITAL SIGNS: Blood pressure 127/76 with a pulse of 94, temperature 98.3, 94% on 4 L nasal cannula. GENERAL DESCRIPTION: Patient is an elderly female lying in bed in no distress. LUNGS: Unlabored breathing, decreased intensity of breath sounds, no wheeze. HEART: S1-S2, regular rate and rhythm. ABDOMEN: Soft, no tenderness. LABS: Hemoglobin , white count: 4.1, BUN of 19, creatinine 0.90. IMPRESSION/PLAN: Patient with acute COVID-19 pneumonia patient has completed remdesivir therapy. Patient is currently on zinc, dexamethasone, Eliquis and to continue and monitor clinical course closely. Continue supportive care. MMODL / IJN: [id number] /
[2020-10-05] MEDS: LEVOTHYROXINE 100 MCG TAB PO SCH ×2 (05:48→05:51)
[2020-10-05] MEDS: ACETAMINOPHEN TAB 500 MG TAB PO PRN (05:50)
[2020-10-05] MEDS: METOPROLOL TARTRATE 12.5 MG TAB PO SCH (08:41)
[2020-10-05] MEDS: MULTIVITAMINS, THERA 1 EACH TAB PO SCH (08:41)
[2020-10-05] MEDS: FUROSEMIDE 10 MG/ML 2 ML VIAL IV SCH ×2 (08:41→19:58)
[2020-10-05] MEDS: ASCORBIC ACID 500 MG TAB PO SCH (08:41)
[2020-10-05] MEDS: ZINC SULFATE 220 MG CAP PO SCH (08:41)
[2020-10-05] MEDS: CHOLECALCIFEROL 25 MCG (1000 IU) TABLET PO SCH (08:41)
[2020-10-05] MEDS: DEXAMETHASONE SOD PHOSPHATE 10 MG/ML 1 ML VIAL IV SCH (08:41)
[2020-10-05] MEDS: CYANOCOBALAMIN 500 MCG TAB PO SCH (08:41)
[2020-10-05] MEDS: APIXABAN 2.5 MG TABLET PO SCH ×2 (08:41→19:58)
[2020-10-05 09:20] LABS: HCT 39.2 % (37.2-46.3); HGB 13.4 g/dL (12.0-15.0); MCH 30.7 pg (27.0-32.0); MCHC 34.2 g/dL (32.0-37.0); MCV 89.9 fL (80.0-97.0); Mean Platelet Volume 10.4 fL (9.5-12.2); Platelet Count 180 X 10*3/uL (140-440); RBC 4.36 X 10*6/uL (4.10-5.20); RDW 11.9 % (11.5-14.5); WBC 4.85 X 10*3/uL (4.50-10.00)
[2020-10-05 10:00] LABS: African American GFR (CKD) 67.6 (60.0-200.0); Albumin 3.1 g/dL (3.80-4.90); Albumin/Globulin Ratio 1.19 (1.60-3.17); Anion Gap 8.6 mmol/L (4.00-12.00); BUN/Creat Ratio 18.89 Ratio (12.00-20.00); Carbon Dioxide 26.4 mmol/L (21.6-31.8); Globulin 2.6 g/dL (1.6-3.3); Magnesium 1.7 mg/dL (1.5-2.4); Non-African American GFR(CKD) 58.3 (60.0-200.0); Total Bilirubin 0.4 mg/dL (0.3-1.2); Total Protein 5.7 g/dL (6.2-8.2)
[2020-10-05 11:31] LABS: Basophils # (M) 0 X 10*3/uL (0.00-0.10); Eosinophils # (M) 0 X 10*3/uL (0.04-0.35); Lymphocytes # (M) 0.24 X 10*3/uL (0.90-5.00); Monocytes # (M) 0.68 X 10*3/uL (0.20-1.00); Neutrophils # (M) 3.93 X 10*3/uL (2.00-8.90); Neutrophils % (M) 81 %
--- NOTE | 2020-10-05 12:41 | P.PN ---
Subjective This is a pleasant 85-year-old female past medical history significant for GERD, hypertension, hyperlipidemia, lymphoma receiving immunotherapy. She used to follow in the office with Dr. Casarez, last seen in 2018. She does not follow with a clerical dentist assistant at this time. We have been asked to see in consultation for new onset atrial fibrillation. It is in the patient's history that she has had atrial fibrillation, however, patient is not on anticoagulation and office notes do not mention any episodes of atrial fibrillation. Patient presents to the hospital with complaints of sore throat, felt her throat was closing off, lethargy, myalgias. Patient was recently diagnosis covid-19 infection 3 days ago and she states that her granddaughter was tested positive for covid-19. In the ER, CT of the soft tissue neck showing airway narrowing at the level of the vocal cords measuring up to 3.7 mm in the left apical lung mass. On 09/30, patient was found to be sinus bradycardia, HR 30s during her sleep. Per Nursing she has been getting bradycardic with Remdesivir medication. Laboratory data reviewed, sodium 1:30, potassium 4.0, creatinine 0.85, magnesium 2.1, elevated liver enzymes AST 94, PLT 171 , D-dimer 0.28 Vital signs blood pressure 118/82, heart rate 70s-120. Patient does not currently take any cardiac medications she is not on an anticoagulation DIAGNOSTICS Echocardiogram 02/2020 revealed left ventricular systolic function with an EF between 55-60%, mild aortic valve sclerosis, moderate AR, moderate MR, mild mitral stenosis, moderate TR, borderline pulmonary hypertension. Telemetry tracings indicate 10/02 around 1020am episode of atrial fibrillation RVR 170s. 10/03 another episode of atrial fibrillation with HR 160s. Patient also converts back at times to sinus tachycardia Chest xray Consistent with pneumonia On 10/04/20: Overnight A-Team called due to increased HR in the 160s, Patient noted to be in atrial fibrillation. Patient given one time dose of Lopressor 12.5mg PO. Troponin negative x 2, TSH 1.9, BNP 5330. Spoke with patient's and he states she has been told she has had atrial fibrillation before, but that it was controlled and "not critical where she had to do anything about". He doesn't recall her being on an anticoagulation or metoprolol. He does endorse some worries about a blood thinner due to his being very weak. 10/05/20: Patient's telemetry reviewed Patient continues to be in and out of atrial fibrillation. No episodes of tachycardia or Afib with RVR overnight. HR 90s-100s this morning. BP 122/75 afebrile, continues to require oxygen, currently on 4L nasal cannula. Laboratory data reviewed, WBC 4.8, hemoglobin 15.4, platelets 180, sodium 134, potassium 4.0, serum creatinine 0.9, magnesium 1.7, AST 52, ALT 12. Patient is currently maintained on metoprolol titrate 0.5 mg 3 times a day, Eliquis 2.5 mg twice a day PHYSICAL EXAMINATION Thorough physical exam not completed due to Covid-19, Patient discussed and chart reviewed ASSESSMENT Paroxysmal Atrial Fibrillation- -[id number] score 4 COVID-19 Hypertension Hyperlipidemia PLAN -Will change metoprolol to 25mg BID -Continue Eliquis 2.5mg BID- case management consulted and medication is covered with $4 copay -Continue cardiac telemetry -Patient will follow up outpatient with Dr. Duff. -We will sign off at this time. Please reach out for any further questions or concerns. Nurse Practitioner note has been reviewed, I agree with a documented findings and plan of care. Patient was seen and examined. Objective - Vital Signs Vital signs: Vital Signs Temp 98.1 F 10/05/20 08:00 Pulse 100 10/05/20 08:00 Resp 22 10/05/20 08:00 BP 122/75 10/05/20 08:00 Pulse Ox 90 L 10/05/20 08:00 Intake & Output 10/04/20 10/05/20 10/05/20 18:59 06:59 18:59 Intake Total 700 180 Balance 700 180 Weight 67.585 kg Intake: Oral 700 180 Other: Voiding Method Toilet Toilet Toilet # Voids 5 1 - Labs CBC & Chem 7: 10/05/20 05:57 10/05/20 05:57 Labs: Abnormal Lab Results - Last 24 Hours (Table) 10/04/20 10/04/20 10/05/20 Range/Units 09:39 09:40 05:57 Metamyelocytes # (Man) 0.08 H (0) k/uL Myelocytes # (Manual) 0.04 H (0) k/uL Sodium 134 L 134 L (137-145) mmol/L BUN 19 H (7-17) mg/dL Est GFR (CKD-EPI)NonAf 58.3 L (60.0-200.0) Glucose 138 H (70-110) mg/dL Calcium 8.1 L 8.0 L (8.4-10.2) mg/dL AST 52 H (13-35) U/L ALT 121 H (8-44) U/L Total Protein 5.7 L (6.2-8.2) g/dL Albumin 3.10 L (3.80-4.90) g/dL Albumin/Globulin Ratio 1.19 L (1.60-3.17) g/dL Microbiology - Last 24 Hours (Table) 10/02/20 19:30 Gram Stain - Preliminary Sputum Sputum Culture - Preliminary 10/03/20 09:15 Blood Culture - Preliminary Blood No Growth after 24 hours
[2020-10-05] MEDS: SENNOSIDES 8.6 MG TAB PO SCH ×2 (13:25→19:58)
--- NOTE | 2020-10-05 13:41 | P.PN ---
Subjective Progress Note Date: 10/05/20 Principal diagnosis: CoVID 19 pneumonia This is an 85-year-old female patient with a history of atrial fibrillation, COPD, lymphoma on active chemotherapy, hypothyroidism, hearing disorder, hyperlipidemia, right breast cancer, melanoma former smoker. She had presented to the emergency room back on 09/28/2020. We're consulted today for a chest x- ray showing possible pleural effusion. Computed tomography scan of the chest revealed bilateral patchy pneumonia with pleural effusions and basilar infiltrate and atelectasis. She is seen today on the regular medical floor. Currently sitting up in a chair at the bedside. Maintaining O2 saturation low 90s on 4 L/m per nasal cannula. She's afebrile. Sputum culture pending. Blood culture reveals no growth to date. White count 4.1. Hemoglobin 14.7. Sodium 134. Creatinine 0.90. Troponin is negative x 2. ProBNP 5330. She is initiated on Lasix 20 mg IV every 12 hours. Anticoagulated with Eliquis. Remains on vitamin supplements, dexamethasone. He has been initiated on Remdesivir. This is day number #4. The patient is seen today 10/05/2020 in follow-up on the regular medical floor. She is awake and alert in no acute distress. Still feeling quite weak and fatigued. Short of breath with exertion. She completed Remdesivir today. She remains on 4 L high flow nasal cannula to maintain O2 saturations in the 90s. Sputum culture revealed no growth. Blood cultures revealed no growth. White count 4.8. Hemoglobin 13.4. Sodium 134. Potassium 4.0. Creatinine 0.9. Remains on Decadron, Eliquis, vitamin supplements. Continued on IV diuretics. Objective - Vital Signs Vital signs: Vital Signs Temp 98.1 F 10/05/20 08:00 Pulse 100 10/05/20 08:00 Resp 22 10/05/20 08:00 BP 122/75 10/05/20 08:00 Pulse Ox 90 L 10/05/20 08:00 Intake & Output 10/04/20 10/05/20 10/05/20 18:59 06:59 18:59 Intake Total 700 180 Balance 700 180 Weight 67.585 kg Intake: Oral 700 180 Other: Voiding Method Toilet Toilet Toilet # Voids 5 1 - Exam GENERAL EXAM: Alert, frail, 85-year-old female patient, on 4 L nasal cannula comfortable in no apparent distress. HEAD: Normocephalic. EYES: Normal reaction of pupils, equal size. NOSE: Clear with pink turbinates. THROAT: No erythema or exudates. NECK: No masses, no JVD. CHEST: No chest wall deformity. LUNGS: Equal air entry with with crackles in the bilateral bases. CVS: S1 and S2 normal with no audible murmur, irregular rhythm. ABDOMEN: No hepatosplenomegaly, normal bowel sounds, no guarding or rigidity. SPINE: No scoliosis or deformity SKIN: No rashes CENTRAL NERVOUS SYSTEM: No focal deficits, tone is normal in all 4 extremities. EXTREMITIES: There is no peripheral edema. No clubbing, no cyanosis. Perip heral pulses are intact. - Labs CBC & Chem 7: 10/05/20 05:57 10/05/20 05:57 Labs: Abnormal Lab Results - Last 24 Hours (Table) 10/05/20 10/05/20 Range/Units 05:57 05:57 Lymphocytes # (Manual) 0.24 L (0.90-5.00) X 10*3/uL Eosinophils # (Manual) 0 L (0.04-0.35) X 10*3/uL Sodium 134 L (135-145) mmol/L Est GFR (CKD-EPI)NonAf 58.3 L (60.0-200.0) Glucose 138 H (70-110) mg/dL Calcium 8.0 L (8.7-10.3) mg/dL AST 52 H (13-35) U/L ALT 121 H (8-44) U/L Total Protein 5.7 L (6.2-8.2) g/dL Albumin 3.10 L (3.80-4.90) g/dL Albumin/Globulin Ratio 1.19 L (1.60-3.17) g/dL Microbiology - Last 24 Hours (Table) 10/03/20 09:15 Blood Culture - Preliminary Blood No Growth after 48 hours 10/02/20 19:30 Gram Stain - Final Sputum Sputum Culture - Final Assessment and Plan Assessment: 1 Acute hypoxemic respiratory failure secondary to CoVID 19 pneumonia, acute exacerbation of diastolic congestive heart failure 2 Paroxysmal atrial fibrillation anticoagulated with Eliquis 3 Hypertension 4 Hyperlipidemia 5 lymphoma with active chemotherapy 6 Hypothyroidism 7 Hyperlipidemia 8 Hearing disorder 9 Hypothyroidism 10 History of breast cancer 11 History of melanoma 12 Previous bowel resection 13 Poor overall functional performance based on the above-mentioned multiple comorbidities Plan: The patient was seen and evaluated by Dr. Salazar Titrate down the FiO2 as tolerated Completed Remdesivir Continue Decadron, vitamin supplements Anticoagulated with Eliquis Continued on IV diuretics No plans for thoracentesis at this time We will continue to follow and make further recommendations based on her clinical status I, the cosigning physician, performed a history & physical examination of the patient. Lungs sounds crackles in the bilateral posterior bases. Maintaining good O2 saturations in the 90s on 4 L/m per nasal cannula. I discussed the asse ssment and plan of care with my nurse practitioner, Aleshia Mancilla. I attest to the above note as dictated by her.
--- NOTE | 2020-10-05 16:22 | P.PN ---
Subjective Progress Note Date: 10/05/20 COVID Pneumonia Ms. Dudley is a 85-year-old female with a past medical history of atrial fibrillation, GERD, hypertension, hyperlipidemia, osteoarthritis, thyroid disorder, and breast cancer, melanoma of the face, osteoporosis, lymphoma receiving immunotherapy coming to the hospital stating that she has a sore throat and feels like that it is closing off on her. Patient states that she was diagnosed with Covid infection 3 to 4 days back, she states that her granddaughter was tested positive for Covid and she probably got it from her. She has also been feeling lethargic with myalgias. She denies having any fevers or chills. Her main complaint is that she feels that her throat is closing off and it has been difficult for her to breathe or swallow. Patient denies having any abdominal pain nausea vomiting or diarrhea. No dysuria or hematuria. In the ER patient had soft tissue neck CT showing airway narrowing at the level of vocal cords measuring up to 3.7 mm and the left apical lung mass. Patient was given a dose of Solu-Medrol and is admitted for further management. Patient's vitals at the time of admission temperature of 99.1, heart rate 63, rest rate 22 saturating at 95% on room air. On reviewing her labs white count of 2.2, hemoglobin 15.4, platelets 145. Sodium 130, potassium 4.4, chloride 102, bicarb 19. BUN is 10 and creatinine 0.95. CRP of 14.2. On 09/29/2020-patient was seen and examined at the bedside. She states that her throat tightness feels much better compared to yesterday. As per discussion with nursing staff, patient had difficulty swallowing her pills this morning. She crushed it in applesauce and give it to the patient. Patient states that difficulty in breathing is better. No chest pain or palpitations. No abdominal pain nausea vomiting or diarrhea. No dysuria or hematuria. On reviewing her vitals T-max of 98.6, heart rate 60s to 70s, respiratory 20, blood pressure 129/70 saturating at 94% on 2 L of oxygen. On reviewing the labs from this morning white count of 2, hemoglobin 14.5, platelets 116. Sodium 133, potassium 5.1, chloride 106, bicarb 21, BUN 14, creatinine 0.92. AST 314, ALT 284. CRP 27. On 09/30/2020 - patient was seen and examined at bedside. On reviewing the overnight telemetry, patient was found to have bradycardia heart rate as low as 30 in sinus rhythm, and this happened during her sleep. Patient denies having any chest pain or palpitations. She has mild difficulty in breathing along with mild dry cough. No abdominal pain nausea vomiting or diarrhea. No dysuria or hematuria. On reviewing her vitals T-max of 98.9, heart rate 30s to 50s, respiratory rate 18, blood pressure 1 32 x 68, saturating at 94% on room air. On reviewing her labs- white count of 1.97, hemoglobin 12.4, platelets 105. Sodium 139, potassium 4.3, chloride 108, bicarbonate 25, BUN 15, creatinine 0.9. AST 101, ALT 194, LDH 208, CRP 0.9. 10/01/2020 Patient is seen and evaluated in follow-up currently sitting up in the chair status post is working with physical therapy. Patient will require a walker for gait dysfunction. Patient is currently maintained on 2 L of oxygen via nasal cannula at 96% oxygenation. Patient states she has had oxygen at home in the past although returned it as it was not needed. Patient may need home oxygen was stabilized and discharged. Patient is being followed by infectious disease and currently maintained on Remdesivir along with dexamethasone, Lovenox, vitamin C and zinc supplements and will continue at this time. Patient was seen and evaluated by ENT Dr. Diaz she had some increase swelling and edema noted in her airway passage although has improved she states significantly with steroids. Patient continues to have some tenderness of the oral pharynx although states is tolerating diet with no difficulties in swallowing. Inflammatory markers trending down and liver functions trending down as well. 10/03/2019 Patient remains on 2 L of oxygen feeling bit better. We will continue to wean off oxygen possibility of discharge in a day or 2 10/03/2020 Patient is seen and evaluated this morning currently requiring more oxygen and has continued cough and chest pain that radiates to her back. 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 Patient will be given a dose of IV Lasix and monitored closely. She continues to be on 5 L of oxygen and is receiv ing Remdesivir. Infectious disease is following and will consult pulmonary. Cardiology also consulted as patient has been in and out of A. fib with RVR and was started on metoprolol. Patient was also noted to have a low-grade fever today. Patient's overall appearance is ill-appearing. Patient denies history of aneurysm. 10/04/2020 Patient is seen in follow-up this morning appears slightly improved from yesterday. Pulmonary was consulted and now following along with infectious disease and cardiology. Patient continues to be in atrial fibrillation and was initiated on metoprolol by cardiology and is being started on anticoagulant Eliquis. Patient is currently maintained on 4 L of oxygen via nasal cannula and denies any worsening shortness of breath. Patient states she has a continued cough and was having some back discomfort although has improved from yesterday. Patient was started on 20 mg IV Lasix twice daily and will continue at this time. Patient was also on IV fluids which were discontinued. Patient is tolerating diet and drinking with no reports of nausea or vomiting noted. BNP was done yesterday showing 5330. Sodium today is 134 with a potassium of 3.7 and current creatinine is 0.9. CBC within normal limits. Patient is afebrile. 10/05/2020 Patient is seen in follow-up and is lethargic and weak today and is currently maintained on 4 L of oxygen. Patient is also continued on IV Lasix twice daily and will continue. Will repeat a.m. chest x-ray and continue to wean FiO2 as tolerated. Patient recently completed Remdesivir is maintained on Eliquis for anticoagulation along with vitamin and zinc supplements and will continue. Multiple medical consultations following including infectious disease, pulmonary, and cardiology. Labs today within normal limits. Patient also continues to be dyspneic with minimal exertion. Review of systems: Constitutional: reports fatigue, and fever, or chills Cardiovascular: Reports chest pain or palpitations Respiratory: Reports shortness of breath and cough although feels has slightly improved GI: No reports of nausea, vomiting, or diarrhea : No reports of dysuria or retention Neurovascular: No reports of weakness or numbness All medications have been reviewed Objective - Vital Signs Vital signs: Vital Signs Temp 98.1 F 10/05/20 08:00 Pulse 100 10/05/20 08:00 Resp 22 04/02/21 08:00 BP 122/75 10/05/20 08:00 Pulse Ox 90 L 10/05/20 08:00 Intake & Output 10/04/20 10/05/20 10/05/20 18:59 06:59 18:59 Intake Total 700 Balance 700 Weight 67.585 kg Intake: Oral 700 Other: Voiding Method Toilet Toilet # Voids 5 1 - Exam GENERAL: The patient is alert and oriented x3, appears in no acute distress, currently on 4 L via nasal cannula HEENT: Pupils are round and equally reacting to light. EOMI. No scleral icterus. No pallor. Throat exam- she has dentures, swelling improved CARDIOVASCULAR: S1 and S2 present. Bradycardia PULMONARY: Bilateral breath sounds diminished with some scattered rhonchi noted. ABDOMEN: Abdomen is soft. Nontender. Nondistended. Normal bowel sounds. MUSCULOSKELETAL: No joint swelling or deformity. EXTREMITIES: No cyanosis, clubbing, or pedal edema. NEUROLOGICAL: Gross neurological examination did not reveal any focal deficits. Diffusely weak SKIN: No rashes. - Labs CBC & Chem 7: 10/05/20 05:57 10/05/20 05:57 Labs: Abnormal Lab Results - Last 24 Hours (Table) 10/04/20 10/04/20 Range/Units 09:39 09:40 Metamyelocytes # (Man) 0.08 H (0) k/uL Myelocytes # (Manual) 0.04 H (0) k/uL Sodium 134 L (137-145) mmol/L BUN 19 H (7-17) mg/dL Calcium 8.1 L (8.4-10.2) mg/dL Microbiology - Last 24 Hours (Table) 10/02/20 19:30 Gram Stain - Preliminary Sputum Sputum Culture - Preliminary 10/03/20 09:15 Blood Culture - Preliminary Blood No Growth after 24 hours Assessment and Plan Assessment: COVID-19 pneumonia, a she is maintained on Decadron received her last dose of remdesivir today, vitamin and zinc supplements along with Eliquis, currently 4 L of oxygen Acute obstructive Laryngitis with early tracheitis Leukopenia with lymphopenia Bradycardia Hyponatremia- resolved Transaminitis - trending down Elevated inflammatory markers History of atrial fibrillation Right breast cancer Lymphoma on immunotherapy Hyperlipidemia Hypertension GERD Thyroid disorder Hard of hearing History of breast surgery History of hysterectomy History of bowel resection Former smoker PLAN: Continue current medications. Patient is maintained on 20 mg IV Lasix twice daily as CT of the chest showed pleural effusions and pulmonary following. Patient currently on 4 L of oxygen via nasal cannula and discuss with nursing staff about weaning as tolerated. multiple medical consultations following. Cardiology following as well. She was started on metoprolol along with Eliquis. Patient recently received last dose of Remdesivir. Labs within normal limits today and will repeat a.m. labs and chest x-ray. Will need PT/OT to reevaluate the patient as patient continues to be extremely weak and may require ECF for rehab once stabilized and discharged. Will discuss with her about the treatment plan.
--- NOTE | 2020-10-05 19:37 | PN ---
PROGRESS NOTE DATE OF SERVICE: 10/05/2020 REASON FOR FOLLOWUP: COVID-19 pneumonia. INTERVAL HISTORY: The patient is currently afebrile. The patient is breathing more comfortably today. The patient denies having any chest pain. She did have occasional cough; not much sputum. No abdominal pain and no diarrhea. PHYSICAL EXAMINATION: Blood pressure 112/53, pulse of 83, temperature 97.8. She is 93% on 4 L nasal cannula. General description is an elderly female lying in bed in no distress. RESPIRATORY SYSTEM: Unlabored breathing with decreased breath sounds at the base. No wheeze. HEART: S1, S2. Regular rate and rhythm. ABDOMEN: Soft. No tenderness. LABS: Hemoglobin is 13.4, white count 4.85, BUN of 17, creatinine 0.9. DIAGNOSTIC IMPRESSION AND PLAN: Patient with acute COVID-19 pneumonia in this patient who has completed her remdesivir therapy. The patient is currently on dexamethasone, zinc, Eliquis, ascorbic acid; to continue along with respiratory support. Monitor clinical course closely. MMODL / IJN: [id number] /
[2020-10-05] MEDS: METOPROLOL TARTRATE 25 MG TAB PO SCH (19:58)
[2020-10-05] MEDS: TEMAZEPAM 15 MG CAP PO PRN (22:13)
[2020-10-06] MEDS: MORPHINE SULFATE 4 MG/ML SYRINGE IV PRN (02:09)
[2020-10-06] MEDS: LEVOTHYROXINE 100 MCG TAB PO SCH (06:03)
--- NOTE | 2020-10-06 07:01 | XR ---
EXAMINATION TYPE: XR chest 1V portable DATE OF EXAM: 10/06/2020 COMPARISON: 10/04/2020 HISTORY: Covid pneumonia/CHF TECHNIQUE: Single frontal view of the chest is obtained. FINDINGS: There is moderate diffuse interstitial opacity predominantly in the upper lung zones uncha nged since the prior study. Is a central line tip in the SVC/RA junction unchanged in position. The heart size is normal for the technique. There is no pneumothorax. There is no large pleural effus ions. The osseous structures are intact IMPRESSION: Upper lung zone opacities as described above essentially unchanged since the prior study .
[2020-10-06 08:57] LABS: Basophils # (A) 0.01 X 10*3/uL (0.00-0.10); Basophils % (A) 0.1 %; Eosinophils # (A) 0 X 10*3/uL (0.04-0.35); Eosinophils % (A) 0 %; HCT 41.1 % (37.2-46.3); HGB 13.9 g/dL (12.0-15.0); Lymphocytes # (A) 0.69 X 10*3/uL (0.90-5.00); Lymphocytes % (A) 9.8 %; MCH 30.7 pg (27.0-32.0); MCHC 33.8 g/dL (32.0-37.0); MCV 90.7 fL (80.0-97.0); Mean Platelet Volume 10.2 fL (9.5-12.2); Monocytes # (A) 0.93 X 10*3/uL (0.20-1.00); Monocytes % (A) 13.2 %; Neutrophils # (A) 5.18 X 10*3/uL (1.80-7.70); Neutrophils % (A) 73.9 %; Platelet Count 206 X 10*3/uL (140-440); RBC 4.53 X 10*6/uL (4.10-5.20); WBC 7.02 X 10*3/uL (4.50-10.00)
[2020-10-06] MEDS: APIXABAN 2.5 MG TABLET PO SCH ×2 (09:20→20:29)
[2020-10-06] MEDS: ZINC SULFATE 220 MG CAP PO SCH (09:20)
[2020-10-06] MEDS: METOPROLOL TARTRATE 25 MG TAB PO SCH ×2 (09:20→20:28)
[2020-10-06] MEDS: CYANOCOBALAMIN 500 MCG TAB PO SCH (09:20)
[2020-10-06] MEDS: ACETAMINOPHEN TAB 500 MG TAB PO PRN (09:20)
[2020-10-06] MEDS: SENNOSIDES 8.6 MG TAB PO SCH ×2 (09:20→20:29)
[2020-10-06] MEDS: CHOLECALCIFEROL 25 MCG (1000 IU) TABLET PO SCH (09:21)
[2020-10-06] MEDS: MULTIVITAMINS, THERA 1 EACH TAB PO SCH (09:21)
[2020-10-06] MEDS: FUROSEMIDE 10 MG/ML 2 ML VIAL IV SCH ×2 (09:21→20:29)
[2020-10-06] MEDS: ASCORBIC ACID 500 MG TAB PO SCH (09:21)
[2020-10-06] MEDS: DEXAMETHASONE SOD PHOSPHATE 10 MG/ML 1 ML VIAL IV SCH (09:23)
--- NOTE | 2020-10-06 09:34 | P.PN ---
Subjective Progress Note Date: 10/06/20 Principal diagnosis: Shortness of breath, cough. This is an 85-year-old female patient with a history of atrial fibrillation, COPD, lymphoma on active chemotherapy, hypothyroidism, hearing disorder, hyperlipidemia, right breast cancer, melanoma former smoker. She had presented to the emergency room back on 09/28/2020. We're consulted today for a chest x- ray showing possible pleural effusion. Computed tomography scan of the chest revealed bilateral patchy pneumonia with pleural effusions and basilar infiltrate and atelectasis. She is seen today on the regular medical floor. Currently sitting up in a chair at the bedside. Maintaining O2 saturation low 90s on 4 L/m per nasal cannula. She's afebrile. Sputum culture pending. Blood culture reveals no growth to date. White count 4.1. Hemoglobin 14.7. Sodium 134. Creatinine 0.90. Troponin is negative x 2. ProBNP 5330. She is initiated on Lasix 20 mg IV every 12 hours. Anticoagulated with Eliquis. Remains on vitamin supplements, dexamethasone. He has been initiated on Remdesivir. This is day number #4. The patient is seen today 10/05/2020 in follow-up on the regular medical floor. She is awake and alert in no acute distress. Still feeling quite weak and fatigued. Short of breath with exertion. She completed Remdesivir today. She remains on 4 L high flow nasal cannula to maintain O2 saturations in the 90s. Sputum culture revealed no growth. Blood cultures revealed no growth. White count 4.8. Hemoglobin 13.4. Sodium 134. Potassium 4.0. Creatinine 0.9. Remains on Decadron, Eliquis, vitamin supplements. Continued on IV diuretics. Progress note dated 10/06/2020. 5-year-old female, with a history of multiple medical problems including acute hypoxemic respiratory failure secondary to COVID 19 pneumonia, diastolic CHF, paroxysmal atrial fibrillation, hypertension, hyperlipidemia, lymphoma, hypothyroidism, hyperlipidemia, deafness, hypothyroidism, breast cancer, melanoma, and bowel resection. The patient states that she is feeling a bit better. She looks quite weak. She's on 4 L nasal cannula. Her saturations are reasonable. She's getting saline at 20 mL an hour. She apparently did have a significant coughing spell last night. Overall though, she does feel improved. She did complete REM. White count 7.02, hemoglobin 13.9, hematocrit 41.1, platelet count 206,000. D-dimer 0.27. I could not view the chest x-ray today, but the report mentions upper lung zone opacities which are unchanged compared to an x-ray done on October 04. Objective - Vital Signs Vital signs: Vital Signs Temp 97.9 F 10/06/20 00:24 Pulse 68 10/06/20 00:24 Resp 20 10/06/20 00:24 BP 141/63 10/06/20 00:24 Pulse Ox 90 L 10/06/20 00:24 Intake & Output 10/05/20 10/06/20 10/06/20 18:59 06:59 18:59 Intake Total 480 Balance 480 Intake: Oral 480 Other: Voiding Method Toilet Toilet # Voids 4 2 # Bowel Movements 0 - Exam No acute distress, oriented 3. Frail appearing. Currently on 4 L nasal cannula. HEENT examination is grossly unremarkable. Mucous membranes are moist. No oral lesions. Neck supple. Full range of motion. No adenopathy thyromegaly or neck vein distention. Cardiovascular examination reveals an irregular rhythm and rate. S1-S2 normal. No S3 or S4. No discernible murmur noted. Heart sounds distant, heart rate 68 bpm. Lungs reveal no evidence of rhonchi or wheezes. There are bibasilar crackles. The patient is not in any respiratory distress. Saturations 90% Abdomen soft bowel sounds are heard. No masses or tenderness. Extremities are intact. No cyanosis clubbing or edema. Skin is without rash or lesion. Neurologic examination is brief but nonfocal. - Labs CBC & Chem 7: 10/06/20 06:09 10/05/20 05:57 Labs: Abnormal Lab Results - Last 24 Hours (Table) 10/05/20 10/05/20 10/06/20 Range/Units 05:57 05:57 06:09 Immature Gran # 0.21 H (0.00-0.04) X 10*3/uL Lymphocytes # 0.69 L (0.90-5.00) X 10*3/uL Lymphocytes # (Manual) 0.24 L (0.90-5.00) X 10*3/uL Eosinophils # 0 L (0.04-0.35) X 10*3/uL Eosinophils # (Manual) 0 L (0.04-0.35) X 10*3/uL Sodium 134 L (135-145) mmol/L Est GFR (CKD-EPI)NonAf 58.3 L (60.0-200.0) Glucose 138 H (70-110) mg/dL Calcium 8.0 L (8.7-10.3) mg/dL AST 52 H (13-35) U/L ALT 121 H (8-44) U/L Total Protein 5.7 L (6.2-8.2) g/dL Albumin 3.10 L (3.80-4.90) g/dL Albumin/Globulin Ratio 1.19 L (1.60-3.17) g/dL Microbiology - Last 24 Hours (Table) 10/03/20 09:15 Blood Culture - Preliminary Blood No Growth after 48 hours 10/02/20 19:30 Gram Stain - Final Sputum Sputum Culture - Final Assessment and Plan Assessment: Acute hypoxemic respiratory failure, secondary to COVID 19 pneumonia, and complicated by acute exacerbation of diastolic congestive heart failure. Paroxysmal atrial fibrillation. Benign essential hypertension. Hyperlipidemia. History of lymphoma. Hypothyroidism. Hyperlipidemia. Deafness. Hypothyroidism. History of breast cancer. History of melanoma. History of bowel resection. General medical debility. Plan: Plan dated 10/06/2020. The patient's oxygen has been titrated down, to accept saturations of 90% or greater. The patient has completed her REM. She continues on Decadron, vitamin C, vitamin D3, and zinc. She is ready anticoagulated with a factor X a inhibitor. No plans for thoracentesis at this time. Continue IV diuretics. We will continue to follow. Prognosis is guarded. The patient appears to be very frail, but she does feel a bit better. Time with Patient: Less than 30
[2020-10-06 09:36] LABS: African American GFR (CKD) 77.9 (60.0-200.0); Anion Gap 8.9 mmol/L (4.00-12.00); BUN/Creat Ratio 26.25 Ratio (12.00-20.00); Carbon Dioxide 30.1 mmol/L (21.6-31.8); Non-African American GFR(CKD) 67.2 (60.0-200.0); Potassium 3.9 mmol/L (3.5-5.5)
--- NOTE | 2020-10-06 15:57 | P.PN ---
Subjective COVID Pneumonia Ms. Dudley is a 85-year-old female with a past medical history of atrial fibrillation, GERD, hypertension, hyperlipidemia, osteoarthritis, thyroid disorder, and breast cancer, melanoma of the face, osteoporosis, lymphoma receiving immunotherapy coming to the hospital stating that she has a sore throat and feels like that it is closing off on her. Patient states that she was diagnosed with Covid infection 3 to 4 days back, she states that her granddaughter was tested positive for Covid and she probably got it from her. She has also been feeling lethargic with myalgias. She denies having any fevers or chills. Her main complaint is that she feels that her throat is closing off and it has been difficult for her to breathe or swallow. Patient denies having any abdominal pain nausea vomiting or diarrhea. No dysuria or hematuria. In the ER patient had soft tissue neck CT showing airway narrowing at the level of vocal cords measuring up to 3.7 mm and the left apical lung mass. Patient was given a dose of Solu-Medrol and is admitted for further management. Patient's vitals at the time of admission temperature of 99.1, heart rate 63, rest rate 22 saturating at 95% on room air. On reviewing her labs white count of 2.2, hemoglobin 15.4, platelets 145. Sodium 130, potassium 4.4, chloride 102, bicarb 19. BUN is 10 and creatinine 0.95. CRP of 14.2. On 09/29/2020-patient was seen and examined at the bedside. She states that her throat tightness feels much better compared to yesterday. As per discussion with nursing staff, patient had difficulty swallowing her pills this morning. She crushed it in applesauce and give it to the patient. Patient states that difficulty in breathing is better. No chest pain or palpitations. No abdominal pain nausea vomiting or diarrhea. No dysuria or hematuria. On reviewing her vitals T-max of 98.6, heart rate 60s to 70s, respiratory 20, blood pressure 129/70 saturating at 94% on 2 L of oxygen. On reviewing the labs from this morning white count of 2, hemoglobin 14.5, platelets 116. Sodium 133, potassium 5.1, chloride 106, bicarb 21, BUN 14, creatinine 0.92. AST 314, ALT 284. CRP 27. On 09/30/2020 - patient was seen and examined at bedside. On reviewing the overnight telemetry, patient was found to have bradycardia heart rate as low as 30 in sinus rhythm, and this happened during her sleep. Patient denies having any chest pain or palpitations. She has mild difficulty in breathing along with mild dry cough. No abdominal pain nausea vomiting or diarrhea. No dysuria or hematuria. On reviewing her vitals T-max of 98.9, heart rate 30s to 50s, resp iratory rate 18, blood pressure 1 32 x 68, saturating at 94% on room air. On reviewing her labs- white count of 1.97, hemoglobin 12.4, platelets 105. Sodium 139, potassium 4.3, chloride 108, bicarbonate 25, BUN 15, creatinine 0.9. AST 101, ALT 194, LDH 208, CRP 0.9. 10/01/2020 Patient is seen and evaluated in follow-up currently sitting up in the chair status post is working with physical therapy. Patient will require a walker for gait dysfunction. Patient is currently maintained on 2 L of oxygen via nasal cannula at 96% oxygenation. Patient states she has had oxygen at home in the past although returned it as it was not needed. Patient may need home oxygen was stabilized and discharged. Patient is being followed by infectious disease and currently maintained on Remdesivir along with dexamethasone, Lovenox, vitamin C and zinc supplements and will continue at this time. Patient was seen and evaluated by ENT Dr. Diaz she had some increase swelling and edema noted in her airway passage although has improved she states significantly with steroids. Patient continues to have some tenderness of the oral pharynx although states is tolerating diet with no difficulties in swallowing. Inflammatory markers trending down and liver functions trending down as well. 10/03/2019 Patient remains on 2 L of oxygen feeling bit better. We will continue to wean off oxygen possibility of discharge in a day or 2 10/03/2020 Patient is seen and evaluated this morning currently requiring more oxygen and has continued cough and chest pain that radiates to her back. 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 Patient will be given a dose of IV Lasix and monitored closely. She continues to be on 5 L of oxygen and is receiving Remdesivir. Infectious disease is following and will consult pulmonary. Cardiology also consulted as patient has been in and out of A. fib with RVR and was started on metoprolol. Patient was also noted to have a low- grade fever today. Patient's overall appearance is ill-appearing. Patient denies history of aneurysm. 10/04/2020 Patient is seen in follow-up this morning appears slightly improved from yesterday. Pulmonary was consulted and now following along with infectious disease and cardiology. Patient continues to be in atrial fibrillation and was initiated on metoprolol by cardiology and is being started on anticoagulant Eliquis. Patient is currently maintained on 4 L of oxygen via nasal cannula and denies any worsening shortness of breath. Patient states she has a continued cough and was having some back discomfort although has improved from yesterday. Patient was started on 20 mg IV Lasix twice daily and will continue at this time. Patient was also on IV fluids which were discontinued. Patient is tolerating diet and drinking with no reports of nausea or vomiting noted. BNP was done yesterday showing 5330. Sodium today is 134 with a potassium of 3.7 and current creatinine is 0.9. CBC within normal limits. Patient is afebrile. 10/05/2020 Patient is seen in follow-up and is lethargic and weak today and is currently maintained on 4 L of oxygen. Patient is also continued on IV Lasix twice daily and will continue. Will repeat a.m. chest x-ray and continue to wean FiO2 as tolerated. Patient recently completed Remdesivir is maintained on Eliquis for anticoagulation along with vitamin and zinc supplements and will continue. Multiple medical consultations following including infectious disease, pulmonary, and cardiology. Labs today within normal limits. Patient also continues to be dyspneic with minimal exertion. 10/06/2020 Patient remains on 4 L of oxygen appears to be doing well but will may require subacute rehabilitation, discussed and updated her yesterday was hoping that patient can come home soon. Patient also feels little bit weak Review of systems: Constitutional: reports fatigue, and fever, or chills Cardiovascular: Reports chest pain or palpitations Respiratory: Reports shortness of breath and cough although feels has slightly improved GI: No reports of nausea, vomiting, or diarrhea : No reports of dysuria or retention Neurovascular: No reports of weakness or numbness All medications have been reviewed Objective - Vital Signs Vital signs: Vital Signs Temp 97.0 F L 10/06/20 08:00 Pulse 92 10/06/20 08:00 Resp 18 10/06/20 08:00 BP 116/60 10/06/20 08:00 Pulse Ox 93 L 10/06/20 08:00 Intake & Output 10/05/20 10/06/20 10/06/20 18:59 06:59 18:59 Intake Total 480 180 Balance 480 180 Intake: Oral 480 180 Other: Voiding Method Toilet Toilet # Voids 4 2 # Bowel Movements 0 - Exam GENERAL: The patient is alert and oriented x3, not in any acute distress. HEENT: Pupils are round and equally reacting to light. EOMI. No scleral icterus. No pallor. Throat exam- she has dentures, swelling improved CARDIOVASCULAR: S1 and S2 present. Bradycardia PULMONARY: Bilateral breath sounds diminished with some scattered rhonchi. ABDOMEN: Abdomen is soft. Nontender. Nondistended. Normal bowel sounds. MUSCULOSKELETAL: No joint swelling or deformity. EXTREMITIES: No cyanosis, clubbing, or pedal edema. NEUROLOGICAL: Gross neurological examination did not reveal any focal deficits. SKIN: No rashes. - Labs CBC & Chem 7: 10/06/20 06:09 10/06/20 06:09 Labs: Abnormal Lab Results - Last 24 Hours (Table) 10/06/20 10/06/20 10/06/20 Range/Units 06:09 06:09 06:09 Immature Gran # 0.21 H (0.00-0.04) X 10*3/uL Lymphocytes # 0.69 L (0.90-5.00) X 10*3/uL Eosinophils # 0 L (0.04-0.35) X 10*3/uL BUN/Creatinine Ratio 26.25 H (12.00-20.00) Ratio Lactate Dehydrogenase 384 H (120-246) U/L Procalcitonin 0.16 H (0.02-0.09) ng/mL Microbiology - Last 24 Hours (Table) 10/03/20 09:15 Blood Culture - Preliminary Blood No Growth after 72 hours Assessment and Plan Plan: COVID-19 pneumonia: Patient is on Decadron, Remdesivir, Covid vitamins. Patient is presently on 2 L of oxygen continue to wean off 50 saturating at 93% is still a chance of worsening because of which patient is not being discharged at this time. Acute obstructive Laryngitis with tracheitis Leukopenia with lymphopenia Bradycardia, mild sinus secondary to Remdesivir, improved now completed Remdesivir Hyponatremia- resolved, hypovolemic hyponatremia improved Transaminitis - trending down Elevated inflammatory markers History of atrial fibrillation Right breast cancer Lymphoma on immunotherapy Hyperlipidemia Hypertension GERD Thyroid disorder Former smoker Patient was seen and evaluated by PT/OT therapy and will require a walker upon discharge for steady gait. Overall prognosis is guarded secondary to her age and chronic medical conditions.
--- NOTE | 2020-10-06 21:49 | PN ---
PROGRESS NOTE DATE OF SERVICE: 10/06/2020 REASON FOR FOLLOWUP: COVID-19 pneumonia. INTERVAL HISTORY: Patient is currently afebrile. She is breathing comfortably. Patient denies having any chest pain, shortness of breath or cough. No abdominal pain. No diarrhea. PHYSICAL EXAMINATION: Blood pressure 116/72 with a pulse of 92. Temperature is 97.8. She is 92% on 4 L. General description is an elderly female lying in bed in no distress. Respiratory system: Unlabored breathing. Clear to auscultation anteriorly. Heart S1, S2. Regular rate and rhythm. ABDOMEN: Soft. No tenderness. LABS: Hemoglobin 13.1, white count 7.02. BUN of 21, creatinine 0.8. DIAGNOSTIC IMPRESSION/PLAN: Patient with acute COVID-19 infection in this patient who has completed her Remdesivir therapy, currently covered with dexamethasone, Eliquis, zinc and ascorbic acid to continue along with respiratory support and monitor clinical course closely. MMODL / IJN: [id number] /
[2020-10-06] MEDS: TEMAZEPAM 15 MG CAP PO PRN (22:00)
[2020-10-07] MEDS: MORPHINE SULFATE 4 MG/ML SYRINGE IV PRN (04:47)
[2020-10-07] MEDS: LEVOTHYROXINE 100 MCG TAB PO SCH (05:57)
[2020-10-07] MEDS: METOPROLOL TARTRATE 25 MG TAB PO SCH (07:43)
[2020-10-07] MEDS: FUROSEMIDE 10 MG/ML 2 ML VIAL IV SCH (07:44)
[2020-10-07] MEDS: APIXABAN 2.5 MG TABLET PO SCH ×2 (07:44→20:09)
[2020-10-07] MEDS: DEXAMETHASONE SOD PHOSPHATE 10 MG/ML 1 ML VIAL IV SCH (07:44)
[2020-10-07] MEDS ORDERED: METOPROLOL TARTRATE 5 MG/5 ML VIAL IVP ONE (07:46)
--- NOTE | 2020-10-07 08:29 | XR ---
EXAMINATION TYPE: XR chest 1V portable DATE OF EXAM: 10/07/2020 COMPARISON: 10/06/2020 HISTORY: Shortness of breath. TECHNIQUE: Single frontal view of the chest is obtained. FINDINGS: There is mild increase of bilateral diffuse, patchy airspace opacities most pronounced in the upper midlungs. No pleural effusion, or pneumothorax seen. The cardiac silhouette size is within normal limits. The osseous structures are intact. The left IJ port catheter remains in place. Stab le left axillary surgical clips. IMPRESSION: Mild worsening of bilateral airspace opacities.
[2020-10-07 08:49] LABS: African American GFR (CKD) 49 (>60 ml/min/1.73 sqM); Anion Gap 10 mmol/L; Blood Urea Nitrogen 24 mg/dL (7-17); C Reactive Protein 70.6 mg/L (<10.0); Calcium 9.3 mg/dL (8.4-10.2); Carbon Dioxide 31 mmol/L (22-30); Chloride 93 mmol/L (98-107); Glucose 107 mg/dL (74-99); LDH 1283 U/L (313-618); Magnesium 1.5 mg/dL (1.6-2.3); Non-African American GFR(CKD) 43 (>60 ml/min/1.73 sqM); Potassium 4.2 mmol/L (3.5-5.1); Sodium 134 mmol/L (137-145)
[2020-10-07] MEDS ORDERED: METOPROLOL TARTRATE 25 MG TAB PO STA (11:27)
--- NOTE | 2020-10-07 12:05 | P.PN ---
Subjective COVID Pneumonia Ms. Dudley is a 85-year-old female with a past medical history of atrial fibrillation, GERD, hypertension, hyperlipidemia, osteoarthritis, thyroid disorder, and breast cancer, melanoma of the face, osteoporosis, lymphoma receiving immunotherapy coming to the hospital stating that she has a sore throat and feels like that it is closing off on her. Patient states that she was diagnosed with Covid infection 3 to 4 days back, she states that her granddaughter was tested positive for Covid and she probably got it from her. She has also been feeling lethargic with myalgias. She denies having any fevers or chills. Her main complaint is that she feels that her throat is closing off and it has been difficult for her to breathe or swallow. Patient denies having any abdominal pain nausea vomiting or diarrhea. No dysuria or hematuria. In the ER patient had soft tissue neck CT showing airway narrowing at the level of vocal cords measuring up to 3.7 mm and the left apical lung mass. Patient was given a dose of Solu-Medrol and is admitted for further management. Patient's vitals at the time of admission temperature of 99.1, heart rate 63, rest rate 22 saturating at 95% on room air. On reviewing her labs white count of 2.2, hemoglobin 15.4, platelets 145. Sodium 130, potassium 4.4, chloride 102, bicarb 19. BUN is 10 and creatinine 0.95. CRP of 14.2. On 09/29/2020-patient was seen and examined at the bedside. She states that her throat tightness feels much better compared to yesterday. As per discussion with nursing staff, patient had difficulty swallowing her pills this morning. She crushed it in applesauce and give it to the patient. Patient states that difficulty in breathing is better. No chest pain or palpitations. No abdominal pain nausea vomiting or diarrhea. No dysuria or hematuria. On reviewing her vitals T-max of 98.6, heart rate 60s to 70s, respiratory 20, blood pressure 129/70 saturating at 94% on 2 L of oxygen. On reviewing the labs from this morning white count of 2, hemoglobin 14.5, platelets 116. Sodium 133, potassium 5.1, chloride 106, bicarb 21, BUN 14, creatinine 0.92. AST 314, ALT 284. CRP 27. On 09/30/2020 - patient was seen and examined at bedside. On reviewing the overnight telemetry, patient was found to have bradycardia heart rate as low as 30 in sinus rhythm, and this happened during her sleep. Patient denies having any chest pain or palpitations. She has mild difficulty in breathing along with mild dry cough. No abdominal pain nausea vomiting or diarrhea. No dysuria or hematuria. On reviewing her vitals T-max of 98.9, heart rate 30s to 50s, resp iratory rate 18, blood pressure 1 32 x 68, saturating at 94% on room air. On reviewing her labs- white count of 1.97, hemoglobin 12.4, platelets 105. Sodium 139, potassium 4.3, chloride 108, bicarbonate 25, BUN 15, creatinine 0.9. AST 101, ALT 194, LDH 208, CRP 0.9. 10/01/2020 Patient is seen and evaluated in follow-up currently sitting up in the chair status post is working with physical therapy. Patient will require a walker for gait dysfunction. Patient is currently maintained on 2 L of oxygen via nasal cannula at 96% oxygenation. Patient states she has had oxygen at home in the past although returned it as it was not needed. Patient may need home oxygen was stabilized and discharged. Patient is being followed by infectious disease and currently maintained on Remdesivir along with dexamethasone, Lovenox, vitamin C and zinc supplements and will continue at this time. Patient was seen and evaluated by ENT Dr. Diaz she had some increase swelling and edema noted in her airway passage although has improved she states significantly with steroids. Patient continues to have some tenderness of the oral pharynx although states is tolerating diet with no difficulties in swallowing. Inflammatory markers trending down and liver functions trending down as well. 10/03/2019 Patient remains on 2 L of oxygen feeling bit better. We will continue to wean off oxygen possibility of discharge in a day or 2 10/03/2020 Patient is seen and evaluated this morning currently requiring more oxygen and has continued cough and chest pain that radiates to her back. 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 Patient will be given a dose of IV Lasix and monitored closely. She continues to be on 5 L of oxygen and is receiving Remdesivir. Infectious disease is following and will consult pulmonary. Cardiology also consulted as patient has been in and out of A. fib with RVR and was started on metoprolol. Patient was also noted to have a low- grade fever today. Patient's overall appearance is ill-appearing. Patient denies history of aneurysm. 10/04/2020 Patient is seen in follow-up this morning appears slightly improved from yesterday. Pulmonary was consulted and now following along with infectious disease and cardiology. Patient continues to be in atrial fibrillation and was initiated on metoprolol by cardiology and is being started on anticoagulant Eliquis. Patient is currently maintained on 4 L of oxygen via nasal cannula and denies any worsening shortness of breath. Patient states she has a continued cough and was having some back discomfort although has improved from yesterday. Patient was started on 20 mg IV Lasix twice daily and will continue at this time. Patient was also on IV fluids which were discontinued. Patient is tolerating diet and drinking with no reports of nausea or vomiting noted. BNP was done yesterday showing 5330. Sodium today is 134 with a potassium of 3.7 and current creatinine is 0.9. CBC within normal limits. Patient is afebrile. 10/05/2020 Patient is seen in follow-up and is lethargic and weak today and is currently maintained on 4 L of oxygen. Patient is also continued on IV Lasix twice daily and will continue. Will repeat a.m. chest x-ray and continue to wean FiO2 as tolerated. Patient recently completed Remdesivir is maintained on Eliquis for anticoagulation along with vitamin and zinc supplements and will continue. Multiple medical consultations following including infectious disease, pulmonary, and cardiology. Labs today within normal limits. Patient also continues to be dyspneic with minimal exertion. 10/06/2020 Patient remains on 4 L of oxygen appears to be doing well but will may require subacute rehabilitation, discussed and updated her yesterday was hoping that patient can come home soon. Patient also feels little bit weak 10/07/2020 Patient underwent respiratory distress went into atrial fibrillation appears to be bit volume depleted clinically with mildly worsening serum creatinine of 1.1 her baseline should be around 0.2, and with acute exacerbation of discontinued at this time patient is also on some narcotics including morphine which will be discontinued. Patient is presently on 15 L of oxygen, does have some rhonchi and crackles on exam patient was given 2.5 mg of IV metoprolol when she went into A. fib and when her heart rate was high testing that she was hypoxic. Heart rate came down to now 110s patient is on 25 twice a day of metoprolol which will be changed to 50 twice a day we will give her 25 mg of metoprolol additionally. Patient was only on the phone liters of oxygen yesterday her overall prognosis although his poor. Review of systems: Constitutional: reports fatigue, and fever, or chills Cardiovascular: Reports chest pain or palpitations Respiratory: Reports shortness of breath and cough although feels has slightly i mproved GI: No reports of nausea, vomiting, or diarrhea : No reports of dysuria or retention Neurovascular: No reports of weakness or numbness All medications have been reviewed Objective - Vital Signs Vital signs: Vital Signs Temp 99.3 F 10/07/20 02:00 Pulse 101 H 10/07/20 11:55 Resp 30 H 10/07/20 07:35 BP 130/72 10/07/20 11:55 Pulse Ox 90 L 10/07/20 07:35 Intake & Output 10/06/20 10/07/20 10/07/20 18:59 06:59 18:59 Intake Total 180 Balance 180 Intake: Oral 180 Other: Voiding Method Toilet # Voids 1 3 # Bowel Movements 0 - Exam GENERAL: The patient is alert and oriented x3, mild respiratory distress HEENT: Pupils are round and equally reacting to light. EOMI. No scleral icterus. No pallor. Throat exam- she has dentures, swelling improved CARDIOVASCULAR: S1 and S2 present. Cardiac irregularly irregular rhythm PULMONARY: Bilateral breath sounds diminished with some scattered rhonchi and possible bibasilar crackles. ABDOMEN: Abdomen is soft. Nontender. Nondistended. Normal bowel sounds. MUSCULOSKELETAL: No joint swelling or deformity. EXTREMITIES: No cyanosis, clubbing, or pedal edema. NEUROLOGICAL: Gross neurological examination did not reveal any focal deficits. SKIN: No rashes. - Labs CBC & Chem 7: 10/06/20 06:09 10/07/20 08:26 Labs: Abnormal Lab Results - Last 24 Hours (Table) 04/03/21 04/04/21 Range/Units 06:09 08:26 Sodium 134 L (137-145) mmol/L Chloride 93 L (98-107) mmol/L Carbon Dioxide 31 H (22-30) mmol/L BUN 24 H (7-17) mg/dL Creatinine 1.17 H (0.52-1.04) mg/dL Glucose 107 H (74-99) mg/dL Magnesium 1.5 L (1.6-2.3) mg/dL Lactate Dehydrogenase 1283 H (313-618) U/L C-Reactive Protein 70.6 H (<10.0) mg/L Procalcitonin 0.16 H (0.02-0.09) ng/mL Microbiology - Last 24 Hours (Table) 10/03/20 09:15 Blood Culture - Preliminary Blood No Growth after 96 hours Assessment and Plan Plan: COVID-19 pneumonia: Patient is on Decadron, Remdesivir, Covid vitamins. Patient went into acute hypoxic respiratory failure again and is requiring 15 L of oxygen. Atrial fibrillation with rapid ventricular rate: Patient metoprolol dose will be increased, cardiology was consulted. Patient is on Eliquis which will be continued Acute obstructive Laryngitis with tracheitis Leukopenia with lymphopenia Hyponatremia- resolved, hypovolemic hyponatremia improved Transaminitis - improved Right breast cancer Lymphoma on immunotherapy Hyperlipidemia Hypertension GERD Thyroid disorder Former smoker Patient's overall prognosis is extremely poor considering her lymphoma age who with 19, atrial fibrillation
--- NOTE | 2020-10-07 12:48 | P.EN ---
A- team: Indication: A. fib with RVR Background: Arrived to room to find patient being helped up to light back. Patient appears to be in A. fib with RVR heart rates of 150-160. Blood pressure stable at 124/86. She has not yet received her morning dose of metoprolol. She has been hospitalized with Covid since 09/28. She is currently a full code. She has a known history of A. fib. Patient seen and examined at bedside. Patient complains of abdominal pain which has been there for several days. She is also feeling very tired, short of gertrudis th, and lightheaded. Vital signs reviewed General: Ill-appearing, moderate distress, moaning appears at stated age Derm: warm, dry Head: atraumatic, normocephalic, symmetric Eyes: EOMI, no lid lag, anicteric sclera Mouth: no lip lesion, mucus membranes moist Cardiovascular: S1-S2 irregular and tachycardic, no murmur, positive posterior tibial pulse bilateral, Lungs: Coarse breath sounds bilateral, 2 word conversational dyspnea no accessory muscle use Abdominal: soft, nontender to palpation, no guarding, no appreciable organomegaly Ext: no gross muscle atrophy, no edema, no contractures Neuro: CN II-XI grossly intact, no focal neuro deficits Psych: Alert, oriented, appropriate affect Assessment/Plan: Atrial fibrillation with rapid ventricular response, known history of A. fib-patient lost 90 and a new and had to be obtained. She was given metoprolol 2.5 mg IV push 1. She was given her dose of oral metoprolol early. Patient's heart rate decreased to 110 to 115. Her blood pressure was then 140/84. She was feeling better, short of breath. Moaning aborted. Stat chest x-ray, basic metabolic profile, CBC, and magnesium ordered. Will keep her on 6N with close monitor. Hypomagnesemia- replace COVID, [facility]- on treatment Notified: Dr. Bui will consult cardiology A Total of 32 minutes of critical care time was spent on the complex care of this patient.
[2020-10-07] MEDS: MULTIVITAMINS, THERA 1 EACH TAB PO SCH (13:11)
[2020-10-07] MEDS: ASCORBIC ACID 500 MG TAB PO SCH (13:11)
[2020-10-07] MEDS: CYANOCOBALAMIN 500 MCG TAB PO SCH (13:11)
[2020-10-07] MEDS: SENNOSIDES 8.6 MG TAB PO SCH ×2 (13:11→20:09)
[2020-10-07] MEDS: ZINC SULFATE 220 MG CAP PO SCH (13:11)
[2020-10-07] MEDS: CHOLECALCIFEROL 25 MCG (1000 IU) TABLET PO SCH (13:11)
--- NOTE | 2020-10-07 13:23 | P.PN ---
Subjective Progress Note Date: 10/07/20 Principal diagnosis: Shortness of breath, cough. This is an 85-year-old female patient with a history of atrial fibrillation, COPD, lymphoma on active chemotherapy, hypothyroidism, hearing disorder, hyperlipidemia, right breast cancer, melanoma former smoker. She had presented to the emergency room back on 09/28/2020. We're consulted today for a chest x- ray showing possible pleural effusion. Computed tomography scan of the chest revealed bilateral patchy pneumonia with pleural effusions and basilar infiltrate and atelectasis. She is seen today on the regular medical floor. Currently sitting up in a chair at the bedside. Maintaining O2 saturation low 90s on 4 L/m per nasal cannula. She's afebrile. Sputum culture pending. Blood culture reveals no growth to date. White count 4.1. Hemoglobin 14.7. Sodium 134. Creatinine 0.90. Troponin is negative x 2. ProBNP 5330. She is initiated on Lasix 20 mg IV every 12 hours. Anticoagulated with Eliquis. Remains on vitamin supplements, dexamethasone. He has been initiated on Remdesivir. This is day number #4. The patient is seen today 10/05/2020 in follow-up on the regular medical floor. She is awake and alert in no acute distress. Still feeling quite weak and fatigued. Short of breath with exertion. She completed Remdesivir today. She remains on 4 L high flow nasal cannula to maintain O2 saturations in the 90s. Sputum culture revealed no growth. Blood cultures revealed no growth. White count 4.8. Hemoglobin 13.4. Sodium 134. Potassium 4.0. Creatinine 0.9. Remains on Decadron, Eliquis, vitamin supplements. Continued on IV diuretics. Progress note dated 10/06/2020. 5-year-old female, with a history of multiple medical problems including acute hypoxemic respiratory failure secondary to COVID 19 pneumonia, diastolic CHF, paroxysmal atrial fibrillation, hypertension, hyperlipidemia, lymphoma, hypothyroidism, hyperlipidemia, deafness, hypothyroidism, breast cancer, melanoma, and bowel resection. The patient states that she is feeling a bit better. She looks quite weak. She's on 4 L nasal cannula. Her saturations are reasonable. She's getting saline at 20 mL an hour. She apparently did have a significant coughing spell last night. Overall though, she does feel improved. She did complete REM. White count 7.02, hemoglobin 13.9, hematocrit 41.1, platelet count 206,000. D-dimer 0.27. I could not view the chest x-ray today, but the report mentions upper lung zone opacities which are unchanged compared to an x-ray done on October 04. Progress note dated 10/07/2020. 85-year-old female, with multiple medical problems including acute hypoxemic respiratory failure secondary to COVID 19 pneumonia, diastolic CHF, paroxysmal atrial fibrillation, hypertension, hyperlipidemia, lymphoma, hypothyroidism, hyperlipidemia, deafness, hypothyroidism, breast cancer, melanoma, and bowel resection. Currently, the patient is on a nonrebreather mask, and 15 L high flow nasal O2. She's receiving saline at 75 mL an hour. Her saturations are 98%. She does not appear to be in any respiratory distress or difficulty. There is no conversational dyspnea or use of accessory muscles. Labs today include a sodium 134, potassium 4.2, chloride 93, CO2 31, anion gap 10, BUN 24, and creatinine 1.17. LDH is 1283. The C-reactive protein is 71. Pro- calcitonin level from yesterday was 0.16. Chest x-ray show some mild worsening of her bilateral patchy infiltrates. Objective - Vital Signs Vital signs: Vital Signs Temp 99.3 F 10/07/20 02:00 Pulse 101 H 10/07/20 11:55 Resp 30 H 10/07/20 07:35 BP 130/72 10/07/20 11:55 Pulse Ox 90 L 10/07/20 07:35 Intake & Output 10/06/20 10/07/20 10/07/20 18:59 06:59 18:59 Intake Total 180 Balance 180 Intake: Oral 180 Other: Voiding Method Toilet # Voids 1 3 # Bowel Movements 0 - Exam No acute distress, oriented 3. Frail appearing. Currently on 15 L nasal cannula, and nonrebreather mask. HEENT examination is grossly unremarkable. Mucous membranes are moist. No oral lesions. Neck supple. Full range of motion. No adenopathy thyromegaly or neck vein distention. Cardiovascular examination reveals an irregular rhythm and rate. S1-S2 normal. No S3 or S4. No discernible murmur noted. Heart sounds distant, heart rate 101 bpm. Lungs reveal diffuse bilateral crackles and rhonchi. No wheezes. Breath sounds equal but diminished throughout. Saturations are 91%. Abdomen soft bowel sounds are heard. No masses or tenderness. Extremities are intact. No cyanosis clubbing or edema. Skin is without rash or lesion. Neurologic examination is brief but nonfocal. - Labs CBC & Chem 7: 10/06/20 06:09 10/07/20 08:26 Labs: Abnormal Lab Results - Last 24 Hours (Table) 10/06/20 10/07/20 Range/Units 06:09 08:26 Sodium 134 L (137-145) mmol/L Chloride 93 L (98-107) mmol/L Carbon Dioxide 31 H (22-30) mmol/L BUN 24 H (7-17) mg/dL Creatinine 1.17 H (0.52-1.04) mg/dL Glucose 107 H (74-99) mg/dL Magnesium 1.5 L (1.6-2.3) mg/dL Lactate Dehydrogenase 1283 H (313-618) U/L C-Reactive Protein 70.6 H (<10.0) mg/L Procalcitonin 0.16 H (0.02-0.09) ng/mL Microbiology - Last 24 Hours (Table) 10/03/20 09:15 Blood Culture - Preliminary Blood No Growth after 96 hours Assessment and Plan Assessment: Acute hypoxemic respiratory failure, secondary to COVID 19 pneumonia, and complicated by acute exacerbation of diastolic congestive heart failure. Paroxysmal atrial fibrillation. Benign essential hypertension. Hyperlipidemia. History of lymphoma. Hypothyroidism. Hyperlipidemia. Deafness. Hypothyroidism. History of breast cancer. History of melanoma. History of bowel resection. General medical debility. Plan: Plan dated 10/06/2020. The patient's oxygen has been titrated down, to accept saturations of 90% or greater. The patient has completed her REM. She continues on Decadron, vitamin C, vitamin D3, and zinc. She is ready anticoagulated with a factor X a inhibitor. No plans for thoracentesis at this time. Continue IV diuretics. We will continue to follow. Prognosis is guarded. The patient appears to be very frail, but she does feel a bit better. Plan dated 10/07/2020. The patient's oxygen requirements have gone up in the last 24 hours. The patient might be a candidate for TOCI, but unfortunately, the pharmacy does not have any. The patient be watched very closely. Additional recommendations and suggestions are forthcoming. CODE STATUS should be addressed by the primary service. The patient may ultimately end up in the intensive care unit. We may need to make a decision about intubation and mechanical ventilation if her condition continues to worsen. We will continue to follow the patient very closely. Prognosis is very guarded. The patient is very frail appearing. Time with Patient: Less than 30
[2020-10-07] MEDS: MAGNESIUM SULFATE-D5W PMX 1 GM in DEXTROSE/WATER 1 100ML.BAG IVPB SCH ×3 (14:27→18:01)
[2020-10-07] MEDS: ACETAMINOPHEN TAB 500 MG TAB PO PRN (16:57)
[2020-10-07] MEDS: METOPROLOL TARTRATE 50 MG TAB PO SCH (20:09)
--- NOTE | 2020-10-07 21:04 | PN ---
PROGRESS NOTE DATE OF SERVICE: 10/07/2020 REASON FOR FOLLOWUP: COVID-19 pneumonia. INTERVAL HISTORY: Patient is currently afebrile. The patient is feeling slightly better. He has been complaining of pain to the left lower ribcage area. Patient denies having any cough or sputum production. No abdominal pain. No diarrhea. PHYSICAL EXAMINATION: Blood pressure 101/62 with a pulse of 101, temperature 98. She is 92% on 6 L nasal cannula. General description is a middle-aged female up in the chair in no distress. Respiratory system: Unlabored breathing, decreased breath sounds in the base. No wheeze. Heart S1, S2. Regular rate and rhythm. Abdomen soft, no tenderness. LABS: The LDH has gone up to 1283, procalcitonin 0.16. DIAGNOSTIC IMPRESSION AND PLAN: Patient with COVID-19 infection. Patient has completed her Remdesivir therapy. Patient no evidence of mild worsening of her symptoms. Possible left lower versus Covid infection or review of the inflammatory markers, she is to continue with dexamethasone, Eliquis and zinc and monitor clinical course closely. Continue supportive care. MMODL / IJN: [id number] /
[2020-10-07] MEDS: TEMAZEPAM 15 MG CAP PO PRN (23:48)
[2020-10-08] MEDS: LEVOTHYROXINE 100 MCG TAB PO SCH (05:57)
[2020-10-08] MEDS: DEXAMETHASONE SOD PHOSPHATE 10 MG/ML 1 ML VIAL IV SCH (07:29)
[2020-10-08] MEDS: APIXABAN 2.5 MG TABLET PO SCH ×2 (07:29→20:39)
[2020-10-08] MEDS: MULTIVITAMINS, THERA 1 EACH TAB PO SCH (07:29)
[2020-10-08] MEDS: ASCORBIC ACID 500 MG TAB PO SCH (07:29)
[2020-10-08] MEDS: SENNOSIDES 8.6 MG TAB PO SCH ×2 (07:29→20:33)
[2020-10-08] MEDS: CYANOCOBALAMIN 500 MCG TAB PO SCH (07:30)
[2020-10-08] MEDS: CHOLECALCIFEROL 25 MCG (1000 IU) TABLET PO SCH (07:30)
[2020-10-08] MEDS: ZINC SULFATE 220 MG CAP PO SCH (07:31)
[2020-10-08] MEDS: METOPROLOL TARTRATE 50 MG TAB PO SCH ×2 (07:34→20:39)
[2020-10-08 12:34] LABS: African American GFR (CKD) 50 (>60 ml/min/1.73 sqM); Anion Gap 10 mmol/L; Blood Urea Nitrogen 32 mg/dL (7-17); Calcium 8.3 mg/dL (8.4-10.2); Carbon Dioxide 25 mmol/L (22-30); Chloride 94 mmol/L (98-107); Glucose 122 mg/dL (74-99); Non-African American GFR(CKD) 44 (>60 ml/min/1.73 sqM); Potassium 3.8 mmol/L (3.5-5.1); Sodium 129 mmol/L (137-145)
--- NOTE | 2020-10-08 12:45 | P.PN ---
Subjective Progress Note Date: 10/08/20 HISTORY OF PRESENT ILLNESS: This is a pleasant 85-year-old female past medical history significant for GERD, hypertension, hyperlipidemia, lymphoma receiving immunotherapy. She used to follow in the office with Dr. Casarez, last seen in 2018. She does not follow with a mri tech at this time. We have been asked to see in consultation for new onset atrial fibrillation. It is in the patient's history that she has had atrial fibrillation, however, patient is not on anticoagulation and office notes do not mention any episodes of atrial fibrillation. Patient presents to the [facility] with complaints of sore throat, felt her throat was closing off, lethargy, myalgias. Patient was recently diagnosis covid-19 infection 3 days ago and she states that her granddaughter was tested positive for covid-19. In the ER, CT of the soft tissue neck showing airway narrowing at the level of the vocal cords measuring up to 3.7 mm in the left apical lung mass. On 09/30, patient was found to be sinus bradycardia, HR 30s during her sleep. Per Nursing she has been getting bradycardic with Remdesivir medication. Laboratory data reviewed, sodium 1:30, potassium 4.0, creatinine 0.85, magnesium 2.1, elevated liver enzymes AST 94, PLT 171 , D-dimer 0.28 Vital signs blood pressure 118/82, heart rate 70s-120. Patient does not currently take any cardiac medications she is not on an anticoagulation DIAGNOSTICS Echocardiogram 02/2020 revealed left ventricular systolic function with an EF between 55-60%, mild aortic valve sclerosis, moderate AR, moderate MR, mild mitral stenosis, moderate TR, borderline pulmonary hypertension. Telemetry tracings indicate 10/02 around 1020am episode of atrial fibrillation RVR 170s. 10/03 another episode of atrial fibrillation with HR 160s. Patient also converts back at times to sinus tachycardia Chest xray Consistent with pneumonia On 10/04/20: Overnight A-Team called due to increased HR in the 160s, Patient noted to be in atrial fibrillation. Patient given one time dose of Lopressor 12.5mg PO. Troponin negative x 2, TSH 1.9, BNP 5330. Spoke with patient's and he states she has been told she has had atrial fibrillation before, but that it was controlled and "not critical where she had to do anything about". He doesn't recall her being on an anticoagulation or metoprolol. He does endorse some worries about a blood thinner due to his being very weak. 10/05/20: Patient's telemetry reviewed Patient continues to be in and out of atrial fibrillation. No episodes of tachycardia or Afib with RVR overnight. HR 90s-100s this morning. BP 122/75 afebrile, continues to require oxygen, currently on 4L nasal cannula. Laboratory data reviewed, WBC 4.8, hemoglobin 15.4, platelets 180, sodium 134, potassium 4.0, serum creatinine 0.9, magnesium 1.7, AST 52, ALT 12. Patient is currently maintained on metoprolol titrate 0.5 mg 3 times a day, Eliquis 2.5 mg twice a day 10/07/2020 Cardiology was reconsulted yesterday secondary to A. fib with RVR. A team was called yesterday secondary to patient being in A. fib with RVR with heart rate in the 150s. Patient had not received her morning metoprolol at that time. Patient was given a dose of metoprolol IV push and also given a dose of oral metoprolol. Patient was in atrial fibrillation this morning. However she has since converted to sinus mechanism with a heart rate in the 70s. She remains in Eliquis for anticoagulation. Blood pressure 126/78. She is on 6 L nasal cannula with oxygen saturations greater than 92%. Temperature this morning 99.6. PHYSICAL EXAM: Thorough physical exam not completed secondary to limited evaluation/examination due to Covid19 ASSESSMENT: Covid 19 New-onset paroxysmal atrial fibrillation with RVR, currently maintaining sinus mechanism Hypertension Hyperlipidemia PLAN: Continue telemetry monitoring Continue Eliquis Continue current dose of metoprolol Further recommendations pending patient's course Nurse practitioner note has been reviewed by physician. Signing provider agrees with the documented findings, assessment, and plan of care. Objective - Vital Signs Vital signs: Vital Signs Temp 99.6 F 10/08/20 08:00 Pulse 108 H 10/08/20 08:00 Resp 20 10/08/20 08:00 BP 126/78 10/08/20 08:00 Pulse Ox 92 L 10/08/20 08:00 Intake & Output 10/07/20 10/08/20 10/08/20 18:59 06:59 18:59 Other: Voiding Method Toilet # Voids 1 1 # Bowel Movements 0 - Labs CBC & Chem 7: 10/06/20 06:09 10/07/20 08:26 Labs: Microbiology - Last 24 Hours (Table) 10/03/20 09:15 Blood Culture - Preliminary Blood No Growth after 120 hours
--- NOTE | 2020-10-08 13:26 | P.PN ---
Subjective Progress Note Date: 10/08/20 Principal diagnosis: Acute hypoxic respiratory failure secondary to acute covid 19 pneumonia and acute diastolic congestive heart failure This is an 85-year-old female patient with a history of atrial fibrillation, COPD, lymphoma on active chemotherapy, hypothyroidism, hearing disorder, hyperlipidemia, right breast cancer, melanoma former smoker. She had presented to the emergency room back on 09/28/2020. We're consulted today for a chest x- ray showing possible pleural effusion. Computed tomography scan of the chest revealed bilateral patchy pneumonia with pleural effusions and basilar infiltrate and atelectasis. She is seen today on the regular medical floor. Currently sitting up in a chair at the bedside. Maintaining O2 saturation low 90s on 4 L/m per nasal cannula. She's afebrile. Sputum culture pending. Blood culture reveals no growth to date. White count 4.1. Hemoglobin 14.7. Sodium 134. Creatinine 0.90. Troponin is negative x 2. ProBNP 5330. She is initiated on Lasix 20 mg IV every 12 hours. Anticoagulated with Eliquis. Remains on vitamin supplements, dexamethasone. He has been initiated on Remdesivir. This is day number #4. The patient is seen today 10/05/2020 in follow-up on the regular medical floor. She is awake and alert in no acute distress. Still feeling quite weak and fatigued. Short of breath with exertion. She completed Remdesivir today. She remains on 4 L high flow nasal cannula to maintain O2 saturations in the 90s. Sputum culture revealed no growth. Blood cultures revealed no growth. White count 4.8. Hemoglobin 13.4. Sodium 134. Potassium 4.0. Creatinine 0.9. Remains on Decadron, Eliquis, vitamin supplements. Continued on IV diuretics. Progress note dated 10/06/2020. 5-year-old female, with a history of multiple medical problems including acute hypoxemic respiratory failure secondary to COVID 19 pneumonia, diastolic CHF, paroxysmal atrial fibrillation, hypertension, hyperlipidemia, lymphoma, hypothyroidism, hyperlipidemia, deafness, hypothyroidism, breast cancer, melanoma, and bowel resection. The patient states that she is feeling a bit better. She looks quite weak. She's on 4 L nasal cannula. Her saturations are reasonable. She's getting saline at 20 mL an hour. She apparently did have a significant coughing spell last night. Overall though, she does feel improved. She did complete REM. White count 7.02, hemoglobin 13.9, hematocrit 41.1, platelet count 206,000. D-dimer 0.27. I could not view the chest x-ray today, but the report mentions upper lung zone opacities which are unchanged compared to an x-ray done on October 04. Progress note dated 10/07/2020. 85-year-old female, with multiple medical problems including acute hypoxemic respiratory failure secondary to COVID 19 pneumonia, diastolic CHF, paroxysmal atrial fibrillation, hypertension, hyperlipidemia, lymphoma, hypothyroidism, hyperlipidemia, deafness, hypothyroidism, breast cancer, melanoma, and bowel r esection. Currently, the patient is on a nonrebreather mask, and 15 L high flow nasal O2. She's receiving saline at 75 mL an hour. Her saturations are 98%. She does not appear to be in any respiratory distress or difficulty. There is no conversational dyspnea or use of accessory muscles. Labs today include a sodium 134, potassium 4.2, chloride 93, CO2 31, anion gap 10, BUN 24, and creatinine 1.17. LDH is 1283. The C-reactive protein is 71. Pro-calcitonin level from yesterday was 0.16. Chest x-ray show some mild worsening of her bilateral patchy infiltrates. Patient was reevaluated today on 10/08/2020, patient continues to do poorly, she has no symptoms of diarrhea mostly. Continues to have shortness of breath with any activity. She is on 6 L nasal cannula and her O2 saturation is 92%. LDH is 1283 CRP is 70. Pro-calcitonin was 0.16. Chest x-ray yesterday 10/07/2020 showed slight worsening of her bilateral airspace opacities. Her sodium is trending down and is 129 today. Patient was on diuretics. And she is also having intermittent diarrhea. Patient did receive REM, she is on dexamethasone, and she received Gammagard. Given by oncology. Objective - Vital Signs Vital signs: Vital Signs Temp 99.6 F 10/08/20 08:00 Pulse 108 H 10/08/20 08:00 Resp 20 10/08/20 08:00 BP 126/78 10/08/20 08:00 Pulse Ox 92 L 10/08/20 08:00 Intake & Output 10/07/20 10/08/20 10/08/20 18:59 06:59 18:59 Other: Voiding Method Toilet # Voids 1 1 # Bowel Movements 0 - Exam ENERAL EXAM: Alert, frail, 85-year-old female patient, on 6 L nasal cannula. HEAD: Normocephalic. EENT: PERRLA, EOMI, nonicteric, dry mucous membranes. LUNGS: Equal air entry with with crackles in the bilateral bases. CVS: S1 and S2 normal with no audible murmur, irregular rhythm. ABDOMEN: No hepatosplenomegaly, normal bowel sounds, no guarding or rigidity. SPINE: No scoliosis or deformity SKIN: No rashes CENTRAL NERVOUS SYSTEM: No focal deficits, tone is normal in all 4 extremities. EXTREMITIES: There is no peripheral edema. No clubbing, no cyanosis. Periph eral pulses are intact. - Labs CBC & Chem 7: 10/06/20 06:09 10/08/20 11:56 Labs: Abnormal Lab Results - Last 24 Hours (Table) 10/08/20 Range/Units 11:56 Sodium 129 L (137-145) mmol/L Chloride 94 L (98-107) mmol/L BUN 32 H (7-17) mg/dL Creatinine 1.15 H (0.52-1.04) mg/dL Glucose 122 H (74-99) mg/dL Calcium 8.3 L (8.4-10.2) mg/dL Microbiology - Last 24 Hours (Table) 10/03/20 09:15 Blood Culture - Preliminary Blood No Growth after 120 hours Assessment and Plan Assessment: Impression: Acute hypoxic respiratory failure secondary to cope with 19 pneumonia and acute diastolic congestive heart failure History of lymphoma, on chemotherapy. Paroxysmal atrial fibrillation. Hypothyroidism. Benign essential hypertension. Previous bowel resection. History of melanoma Recommendation: Titrate oxygen and maintaining O2 saturation of 90%. Continue the Covid 19 cocktails. Including Decadron and anticoagulation therapy. And vitamins. Patient finished REM treatment. Considering the patient is having diarrhea, we will avoid diuretics for today. Continue to monitor electrolytes. Continue anticoagulation therapy. Patient is on eliquis We'll continue to follow, prognosis is definitely guarded. Time with Patient: Less than 30
[2020-10-08] MEDS ORDERED: LOPERAMIDE 2 MG CAP PO PRN (16:55)
--- NOTE | 2020-10-08 17:02 | P.PN ---
Subjective Progress Note Date: 10/08/20 COVID Pneumonia Ms. Dudley is a 85-year-old female with a past medical history of atrial fibrillation, GERD, hypertension, hyperlipidemia, osteoarthritis, thyroid disorder, and breast cancer, melanoma of the face, osteoporosis, lymphoma receiving immunotherapy coming to the hospital stating that she has a sore throat and feels like that it is closing off on her. Patient states that she was diagnosed with Covid infection 3 to 4 days back, she states that her granddaughter was tested positive for Covid and she probably got it from her. She has also been feeling lethargic with myalgias. She denies having any fevers or chills. Her main complaint is that she feels that her throat is closing off and it has been difficult for her to breathe or swallow. Patient denies having any abdominal pain nausea vomiting or diarrhea. No dysuria or hematuria. In the ER patient had soft tissue neck CT showing airway narrowing at the level of vocal cords measuring up to 3.7 mm and the left apical lung mass. Patient was given a dose of Solu-Medrol and is admitted for further management. Patient's vitals at the time of admission temperature of 99.1, heart rate 63, rest rate 22 saturating at 95% on room air. On reviewing her labs white count of 2.2, hemoglobin 15.4, platelets 145. Sodium 130, potassium 4.4, chloride 102, bicarb 19. BUN is 10 and creatinine 0.95. CRP of 14.2. On 09/29/2020-patient was seen and examined at the bedside. She states that her throat tightness feels much better compared to yesterday. As per discussion with nursing staff, patient had difficulty swallowing her pills this morning. She crushed it in applesauce and give it to the patient. Patient states that difficulty in breathing is better. No chest pain or palpitations. No abdominal pain nausea vomiting or diarrhea. No dysuria or hematuria. On reviewing her vitals T-max of 98.6, heart rate 60s to 70s, respiratory 20, blood pressure 129/70 saturating at 94% on 2 L of oxygen. On reviewing the labs from this morning white count of 2, hemoglobin 14.5, platelets 116. Sodium 133, potassium 5.1, chloride 106, bicarb 21, BUN 14, creatinine 0.92. AST 314, ALT 284. CRP 27. On 09/30/2020 - patient was seen and examined at bedside. On reviewing the overnight telemetry, patient was found to have bradycardia heart rate as low as 30 in sinus rhythm, and this happened during her sleep. Patient denies having any chest pain or palpitations. She has mild difficulty in breathing along with mild dry cough. No abdominal pain nausea vomiting or diarrhea. No dysuria or hematuria. On reviewing her vitals T-max of 98.9, heart rate 30s to 50s, respiratory rate 18, blood pressure 1 32 x 68, saturating at 94% on room air. On reviewing her labs- white count of 1.97, hemoglobin 12.4, platelets 105. Sodium 139, potassium 4.3, chloride 108, bicarbonate 25, BUN 15, creatinine 0.9. AST 101, ALT 194, LDH 208, CRP 0.9. 10/01/2020 Patient is seen and evaluated in follow-up currently sitting up in the chair status post is working with physical therapy. Patient will require a walker for gait dysfunction. Patient is currently maintained on 2 L of oxygen via nasal cannula at 96% oxygenation. Patient states she has had oxygen at home in the past although returned it as it was not needed. Patient may need home oxygen was stabilized and discharged. Patient is being followed by infectious disease and currently maintained on Remdesivir along with dexamethasone, Lovenox, vitamin C and zinc supplements and will continue at this time. Patient was seen and evaluated by ENT Dr. Diaz she had some increase swelling and edema noted in her airway passage although has improved she states significantly with steroids. Patient continues to have some tenderness of the oral pharynx although states is tolerating diet with no difficulties in swallowing. Inflammatory markers trending down and liver functions trending down as well. 10/03/2019 Patient remains on 2 L of oxygen feeling bit better. We will continue to wean off oxygen possibility of discharge in a day or 2 10/03/2020 Patient is seen and evaluated this morning currently requiring more oxygen and has continued cough and chest pain that radiates to her back. 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 Patient will be given a dose of IV Lasix and monitored closely. She continues to be on 5 L of oxygen and is receiv ing Remdesivir. Infectious disease is following and will consult pulmonary. Cardiology also consulted as patient has been in and out of A. fib with RVR and was started on metoprolol. Patient was also noted to have a low-grade fever today. Patient's overall appearance is ill-appearing. Patient denies history of aneurysm. 10/04/2020 Patient is seen in follow-up this morning appears slightly improved from yesterday. Pulmonary was consulted and now following along with infectious disease and cardiology. Patient continues to be in atrial fibrillation and was initiated on metoprolol by cardiology and is being started on anticoagulant Eliquis. Patient is currently maintained on 4 L of oxygen via nasal cannula and denies any worsening shortness of breath. Patient states she has a continued cough and was having some back discomfort although has improved from yesterday. Patient was started on 20 mg IV Lasix twice daily and will continue at this time. Patient was also on IV fluids which were discontinued. Patient is tolerating diet and drinking with no reports of nausea or vomiting noted. BNP was done yesterday showing 5330. Sodium today is 134 with a potassium of 3.7 and current creatinine is 0.9. CBC within normal limits. Patient is afebrile. 10/05/2020 Patient is seen in follow-up and is lethargic and weak today and is currently maintained on 4 L of oxygen. Patient is also continued on IV Lasix twice daily and will continue. Will repeat a.m. chest x-ray and continue to wean FiO2 as tolerated. Patient recently completed Remdesivir is maintained on Eliquis for anticoagulation along with vitamin and zinc supplements and will continue. Multiple medical consultations following including infectious disease, pulmonary, and cardiology. Labs today within normal limits. Patient also continues to be dyspneic with minimal exertion. 10/06/2020 Patient remains on 4 L of oxygen appears to be doing well but will may require subacute rehabilitation, discussed and updated her yesterday was hoping that patient can come home soon. Patient also feels little bit weak 10/07/2020 Patient underwent respiratory distress went into atrial fibrillation appears to be bit volume depleted clinically with mildly worsening serum creatinine of 1.1 her baseline should be around 0.2, and with acute exacerbation of discontinued at this time patient is also on some narcotics including morphine which will be discontinued. Patient is presently on 15 L of oxygen, does have some rhonchi and crackles on exam patient was given 2.5 mg of IV metoprolol when she went into A. fib and when her heart rate was high testing that she was hypoxic. Heart rate came down to now 110s patient is on 25 twice a day of metoprolol which will be changed to 50 twice a day we will give her 25 mg of metoprolol additionally. Patient was only on the phone liters of oxygen yesterday her overall prognosis although his poor. 10/08/2020 Patient is seen and evaluated this morning and follow-up and has had multiple episodes of diarrhea and loose stools and was tested for C. diff which was negative. Patient will be started on Imodium as needed. Patient continues to have shortness of breath and has been in and out of A. fib with RVR and per nursing staff currently converted into normal sinus. Patient is being followed by cardiology. She continues to be extremely short of breath and dyspneic with minimal exertion and currently maintained on nasal cannula 6 L with 89% oxygen saturation. Sodium was found to be at 129 today with a potassium of 3.8 and current creatinine slightly improved at 1.15. Lasix has been discontinued. Will repeat a.m. labs and continue to monitor closely. Review of systems: Constitutional: reports fatigue, and fever, or chills Cardiovascular: Reports chest pain or palpitations Respiratory: Reports shortness of breath and cough although feels has slightly improved GI: No reports of nausea, vomiting, reported multiple episodes of diarrhea and loose stool : No reports of dysuria or retention Neurovascular: reports continued weakness All medications have been reviewed Objective - Vital Signs Vital signs: Vital Signs Temp 99.6 F 10/08/20 08:00 Pulse 103 H 10/08/20 08:00 Resp 18 10/08/20 08:00 BP 126/78 10/08/20 08:00 Pulse Ox 92 L 10/08/20 08:00 Intake & Output 10/07/20 10/08/20 10/08/20 18:59 06:59 18:59 Other: Voiding Method Toilet # Voids 1 1 # Bowel Movements 0 - Exam GENERAL: The patient is alert and oriented x3, appears ill-appearing and weak and lethargic, currently on 6 L via nasal cannula HEENT: Pupils are round and equally reacting to light. EOMI. No scleral icterus. No pallor. Throat exam- she has dentures, swelling improved CARDIOVASCULAR: S1 and S2 present. Bradycardia PULMONARY: Bilateral breath sounds diminished with some scattered rhonchi noted. ABDOMEN: Abdomen is soft. Nontender. Nondistended. Normal bowel sounds. MUSCULOSKELETAL: No joint swelling or deformity. EXTREMITIES: No cyanosis, clubbing, or pedal edema. NEUROLOGICAL: Gross neurological examination did not reveal any focal deficits. Diffusely weak SKIN: No rashes. - Labs CBC & Chem 7: 10/06/20 06:09 10/08/20 11:56 Labs: Abnormal Lab Results - Last 24 Hours (Table) 10/07/20 Range/Units 08:26 Sodium 134 L (137-145) mmol/L Chloride 93 L (98-107) mmol/L Carbon Dioxide 31 H (22-30) mmol/L BUN 24 H (7-17) mg/dL Creatinine 1.17 H (0.52-1.04) mg/dL Glucose 107 H (74-99) mg/dL Magnesium 1.5 L (1.6-2.3) mg/dL Lactate Dehydrogenase 1283 H (313-618) U/L C-Reactive Protein 70.6 H (<10.0) mg/L Microbiology - Last 24 Hours (Table) 10/03/20 09:15 Blood Culture - Preliminary Blood No Growth after 96 hours Assessment and Plan Assessment: COVID-19 pneumonia, a she is maintained on Decadron received her last dose of remdesivir today, vitamin and zinc supplements along with Eliquis, currently 6 L of oxygen Atrial fibrillation with fast ventricular rate, cardiology following and metopr olol has been increased and patient is maintained on Eliquis Acute obstructive Laryngitis with early tracheitis Leukopenia with lymphopenia Bradycardia, resolved Hyponatremia- resolved Transaminitis - improved Elevated inflammatory markers History of atrial fibrillation Right breast cancer Lymphoma on immunotherapy Hyperlipidemia Hypertension GERD Thyroid disorder Hard of hearing History of bowel resection Former smoker PLAN: Continue current medications. Patient is maintained 4 L of oxygen via nasal cannula and discuss with nursing staff about weaning as tolerated. Patient is extremely lethargic and dyspneic with minimal exertion and exhausted today. She had multiple episodes of loose stool and C. diff was negative. Imodium as needed. multiple medical consultations following. Cardiology following as well. She was started on metoprolol recently increased along with Eliquis. Patient has completed last dose of Remdesivir. Will repeat a.m. labs sodium was found to be 129. Will need PT/OT to reevaluate the patient as patient continues to be extremely weak and may require ECF for rehab once stabilized and discharged.
[2020-10-09] MEDS: TEMAZEPAM 15 MG CAP PO PRN (00:20)
--- NOTE | 2020-10-09 01:06 | PN ---
PROGRESS NOTE DATE OF SERVICE: 10/08/2020. REASON FOR FOLLOW UP: COVID-19 infection. INTERVAL HISTORY: The patient is currently afebrile. She is complaining of more shortness of breath. The patient denies any chest pain. Did have occasional cough. No nausea. No vomiting. No abdominal pain or diarrhea. EXAMINATION: Blood pressure 129/58. Pulse of 69. Temperature 99.4, she is 99% on 6 L nasal cannula. General description is an elderly female up in the bed in no distress. Respiratory system: Unlabored breathing, decreased intensity of breath sounds. No wheeze. Heart S1, S2. Regular rate and rhythm. Abdomen: Soft, no tenderness. LABORATORY DATA: DIAGNOSTIC IMPRESSION AND PLAN: Patient with acute COVID-19 infection completed her Remdesivir therapy, now seems to have shown worsening of her clinical status, may benefit from Actemra, will discuss with pulmonary. Continue current supportive treatment including Eliquis, vitamin C, and zinc. MMODL / IJN: [id number] /
[2020-10-09] MEDS: LEVOTHYROXINE 100 MCG TAB PO SCH (05:55)
[2020-10-09 07:00] LABS: Basophils % (A) 0 %; Eosinophils % (A) 1 %; HCT 40.3 % (34.0-46.0); HGB 14.1 gm/dL (11.4-16.0); Lymphocytes # (A) 0.6 k/uL (1.0-4.8); Lymphocytes % (A) 8 %; MCH 31.3 pg (25.0-35.0); MCHC 35.1 g/dL (31.0-37.0); Mean Platelet Volume 8.2; Monocytes # (A) 0.3 k/uL (0-1.0); Monocytes % (A) 4 %; Neutrophils # (A) 5.9 k/uL (1.3-7.7); Neutrophils % (A) 87 %; Platelet Count 189 k/uL (150-450); RBC 4.52 m/uL (3.80-5.40); RDW 12.3 % (11.5-15.5); WBC 6.8 k/uL (3.8-10.6)
--- NOTE | 2020-10-09 07:06 | XR ---
EXAMINATION TYPE: XR chest 1V portable DATE OF EXAM: 10/04/2020 HISTORY: Shortness of breath. COMPARISON: 10/03/2020 TECHNIQUE: Single view of the chest is submitted. FINDINGS: Demonstrated are scattered senescent parenchymal change. Bilateral airspace infiltrates persist without significant change. The heart is stable. Hilar and mediastinal structures are within normal limits. Degenerative changes are seen of the dorsal spine. IMPRESSION: 1. Bilateral airspace infiltrates persist without significant change.
[2020-10-09 07:44] LABS: ABG Base Excess 6.1 mmol/L; ABG HCO3 29 mmol/L (21-25); ABG Oxygen Saturation 82.8 % (94-97); ABG PCO2 34 mmHg (35-45); ABG PH 7.54 (7.35-7.45); ABG TCO2 30 mmol/L (19-24); Allen Test Performed? Yes
[2020-10-09] MEDS: ACETAMINOPHEN TAB 500 MG TAB PO PRN (07:45)
[2020-10-09 08:11] LABS: ABG PO2 43 mmHg (83-108)
--- NOTE | 2020-10-09 08:19 | XR ---
The EXAMINATION TYPE: XR chest 1V portable DATE OF EXAM: 10/09/2020 HISTORY: Shortness of breath. COMPARISON: 10/07/2020 TECHNIQUE: Single view of the chest is submitted. FINDINGS: Demonstrated are scattered senescent parenchymal change. Scattered infiltrates throughout both lung michelle remain essentially unchanged allowing for differenc es in technique. The heart is stable. Hilar and mediastinal structures are within normal limits. Degenerative changes are seen of the dorsal spine. IMPRESSION: 1. Scattered infiltrates throughout both lung michelle remain essentially unchanged allowing for diffe rences in technique.
[2020-10-09 08:22] LABS: African American GFR (CKD) 70 (>60 ml/min/1.73 sqM); Anion Gap 4 mmol/L; Blood Urea Nitrogen 34 mg/dL (7-17); Calcium 8.1 mg/dL (8.4-10.2); Carbon Dioxide 27 mmol/L (22-30); Chloride 97 mmol/L (98-107); Glucose 78 mg/dL (74-99); Non-African American GFR(CKD) 61 (>60 ml/min/1.73 sqM); Sodium 128 mmol/L (137-145)
[2020-10-09 08:30] LABS: Potassium 4.3 mmol/L (3.5-5.1)
[2020-10-09] MEDS: METOPROLOL TARTRATE 50 MG TAB PO SCH ×2 (09:58→19:58)
[2020-10-09] MEDS: APIXABAN 2.5 MG TABLET PO SCH ×2 (09:58→19:58)
[2020-10-09] MEDS: SENNOSIDES 8.6 MG TAB PO SCH ×2 (09:58→19:58)
[2020-10-09] MEDS: ZINC SULFATE 220 MG CAP PO SCH (09:59)
[2020-10-09] MEDS: ASCORBIC ACID 500 MG TAB PO SCH (09:59)
[2020-10-09] MEDS: CHOLECALCIFEROL 25 MCG (1000 IU) TABLET PO SCH (09:59)
[2020-10-09] MEDS: MULTIVITAMINS, THERA 1 EACH TAB PO SCH (09:59)
[2020-10-09] MEDS: CYANOCOBALAMIN 500 MCG TAB PO SCH (09:59)
[2020-10-09] MEDS ORDERED: MORPHINE SULFATE 2 MG/ML SYRINGE IVP PRN (10:42)
[2020-10-09] MEDS ORDERED: TOCILIZUMAB 560 MG in SODIUM CHLORIDE 0.9% 72 ML IV ONE (11:30)
[2020-10-09] MEDS ORDERED: FUROSEMIDE 10 MG/ML 4 ML VIAL IV STA (11:35)
--- NOTE | 2020-10-09 11:40 | P.PN ---
Subjective Progress Note Date: 10/09/20 Principal diagnosis: Acute hypoxic respiratory failure secondary to acute covid 19 pneumonia and acute diastolic congestive heart failure This is an 85-year-old female patient with a history of atrial fibrillation, COPD, lymphoma on active chemotherapy, hypothyroidism, hearing disorder, hyperlipidemia, right breast cancer, melanoma former smoker. She had presented to the emergency room back on 09/28/2020. We're consulted today for a chest x- ray showing possible pleural effusion. Computed tomography scan of the chest revealed bilateral patchy pneumonia with pleural effusions and basilar infiltrate and atelectasis. She is seen today on the regular medical floor. Currently sitting up in a chair at the bedside. Maintaining O2 saturation low 90s on 4 L/m per nasal cannula. She's afebrile. Sputum culture pending. Blood culture reveals no growth to date. White count 4.1. Hemoglobin 14.7. Sodium 134. Creatinine 0.90. Troponin is negative x 2. ProBNP 5330. She is initiated on Lasix 20 mg IV every 12 hours. Anticoagulated with Eliquis. Remains on vitamin supplements, dexamethasone. He has been initiated on Remdesivir. This is day number #4. The patient is seen today 10/05/2020 in follow-up on the regular medical floor. She is awake and alert in no acute distress. Still feeling quite weak and fatigued. Short of breath with exertion. She completed Remdesivir today. She remains on 4 L high flow nasal cannula to maintain O2 saturations in the 90s. Sputum culture revealed no growth. Blood cultures revealed no growth. White count 4.8. Hemoglobin 13.4. Sodium 134. Potassium 4.0. Creatinine 0.9. Remains on Decadron, Eliquis, vitamin supplements. Continued on IV diuretics. Progress note dated 10/06/2020. 5-year-old female, with a history of multiple medical problems including acute hypoxemic respiratory failure secondary to COVID 19 pneumonia, diastolic CHF, paroxysmal atrial fibrillation, hypertension, hyperlipidemia, lymphoma, hypothyroidism, hyperlipidemia, deafness, hypothyroidism, breast cancer, melanoma, and bowel resection. The patient states that she is feeling a bit better. She looks quite weak. She's on 4 L nasal cannula. Her saturations are reasonable. She's getting saline at 20 mL an hour. She apparently did have a significant coughing spell last night. Overall though, she does feel improved. She did complete REM. White count 7.02, hemoglobin 13.9, hematocrit 41.1, platelet count 206,000. D-dimer 0.27. I could not view the chest x-ray today, but the report mentions upper lung zone opacities which are unchanged compared to an x-ray done on October 04. Progress note dated 10/07/2020. 85-year-old female, with multiple medical problems including acute hypoxemic respiratory failure secondary to COVID 19 pneumonia, diastolic CHF, paroxysmal atrial fibrillation, hypertension, hyperlipidemia, lymphoma, hypothyroidism, hyperlipidemia, deafness, hypothyroidism, breast cancer, melanoma, and bowel r esection. Currently, the patient is on a nonrebreather mask, and 15 L high flow nasal O2. She's receiving saline at 75 mL an hour. Her saturations are 98%. She does not appear to be in any respiratory distress or difficulty. There is no conversational dyspnea or use of accessory muscles. Labs today include a sodium 134, potassium 4.2, chloride 93, CO2 31, anion gap 10, BUN 24, and creatinine 1.17. LDH is 1283. The C-reactive protein is 71. Pro-calcitonin level from yesterday was 0.16. Chest x-ray show some mild worsening of her bilateral patchy infiltrates. Patient was reevaluated today on 10/08/2020, patient continues to do poorly, she has no symptoms of diarrhea mostly. Continues to have shortness of breath with any activity. She is on 6 L nasal cannula and her O2 saturation is 92%. LDH is 1283 CRP is 70. Pro-calcitonin was 0.16. Chest x-ray yesterday 10/07/2020 showed slight worsening of her bilateral airspace opacities. Her sodium is trending down and is 129 today. Patient was on diuretics. And she is also having intermittent diarrhea. Patient did receive REM, she is on dexamethasone, and she received Gammagard. Given by oncology. Patient was reevaluated today on 10/09/2020, seems to be getting worse today, patient is on high FiO2. She is now on 90% and 60 L high flow cannula/airvo, patient continues to have marginal saturations in the 80s. Clinically however she doesn't seem to be bothered with her shortness of breath as much as she is bothered with abdominal pain which is across her abdomen but on physical examination her abdomen does not seem to be surgical, it is soft, nontender, no megaly, no rebound, and no guarding. Her admitting physician is handling her abdominal pain. And she would likely benefit from Dilaudid or some other narcotic for pain control considering the worsening of her pulmonary status and requirement for more FiO2, I went ahead and recommended actemra, I also discussed her condition with the infectious disease physician on the case. Earlier ABG on 6 L showed a pO2 of 43 pCO2 of 34 pH of 7.54 hence the patient was placed on a high flow oxygen. WBC count is 6.8 hemoglobin is 14.1. Screening for C. difficile toxin was negative yesterday as the patient had diarrhea. Last LDH 2 days ago was 1283 and C-reactive protein was 71. Chest x- ray today is showing worsening interstitial infiltrates/edema I will recommend a dose of Lasix today. Objective - Vital Signs Vital signs: Vital Signs Temp 98.6 F 10/09/20 07:39 Pulse 77 10/09/20 07:39 Resp 18 10/09/20 07:39 BP 155/61 10/09/20 07:39 Pulse Ox 86 L 10/09/20 07:39 Intake & Output 10/08/20 10/09/20 10/09/20 18:59 06:59 18:59 Output Total 750 Balance -750 Output: Urine 250 Stool 500 Other: Voiding Method Toilet Toilet # Voids 2 1 - Exam ENERAL EXAM: Alert, frail, 85-year-old female patient, on high flow oxygen via airvo HEAD: Normocephalic. EENT: PERRLA, EOMI, nonicteric, dry mucous membranes. LUNGS: Equal air entry with with crackles in the bilateral bases. CVS: S1 and S2 normal with no audible murmur, irregular rhythm. ABDOMEN: Soft, nontender. No guarding. No hepatosplenomegaly, normal bowel sounds, no guarding or rigidity. SPINE: No scoliosis or deformity SKIN: No rashes CENTRAL NERVOUS SYSTEM: No focal deficits, tone is normal in all 4 extremities. EXTREMITIES: There is no peripheral edema. No clubbing, no cyanosis. Peripheral pulses are intact. - Labs CBC & Chem 7: 10/09/20 05:40 10/09/20 05:40 Labs: Abnormal Lab Results - Last 24 Hours (Table) 10/08/20 10/09/20 10/09/20 Range/Units 11:56 05:40 07:38 ABG pH 7.54 H (7.35-7.45) ABG pCO2 34 L (35-45) mmHg ABG pO2 43 L* (83-108) mmHg ABG HCO3 29 H (21-25) mmol/L ABG Total CO2 30 H (19-24) mmol/L ABG O2 Saturation 82.8 L (94-97) % Sodium 129 L 128 L (137-145) mmol/L Chloride 94 L 97 L (98-107) mmol/L BUN 32 H 34 H (7-17) mg/dL Creatinine 1.15 H (0.52-1.04) mg/dL Glucose 122 H (74-99) mg/dL Calcium 8.3 L 8.1 L (8.4-10.2) mg/dL Microbiology - Last 24 Hours (Table) 10/08/20 09:46 Stool Culture - Preliminary Stool 10/03/20 09:15 Blood Culture - Preliminary Blood No Growth after 120 hours Assessment and Plan Assessment: Impression: Acute hypoxic respiratory failure secondary to cope with 19 pneumonia and acute diastolic congestive heart failure, patient seems to be clinically worse today compared to yesterday. History of lymphoma, on chemotherapy. Paroxysmal atrial fibrillation. Hypothyroidism. Benign essential hypertension. Previous bowel resection. History of melanoma Recommendation: Discussed patient condition with infectious disease on the case. Trial of Lasix 40 mg IV push 1. Continue high flow oxygen. Continue the Covid 19 cocktails. Including Decadron and anticoagulation therapy. And vitamins.We will add actemra Patient finished REM treatment. Continue to monitor electrolytes. Continue anticoagulation therapy. Patient is on eliquis We'll continue to follow, prognosis is definitely guarded. Pain meds for abdominal pain we'll continue to follow Admitting physician should at least discussed the CODE STATUS with this patient, I would strongly recommend DO NOT RESUSCITATE CODE STATUS Time with Patient: Less than 30
--- NOTE | 2020-10-09 11:45 | US ---
EXAMINATION TYPE: US abdomen complete DATE OF EXAM: 10/09/2020 COMPARISON: None CLINICAL HISTORY: abdominal pain. Pain. Portable exam. Covid +. Poor historian. GB removed. EXAM MEASUREMENTS: Liver Length: 15.7 cm CBD: 2.0 cm Spleen: 10.3 cm Right Kidney: 9.2 x 3.9 x 3.2 cm Left Kidney: 10.3 x 4.1 x 3.7 cm Limited due to patient unable to move and bowel gas Pancreas: Echogenic in appearance. Main pancreatic duct = 1.9 mm. Liver: Scanned through ribs due to overlying bowel gas- limited visualization. No prominent intrahep atic biliary dilatation seen. visualized. Gallbladder: Surgically absent Evidence for sonographic Liriano's sign: neg CBD: Dilated. Spleen: wnl Right Kidney: No hydronephrosis or masses seen Left Kidney: Limited visualization due to bowel gas Upper IVC: wnl Abd Aorta: Obscured by overlying bowel gas The intrahepatic portion of the IVC and proximal abdominal aorta are within normal limits. There is no evidence of cholelithiasis. Common bile duct is unremarkable. The visualized portions of the hooks creas are homogenous. The spleen is unremarkable. Kidneys are symmetric and free of hydronephrosis. No renal lesions are seen. IMPRESSION: 1. Limited examination as noted above.
[2020-10-09] MEDS: DEXAMETHASONE SOD PHOSPHATE 10 MG/ML 1 ML VIAL IV SCH (11:57)
--- NOTE | 2020-10-09 13:28 | XR ---
EXAMINATION TYPE: XR abdomen 2V DATE OF EXAM: 10/09/2020 HISTORY: Pain. Technique: 2 views of the abdomen are submitted. Comparison: 10/06/2018 Findings: Dilated small bowel noted measuring up to 4 cm. Small amount of air seen within the colon. The findin gs are nonspecific. No evidence for pneumoperitoneum. Pulmonary infiltrates are noted. No mass effects are noted. No renal calcifications are identified. IMPRESSION: 1. Nonspecific bowel gas pattern . Distal obstruction is difficult to exclude. Correlate clinically.
--- NOTE | 2020-10-09 14:27 | P.PN ---
Subjective Progress Note Date: 10/09/20 Principal diagnosis: Covid 19, Hx NHL In follow-up today patient is laying in the bed, very weak, short of breath at rest, has some difficulty speaking. Objective - Vital Signs Vital signs: Vital Signs Temp 98.2 F 10/09/20 13:53 Pulse 60 10/09/20 13:53 Resp 18 10/09/20 13:53 BP 121/60 10/09/20 13:53 Pulse Ox 96 10/09/20 13:53 Intake & Output 10/08/20 10/09/20 10/09/20 18:59 06:59 18:59 Output Total 750 Balance -750 Output: Urine 250 Stool 500 Other: Voiding Method Toilet Toilet # Voids 2 1 - Constitutional General appearance: Present: average body habitus, mild distress - EENT Eyes: Present: anicteric sclerae, EOMI ENT: Present: hearing grossly normal - Musculoskeletal Musculoskeletal: Present: generalized weakness - Labs CBC & Chem 7: 10/09/20 05:40 10/09/20 05:40 Labs: Abnormal Lab Results - Last 24 Hours (Table) 10/08/20 10/09/20 10/09/20 Range/Units 11:56 05:40 05:40 Lymphocytes # 0.6 L (1.0-4.8) k/uL ABG pH (7.35-7.45) ABG pCO2 (35-45) mmHg ABG pO2 (83-108) mmHg ABG HCO3 (21-25) mmol/L ABG Total CO2 (19-24) mmol/L ABG O2 Saturation (94-97) % Sodium 128 L (137-145) mmol/L Chloride 97 L (98-107) mmol/L BUN 34 H (7-17) mg/dL Calcium 8.1 L (8.4-10.2) mg/dL Lactate Dehydrogenase 1354 H (313-618) U/L C-Reactive Protein (<10.0) mg/L 10/09/20 10/09/20 Range/Units 05:40 07:38 Lymphocytes # (1.0-4.8) k/uL ABG pH 7.54 H (7.35-7.45) ABG pCO2 34 L (35-45) mmHg ABG pO2 43 L* (83-108) mmHg ABG HCO3 29 H (21-25) mmol/L ABG Total CO2 30 H (19-24) mmol/L ABG O2 Saturation 82.8 L (94-97) % Sodium (137-145) mmol/L Chloride (98-107) mmol/L BUN (7-17) mg/dL Calcium (8.4-10.2) mg/dL Lactate Dehydrogenase (313-618) U/L C-Reactive Protein 199.2 H (<10.0) mg/L Microbiology - Last 24 Hours (Table) 10/03/20 09:15 Blood Culture - Final Blood No Growth after 144 hours 10/08/20 09:46 Stool Culture - Preliminary Stool - Imaging and Cardiology Chest x-ray: report reviewed Abdominal x-ray: report reviewed US - abdomen: report reviewed Assessment and Plan (1) COVID-19 Narrative/Plan: Patient is suffering from sequela secondary to covid 19 infection. Current Visit: Yes Status: Acute Priority: High Code(s): U07.1 - COVID-19 SNOMED Code(s): 695102577 (2) Lymphoma Narrative/Plan: Patient does have a history of NHL. Treated in August with monoclonal antibod y therapy. Since her admission with acute Covid infection she has received IVIG 2 doses. Patient was due to follow-up with a PET scan to evaluate her lymphoma in the next week or so. Unfortunately, she is likely to succumb to Covid before then. Current Visit: No Status: Chronic Priority: Low Code(s): C85.90 - NON- HODGKIN LYMPHOMA, UNSPECIFIED, UNSPECIFIED SITE SNOMED Code(s): 701133496
--- NOTE | 2020-10-09 15:39 | P.PN ---
Subjective Progress Note Date: 10/09/20 HISTORY OF PRESENT ILLNESS: This is a pleasant 85-year-old female past medical history significant for GERD, hypertension, hyperlipidemia, lymphoma receiving immunotherapy. She used to follow in the office with Dr. Casarez, last seen in 2018. She does not follow with a zyglo inspector at this time. We have been asked to see in consultation for new onset atrial fibrillation. It is in the patient's history that she has had atrial fibrillation, however, patient is not on anticoagulation and office notes do not mention any episodes of atrial fibrillation. Patient presents to the [facility] with complaints of sore throat, felt her throat was closing off, lethargy, myalgias. Patient was recently diagnosis covid-19 infection 3 days ago and she states that her granddaughter was tested positive for covid-19. In the ER, CT of the soft tissue neck showing airway narrowing at the level of the vocal cords measuring up to 3.7 mm in the left apical lung mass. On 09/30, patient was found to be sinus bradycardia, HR 30s during her sleep. Per Nursing she has been getting bradycardic with Remdesivir medication. Laboratory data reviewed, sodium 1:30, potassium 4.0, creatinine 0.85, magnesium 2.1, elevated liver enzymes AST 94, PLT 171 , D-dimer 0.28 Vital signs blood pressure 118/82, heart rate 70s-120. Patient does not currently take any cardiac medications she is not on an anticoagulation DIAGNOSTICS Echocardiogram 02/2020 revealed left ventricular systolic function with an EF between 55-60%, mild aortic valve sclerosis, moderate AR, moderate MR, mild mitral stenosis, moderate TR, borderline pulmonary hypertension. Telemetry tracings indicate 10/02 around 1020am episode of atrial fibrillation RVR 170s. 10/03 another episode of atrial fibrillation with HR 160s. Patient also converts back at times to sinus tachycardia Chest xray Consistent with pneumonia On 10/04/20: Overnight A-Team called due to increased HR in the 160s, Patient noted to be in atrial fibrillation. Patient given one time dose of Lopressor 12.5mg PO. Troponin negative x 2, TSH 1.9, BNP 5330. Spoke with patient's and he states she has been told she has had atrial fibrillation before, but that it was controlled and "not critical where she had to do anything about". He doesn't recall her being on an anticoagulation or metoprolol. He does endorse some worries about a blood thinner due to his being very weak. 10/05/20: Patient's telemetry reviewed Patient continues to be in and out of atrial fibrillation. No episodes of tachycardia or Afib with RVR overnight. HR 90s-100s this morning. BP 122/75 afebrile, continues to require oxygen, currently on 4L nasal cannula. Laboratory data reviewed, WBC 4.8, hemoglobin 15.4, platelets 180, sodium 134, potassium 4.0, serum creatinine 0.9, magnesium 1.7, AST 52, ALT 12. Patient is currently maintained on metoprolol titrate 0.5 mg 3 times a day, Eliquis 2.5 mg twice a day 10/08/2020 Cardiology was reconsulted yesterday secondary to A. fib with RVR. A team was called yesterday secondary to patient being in A. fib with RVR with heart rate in the 150s. Patient had not received her morning metoprolol at that time. Patient was given a dose of metoprolol IV push and also given a dose of oral metoprolol. Patient was in atrial fibrillation this morning. However she has since converted to sinus mechanism with a heart rate in the 70s. She remains in Eliquis for anticoagulation. Blood pressure 126/78. She is on 6 L nasal cannula with oxygen saturations greater than 92%. Temperature this morning 99.6. 10/09/2020 Patient is being moved to the cardiac step down unit secondary to worsening clinical status. Patient remains on sinus mechanism on telemetry. She remains on anticoagulation with Eliquis. Blood pressure 121/60. He is afebrile. PHYSICAL EXAM: Thorough physical exam not completed secondary to limited evaluation/examination due to Covid19 ASSESSMENT: Covid 19 New-onset paroxysmal atrial fibrillation with RVR, currently maintaining sinus mechanism Hypertension Hyperlipidemia PLAN: Continue telemetry monitoring Continue Eliquis Continue current dose of metoprolol No further recommendations from a cardiac standpoint. We will sign off. Please reconsult if needed. Nurse practitioner note has been reviewed by physician. Signing provider agrees with the documented findings, assessment, and plan of care. Objective - Vital Signs Vital signs: Vital Signs Temp 98.2 F 10/09/20 13:53 Pulse 60 04/06/21 13:53 Resp 18 10/09/20 13:53 BP 121/60 10/09/20 13:53 Pulse Ox 96 10/09/20 13:53 Intake & Output 10/08/20 10/09/20 10/09/20 18:59 06:59 18:59 Output Total 750 Balance -750 Output: Urine 250 Stool 500 Other: Voiding Method Toilet Toilet # Voids 2 1 - Labs CBC & Chem 7: 10/09/20 05:40 10/09/20 05:40 Labs: Abnormal Lab Results - Last 24 Hours (Table) 10/08/20 10/09/20 10/09/20 Range/Units 11:56 05:40 05:40 Lymphocytes # 0.6 L (1.0-4.8) k/uL ABG pH (7.35-7.45) ABG pCO2 (35-45) mmHg ABG pO2 (83-108) mmHg ABG HCO3 (21-25) mmol/L ABG Total CO2 (19-24) mmol/L ABG O2 Saturation (94-97) % Sodium 128 L (137-145) mmol/L Chloride 97 L (98-107) mmol/L BUN 34 H (7-17) mg/dL Calcium 8.1 L (8.4-10.2) mg/dL Lactate Dehydrogenase 1354 H (313-618) U/L C-Reactive Protein (<10.0) mg/L 10/09/20 10/09/20 Range/Units 05:40 07:38 Lymphocytes # (1.0-4.8) k/uL ABG pH 7.54 H (7.35-7.45) ABG pCO2 34 L (35-45) mmHg ABG pO2 43 L* (83-108) mmHg ABG HCO3 29 H (21-25) mmol/L ABG Total CO2 30 H (19-24) mmol/L ABG O2 Saturation 82.8 L (94-97) % Sodium (137-145) mmol/L Chloride (98-107) mmol/L BUN (7-17) mg/dL Calcium (8.4-10.2) mg/dL Lactate Dehydrogenase (313-618) U/L C-Reactive Protein 199.2 H (<10.0) mg/L Microbiology - Last 24 Hours (Table) 10/03/20 09:15 Blood Culture - Final Blood No Growth after 144 hours 10/08/20 09:46 Stool Culture - Preliminary Stool
[2020-10-09] MEDS: ONDANSETRON 4 MG/2 ML VIAL IVP PRN (17:21)
[2020-10-09] MEDS: MORPHINE SULFATE 2 MG/ML SYRINGE IVP PRN (17:23)
--- NOTE | 2020-10-09 18:51 | P.PN ---
Subjective Progress Note Date: 10/09/20 Principal diagnosis: Acute hypoxic failure secondary to coven 19 pneumonia and acute diastolic congestive heart failure 85-year-old female was admitted to the hospital with significant medical history of atrial fibrillation, COPD, lymphoma on active chemotherapy, hypothyroidism, hearing disorder, hyperlipidemia, right breast cancer, melanoma and a former smoker. Patient was admitted to the hospital with covid- 19 pneumonia. Upon evaluation this a.m., patient had mild respiratory distress with oxygen saturations 82-86% on 6-10 L of high flowarterial blood gas was obtainedairflow 60 L with oxygen saturation in the 90%. Awaiting on pulmonary critical care for recommendations for possibly actemra. Due to patient's discomfort of the abdomen ordered abdominal series x-ray, and provided low dose of analgesics. chest x-ray shows worsening interstitial infil trates/edemaawaiting on critical care for recommendations with possible loop diuretic. Objective - Vital Signs Vital signs: Vital Signs Temp 98.2 F 10/09/20 13:53 Pulse 60 10/09/20 13:53 Resp 18 10/09/20 13:53 BP 121/60 10/09/20 13:53 Pulse Ox 96 10/09/20 13:53 Intake & Output 10/08/20 10/09/20 10/09/20 18:59 06:59 18:59 Intake Total 100 Output Total 750 1 Balance -750 99 Intake: Intake, IV Titration 100 Amount Tocilizumab 560 mg In 100 Sodium Chloride 0.9% 72 ml @ 100 mls/hr IV ONCE ONE Rx#:[id number] Output: Urine 250 1 Stool 500 Other: Voiding Method Toilet Toilet # Voids 2 1 - Constitutional General appearance: Present: mild distress - EENT Eyes: Present: EOMI, PERRLA ENT: Present: normal oropharynx Ears: bilateral: normal - Neck Neck: Present: normal ROM Carotids: bilateral: upstroke normal Thyroid: bilateral: normal size - Respiratory Respiratory: bilateral: diminished (Anterior and posterior lung michelle) - Cardiovascular Details: Normal sinus rhythm Heart rate: 60 Rhythm: regular Heart sounds: normal: S1, S2 - Peripheral pulses radial pulse Peripheral Pulses: bilateral: Normal dorsalis pedis Peripheral Pulses: bilateral: Normal - Gastrointestinal General gastrointestinal: Present: soft, tenderness - Integumentary Integumentary: Present: pale - Neurologic Neurologic: Present: CNII-XII intact - Musculoskeletal Musculoskeletal: Present: generalized weakness - Allied health notes Allied health notes reviewed: nursing - Labs CBC & Chem 7: 10/09/20 05:40 10/09/20 05:40 Labs: Abnormal Lab Results - Last 24 Hours (Table) 10/08/20 10/09/20 10/09/20 Range/Units 11:56 05:40 05:40 Lymphocytes # 0.6 L (1.0-4.8) k/uL ABG pH (7.35-7.45) ABG pCO2 (35-45) mmHg ABG pO2 (83-108) mmHg ABG HCO3 (21-25) mmol/L ABG Total CO2 (19-24) mmol/L ABG O2 Saturation (94-97) % Sodium 128 L (137-145) mmol/L Chloride 97 L (98-107) mmol/L BUN 34 H (7-17) mg/dL Calcium 8.1 L (8.4-10.2) mg/dL Lactate Dehydrogenase 1354 H (313-618) U/L C-Reactive Protein (<10.0) mg/L 10/09/20 10/09/20 Range/Units 05:40 07:38 Lymphocytes # (1.0-4.8) k/uL ABG pH 7.54 H (7.35-7.45) ABG pCO2 34 L (35-45) mmHg ABG pO2 43 L* (83-108) mmHg ABG HCO3 29 H (21-25) mmol/L ABG Total CO2 30 H (19-24) mmol/L ABG O2 Saturation 82.8 L (94-97) % Sodium (137-145) mmol/L Chloride (98-107) mmol/L BUN (7-17) mg/dL Calcium (8.4-10.2) mg/dL Lactate Dehydrogenase (313-618) U/L C-Reactive Protein 199.2 H (<10.0) mg/L Microbiology - Last 24 Hours (Table) 10/03/20 09:15 Blood Culture - Final Blood No Growth after 144 hours 10/08/20 09:46 Stool Culture - Preliminary Stool - Imaging and Cardiology Chest x-ray: report reviewed Assessment and Plan Assessment: Acute hypoxic respiratory failure second to covid-19 pneumonia Acute diastolic congestive heart failure History of lymphoma on chemotherapy currently Paroxysmal atrial fibrillation Hypothyroidism Hypertension Previous bowel resection History of melanoma Plan: Coven 19 pneumonia with hypoxic respiratory failurecontinue consultation and recommendations from pulmonary critical care Acute diastolic heart failureawaiting on 1 dose of loop diuretics from pulmonary critical care Continue coven 19 cocktails Continue to monitor electrolytes Continue eliquis anticoagulation therapy continue medical management Further recommendations based on clinical presentation and outcomes Time with Patient: Greater than 30
[2020-10-09] MEDS ORDERED: HYDROmorphone 0.5 MG/0.5 ML SYRINGE IVP STA (19:45)
[2020-10-09] MEDS: PROCHLORPERAZINE INJ 10 MG/2 ML VIAL IVP PRN (20:00)
[2020-10-09] MEDS ORDERED: ONDANSETRON 4 MG/2 ML VIAL IVP PRN (20:12)
[2020-10-09] MEDS: ALBUTEROL HFA INHALER INHALATION SCH (20:26)
[2020-10-09] MEDS ORDERED: LORazepam 2 MG/ML INJ IV STA (22:45)
[2020-10-10] MEDS: MORPHINE SULFATE 2 MG/ML SYRINGE IVP PRN ×2 (01:21→12:14)
--- NOTE | 2020-10-10 05:52 | PN ---
PROGRESS NOTE DATE OF SERVICE: 10/09/2020 REASON FOR FOLLOWUP: COVID-19 infection. INTERVAL HISTORY: Patient is currently afebrile. The patient noticed to have worsening of her respiratory status requiring a BiPAP. The patient has been feeling weak, lethargic. Denies any chest pain. No abdominal pain. No diarrhea. PHYSICAL EXAMINATION: Blood pressure 148/66, pulse of 72, temperature 97.6. She is 93% on BiPAP. General description is an elderly female lying in bed in no distress. Respiratory system: Unlabored breathing, coarse breath sounds bilaterally. No wheeze. HEART: S1, S2. Regular rate and rhythm. ABDOMEN: Soft, no tenderness. LABS: Hemoglobin is 14.1, white count 6.8, BUN of 34, creatinine 0.87. Procalcitonin 0.7. CRP is 199. IMPRESSION/PLAN: Patient with acute respiratory failure secondary to COVID-19 infection. This patient has completed her remdesivir therapy, now with worsening of her respiratory failure requiring more high-flow oxygen. Actemra was discussed with Pulmonary and the patient received a dose. She will be continued on zinc, dexamethasone, ascorbic acid and monitor clinical course closely. MMODL / IJN: [id number] /
[2020-10-10] MEDS: LEVOTHYROXINE 100 MCG TAB PO SCH (06:39)
[2020-10-10] MEDS ORDERED: METOCLOPRAMIDE 5 MG/ML 2 ML VIAL IVP SCH (07:15)
[2020-10-10] MEDS: ALBUTEROL HFA INHALER INHALATION SCH ×3 (07:29→17:26)
[2020-10-10] MEDS ORDERED: METOCLOPRAMIDE 5 MG/ML 2 ML VIAL IVP PRN (07:49)
[2020-10-10] MEDS: PROCHLORPERAZINE INJ 10 MG/2 ML VIAL IVP PRN (08:07)
--- NOTE | 2020-10-10 08:26 | XR ---
EXAMINATION TYPE: XR chest 1V portable DATE OF EXAM: 10/10/2020 COMPARISON: 10/09/2020 INDICATION: Short of breath TECHNIQUE: Single frontal view of the chest is obtained. FINDINGS: The heart size is normal. The pulmonary vasculature is normal. Patchy bilateral lung infiltrates are present. Axillary surgical clips around the right Left side port is present with the tip in superior vena cava region. IMPRESSION: 1. Stable appearance portable chest. Patchy infiltrates are unchanged
--- NOTE | 2020-10-10 08:28 | P.PN ---
Subjective Progress Note Date: 10/10/20 Principal diagnosis: Acute hypoxic failure secondary to covid 19 pneumonia and acute diastolic congestive heart failure 85-year-old female was admitted to the hospital with significant medical history of atrial fibrillation, COPD, lymphoma on active chemotherapy, hypothyroidism, hearing disorder, hyperlipidemia, right breast cancer, melanoma and a former smoker. Patient was admitted to the hospital with covid- 19 pneumonia. Upon evaluation this a.m., patient had mild respiratory distress with oxygen saturations 82-86% on 6-10 L of high flowarterial blood gas was obtainedairflow 60 L with oxygen saturation in the 90%. Awaiting on pulmonary critical care for recommendations for possibly actemra. Due to patient's discomfort of the abdomen ordered abdominal series x-ray, and provided low dose of analgesics. chest x-ray shows worsening interstitial infil trates/edemaawaiting on critical care for recommendations with possible loop diuretic. October Evaluated 85-year-old female, on the selective care unit this a.m. Upon night rounds last night patient oxygen saturation was not able to contain oxygen greater than 85% with high flow oxygen, patient was placed on BiPAP of settings 12/5, with the FOI2 of 90 to 100%. Patient was having intermittent nausea additional Compazine and reglan was added as needed for nausea sensation. Abdominal x-ray reviewed possible bowel obstruction consulted surgery to look at films and make clinical judgment. Patient has guarded prognosis at this time. Objective - Vital Signs Vital signs: Vital Signs Temp 97.6 F 10/09/20 20:00 Pulse 62 10/10/20 04:00 Resp 24 10/10/20 04:00 BP 115/57 10/10/20 04:00 Pulse Ox 94 L 10/10/20 04:00 Intake & Output 10/09/20 10/10/20 10/10/20 18:59 06:59 18:59 Intake Total 100 Output Total 1 1601 Balance 99 -1601 Weight 62.5 kg Intake: Intake, IV Titration 100 Amount Tocilizumab 560 mg In 100 Sodium Chloride 0.9% 72 ml @ 100 mls/hr IV ONCE ONE Rx#:[id number] Output: Urine 1 601 Uretheral (Fernández) 600 Stool 1000 Other: Voiding Method Toilet Indwelling Catheter # Voids 1 - Constitutional Constitutional Comment(s): Moderate distress - EENT Ears: bilateral: normal - Neck Carotids: bilateral: upstroke normal Thyroid: bilateral: normal size - Respiratory Respiratory: bilateral: diminished (Anterior lung michelle diminished), rhonchi (Course rhonchi to the anterior bases) - Cardiovascular Details: Normal sinus rhythm Heart rate: 62 Rhythm: regular Heart sounds: normal: S1, S2 - Peripheral pulses radial pulse Peripheral Pulses: bilateral: Normal dorsalis pedis Peripheral Pulses: bilateral: Normal - Gastrointestinal General gastrointestinal: Present: absent bowel sounds Localized gastrointestinal: tender: diffuse - Integumentary Integumentary: Present: decreased turgor, pale - Musculoskeletal Musculoskeletal: Present: generalized weakness - Allied health notes Allied health notes reviewed: nursing - Labs CBC & Chem 7: 10/09/20 05:40 10/09/20 05:40 Labs: Abnormal Lab Results - Last 24 Hours (Table) 10/08/20 10/09/20 10/09/20 Range/Units 11:56 05:40 05:40 Lymphocytes # 0.6 L (1.0-4.8) k/uL Sodium 128 L (137-145) mmol/L Chloride 97 L (98-107) mmol/L BUN 34 H (7-17) mg/dL Calcium 8.1 L (8.4-10.2) mg/dL Lactate Dehydrogenase 1354 H (313-618) U/L C-Reactive Protein (<10.0) mg/L Procalcitonin (0.02-0.09) ng/mL 10/09/20 10/09/20 Range/Units 05:40 05:40 Lymphocytes # (1.0-4.8) k/uL Sodium (137-145) mmol/L Chloride (98-107) mmol/L BUN (7-17) mg/dL Calcium (8.4-10.2) mg/dL Lactate Dehydrogenase (313-618) U/L C-Reactive Protein 199.2 H (<10.0) mg/L Procalcitonin 0.31 H (0.02-0.09) ng/mL Microbiology - Last 24 Hours (Table) 10/03/20 09:15 Blood Culture - Final Blood No Growth after 144 hours - Imaging and Cardiology Chest x-ray: image reviewed Assessment and Plan Assessment: Acute hypoxic respiratory failure second to covid-19 pneumonia Acute diastolic congestive heart failure History of lymphoma on chemotherapy currently Paroxysmal atrial fibrillation Hypothyroidism Hypertension Previous bowel resection History of melanoma Plan: Coven 19 pneumonia with hypoxic respiratory failurecontinue consultation and recommendations from pulmonary critical care Acute diastolic heart failureawaiting on 1 dose of loop diuretics from pulmonary critical care Continue BiPAP for respiratory support and to increase oxygen patient unable to have oxygen saturation's greater than 80% on high flow nasal cannula Continue covid 19 cocktails Continue to monitor electrolytes Continue eliquis anticoagulation therapy continue medical management Further recommendations based on clinical presentation and outcomes Time with Patient: Greater than 30
[2020-10-10] MEDS: CHOLECALCIFEROL 25 MCG (1000 IU) TABLET PO SCH (10:11)
[2020-10-10] MEDS: ASCORBIC ACID 500 MG TAB PO SCH (10:11)
[2020-10-10] MEDS: CYANOCOBALAMIN 500 MCG TAB PO SCH (10:11)
[2020-10-10] MEDS: METOPROLOL TARTRATE 50 MG TAB PO SCH ×2 (10:12→20:35)
[2020-10-10] MEDS: ZINC SULFATE 220 MG CAP PO SCH (10:12)
[2020-10-10] MEDS: MULTIVITAMINS, THERA 1 EACH TAB PO SCH (10:12)
[2020-10-10] MEDS: SENNOSIDES 8.6 MG TAB PO SCH ×2 (10:12→20:35)
[2020-10-10] MEDS: APIXABAN 2.5 MG TABLET PO SCH (10:26)
[2020-10-10] MEDS: DEXAMETHASONE SOD PHOSPHATE 10 MG/ML 1 ML VIAL IV SCH (10:26)
--- NOTE | 2020-10-10 10:57 | P.GSCN ---
<Mariola Vargas - Last Filed: 10/10/20 15:13> History of Present Illness Consult date: 10/10/20 History of present illness: CHIEF COMPLAINT: Shortness of breath Reason for consult: Possible bowel obstruction HISTORY OF PRESENT ILLNESS: This is a 85-year-old female with a past medical history GERD, hypertension, hyperlipidemia, lymphoma receiving immunotherapy, right breast cancer and melanoma. She's also had prior history of bowel obstruction requiring bowel resection. She has surgical history of appendectomy, cholecystectomy and repair of paraesophageal hiatal hernia. Patient presented to the emergency room with complaints of shortness of breath and difficulty swallowing. She was found to be Covid 19 positive with acute respiratory failure and is also treated for an acute diastolic CHF exacerbation. Patient had a decline in her respiratory status yesterday and required to be placed on BiPAP. She also had been complaining of abdominal pain x 2 days. She is been having nausea and vomiting. The last time she vomited was yesterday evening. And it was mostly bile. Patient does report a bowel movement on October 08 that was diarrhea. She rates her abdominal pain 5 out of 10 and it's mostly in the mid abdomen. Abdominal x-ray from yesterday shows nonspecific bowel gas pattern and distal obstruction difficult to exclude. She is afebrile. PAST MEDICAL HISTORY: See list. PAST SURGICAL HISTORY: See list. MEDICATIONS: See list. ALLERGIES: See list. SOCIAL HISTORY: No illicit drug use. REVIEW OF SYSTEMS: CONSTITUTIONAL: Denies fever or chills. HEENT: Denies blurred vision, vision changes, or eye pain. Denies hemoptysis ENDOCRINE: Denies heat or cold intolerance. CARDIOVASCULAR: Denies chest pain or pressure. RESPIRATORY: No shortness of breath. GASTROINTESTINAL: Denies abdominal pain. Denies nausea or vomiting. NEURO: Denies history of seizures. PSYCH: No depression or suicidal ideation HEMATOLOGIC: Denies bleeding disorders. LYMPHATIC: The patient denies any lumps and bumps around the neck. GENITOURINARY: Denies any blood in urine or increased urinary frequency. MUSCULOSKELETAL: Denies myalgias. Denies joint swelling. Denies decreased range of motion beyond patients baseline. SKIN: Denies pruitis. Denies rash. PHYSICAL EXAM: VITAL SIGNS: Reviewed GENERAL: Well-developed in no acute distress. HEENT: No sclera icterus. Extraocular movements grossly intact. Moist buccal mucosa. Head is atraumatic, normocephalic. Hears conversational speech. No nasal drainage. NECK: Supple without lymphadenopathy. CHEST: Non-labored respirations and equal bilateral excursions. CARDIOVASCULAR: Palpable 2+ radial pulses. ABDOMEN: Soft. Mid abdomen tenderness with palpation. Mildly distended. MUSCULOSKELETAL: No clubbing or cyanosis. NEUROLOGIC: No focal or lateralizing signs. Cranial nerves II through XII grossly intact. PSYCH: Appropriate affect. Alert and oriented to person, place and time. SKIN: Well perfused. Good skin turgor. LABORATORY DATA: WBC 6.8 Hgb 14.1 platelets 189 Sodium 128 BUN 34 creatinine 0.87 CRP 199.2 Pro-calcitonin 0.31 C. diff negative IMAGING: Abdominal x-ray from yesterday shows nonspecific bowel gas pattern and distal obstruction difficult to exclude. ASSESSMENT: 1. Abdominal pain with abdominal distention. Abdominal x-ray showing nonspecific bowel pattern and distal obstruction difficult to exclude 2. Covid 19 pneumonia 3. Acute hypoxic respiratory failure secondary to Covid 19 pneumonia and acute diastolic congestive heart failure 4. History of lymphoma on immunotherapy 5. Paroxysmal atrial fibrillation anticoagulated Eliquis 6. Hypothyroidism 7. Hypertension 8. Prior history of bowel obstruction with bowel resection PLAN: -Continue supportive care -Continue antiemetics as needed -Continue pain medication as needed -Further recommendations forthcoming per surgeon Physician Director Of [employer]ch[employer] note has been reviewed by physician. Signing provider agrees with the documented findings, assessment, and plan of care. Past Medical History Past Medical History: Atrial Fibrillation, Cancer, COPD, GERD/Reflux, Hearing Disorder / Deafness, Hyperlipidemia, Osteoarthritis (OA), Pneumonia, Thyroid Disorder Additional Past Medical History / Comment(s): Constipation, bowel adhesions. Hx bowel obstruction, right breast cancer-1997 no chemo or radiation, melanoma face 2014, osteoporosis, pneumonia Aug 2016, Lymphoma receives immunotherapy q60d, active shingles History of Any Multi-Drug Resistant Organisms: MRSA Year Discovered:: 2010? MDRO Source:: post surgical wound from bowel resection Past Surgical History: Appendectomy, Bowel Resection, Breast Surgery, Cholecystectomy, Hysterectomy Additional Past Surgical History / Comment(s): Bilateral cataracts, right mastectomy, port a cath left upper chest Past Anesthesia/Blood Transfusion Reactions: No Reported Reaction Additional Past Anesthesia/Blood Transfusion Reaction / Comm: no hx blood transfusion Past Psychological History: No Psychological Hx Reported Smoking Status: Former smoker Past Alcohol Use History: None Reported Past Drug Use History: None Reported - Past Family History Sister(s) Family Medical History: Cancer Additional Family Medical History / Comment(s): breast Cancer in 4 sisters Son(s) Family Medical History: Cancer Additional Family Medical History / Comment(s): LYMPHOMA, Congential heart problem. Daughter(s) Family Medical History: Cancer Additional Family Medical History / Comment(s): colon cancer Brother(s) Family Medical History: Cancer Additional Family Medical History / Comment(s): ONE BROTHER BLADDER CA, ONE WITH LUNG CA Mother Family Medical History: Cancer Additional Family Medical History / Comment(s): Stomach cancer Father Family Medical History: CVA/TIA Medications and Allergies Home Medications Medication Instructions Recorded Confirmed Type Acetaminophen [Tylenol Extra 500 - 1,000 mg PO TID PRN 09/26/18 09/28/20 History Strength] Levothyroxine Sodium [Synthroid] 100 mcg PO DAILY 08/02/19 09/28/20 History Ubidecarenone [Co Q-10] 300 mg PO DAILY 08/25/19 09/28/20 History Albuterol Inhaler [Ventolin Hfa 2 puff INHALATION RT-Q4H PRN 12/27/19 09/28/20 History Inhaler] Ascorbic Acid [Vitamin C] 1,000 mg PO DAILY 06/02/20 09/28/20 History Cholecalciferol [Vitamin D3 (25 50 mcg PO DAILY 06/02/20 09/28/20 History Mcg = 1000 Iu)] Cyanocobalamin (Vitamin B-12) 1,000 mcg PO DAILY 06/02/20 09/28/20 History [Vitamin B-12] [place]-3 Fatty Acids/Fish Oil [Fish 1 cap PO DAILY 06/02/20 09/28/20 History Oil 1,000 mg Softgel] Albuterol Nebulized [Ventolin 2.5 mg INHALATION RT-QID PRN 09/28/20 09/28/20 History Nebulized] Multivit-Min36/Iron/Folic Acid 1 tab PO DAILY 09/28/20 09/28/20 History [Geritol Complete Tablet] Apixaban [Eliquis] 2.5 mg PO BID 30 Days #60 tablet 10/04/20 Rx Allergies Allergy/AdvReac Type Severity Reaction Status Date / Time Iodinated Contrast Media Allergy Severe Anaphylaxis Verified 09/28/20 11:47 [Iodinated Contrast Media - IV Dye] atorvastatin calcium AdvReac Nausea Verified 09/28/20 11:47 [From Lipitor] celecoxib [From Celebrex] AdvReac Nausea Verified 09/28/20 11:47 cephalexin [From Keflex] AdvReac thrush Verified 09/28/20 11:47 influenza virus vaccine, AdvReac Nausea & Verified 09/28/20 11:47 specific Vomiting & [influenza virus Diarrhea,high vacc,specific] fever Surgical - Exam Vital Signs Temp Pulse Resp Pulse Ox 99.1 F 63 22 95 09/28/20 07:17 09/28/20 07:17 09/28/20 07:17 09/28/20 07:17 Results - Labs 10/10/20 11:14 10/10/20 11:14 Abnormal Lab Results - Last 24 Hours (Table) 10/08/20 10/09/20 10/09/20 Range/Units 11:56 05:40 05:40 Lymphocytes # 0.6 L (1.0-4.8) k/uL Lactate Dehydrogenase 1354 H (313-618) U/L C-Reactive Protein (<10.0) mg/L Procalcitonin 0.31 H (0.02-0.09) ng/mL 10/09/20 Range/Units 05:40 Lymphocytes # (1.0-4.8) k/uL Lactate Dehydrogenase (313-618) U/L C-Reactive Protein 199.2 H (<10.0) mg/L Procalcitonin (0.02-0.09) ng/mL Microbiology - Last 24 Hours (Table) 10/03/20 09:15 Blood Culture - Final Blood No Growth after 144 hours <Kailyn Pineda - Last Filed: 10/11/20 12:58> History of Present Illness History of present illness: Patient seen and evaluated. Please see additional documentation below. CHIEF COMPLAINT: Evaluation of small bowel obstruction HISTORY OF PRESENT ILLNESS: The patient is a 85 year old female well-known to me with prior history of lymphoma including breast cancer, chronic constipation, me lanoma. Per discussion with her , patient was brought into the hospital almost 2 weeks ago. She was recently diagnosed with Covid. She had troubles with breathing. She was admitted as a result. During her hospitalization, patient noted to have abdominal pain ongoing for 2 days. Diagnostic studies including abdominal x-rays demonstrated possible bowel obstruction. Gen. surgery was consulted. No reports of blood in stools. Patient since admission has had progressive decline in her mentation including respiratory status. PAST MEDICAL HISTORY: See list and reviewed including active chemotherapy regimen for lymphoma, past breast cancer, passed melanoma, chronic acute fibrillation PAST SURGICAL HISTORY: See list and reviewed past including port-a-cath placement for chemotherapy, mastectomy, MEDICATIONS: See list and reviewed including anticoagulant Eliquis ALLERGIES: See list and reviewed including iodinated contrast SOCIAL HISTORY: See list and reviewed without active tobacco abuse FAMILY HISTORY: See list and reviewed with multiple cancers in family members REVIEW OF ORGAN SYSTEMS: CONSTITUTIONAL: No fevers or chills. EYES: Denies any trouble with vision. Wears glasses. HEENT: No difficulties with hearing. No nosebleeds. Has difficulty swallowing. RESPIRATORY: Has pneumonia. Has troubles with breathing or dyspnea on exertion. CARDIOVASCULAR: Has atrial fibrillation. On anticoagulation. GASTROINTESTINAL: History of chronic constipation with diverticulosis. Last colonoscopy less than 5 years ago. GENITOURINARY: Denies any blood in urine or increased urinary frequency. NEUROLOGICAL: Denies any numbness or tingling along the distal extremities. MUSCULOSKELETAL: Has back pain, stiffness or joint arthritis. SKIN: No current skin cancer. No rash. PSYCHIATRIC: Denies current depression or suicidal thoughts. ENDOCRINE: Has hypothyroidism. Denies any blood sugar glucose intolerance. HEME/LYMPHATIC: Has lymphoma.. No current DVTs. ALLERGY/IMMUNOLOGY: Under active chemotherapy. BREAST: Past breast cancer. PHYSICAL EXAM: VITALS: Reviewed CONSTITUTIONAL: Well developed and in no acute distress. EYES: Conjuctivae without sclera icterus. Pupils are equally round and reactive to light. Extraocular movements grossly intact. HEAD, EARS, NOSE, THROAT: Dry buccal mucosa. Head is atraumatic, normocephalic. No nasal drainage. NECK: No JV distention. No thyroidomegaly. RESPIRATORY: Non-labored respirations and equal bilateral excursions. No gross wheezes. CARDIOVASCULAR: Irregular rate and irregular rhythm. Palpable 2+ radial pulses. ABDOMEN: No peritonitis. Nondistended. MUSCULOSKELETAL: Nail and fingers with poor capillary refill. SKIN: Cool and poorly perfused NEUROLOGIC: Lethargic with no focal or lateralizing signs. PSYCH: Appropriate affect. Alert and oriented to person, place and time. Displays appropriate insight. CLINCAL LABS: Reviewed. WBC elevated from 6.8-19.4. Sodium low 130. Covid positive IMAGING: Ultrasound of the abdomen reviewed with absent gallbladder. No intraductal dilation. This my independent interpretation. CT of the abdomen and pelvis independent reviewed demonstrating no bowel obstruction. No free air. No perforated diverticulitis. Additionally incisional hernia identified along the epigastrium 2. This my independent interpretation. RADIOLOGY: Report reviewed abdominal x-ray with ileus however distal small bowel obstruction cannot be excluded. CT of chest abdomen and pelvis report demonstrates aortic aneurysm. Bilateral pleural effusions with infiltrates. ASSESSMENT: 1. Covid positive pneumonia 2. Lymphoma undergoing active chemotherapy 3. Atrial fibrillation anticoagulated 4. History of chronic constipation with ileus PLAN: 1. No surgical intervention advised. Recommend correction of hyponatremia with ileus. 2. Diet as tolerated 3. Overall, patient presents with poor prognosis with active chemo management with Covid positive and pneumonia. Thank you for this kind consultation. Surgical - Exam Vital Signs Temp Pulse Resp Pulse Ox 99.1 F 63 22 95 09/28/20 07:17 09/28/20 07:17 09/28/20 07:17 09/28/20 07:17 Results - Labs 10/10/20 11:14 10/10/20 11:14 Abnormal Lab Results - Last 24 Hours (Table) 10/10/20 Range/Units 13:25 ABG pH 7.48 H (7.35-7.45) ABG pO2 72 L (83-108) mmHg ABG HCO3 32 H (21-25) mmol/L ABG Total CO2 33 H (19-24) mmol/L Microbiology - Last 24 Hours (Table) 10/08/20 09:46 Stool Culture - Preliminary Stool Assessment and Plan (1) Acute respiratory insufficiency Current Visit: Yes Status: Acute Code(s): R06.89 - OTHER ABNORMALITIES OF BREATHING SNOMED Code(s): 885441037 (2) COVID-19 Current Visit: Yes Status: Acute Priority: High Code(s): U07.1 - COVID-19 SNOMED Code(s): 735329760 (3) Trachea, stenosis Current Visit: Yes Status: Acute Code(s): J39.8 - OTHER SPECIFIED DISEASES OF UPPER RESPIRATORY TRACT SNOMED Code(s): 16727421 (4) High grade malignant lymphoma Current Visit: No Status: Acute Priority: High Code(s): C85.90 - NON- HODGKIN LYMPHOMA, UNSPECIFIED, UNSPECIFIED SITE SNOMED Code(s): 368067533 (5) Ileus Current Visit: No Status: Acute Code(s): K56.7 - ILEUS, UNSPECIFIED SNOMED Code(s): 640023085
[2020-10-10 11:58] LABS: Albumin 3.3 g/dL (3.5-5.0); Calcium 8.9 mg/dL (8.4-10.2); Magnesium 2.1 mg/dL (1.6-2.3); Potassium 4.4 mmol/L (3.5-5.1); Total Bilirubin 0.8 mg/dL (0.2-1.3); Total Protein 6.2 g/dL (6.3-8.2)
[2020-10-10 12:05] LABS: Glucose,Whole Blood 113 mg/dL (75-99)
[2020-10-10 12:05] LABS: Basophils % (A) 0 %; Eosinophils % (A) 0 %; HGB 15.3 gm/dL (11.4-16.0); Lymphocytes # (A) 0.3 k/uL (1.0-4.8); Lymphocytes % (A) 2 %; MCH 31.2 pg (25.0-35.0); MCHC 34.8 g/dL (31.0-37.0); MCV 89.5 fL (80.0-100.0); Mean Platelet Volume 7.5; Monocytes # (A) 0.4 k/uL (0-1.0); Monocytes % (A) 2 %; Neutrophils # (A) 18.6 k/uL (1.3-7.7); Neutrophils % (A) 96 %; Platelet Count 230 k/uL (150-450); RBC 4.92 m/uL (3.80-5.40); RDW 12.3 % (11.5-15.5); WBC 19.4 k/uL (3.8-10.6)
[2020-10-10 13:35] LABS: ABG Base Excess 8.4 mmol/L; ABG HCO3 32 mmol/L (21-25); ABG Oxygen Saturation 94.3 % (94-97); ABG PCO2 43 mmHg (35-45); ABG PH 7.48 (7.35-7.45); ABG PO2 72 mmHg (83-108); ABG TCO2 33 mmol/L (19-24); Allen Test Performed? Yes
[2020-10-10 15:50] VITALS: BP 133/62; TEMP 97.6
--- NOTE | 2020-10-10 16:33 | P.PN ---
Subjective Progress Note Date: 10/10/20 Principal diagnosis: CoVID 19 pneumonia This is an 85-year-old female patient with a history of atrial fibrillation, COPD, lymphoma on active chemotherapy, hypothyroidism, hearing disorder, hyperlipidemia, right breast cancer, melanoma former smoker. She had presented to the emergency room back on 09/28/2020. We're consulted today for a chest x- ray showing possible pleural effusion. Computed tomography scan of the chest revealed bilateral patchy pneumonia with pleural effusions and basilar infiltrate and atelectasis. She is seen today on the regular medical floor. Currently sitting up in a chair at the bedside. Maintaining O2 saturation low 90s on 4 L/m per nasal cannula. She's afebrile. Sputum culture pending. Blood culture reveals no growth to date. White count 4.1. Hemoglobin 14.7. Sodium 134. Creatinine 0.90. Troponin is negative x 2. ProBNP 5330. She is initiated on Lasix 20 mg IV every 12 hours. Anticoagulated with Eliquis. Remains on vitamin supplements, dexamethasone. He has been initiated on Remdesivir. This is day number #4. The patient is seen today 10/05/2020 in follow-up on the regular medical floor. She is awake and alert in no acute distress. Still feeling quite weak and fatigued. Short of breath with exertion. She completed Remdesivir today. She remains on 4 L high flow nasal cannula to maintain O2 saturations in the 90s. Sputum culture revealed no growth. Blood cultures revealed no growth. White count 4.8. Hemoglobin 13.4. Sodium 134. Potassium 4.0. Creatinine 0.9. Remains on Decadron, Eliquis, vitamin supplements. Continued on IV diuretics. Progress note dated 10/06/2020. 5-year-old female, with a history of multiple medical problems including acute hypoxemic respiratory failure secondary to COVID 19 pneumonia, diastolic CHF, paroxysmal atrial fibrillation, hypertension, hyperlipidemia, lymphoma, hypothyroidism, hyperlipidemia, deafness, hypothyroidism, breast cancer, melanoma, and bowel resection. The patient states that she is feeling a bit better. She looks quite weak. She's on 4 L nasal cannula. Her saturations are reasonable. She's getting saline at 20 mL an hour. She apparently did have a significant coughing spell last night. Overall though, she does feel improved. She did complete REM. White count 7.02, hemoglobin 13.9, hematocrit 41.1, platelet count 206,000. D-dimer 0.27. I could not view the chest x-ray today, but the report mentions upper lung zone opacities which are unchanged compared to an x-ray done on October 04. Progress note dated 10/07/2020. 85-year-old female, with multiple medical problems including acute hypoxemic respiratory failure secondary to COVID 19 pneumonia, diastolic CHF, paroxysmal atrial fibrillation, hypertension, hyperlipidemia, lymphoma, hypothyroidism, hyperlipidemia, deafness, hypothyroidism, breast cancer, melanoma, and bowel resection. Currently, the patient is on a nonrebreather mask, and 15 L high flow nasal O2. She's receiving saline at 75 mL an hour. Her saturations are 98%. She does not appear to be in any respiratory distress or difficulty. There is no conversational dyspnea or use of accessory muscles. Labs today include a sodium 134, potassium 4.2, chloride 93, CO2 31, anion gap 10, BUN 24, and creatinine 1.17. LDH is 1283. The C-reactive protein is 71. Pro- calcitonin level from yesterday was 0.16. Chest x-ray show some mild worsening of her bilateral patchy infiltrates. Patient was reevaluated today on 10/08/2020, patient continues to do poorly, she has no symptoms of diarrhea mostly. Continues to have shortness of breath with any activity. She is on 6 L nasal cannula and her O2 saturation is 92%. LDH is 1283 CRP is 70. Pro-calcitonin was 0.16. Chest x-ray yesterday 10/07/2020 showed slight worsening of her bilateral airspace opacities. Her sodium is trending down and is 129 today. Patient was on diuretics. And she is also having intermittent diarrhea. Patient did receive REM, she is on dexamethasone, and she received Gammagard. Given by oncology. Patient was reevaluated today on 10/09/2020, seems to be getting worse today, patient is on high FiO2. She is now on 90% and 60 L high flow cannula/airvo, patient continues to have marginal saturations in the 80s. Clinically however she doesn't seem to be bothered with her shortness of breath as much as she is bothered with abdominal pain which is across her abdomen but on physical examination her abdomen does not seem to be surgical, it is soft, nontender, no megaly, no rebound, and no guarding. Her admitting physician is handling her abdominal pain. And she would likely benefit from Dilaudid or some other narcotic for pain control considering the worsening of her pulmonary status and requirement for more FiO2, I went ahead and recommended actemra, I also discussed her condition with the infectious disease physician on the case. Earlier ABG on 6 L showed a pO2 of 43 pCO2 of 34 pH of 7.54 hence the patient wa s placed on a high flow oxygen. WBC count is 6.8 hemoglobin is 14.1. Screening for C. difficile toxin was negative yesterday as the patient had diarrhea. Last LDH 2 days ago was 1283 and C-reactive protein was 71. Chest x-ray today is showing worsening interstitial infiltrates/edema I will recommend a dose of Lasix today. The patient is seen today 10/10/2020 in follow-up on the selective care unit. She is currently on BiPAP 12/5 in 100% FiO2 to maintain O2 saturations in the 90s. Arterial blood gases revealed a pO2 of 72, pCO2 43, pH 7.48. Lungs sounds still quite rhonchorous. Chest x-ray reveals patchy bilateral infiltrates. Stable compared to previous. No IV fluids. Sputum, blood and stool cultures reveal no growth. White count 19.4. Hemoglobin 15.3. Sodium 1:30. Potassium 4.4. Creatinine 1.27. Glucose 113. She continues on dexamethasone, Eliquis, vitamin supplements. Objective - Vital Signs Vital signs: Vital Signs Temp 97.6 F 10/10/20 15:42 Pulse 63 10/10/20 15:42 Resp 21 10/10/20 15:42 BP 133/62 10/10/20 15:42 Pulse Ox 97 10/10/20 15:42 Intake & Output 10/09/20 10/10/20 10/10/20 18:59 06:59 18:59 Intake Total 100 0 Output Total 1 1601 Balance 99 -1601 0 Weight 62.5 kg Intake: Intake, IV Titration 100 Amount Tocilizumab 560 mg In 100 Sodium Chloride 0.9% 72 ml @ 100 mls/hr IV ONCE ONE Rx#:[id number] Oral 0 Output: Urine 1 601 Uretheral (Fernández) 600 Stool 1000 Other: Voiding Method Toilet Indwelling Catheter Indwelling Catheter # Voids 1 - Exam GENERAL EXAM: Alert, frail, 85-year-old female patient, on BiPAP 12/5 in 100% FiO2, and mild respiratory distress. HEAD: Normocephalic. EYES: Normal reaction of pupils, equal size. NOSE: Clear with pink turbinates. THROAT: No erythema or exudates. NECK: No masses, no JVD. CHEST: No chest wall deformity. LUNGS: Equal air entry with with crackles in the bilateral bases with bilateral scattered rhonchi. CVS: S1 and S2 normal with no audible murmur, irregular rhythm. ABDOMEN: No hepatosplenomegaly, normal bowel sounds, no guarding or rigidity. SPINE: No scoliosis or deformity SKIN: No rashes CENTRAL NERVOUS SYSTEM: No focal deficits, tone is normal in all 4 extremities. EXTREMITIES: There is no peripheral edema. No clubbing, no cyanosis. Peripheral pulses are intact. - Labs CBC & Chem 7: 10/10/20 11:14 10/10/20 11:14 Labs: Abnormal Lab Results - Last 24 Hours (Table) 10/09/20 10/10/20 10/10/20 Range/Units 05:40 11:14 11:14 WBC 19.4 H (3.8-10.6) k/uL Neutrophils # 18.6 H (1.3-7.7) k/uL Lymphocytes # 0.3 L (1.0-4.8) k/uL ABG pH (7.35-7.45) ABG pO2 (83-108) mmHg ABG HCO3 (21-25) mmol/L ABG Total CO2 (19-24) mmol/L Sodium 130 L (137-145) mmol/L Chloride 90 L (98-107) mmol/L Carbon Dioxide 31 H (22-30) mmol/L BUN 50 H (7-17) mg/dL Creatinine 1.27 H (0.52-1.04) mg/dL Glucose 113 H (74-99) mg/dL POC Glucose (mg/dL) (75-99) mg/dL AST 73 H (14-36) U/L ALT 37 H (4-34) U/L Total Protein 6.2 L (6.3-8.2) g/dL Albumin 3.3 L (3.5-5.0) g/dL Procalcitonin 0.31 H (0.02-0.09) ng/mL 10/10/20 10/10/20 Range/Units 12:03 13:25 WBC (3.8-10.6) k/uL Neutrophils # (1.3-7.7) k/uL Lymphocytes # (1.0-4.8) k/uL ABG pH 7.48 H (7.35-7.45) ABG pO2 72 L (83-108) mmHg ABG HCO3 32 H (21-25) mmol/L ABG Total CO2 33 H (19-24) mmol/L Sodium (137-145) mmol/L Chloride (98-107) mmol/L Carbon Dioxide (22-30) mmol/L BUN (7-17) mg/dL Creatinine (0.52-1.04) mg/dL Glucose (74-99) mg/dL POC Glucose (mg/dL) 113 H (75-99) mg/dL AST (14-36) U/L ALT (4-34) U/L Total Protein (6.3-8.2) g/dL Albumin (3.5-5.0) g/dL Procalcitonin (0.02-0.09) ng/mL Assessment and Plan Assessment: 1 Acute hypoxemic respiratory failure secondary to CoVID 19 pneumonia, acute exacerbation of diastolic congestive heart failure 2 Paroxysmal atrial fibrillation anticoagulated with Eliquis 3 Hypertension 4 Hyperlipidemia 5 lymphoma with active chemotherapy 6 Hypothyroidism 7 Hyperlipidemia 8 Hearing disorder 9 Hypothyroidism 10 History of breast cancer 11 History of melanoma 12 Previous bowel resection 13 Poor overall functional performance based on the above-mentioned multiple comorbidities Plan: The patient was seen and evaluated by Dr. Hahn Currently on BiPAP 12/5 in 100% FiO2 Completed Remdesivir Continue Decadron, vitamin supplements Anticoagulated with Eliquis Prognosis remains guarded We will continue to follow and make further recommendations based on her clinical status I, the cosigning physician, performed a history & physical examination of the patient. Lungs sounds crackles in the bilateral posterior bases scattered rhonchi. Maintaining O2 saturations in the 90s on BiPAP 12/5 in the 100% FiO2. I discussed the assessment and plan of care with my nurse practitioner, Aleshia Mancilla. I attest to the above note as dictated by her.
[2020-10-10] MEDS ORDERED: GLYCOPYRROLATE 0.2 MG/ML 2 ML VIAL IVP PRN (17:32)
[2020-10-10] MEDS ORDERED: DRY MOUTH SPRAY 44.3 SPRAY/44.3 ML SPRAY MUCOUS MEM PRN (17:32)
[2020-10-10] MEDS ORDERED: ARTIFICIAL TEARS-HYPROMELLOSE DROPS 15 ML BTL BOTH EYES PRN (17:32)
[2020-10-10] MEDS ORDERED: LORazepam 2 MG/ML INJ IV PRN (17:32)
[2020-10-10] MEDS ORDERED: HALOPERIDOL LACTATE 5 MG/ML 1 ML VIAL IM PRN (17:32)
[2020-10-10] MEDS ORDERED: ZOLPIDEM 5 MG TAB PO PRN (17:32)
[2020-10-10] MEDS ORDERED: HYDROCORTISONE 1% CREAM 30 GM TUBE TOPICAL PRN (17:32)
[2020-10-10] MEDS ORDERED: guaiFENesin-Coden 100-10MG/5ML 10 ML CUP PO PRN (17:32)
[2020-10-10] MEDS ORDERED: MORPHINE SULFATE 2 MG/ML SYRINGE IVP STA (17:55)
[2020-10-10] MEDS ORDERED: SCOPOLAMINE 1.5MG/72HR PATCH TRANSDERM SCH (18:00)
--- NOTE | 2020-10-10 18:03 | P.PN ---
Progress Note - Text Progress Note Date: 10/10/20 After lengthy discussion with patient and regarding patient's clinical status and predicted outcome, patient and wishes are to withdraw care and initiate comfort care. Patient has been placed on comfort care and no resuscitation or heroic measures will be made. Comfort Care measures in place
[2020-10-10] MEDS: MORPHINE SULFATE (100 MG/2 ML) 100 MG in SODIUM CHLORIDE 0.9% 100 ML IV SCH (18:06)
[2020-10-10] MEDS: DOCUSATE 100 MG CAP PO SCH (20:34)
[2020-10-10 20:37] VITALS: RESP 24
--- NOTE | 2020-10-10 22:27 | PN ---
PROGRESS NOTE DATE OF SERVICE: 10/10/2020 REASON FOR FOLLOWUP: Pneumonia. INTERVAL HISTORY: The patient remains afebrile. The patient is on BiPAP. The patient denies having any chest pain. Occasional cough. No abdominal pain or diarrhea. PHYSICAL EXAMINATION: Blood pressure 133/62 with a pulse of 63, temperature 97.6. She is 97% on BiPAP. General description is an elderly female lying in bed in no distress. RESPIRATORY SYSTEM: Unlabored breathing with decreased intensity of breath sounds. No wheeze. HEART: S1, S2. Regular rate and rhythm. ABDOMEN: Soft. No tenderness. LABS: Hemoglobin 15.3, white count 19.4, BUN of 50, creatinine is 1.27. CRP is 119. Procalcitonin is 0.31. DIAGNOSTIC IMPRESSION AND PLAN: Patient with acute respiratory failure secondary to COVID-19 infection in this patient who has completed her remdesivir therapy and also received a dose of Actemra. Clinical suspicion low for secondary bacterial pneumonia. The procalcitonin is very mildly elevated at 0.31. The patient is currently covered with supportive treatment. Monitor clinical course closely. MMODL / IJN: [id number] /
--- NOTE | 2020-10-11 08:51 | P.PN ---
Subjective Progress Note Date: 10/11/20 Principal diagnosis: Acute hypoxic failure secondary to covid 19 pneumonia and acute diastolic congestive heart failure 85-year-old female was admitted to the hospital with significant medical history of atrial fibrillation, COPD, lymphoma on active chemotherapy, hypothyroidism, hearing disorder, hyperlipidemia, right breast cancer, melanoma and a former smoker. Patient was admitted to the hospital with covid- 19 pneumonia. Upon evaluation this a.m., patient had mild respiratory distress with oxygen saturations 82-86% on 6-10 L of high flowarterial blood gas was obtainedairflow 60 L with oxygen saturation in the 90%. Awaiting on pulmonary critical care for recommendations for possibly actemra. Due to patient's discomfort of the abdomen ordered abdominal series x-ray, and provided low dose of analgesics. chest x-ray shows worsening interstitial infil trates/edemaawaiting on critical care for recommendations with possible loop diuretic. October Evaluated 85-year-old female, on the selective care unit this a.m. Upon night rounds last night patient oxygen saturation was not able to contain oxygen greater than 85% with high flow oxygen, patient was placed on BiPAP of settings 12/5, with the FOI2 of 90 to 100%. Patient was having intermittent nausea additional Compazine and reglan was added as needed for nausea sensation. Abdominal x-ray reviewed possible bowel obstruction consulted surgery to look at films and make clinical judgment. Patient has guarded prognosis at this time. 10/10/2020 Evaluated 85-year-old female the selective care unit this a.m. after lengthy discussion last night with family and patient patient Ray requesting to withdraw measures and to be placed on comfort care and patient was started and initiated on a morphine drip and comfort care measures. Evaluated patient this a.m. patient nonresponsive and heart rate in the 220s. Plain to significant other the patient will be comfortable and progression of covid 19. Continue comfort care measures and consult with hospice care Objective - Vital Signs Vital signs: Vital Signs Temp 97.6 F 10/10/20 15:42 Pulse 63 10/10/20 15:42 Resp 24 10/11/20 03:00 BP 133/62 10/10/20 15:42 Pulse Ox 97 10/10/20 15:42 Intake & Output 10/10/20 10/11/20 10/11/20 18:59 06:59 18:59 Intake Total 0 28.560 Output Total 200 Balance -200 28.560 Intake: Intake, IV Titration 28.560 Amount Morphine Sulfate (100 mg/ 28.560 2 ml) 100 mg In Sodium Chloride 0.9% 100 ml @ 1 MG/HR 1.02 mls/hr IV . Q[facility]H [facility] Rx#:[id number] Oral 0 Output: Urine 200 Other: Voiding Method Indwelling Catheter - Constitutional Constitutional Comment(s): Unresponsive - EENT Ears: left: normal - Neck Carotids: bilateral: upstroke normal Thyroid: bilateral: normal size - Respiratory Respiratory: bilateral: rhonchi (Anterior and posterior lung michelle) - Cardiovascular Heart rate: 220 Heart sounds: normal: S1, S2 - Integumentary Integumentary: Present: decreased turgor, pale - Allied health notes Allied health notes reviewed: nursing - Labs CBC & Chem 7: 10/10/20 11:14 10/10/20 11:14 Labs: Abnormal Lab Results - Last 24 Hours (Table) 10/10/20 10/10/20 10/10/20 Range/Units 11:14 11:14 12:03 WBC 19.4 H (3.8-10.6) k/uL Neutrophils # 18.6 H (1.3-7.7) k/uL Lymphocytes # 0.3 L (1.0-4.8) k/uL ABG pH (7.35-7.45) ABG pO2 (83-108) mmHg ABG HCO3 (21-25) mmol/L ABG Total CO2 (19-24) mmol/L Sodium 130 L (137-145) mmol/L Chloride 90 L (98-107) mmol/L Carbon Dioxide 31 H (22-30) mmol/L BUN 50 H (7-17) mg/dL Creatinine 1.27 H (0.52-1.04) mg/dL Glucose 113 H (74-99) mg/dL POC Glucose (mg/dL) 113 H (75-99) mg/dL AST 73 H (14-36) U/L ALT 37 H (4-34) U/L Total Protein 6.2 L (6.3-8.2) g/dL Albumin 3.3 L (3.5-5.0) g/dL 10/10/20 Range/Units 13:25 WBC (3.8-10.6) k/uL Neutrophils # (1.3-7.7) k/uL Lymphocytes # (1.0-4.8) k/uL ABG pH 7.48 H (7.35-7.45) ABG pO2 72 L (83-108) mmHg ABG HCO3 32 H (21-25) mmol/L ABG Total CO2 33 H (19-24) mmol/L Sodium (137-145) mmol/L Chloride (98-107) mmol/L Carbon Dioxide (22-30) mmol/L BUN (7-17) mg/dL Creatinine (0.52-1.04) mg/dL Glucose (74-99) mg/dL POC Glucose (mg/dL) (75-99) mg/dL AST (14-36) U/L ALT (4-34) U/L Total Protein (6.3-8.2) g/dL Albumin (3.5-5.0) g/dL Microbiology - Last 24 Hours (Table) 10/08/20 09:46 Stool Culture - Preliminary Stool Assessment and Plan Assessment: Acute hypoxic respiratory failure second to covid-19 pneumonia Acute diastolic congestive heart failure History of lymphoma on chemotherapy currently Paroxysmal atrial fibrillation Hypothyroidism Hypertension Previous bowel resection History of melanoma Plan: Coven 19 pneumonia with hypoxic respiratory failurecontinue consultation and recommendations from pulmonary critical care Acute diastolic heart failure Initiated comfort care measures last night for poor outcomes and request from patient and family Continue comfort care measures Time with Patient: Greater than 30
[2020-10-11] MEDS: MORPHINE SULFATE (100 MG/2 ML) 100 MG in SODIUM CHLORIDE 0.9% 100 ML IV SCH ×2 (09:09→12:19)
[2020-10-11] MEDS: DOCUSATE 100 MG CAP PO SCH (11:06)
[2020-10-11] MEDS: METOPROLOL TARTRATE 50 MG TAB PO SCH (11:06)
[2020-10-11] MEDS: SENNOSIDES 8.6 MG TAB PO SCH (11:06)
[2020-10-11 11:15] VITALS: PULSE 195
--- NOTE | 2020-10-11 11:20 | P.PN ---
Subjective Progress Note Date: 10/11/20 CHIEF COMPLAINT: Ileus HISTORY OF PRESENT ILLNESS: The patient is a 85 year old female well-known to me with lymphoma including prior history of breast cancer, chronic constipation, melanoma. She was admitted with Covid pneumonia including troubles breathing. She has been in the hospital for 2 weeks with progressive decline. General surgery is asked to see her regarding bowel obstruction versus ileus. Her is at bedside. At this time, family has elected for hospice. Patient is currently on a morphine drip. REVIEW OF ORGAN SYSTEMS: Patient lethargic on morphine drip. Lethargic. PHYSICAL EXAM: VITALS: Reviewed CONSTITUTIONAL: Well developed and in no acute distress. EYES: Conjuctivae without sclera icterus. Pupils are equally round and reactive to light. Extraocular movements grossly intact. HEAD, EARS, NOSE, THROAT: Dry buccal mucosa. Head is atraumatic, normocephalic. No nasal drainage. RESPIRATORY: Agonal breathing. CARDIOVASCULAR: Irregular rate and irregular rhythm. Palpable 2+ radial pulses. ABDOMEN: No peritonitis. Nondistended. MUSCULOSKELETAL: Nail and fingers with poor capillary refill. SKIN: Poorly perfused. NEUROLOGIC: Lethargic with no focal or lateralizing signs. PSYCH: Appropriate affect. Alert and oriented to person, place and time. Displays appropriate insight. CLINCAL LABS: No new labs. ASSESSMENT: 1. Covid positive pneumonia 2. Lymphoma undergoing active chemotherapy 3. Atrial fibrillation anticoagulated 4. History of chronic constipation with ileus PLAN: 1. Agree with overall poor prognosis and hospice. Objective - Vital Signs Vital signs: Vital Signs Temp 97.6 F 10/10/20 15:42 Pulse 195 H 10/11/20 08:00 Resp 24 10/11/20 03:00 BP 133/62 10/10/20 15:42 Pulse Ox 97 10/10/20 15:42 Intake & Output 10/10/20 10/11/20 10/11/20 18:59 06:59 18:59 Intake Total 0 28.560 37.536 Output Total 200 Balance -200 28.560 37.536 Intake: Intake, IV Titration 28.560 37.536 Amount Morphine Sulfate (100 mg/ 28.560 37.536 2 ml) 100 mg In Sodium Chloride 0.9% 100 ml @ 1 MG/HR 1.02 mls/hr IV . Q24H [facility] Rx#:[id number] Oral 0 Output: Urine 200 Other: Voiding Method Indwelling Catheter - Labs CBC & Chem 7: 10/10/20 11:14 10/10/20 11:14 Labs: Abnormal Lab Results - Last 24 Hours (Table) 10/10/20 10/10/20 10/10/20 Range/Units 11:14 11:14 12:03 WBC 19.4 H (3.8-10.6) k/uL Neutrophils # 18.6 H (1.3-7.7) k/uL Lymphocytes # 0.3 L (1.0-4.8) k/uL ABG pH (7.35-7.45) ABG pO2 (83-108) mmHg ABG HCO3 (21-25) mmol/L ABG Total CO2 (19-24) mmol/L Sodium 130 L (137-145) mmol/L Chloride 90 L (98-107) mmol/L Carbon Dioxide 31 H (22-30) mmol/L BUN 50 H (7-17) mg/dL Creatinine 1.27 H (0.52-1.04) mg/dL Glucose 113 H (74-99) mg/dL POC Glucose (mg/dL) 113 H (75-99) mg/dL AST 73 H (14-36) U/L ALT 37 H (4-34) U/L Total Protein 6.2 L (6.3-8.2) g/dL Albumin 3.3 L (3.5-5.0) g/dL 10/10/20 Range/Units 13:25 WBC (3.8-10.6) k/uL Neutrophils # (1.3-7.7) k/uL Lymphocytes # (1.0-4.8) k/uL ABG pH 7.48 H (7.35-7.45) ABG pO2 72 L (83-108) mmHg ABG HCO3 32 H (21-25) mmol/L ABG Total CO2 33 H (19-24) mmol/L Sodium (137-145) mmol/L Chloride (98-107) mmol/L Carbon Dioxide (22-30) mmol/L BUN (7-17) mg/dL Creatinine (0.52-1.04) mg/dL Glucose (74-99) mg/dL POC Glucose (mg/dL) (75-99) mg/dL AST (14-36) U/L ALT (4-34) U/L Total Protein (6.3-8.2) g/dL Albumin (3.5-5.0) g/dL Microbiology - Last 24 Hours (Table) 10/08/20 09:46 Stool Culture - Preliminary Stool
--- NOTE | 2020-10-11 12:54 | P.PN ---
Subjective Progress Note Date: 10/11/20 Principal diagnosis: CoVID 19 pneumonia This is an 85-year-old female patient with a history of atrial fibrillation, COPD, lymphoma on active chemotherapy, hypothyroidism, hearing disorder, hyperlipidemia, right breast cancer, melanoma former smoker. She had presented to the emergency room back on 09/28/2020. We're consulted today for a chest x- ray showing possible pleural effusion. Computed tomography scan of the chest revealed bilateral patchy pneumonia with pleural effusions and basilar infiltrate and atelectasis. She is seen today on the regular medical floor. Currently sitting up in a chair at the bedside. Maintaining O2 saturation low 90s on 4 L/m per nasal cannula. She's afebrile. Sputum culture pending. Blood culture reveals no growth to date. White count 4.1. Hemoglobin 14.7. Sodium 134. Creatinine 0.90. Troponin is negative x 2. ProBNP 5330. She is initiated on Lasix 20 mg IV every 12 hours. Anticoagulated with Eliquis. Remains on vitamin supplements, dexamethasone. He has been initiated on Remdesivir. This is day number #4. The patient is seen today 10/05/2020 in follow-up on the regular medical floor. She is awake and alert in no acute distress. Still feeling quite weak and fatigued. Short of breath with exertion. She completed Remdesivir today. She remains on 4 L high flow nasal cannula to maintain O2 saturations in the 90s. Sputum culture revealed no growth. Blood cultures revealed no growth. White count 4.8. Hemoglobin 13.4. Sodium 134. Potassium 4.0. Creatinine 0.9. Remains on Decadron, Eliquis, vitamin supplements. Continued on IV diuretics. Progress note dated 10/06/2020. 5-year-old female, with a history of multiple medical problems including acute hypoxemic respiratory failure secondary to COVID 19 pneumonia, diastolic CHF, paroxysmal atrial fibrillation, hypertension, hyperlipidemia, lymphoma, hypothyroidism, hyperlipidemia, deafness, hypothyroidism, breast cancer, melanoma, and bowel resection. The patient states that she is feeling a bit better. She looks quite weak. She's on 4 L nasal cannula. Her saturations are reasonable. She's getting saline at 20 mL an hour. She apparently did have a significant coughing spell last night. Overall though, she does feel improved. She did complete REM. White count 7.02, hemoglobin 13.9, hematocrit 41.1, platelet count 206,000. D-dimer 0.27. I could not view the chest x-ray today, but the report mentions upper lung zone opacities which are unchanged compared to an x-ray done on October 04. Progress note dated 10/07/2020. 85-year-old female, with multiple medical problems including acute hypoxemic respiratory failure secondary to COVID 19 pneumonia, diastolic CHF, paroxysmal atrial fibrillation, hypertension, hyperlipidemia, lymphoma, hypothyroidism, hyperlipidemia, deafness, hypothyroidism, breast cancer, melanoma, and bowel resection. Currently, the patient is on a nonrebreather mask, and 15 L high flow nasal O2. She's receiving saline at 75 mL an hour. Her saturations are 98%. She does not appear to be in any respiratory distress or difficulty. There is no conversational dyspnea or use of accessory muscles. Labs today include a sodium 134, potassium 4.2, chloride 93, CO2 31, anion gap 10, BUN 24, and creatinine 1.17. LDH is 1283. The C-reactive protein is 71. Pro- calcitonin level from yesterday was 0.16. Chest x-ray show some mild worsening of her bilateral patchy infiltrates. Patient was reevaluated today on 10/08/2020, patient continues to do poorly, she has no symptoms of diarrhea mostly. Continues to have shortness of breath with any activity. She is on 6 L nasal cannula and her O2 saturation is 92%. LDH is 1283 CRP is 70. Pro-calcitonin was 0.16. Chest x-ray yesterday 10/07/2020 showed slight worsening of her bilateral airspace opacities. Her sodium is trending down and is 129 today. Patient was on diuretics. And she is also having intermittent diarrhea. Patient did receive REM, she is on dexamethasone, and she received Gammagard. Given by oncology. Patient was reevaluated today on 10/09/2020, seems to be getting worse today, patient is on high FiO2. She is now on 90% and 60 L high flow cannula/airvo, patient continues to have marginal saturations in the 80s. Clinically however she doesn't seem to be bothered with her shortness of breath as much as she is bothered with abdominal pain which is across her abdomen but on physical examination her abdomen does not seem to be surgical, it is soft, nontender, no megaly, no rebound, and no guarding. Her admitting physician is handling her abdominal pain. And she would likely benefit from Dilaudid or some other narcotic for pain control considering the worsening of her pulmonary status and requirement for more FiO2, I went ahead and recommended actemra, I also discussed her condition with the infectious disease physician on the case. Earlier ABG on 6 L showed a pO2 of 43 pCO2 of 34 pH of 7.54 hence the patient wa s placed on a high flow oxygen. WBC count is 6.8 hemoglobin is 14.1. Screening for C. difficile toxin was negative yesterday as the patient had diarrhea. Last LDH 2 days ago was 1283 and C-reactive protein was 71. Chest x-ray today is showing worsening interstitial infiltrates/edema I will recommend a dose of Lasix today. The patient is seen today 10/10/2020 in follow-up on the selective care unit. She is currently on BiPAP 12/5 in 100% FiO2 to maintain O2 saturations in the 90s. Arterial blood gases revealed a pO2 of 72, pCO2 43, pH 7.48. Lungs sounds still quite rhonchorous. Chest x-ray reveals patchy bilateral infiltrates. Stable compared to previous. No IV fluids. Sputum, blood and stool cultures reveal no growth. White count 19.4. Hemoglobin 15.3. Sodium 1:30. Potassium 4.4. Creatinine 1.27. Glucose 113. She continues on dexamethasone, Eliquis, vitamin supplements. Patient seen today 10/21/2020 in follow-up on the selective care unit. She is resting fairly comfortably in bed, currently on 6 L high flow nasal cannula and maintaining O2 saturation in the 90s. Sputum and blood cultures revealed no growth. Stool culture revealed no growth. She has been slow to progress. She will be placed in [facility] hospice. Currently on a morphine drip. Her i s at the bedside. Objective - Vital Signs Vital signs: Vital Signs Temp 97.6 F 10/10/20 15:42 Pulse 195 H 10/11/20 08:00 Resp 24 10/11/20 03:00 BP 133/62 10/10/20 15:42 Pulse Ox 97 10/10/20 15:42 Intake & Output 10/10/20 10/11/20 10/11/20 18:59 06:59 18:59 Intake Total 0 28.560 . Output Total 200 Balance -200 .560 . Intake: Intake, IV Titration .560 . Amount Morphine Sulfate (100 mg/ . 2 ml) 100 mg In Sodium Chloride 0.9% 100 ml @ 1 MG/HR 1.02 mls/hr IV . Q24H [facility] Rx#:[id number] Oral 0 Output: Urine 200 Other: Voiding Method Indwelling Catheter - Exam GENERAL EXAM: Sedate, frail, 85-year-old female patient, on 6 L nasal cannula, and mild respiratory distress. HEAD: Normocephalic. EYES: Normal reaction of pupils, equal size. NOSE: Clear with pink turbinates. THROAT: No erythema or exudates. NECK: No masses, no JVD. CHEST: No chest wall deformity. LUNGS: Equal air entry with with crackles in the bilateral bases with bilateral scattered rhonchi. CVS: S1 and S2 normal with no audible murmur, irregular rhythm. ABDOMEN: No hepatosplenomegaly, normal bowel sounds, no guarding or rigidity. SPINE: No scoliosis or deformity SKIN: No rashes CENTRAL NERVOUS SYSTEM: No focal deficits, tone is normal in all 4 extremities. EXTREMITIES: There is no peripheral edema. No clubbing, no cyanosis. Peripheral pulses are intact. - Labs CBC & Chem 7: 10/10/20 11:14 10/10/20 11:14 Labs: Abnormal Lab Results - Last 24 Hours (Table) 10/10/20 Range/Units 13:25 ABG pH 7.48 H (7.35-7.45) ABG pO2 72 L (83-108) mmHg ABG HCO3 32 H (21-25) mmol/L ABG Total CO2 33 H (19-24) mmol/L Microbiology - Last 24 Hours (Table) 10/08/20 09:46 Stool Culture - Preliminary Stool Assessment and Plan Assessment: 1 Acute hypoxemic respiratory failure secondary to CoVID 19 pneumonia, acute exacerbation of diastolic congestive heart failure 2 Paroxysmal atrial fibrillation anticoagulated with Eliquis 3 Hypertension 4 Hyperlipidemia 5 lymphoma with active chemotherapy 6 Hypothyroidism 7 Hyperlipidemia 8 Hearing disorder 9 Hypothyroidism 10 History of breast cancer 11 History of melanoma 12 Previous bowel resection 13 Poor overall functional performance based on the above-mentioned multiple comorbidities Plan: The patient was seen and evaluated by Dr. Hahn She has continued to deteriorate at the bedside Placed in hospice/comfort care, and on a morphine drip I, the cosigning physician, performed a history & physical examination of the pa tient. Lungs sounds crackles in the bilateral posterior bases scattered rhonchi. Maintaining O2 saturations in the 90s on 6 L nasal cannula. I discussed the assessment and plan of care with my nurse practitioner, Aleshia Mancilla. I attest to the above note as dictated by her.
--- NOTE | 2020-10-11 18:45 | P.DS ---
Providers Date of admission: 09/29/20 15:29 Expected date of discharge: 10/11/20 () Attending physician: Rob Arias Consults: 09/28/20 10:40 Consult Physician Urgent Consulting Provider: Wilson Kennedy Consult Reason/Comments: lymphoma on active chemo Do you want consulting provider notified?: Yes Consult Physician Urgent Consulting Provider: Merrill Diaz Consult Reason/Comments: acute airway insufficiency, tracheal stenosis, hx lymphoma, covid infection Do you want consulting provider notified?: Yes 09/29/20 21:48 Consult Physician Routine Consulting Provider: Giovana Menendez Consult Reason/Comments: COVID Pneumonia Do you want consulting provider notified?: Yes 10/03/20 10:06 Consult Physician Urgent Consulting Provider: Douglas Daniel Consult Reason/Comments: A-fib w RVR Do you want consulting provider notified?: Yes 10/03/20 17:56 Consult Physician Urgent Consulting Provider: Kalina Salazar Consult Reason/Comments: pleural effusion/ covid Do you want consulting provider notified?: Yes 10/09/20 19:56 Consult Physician Urgent Consulting Provider: Kailyn Pineda Consult Reason/Comments: possible bowel obstruction Do you want consulting provider notified?: Yes Primary care physician: Rob Arias Hospital Course: 85 aqde-uphe-wva female with a significant history of atrial fibrillation, COPD, lymphoma on active chemotherapy, hypothyroidism, hearing disorder, hyperlipidemia, right breast cancer, melanoma, former smoker was admitted to the hospital revealing bilateral patchy pneumonia with pleural effusions and basal area infiltrates and atelectasis. Extensive diagnostic workup in emergency revealed covid-19 pneumonia with elevated inflammatory markers. Patient received Covid 19 cocktail patient was given covid-19 treatment plan. Patient found to have acute exacerbation of diastolic congestive heart failurereceived 1 dose of loop diuretic. During hospital course patient declined with able to maintain oxygen saturations was placed on airflow for support, patient subsequently required BiPAP patient remained lethargic and unable to remove BiPAP with oxygen saturations dropping into the 70s. Had lengthy discussion with and regarding patient's poor prognosis. She was placed on comfort measures, patient on 10/12/2019 07/19/2007. Assessment: Acute hypoxemic systolic failure secondary to covid-19 pneumonia Acute exacerbation of diastolic congestive heart failure Proximal atrial fibrillation anticoagulated with eliquis Hypertension Hyperlipidemia Lymphoma with active chemotherapy Hypothyroidism Hyperlipidemia Hearing disorder History of breast cancer History of melanoma Previous bowel resection Poor overall functional performance based on the above mentioned multiple comorbidities Hospice/comfort care on morphine drip time of 1408 p.m. Health Concerns: None noted Pertinent Studies: Serial chest x-rays CT of soft tissue of neck CT abdomen and pelvis Abdominal ultrasound X-ray of abdomen Procedures: No procedures performed Plan - Discharge Summary Discharge Rx Participant: No New Discharge Prescriptions: New Apixaban [Eliquis] 2.5 mg PO BID 30 Days #60 tablet No Action Acetaminophen [Tylenol Extra Strength] 500 - 1,000 mg PO TID PRN PRN Reason: Fever And/ Or Pain Levothyroxine Sodium [Synthroid] 100 mcg PO DAILY Ubidecarenone [Co Q-10] 300 mg PO DAILY Albuterol Inhaler [Ventolin Hfa Inhaler] 2 puff INHALATION RT-Q4H PRN PRN Reason: Shortness Of Breath Ascorbic Acid [Vitamin C] 1,000 mg PO DAILY [place]-3 Fatty Acids/Fish Oil [Fish Oil 1,000 mg Softgel] 1 cap PO DAILY Cholecalciferol [Vitamin D3 (25 Mcg = 1000 Iu)] 50 mcg PO DAILY Cyanocobalamin (Vitamin B-12) [Vitamin B-12] 1,000 mcg PO DAILY Multivit-Min36/Iron/Folic Acid [Geritol Complete Tablet] 1 tab PO DAILY Albuterol Nebulized [Ventolin Nebulized] 2.5 mg INHALATION RT-QID PRN PRN Reason: Shortness Of Breath Discharge Medication List Acetaminophen [Tylenol Extra Strength] 500 - 1,000 mg PO TID PRN 09/26/18 [History] Levothyroxine Sodium [Synthroid] 100 mcg PO DAILY 08/02/19 [History] Ubidecarenone [Co Q-10] 300 mg PO DAILY 08/25/19 [History] Albuterol Inhaler [Ventolin Hfa Inhaler] 2 puff INHALATION RT-Q4H PRN 12/27/19 [History] Ascorbic Acid [Vitamin C] 1,000 mg PO DAILY 06/02/20 [History] Cholecalciferol [Vitamin D3 (25 Mcg = 1000 Iu)] 50 mcg PO DAILY 06/02/20 [History] Cyanocobalamin (Vitamin B-12) [Vitamin B-12] 1,000 mcg PO DAILY 06/02/20 [History] [place]-3 Fatty Acids/Fish Oil [Fish Oil 1,000 mg Softgel] 1 cap PO DAILY 06/02/20 [History] Albuterol Nebulized [Ventolin Nebulized] 2.5 mg INHALATION RT-QID PRN 09/28/20 [History] Multivit-Min36/Iron/Folic Acid [Geritol Complete Tablet] 1 tab PO DAILY 09/28/20 [History] Apixaban [Eliquis] 2.5 mg PO BID 30 Days #60 tablet 10/04/20 [Rx] Follow up Appointment(s)/Referral(s): Rob Arias MD [Primary Care Provider] - 1-2 days Kallie Duff MD [STAFF PHYSICIAN] - 3 Weeks [facility] [NON-STAFF] - As Needed (Supplier of home oxygen and 4 wheeled walker) [facility], [NON-STAFF] - 1-2 Days Activity/Diet/Wound Care/Special Instructions: Eliquis filled at [facility] - copay is $4 Discharge Disposition: - Preliminary Cause of Preliminary Cause of : Covid 19 pneumonia
== END 2020-10-11 16:20 | disposition expired | DRG 177 ==
LOC: EC 07:16 → 4SSUR 10:39 → 6NMEDSUR 12:25 → OBSVTOIN 09-29 15:29 → 6NMEDSUR 10-04 22:43 → 3SCARD 10-09 14:49
PROVIDERS: ADMIT Family Medicine; ATTEND Family Medicine
PROC: XW033E5 Introduction of Remdesivir Anti-infective into Peripheral Vein, Percutaneous Approach, New Technology Group 5 (ICD-10-PCS; principal; 2020-09-30)
PROC: XW033H5 Introduction of Tocilizumab into Peripheral Vein, Percutaneous Approach, New Technology Group 5 (ICD-10-PCS; 2020-10-09)
PROC: 5A09357 Assistance with Respiratory Ventilation, Less than 24 Consecutive Hours, Continuous Positive Airway Pressure (ICD-10-PCS; 2020-10-09)
PROC: 5A0935A Assistance with Respiratory Ventilation, Less than 24 Consecutive Hours, High Flow/Velocity Cannula (ICD-10-PCS; 2020-10-11)
DX: U07.1 COVID-19 (principal); J12.82 Pneumonia due to coronavirus disease 2019; J96.01 Acute respiratory failure with hypoxia; I50.33 Acute on chronic diastolic (congestive) heart failure; E87.1 Hypo-osmolality and hyponatremia; K56.609 Unspecified intestinal obstruction, unspecified as to partial versus complete obstruction; K56.7 Ileus, unspecified; C83.39 Diffuse large B-cell lymphoma, extranodal and solid organ sites; D84.9 Immunodeficiency, unspecified; D70.1 Agranulocytosis secondary to cancer chemotherapy; I27.20 Pulmonary hypertension, unspecified; I71.2 Thoracic aortic aneurysm, without rupture; R13.10 Dysphagia, unspecified; Z51.5 Encounter for palliative care; I48.0 Paroxysmal atrial fibrillation; Z87.891 Personal history of nicotine dependence; Z80.3 Family history of malignant neoplasm of breast; Z80.52 Family history of malignant neoplasm of bladder; E78.5 Hyperlipidemia, unspecified; Z79.890 Hormone replacement therapy; Z85.3 Personal history of malignant neoplasm of breast; K21.9 Gastro-esophageal reflux disease without esophagitis; H91.90 Unspecified hearing loss, unspecified ear; Z90.710 Acquired absence of both cervix and uterus; Z90.49 Acquired absence of other specified parts of digestive tract; E03.9 Hypothyroidism, unspecified; G47.00 Insomnia, unspecified; E86.1 Hypovolemia; I11.0 Hypertensive heart disease with heart failure; J43.9 Emphysema, unspecified; M81.0 Age-related osteoporosis without current pathological fracture; Z82.3 Family history of stroke; E83.42 Hypomagnesemia; T45.1X5A Adverse effect of antineoplastic and immunosuppressive drugs, initial encounter; Z90.11 Acquired absence of right breast and nipple; D69.59 Other secondary thrombocytopenia; R79.89 Other specified abnormal findings of blood chemistry; Z87.01 Personal history of pneumonia (recurrent); Z86.14 Personal history of Methicillin resistant Staphylococcus aureus infection; Z80.7 Family history of other malignant neoplasms of lymphoid, hematopoietic and related tissues; Z80.0 Family history of malignant neoplasm of digestive organs; Z80.1 Family history of malignant neoplasm of trachea, bronchus and lung; M19.90 Unspecified osteoarthritis, unspecified site; R00.1 Bradycardia, unspecified; K43.9 Ventral hernia without obstruction or gangrene; R19.7 Diarrhea, unspecified; J05.0 Acute obstructive laryngitis [croup]; Z79.899 Other long term (current) drug therapy; Z88.7 Allergy status to serum and vaccine; Z88.8 Allergy status to other drugs, medicaments and biological substances; I08.3 Combined rheumatic disorders of mitral, aortic and tricuspid valves; Z66 Do not resuscitate
CPT/HCPCS: 36415; 36600; 70491; 71045; 71046; 71250; 74019; 74176; 76700; 80048; 80053; 82784; 82805; 83605; 83615; 83735; 83880; 84100; 84145; 84443; 84484; 84550; 85025; 85027; 85379; 85610; 85652; 85730; 86140; 87040; 87045; 87046; 87070; 87205; 87324; 94640; 94660; 94760; 96374; 96375; 99285